=== PATIENT | male | born 1935 | race Caucasian/White ===

== ENCOUNTER 2022-01-20 08:19 | Inpatient (IN) | payer OTHER, BC ==
[2022-01-20 08:37] LABS: Hematocrit 43.9 % (39.6-49.0); MPV 8.2 fL (7.6-11.3); RBC Red Blood Cell Count 4.93 M/uL (4.33-5.43)
--- OUTSIDE RECORDS SUMMARY | 2022-01-20 08:38 | XMS REPORT | Continuity of Care Document ---
:1935 Author Organization [facility] t Address [address] [place] [address] Care Team Providers Name Role Phone GIO DONAHUE Primary Care Physician Unavailable [id number] Attending Clinician Unavailable NADIA RDZ Attending Clinician Unavailable DANIAL BUTT Attending Clinician Unavailable Charlene COOK Attending Clinician Unavailable JAIDA Attending Clinician Unavailable JAIDA Attending Clinician Unavailable Carlos Rdz Attending Clinician Unavailable CARLOS RDZ Attending Clinician Unavailable Alvaro Hinton Attending Clinician Unavailable Susan JEROME Attending Clinician Unavailable Axel TENORIO S Attending Clinician Boubacar TENORIO Attending Clinician Taryn Veronica Attending Clinician Unavailable Doctor Unassigned, Name Attending Clinician Unavailable Naman TENORIO Carrillo Attending Clinician CARRILLO FLORENCE Attending Clinician Unavailable Provider, Urgent Care Attending Clinician Unavailable Jasen ERICKSON Attending Clinician JASEN Attending Clinician Unavailable Sher TENORIO Attending Clinician Nancy Hinton DO Attending Clinician Mehrdad ERICKSON Attending Clinician Sara TENORIO Attending Clinician Shravan Meredith MD Attending Clinician SHRAVAN MEREDITH Attending Clinician Unavailable SHRAVAN MEREDITH Attending Clinician Unavailable Danial Butt MD Attending Clinician Only, Test Attending Clinician Unavailable Kylah CHAPMAN Attending Clinician Only, Test Attending Clinician Unavailable Charlene Cook MD Attending Clinician Rj MENDES Attending Clinician Unavailable Robin Richardson MD Attending Clinician Robin RICHARDSON Attending Clinician Unavailable Robinson TENORIO Attending Clinician Pob, Lab Main Attending Clinician Unavailable Abhishek TENORIO Attending Clinician ABHISHEK Attending Clinician Unavailable RADIOLOGY Attending Clinician Unavailable Radiology Attending Clinician Unavailable Earle Wilkins MD Attending Clinician Unknown Attending Clinician Unavailable Afshin Wnin MD Attending Clinician [id number] Admitting Clinician Unavailable NADIA RDZ Admitting Clinician Unavailable DANIAL BUTT Admitting Clinician Unavailable Charlene COOK Admitting Clinician Unavailable CARLOS RDZ Admitting Clinician Unavailable Alvaro Hinton Admitting Clinician Unavailable Boubacar TENORIO Admitting Clinician Sara TENORIO Admitting Clinician Danial Butt MD Admitting Clinician Charlene Cook MD Admitting Clinician NEIDA VERONICA Admitting Clinician Unavailable Payers Payer Name Policy Type Policy Number Effective Date Expiration Date S [facility] [id number] BCTX BCTI [id number] BCBS FED SELECT [id number] 2000 00:00:00 MEDICARE PART A [id number] 2000 00:00:00 Advance Directives Directive Decision Effective Termination Comments Source Date Date Healthcare Agents on N/A [facility] ersity FileNameRelationshipHealthcare of [place] Agent Medical RelationshipCommunicationSuniversity hospitals st. 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 2-14 ity of congestive congestive 00:[place] heart heart 00 Medical failure failure Branch UTI UTI Disease Active Univers (urinary (urinary 2-14 ity of tract tract 00:00: [place] infection) infection) 00 Me dical Branch 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 Added automatic ally from request for surgery [id number] Bilateral Bilateral Disease Active Overview: Univers occipital occipital 6-04 Formattin i ty of neuralgia neuralgia 00:00: g of this [place] 00 note Medical might be Branch different from the original. Added automatic ally from request for surgery [id number] Cervical Cervical Disease Active Overview: Un brian spondylosi spondylosi 6-04 Formattin ity of s without s without 00:00: g of this [place] myelopathy myelopathy 00 note Me dical might be Branch different from the original. Added automatic ally from request for surgery [id number] Myalgia Myalgia Disease Active Overview: Univ ers 03-28 Formattin ity of 00:00: g of this [place] 00 note Medical might be Branch different from the original. Added automatic ally from request for surgery [id number] Left Left Disease Active Univers shoulder shoulder 03-04 ity of pain pain 00:00: [place] 00 Medical Branch Allergies, Adverse Reactions, Alerts Allergy Allergy Status Severity Reaction(s) Onset Inactive Treating Comm ents Source Name Type Date Date Clinician Penicill DA Active SV 2020-0 [facility] 03[facility]21 [place] [facility] meperidi DA Active SV 2020-0 [facility] ne 03-21 [place] 00:00: [facility] Penicill DA Active SV RASH 2020-0 [facility] ins 03-21 [place] 00:00: [facility] meperidi DA Active SV HALLUCINATIO 0 HC A ne NS 03-21 [place] 00:00: [facility] Penicill DA Active U UNKNOWN [facility] ins 01-29 00:00: [place] [facility] meperidi DA Active U UNKNOWN 2020-0 [facility] ne 01-29 00:00: [place] [facility] Penicill DA Active U 2020-0 [facility] ins 01-29 00:00: [place] [facility] meperidi DA Active U 2020-0 [facility] ne 01-29 00:00: [place] [facility] Meperidi Propensi Active Hallucinatio Univers ne Hcl ty to ns 5 ity of adverse 00:00: [place] reaction 00 Medical s Branch Penicill Propensi Active Rash Univer s ins ty to 5-11 ity of adverse 00:00: [place] reaction 00 Medical s Branch MEPERIDI DRUG Active Hallucinates 2015-0 Un brian NE HCL INGREDI 5-11 ity of 00:00: [place] [address] Medical Branch PENICILL Drug Active Rash 2015-0 Univers INS Class 5-11 ity of 00:00: [place] [address] Medical Branch Social History Social Habit Start Date Stop Date Quantity Comments Source Exposure to Unable to assess Univers ity of SARS-CoV-2 [place] Medical (event) Branch Alcohol intake 2021-03-30 2021-03-30 Current drinker of Un iversity of 00:00:00 00:00:00 alcohol (finding) [facility] edical Branch History SDOH 2021-03-30 2021-03-30 12 University o f Education 00:00:00 00:00:00 [facility] [place] [facility] Tobacco use and 2021-03-30 2021-03-30 Never used Universit y of exposure 00:00:00 00:00:00 [place] [facility] History SDAK 2020-06-14 2020-06-14 99 University o f Alcohol Frequency 00:00:00 00:00:00 [facility] edical Branch History SDOH 2020-06-14 2020-06-14 1 University o f Alcohol Std 00:00:00 00:00:00 [place] Medical Drinks Branch History SDAK 2020-06-14 2020-06-14 4 University o f Alcohol Binge 00:00:00 00:00:00 [facility] al Branch Tobacco Comment 2020-06-14 2020-06-14 quit 40 years ago Un iversity of 00:00:00 00:00:00 [facility] [place] [facility] Alcohol Comment 2018-08-08 2018-08-08 occaisonally Univers ity of 00:00:00 00:00:00 [facility] [place] [facility] Sex Ass[birth year] At [birth year] Universit y of 00:00:00 00:00:00 [facility] [place] [facility] Smoking Status Start Date Stop Date Source Former smoker 2021-03-30 00:00:00 2021-03-30 00:00:00 Universi ty of [facility] [place] [facility] Never smoker [facility] Medical Branch Medications Ordered Filled Start Stop Current Ordering Indication Dosage Frequency Signature Comments Components Source Medication Medication Date Date Medication? Clinician (SIG) Name Name aspirin Yes 81mg Take 81 mg Univ ers (KWAME 6-13 by mouth ity of CHEWABLE 18:50: daily. [place] ASPIRIN) 81 45 Medical mg chewable Branch tablet magnesium Yes 1{capsu Take 1 Uni vers oxide 400 6-13 le} capsule by ity of mg capsule 18:50: mouth [place] 45 daily. Medical Branch tamsulosin Yes tamsulosin U nivers 0.4 mg 24 6-13 0.4 mg ity of hr capsule 18:50: capsule [place] 45 Take 1 Medical capsule Branch every day by oral route as directed for 30 days. watch out for or stop if: headache, dizziness upon standing, or worsened nasal congestion . ascorbic Yes 500mg Take 500 Univ ers acid, 6-13 mg by ity of vitamin C, 18:50: mouth. [place] (VITAMIN C) 45 Medical 500 mg Branch Cranberry Yes 1{capsu Take 1 Uni vers 400 mg Cap 6-13 le} capsule by ity of 18:50: mouth 3 [place] 45 (three) Medical times Branch daily. loratadine Yes 10mg Take 10 mg U nivers (CLARITIN) 6-13 by mouth ity o f 10 mg 18:50: daily. [place] tablet 45 Medical Branch montelukast Yes 10mg Take 10 mg Univers 10 mg 6-13 by mouth. ity of tablet 18:50: [place] 45 Medical Branch fluticasone Yes Use in Uni vers propionate 6-13 each ity of 50 18:50: nostril [place] mcg/actuati 45 daily. Medica l on nasal Branch spray aspirin Yes 81mg Take 81 mg Univ ers (KWAME 6-13 by mouth ity of CHEWABLE 18:50: daily. [place] ASPIRIN) 81 45 Medical mg chewable Branch tablet magnesium Yes 1{capsu Take 1 Uni vers oxide 400 6-13 le} capsule by ity of mg capsule 18:50: mouth [place] 45 daily. Medical Branch tamsulosin Yes tamsulosin U nivers 0.4 mg 24 6-13 0.4 mg ity of hr capsule 18:50: capsule [place] 45 Take 1 Medical capsule Branch every day by oral route as directed for 30 days. watch out for or stop if: headache, dizziness upon standing, or worsened nasal congestion . ascorbic Yes 500mg Take 500 Univ ers acid, 6-13 mg by ity of vitamin C, 18:50: mouth. [place] (VITAMIN C) 45 Medical 500 mg Branch Cranberry Yes 1{capsu Take 1 Uni vers 400 mg Cap 6-13 le} capsule by ity of 18:50: mouth 3 [place] 45 (three) Medical times Branch daily. loratadine Yes 10mg Take 10 mg U nivers (CLARITIN) 6-13 by mouth ity o f 10 mg 18:50: daily. [place] tablet 45 Medical Branch montelukast Yes 10mg Take 10 mg Univers 10 mg 6-13 by mouth. ity of tablet 18:50: [place] 45 [facility] Branch fluticasone Yes Use in Uni vers propionate 6-13 each ity of 50 18:50: nostril [place] mcg/actuati 45 daily. Medica l on nasal Branch spray KCL 2020- No 40meq 40 mEq, Univers (KLOR-CON 04-06- Oral, ity of M20) tablet 17:00: 17:25 ONCE, 1 [place] 40 mEq 00 :00 dose, [place] [facility] 04/06/21 at Branch 1200, Routine metoprolol Yes 75mg 75 mg, Unive rs tartrate 6-13 Oral, BID, ity o f (LOPRESSOR) 15:30: First dose [place] tablet 75 00 (after Medical mg last Branch modificati on) on [place] 04/06/21 at 1030, Until Discontinu ed, Routine cyclobenzap Yes [id number] 10mg Take 1 Univers rine 10 mg 6-13 tablet by ity of tablet 00:00: mouth 3 [place] 00 (three) Medical times [place] daily as needed for Muscle Spasms. cyclobenzap Yes [id number] 10mg Take 1 Univers rine 10 mg 6-13 tablet by ity of tablet 00:00: mouth 3 [place] 00 (three) Medical times [place] daily as needed for Muscle Spasms. amoxicillin 202- No 1{tbl} 1 tablet, Univers -clavulanat 04-0517 Oral, ity of e 01:00: 00:59 Q12H, 10 [place] (AUGMENTIN) 00 :00 doses, Medica l 875-125 mg First dose Bra nch per tablet on Wed 1 tablet 04/04/21 at 2000, Last dose on 04/09/21 at 0800, Routine
Reason for Anti-Infec tive: Documented Infection< br>Documen chava Infection Site: Respirator y
Durat ion of Therapy: 7 days levothyroxi Yes 100ug Take 1 Uni vers ne 6-12 tablet by ity of (SYNTHROID) 00:00: mouth [place] 100 mcg 00 every Medical tablet morning. Branch levothyroxi Yes 100ug Take 1 Uni vers ne 6-12 tablet by ity of (SYNTHROID) 00:00: mouth [place] 100 mcg 00 every Medical tablet morning. Branch furosemide 2020- No [id number] 40mg Take 1 Univers 40 mg 04-05 00 tablet by ity of tablet 00:00: 04:59 mouth [place] 00 :00 daily for Medical 30 days. Branch metFORMIN 2020- No [id number] 500mg Take 1 Univers 500 mg 04-05 tablet by ity of tablet 00:00: 04:59 mouth [place] 00 :00 daily Medical before a Branch meal for 30 days. furosemide 2020- No [id number] 40mg Take 1 Univers 40 mg 04-05 00 tablet by ity of tablet 00:00: 04:59 mouth [place] 00 :00 daily for Medical 30 days. Branch metFORMIN 2020- No [id number] 500mg Take 1 Univers 500 mg 04-05 tablet by ity of tablet 00:00: 04:59 mouth [place] 00 :00 daily Medical before a Branch meal for 30 days. levoFLOXaci 2020- No [id number] 750mg Take 1 Univers n 750 mg 04-0518 tablet by ity o f tablet 00:00: 04:59 mouth [place] 00 :00 every 24 Medical (twenty-fo Branch ur) hours for 5 days. levoFLOXaci 2020- No [id number] 750mg Take 1 Univers n 750 mg 04-0518 tablet by ity o f tablet 00:00: 04:59 mouth [place] 00 :00 every 24 Medical (twenty-fo Branch ur) hours for 5 days. L.acid/L.ca 2020- No Take by U nivers sei/B.bif/B 04-04 mouth. ity o f .joanna/FOS 21:23: 00:00 [place] (PROBIOTIC 05 :00 Medical BLEND ORAL) Branch metoprolol 2020- No 25mg Take 25 mg Univers tartrate 25 04-04 by mouth 2 i ty of mg tablet 21:23: 00:00 (two) [place] 05 :00 times Medical daily. Branch sulfamethox 2020- No 1{tbl} Take 1 U nivers azole-trime 04-04 tablet by it y of thoprim 21:23: 00:00 mouth 2 [place] 800-160 mg 05 :00 (two) Medical per tablet times Branch daily. benzonatate 2020- No 100mg Take 100 Univers 100 mg 04-04 mg by ity of capsule 21:23: 00:00 mouth. [place] 05 :00 Medical Branch niacin TR Yes 1000mg Take 1 Univ ers SUSTAINED 6-11 tablet by ity o f RELEASE 00:00: mouth at [place] 1,000 mg 00 bedtime. Medical tablet Branch niacin TR Yes 1000mg Take 1 Univ ers SUSTAINED 6-11 tablet by ity o f RELEASE 00:00: mouth at [place] 1,000 mg 00 bedtime. Medical tablet Branch metoprolol 2020- No [id number] 75mg Take 75 mg Univers tartrate 75 04-04 00 by mouth 2 i ty of mg Tab 00:00: 04:59 (two) [place] 00 :00 times Medical daily for Branch 30 days. metoprolol 2020- No [id number] 75mg Take 75 mg Univers tartrate 75 04-04-12 00 by mouth 2 i ty of mg Tab 00:00: 04:59 (two) [place] 00 :00 times Medical daily for Branch 30 days. amoxicillin 2020- No [id number] 1{tbl} Take 1 Univers -clavulanat 04-04 tablet by it y of e 875-125 00:00: 04:59 mouth [place] mg per 00 :00 every 12 Medical tablet (twelve) Branch hours for 5 days. amoxicillin 2020- No [id number] 1{tbl} Take 1 Univers -clavulanat 04-0417 tablet by it y of e 875-125 00:00: 04:59 mouth [place] mg per 00 :00 every 12 Medical tablet (twelve) Branch hours for 5 days. sodium Yes 1{spray 1 [place], Univ ers chloride 6-10 } Nasal, ity of (OCEAN MIST 21:15: QID, First [place] NASAL) 0.65 00 dose on Medic al % nasal April Branch spray 1 04/03/21 at [place] 1615, Until Discontinu ed, Routine oxymetazoli Yes 1{spray 1 [place], Univers ne 6-10 } Nasal, ity of (OXYMETAZOL 21:10: BIDPRN, [place] as INE HCL) 01 Starting Medical 0.05 % April Branch nasal spray 04/03/21 at 1 [place] 1610, Until Discontinu ed, Routine, Nosebleed levoFLOXaci Yes 750mg 750 mg, Un brian n 6-10 Oral, Q24H ity of (LEVAQUIN) 14:15: ABX, First [place] tablet 750 00 dose on Medica l mg April Branch 04/03/21 at 0915, Until Discontinu ed, BRANDAN
Re ason for Anti-Infec tive: Documented Infection< br>Documen chava Infection Site: Respirator y
Durat ion of Therapy: 7 days piperacilli 2020- No 3.375g 3.375 g, Univers n-tazobacta 04-0311 IV ity of m (ZOSYN) 14:15: 21:16 Piggyback, [place] 3.375 g in 00 :37 Q6H ABX, Medic al NaCl 0.9% First dose Bran ch (NS) 100 mL on [place] MINI-BAG 04/03/21 at 0915, Until Discontinu ed, 100 mL
R alejandra for Anti-Infec tive: Documented Infection< br>Documen chava Infection Site: Respirator y
Durat ion of Therapy: 7 days furosemide Yes 40mg 40 mg, Unive rs (LASIX) 6-10 Oral, ity of tablet 40 14:00: DAILY, [place] mg 00 First dose Medical on [facility] Branch 04/03/21 at 0900, Until Discontinu ed, Routine KCL 2020- No 40meq 40 mEq, Univers (KLOR-CON 04-03 Oral, ity of M20) tablet 13:45: 14:12 ONCE, 1 [place] 40 mEq 00 :00 dose, [facility] Medical 04/03/21 at Branch 0845, Routine Sliding Yes Subcutaneo Univ ers Scale -10 us, TID ity of Insulin - 02:00: MEALS+HS, [place] as Lispro 00 First dose Medical (HumaLOG) + on Wed Fsbg 04/02/21 at [place] 2100, Until Discontinu ed, Routine furosemide 2020- No 20mg 20 mg, Univ ers (LASIX) 04-03 Slow IV ity of injection 01:00: 12:36 Push, [place] 20 mg 00 :16 Q12H, Medical First dose Branch (after last modificati on) on Wed04/02/21 at 2000, Until Discontinu ed, Routine ipratropium Yes 3mL 3 mL, Unive rs -albuteroL 04-02 Inhalation ity of (DUONEB) 19:26: , QIDPRN, [place] 0.5 mg-3 50 Starting Medical mg(2.5 mg Wed04/02/21 Bran ch base)/3 mL at 1426, nebulizer Until solution 3 Discontinu mL ed, Routine, Wheezing, Shortness of Breath metFORMIN Yes 500mg 500 mg, Univ ers (GLUCOPHAGE 04-02 Oral, ONCE it y of ) tablet 14:30: DAILY AC, [place] 500 mg 00 First dose Medical on [facility] Branch 04/02/21 at 0930, Until Discontinu ed, Routine losartan Yes 50mg 50 mg, Univers (COZAAR) 04-02 Oral, BID, ity o f tablet 50 14:15: First dose [place] mg 00 on [facility] 04/02/21 at Branch 0915, Until Discontinu ed, Routine sodium 2020- No 650mg 650 mg, Univer s bicarbonate 04-02 Oral, QID, i ty of (ANTACID 14:15: 12:19 First dose [place] (SODIUM 00 :48 on Wed Medical BICARBONATE 04/02/21 at [facility] )) tablet 0915, 650 mg Until Discontinu ed, Routine metoprolol No 75mg 75 mg, [facility] ers tartrate 04-02 Oral, BID, ity of (LOPRESSOR) 14:00: 14:35 First dose [place] tablet 75 00 :43 (after Medical mg last Branch modificati on) on Wed04/02/21 at 0900, Until Discontinu ed, Routine metoprolol No 50mg 50 mg, [facility] ers tartrate 04-02 Oral, BID, ity of (LOPRESSOR) 01:00: 13:50 First dose [place] tablet 50 00 :48 (after Medical mg last Branch modificati on) on Wed04/01/21 at 2000, Until Discontinu ed, Routine sodium No 50meq IV Univers bicarbonate 04-01 Infusion, it y of 50 mEq in 19:30: 14:13 at 75 [place] D5W 0.45% 00 :11 mL/hr, 50 Medic al NaCl mEq, Branch (1/2NS) CONTINUOUS 1,000 mL IV , Starting infusion Wed04/01/21 at 1430, Until Wed04/02/21 at 0913, Routine metoprolol No 25mg 25 mg, [facility] ers tartrate 04-01 Oral, ity of (LOPRESSOR) 19:15: 21:03 ONCE, 1 [place] tablet 25 00 :00 dose, Wed Medic al mg 04/01/21 at Branch 1415, Routine furosemide No 20mg 20 mg, [facility] ers (LASIX) 04-01 Slow IV ity of injection 17:45: 23:00 Push, [place] 20 mg 00 :50 DAILY, Medical First dose Branch on Wed04/01/21 at 1245, Until Discontinu ed, Routine levoFLOXaci No 500mg 500 mg, IV Univers n in D5W 04-01 06-10 Piggyback, ity of (LEVAQUIN) 14:00: 13:11 Q24H ABX, [place] 500 mg/100 00 :27 First dose Med ical mL on Branch Piggyback 04/01/21 at 500 mg 0900, Until Discontinu ed, 100 mL
R alejandra for Anti-Infec tive: Empiric Therapy for Suspected Infection< br>Empiric Therapy Site: Respirator y
Durat ion of therapy: 72 hours sodium 2020- No 50meq IV Univers bicarbonate 03-31 06-08 Infusion, it y of 50 mEq in 15:30: 15:29 at 75 [place] D5W 0.45% 00 :00 mL/hr, 50 Medic al NaCl mEq, Branch (1/2NS) CONTINUOUS 1,000 mL IV , Starting infusion Wed03/31/21 at 1030, Until Wed04/01/21 at 1029, Routine tamsulosin Yes .4mg 0.4 mg, Univ ers (FLOMAX) 03-31 Oral, ity of capsule 0.4 14:00: DAILY, [place] mg 00 First dose Medical on [facility] 03/31/21 at 0900, Until Discontinu ed, Routine montelukast Yes 10mg 10 mg, Univ ers (SINGULAIR) 03-31 Oral, ity of tablet 10 14:00: DAILY, [place] mg 00 First dose Medical on [facility] 03/31/21 at 0900, Until Discontinu ed, Routine finasteride Yes 5mg 5 mg, Unive rs (PROSCAR) 03-31 Oral, ity of tablet 5 mg 14:00: DAILY, [place] 00 First dose Medical on [facility] 03/31/21 at 0900, Until Discontinu ed, Routine aspirin Yes 81mg 81 mg, Univers chewable 03-31 Oral, ity of tablet 81 14:00: DAILY, [place] mg 00 First dose Medical on [facility] 03/31/21 at 0900, Until Discontinu ed, Routine levothyroxi Yes 100ug 100 mcg, U nivers ne 03-31 Oral, ity of (SYNTHROID) 11:00: QAM-0600, [place] tablet 100 00 First dose Med ical mcg on [facility] 03/31/21 at 0600, Until Discontinu ed, Routine metoprolol 2020- No 5mg 5 mg, Unive rs (LOPRESSOR) 03-31 06-07 Intravenou i ty of injection 5 05:00: 17:53 s, Q6H, [place] mg 00 :46 First dose Medical on Wed [place] 03/31/21 at 0000, Until Discontinu ed, Routine QUEtiapine 0 Yes 50mg 50 mg, Unive rs (SEROQUEL) -07 Oral, QHS, ity of tablet 50 02:00: First dose [place] mg 00 on [facility] 03/30/21 at [place] 2100, Until Discontinu ed, Routine niacin TR 2020-0 Yes 1000mg 1,000 mg, U nivers SUSTAINED - Oral, QHS, ity of RELEASE 02:00: First dose [place] (NIACIN TR) 00 on [place] [facility]ica l tablet 03/30/21 at [place] 1,000 mg 2100, Until Discontinu ed, Routine
burn crew member approving Non-formul radha medication : MEGADC
Reason for non-formul radha use: PATIENT CURRENTLY TAKING NONFORMULA RY PRODUCT sennosides Yes 8.6mg 8.6 mg, Uni vers (SENOKOT) 03-31 Oral, BID, ity of tablet 8.6 01:00: First dose [place] mg 00 on [facility] 03/30/21 at [place] 1999, Until Discontinu ed, Routine hydrALAZINE 0 Yes 100mg 100 mg, Un brian (APRESOLINE 03-31 Oral, BID, it y of ) tablet 01:00: First dose [place] 100 mg 00 on [facility] 03/30/21 at [place] 1999, Until Discontinu ed, Routine docusate 0 Yes 100mg 100 mg, Unive rs (COLACE) 03-31 Oral, BID, ity o f capsule 100 01:00: First dose [place] mg 00 on [facility] 03/30/21 at [place] 1999, Until Discontinu ed, Routine apixaban 0 Yes 1358 5mg 5 mg, Univers (ELIQUIS) 03-31 Oral, BID, ity of tablet 5 mg 01:00: First dose [place] 00 on [facility] 03/30/21 at [place] 1999, Until Discontinu ed, Routine amLODIPine 2020-0 Yes 5mg 5 mg, Univer s (NORVASC) 03-31 Oral, BID, ity of tablet 5 mg 01:00: First dose [place] 00 on [place] [facility] 03/30/21 at Branch 1999, Until Discontinu ed, Routine metoprolol No 25mg 25 mg, Univ ers tartrate 03-31 Oral, BID, ity of (LOPRESSOR) 01:00: 18:09 First dose [place] tablet 25 00 :07 on [place] [facility] mg 03/30/21 at Branch 1999, Until Discontinu ed, Routine metoprolol 2020- No 5mg 5 mg, Unive rs (LOPRESSOR) 03-31 Intravenou i ty of injection 5 01:00: 00:29 s, ONCE [place] mg 00 :00 NOW, 1 Medical dose, [facility] 03/30/21 at 2000, Routine rivastigmin Yes 4.5mg 4.5 mg, Un brian e tartrate 03-30 Oral, ity of (EXELON) 22:00: QAM+PM, [place] capsule 4.5 00 First dose Me dical mg on [facility] 03/30/21 at 1700, Until Discontinu ed
Facu lty member approving Restricted medication : MEGADC metoprolol No 5mg 5 mg, Unive rs (LOPRESSOR) 03-30 Intravenou i ty of injection 5 17:30: 16:41 s, ONCE [place] mg 00 :00 NOW, 1 Medical dose, [facility] 03/30/21 at 1230, Routine metroNIDAZO No 500mg 500 mg, IV Univers LE in NaCl 03-30 Infusion, ity of (iso-os) 17:00: 17:35 Q8H ABX, [place] (FLAGYL 00 :48 First dose Medica l I.V.) RTU on [facility] IV infusion 03/30/21 at 500 mg 1200, Until Discontinu ed, 100 mL
Reas on for Anti-Infec tive: Documented Infection< br>Documen chava Infection Site: Abdominal< br>Dura tion of Therapy: 7 days NaCl 0.9% No 1000mL at 75 [facility] ers (NS) IV 03-30 mL/hr, IV ity of infusion 15:30: 13:39 Infusion, [place] 1,000 mL 00 :30 CONTINUOUS Medic al , Starting Branch [place] 03/30/21 at 1030, Until 03/31/21 at 0839, Routine ciprofloxac 2020- No 200mg 200 mg, IV [facility] in in 5 % [id number] Piggyback, ity of dextrose 10:00: 00:03 Administer [place] (CIPRO) 00 :41 over 60 Medical piggyback Minutes, Branch 200 mg Q12H ABX, First dose on [place] 03/30/21 at 0500, Until Discontinu ed, BRANDAN
Re ason for Anti-Infec tive: Documented Infection< br>Documen chava Infection Site: Abdominal< br>Duratio n of Therapy: 7 days NaCl 0.9% 2020- No 30mL/kg at 999 [facility] (NS) bolus 03-30 mL/hr, ity of infusion 10:00: 10:29 2,244 mL [place] 2,244 mL 00 :00 (30 mL/kg Medica l ?74.8 kg), [place] IV Piggyback, ONCE, 1 dose, [place] 03/30/21 at 0500, STAT metroNIDAZO 2020- No 500mg 500 mg, U nivers LE (FLAGYL) 03-30 Oral, ity of tablet 500 10:00: 08:52 ONCE, 1 [place] mg 00 :00 dose, [facility] 03/30/21 at Branch 0500, Routine
Reason for Anti-Infec tive: Documented Infection< br>Documen chava Infection Site: Abdominal< br>Duratio n of Therapy: Other (see Comments) levoFLOXaci 2020- No 750mg 750 mg, IV [facility] n in D5W 03-30 Piggyback, ity of (LEVAQUIN) 09:45: 10:21 ONCE, 1 [place] 750 mg/150 00 :00 dose, [place] Medi shilpa mL 03/30/21 at Branch Piggyback 0445, 150 750 mg mL
Reas on for Anti-Infec tive: Documented Infection< br>Documen chava Infection Site: Respirator y
Durat ion of Therapy: Other (see Comments) ondansetron Yes 4mg 4 mg, Slow [facility] (ZOFRAN 03-30 IV Push, ity of (PF)) 08:46: Q6HPRN, [place] injection 4 16 Starting Medi shilpa mg [place] 03/30/21 Branch at 0346, Until Discontinu ed, Routine, Nausea and Vomiting (N/V) acetaminoph Yes 650mg 650 mg, [facility] en 06 Oral, ity of (TYLENOL) 08:45: Q6HPRN, [place] tablet 650 58 Starting Medic al mg 03/30/21 Branch at 0345, Until Discontinu ed, Routine, Pain (scale 1-3), Temp > 38.5 C sulfamethox 1- No [id number] 1{tbl} Take 1 [facility] azole-trime 3-18 02-04 tablet by it y of oprim 00:00: 04:59 mouth 2 [place] (BACTRIM 00 :00 (two) Medical DS) 800-160 times Branch mg per daily for tablet 7 days. tetanus-dip 2020- No .5mL 0.5 mL, [facility] htheria 12-16 Intramuscu ity o f toxoids 16:45: 15:50 lar, ONCE, [place] (TENIVAC) 00 :00 1 dose, Medical 5-2 Lf Mon Branch unit/0.5 mL 12/16/20 at injection 1045, 0.5 mL Routine KCL 20 mEq 2020- No [id number] 20meq Take 1 [facility] tablet -12 01-24 tablet by ity of 00:00: 04:59 mouth [place] 00 :00 daily for Medical 30 days. Branch KCL 20 mEq 0 2020- No [id number] 20meq Take 1 [facility] tablet 2-12 01-24 tablet by ity of 00:00: 04:59 mouth [place] 00 :00 daily for Medical 30 days. Branch KCL 20 mEq 2020-0 2020- No [id number] 20meq Take 1 [facility] tablet 2-12 01-24 tablet by ity of 00:00: 04:59 mouth [place] 00 :00 daily for Medical 30 days. Branch KCL 20 mEq 2020-0 2020- No [id number] 20meq Take 1 [facility] tablet 2-21 03-24 tablet by ity of 00:00: 04:59 mouth [place] 00 :00 daily for Medical 30 days. Branch aspirin Yes 81mg Take 81 mg Univ ers (KWAME 2-20 by mouth ity of CHEWABLE 21:25: daily. [place] ASPIRIN) 81 05 Medical mg chewable Branch tablet magnesium Yes 1{capsu Take 1 Uni vers oxide 400 2-20 le} capsule by ity of mg capsule 21:25: mouth [place] 05 daily. Medical Branch tamsulosin Yes tamsulosin [facility] n[facility] 0.4 mg 24 2-20 0.4 mg ity of hr capsule 21:25: capsule [place] 05 Take 1 Medical capsule Branch every day by oral route as directed for 30 days. watch out for or stop if: headache, dizziness upon standing, or worsened nasal congestion . L.acid/L.ca Yes Take by [place] sei/B.bif/B 2-20 mouth. ity of .joanna/FOS 21:25: [place] (PROBIOTIC 05 Medical BLEND ORAL) Branch ascorbic Yes 500mg Take 500 Univ ers acid, 2-20 mg by ity of vitamin C, 21:25: mouth. [place] (VITAMIN C) 05 Medical 500 mg Branch Cranberry Yes 1{capsu Take 1 Uni vers 400 mg Cap 2-20 le} capsule by ity of 21:25: mouth 3 [place] 05 (three) Medical times Branch daily. loratadine Yes 10mg Take 10 mg U nivers (CLARITIN) 2-20 by mouth ity o f 10 mg 21:25: daily. [place] tablet 05 Medical Branch aspirin Yes 81mg Take 81 mg Univ ers (KWAME 2-20 by mouth ity of CHEWABLE 21:25: daily. [place] ASPIRIN) 81 05 Medical mg chewable Branch tablet magnesium Yes 1{capsu Take 1 Uni vers oxide 400 2-20 le} capsule by ity of mg capsule 21:25: mouth [place] 05 daily. Medical Branch tamsulosin Yes tamsulosin U n[facility] 0.4 mg 24 2-20 0.4 mg ity of hr capsule 21:25: capsule [place] 05 Take 1 Medical capsule Branch every day by oral route as directed for 30 days. watch out for or stop if: headache, dizziness upon standing, or worsened nasal congestion . L.acid/L.ca Yes Take by [facility] [place] sei/B.bif/B 2-20 mouth. ity of .joanna/FOS 21:25: [place] (PROBIOTIC 05 Medical BLEND ORAL) Branch ascorbic Yes 500mg Take 500 Univ ers acid, 2-20 mg by ity of vitamin C, 21:25: mouth. [place] (VITAMIN C) 05 Medical 500 mg Branch Cranberry Yes 1{capsu Take 1 Uni vers 400 mg Cap 2-20 le} capsule by ity of 21:25: mouth 3 [place] 05 (three) Medical times Branch daily. loratadine Yes 10mg Take 10 mg U nivers (CLARITIN) 2-20 by mouth ity o f 10 mg 21:25: daily. [place] tablet 05 Medical Branch aspirin Yes 81mg Take 81 mg Univ ers (KWAME 2-20 by mouth ity of CHEWABLE 21:25: daily. [place] ASPIRIN) 81 05 Medical mg chewable Branch tablet magnesium Yes 1{capsu Take 1 Uni vers oxide 400 2-20 le} capsule by ity of mg capsule 21:25: mouth [place] 05 daily. Medical Branch tamsulosin Yes tamsulosin [facility] 0.4 mg 24 2-20 0.4 mg ity of hr capsule 21:25: capsule [place] 05 Take 1 Medical capsule Branch every day by oral route as directed for 30 days. watch out for or stop if: headache, dizziness upon standing, or worsened nasal congestion . L.acid/L.ca Yes Take by [facility] sei/B.bif/B 2-20 mouth. ity of .joanna/FOS 21:25: [place] (PROBIOTIC 05 Medical BLEND ORAL) Branch ascorbic Yes 500mg Take 500 Univ ers acid, 2-20 mg by ity of vitamin C, 21:25: mouth. [place] (VITAMIN C) 05 Medical 500 mg Branch Cranberry Yes 1{capsu Take 1 Uni vers 400 mg Cap 2-20 le} capsule by ity of 21:25: mouth 3 [place] 05 (three) Medical times Branch daily. loratadine Yes 10mg Take 10 mg U nivers (CLARITIN) 2-20 by mouth ity o f 10 mg 21:25: daily. [place] tablet 05 Medical Branch aspirin Yes 81mg Take 81 mg Univ ers (KWAME 2-20 by mouth ity of CHEWABLE 21:25: daily. [place] ASPIRIN) 81 05 Medical mg chewable Branch tablet magnesium Yes 1{capsu Take 1 Uni vers oxide 400 2-20 le} capsule by ity of mg capsule 21:25: mouth [place] 05 daily. Medical Branch tamsulosin Yes tamsulosin U nivers 0.4 mg 24 2-20 0.4 mg ity of hr capsule 21:25: capsule [place] 05 Take 1 Medical capsule Branch every day by oral route as directed for 30 days. watch out for or stop if: headache, dizziness upon standing, or worsened nasal congestion . L.acid/L.ca Yes Take by [facility] sei/B.bif/B 2-20 mouth. ity of .joanna/FOS 21:25: [place] (PROBIOTIC 05 Medical BLEND ORAL) Branch ascorbic Yes 500mg Take 500 Univ ers acid, 2-20 mg by ity of vitamin C, 21:25: mouth. [place] (VITAMIN C) 05 Medical 500 mg Branch Cranberry Yes 1{capsu Take 1 Uni vers 400 mg Cap 2-20 le} capsule by ity of 21:25: mouth 3 [place] 05 (three) Medical times Branch daily. loratadine Yes 10mg Take 10 mg U nivers (CLARITIN) 2-20 by mouth ity o f 10 mg 21:25: daily. [place] tablet 05 Medical Branch aspirin Yes 81mg Take 81 mg Univ ers (KWAME 2-20 by mouth ity of CHEWABLE 21:25: daily. [place] ASPIRIN) 81 05 Medical mg chewable Branch tablet magnesium Yes 1{capsu Take 1 Uni vers oxide 400 2-20 le} capsule by ity of mg capsule 21:25: mouth [place] 05 daily. Medical Branch tamsulosin Yes tamsulosin U n[facility] 0.4 mg 24 2-20 0.4 mg ity of hr capsule 21:25: capsule [place] 05 Take 1 Medical capsule Branch every day by oral route as directed for 30 days. watch out for or stop if: headache, dizziness upon standing, or worsened nasal congestion . L.acid/L.ca Yes Take by [facility] sei/B.bif/B 2-20 mouth. ity of .joanna/FOS 21:25: [place] (PROBIOTIC 05 Medical BLEND ORAL) Branch ascorbic Yes 500mg Take 500 Univ ers acid, 2-20 mg by ity of vitamin C, 21:25: mouth. [place] (VITAMIN C) 05 Medical 500 mg Branch Cranberry Yes 1{capsu Take 1 Uni vers 400 mg Cap 2-20 le} capsule by ity of 21:25: mouth 3 [place] 05 (three) Medical times Branch daily. loratadine Yes 10mg Take 10 mg U nivers (CLARITIN) 2-20 by mouth ity o f 10 mg 21:25: daily. [place] tablet 05 Medical Branch aspirin Yes 81mg Take 81 mg Univ ers (KWAME 2-20 by mouth ity of CHEWABLE 21:25: daily. [place] ASPIRIN) 81 05 Medical mg chewable Branch tablet magnesium Yes 1{capsu Take 1 Uni vers oxide 400 2-20 le} capsule by ity of mg capsule 21:25: mouth [place] 05 daily. Medical Branch tamsulosin Yes tamsulosin U n[facility] 0.4 mg 24 2-20 0.4 mg ity of hr capsule 21:25: capsule [place] 05 Take 1 Medical capsule Branch every day by oral route as directed for 30 days. watch out for or stop if: headache, dizziness upon standing, or worsened nasal congestion . L.acid/L.ca Yes Take by [facility] sei/B.bif/B 2-20 mouth. ity of .joanna/FOS 21:25: [place] (PROBIOTIC 05 Medical BLEND ORAL) Branch ascorbic Yes 500mg Take 500 Univ ers acid, 2-20 mg by ity of vitamin C, 21:25: mouth. [place] (VITAMIN C) 05 Medical 500 mg Branch Cranberry Yes 1{capsu Take 1 Uni vers 400 mg Cap 2-20 le} capsule by ity of 21:25: mouth 3 [place] 05 (three) Medical times Branch daily. loratadine Yes 10mg Take 10 mg U nivers (CLARITIN) 2-20 by mouth ity o f 10 mg 21:25: daily. [place] tablet 05 Medical Branch aspirin Yes 81mg Take 81 mg Univ ers (KWAME 2-20 by mouth ity of CHEWABLE 21:25: daily. [place] ASPIRIN) 81 05 Medical mg chewable Branch tablet magnesium Yes 1{capsu Take 1 Uni vers oxide 400 2-20 le} capsule by ity of mg capsule 21:25: mouth [place] 05 daily. Medical Branch tamsulosin Yes tamsulosin U nivers 0.4 mg 24 2-20 0.4 mg ity of hr capsule 21:25: capsule [place] 05 Take 1 Medical capsule Branch every day by oral route as directed for 30 days. watch out for or stop if: headache, dizziness upon standing, or worsened nasal congestion . L.acid/L.ca Yes Take by [facility] sei/B.bif/B 2-20 mouth. ity of .joanna/FOS 21:25: [place] (PROBIOTIC 05 Medical BLEND ORAL) Branch ascorbic Yes 500mg Take 500 Univ ers acid, 2-20 mg by ity of vitamin C, 21:25: mouth. [place] (VITAMIN C) 05 Medical 500 mg Branch Cranberry Yes 1{capsu Take 1 Uni vers 400 mg Cap 2-20 le} capsule by ity of 21:25: mouth 3 [place] 05 (three) Medical times Branch daily. loratadine Yes 10mg Take 10 mg U nivers (CLARITIN) 2-20 by mouth ity o f 10 mg 21:25: daily. [place] tablet 05 Medical Branch aspirin Yes 81mg Take 81 mg Univ ers (KWAME 2-20 by mouth ity of CHEWABLE 21:25: daily. [place] ASPIRIN) 81 05 Medical mg chewable Branch tablet magnesium Yes 1{capsu Take 1 Uni vers oxide 400 2-20 le} capsule by ity of mg capsule 21:25: mouth [place] 05 daily. Medical Branch tamsulosin Yes tamsulosin U nivers 0.4 mg 24 2-20 0.4 mg ity of hr capsule 21:25: capsule [place] 05 Take 1 Medical capsule Branch every day by oral route as directed for 30 days. watch out for or stop if: headache, dizziness upon standing, or worsened nasal congestion . L.acid/L.ca Yes Take by [facility] sei/B.bif/B 2-20 mouth. ity of .joanna/FOS 21:25: [place] (PROBIOTIC 05 Medical BLEND ORAL) Branch ascorbic Yes 500mg Take 500 Univ ers acid, 2-20 mg by ity of vitamin C, 21:25: mouth. [place] (VITAMIN C) 05 Medical 500 mg Branch Cranberry Yes 1{capsu Take 1 Uni vers 400 mg Cap 2-20 le} capsule by ity of 21:25: mouth 3 [place] 05 (three) Medical times Branch daily. loratadine Yes 10mg Take 10 mg U nivers (CLARITIN) 2-20 by mouth ity o f 10 mg 21:25: daily. [place] tablet 05 Medical Branch aspirin Yes 81mg Take 81 mg Univ ers (KWAME 2-20 by mouth ity of CHEWABLE 21:25: daily. [place] ASPIRIN) 81 05 Medical mg chewable Branch tablet magnesium Yes 1{capsu Take 1 Uni vers oxide 400 2-20 le} capsule by ity of mg capsule 21:25: mouth [place] 05 daily. Medical Branch tamsulosin Yes tamsulosin U n[facility] 0.4 mg 24 2-20 0.4 mg ity of hr capsule 21:25: capsule [place] 05 Take 1 Medical capsule Branch every day by oral route as directed for 30 days. watch out for or stop if: headache, dizziness upon standing, or worsened nasal congestion . L.acid/L.ca Yes Take by [facility] sei/B.bif/B 2-20 mouth. ity of .joanna/FOS 21:25: [place] (PROBIOTIC 05 Medical BLEND ORAL) Branch ascorbic Yes 500mg Take 500 Univ ers acid, 2-20 mg by ity of vitamin C, 21:25: mouth. [place] (VITAMIN C) 05 Medical 500 mg Branch Cranberry Yes 1{capsu Take 1 Uni vers 400 mg Cap 2-20 le} capsule by ity of 21:25: mouth 3 [place] 05 (three) Medical times Branch daily. loratadine Yes 10mg Take 10 mg [facility] (CLARITIN) 2-20 by mouth ity o f 10 mg 21:25: daily. [place] tablet 05 Medical Branch aspirin Yes 81mg Take 81 mg Univ ers (KWAME 2-20 by mouth ity of CHEWABLE 21:25: daily. [place] ASPIRIN) 81 05 Medical mg chewable Branch tablet magnesium Yes 1{capsu Take 1 Uni vers oxide 400 2-20 le} capsule by ity of mg capsule 21:25: mouth [place] 05 daily. Medical Branch tamsulosin Yes tamsulosin U n[facility] 0.4 mg 24 2-20 0.4 mg ity of hr capsule 21:25: capsule [place] 05 Take 1 Medical capsule Branch every day by oral route as directed for 30 days. watch out for or stop if: headache, dizziness upon standing, or worsened nasal congestion . L.acid/L.ca Yes Take by [facility] sei/B.bif/B 2-20 mouth. ity of .joanna/FOS 21:25: [place] (PROBIOTIC 05 Medical BLEND ORAL) [place] ascorbic Yes 500mg Take 500 Univ ers acid, 2-20 mg by ity of vitamin C, 21:25: mouth. [place] (VITAMIN C) [address] [place] [address] 500 mg Branch Cranberry Yes 1{capsu Take 1 Uni vers 400 mg Cap 2-20 le} capsule by ity of 21:25: mouth 3 [place] 05 (three) Medical times Branch daily. loratadine Yes 10mg Take 10 mg U n[facility] (CLARITIN) 2-20 by mouth ity o f 10 mg 21:25: daily. [place] tablet 05 Medical Branch nystatin Yes Topical, [facility] (MYCOSTATIN 2-20 BID, First it y of ) cream 16:00: dose on [place] [facility] 12/14/20 at Branch 1000, Until Discontinu ed, Routine bisacodyL No 10mg 10 mg, [facility] (DULCOLAX) 2-20 02-20 Rectal, ity o f suppository 15:30: 14:39 ONCE, 1 [place] 10 mg 00 :00 dose, [facility] 12/14/20 at Branch 0930, Routine hydrALAZINE 2020-0 Yes [id number] 100mg Take 1 [facility] 100 mg 2-20 tablet by ity of tablet 00:00: mouth 2 (two) Medical times Branch daily. losartan 50 2020-0 Yes [id number] 50mg Take 1 [facility] mg tablet 2-20 tablet by ity o f 00:00: mouth 2 00 (two) Medical times Branch daily. amLODIPine 2020-0 Yes [id number] 5mg Take 1 U n[facility] 5 mg tablet 2-20 tablet by ity of 00:00: mouth 2 (two) Medical times Branch daily. apixaban 5 2020-0 Yes 1358 5mg Take 1 [facility] mg tablet 2-20 tablet by ity o f 00:00: mouth 2 (two) Medical times Branch daily. Indication s: atrial fibrillati on docusate 0 Yes [id number] 100mg Take 1 [facility] 100 mg 2-20 capsule by ity of capsule 00:00: mouth 2 [place] (two) Medical times Branch daily. lactobacill 0 Yes [id number] 1{tbl} Take 1 [facility] us 2-20 tablet by ity of acidophilus 00:00: mouth 2 [place] 25 million 00 (two) Medical cell -100 times Branch mg captab daily. nystatin Yes [id number] Apply to [facility] 100,000 2-20 area(s) 2 ity of unit/gram 00:00: (two) [place] cream 00 times Medical daily. Branch sennosides 0 Yes [id number] 8.6mg Take 1 [facility] 8.6 mg 2-20 tablet by ity of tablet 00:00: mouth 2 [place] 00 (two) Medical times Branch daily. QUEtiapine 2020-0 Yes [id number] 50mg Take 1 U nivers 50 mg 2-20 tablet by ity of tablet 00:00: mouth [place] 00 every Medical evening. Branch metoprolol 2020-0 Yes [id number] 100mg Take 1 [facility] succinate 2-20 tablet by ity o f XL 100 mg 00:00: mouth 2 [place] 24 hr 00 (two) Medical tablet times Branch daily. hydrALAZINE 2020-0 Yes [id number] 100mg Take 1 [facility] 100 mg 2-20 tablet by ity of tablet 00:00: mouth 2 (two) Medical times Branch daily. losartan 50 2020-0 Yes [id number] 50mg Take 1 [facility] mg tablet 2-20 tablet by ity o f 00:00: mouth 2 (two) Medical times Branch daily. amLODIPine 2020-0 Yes [id number] 5mg Take 1 U nivers 5 mg tablet 2-20 tablet by ity of 00:00: mouth 2 [place] 00 (two) Medical times Branch daily. apixaban 5 2020-0 Yes 1358 5mg Take 1 [facility] rs mg tablet 2-20 tablet by ity o f 00:00: mouth 2 (two) Medical times Branch daily. Indication s: atrial fibrillati on docusate Yes [id number] 100mg Take 1 [facility] 100 mg 2-20 capsule by ity of capsule 00:00: mouth 2 [place] (two) Medical times Branch daily. lactobacill 2020- Yes [id number] 1{tbl} Take 1 [facility] us 2-20 tablet by ity of acidophilus 00:00: mouth 2 [place] 25 million 00 (two) Medical cell -100 times Branch mg captab daily. nystatin Yes [id number] Apply to [facility] 100,000 2-20 area(s) 2 ity of unit/gram 00:00: (two) [place] cream 00 times Medical daily. Branch sennosides Yes [id number] 8.6mg Take 1 [facility] 8.6 mg 2-20 tablet by ity of tablet 00:00: mouth 2 [place] (two) Medical times Branch daily. QUEtiapine 0 Yes [id number] 50mg Take 1 U nivers 50 mg 2-20 tablet by ity of tablet 00:00: mouth [place] 00 every Medical evening. Branch metoprolol 0 Yes [id number] 100mg Take 1 [facility] succinate 2-20 tablet by ity o f XL 100 mg 00:00: mouth 2 [place] 24 hr 00 (two) Medical tablet times Branch daily. hydrALAZINE 2020-0 Yes [id number] 100mg Take 1 [facility] 100 mg 2-20 tablet by ity of tablet 00:00: mouth 2 [place] 00 (two) Medical times Branch daily. losartan 50 2020-0 Yes [id number] 50mg Take 1 [facility] mg tablet 2-20 tablet by ity o f 00:00: mouth 2 (two) Medical times Branch daily. amLODIPine 2020-0 Yes [id number] 5mg Take 1 U nivers 5 mg tablet 2-20 tablet by ity of 00:00: mouth 2 00 (two) Medical times Branch daily. apixaban 5 2020-0 Yes 1358 5mg Take 1 [facility] mg tablet 2-20 tablet by ity o f 00:00: mouth 2 (two) Medical times Branch daily. Indication s: atrial fibrillati on docusate 2020-0 Yes [id number] 100mg Take 1 [facility] 100 mg 2-20 capsule by ity of capsule 00:00: mouth 2 (two) Medical times Branch daily. lactobacill Yes [id number] 1{tbl} Take 1 [facility] us 2-20 tablet by ity of acidophilus 00:00: mouth 2 [place] 25 million 00 (two) Medical cell -100 times Branch mg captab daily. nystatin Yes [id number] Apply to [facility] 100,000 2-20 area(s) 2 ity of unit/gram 00:00: (two) [place] cream 00 times Medical daily. Branch sennosides Yes [id number] 8.6mg Take 1 [facility] 8.6 mg 2-20 tablet by ity of tablet 00:00: mouth 2 (two) Medical times Branch daily. QUEtiapine 2020-0 Yes [id number] 50mg Take 1 U nivers 50 mg 2-20 tablet by ity of tablet 00:00: mouth [place] 00 every Medical evening. Branch metoprolol 0 Yes [id number] 100mg Take 1 [facility] succinate 2-20 tablet by ity o f XL 100 mg 00:00: mouth 2 [place] 24 hr 00 (two) Medical tablet times Branch daily. hydrALAZINE 2020-0 Yes [id number] 100mg Take 1 [facility] 100 mg 2-20 tablet by ity of tablet 00:00: mouth 2 00 (two) Medical times Branch daily. losartan 50 2020-0 Yes [id number] 50mg Take 1 [facility] mg tablet 2-20 tablet by ity o f 00:00: mouth 2 [place] 00 (two) Medical times Branch daily. amLODIPine Yes [id number] 5mg Take 1 U nivers 5 mg tablet 2-20 tablet by ity of 00:00: mouth 2 (two) Medical times Branch daily. apixaban 5 2020-0 Yes 1358 5mg Take 1 [facility] mg tablet 2-20 tablet by ity o f 00:00: mouth 2 (two) Medical times Branch daily. Indication s: atrial fibrillati on docusate Yes [id number] 100mg Take 1 [facility] 100 mg 2-20 capsule by ity of capsule 00:00: mouth 2 (two) Medical times Branch daily. lactobacill 2020- Yes [id number] 1{tbl} Take 1 [facility] us 2-20 tablet by ity of acidophilus 00:00: mouth 2 [place] 25 million (two) Medical cell -100 times Branch mg captab daily. nystatin Yes [id number] Apply to [facility] 100,000 2-20 area(s) 2 ity of unit/gram 00:00: (two) [place] cream 00 times Medical daily. Branch sennosides Yes [id number] 8.6mg Take 1 [facility] 8.6 mg 2-20 tablet by ity of tablet 00:00: mouth 2 [place] (two) Medical times Branch daily. QUEtiapine Yes [id number] 50mg Take 1 U nivers 50 mg 2-20 tablet by ity of tablet 00:00: mouth 00 every Medical evening. Branch metoprolol Yes [id number] 100mg Take 1 [facility] succinate 2-20 tablet by ity o f XL 100 mg 00:00: mouth 2 [place] 24 hr 00 (two) Medical tablet times Branch daily. hydrALAZINE 2020-0 Yes [id number] 100mg Take 1 [facility] 100 mg 2-20 tablet by ity of tablet 00:00: mouth 2 [place] (two) Medical times Branch daily. losartan 50 2020-0 Yes [id number] 50mg Take 1 [facility] mg tablet 2-20 tablet by ity o f 00:00: mouth 2 [place] 00 (two) Medical times Branch daily. amLODIPine 2020-0 Yes [id number] 5mg Take 1 U nivers 5 mg tablet 2-20 tablet by ity of 00:00: mouth 2 00 (two) Medical times Branch daily. apixaban 5 0 Yes 1358 5mg Take 1 [facility] mg tablet 2-20 tablet by ity o f 00:00: mouth 2 (two) Medical times Branch daily. Indication s: atrial fibrillati on docusate Yes [id number] 100mg Take 1 [facility] 100 mg 2-20 capsule by ity of capsule 00:00: mouth 2 (two) Medical times Branch daily. lactobacill Yes [id number] 1{tbl} Take 1 [facility] us 2-20 tablet by ity of acidophilus 00:00: mouth 2 [place] 25 million 00 (two) Medical cell -100 times Branch mg captab daily. nystatin Yes [id number] Apply to [facility] 100,000 2-20 area(s) 2 ity of unit/gram 00:00: (two) [place] cream 00 times Medical daily. Branch sennosides Yes [id number] 8.6mg Take 1 [facility] 8.6 mg 2-20 tablet by ity of tablet 00:00: mouth (two) Medical times Branch daily. QUEtiapine Yes [id number] 50mg Take 1 U nivers 50 mg 2-20 tablet by ity of tablet 00:00: mouth 00 every Medical evening. Branch metoprolol Yes [id number] 100mg Take 1 [facility] succinate 2-20 tablet by ity o f XL 100 mg 00:00: mouth 2 [place] 24 hr 00 (two) Medical tablet times Branch daily. hydrALAZINE Yes [id number] 100mg Take 1 [facility] 100 mg 2-20 tablet by ity of tablet 00:00: mouth 00 (two) Medical times Branch daily. losartan 50 0 Yes [id number] 50mg Take 1 [facility] mg tablet 2-20 tablet by ity o f 00:00: mouth 2 (two) Medical times Branch daily. amLODIPine Yes [id number] 5mg Take 1 U nivers 5 mg tablet 2-20 tablet by ity of 00:00: mouth 2 [place] 00 (two) Medical times Branch daily. apixaban 5 2021-0 Yes 1358 5mg Take 1 [facility] rs mg tablet 2-20 tablet by ity o f 00:00: mouth 2 (two) Medical times Branch daily. Indication s: atrial fibrillati on docusate Yes [id number] 100mg Take 1 [facility] 100 mg 2-20 capsule by ity of capsule 00:00: mouth 2 00 (two) Medical times Branch daily. lactobacill 2020- Yes [id number] 1{tbl} Take 1 [facility] us 2-20 tablet by ity of acidophilus 00:00: mouth 2 [place] 25 million 00 (two) Medical cell -100 times Branch mg captab daily. nystatin Yes [id number] Apply to [facility] 100,000 2-20 area(s) 2 ity of unit/gram 00:00: (two) [place] cream 00 times Medical daily. Branch sennosides Yes [id number] 8.6mg Take 1 [facility] 8.6 mg 2-20 tablet by ity of tablet 00:00: mouth 2 (two) Medical times Branch daily. QUEtiapine Yes [id number] 50mg Take 1 U nivers 50 mg 2-20 tablet by ity of tablet 00:00: mouth [place] 00 every Medical evening. Branch metoprolol Yes [id number] 100mg Take 1 [facility] succinate 2-20 tablet by ity o f XL 100 mg 00:00: mouth 2 [place] 24 hr 00 (two) Medical tablet times Branch daily. hydrALAZINE 0 Yes [id number] 100mg Take 1 [facility] 100 mg 2-20 tablet by ity of tablet 00:00: mouth 2 00 (two) Medical times Branch daily. losartan 50 2020-0 Yes [id number] 50mg Take 1 [facility] mg tablet 2-20 tablet by ity o f 00:00: mouth 2 00 (two) Medical times Branch daily. amLODIPine 2020-0 Yes [id number] 5mg Take 1 U nivers 5 mg tablet 2-20 tablet by ity of 00:00: mouth 2 00 (two) Medical times Branch daily. apixaban 5 2020-0 Yes [id number] 5mg Take 1 [facility] rs mg tablet 2-20 tablet by ity o f 00:00: mouth 2 (two) Medical times Branch daily. Indication s: atrial fibrillati on docusate Yes [id number] 100mg Take 1 [facility] 100 mg 2-20 capsule by ity of capsule 00:00: mouth 2 [place] (two) Medical times Branch daily. lactobacill Yes [id number] 1{tbl} Take 1 [facility] us 2-20 tablet by ity of acidophilus 00:00: mouth 2 [place] 25 million 00 (two) Medical cell -100 times Branch mg captab daily. nystatin Yes [id number] Apply to [facility] 100,000 2-20 area(s) 2 ity of unit/gram 00:00: (two) [place] cream 00 times Medical daily. Branch sennosides Yes [id number] 8.6mg Take 1 [facility] 8.6 mg 2-20 tablet by ity of tablet 00:00: mouth [place] (two) Medical times Branch daily. QUEtiapine Yes [id number] 50mg Take 1 U nivers 50 mg 2-20 tablet by ity of tablet 00:00: mouth every Medical evening. Branch metoprolol Yes [id number] 100mg Take 1 [facility] succinate 2-20 tablet by ity o f XL 100 mg 00:00: mouth 2 [place] 24 hr 00 (two) Medical tablet times Branch daily. hydrALAZINE Yes [id number] 100mg Take 1 [facility] 100 mg 2-20 tablet by ity of tablet 00:00: mouth [place] (two) Medical times Branch daily. losartan 50 Yes [id number] 50mg Take 1 [facility] mg tablet 2-20 tablet by ity o f 00:00: mouth [place] (two) Medical times Branch daily. amLODIPine Yes [id number] 5mg Take 1 U nivers 5 mg tablet 2-20 tablet by ity of 00:00: mouth [place] (two) Medical times Branch daily. apixaban 5 2020- Yes [id number] 5mg Take 1 [facility] rs mg tablet 2-20 tablet by ity o f 00:00: mouth 2 [place] (two) Medical times Branch daily. Indication s: atrial fibrillati on docusate 2021-0 Yes [id number] 100mg Take 1 [facility] 100 mg 2-20 capsule by ity of capsule 00:00: mouth 2 (two) Medical times Branch daily. lactobacill 2020-0 Yes [id number] 1{tbl} Take 1 [facility] us 2-20 tablet by ity of acidophilus 00:00: mouth 2 [place] 25 million 00 (two) Medical cell -100 times Branch mg captab daily. nystatin 0 Yes [id number] Apply to [facility] 100,000 2-20 area(s) 2 ity of unit/gram 00:00: (two) [place] cream 00 times Medical daily. Branch sennosides Yes [id number] 8.6mg Take 1 [facility] 8.6 mg 2-20 tablet by ity of tablet 00:00: mouth (two) Medical times Branch daily. QUEtiapine 0 Yes [id number] 50mg Take 1 [facility] nivers 50 mg 2-20 tablet by ity of tablet 00:00: mouth 00 every Medical evening. Branch metoprolol 0 Yes [id number] 100mg Take 1 [facility] succinate 2-20 tablet by ity o f XL 100 mg 00:00: mouth 2 [place] 24 hr 00 (two) Medical tablet times Branch daily. hydrALAZINE 2020-0 Yes [id number] 100mg Take 1 [facility] 100 mg 2-20 tablet by ity of tablet 00:00: mouth (two) Medical times Branch daily. losartan 50 2020-0 Yes [id number] 50mg Take 1 [facility] mg tablet 2-20 tablet by ity o f 00:00: mouth (two) Medical times Branch daily. amLODIPine 2020-0 Yes [id number] 5mg Take 1 [facility] nivers 5 mg tablet 2-20 tablet by ity of 00:00: mouth 2 (two) Medical times Branch daily. apixaban 5 2020-0 Yes [id number] 5mg Take 1 [facility] mg tablet 2-20 tablet by ity o f 00:00: mouth 2 (two) Medical times Branch daily. Indication s: atrial fibrillati on docusate 2020-0 Yes [id number] 100mg Take 1 [facility] 100 mg 2-20 capsule by ity of capsule 00:00: mouth 2 (two) Medical times Branch daily. lactobacill Yes [id number] 1{tbl} Take 1 [facility] us 2-20 tablet by ity of acidophilus 00:00: mouth 2 [place] 25 million 00 (two) Medical cell -100 times Branch mg captab daily. nystatin Yes [id number] Apply to [facility] 100,000 2-20 area(s) 2 ity of unit/gram 00:00: (two) [place] cream 00 times Medical daily. Branch sennosides Yes [id number] 8.6mg Take 1 [facility] 8.6 mg 2-20 tablet by ity of tablet 00:00: mouth 2 (two) Medical times Branch daily. QUEtiapine Yes [id number] 50mg Take 1 [facility] n[facility] 50 mg 2-20 tablet by ity of tablet 00:00: mouth 00 every Medical evening. Branch metoprolol Yes [id number] 100mg Take 1 [facility] succinate 2-20 tablet by ity o f XL 100 mg 00:00: mouth 2 [place] 24 hr 00 (two) Medical tablet times Branch daily. hydrALAZINE Yes [id number] 100mg Take 1 [facility] 100 mg 2-20 tablet by ity of tablet 00:00: mouth (two) Medical times Branch daily. losartan 50 0 Yes [id number] 50mg Take 1 [facility] mg tablet 2-20 tablet by ity o f 00:00: mouth 2 (two) Medical times Branch daily. amLODIPine 0 Yes [id number] 5mg Take 1 [facility] n[facility] 5 mg tablet 2-20 tablet by ity of 00:00: mouth (two) Medical times Branch daily. apixaban 5 2020-0 Yes 1358 5mg Take 1 [facility] mg tablet 2-20 tablet by ity o f 00:00: mouth 2 (two) Medical times Branch daily. Indication s: atrial fibrillati on docusate 0 Yes [id number] 100mg Take 1 [facility] 100 mg 2-20 capsule by ity of capsule 00:00: mouth 2 (two) Medical times Branch daily. lactobacill Yes [id number] 1{tbl} Take 1 [facility] us 2-20 tablet by ity of acidophilus 00:00: mouth 2 [place] 25 million 00 (two) Medical cell -100 times Branch mg captab daily. nystatin Yes [id number] Apply to [facility] 100,000 2-20 area(s) 2 ity of unit/gram 00:00: (two) [place] cream 00 times Medical daily. Branch sennosides Yes [id number] 8.6mg Take 1 [facility] 8.6 mg 2-20 tablet by ity of tablet 00:00: mouth 2 (two) Medical times Branch daily. QUEtiapine Yes [id number] 50mg Take 1 [facility] nivers 50 mg 2-20 tablet by ity of tablet 00:00: mouth 00 every Medical evening. Branch metoprolol Yes [id number] 100mg Take 1 [facility] succinate 2-20 tablet by ity o f XL 100 mg 00:00: mouth 2 [place] 24 hr 00 (two) Medical tablet times Branch daily. hydrALAZINE Yes [id number] 100mg Take 1 [facility] 100 mg 2-20 tablet by ity of tablet 00:00: mouth (two) Medical times Branch daily. losartan 50 2020-0 Yes [id number] 50mg Take 1 [facility] mg tablet 2-20 tablet by ity o f 00:00: mouth 2 (two) Medical times Branch daily. amLODIPine Yes [id number] 5mg Take 1 U nivers 5 mg tablet 2-20 tablet by ity of 00:00: mouth (two) Medical times Branch daily. apixaban 5 2020-0 Yes 1358 5mg Take 1 [facility] rs mg tablet 2-20 tablet by ity o f 00:00: mouth 2 (two) Medical times Branch daily. Indication s: atrial fibrillati on docusate 0 Yes [id number] 100mg Take 1 [facility] 100 mg 2-20 capsule by ity of capsule 00:00: mouth 2 (two) Medical times Branch daily. lactobacill 2020-0 Yes [id number] 1{tbl} Take 1 [facility] us 2-20 tablet by ity of acidophilus 00:00: mouth 2 [place] 25 million 00 (two) Medical cell -100 times Branch mg captab daily. sennosides Yes [id number] 8.6mg Take 1 [facility] 8.6 mg 2-20 tablet by ity of tablet 00:00: mouth (two) Medical times Branch daily. QUEtiapine Yes [id number] 50mg Take 1 [facility] nivers 50 mg 2-20 tablet by ity of tablet 00:00: mouth every Medical evening. Branch hydrALAZINE 0 Yes [id number] 100mg Take 1 [facility] 100 mg 2-20 tablet by ity of tablet 00:00: mouth (two) Medical times Branch daily. losartan 50 2020-0 Yes [id number] 50mg Take 1 [facility] mg tablet 2-20 tablet by ity o f 00:00: mouth (two) Medical times Branch daily. amLODIPine Yes [id number] 5mg Take 1 U nivers 5 mg tablet 2-20 tablet by ity of 00:00: mouth (two) Medical times Branch daily. apixaban 5 0 Yes 1358 5mg Take 1 [facility] mg tablet 2-20 tablet by ity o f 00:00: mouth (two) Medical times Branch daily. Indication s: atrial fibrillati on docusate 0 Yes [id number] 100mg Take 1 [facility] 100 mg 2-20 capsule by ity of capsule 00:00: mouth (two) Medical times Branch daily. lactobacill 2020-0 Yes [id number] 1{tbl} Take 1 [facility] us 2-20 tablet by ity of acidophilus 00:00: mouth 2 [place] 25 million 00 (two) Medical cell -100 times Branch mg captab daily. sennosides Yes [id number] 8.6mg Take 1 [facility] 8.6 mg 2-20 tablet by ity of tablet 00:00: mouth (two) Medical times Branch daily. QUEtiapine 0 Yes [id number] 50mg Take 1 U nivers 50 mg 2-20 tablet by ity of tablet 00:00: mouth 00 every Medical evening. Branch nystatin 2020- 202- No [id number] Apply to [facility] 100,000 2-20 - area(s) 2 ity of unit/gram 00:00: 00:00 (two) [place] cream 00 :00 times Medical daily. Branch metoprolol 2020- No [id number] 100mg Take 1 [facility] succinate 12-14 tablet by ity of XL 100 mg 00:00: 00:00 mouth 2 [place] 24 hr 00 :00 (two) Medical tablet times Branch daily. NaCl 0.9% 2020- No [id number] 1g Infuse 1 g Univers (NS) PgBk 12-14 every 24 ity o f 50 mL with 00:00: 05:59 (twenty-fo [place] ertapenem 1 00 :00 ur) hours Med ical gram SolR 1 for 5 Branch g days. NaCl 0.9% 2020- No [id number] 1g Infuse 1 g Univers (NS) PgBk 12-14 every 24 ity o f 50 mL with 00:00: 05:59 (twenty-fo [place] ertapenem 1 00 :00 ur) hours Med ical gram SolR 1 for 5 Branch g days. NaCl 0.9% 2020- No [id number] 1g Infuse 1 g Univers (NS) PgBk 12-14 every 24 ity o f 50 mL with 00:00: 05:59 (twenty-fo [place] ertapenem 1 00 :00 ur) hours Med ical gram SolR 1 for 5 Branch g days. glycerin/mi 2020- No [id number] 225mL Insert 225 Univers neral oil, 12-14- mL into ity o f AGLO ENEMA, 00:00: 05:59 rectum [place] Enem 00 :00 once now Medical for 1 Branch dose. NaCl 0.9% Yes 10mL 10 mL, Univer s (NS) 2-19 Slow IV ity of injection 20:33: Push, PRN, [place] 10 mL 03 Starting Medical Fri Branch 12/13/20 at 1433, Until Discontinu ed, Routine, line maintenanc e ertapenem Yes 1000mg 1,000 mg, U nivers (INVANZ) 2-17 IV ity of 1,000 mg in 00:45: Piggyback, [place] NaCl 0.9% 00 Q24H ABX, Medic al (NS) 50 mL First dose [facility] MINI-BAG on [facility] 12/10/20 at 1845, Until Discontinu ed, 50 mL
R alejandra for Anti-Infec tive: Empiric Therapy for Suspected Infection< br>Empiric Therapy Site: Urine
D uration of therapy: 72 hours
R estricted use approved by: [employer] PROVIDER furosemide 2020-0 Yes 20mg 20 mg, IV Un b[facility] (LASIX) 2-16 Push, ity of injection 17:30: DAILY, [place] 20 mg 00 First dose Medical (after Branch last reorder) on [facility] 12/10/20 at 1130, Until Discontinu ed, Routine cloNIDine 2020-0 Yes .1mg 0.1 mg, Unive rs (CATAPRES) 2-16 Oral, BID, ity of tablet 0.1 17:30: First dose [place] mg 00 on [facility] 12/10/20 at Branch 1130, Until Discontinu ed, Routine KCL 2020-0 Yes 40meq 40 mEq, Univers (KLOR-CON 2-16 Oral, ity of M20) tablet 15:00: DAILY, [place] 40 mEq 00 First dose Medical on [facility] 12/10/20 at 0900, Until Discontinu ed, Routine ziprasidone 0 2020- No 10mg 10 mg, Uni vers (GEODON) 12-1016 Intramuscu ity of injection 08:15: 07:13 lar, ONCE, [place] 10 mg 00 :00 1 dose, Medical [facility] 12/10/20 at 0215, Routine haloperidol 2020-0 2020- No 5mg 5 mg, Univ ers lactate 16 -16 Intramuscu ity o f (HALDOL) 04:30: 03:49 lar, ONCE, [place] injection 5 00 :00 1 dose, Medic al mg [facility] 12/09/20 at 2230, Routine hydrALAZINE 2020-0 Yes 100mg 100 mg, Un brian (APRESOLINE 2-16 Oral, BID, it y of ) tablet 02:00: First dose [place] 100 mg 00 (after Medical last Branch modificati on) on Wed12/09/20 at 2000, Until Discontinu ed, Routine furosemide 2020-0 2020- No 20mg 20 mg, IV U nivers (LASIX) 16 02-16 Push, ity of injection 02:00: 01:40 ONCE, 1 [place] 20 mg 00 :00 dose, [facility] 12/09/20 at Branch 2000, Routine amLODIPine 2020-0 Yes 5mg 5 mg, Univer s (NORVASC) 2-16 Oral, BID, ity of tablet 5 mg 01:00: First dose [place] 00 (after Medical last Branch modificati on) on Wed12/09/20 at 1900, Until Discontinu ed, Routine magnesium 2020-0 Yes 400mg 400 mg, Univ ers oxide 2-16 Oral, BID, ity of (MAG-OX 00:45: First dose [place] 400) tablet 00 on [facility] 400 mg 12/09/20 at Branch 1845, Until Discontinu ed, Routine QUEtiapine 0 Yes 50mg 50 mg, Unive rs (SEROQUEL) 2-16 Oral, QPM, ity of tablet 50 00:45: First dose [place] mg 00 on [facility] 12/09/20 at Branch 1845, Until Discontinu ed, Routine metoprolol 0 Yes 100mg 100 mg, Uni vers succinate 2-15 Oral, BID, ity of XL (TOPROL 12:15: First dose [place] XL) tablet 00 (after Medical 100 mg last Branch modificati on) on Wed12/09/20 at 0615, Until Discontinu ed, Routine losartan 0 Yes 50mg 50 mg, Univers (COZAAR) 2-15 Oral, BID, ity o f tablet 50 12:15: First dose [place] mg 00 (after Medical last Branch modificati on) on Wed12/09/20 at 0615, Until Discontinu ed, Routine haloperidol 2020-2020- No 3mg 3 mg, Slow Univers lactate 15 02-15 IV Push, ity of (HALDOL) 07:15: 07:17 ONCE, 1 [place] injection 3 00 :00 dose, Mon Med ical mg 12/09/20 at Branch 0115, Routine metoprolol 2020-0 2020- No 5mg 5 mg, Slow Univers (LOPRESSOR) 12-09-15 IV Push, ity of injection 5 05:45: 05:56 ONCE, 1 [place] mg 00 :00 dose, [facility] 12/08/20 at Branch 2345, Routine proCHLORper 2020- No 10mg 10 mg, IV Univers azine 12-09 02-16 Piggyback, ity of (COMPAZINE) 04:05: 01:09 TIDPRN, [place] 10 mg in 18 :50 Starting Medical NaCl 0.9% [facility] (NS) 12/08/20 at piggyback 2205, Until 12/09/20 at 1909, 50 mL metoclopram 2020- No 10mg 10 mg, Uni vers dain HCl 12-09-15 Slow IV ity of (REGLAN) 03:15: 02:28 Push, [place] injection 00 :00 ONCE, 1 Medical 10 mg dose, [facility] 12/08/20 at 2115, [facility] sennosides Yes 8.6mg 8.6 mg, Uni vers (SENOKOT) 2-15 Oral, BID, ity of tablet 8.6 02:15: First dose [place] mg 00 on [facility] 12/08/20 at Branch 2014, Until Discontinu ed, Routine cyclobenzap Yes 10mg 10 mg, Univ ers rine 2-15 Oral, TID, ity of (FLEXERIL) 02:15: First dose [place] tablet 10 00 on [facility] mg 12/08/20 at Branch 2014, Until Discontinu ed, Routine apixaban Yes 5mg 5 mg, Univers (ELIQUIS) 2-15 Oral, BID, ity of tablet 5 mg 02:00: First dose [place] 00 on [facility] 12/08/20 at Branch 1999, Until Discontinu ed, Routine metoprolol No 50mg 50 mg, Univ ers succinate 2-15 02-15 Oral, BID, ity of XL (TOPROL 02:00: 12:02 First dose [place] XL) tablet 00 :32 (after Medical 50 mg last Branch modificati on) on [place] 12/08/20 at 2000, Until Discontinu ed, Routine hydrALAZINE No 50mg 50 mg, Uni vers (APRESOLINE 12-08 Oral, BID, i ty of ) tablet 50 20:00: 00:39 First dose [place] mg 00 :40 on [facility] 12/08/20 at Branch 1400, Until Discontinu ed, Routine losartan No 25mg 25 mg, Univer s (COZAAR) 12-08 Oral, BID, ity of tablet 25 20:00: 12:02 First dose [place] mg 00 :32 on [facility] 12/08/20 at Branch 1400, Until Discontinu ed, Routine cefTRIAXone No 1000mg 1,000 mg, Univers (ROCEPHIN) 12-08 IV ity of 1,000 mg in 17:00: 23:36 Piggyback, [place] NaCl 0.9% 00 :43 Q12H ABX, Medic al (NS) 50 mL First dose [facility] MINI-BAG (after last reorder) on [place] 12/08/20 at 1100, Until Discontinu ed, 50 mL
Reas on for Anti-Infec tive: Documented Infection< br>Documen chava Infection Site: Urine
D uration of Therapy: 7 days finasteride Yes 5mg 5 mg, Unive rs (PROSCAR) 12-08 Oral, ity of tablet 5 mg 15:00: DAILY, [place] 00 First dose Medical on [facility] 12/08/20 at 0900, Until Discontinu ed, Routine furosemide No 20mg 20 mg, Univ ers (LASIX) 12-08 Oral, ity of tablet 20 15:00: 17:29 DAILY, [place] mg 00 :58 First dose Medical on [facility] 12/08/20 at 0900, Until Discontinu ed, Routine enoxaparin No 40mg 40 mg, Univ ers (LOVENOX) 12-08 Subcutaneo ity of injection 15:00: 23:09 us, DAILY, [place] 40 mg 00 :53 First dose Medical on [facility] 12/08/20 at 0900, Until Discontinu ed, Routine levothyroxi Yes 100ug 100 mcg, U nivers ne 2-14 Oral, ity of (SYNTHROID) 12:00: QAM-0600, [place] tablet 100 00 First dose Med ical mcg on [place] Branch 12/08/20 at 0600, Until Discontinu ed, Routine NaCl 0.9% No 1000mL at 100 Uni vers (NS) IV 12-08 02-16 mL/hr, IV ity of infusion 07:45: 00:47 Infusion, [place] 1,000 mL 00 :00 CONTINUOUS Medic al , Starting Branch [place] 12/08/20 at 0145, Until 12/09/20 at 1847, Routine docusate Yes 100mg 100 mg, Unive rs (COLACE) 2-14 Oral, BID, ity o f capsule 100 06:45: First dose [place] mg 00 on [facility] 12/08/20 at Branch 0045, Until Discontinu ed, Routine lactobacill Yes 1{tbl} 1 tablet, Univers us 12-08 Oral, BID, ity of acidophilus 06:45: First dose [place] (ACIDOPHILL 00 on [place] [facility]ica l US) 25 12/08/20 at Branch million 0045, cell -100 Until mg captab 1 Discontinu tablet ed, Routine rivastigmin Yes 3mg 3 mg, Unive rs e tartrate 14 Oral, ity of (EXELON) 06:45: QAM+PM, [place] capsule 3 00 First dose Medi shilpa mg on [place] Branch 12/08/20 at 0045, Until Discontinu ed
Facu lty member approving Restricted medication : [facility] metoprolol No 25mg 25 mg, Univ ers succinate 12-0815 Oral, BID, ity of XL (TOPROL 06:45: 01:28 First dose [place] XL) tablet 00 :59 on [facility] 25 mg 12/08/20 at Branch 0045, Until Discontinu ed, Routine aspirin No 81mg 81 mg, Univers chewable 12-0815 Oral, QAM ity o f tablet 81 06:45: 19:10 WITH [place] mg 00 :41 BREAKFAST, Medical First dose Branch on 12/08/20 at 0045, Until Discontinu ed, Routine ondansetron Yes 4mg 4 mg, Slow Univers (ZOFRAN 2-14 IV Push, ity of (PF)) 06:40: Q6HPRN, [place] injection 4 05 Starting Medi shilpa mg [place] Branch 12/08/20 at 0040, Until Discontinu ed, Routine, Nausea and Vomiting (N/V) aspirin 0 Yes 81mg Take 81 mg Univ ers (KWAME 2-14 by mouth ity of CHEWABLE 06:32: daily. [place] ASPIRIN) 81 39 Medical mg chewable Branch tablet magnesium Yes 1{capsu Take 1 Uni vers oxide 400 2-14 le} capsule by ity of mg capsule 06:32: mouth [place] 39 daily. Medical Branch tamsulosin 0 Yes tamsulosin U nivers 0.4 mg 24 2-14 0.4 mg ity of hr capsule 06:32: capsule [place] 39 Take 1 Medical capsule Branch every day by oral route as directed for 30 days. watch out for or stop if: headache, dizziness upon standing, or worsened nasal congestion . L.acid/L.ca 0 Yes Take by [employer] sei/B.bif/B 2-14 mouth. ity of .joanna/FOS 06:32: [place] (PROBIOTIC 39 Medical BLEND ORAL) Branch ascorbic 0 Yes 500mg Take 500 Univ ers acid, 2-14 mg by ity of vitamin C, 06:32: mouth. [place] (VITAMIN C) 39 Medical 500 mg Branch aspirin Yes 81mg Take 81 mg Univ ers (KWAME 2-14 by mouth ity of CHEWABLE 06:32: daily. [place] ASPIRIN) 81 39 Medical mg chewable Branch tablet magnesium 0 Yes 1{capsu Take 1 Uni vers oxide 400 2-14 le} capsule by ity of mg capsule 06:32: mouth [place] 39 daily. Medical Branch tamsulosin 0 Yes tamsulosin U nivers 0.4 mg 24 2-14 0.4 mg ity of hr capsule 06:32: capsule [place] 39 Take 1 Medical capsule Branch every day by oral route as directed for 30 days. watch out for or stop if: headache, dizziness upon standing, or worsened nasal congestion . L.acid/L.ca 0 Yes Take by Un [facility] sei/B.bif/B 2-14 mouth. ity of .joanna/FOS 06:32: [place] (PROBIOTIC 39 Medical BLEND ORAL) Branch ascorbic Yes 500mg Take 500 Univ ers acid, 2-14 mg by ity of vitamin C, 06:32: mouth. [place] (VITAMIN C) 39 Medical 500 mg Branch cefTRIAXone 2020- No 1000mg 1,000 mg, Univers (ROCEPHIN) 12-08 IV ity of 1,000 mg in 03:45: 03:14 [place], [place] NaCl 0.9% 00 :00 ONCE, 1 Medical (NS) 50 mL dose, Sat Bran ch MINI-BAG 12/07/20 at 2145, 50 mL
Reas on for Anti-Infec tive: Documented Infection< br>Documen chava Infection Site: Urine
D uration of Therapy: 7 days cyclobenzap 2020- No 10mg 10 mg, Uni vers rine 12-08 Oral, ONCE ity of (FLEXERIL) 03:30: 02:24 NOW, 1 [place] tablet 10 00 :00 dose, Sat Medic al mg 12/07/20 at Branch 2130, [place] ibuprofen 2020- No 800mg 800 mg, Uni vers (IBU) 12-08 Oral, ity of tablet 800 00:15: 01:14 ONCE, 1 [place] mg 00 :00 dose, Sat Medical 12/07/20 at Branch 1815, BR[place] NaCl 0.9% 2020- No 1286mL at 999 Uni vers (NS) bolus 12-07-14 mL/hr, ity of infusion 23:30: 02:45 1,286 mL, [place] 1,286 mL 00 :00 IV Medical Infusion, Branch ONCE, 1 dose, 12/07/20 at 1730, [place] NaCl 0.9% 2020- No 1000mL at 999 Uni vers (NS) bolus 12-07-14 mL/hr, ity of infusion 23:00: 01:16 1,000 mL, [place] 1,000 mL 00 :00 IV Medical Infusion, Branch ONCE, 1 dose, 12/07/20 at 1700, [place] rivastigmin Yes [id number] 1{patch Apply 1 Univers e 9.5 mg/24 2-08 } Patch to ity of hr patch 00:00: skin [place] 00 daily. Medical Branch rivastigmin Yes [id number] 1{patch Apply 1 Univers e 9.5 mg/24 2-08 } Patch to ity of hr patch 00:00: skin [place] 00 daily. Medical Branch rivastigmin Yes [id number] 1{patch Apply 1 Univers e 9.5 mg/24 2-08 } Patch to ity of hr patch 00:00: skin [place] 00 daily. Medical Branch rivastigmin Yes [id number] 1{patch Apply 1 Univers e 9.5 mg/24 2-08 } Patch to ity of hr patch 00:00: skin [place] 00 daily. Medical Branch rivastigmin Yes [id number] 1{patch Apply 1 Univers e 9.5 mg/24 2-08 } Patch to ity of hr patch 00:00: skin [place] 00 daily. Medical Branch rivastigmin Yes [id number] 1{patch Apply 1 Univers e 9.5 mg/24 2-08 } Patch to ity of hr patch 00:00: skin [place] 00 daily. Medical Branch rivastigmin Yes [id number] 1{patch Apply 1 Univers e 9.5 mg/24 2-08 } Patch to ity of hr patch 00:00: skin [place] 00 daily. Medical Branch rivastigmin Yes [id number] 1{patch Apply 1 Univers e 9.5 mg/24 2-08 } Patch to ity of hr patch 00:00: skin [place] 00 daily. Medical Branch rivastigmin Yes [id number] 1{patch Apply 1 Univers e 9.5 mg/24 2-08 } Patch to ity of hr patch 00:00: skin [place] 00 daily. Medical Branch rivastigmin Yes [id number] 1{patch Apply 1 Univers e 9.5 mg/24 2-08 } Patch to ity of hr patch 00:00: skin [place] 00 daily. Medical Branch rivastigmin Yes [id number] 1{patch Apply 1 Univers e 9.5 mg/24 2-08 } Patch to ity of hr patch 00:00: skin [place] 00 daily. Medical Branch rivastigmin Yes [id number] 1{patch Apply 1 Univers e 9.5 mg/24 2-08 } Patch to ity of hr patch 00:00: skin [place] 00 daily. Medical Branch rivastigmin Yes [id number] 1{patch Apply 1 Univers e 9.5 mg/24 2-08 } Patch to ity of hr patch 00:00: [facility] 00 daily. Medical Branch rivastigmin Yes [id number] 1{patch Apply 1 Univers e 9.5 mg/24 2-08 } Patch to ity of hr patch 00:00: skin [place] 00 daily. Medical Branch aspirin Yes 81mg Take 81 mg Univ ers (KWAME 1-04 by mouth ity of CHEWABLE 17:50: daily. [place] ASPIRIN) 81 08 Medical mg chewable Branch tablet magnesium Yes 1{capsu Take 1 Uni vers oxide 400 1-04 le} capsule by ity of mg capsule 17:50: mouth [place] 08 daily. Medical Branch tamsulosin Yes tamsulosin U nivers 0.4 mg 24 1-04 0.4 mg ity of hr capsule 17:50: capsule [place] 08 Take 1 Medical capsule Branch every day by oral route as directed for 30 days. watch out for or stop if: headache, dizziness upon standing, or worsened nasal congestion . L.acid/L.ca Yes Take by [facility] sei/B.bif/B 1-04 mouth. ity of .joanna/FOS 17:50: [place] (PROBIOTIC 08 Medical BLEND ORAL) Branch ascorbic Yes 500mg Take 500 Univ ers acid, 1-04 mg by ity of vitamin C, 17:50: mouth. [place] (VITAMIN C) 08 Medical 500 mg Branch aspirin Yes 81mg Take 81 mg Univ ers (KWAME 1-04 by mouth ity of CHEWABLE 17:50: daily. [place] ASPIRIN) 81 08 Medical mg chewable Branch tablet magnesium Yes 1{capsu Take 1 Uni vers oxide 400 1-04 le} capsule by ity of mg capsule 17:50: mouth [place] 08 daily. Medical Branch tamsulosin Yes tamsulosin U nivers 0.4 mg 24 1-04 0.4 mg ity of hr capsule 17:50: capsule [place] 08 Take 1 Medical capsule Branch every day by oral route as directed for 30 days. watch out for or stop if: headache, dizziness upon standing, or worsened nasal congestion . L.acid/L.ca Yes Take by [facility] sei/B.bif/B 1-04 mouth. ity of .joanna/FOS 17:50: [place] (PROBIOTIC 08 Medical BLEND ORAL) Branch ascorbic Yes 500mg Take 500 Univ ers acid, 1-04 mg by ity of vitamin C, 17:50: mouth. [place] (VITAMIN C) 08 Medical 500 mg Branch aspirin Yes 81mg Take 81 mg Univ ers (KWAME 04 by mouth ity of CHEWABLE 17:50: daily. [place] ASPIRIN) 81 08 Medical mg chewable Branch tablet magnesium Yes 1{capsu Take 1 Uni vers oxide 400 10-28 le} capsule by ity of mg capsule 17:50: mouth [place] 08 daily. Medical Branch tamsulosin Yes tamsulosin U nivers 0.4 mg 24 1-04 0.4 mg ity of hr capsule 17:50: capsule [place] 08 Take 1 Medical capsule Branch every day by oral route as directed for 30 days. watch out for or stop if: headache, dizziness upon standing, or worsened nasal congestion . L.acid/L.ca Yes Take by [facility] sei/B.bif/B 1-04 mouth. ity of .joanna/FOS 17:50: [place] (PROBIOTIC 08 Medical BLEND ORAL) Branch ascorbic Yes 500mg Take 500 Univ ers acid, 1-04 mg by ity of vitamin C, 17:50: mouth. [place] (VITAMIN C) 08 Medical 500 mg Branch bupivacaine Yes PRN, Univer s (preserv 04 Starting ity of free) 17:20: 10/28/20 [place] (SENSORCAIN 00 at 1120, Medi shilpa E MPF) 0.25 Intra-op Bran ch % (2.5 mg/mL) 4 mL, lidocaine 1% (PF) (XYLOCAINE) 4 mL, triamcinolo ne acetonide (KENALOG) 80 mg lidocaine Yes PRN, Univers PF 2% -04 Starting ity of (XYLOCAINE- 17:19: 10/28/20 [place] MPF) 00 at 1119, Medical injection Until Branch Discontinu ed, Routine, Intra-op lidocaine 2020- Yes PRN, Univers 1% (PF) 1-04 Starting ity of (XYLOCAINE) 17:18: 10/28/20 [place] injection 00 at 1118, Medica l Until Branch Discontinu ed, Routine, Intra-op ascorbic 2019-10 Yes 500mg Take 500 Univ ers acid, 2-22 mg by ity of vitamin C, 16:22: mouth. [place] (VITAMIN C) 25 Medical 500 mg Branch ascorbic 2019-10 Yes 500mg Take 500 Univ ers acid, 2-22 mg by ity of vitamin C, 16:22: mouth. [place] (VITAMIN C) 25 Medical 500 mg Branch aspirin 2019-10 Yes 81mg Take 81 mg Univ ers (KWAME 2-22 by mouth ity of CHEWABLE 16:21: daily. [place] ASPIRIN) 81 34 Medical mg chewable Branch tablet magnesium 2019-10 Yes 1{capsu Take 1 Uni vers oxide 400 2-22 le} capsule by ity of mg capsule 16:21: mouth [place] 34 daily. Medical Branch tamsulosin 2019-10 Yes tamsulosin U nivers 0.4 mg 24 2-22 0.4 mg ity of hr capsule 16:21: capsule [place] 34 Take 1 Medical capsule Branch every day by oral route as directed for 30 days. watch out for or stop if: headache, dizziness upon standing, or worsened nasal congestion . L.acid/L.ca 2019-10 Yes Take by Un brian sei/B.bif/B 2-22 mouth. ity of .joanna/FOS 16:21: [place] (PROBIOTIC 34 Medical BLEND ORAL) Branch aspirin 2019-10 Yes 81mg Take 81 mg Univ ers (KWAME 2-22 by mouth ity of CHEWABLE 16:21: daily. [place] ASPIRIN) 81 34 Medical mg chewable Branch tablet magnesium 2019-10 Yes 1{capsu Take 1 Uni vers oxide 400 2-22 le} capsule by ity of mg capsule 16:21: mouth [place] 34 daily. Medical Branch tamsulosin 2019-10 Yes tamsulosin U nivers 0.4 mg 24 2-22 0.4 mg [place]y of hr capsule 16:21: capsule [place] 34 Take 1 Medical capsule Branch every day by oral route as directed for 30 days. watch out for or stop if: headache, dizziness upon standing, or worsened nasal congestion . L.acid/L.ca 2019- Yes Take by Un brian sei/B.bif/B 2-22 mouth. ity of .joanna/FOS 16:21: [place] (PROBIOTIC 34 Medical BLEND ORAL) Branch cyclobenzap 2020- Yes [id number] 10mg Take 1 [facility] rine 10 mg 2-01 tablet by ity of tablet 00:00: mouth 3 [place] 00 (three) Medical times Branch daily. cyclobenzap 2020- Yes [id number] 10mg Take 1 [facility] rine 10 mg 2-01 tablet by ity of tablet 00:00: mouth 3 [place] 00 (three) Medical times Branch daily. cyclobenzap 2019- Yes [id number] 10mg Take 1 [facility] rine 10 mg 2-01 tablet by ity of tablet 00:00: mouth 3 [place] 00 (three) Medical times Branch daily. cyclobenzap 2019- Yes [id number] 10mg Take 1 [facility] rine 10 mg 2-01 tablet by ity of tablet 00:00: mouth 3 [place] 00 (three) Medical times Branch daily. cyclobenzap 2020- Yes [id number] 10mg Take 1 [facility] rine 10 mg 2-01 tablet by ity of tablet 00:00: mouth 3 [place] 00 (three) Medical times Branch daily. cyclobenzap 2020- Yes [id number] 10mg Take 1 [facility] rine 10 mg 2-01 tablet by ity of tablet 00:00: mouth 3 [place] 00 (three) Medical times Branch daily. cyclobenzap 2019- Yes [id number] 10mg Take 1 [facility] rine 10 mg 2-01 tablet by ity of tablet 00:00: mouth 3 [place] 00 (three) Medical times Branch daily. cyclobenzap 2020- Yes [id number] 10mg Take 1 [facility] rine 10 mg 2-01 tablet by ity of tablet 00:00: mouth 3 [place] 00 (three) Medical times Branch daily. cyclobenzap 2020- Yes [id number] 10mg Take 1 [facility] rine 10 mg 2-01 tablet by ity of tablet 00:00: mouth 3 [place] 00 (three) Medical times Branch daily. cyclobenzap 2019- Yes [id number] 10mg Take 1 [facility] rine 10 mg 2-01 tablet by ity of tablet 00:00: mouth 3 00 (three) Medical times Branch daily. cyclobenzap 2019- Yes [id number] 10mg Take 1 [facility] rine 10 mg 2-01 tablet by ity of tablet 00:00: mouth 3 00 (three) Medical times Branch daily. cyclobenzap 2019- Yes [id number] 10mg Take 1 [facility] rine 10 mg 2-01 tablet by ity of tablet 00:00: mouth 3 00 (three) Medical times Branch daily. cyclobenzap 2019- Yes [id number] 10mg Take 1 [facility] rine 10 mg 2-01 tablet by ity of tablet 00:00: mouth 3 00 (three) Medical times Branch daily. cyclobenzap 2019- Yes [id number] 10mg Take 1 [facility] rine 10 mg 2-01 tablet by ity of tablet 00:00: mouth 3 00 (three) Medical times Branch daily. cyclobenzap 2019- Yes [id number] 10mg Take 1 [facility] rine 10 mg 2-01 tablet by ity of tablet 00:00: mouth 3 (three) Medical times Branch daily. cyclobenzap 2019-10 Yes [id number] 10mg Take 1 [facility] rine 10 mg 2-01 tablet by ity of tablet 00:00: mouth 3 00 (three) Medical times Branch daily. cyclobenzap 2019- Yes [id number] 10mg Take 1 [facility] rine 10 mg 2-01 tablet by ity of tablet 00:00: mouth 3 00 (three) Medical times Branch daily. cyclobenzap 2019- Yes [id number] 10mg Take 1 [facility] rine 10 mg 2-01 tablet by ity of tablet 00:00: mouth 3 00 (three) Medical times Branch daily. cyclobenzap 2019- Yes [id number] 10mg Take 1 [facility] rine 10 mg 2-01 tablet by ity of tablet 00:00: mouth 3 00 (three) Medical times Branch daily. cyclobenzap 2019-2020- No [id number] 10mg Take 1 [facility] rine 10 mg 2-01 06-13 tablet by ity of tablet 00:00: 00:00 mouth 3 [place] 00 :00 (three) Medical times Branch daily. LINZESS 290 2019- Yes TK 1 C PO U nivers mcg Cap 1-25 QD FOR 8 ity of 00:00: DAYS [place] [facility] LINZESS 290 2020- Yes TK 1 C PO U nivers mcg Cap 1-25 QD FOR 8 ity of 00:00: DAYS [place] [facility] LINZESS 290 2020- Yes TK 1 C PO U nivers mcg Cap 1-25 QD FOR 8 ity of 00:00: DAYS [place] [facility] LINZESS 290 2020- Yes TK 1 C PO U nivers mcg Cap 1-25 QD FOR 8 ity of 00:00: DAYS [place] [facility] LINZESS 290 2020- Yes TK 1 C PO U nivers mcg Cap 1-25 QD FOR 8 ity of 00:00: [place] [facility] LINZESS 290 2020- Yes TK 1 C PO U nivers mcg Cap 1-25 QD FOR 8 ity of 00:00: [place] [facility] LINZESS 290 2020- Yes TK 1 C PO U nivers mcg Cap 1-25 QD FOR 8 ity of 00:00: [place] [facility] LINZESS 290 2020- Yes TK 1 C PO U nivers mcg Cap 1-25 QD FOR 8 ity of 00:00: [place] [facility] LINZESS 290 2020- Yes TK 1 C PO U nivers mcg Cap 1-25 QD FOR 8 ity of 00:00: [place] [facility] LINZESS 290 2020- Yes TK 1 C PO U nivers mcg Cap 1-25 QD FOR 8 ity of 00:00: [place] [facility] LINZESS 290 2020- Yes TK 1 C PO U nivers mcg Cap 1-25 QD FOR 8 ity of 00:00: DAYS [place] [facility] LINZESS 290 2020- Yes TK 1 C PO U nivers mcg Cap 1-25 QD FOR 8 ity of 00:00: [place] [facility] LINZESS 290 2020- Yes TK 1 C PO U nivers mcg Cap 1-25 QD FOR 8 ity of 00:00: DAYS [place] [facility] LINZESS 290 2020- Yes TK 1 C PO U nivers mcg Cap 1-25 QD FOR 8 ity of 00:00: [place] [facility] LINZESS 290 2020- Yes TK 1 C PO U nivers mcg Cap 1-25 QD FOR 8 ity of 00:00: DAYS [place] 00 Medical Branch LINZESS 290 2019- Yes TK 1 C PO U nivers mcg Cap 1-25 QD FOR 8 ity of 00:00: DAYS Medical Branch LINZESS 290 2019- Yes TK 1 C PO U nivers mcg Cap 1-25 QD FOR 8 ity of 00:00: DAYS 00 Medical Branch LINZESS 290 2019-10 202- No TK 1 C PO [facility] mcg Cap 1-25 06-11 QD FOR 8 ity of 00:00: 00:00 DAYS [place] 00 :00 Medical Branch CYCLOBENZAP 2020- Yes [id number] TAKE 1 [facility] RINE 10 mg -06 TABLET BY ity of tablet 00:00: MOUTH [place] 00 THREE Medical TIMES Branch DAILY NEEDED CYCLOBENZAP 2019- 2020- No [id number] TAKE 1 [facility] RINE 10 mg 10-30 TABLET BY ity of tablet 00:00: 00:00 MOUTH [place] 00 :00 THREE Medical TIMES Branch DAILY NEEDED CYCLOBENZAP 2019- 2020- No [id number] TAKE 1 [facility] RINE 10 mg 10-30 TABLET BY ity of tablet 00:00: 00:00 MOUTH [place] 00 :00 THREE Medical TIMES Branch DAILY NEEDED rivastigmin 2020- Yes [id number] 1{patch Apply 1 [facility] e 4.6 mg/24 1-05 } Patch to ity of hr patch 00:00: skin [place] 00 daily. Medical Branch rivastigmin 2020- Yes [id number] 1{patch Apply 1 [facility] e 4.6 mg/24 1-05 } Patch to ity of hr patch 00:00: skin [place] 00 daily. Medical Branch rivastigmin 2020- Yes [id number] 1{patch Apply 1 [facility] e 4.6 mg/24 1-05 } Patch to ity of hr patch 00:00: skin [place] 00 daily. Medical Branch rivastigmin 2020- Yes [id number] 1{patch Apply 1 [facility] e 4.6 mg/24 1-05 } Patch to ity of hr patch 00:00: skin [place] 00 daily. Medical Branch rivastigmin 2020- Yes [id number] 1{patch Apply 1 [facility] e 4.6 mg/24 1-05 } Patch to ity of hr patch 00:00: skin [place] 00 daily. Medical Branch rivastigmin 2020- Yes [id number] 1{patch Apply 1 [facility] e 4.6 mg/24 1-05 } Patch to ity of hr patch 00:00: skin [place] 00 daily. Medical Branch rivastigmin 2019-10 Yes [id number] 1{patch Apply 1 [facility] e 4.6 mg/24 1-05 } Patch to ity of hr patch 00:00: skin [place] 00 daily. Medical Branch rivastigmin 2019-10 Yes [id number] 1{patch Apply 1 [facility] e 4.6 mg/24 1-05 } Patch to ity of hr patch 00:00: skin [place] 00 daily. Medical Branch rivastigmin 2019-10 Yes [id number] 1{patch Apply 1 [facility] e 4.6 mg/24 1-05 } Patch to ity of hr patch 00:00: skin [place] 00 daily. Medical Branch rivastigmin 2019-10- No [id number] 1{patch Apply 1 [facility] e 4.6 mg/24 1-05 02-08 } Patch to ity of hr patch 00:00: 00:00 skin [place] 00 :00 daily. Medical Branch rivastigmin 2019-10- No [id number] 1{patch Apply 1 [facility] e 4.6 mg/24 1-05 02-08 } Patch to ity of hr patch 00:00: 00:00 skin [place] 00 :00 daily. Medical Branch aspirin Yes 81mg Take 81 mg Univ ers (KWAME 07-15 by mouth ity of CHEWABLE 14:01: daily. [place] ASPIRIN) 81 17 Medical mg chewable Branch tablet magnesium 2019- Yes 1{capsu Take 1 Uni vers oxide 400 07-15 le} capsule by ity of mg capsule 14:01: mouth [place] 17 daily. Medical Branch tamsulosin Yes tamsulosin U nivers 0.4 mg 24 07-15 0.4 mg ity of hr capsule 14:01: capsule [place] 17 Take 1 Medical capsule Branch every day by oral route as directed for 30 days. watch out for or stop if: headache, dizziness upon standing, or worsened nasal congestion . L.acid/L.ca Yes Take by Un brian sei/B.bif/B 07-15 mouth. ity of .joanna/FOS 14:01: [place] (PROBIOTIC 17 Medical BLEND ORAL) Branch aspirin 0 Yes 81mg Take 81 mg Univ ers (KWAME 21 by mouth ity of CHEWABLE 14:01: daily. [place] ASPIRIN) 81 17 Medical mg chewable Branch tablet magnesium 2020-0 Yes 1{capsu Take 1 Uni vers oxide 400 9- le} capsule by ity of mg capsule 14:01: mouth [place] 17 daily. Medical Branch tamsulosin 2020-0 Yes tamsulosin U nivers 0.4 mg 24 9-21 0.4 mg ity of hr capsule 14:01: capsule [place] 17 Take 1 Medical capsule Branch every day by oral route as directed for 30 days. watch out for or stop if: headache, dizziness upon standing, or worsened nasal congestion . L.acid/L.ca 2020-0 Yes Take by Un brian sei/B.bif/B 07-15 mouth. ity of .joanna/FOS 14:01: [place] (PROBIOTIC 17 Medical BLEND ORAL) Branch aspirin 2020-0 Yes 81mg Take 81 mg Univ ers (KWAME 07-15 by mouth ity of CHEWABLE 14:01: daily. [place] ASPIRIN) 81 17 Medical mg chewable Branch tablet magnesium 2020-0 Yes 1{capsu Take 1 Uni vers oxide 400 - le} capsule by ity of mg capsule 14:01: mouth [place] 17 daily. Medical Branch tamsulosin 2020-0 Yes tamsulosin U nivers 0.4 mg 24 - 0.4 mg ity of hr capsule 14:01: capsule [place] 17 Take 1 Medical capsule Branch every day by oral route as directed for 30 days. watch out for or stop if: headache, dizziness upon standing, or worsened nasal congestion . L.acid/L.ca 2020-0 Yes Take by Un brian sei/B.bif/B 07-15 mouth. ity of .joanna/FOS 14:01: [place] (PROBIOTIC 17 Medical BLEND ORAL) Branch aspirin 2020-0 Yes 81mg Take 81 mg Univ ers (KWAME 21 by mouth ity of CHEWABLE 14:01: daily. [place] ASPIRIN) 81 17 Medical mg chewable Branch tablet magnesium 2020-0 Yes 1{capsu Take 1 Uni vers oxide 400 9-21 le} capsule by ity of mg capsule 14:01: mouth [place] 17 daily. Medical Branch tamsulosin 2020-0 Yes tamsulosin U nivers 0.4 mg 24 9-21 0.4 mg ity of hr capsule 14:01: capsule [place] 17 Take 1 Medical capsule Branch every day by oral route as directed for 30 days. watch out for or stop if: headache, dizziness upon standing, or worsened nasal congestion . L.acid/L.ca 2020-0 Yes Take by Un brian sei/B.bif/B 9-21 mouth. ity of .joanna/FOS 14:01: [place] (PROBIOTIC 17 Medical BLEND ORAL) Branch aspirin 2020-0 Yes 81mg Take 81 mg Univ ers (KWAME 21 by mouth ity of CHEWABLE 14:01: daily. [place] ASPIRIN) 81 17 Medical mg chewable Branch tablet magnesium 2020-0 Yes 1{capsu Take 1 Uni vers oxide 400 9- le} capsule by ity of mg capsule 14:01: mouth [place] 17 daily. Medical Branch tamsulosin 2020-0 Yes tamsulosin U nivers 0.4 mg 24 9-21 0.4 mg ity of hr capsule 14:01: capsule [place] 17 Take 1 Medical capsule Branch every day by oral route as directed for 30 days. watch out for or stop if: headache, dizziness upon standing, or worsened nasal congestion . L.acid/L.ca 2020-0 Yes Take by Un brian sei/B.bif/B 9- mouth. ity of .joanna/FOS 14:01: [place] (PROBIOTIC 17 Medical BLEND ORAL) Branch aspirin 2020-0 Yes 81mg Take 81 mg Univ ers (KWAME 21 by mouth ity of CHEWABLE 14:01: daily. [place] ASPIRIN) 81 17 Medical mg chewable Branch tablet magnesium 2020-0 Yes 1{capsu Take 1 Uni vers oxide 400 9- le} capsule by ity of mg capsule 14:01: mouth [place] 17 daily. Medical Branch tamsulosin 2020-0 Yes tamsulosin U nivers 0.4 mg 24 9-21 0.4 mg ity of hr capsule 14:01: capsule [place] 17 Take 1 Medical capsule Branch every day by oral route as directed for 30 days. watch out for or stop if: headache, dizziness upon standing, or worsened nasal congestion . L.acid/L.ca 2020-0 Yes Take by Un brian sei/B.bif/B 9-21 mouth. ity of .joanna/FOS 14:01: [place] (PROBIOTIC 17 Medical BLEND ORAL) Branch aspirin 2020-0 Yes 81mg Take 81 mg Univ ers (KWAME 07-15 by mouth ity of CHEWABLE 14:01: daily. [place] ASPIRIN) 81 17 Medical mg chewable [place] tablet magnesium 2020-0 Yes 1{capsu Take 1 Uni vers oxide 400 07-15 le} capsule by ity of mg capsule 14:01: mouth [place] 17 daily. Medical Branch tamsulosin 2020-0 Yes tamsulosin U nivers 0.4 mg 24 07-15 0.4 mg ity of hr capsule 14:01: capsule [place] 17 Take 1 Medical capsule Branch every day by oral route as directed for 30 days. watch out for or stop if: headache, dizziness upon standing, or worsened nasal congestion . L.acid/L.ca 2020-0 Yes Take by Un brian sei/B.bif/B 07-15 mouth. ity of .joanna/FOS 14:01: [place] (PROBIOTIC 17 Medical BLEND ORAL) [place] iohexoL 2020-0 Yes PRN, Univers (OMNIPAQUE 07-15 Starting ity o f 300-50 mL)) 13:13: [facility] injection 00 07/15/20 at [place] [id number], Branch Until Discontinu ed, Routine, Intra-op NaCl 0.9% 2020-0 Yes PRN, Univers (NS) 07-15 Starting ity of injection 12:53: [facility] 00 07/15/20 at [place] [address], [place] Until Discontinu ed, Routine, Intra-op triamcinolo 2020-0 Yes PRN, Univer s ne 07-15 Starting ity of acetonide 12:53: [facility] (KENALOG) 00 07/15/20 at [facility] injection [facility], [place] Until Discontinu ed, Routine, Intra-op lidocaine 2020-0 Yes PRN, Univers 1% (PF) 07-15 Starting ity of (XYLOCAINE) 12:53: [facility] injection 00 07/15/20 at [place] [id number], [place] Until Discontinu ed, Routine, Intra-op bupivacaine 2020-0 Yes PRN, Univer s (preserv 07-15 Starting ity of free) 12:52: [facility] (SENSORCAIN 00 07/15/20 at Md dicoh E MPF) [address] [place] [address] % (2.5 Until mg/mL) Discontinu injection ed, Routine, Intra-op lactated 2020-0 Yes 1000mL at 20 Univer s ringers IV 9-21 mL/hr, ity of infusion 12:15: 1,000 mL, [place] 1,000 mL 00 IV Medical Infusion, Branch CONTINUOUS , Starting 07/15/20 at 0715, Until Discontinu ed, Routine, DSU Pre-op aspirin 2020-0 Yes 81mg Take 81 mg Univ ers (KWAME 9-16 by mouth ity of CHEWABLE 13:59: daily. [place] ASPIRIN) 81 34 Medical mg chewable Branch tablet magnesium 2020-0 Yes 1{capsu Take 1 Uni vers oxide 400 9-16 le} capsule by ity of mg capsule 13:59: mouth [place] 34 daily. Medical Branch tamsulosin 2020-0 Yes tamsulosin U nivers 0.4 mg 24 9-16 0.4 mg ity of hr capsule 13:59: capsule [place] 34 Take 1 Medical capsule Branch every day by oral route as directed for 30 days. watch out for or stop if: headache, dizziness upon standing, or worsened nasal congestion . L.acid/L.ca 2020-0 Yes Take by Un brian sei/B.bif/B 9-16 mouth. ity of .joanna/FOS 13:59: [place] (PROBIOTIC 34 Medical BLEND ORAL) Branch aspirin 2020-0 Yes 81mg Take 81 mg Univ ers (KWAME 9-16 by mouth ity of CHEWABLE 13:59: daily. [place] ASPIRIN) 81 34 Medical mg chewable Branch tablet magnesium 2020-0 Yes 1{capsu Take 1 Uni vers oxide 400 9-16 le} capsule by ity of mg capsule 13:59: mouth [place] 34 daily. Medical Branch tamsulosin 2020-0 Yes tamsulosin U nivers 0.4 mg 24 9-16 0.4 mg ity of hr capsule 13:59: capsule [place] 34 Take 1 Medical capsule Branch every day by oral route as directed for 30 days. watch out for or stop if: headache, dizziness upon standing, or worsened nasal congestion . L.acid/L.ca 2020-0 Yes Take by Un brian sei/B.bif/B 9-16 mouth. ity of .joanna/FOS 13:59: [place] (PROBIOTIC 34 Medical BLEND ORAL) Branch lactated 2020-0 Yes 1000mL at 75 Univer s ringers IV 9-16 mL/hr, ity of infusion 13:45: 1,000 mL, [place] 1,000 mL 00 IV Medical Infusion, Branch CONTINUOUS , Starting Wed07/10/20 at 0845, Until Discontinu ed, Routine, PACU water for 2019-0 Yes PRN, Univers irrigation 07-10 Starting ity o f irrigation 13:05: Wed [place] solution 00 07/10/20 at Medic al 0805, Branch Until Discontinu ed, Routine, Intra-op simethicone 2020-0 Yes PRN, Univer s (GAS RELIEF 07-10 Starting ity of (SIMETHICON 13:04: Wed [place] E)) 40 00 07/10/20 at Medical mg/0.6 mL 0804, Branch drops Until Discontinu ed, Routine, Intra-op lactated 0 2020- No 1000mL at 20 Unive rs ringers IV 07-1016 mL/hr, ity of infusion 13:00: 12:54 1,000 mL, [place] 1,000 mL 00 :00 IV Medical Infusion, Branch ONCE, 1 dose, Wed07/10/20 at 0800, Routine, DSU Pre-op aspirin 2019-0 Yes 81mg Take 81 mg Univ ers (KWAME 07-08 by mouth ity of CHEWABLE 14:45: daily. [place] ASPIRIN) 81 11 Medical mg chewable Branch tablet magnesium 2019-0 Yes 1{capsu Take 1 Uni vers oxide 400 07-08 le} capsule by ity of mg capsule 14:45: mouth [place] 11 daily. Medical Branch tamsulosin 2020-0 Yes tamsulosin U nivers 0.4 mg 24 07-08 0.4 mg ity of hr capsule 14:45: capsule [place] 11 Take 1 Medical capsule Branch every day by oral route as directed for 30 days. watch out for or stop if: headache, dizziness upon standing, or worsened nasal congestion . L.acid/L.ca 2019-0 Yes Take by Un brian sei/B.bif/B - mouth. ity of .joanna/FOS 14:45: [place] (PROBIOTIC 11 Medical BLEND ORAL) Branch bupivacaine 2019-0 2020- No 5mL Unive rs (preserv 06-25 ity of free) 19:00: 17:56 [place] (SENSORCAIN 00 :00 Medical E MPF) 0.25 Branch % (2.5 mg/mL) injection 5 mL lidocaine 2020-0 2020- No 4mL Univers 1% (PF) 06-25 ity of (XYLOCAINE) 19:00: 17:57 [place] injection 4 00 :00 Medical mL Branch dexamethaso 2020-0 2020- No 10mg Unive rs ne 06-25 ity of (DECADRON) 19:00: 17:57 [place] injection 00 :00 Medical 10 mg Branch dexamethaso 2020-0 2020- No 10mg 10 mg, Uni vers ne 06-25 Intramuscu ity of (DECADRON) 19:00: 17:57 lar, ONCE, [place] injection 00 :00 1 dose, Medical 10 mg 06/25/20 Branch at 1400, Routine lidocaine 2020-0 2020- No 4mL 4 mL, Univer s 1% (PF) 06-25 Infiltrati ity o f (XYLOCAINE) 19:00: 17:57 on, ONCE, [place] injection 4 00 :00 1 dose, Medic al mL 06/25/20 Branch at 1400, Routine bupivacaine 2020-0 2020- No 5mL 5 mL, Univ ers (preserv 06-25 Infiltrati ity of free) 19:00: 17:56 on, ONCE, [place] (SENSORCAIN 00 :00 1 dose, Medic al E MPF) 0.25 06/25/20 Br anch % (2.5 at 1400, mg/mL) Routine injection 5 mL bupivacaine 2020-0 2020- No 5mL Unive rs (preserv 06-25 ity of free) 19:00: 17:56 [place] (SENSORCAIN 00 :00 Medical E MPF) 0.25 Branch % (2.5 mg/mL) injection 5 mL lidocaine 2020-0 2020- No 4mL Univers 1% (PF) 06-25 ity of (XYLOCAINE) 19:00: 17:57 [place] injection 4 00 :00 Medical mL Branch dexamethaso 2020-0 2020- No 10mg Unive rs ne 06-25 ity of (DECADRON) 19:00: 17:57 [place] injection 00 :00 Medical 10 mg Branch dexamethaso 2020-0 2020- No 10mg 10 mg, Uni vers ne 06-25 Intramuscu ity of (DECADRON) 19:00: 17:57 lar, ONCE, [place] injection 00 :00 1 dose, Medical 10 mg 06/25/20 Branch at 1400, Routine lidocaine 2020-0 2020- No 4mL 4 mL, Univer s 1% (PF) 06-25 Infiltrati ity o f (XYLOCAINE) 19:00: 17:57 on, ONCE, [place] injection 4 00 :00 1 dose, Medic al mL 06/25/20 Branch at 1400, Routine bupivacaine 2020-0 2020- No 5mL 5 mL, Univ ers (preserv 06-25 Infiltrati ity of free) 19:00: 17:56 on, ONCE, [place] (SENSORCAIN 00 :00 1 dose, Medic al E MPF) 0.25 06/25/20 Br anch % (2.5 at 1400, mg/mL) Routine injection 5 mL aspirin 2020-0 Yes 81mg Take 81 mg Univ ers (KWAME 06-25 by mouth ity of CHEWABLE 14:48: daily. [place] ASPIRIN) 81 19 Medical mg chewable Branch tablet magnesium 2020-0 Yes 1{capsu Take 1 Uni vers oxide 400 06-25 le} capsule by ity of mg capsule 14:48: mouth 19 daily. Medical Branch tamsulosin 2020-0 Yes tamsulosin U nivers 0.4 mg 24 06-25 0.4 mg ity of hr capsule 14:48: capsule [place] 19 Take 1 Medical capsule Branch every day by oral route as directed for 30 days. watch out for or stop if: headache, dizziness upon standing, or worsened nasal congestion . L.acid/L.ca 2020-0 Yes Take by Un brian sei/B.bif/B 06-25 mouth. ity of .joanna/FOS 14:48: [place] (PROBIOTIC 19 Medical BLEND ORAL) Branch aspirin 2020-0 Yes 81mg Take 81 mg Univ ers (KWAME 06-25 by mouth ity of CHEWABLE 14:48: daily. [place] ASPIRIN) 81 19 Medical mg chewable Branch tablet magnesium 2020-0 Yes 1{capsu Take 1 Uni vers oxide 400 06-25 le} capsule by ity of mg capsule 14:48: mouth [place] 19 daily. Medical Branch tamsulosin 2020-0 Yes tamsulosin U nivers 0.4 mg 24 06-25 0.4 mg ity of hr capsule 14:48: capsule [place] 19 Take 1 Medical capsule Branch every day by oral route as directed for 30 days. watch out for or stop if: headache, dizziness upon standing, or worsened nasal congestion . L.acid/L.ca 2020-0 Yes Take by Un brian sei/B.bif/B 06-25 mouth. ity of .joanna/FOS 14:48: [place] (PROBIOTIC 19 Medical BLEND ORAL) Branch aspirin 2020-0 Yes 81mg Take 81 mg Univ ers (KWAME 06-25 by mouth ity of CHEWABLE 14:48: daily. [place] ASPIRIN) 81 19 Medical mg chewable Branch tablet magnesium 2020-0 Yes 1{capsu Take 1 Uni vers oxide 400 9- le} capsule by ity of mg capsule 14:48: mouth [place] 19 daily. Medical Branch tamsulosin 2020-0 Yes tamsulosin U nivers 0.4 mg 24 06-25 0.4 mg ity of hr capsule 14:48: capsule [place] 19 Take 1 Medical capsule Branch every day by oral route as directed for 30 days. watch out for or stop if: headache, dizziness upon standing, or worsened nasal congestion . L.acid/L.ca 2020-0 Yes Take by Un brian sei/B.bif/B 06-25 mouth. ity of .joanna/FOS 14:48: [place] (PROBIOTIC 19 Medical BLEND ORAL) Branch aspirin 2020-0 Yes 81mg Take 81 mg Univ ers (KWAME 06-25 by mouth ity of CHEWABLE 14:48: daily. [place] ASPIRIN) 81 19 Medical mg chewable Branch tablet magnesium 2020-0 Yes 1{capsu Take 1 Uni vers oxide 400 9- le} capsule by ity of mg capsule 14:48: mouth [place] 19 daily. Medical Branch tamsulosin 2020-0 Yes tamsulosin U nivers 0.4 mg 24 06-25 0.4 mg ity of hr capsule 14:48: capsule [place] 19 Take 1 Medical capsule Branch every day by oral route as directed for 30 days. watch out for or stop if: headache, dizziness upon standing, or worsened nasal congestion . L.acid/L.ca 2020-0 Yes Take by Un brian sei/B.bif/B 06-25 mouth. ity of .joanna/FOS 14:48: [place] (PROBIOTIC 19 Medical BLEND ORAL) Branch aspirin 2020-0 Yes 81mg Take 81 mg Univ ers (KWAME 06-25 by mouth ity of CHEWABLE 14:48: daily. [place] ASPIRIN) 81 19 Medical mg chewable Branch tablet magnesium 2020-0 Yes 1{capsu Take 1 Uni vers oxide 400 06-25 le} capsule by ity of mg capsule 14:48: mouth [place] 19 daily. Medical Branch tamsulosin 2020-0 Yes tamsulosin U nivers 0.4 mg 24 06-25 0.4 mg ity of hr capsule 14:48: capsule [place] 19 Take 1 Medical capsule Branch every day by oral route as directed for 30 days. watch out for or stop if: headache, dizziness upon standing, or worsened nasal congestion . L.acid/L.ca 2020-0 Yes Take by Un brian sei/B.bif/B 06-25 mouth. ity of .joanna/FOS 14:48: [place] (PROBIOTIC 19 Medical BLEND ORAL) Branch cyclobenzap 2020-0 Yes [id number] 10mg Take 1 Univers rine 10 mg 9-01 tablet by ity of tablet 00:00: mouth 3 [place] [id number] (three) Medical times Branch daily as needed for Muscle Spasms. cyclobenzap 2020-0 Yes [id number] 10mg Take 1 Univers rine 10 mg 9-01 tablet by ity of tablet 00:00: mouth 3 [place] (three) Medical times Branch daily as needed for Muscle Spasms. cyclobenzap 2020-0 Yes [id number] 10mg Take 1 Univers rine 10 mg 9-01 tablet by ity of tablet 00:00: mouth 3 [place] (three) Medical times Branch daily as needed for Muscle Spasms. cyclobenzap 2020-0 Yes [id number] 10mg Take 1 [facility] rine 10 mg 9-01 tablet by ity of tablet 00:00: mouth 3 [place] (three) Medical times Branch daily as needed for Muscle Spasms. cyclobenzap 2020-0 Yes [id number] 10mg Take 1 Univers rine 10 mg 9-01 tablet by ity of tablet 00:00: mouth 3 [place] (three) Medical times Branch daily as needed for Muscle Spasms. cyclobenzap 2020-0 Yes [id number] 10mg Take 1 Univers rine 10 mg 9-01 tablet by ity of tablet 00:00: mouth 3 [place] 00 (three) Medical times Branch daily as needed for Muscle Spasms. cyclobenzap 2020-0 Yes [id number] 10mg Take 1 [facility] rine 10 mg 9-01 tablet by ity of tablet 00:00: mouth 3 [place] 00 (three) Medical times Branch daily as needed for Muscle Spasms. cyclobenzap 2020-0 Yes [id number] 10mg Take 1 [facility] rine 10 mg 9-01 tablet by ity of tablet 00:00: mouth 3 [place] 00 (three) Medical times Branch daily as needed for Muscle Spasms. cyclobenzap 2020-0 Yes [id number] 10mg Take 1 [facility] rine 10 mg 9-01 tablet by ity of tablet 00:00: mouth 3 [place] 00 (three) Medical times Branch daily as needed for Muscle Spasms. cyclobenzap 2020-0 Yes [id number] 10mg Take 1 [facility] rine 10 mg 9-01 tablet by ity of tablet 00:00: mouth 3 [place] 00 (three) Medical times Branch daily as needed for Muscle Spasms. cyclobenzap 2020-0 Yes [id number] 10mg Take 1 [facility] rine 10 mg 9-01 tablet by ity of tablet 00:00: mouth 3 [place] 00 (three) Medical times Branch daily as needed for Muscle Spasms. cyclobenzap 2020-0 2020- No [id number] 10mg Take 1 [facility] rine 10 mg 9-01 11-06 tablet by ity of tablet 00:00: 00:00 mouth 3 [place] 00 :00 (three) Medical times Branch daily as needed for Muscle Spasms. rivastigmin 2020-0 Yes [id number] 1{patch Apply 1 [facility] e 4.6 mg/24 7-31 } Patch to ity of hr patch 00:00: skin [place] 00 daily. Medical Branch rivastigmin 2020-0 Yes [id number] 1{patch Apply 1 [facility] e 4.6 mg/24 7-31 } Patch to ity of hr patch 00:00: skin [place] 00 daily. Medical Branch rivastigmin 2020-0 Yes [id number] 1{patch Apply 1 [facility] e 4.6 mg/24 7-31 } Patch to ity of hr patch 00:00: skin [place] 00 daily. Medical Branch rivastigmin 2020-0 Yes [id number] 1{patch Apply 1 [facility] e 4.6 mg/24 7-31 } Patch to ity of hr patch 00:00: skin [place] 00 daily. Medical Branch rivastigmin 2020-0 Yes [id number] 1{patch Apply 1 [facility] e 4.6 mg/24 7-31 } Patch to ity of hr patch 00:00: skin [place] 00 daily. Medical Branch rivastigmin 2020-0 Yes [id number] 1{patch Apply 1 [facility] e 4.6 mg/24 7-31 } Patch to ity of hr patch 00:00: skin [place] 00 daily. Medical Branch rivastigmin 2020-0 Yes [id number] 1{patch Apply 1 [facility] e 4.6 mg/24 7-31 } Patch to ity of hr patch 00:00: skin [place] 00 daily. Medical Branch rivastigmin 2020-0 Yes [id number] 1{patch Apply 1 [facility] e 4.6 mg/24 7-31 } Patch to ity of hr patch 00:00: skin [place] 00 daily. Medical Branch rivastigmin 2020-0 Yes [id number] 1{patch Apply 1 [facility] e 4.6 mg/24 7-31 } Patch to ity of hr patch 00:00: skin [place] 00 daily. Medical Branch rivastigmin 2020-0 Yes [id number] 1{patch Apply 1 [facility] e 4.6 mg/24 7-31 } Patch to ity of hr patch 00:00: skin [place] 00 daily. Medical Branch rivastigmin 2020-0 Yes [id number] 1{patch Apply 1 [facility] e 4.6 mg/24 7-31 } Patch to ity of hr patch 00:00: skin [place] 00 daily. Medical Branch rivastigmin 2020-0 Yes [id number] 1{patch Apply 1 [facility] e 4.6 mg/24 7-31 } Patch to ity of hr patch 00:00: skin [place] 00 daily. Medical Branch rivastigmin 2020-0 Yes [id number] 1{patch Apply 1 [facility] e 4.6 mg/24 7-31 } Patch to ity of hr patch 00:00: skin [place] 00 daily. Medical Branch rivastigmin 2020-0 Yes [id number] 1{patch Apply 1 [facility] e 4.6 mg/24 7-31 } Patch to ity of hr patch 00:00: skin [place] 00 daily. Medical Branch rivastigmin 2020-0 Yes [id number] 1{patch Apply 1 [facility] e 4.6 mg/24 7-31 } Patch to ity of hr patch 00:00: [facility] 00 daily. Medical Branch rivastigmin 2020-0 Yes [id number] 1{patch Apply 1 [facility] e 4.6 mg/24 05-24 } Patch to ity of hr patch 00:00: [facility] 00 daily. Medical Branch rivastigmin 2020-0 Yes [id number] 1{patch Apply 1 [facility] e 4.6 mg/24 05-24 } Patch to ity of hr patch 00:00: [facility] 00 daily. Medical Branch rivastigmin 2020-0 Yes [id number] 1{patch Apply 1 [facility] e 4.6 mg/24 05-24 } Patch to ity of hr patch 00:00: [facility] 00 daily. Medical Branch rivastigmin 2020-0 2020- No [id number] 1{patch Apply 1 [facility] e 4.6 mg/24 05-24 } Patch to ity of hr patch 00:00: 00:00 skin [place] 00 :00 daily. Medical Branch niacin ER 2019-0 Yes [facility] 1,000 mg 7-28 ity of tablet 00:00: [place] [facility] atenoloL 25 2019-0 Yes Univer s mg tablet 7-28 ity of 00:00: [place] 00 Medical Branch niacin ER 2019-0 Yes [facility] 1,000 mg 7-28 ity of tablet 00:00: [place] [facility] atenoloL 25 2019-0 Yes Univer s mg tablet 7-28 ity of 00:00: [place] 00 Medical Branch niacin ER 2020-0 Yes [facility] 1,000 mg 7-28 ity of tablet 00:00: [place] [facility] atenoloL 25 2019-0 Yes Univer s mg tablet 7-28 ity of 00:00: [place] 00 Medical Branch niacin ER 2020-0 Yes [facility] 1,000 mg 7-28 ity of tablet 00:00: [place] [facility] atenoloL 25 2019-0 Yes Univer s mg tablet 7-28 ity of 00:00: [place] 00 Medical Branch niacin ER 2020-0 Yes [facility] 1,000 mg 7-28 ity of tablet 00:00: [place] 00 Medical Branch atenoloL 25 2019-0 Yes Univer s mg tablet 7-28 ity of 00:00: [place] 00 Medical Branch niacin ER 2020-0 Yes [facility] 1,000 mg 7-28 ity of tablet 00:00: [place] [address] Medical Branch atenoloL 25 2020-0 Yes Univer s mg tablet 7-28 ity of 00:00: [place] [address] Medical Branch niacin ER 2020-0 Yes [facility] 1,000 mg 7-28 ity of tablet 00:00: [place] [address] Medical Branch atenoloL 25 2020-0 Yes Univer s mg tablet 7-28 ity of 00:00: [place] [address] Medical Branch niacin ER 2020-0 Yes [facility] 1,000 mg 7-28 ity of tablet 00:00: [place] [address] Medical Branch atenoloL 25 2020-0 Yes Univer s mg tablet 7-28 ity of 00:00: [place] [address] Medical Branch niacin ER 2020-0 Yes [facility] 1,000 mg 7-28 ity of tablet 00:00: [place] [address] Medical Branch atenoloL 25 2020-0 Yes Univer s mg tablet 7-28 ity of 00:00: [place] [address] Medical Branch niacin ER 2020-0 Yes [facility] 1,000 mg 7-28 ity of tablet 00:00: [place] [address] Medical Branch atenoloL 25 2020-0 Yes Univer s mg tablet 7-28 ity of 00:00: [place] [address] Medical Branch niacin ER 2020-0 Yes [facility] 1,000 mg 7-28 ity of tablet 00:00: [place] [address] Medical Branch atenoloL 25 2020-0 Yes Univer s mg tablet 7-28 ity of 00:00: [place] [address] Medical Branch niacin ER 2020-0 Yes [facility] 1,000 mg 7-28 ity of tablet 00:00: [place] [address] Medical Branch atenoloL 25 2020-0 Yes Univer s mg tablet 7-28 ity of 00:00: [place] [address] Medical Branch niacin ER 2020-0 Yes [facility] 1,000 mg 7-28 ity of tablet 00:00: [place] [address] Medical Branch atenoloL 25 2020-0 Yes Univer s mg tablet 7-28 ity of 00:00: [place] [address] Medical Branch niacin ER 2020-0 Yes [facility] 1,000 mg 7-28 ity of tablet 00:00: [place] [address] Medical Branch atenoloL 25 2020-0 Yes Univer s mg tablet 7-28 ity of 00:00: [place] [address] Medical Branch niacin ER 2020-0 Yes [facility] 1,000 mg 7-28 ity of tablet 00:00: [place] [facility] atenoloL 25 2019-0 Yes 12.5mg 12.5 mg. Univers mg tablet 7-28 ity of 00:00: [place] [facility] niacin ER 2020-0 Yes Univers 1,000 mg 7-28 ity of tablet 00:00: [address] atenoloL 25 2019-0 Yes 12.5mg 12.5 mg. Univers mg tablet 7- ity of 00:00: [address] niacin ER 2020-0 Yes [facility] 1,000 mg 7-28 ity of tablet 00:00: [address] niacin ER 2020-0 Yes Univers 1,000 mg 7-28 ity of tablet 00:00: [address] niacin ER 2020-0 Yes Univers 1,000 mg 7-28 ity of tablet 00:00: [address] niacin ER 2020-0 Yes Univers 1,000 mg 7-28 ity of tablet 00:00: [address] niacin ER 2020-0 Yes Univers 1,000 mg 7-28 ity of tablet 00:00: [address] niacin ER 2020-0 Yes Univers 1,000 mg 7-28 ity of tablet 00:00: [address] niacin ER 2020-0 Yes [facility] 1,000 mg 7-28 ity of tablet 00:00: [address] niacin ER 2020-0 Yes [facility] 1,000 mg 7-28 ity of tablet 00:00: [address] niacin ER 2020-0 Yes [facility] 1,000 mg 7-28 ity of tablet 00:00: [address] niacin ER 2020-0 Yes [facility] 1,000 mg 7-28 ity of tablet 00:00: [address] niacin ER 2020-0 Yes [facility] 1,000 mg 7-28 ity of tablet 00:00: [address] atenoloL 25 2019-0 Yes Univer s mg tablet - ity of 00:00: [place] [facility] niacin ER 2020-0 2020- No [facility] 1,000 mg 7-28 06-11 ity of tablet 00:00: 00:00 [place] 00 :00 [facility] atenoloL 25 2019-0 2020- No 12.5mg 12.5 mg. Univers mg tablet -28 02-20 ity of 00:00: 00:00 [place] 00 :00 Medical Branch aspirin 2020-0 Yes 81mg Take 81 mg Univ ers (KWAME 6-29 by mouth ity of CHEWABLE 14:54: daily. [place] ASPIRIN) 81 53 Medical mg chewable Branch tablet magnesium 2020-0 Yes 1{capsu Take 1 Uni vers oxide 400 6-29 le} capsule by ity of mg capsule 14:54: mouth [place] 53 daily. Medical Branch tamsulosin 2020-0 Yes tamsulosin U nivers 0.4 mg 24 6-29 0.4 mg ity of hr capsule 14:54: capsule [place] 53 Take 1 Medical capsule Branch every day by oral route as directed for 30 days. watch out for or stop if: headache, dizziness upon standing, or worsened nasal congestion . L.acid/L.ca 2020-0 Yes Take by Un brian sei/B.bif/B 6-29 mouth. ity of .joanna/FOS 14:54: [place] (PROBIOTIC 53 Medical BLEND ORAL) Branch aspirin 2020-0 Yes 81mg Take 81 mg Univ ers (KWAME 6-29 by mouth ity of CHEWABLE 14:54: daily. [place] ASPIRIN) 81 53 Medical mg chewable Branch tablet magnesium 2020-0 Yes 1{capsu Take 1 Uni vers oxide 400 6-29 le} capsule by ity of mg capsule 14:54: mouth [place] 53 daily. Medical Branch tamsulosin 2020-0 Yes tamsulosin U nivers 0.4 mg 24 6-29 0.4 mg ity of hr capsule 14:54: capsule [place] 53 Take 1 Medical capsule Branch every day by oral route as directed for 30 days. watch out for or stop if: headache, dizziness upon standing, or worsened nasal congestion . L.acid/L.ca 2020-0 Yes Take by Un brian sei/B.bif/B 6-29 mouth. ity of .joanna/FOS 14:54: [place] (PROBIOTIC 53 Medical BLEND ORAL) Branch aspirin 2020-0 Yes 81mg Take 81 mg Univ ers (KWAME 6-29 by mouth ity of CHEWABLE 14:54: daily. [place] ASPIRIN) 81 53 Medical mg chewable Branch tablet magnesium 2020-0 Yes 1{capsu Take 1 Uni vers oxide 400 6-29 le} capsule by ity of mg capsule 14:54: mouth [place] 53 daily. Medical Branch tamsulosin 2020-0 Yes tamsulosin U nivers 0.4 mg 24 6-29 0.4 mg ity of hr capsule 14:54: capsule [place] 53 Take 1 Medical capsule Branch every day by oral route as directed for 30 days. watch out for or stop if: headache, dizziness upon standing, or worsened nasal congestion . L.acid/L.ca 2020-0 Yes Take by Un brian sei/B.bif/B 6-29 mouth. ity of .joanna/FOS 14:54: [place] (PROBIOTIC 53 Medical BLEND ORAL) Branch aspirin 2020-0 Yes 81mg Take 81 mg Univ ers (KWAME 6-29 by mouth ity of CHEWABLE 14:54: daily. [place] ASPIRIN) 81 53 Medical mg chewable Branch tablet magnesium 2020-0 Yes 1{capsu Take 1 Uni vers oxide 400 6-29 le} capsule by ity of mg capsule 14:54: mouth [place] 53 daily. Medical Branch tamsulosin 2020-0 Yes tamsulosin U nivers 0.4 mg 24 6-29 0.4 mg ity of hr capsule 14:54: capsule [place] 53 Take 1 Medical capsule Branch every day by oral route as directed for 30 days. watch out for or stop if: headache, dizziness upon standing, or worsened nasal congestion . L.acid/L.ca 2020-0 Yes Take by Un brain sei/B.bif/B 6-29 mouth. ity of .joanna/FOS 14:54: [place] (PROBIOTIC 53 Medical BLEND ORAL) Branch aspirin 2020-0 Yes 81mg Take 81 mg Univ ers (KWAME 6-29 by mouth ity of CHEWABLE 14:54: daily. [place] ASPIRIN) 81 53 Medical mg chewable Branch tablet magnesium 2020-0 Yes 1{capsu Take 1 Uni vers oxide 400 6-29 le} capsule by ity of mg capsule 14:54: mouth [place] 53 daily. Medical Branch tamsulosin 2020-0 Yes tamsulosin U nivers 0.4 mg 24 6-29 0.4 mg ity of hr capsule 14:54: capsule [place] 53 Take 1 Medical capsule Branch every day by oral route as directed for 30 days. watch out for or stop if: headache, dizziness upon standing, or worsened nasal congestion . L.acid/L.ca 2020-0 Yes Take by Un brian sei/B.bif/B 6-29 mouth. ity of .joanna/FOS 14:54: [place] (PROBIOTIC 53 Medical BLEND ORAL) Branch aspirin 2020-0 Yes 81mg Take 81 mg Univ ers (KWAME 6-29 by mouth ity of CHEWABLE 14:54: daily. [place] ASPIRIN) 81 53 Medical mg chewable Branch tablet magnesium 2020-0 Yes 1{capsu Take 1 Uni vers oxide 400 6-29 le} capsule by ity of mg capsule 14:54: mouth [place] 53 daily. Medical Branch tamsulosin 2020-0 Yes tamsulosin U nivers 0.4 mg 24 6-29 0.4 mg ity of hr capsule 14:54: capsule [place] 53 Take 1 Medical capsule Branch every day by oral route as directed for 30 days. watch out for or stop if: headache, dizziness upon standing, or worsened nasal congestion . L.acid/L.ca 2020-0 Yes Take by Un brian sei/B.bif/B 6-29 mouth. ity of .joanna/FOS 14:54: [place] (PROBIOTIC 53 Medical BLEND ORAL) Branch aspirin 2020-0 Yes 81mg Take 81 mg Univ ers (KWAME 6-29 by mouth ity of CHEWABLE 14:54: daily. [place] ASPIRIN) 81 53 Medical mg chewable Branch tablet magnesium 2020-0 Yes 1{capsu Take 1 Uni vers oxide 400 6-29 le} capsule by ity of mg capsule 14:54: mouth [place] 53 daily. Medical Branch tamsulosin 2020-0 Yes tamsulosin U nivers 0.4 mg 24 6-29 0.4 mg ity of hr capsule 14:54: capsule [place] 53 Take 1 Medical capsule Branch every day by oral route as directed for 30 days. watch out for or stop if: headache, dizziness upon standing, or worsened nasal congestion . L.acid/L.ca 2020-0 Yes Take by Un brian sei/B.bif/B 6-29 mouth. ity of .joanna/FOS 14:54: [place] (PROBIOTIC 53 Medical BLEND ORAL) Branch aspirin 2020-0 Yes 81mg Take 81 mg Univ ers (KWAME 6-29 by mouth ity of CHEWABLE 14:54: daily. [place] ASPIRIN) 81 53 Medical mg chewable Branch tablet magnesium 2020-0 Yes 1{capsu Take 1 Uni vers oxide 400 6-29 le} capsule by ity of mg capsule 14:54: mouth [place] 53 daily. Medical Branch tamsulosin 2020-0 Yes tamsulosin U nivers 0.4 mg 24 04-22 0.4 mg ity of hr capsule 14:54: capsule [place] 53 Take 1 Medical capsule [place] every day by oral route as directed for 30 days. watch out for or stop if: headache, dizziness upon standing, or worsened nasal congestion . L.acid/L.ca 2020-0 Yes Take by Un brian sei/B.bif/B 04-22 mouth. ity of .joanna/FOS 14:54: [place] (PROBIOTIC 53 Medical BLEND ORAL) [place] lactated 2020-0 Yes 500mL at 75 [facility] ringers IV - mL/hr, 500 ity of infusion 14:30: mL, IV [place] 500 mL 00 Infusion, Medical CONTINUOUS Branch , Starting 04/22/20 at 0930, Until Discontinu ed, Routine, PACU iohexol 2020-0 Yes PRN, Univers (OMNIPAQUE 04-22 Starting ity o f 300-50 mL)) 14:00: [facility] injection 04/22/20 at [facility] 0900, [place] Until Discontinu ed, Routine, Intra-op lidocaine 2020-0 Yes PRN, Univers 1% (PF) 04-22 Starting ity of (XYLOCAINE) 14:00: [facility] injection 04/22/20 at [facility] 0900[facility] Until Discontinu ed, Routine, Intra-op NaCl 0.9% 2020-0 Yes PRN, Univers (NS) 04-22 Starting ity of injection 14:00: [facility] 04/22/20 at [facility] 0900, [place] Until Discontinu ed, Routine, Intra-op bupivacaine 2020-0 Yes PRN, Univer s (preserv 04-22 Starting ity of free) 13:59: [facility] (SENSORCAIN 04/22/20 at Md dicoh [facility]) 0.25 0859, Branch % (2.5 Intra-op mg/mL) 2 mL, lidocaine 1% (PF) (XYLOCAINE) 2 mL, triamcinolo ne acetonide (KENALOG) 80 mg lactated 2020-0 2020- No 1000mL at 20 Unive rs ringers IV 04-22 06-29 mL/hr, ity of infusion 13:00: 13:19 1,000 mL, [place] 1,000 mL 00 :00 IV Medical Infusion, [place] ONCE, 1 dose, 04/22/20 at 0800, Routine, DSU Pre-op L.acid/L.ca 2020-0 Yes Take by Un brian sei/B.bif/B 04-22 mouth. ity of .joanna/FOS 12:56: [place] (PROBIOTIC 51 Medical BLEND ORAL) Branch L.acid/L.ca 2020-0 Yes Take by Un brian sei/B.bif/B 04-16 mouth. ity of .joanna/FOS 19:35: [place] (PROBIOTIC 47 Medical BLEND ORAL) Branch L.acid/L.ca 2020-0 Yes Take by Un brian sei/B.bif/B 04-16 mouth. ity of .joanna/FOS 19:35: [place] (PROBIOTIC 47 Medical BLEND ORAL) Branch L.acid/L.ca 2020-0 Yes Take by Un brian sei/B.bif/B 04-16 mouth. ity of .joanna/FOS 19:35: [place] (PROBIOTIC 47 Medical BLEND ORAL) Branch L.acid/L.ca 2020-0 Yes Take by Un brian sei/B.bif/B 04-16 mouth. ity of .joanna/FOS 19:35: [place] (PROBIOTIC 47 Medical BLEND ORAL) Branch L.acid/L.ca 2020-0 Yes Take by Un brian sei/B.bif/B 04-16 mouth. ity of .joanna/FOS 19:35: [place] (PROBIOTIC 47 Medical BLEND ORAL) Branch nisoldipine 2020-0 2020- No 17mg Take 17 mg [facility] 17 mg 24 hr 04-16 by mouth ity of tablet 19:35: 00:00 daily. [place] 26 :00 Medical Branch aspirin 2020-0 Yes 81mg Take 81 mg Univ ers (KWAME 04-16 by mouth ity of CHEWABLE 19:33: daily. [place] ASPIRIN) 81 49 Medical mg chewable Branch tablet magnesium 2020-0 Yes 1{capsu Take 1 Uni vers oxide 400 04-16 le} capsule by ity of mg capsule 19:33: mouth [place] 49 daily. Medical Branch tamsulosin 2020-0 Yes tamsulosin U nivers 0.4 mg 24 04-16 0.4 mg ity of hr capsule 19:33: capsule [place] 49 Take 1 Medical capsule Branch every day by oral route as directed for 30 days. watch out for or stop if: headache, dizziness upon standing, or worsened nasal congestion . aspirin 2020-0 Yes 81mg Take 81 mg Univ ers (KWAME 6-23 by mouth ity of CHEWABLE 19:33: daily. [place] ASPIRIN) 81 49 Medical mg chewable Branch tablet magnesium 2020-0 Yes 1{capsu Take 1 Uni vers oxide 400 6-23 le} capsule by ity of mg capsule 19:33: mouth [place] 49 daily. Medical Branch tamsulosin 2020-0 Yes tamsulosin U nivers 0.4 mg 24 6-23 0.4 mg ity of hr capsule 19:33: capsule [place] 49 Take 1 Medical capsule Branch every day by oral route as directed for 30 days. watch out for or stop if: headache, dizziness upon standing, or worsened nasal congestion . aspirin 2020-0 Yes 81mg Take 81 mg Univ ers (KWAME 6-23 by mouth ity of CHEWABLE 19:33: daily. [place] ASPIRIN) 81 49 Medical mg chewable Branch tablet magnesium 2020-0 Yes 1{capsu Take 1 Uni vers oxide 400 6-23 le} capsule by ity of mg capsule 19:33: mouth [place] 49 daily. Medical Branch tamsulosin 2020-0 Yes tamsulosin U nivers 0.4 mg 24 6-23 0.4 mg ity of hr capsule 19:33: capsule [place] 49 Take 1 Medical capsule Branch every day by oral route as directed for 30 days. watch out for or stop if: headache, dizziness upon standing, or worsened nasal congestion . aspirin 2020-0 Yes 81mg Take 81 mg Univ ers (KWAME 6-23 by mouth ity of CHEWABLE 19:33: daily. [place] ASPIRIN) 81 49 Medical mg chewable Branch tablet magnesium 2020-0 Yes 1{capsu Take 1 Uni vers oxide 400 6-23 le} capsule by ity of mg capsule 19:33: mouth [place] 49 daily. Medical Branch tamsulosin 2020-0 Yes tamsulosin U nivers 0.4 mg 24 6-23 0.4 mg ity of hr capsule 19:33: capsule [place] 49 Take 1 Medical capsule Branch every day by oral route as directed for 30 days. watch out for or stop if: headache, dizziness upon standing, or worsened nasal congestion . aspirin 2020-0 Yes 81mg Take 81 mg Univ ers (KWAME 6-23 by mouth ity of CHEWABLE 19:33: daily. [place] ASPIRIN) 81 49 Medical mg chewable Branch tablet magnesium 2020-0 Yes 1{capsu Take 1 Uni vers oxide 400 6-23 le} capsule by ity of mg capsule 19:33: mouth [place] 49 daily. Medical Branch tamsulosin 2020-0 Yes tamsulosin U nivers 0.4 mg 24 6-23 0.4 mg ity of hr capsule 19:33: capsule [place] 49 Take 1 Medical capsule Branch every day by oral route as directed for 30 days. watch out for or stop if: headache, dizziness upon standing, or worsened nasal congestion . aspirin 2020-0 Yes 81mg Take 81 mg Univ ers (KWAME 6-23 by mouth ity of CHEWABLE 19:33: daily. [place] ASPIRIN) 81 49 Medical mg chewable Branch tablet magnesium 2020-0 Yes 1{capsu Take 1 Uni vers oxide 400 6-23 le} capsule by ity of mg capsule 19:33: mouth [place] 49 daily. Medical Branch tamsulosin 2020-0 Yes tamsulosin U nivers 0.4 mg 24 6-23 0.4 mg ity of hr capsule 19:33: capsule [place] 49 Take 1 Medical capsule Branch every day by oral route as directed for 30 days. watch out for or stop if: headache, dizziness upon standing, or worsened nasal congestion . dexamethaso 2020-0 2020- No 10mg Unive rs ne sod phos 04-02 ity of PF 18:30: 17:27 [place] injection 00 :00 Medical 10 mg Branch bupivacaine 2020-0 2020- No 5mL Unive rs (preserv 04-02 ity of free) 18:30: 17:27 [place] (SENSORCAIN 00 :00 Medical E MPF) 0.25 Branch % (2.5 mg/mL) injection 5 mL lidocaine 2020-0 2020- No 4mL [facility] 1% (PF) 04-02 ity of (XYLOCAINE) 18:30: 17:27 [place] injection 4 00 :00 Medical mL Branch lidocaine 2020-0 2020- No 4mL 4 mL, Univer s 1% (PF) 04-02 Infiltrati ity o f (XYLOCAINE) 18:30: 17:27 on, ONCE, [place] injection 4 00 :00 1 dose, Medic al mL 04/02/20 Branch at 1330, Routine bupivacaine 2020-0 2020- No 5mL 5 mL, Univ ers (preserv 04-02 Infiltrati ity of free) 18:30: 17:27 on, ONCE, [place] (SENSORCAIN 00 :00 1 dose, Medic al E MPF) 0.25 04/02/20 Br anch % (2.5 at 1330, mg/mL) Routine injection 5 mL dexamethaso 2020-0 2020- No 10mg 10 mg, Uni vers ne sod phos 04-02 Intramuscu i ty of PF 18:30: 17:27 lar, ONCE, [place] injection 00 :00 1 dose, Medical 10 mg 04/02/20 Branch at 1330, Routine dexamethaso 2020-0 2020- No 10mg Unive rs ne sod phos 04-02 ity of PF 18:30: 17:27 [place] injection 00 :00 Medical 10 mg Branch bupivacaine 2020-0 2020- No 5mL Unive rs (preserv 04-02 ity of free) 18:30: 17:27 [place] (SENSORCAIN 00 :00 Medical E MPF) 0.25 Branch % (2.5 mg/mL) injection 5 mL lidocaine 2020-0 2020- No 4mL [facility] 1% (PF) 04-02 ity of (XYLOCAINE) 18:30: 17:27 [place] injection 4 00 :00 Medical mL Branch lidocaine 2020-0 2020- No 4mL 4 mL, Univer s 1% (PF) 04-02 Infiltrati ity o f (XYLOCAINE) 18:30: 17:27 on, ONCE, [place] injection 4 00 :00 1 dose, Medic al mL 04/02/20 Branch at 1330, Routine bupivacaine 2020-0 2020- No 5mL 5 mL, Univ ers (preserv 04-02 Infiltrati ity of free) 18:30: 17:27 on, ONCE, [place] (SENSORCAIN 00 :00 1 dose, Medic al E MPF) 0.25 04/02/20 Br anch % (2.5 at 1330, mg/mL) Routine injection 5 mL dexamethaso 2020-0 2020- No 10mg 10 mg, Uni vers ne sod phos 04-02 Intramuscu i ty of PF 18:30: 17:27 lar, ONCE, [place] injection 00 :00 1 dose, Medical 10 mg 04/02/20 Branch at 1330, Routine cyclobenzap 2020-0 Yes [id number] 7.5mg Take 1 Univers rine 7.5 mg 6-09 tablet by ity of tablet 00:00: mouth 3 (three) Medical times Branch daily as needed for Muscle Spasms. cyclobenzap 2020-0 Yes [id number] 7.5mg Take 1 Univers rine 7.5 mg 6-09 tablet by ity of tablet 00:00: mouth 3 (three) Medical times Branch daily as needed for Muscle Spasms. cyclobenzap 2020-0 Yes [id number] 7.5mg Take 1 Univers rine 7.5 mg 6-09 tablet by ity of tablet 00:00: mouth 3 (three) Medical times Branch daily as needed for Muscle Spasms. cyclobenzap 2020-0 Yes [id number] 7.5mg Take 1 [facility] rine 7.5 mg 6-09 tablet by ity of tablet 00:00: mouth 3 [place] (three) Medical times Branch daily as needed for Muscle Spasms. cyclobenzap 2020-0 Yes [id number] 7.5mg Take 1 Univers rine 7.5 mg 6-09 tablet by ity of tablet 00:00: mouth (three) Medical times Branch daily as needed for Muscle Spasms. cyclobenzap 2020-0 Yes [id number] 7.5mg Take 1 Univers rine 7.5 mg 6-09 tablet by ity of tablet 00:00: mouth [place] (three) Medical times Branch daily as needed for Muscle Spasms. cyclobenzap 2020-0 Yes [id number] 7.5mg Take 1 Univers rine 7.5 mg 6-09 tablet by ity of tablet 00:00: mouth 3 [place] (three) Medical times Branch daily as needed for Muscle Spasms. cyclobenzap 2020-0 Yes [id number] 7.5mg Take 1 Univers rine 7.5 mg 6-09 tablet by ity of tablet 00:00: mouth 3 (three) Medical times Branch daily as needed for Muscle Spasms. cyclobenzap 2020-0 Yes [id number] 7.5mg Take 1 [facility] rine 7.5 mg 6-09 tablet by ity of tablet 00:00: mouth 3 (three) Medical times Branch daily as needed for Muscle Spasms. cyclobenzap 2020-0 Yes [id number] 7.5mg Take 1 [facility] rine 7.5 mg 6-09 tablet by ity of tablet 00:00: mouth 3 (three) Medical times Branch daily as needed for Muscle Spasms. cyclobenzap 2020-0 Yes [id number] 7.5mg Take 1 [facility] rine 7.5 mg 6-09 tablet by ity of tablet 00:00: mouth (three) Medical times Branch daily as needed for Muscle Spasms. cyclobenzap 2020-0 Yes [id number] 7.5mg Take 1 [facility] rine 7.5 mg 6-09 tablet by ity of tablet 00:00: mouth 3 (three) Medical times Branch daily as needed for Muscle Spasms. cyclobenzap 2020-0 Yes [id number] 7.5mg Take 1 [facility] rine 7.5 mg 6-09 tablet by ity of tablet 00:00: mouth (three) Medical times Branch daily as needed for Muscle Spasms. cyclobenzap 2020-0 Yes [id number] 7.5mg Take 1 [facility] rine 7.5 mg 6-09 tablet by ity of tablet 00:00: mouth (three) Medical times Branch daily as needed for Muscle Spasms. cyclobenzap 2020-0 Yes [id number] 7.5mg Take 1 [facility] rine 7.5 mg 6-09 tablet by ity of tablet 00:00: mouth (three) Medical times Branch daily as needed for Muscle Spasms. cyclobenzap 2020-0 Yes [id number] 7.5mg Take 1 [facility] rine 7.5 mg 6-09 tablet by ity of tablet 00:00: mouth (three) Medical times Branch daily as needed for Muscle Spasms. cyclobenzap 2020-0 Yes [id number] 7.5mg Take 1 [facility] rine 7.5 mg 6-09 tablet by ity of tablet 00:00: mouth 3 (three) Medical times Branch daily as needed for Muscle Spasms. cyclobenzap 2020-0 2020- No [id number] 7.5mg Take 1 [facility] rine 7.5 mg 6-09 - tablet by it y of tablet 00:00: 00:00 mouth 3 [place] 00 :00 (three) Medical times Branch daily as needed for Muscle Spasms. cyclobenzap 2020-0 2020- No [id number] 7.5mg Take 1 [facility] rine 7.5 mg 04-02 tablet by it y of tablet 00:00: 00:00 mouth 3 [place] 00 :00 (three) Medical times Branch daily as needed for Muscle Spasms. CYCLOBENZAP 2020-0 Yes [id number] TAKE 1 [facility] RINE 5 mg 5-20 TABLET BY ity o f tablet 00:00: MOUTH [place] 00 THREE Medical TIMES Branch DAILY CYCLOBENZAP 2020-0 Yes [id number] TAKE 1 [facility] RINE 5 mg 5-20 TABLET BY ity o f tablet 00:00: [facility] 00 THREE Medical TIMES Branch DAILY CYCLOBENZAP 2020-0 2020- No [id number] TAKE 1 [facility] RINE 5 mg 5-20 06- TABLET BY ity of tablet 00:00: 00:00 [facility] 00 :00 THREE Medical TIMES Branch DAILY CYCLOBENZAP 2020-0 2020- No [id number] TAKE 1 [facility] RINE 5 mg 5-20 06- TABLET BY ity of tablet 00:00: 00:00 [facility] 00 :00 THREE Medical TIMES Branch DAILY butalbital- 2020-0 Yes TK 1 T PO U nivers acetaminoph 5-19 Q 6 H ity of en-caff 00:00: [place] 50-325-40 00 Medical mg tablet Branch butalbital- 2020-0 Yes TK 1 T PO U nivers acetaminoph 5-19 Q 6 H ity of en-caff 00:00: [place] 50-325-40 00 Medical mg tablet Branch butalbital- 2020-0 Yes TK 1 T PO U nivers acetaminoph 5-19 Q 6 H ity of en-caff 00:00: [place] 50-325-40 00 Medical mg tablet Branch butalbital- 2020-0 Yes TK 1 T PO U nivers acetaminoph 5-19 Q 6 H ity of en-caff 00:00: [place] 50-325-40 00 Medical mg tablet Branch butalbital- 2020-0 Yes TK 1 T PO U nivers acetaminoph 5-19 Q 6 H ity of en-caff 00:00: [place] 50-325-40 00 Medical mg tablet Branch butalbital- 2020-0 Yes TK 1 T PO U nivers acetaminoph 5-19 Q 6 H ity of en-caff 00:00: [place] 50-325-40 00 Medical mg tablet Branch butalbital- 2020-0 Yes TK 1 T PO U nivers acetaminoph 5-19 Q 6 H ity of en-caff 00:00: [place] 50-325-40 00 Medical mg tablet Branch butalbital- 2020-0 Yes TK 1 T PO U nivers acetaminoph 5-19 Q 6 H ity of en-caff 00:00: [place] 50-325-40 00 Medical mg tablet Branch butohbital- 2020-0 Yes TK 1 T PO U nivers acetaminoph 5-19 Q 6 H ity of en-caff 00:00: [place] 50-325-40 00 Medical mg tablet Branch butalbital- 2020-0 Yes TK 1 T PO U nivers acetaminoph 5-19 Q 6 H ity of en-caff 00:00: [place] 50-325-40 00 Medical mg tablet Branch butalbital- 2020-0 Yes TK 1 T PO U nivers acetaminoph 5-19 Q 6 H ity of en-caff 00:00: [place] 50-325-40 00 Medical mg tablet Branch butohbital- 2020-0 Yes TK 1 T PO U nivers acetaminoph 5-19 Q 6 H ity of en-caff 00:00: [place] 50-325-40 00 Medical mg tablet Branch butalbital- 2020-0 Yes TK 1 T PO U nivers acetaminoph 5-19 Q 6 H ity of en-caff 00:00: [place] 50-325-40 00 Medical mg tablet Branch butohbital- 2020-0 Yes TK 1 T PO U nivers acetaminoph 5-19 Q 6 H ity of en-caff 00:00: [place] 50-325-40 00 Medical mg tablet Branch butalbital- 2020-0 Yes TK 1 T PO U nivers acetaminoph 5-19 Q 6 H ity of en-caff 00:00: [place] 50-325-40 00 Medical mg tablet Branch butalbital- 2020-0 Yes TK 1 T PO U nivers acetaminoph 5-19 Q 6 H ity of en-caff 00:00: [place] 50-325-40 00 Medical mg tablet Branch butalbital- 2020-0 Yes TK 1 T PO U nivers acetaminoph 5-19 Q 6 H ity of en-caff 00:00: [place] 50-325-40 00 Medical mg tablet Branch butalbital- 2020-0 Yes TK 1 T PO U nivers acetaminoph 5-19 Q 6 H ity of en-caff 00:00: [place] 50-325-40 00 Medical mg tablet Branch butalbital- 2020-0 Yes TK 1 T PO U nivers acetaminoph 5-19 Q 6 H ity of en-caff 00:00: [place] 50-325-40 00 Medical mg tablet Branch butalbital- 2020-0 Yes TK 1 T PO U nivers acetaminoph 5-19 Q 6 H ity of en-caff 00:00: [place] 50-325-40 00 Medical mg tablet Branch butalbital- 2020-0 Yes TK 1 T PO U nivers acetaminoph 5-19 Q 6 H ity of en-caff 00:00: [place] 50-325-40 00 Medical mg tablet Branch butalbital- 2020-0 Yes TK 1 T PO U nivers acetaminoph 5-19 Q 6 H ity of en-caff 00:00: [place] 50-325-40 00 Medical mg tablet Branch butalbital- 2020-0 Yes TK 1 T PO U nivers acetaminoph 5-19 Q 6 H ity of en-caff 00:00: [place] 50-325-40 00 Medical mg tablet Branch butalbital- 2020-0 Yes TK 1 T PO U nivers acetaminoph 5-19 Q 6 H ity of en-caff 00:00: [place] 50-325-40 00 Medical mg tablet Branch butalbital- 2020-0 Yes TK 1 T PO U nivers acetaminoph 5-19 Q 6 H ity of en-caff 00:00: [place] 50-325-40 00 Medical mg tablet Branch butalbital- 2020-0 Yes TK 1 T PO U nivers acetaminoph 5-19 Q 6 H ity of en-caff 00:00: [place] 50-325-40 00 Medical mg tablet Branch butalbital- 2020-0 Yes TK 1 T PO U nivers acetaminoph 5-19 Q 6 H ity of en-caff 00:00: [place] 50-325-40 00 Medical mg tablet Branch butalbital- 2020-0 Yes TK 1 T PO U nivers acetaminoph 5-19 Q 6 H ity of en-caff 00:00: [place] 50-325-40 00 Medical mg tablet Branch butalbital- 2020-0 Yes TK 1 T PO U nivers acetaminoph 5-19 Q 6 H ity of en-caff 00:00: [place] 50-325-40 00 Medical mg tablet Branch butalbital- 2020-0 Yes TK 1 T PO U nivers acetaminoph 5-19 Q 6 H ity of en-caff 00:00: [place] 50-325-40 00 Medical mg tablet Branch butalbital- 2020-0 Yes TK 1 T PO U nivers acetaminoph 5-19 Q 6 H ity of en-caff 00:00: [place] 50-325-40 00 Medical mg tablet Branch butalbital- 2020-0 Yes TK 1 T PO U nivers acetaminoph 5-19 Q 6 H ity of en-caff 00:00: [place] 50-325-40 00 Medical mg tablet Branch butalbital- 2020-0 Yes TK 1 T PO U nivers acetaminoph 5-19 Q 6 H ity of en-caff 00:00: [place] 50-325-40 00 Medical mg tablet Branch butalbital- 2020-0 Yes TK 1 T PO U nivers acetaminoph 5-19 Q 6 H ity of en-caff 00:00: [place] 50-325-40 00 Medical mg tablet Branch butalbital- 2020-0 Yes TK 1 T PO U nivers acetaminoph 5-19 Q 6 H ity of en-caff 00:00: [place] 50-325-40 00 Medical mg tablet Branch butalbital- 2020-0 Yes TK 1 T PO U nivers acetaminoph 5-19 Q 6 H ity of en-caff 00:00: [place] 50-325-40 00 Medical mg tablet Branch butalbital- 2020-0 Yes TK 1 T PO U nivers acetaminoph 5-19 Q 6 H ity of en-caff 00:00: [place] 50-325-40 00 Medical mg tablet Branch butalbital- 2020-0 Yes TK 1 T PO U nivers acetaminoph 5-19 Q 6 H ity of en-caff 00:00: [place] 50-325-40 00 Medical mg tablet Branch butalbital- 2020-0 Yes TK 1 T PO U nivers acetaminoph 5-19 Q 6 H ity of en-caff 00:00: [place] 50-325-40 00 Medical mg tablet Branch butalbital- 2020-0 Yes TK 1 T PO U nivers acetaminoph 5-19 Q 6 H ity of en-caff 00:00: [place] 50-325-40 00 Medical mg tablet Branch butalbital- 2020-0 Yes TK 1 T PO U nivers acetaminoph 5-19 Q 6 H ity of en-caff 00:00: [place] 50-325-40 00 Medical mg tablet Branch butalbital- 2020-0 Yes TK 1 T PO U nivers acetaminoph 5-19 Q 6 H ity of en-caff 00:00: [place] 50-325-40 00 Medical mg tablet Branch butalbital- 2020-0 Yes TK 1 T PO U nivers acetaminoph 5-19 Q 6 H ity of en-caff 00:00: [place] 50-325-40 00 Medical mg tablet Branch butalbital- 2020-0 Yes TK 1 T PO U nivers acetaminoph 5-19 Q 6 H ity of en-caff 00:00: [place] 50-325-40 00 Medical mg tablet Branch butalbital- 2020-0 Yes TK 1 T PO U nivers acetaminoph 5-19 Q 6 H ity of en-caff 00:00: [place] 50-325-40 00 Medical mg tablet Branch butalbital- 2020-0 Yes TK 1 T PO U nivers acetaminoph 5-19 Q 6 H ity of en-caff 00:00: [place] 50-325-40 00 Medical mg tablet Branch butalbital- 2020-0 2021- No TK 1 T PO [facility] acetaminoph 5-19 06-11 Q 6 H ity of en-caff 00:00: 00:00 [place] 50-325-40 00 :00 Medical mg tablet Branch cyclobenzap 2020-0 Yes [id number] 5mg Take 1 [facility] rine 5 mg 4-15 tablet by ity o f tablet 00:00: mouth 3 [place] 00 (three) Medical times Branch daily. cyclobenzap 2020-0 Yes [id number] 5mg Take 1 [facility] rine 5 mg 4-15 tablet by ity o f tablet 00:00: mouth 3 [place] 00 (three) Medical times Branch daily. cyclobenzap 2020-0 2020- No [id number] 5mg Take 1 [facility] rine 5 mg 4-15 05-20 tablet by ity of tablet 00:00: 00:00 mouth 3 [place] 00 :00 (three) Medical times Branch daily. aspirin 2020-0 Yes 81mg Take 81 mg Univ ers (KWAME 3-16 by mouth ity of CHEWABLE 15:22: daily. [place] ASPIRIN) 81 03 Medical mg chewable Branch tablet magnesium 2020-0 Yes 1{capsu Take 1 Uni vers oxide 400 3-16 le} capsule by ity of mg capsule 15:22: mouth [place] daily. Medical Branch nisoldipine 2020-0 Yes 17mg Take 17 mg [facility] 17 mg 24 hr 3-16 by mouth ity of tablet 15:22: daily. [place] Medical Branch tamsulosin 2020-0 Yes tamsulosin U nivers 0.4 mg 24 3-16 0.4 mg ity of hr capsule 15:22: capsule [place] 03 Take 1 Medical capsule Branch every day by oral route as directed for 30 days. watch out for or stop if: headache, dizziness upon standing, or worsened nasal congestion . aspirin 2020-0 Yes 81mg Take 81 mg Univ ers (KWAME 3-16 by mouth ity of CHEWABLE 15:22: daily. [place] ASPIRIN) 81 03 Medical mg chewable Branch tablet magnesium 2020-0 Yes 1{capsu Take 1 Uni vers oxide 400 3-16 le} capsule by ity of mg capsule 15:22: mouth daily. Medical Branch nisoldipine 2020-0 Yes 17mg Take 17 mg [facility] 17 mg 24 hr 3-16 by mouth ity of tablet 15:22: daily. [place] [address] Medical Branch tamsulosin 2020-0 Yes tamsulosin U nivers 0.4 mg 24 3-16 0.4 mg ity of hr capsule 15:22: capsule [place] 03 Take 1 Medical capsule Branch every day by oral route as directed for 30 days. watch out for or stop if: headache, dizziness upon standing, or worsened nasal congestion . aspirin 2020-0 Yes 81mg Take 81 mg Univ ers (KWAME 3-16 by mouth ity of CHEWABLE 15:22: daily. [place] ASPIRIN) 81 03 Medical mg chewable Branch tablet magnesium 2020-0 Yes 1{capsu Take 1 Uni vers oxide 400 3-16 le} capsule by ity of mg capsule 15:22: mouth [place] 03 daily. Medical Branch nisoldipine 2020-0 Yes 17mg Take 17 mg [facility] 17 mg 24 hr 3-16 by mouth ity of tablet 15:22: daily. 03 Medical Branch tamsulosin 2020-0 Yes tamsulosin U nivers 0.4 mg 24 3-16 0.4 mg ity of hr capsule 15:22: capsule [place] 03 Take 1 Medical capsule Branch every day by oral route as directed for 30 days. watch out for or stop if: headache, dizziness upon standing, or worsened nasal congestion . aspirin 2020-0 Yes 81mg Take 81 mg Univ ers (KWAME 3-16 by mouth ity of CHEWABLE 15:22: daily. [place] ASPIRIN) 81 03 Medical mg chewable Branch tablet magnesium 2020-0 Yes 1{capsu Take 1 Uni vers oxide 400 3-16 le} capsule by ity of mg capsule 15:22: mouth [place] 03 daily. Medical Branch nisoldipine 2020-0 Yes 17mg Take 17 mg [facility] 17 mg 24 hr 3-16 by mouth ity of tablet 15:22: daily. [place] Medical Branch tamsulosin 2020-0 Yes tamsulosin U nivers 0.4 mg 24 3-16 0.4 mg ity of hr capsule 15:22: capsule [place] 03 Take 1 Medical capsule Branch every day by oral route as directed for 30 days. watch out for or stop if: headache, dizziness upon standing, or worsened nasal congestion . aspirin 2020-0 Yes 81mg Take 81 mg Univ ers (KWAME 3-16 by mouth ity of CHEWABLE 15:22: daily. [place] ASPIRIN) 81 03 Medical mg chewable Branch tablet magnesium 2020-0 Yes 1{capsu Take 1 Uni vers oxide 400 3-16 le} capsule by ity of mg capsule 15:22: mouth [place] 03 daily. Medical Branch nisoldipine 2020-0 Yes 17mg Take 17 mg [facility] 17 mg 24 hr 3-16 by mouth ity of tablet 15:22: daily. [place] [facility] Branch tamsulosin 2020-0 Yes tamsulosin U nivers 0.4 mg 24 3-16 0.4 mg ity of hr capsule 15:22: capsule [place] 03 Take 1 Medical capsule Branch every day by oral route as directed for 30 days. watch out for or stop if: headache, dizziness upon standing, or worsened nasal congestion . aspirin 2020-0 Yes 81mg Take 81 mg Univ ers (KWAME 3-16 by mouth ity of CHEWABLE 15:22: daily. [place] ASPIRIN) 81 03 Medical mg chewable Branch tablet magnesium 2020-0 Yes 1{capsu Take 1 Uni vers oxide 400 3-16 le} capsule by ity of mg capsule 15:22: mouth 03 daily. Medical Branch nisoldipine 2020-0 Yes 17mg Take 17 mg [facility] 17 mg 24 hr 3-16 by mouth ity of tablet 15:22: daily. [place] Medical Branch tamsulosin 2020-0 Yes tamsulosin U nivers 0.4 mg 24 3-16 0.4 mg ity of hr capsule 15:22: capsule [place] 03 Take 1 Medical capsule Branch every day by oral route as directed for 30 days. watch out for or stop if: headache, dizziness upon standing, or worsened nasal congestion . aspirin 2020-0 Yes 81mg Take 81 mg Univ ers (KWAME 3-16 by mouth ity of CHEWABLE 15:22: daily. [place] ASPIRIN) 81 03 Medical mg chewable Branch tablet magnesium 2020-0 Yes 1{capsu Take 1 Uni vers oxide 400 3-16 le} capsule by ity of mg capsule 15:22: mouth 03 daily. Medical Branch nisoldipine 2020-0 Yes 17mg Take 17 mg [facility] 17 mg 24 hr 3-16 by mouth ity of tablet 15:22: daily. [place] Medical Branch tamsulosin 2020-0 Yes tamsulosin U nivers 0.4 mg 24 3-16 0.4 mg ity of hr capsule 15:22: capsule [place] 03 Take 1 Medical capsule Branch every day by oral route as directed for 30 days. watch out for or stop if: headache, dizziness upon standing, or worsened nasal congestion . lactated 2020-0 Yes 500mL at 75 Univers ringers IV 3-16 mL/hr, 500 ity of infusion 14:45: mL, IV [place] 500 mL 00 Infusion, Medical CONTINUOUS Branch , Starting 01/08/20 at 0945, Until Discontinu ed, Routine, PACU iohexol 2020-0 Yes PRN, Univers (OMNIPAQUE 3-16 Starting ity o f 300-50 mL)) 14:28: [facility] injection 01/08/20 at [facility] 0928, Branch Until Discontinu ed, Routine, Intra-op triamcinolo 2020-0 Yes PRN, Univer s ne 3-16 Starting ity of acetonide 14:07: [facility] (KENALOG) 01/08/20 at [facility] injection 0907, Branch Until Discontinu ed, Routine, Intra-op NaCl 0.9% 2020-0 Yes PRN, Univers (NS) 3-16 Starting ity of injection 14:05: [facility] 01/08/20 at [facility] 0905, Branch Until Discontinu ed, Routine, Intra-op lidocaine 2020-0 Yes PRN, Univers 1% (PF) 3-16 Starting ity of (XYLOCAINE) 14:05: [facility] injection 01/08/20 at [facility] 09, Branch Until Discontinu ed, Routine, Intra-op bupivacaine 2020-0 Yes PRN, Univer s (preserv 3-16 Starting ity of free) 14:04: [facility] (SENSORCAIN 00 01/08/20 at [facility]) 0.25 [facility], [place] % (2.5 Until mg/mL) Discontinu injection ed, Routine, Intra-op metoprolol 2020-0 2020- No metoprolol Univers diaz/hydrochl 12-28-06 diaz-hydroch i ty of orothiaz 19:55: 00:00 lorothiaz [place] (DUTOPROL 59 :00 Medical ORAL) Branch cyclobenzap 2020-0 2020- No cyclobenza [facility] rine 5 mg 12-28-06 stephania 5 mg ity of tablet 19:55: 00:00 tablet [place] 59 :00 Medical Branch cyclobenzap 2020-0 Yes [id number] 5mg Take 1 [facility] rine 5 mg 2-18 tablet by ity o f tablet 00:00: mouth 3 00 (three) Medical times Branch daily. cyclobenzap 2020-0 Yes [id number] 5mg Take 1 [facility] rine 5 mg 2-18 tablet by ity o f tablet 00:00: mouth 3 [place] 00 (three) Medical times Branch daily. cyclobenzap 2020-0 Yes [id number] 5mg Take 1 [facility] rine 5 mg 2-18 tablet by ity o f tablet 00:00: mouth 3 [place] [address] (three) Medical times Branch daily. cyclobenzap 2020-0 Yes [id number] 5mg Take 1 [facility] rine 5 mg 2-18 tablet by ity o f tablet 00:00: mouth 3 [place] 00 (three) Medical times Branch daily. cyclobenzap 2020- No [id number] 5mg Take 1 [facility] rine 5 mg 2-18 04-15 tablet by ity of tablet 00:00: 00:00 mouth 3 [place] 00 :00 (three) Medical times [place] daily. tamsulosin 2020- No TK 1 C PO U nivers 0.4 mg 24 2-18 03-06 QD UTD ity of hr capsule 00:00: 00:00 [place] 00 :00 [facility] Branch cyclobenzap 2019- Yes cyclobenza [facility] rine 5 mg 2-15 stephania 5 mg ity of tablet 01:55: tablet [address] cyclobenzap 2019-0 Yes cyclobenza [facility] rine 5 mg 2-15 stephania 5 mg ity of tablet 01:55: tablet [address] cyclobenzap 2019- Yes cyclobenza [facility] rine 5 mg 2-15 stephanai 5 mg ity of tablet 01:55: tablet [address] cyclobenzap 2019- Yes cyclobenza [facility] rine 5 mg 2-15 stephania 5 mg ity of tablet 01:55: tablet [address] metoprolol Yes metoprolol U nivers diaz/hydrochl 2-15 diaz-hydroch it y of orothiaz 01:54: lorothiaz [place] (DUTOPROL 50 Medical ORAL) Branch metoprolol Yes metoprolol U nivers diaz/hydrochl 2-15 diaz-hydroch it y of orothiaz 01:54: lorothiaz [place] (DUTOPROL 50 Medical ORAL) Branch metoprolol Yes metoprolol U nivers diaz/hydrochl 2-15 diaz-hydroch it y of orothiaz 01:54: lorothiaz [place] (DUTOPROL 50 Medical ORAL) Branch metoprolol Yes metoprolol U nivers diaz/hydrochl 2-15 diaz-hydroch it y of orothiaz 01:54: lorothiaz [place] (DUTOPROL 50 Medical ORAL) Branch loratadine 2020-0 Yes [id number] 10mg Take 1 U nivers (CLARITIN) 2-14 tablet by ity of 10 mg 00:00: mouth [place] tablet 00 daily. Medical Branch fluticasone 2020-0 Yes [id number] 2{spray Use 2 [facility] propionate 2-14 } Sprays in ity of 50 00:00: each [place] mcg/actuati 00 nostril Medic al on nasal daily. Branch spray loratadine 2020-0 Yes [id number] 10mg Take 1 U nivers (CLARITIN) 2-14 tablet by ity of 10 mg 00:00: mouth [place] tablet 00 daily. Medical Branch fluticasone 2020-0 Yes [id number] 2{spray Use 2 [facility] propionate 2-14 } Sprays in ity of 50 00:00: each [place] mcg/actuati 00 nostril Medic al on nasal daily. Branch spray loratadine 2020-0 Yes [id number] 10mg Take 1 U nivers (CLARITIN) 2-14 tablet by ity of 10 mg 00:00: mouth [place] tablet 00 daily. Medical Branch fluticasone 2020-0 Yes [id number] 2{spray Use 2 [facility] propionate 2-14 } Sprays in ity of 50 00:00: each [place] mcg/actuati 00 nostril Medic al on nasal daily. Branch spray loratadine 2020-0 Yes [id number] 10mg Take 1 U nivers (CLARITIN) 2-14 tablet by ity of 10 mg 00:00: mouth [place] tablet 00 daily. Medical Branch fluticasone 2020-0 Yes [id number] 2{spray Use 2 [facility] propionate 2-14 } Sprays in ity of 50 00:00: each [place] mcg/actuati 00 nostril Medic al on nasal daily. Branch spray loratadine 2020-0 Yes [id number] 10mg Take 1 U nivers (CLARITIN) 2-14 tablet by ity of 10 mg 00:00: mouth [place] tablet 00 daily. Medical Branch fluticasone 2020-0 Yes [id number] 2{spray Use 2 [facility] propionate 2-14 } Sprays in ity of 50 00:00: each [place] mcg/actuati 00 nostril Medic al on nasal daily. Branch spray loratadine 2020-0 Yes [id number] 10mg Take 1 U nivers (CLARITIN) 2-14 tablet by ity of 10 mg 00:00: mouth [place] tablet 00 daily. Medical Branch fluticasone 2020-0 Yes [id number] 2{spray Use 2 [facility] propionate 2-14 } Sprays in ity of 50 00:00: each [place] mcg/actuati 00 nostril Medic al on nasal daily. Branch spray loratadine 2020-0 Yes [id number] 10mg Take 1 U nivers (CLARITIN) 2-14 tablet by ity of 10 mg 00:00: mouth [place] tablet 00 daily. Medical Branch fluticasone 2020-0 Yes [id number] 2{spray Use 2 [facility] propionate 2-14 } Sprays in ity of 50 00:00: each [place] mcg/actuati 00 nostril Medic al on nasal daily. Branch spray loratadine 2020-0 Yes [id number] 10mg Take 1 U nivers (CLARITIN) 2-14 tablet by ity of 10 mg 00:00: mouth [place] tablet 00 daily. Medical Branch fluticasone 2020-0 Yes [id number] 2{spray Use 2 [facility] propionate 2-14 } Sprays in ity of 50 00:00: each [place] mcg/actuati 00 nostril Medic al on nasal daily. Branch spray loratadine 2020-0 Yes [id number] 10mg Take 1 U nivers (CLARITIN) 2-14 tablet by ity of 10 mg 00:00: mouth [place] tablet 00 daily. Medical Branch fluticasone 2020-0 Yes [id number] 2{spray Use 2 [facility] propionate 2-14 } Sprays in ity of 50 00:00: each [place] mcg/actuati 00 nostril Medic al on nasal daily. Branch spray loratadine 2020-0 Yes [id number] 10mg Take 1 U nivers (CLARITIN) 2-14 tablet by ity of 10 mg 00:00: mouth [place] tablet 00 daily. Medical Branch fluticasone 2020-0 Yes [id number] 2{spray Use 2 [facility] propionate 2-14 } Sprays in ity of 50 00:00: each [place] mcg/actuati 00 nostril Medic al on nasal daily. Branch spray loratadine 2020-0 Yes [id number] 10mg Take 1 U nivers (CLARITIN) 2-14 tablet by ity of 10 mg 00:00: mouth [place] tablet 00 daily. Medical Branch fluticasone 2019-0 Yes [id number] 2{spray Use 2 [facility] propionate 2-14 } Sprays in ity of 50 00:00: each [place] mcg/actuati 00 nostril Medic al on nasal daily. Branch spray loratadine 2020- No [id number] 10mg Take 1 Univers (CLARITIN) 2-14 -23 tablet by ity of 10 mg 00:00: 00:00 mouth [place] tablet 00 :00 daily. Medical Branch fluticasone 2020- No [id number] 2{spray Use 2 [facility] propionate 2-14 -23 } Sprays in ity of 50 00:00: 00:00 each [place] mcg/actuati 00 :00 nostril Medic al on nasal daily. Branch spray acetaminoph 2020- No [id number] .5{tbl} Take 0.5-1 Univers en-codeine 2-14 02-18 tablets by it y of 300-30 mg 00:00: 05:59 mouth [place] tablet 00 :00 every 6 Medical (six) Branch hours as needed for Pain (scale 7-10) for up to 3 days. nisoldipine 2019-0 Yes 17mg Take 17 mg [facility] 17 mg 24 hr 2-04 by mouth ity of tablet 15:30: daily. [address] nisoldipine 2020-0 Yes 17mg Take 17 mg [facility] 17 mg 24 hr 2-04 by mouth ity of tablet 15:30: daily. [address] nisoldipine 2020-0 Yes 17mg Take 17 mg [facility] 17 mg 24 hr 2-04 by mouth ity of tablet 15:30: daily. [address] nisoldipine 2020-0 Yes 17mg Take 17 mg [facility] 17 mg 24 hr 2-04 by mouth ity of tablet 15:30: daily. [address] nisoldipine 2020-0 Yes 17mg Take 17 mg [facility] 17 mg 24 hr 2-04 by mouth ity of tablet 15:30: daily. [address] nisoldipine 2020-0 Yes 17mg Take 17 mg [facility] 17 mg 24 hr 2-04 by mouth ity of tablet 15:30: daily. [address] nisoldipine 2020-0 Yes 17mg Take 17 mg [facility] 17 mg 24 hr 2-04 by mouth ity of tablet 15:30: daily. [address] nisoldipine Yes 17mg Take 17 mg [facility] 17 mg 24 hr 2-04 by mouth ity of tablet 15:30: daily. [address] nisoldipine Yes 17mg Take 17 mg [facility] 17 mg 24 hr 2-04 by mouth ity of tablet 15:30: daily. [address] metoprolol 2018-10 Yes metoprolol U nivers diaz/hydrochl 0-29 diaz-hydroch it y of orothiaz 20:51: lorothiaz [place] (DUTOPROL 46 Medical ORAL) Branch metoprolol 2018-10 Yes metoprolol U nivers diaz/hydrochl 0-29 diaz-hydroch it y of orothiaz 20:51: lorothiaz [place] (DUTOPROL 46 Medical ORAL) Branch metoprolol 2018-10 Yes metoprolol U nivers diaz/hydrochl 0-29 diaz-hydroch it y of orothiaz 20:51: lorothiaz [place] (DUTOPROL 46 Medical ORAL) Branch metoprolol 2018-10 Yes metoprolol U nivers diaz/hydrochl 0-29 diaz-hydroch it y of orothiaz 20:51: lorothiaz [place] (DUTOPROL 46 Medical ORAL) Branch metoprolol 2018-10 Yes metoprolol U nivers diaz/hydrochl 0-29 diaz-hydroch it y of orothiaz 20:51: lorothiaz [place] (DUTOPROL 46 Medical ORAL) Branch aspirin Yes 81mg Take 81 mg Univ ers (KWAME 7-17 by mouth ity of CHEWABLE 15:39: daily. [place] ASPIRIN) 81 55 Medical mg chewable Branch tablet magnesium Yes 1{capsu Take 1 Uni vers oxide 400 7-17 le} capsule by ity of mg capsule 15:39: mouth [place] 55 daily. Medical Branch aspirin Yes 81mg Take 81 mg Univ ers (KWAME 7-17 by mouth ity of CHEWABLE 15:39: daily. [place] ASPIRIN) 81 55 Medical mg chewable Branch tablet magnesium Yes 1{capsu Take 1 Uni vers oxide 400 7-17 le} capsule by ity of mg capsule 15:39: mouth [place] 55 daily. Medical Branch aspirin Yes 81mg Take 81 mg Univ ers (KWAME 7-17 by mouth ity of CHEWABLE 15:39: daily. [place] ASPIRIN) 81 55 Medical mg chewable Branch tablet magnesium 2019- Yes 1{capsu Take 1 Uni vers oxide 400 7-17 le} capsule by ity of mg capsule 15:39: mouth [place] 55 daily. Medical Branch aspirin 2019-0 Yes 81mg Take 81 mg Univ ers (KWAME 7-17 by mouth ity of CHEWABLE 15:39: daily. [place] ASPIRIN) 81 55 Medical mg chewable Branch tablet magnesium 2018- Yes 1{capsu Take 1 Uni vers oxide 400 7-17 le} capsule by ity of mg capsule 15:39: mouth [place] 55 daily. Medical Branch aspirin 2019 Yes 81mg Take 81 mg Univ ers (KWAME 7-17 by mouth ity of CHEWABLE 15:39: daily. [place] ASPIRIN) 81 55 Medical mg chewable Branch tablet magnesium Yes 1{capsu Take 1 Uni vers oxide 400 7-17 le} capsule by ity of mg capsule 15:39: mouth [place] 55 daily. [facility] Branch aspirin Yes 81mg Take 81 mg [facility] ers (KWAME 7-17 by mouth ity of CHEWABLE 15:39: daily. [place] ASPIRIN) 81 55 Medical mg chewable Branch tablet magnesium Yes 1{capsu Take 1 Uni vers oxide 400 7-17 le} capsule by ity of mg capsule 15:39: mouth [place] 55 daily. Medical Branch aspirin 0 Yes 81mg Take 81 mg [facility] ers (KWAME 7-17 by mouth ity of CHEWABLE 15:39: daily. [place] ASPIRIN) 81 55 Medical mg chewable Branch tablet magnesium Yes 1{capsu Take 1 Uni vers oxide 400 7-17 le} capsule by ity of mg capsule 15:39: mouth [place] 55 daily. Medical Branch aspirin 20190 Yes 81mg Take 81 mg [facility] ers (KWAME 7-17 by mouth ity of CHEWABLE 15:39: daily. [place] ASPIRIN) 81 55 Medical mg chewable Branch tablet magnesium 2018-0 Yes 1{capsu Take 1 Uni vers oxide 400 7-17 le} capsule by ity of mg capsule 15:39: mouth [place] 55 daily. Medical Branch aspirin 2019 Yes 81mg Take 81 mg [facility] ers (KWAME 7-17 by mouth ity of CHEWABLE 15:39: daily. [place] ASPIRIN) 81 55 Medical mg chewable Branch tablet magnesium 2018-0 Yes 1{capsu Take 1 Uni vers oxide 400 7-17 le} capsule by ity of mg capsule 15:39: mouth [place] 55 daily. Medical Branch aspirin 2018- Yes 81mg Take 81 mg [facility] ers (KWAME 7-17 by mouth ity of CHEWABLE 15:39: daily. [place] ASPIRIN) 81 55 Medical mg chewable Branch tablet magnesium 2019- Yes 1{capsu Take 1 Uni vers oxide 400 7-17 le} capsule by ity of mg capsule 15:39: mouth [place] 55 daily. Medical Branch butalbital- Yes [id number] 1{tbl} Take 1 [facility] acetaminoph 5-24 tablet by ity of en-caff 00:00: mouth [place] (ESGIC) 00 every 6 Medical 50-325-40 (six) Branch mg tablet hours as needed. lidocaine 5 Yes [id number] 1{patch Apply 1 [facility] % (700 5-24 07 } Patch to ity of mg/patch) 00:00: area(s) [place] patch 00 every 8 Medical (eight) Branch hours as needed for Localized pain. methocarbam Yes [id number] 750mg Take 1 [facility] ol 750 mg 5-24 tablet by ity o f tablet 00:00: mouth 4 00 (four) Medical times Branch daily. donepezil Yes [id number] 10mg Take 1 [facility] 10 mg 5-24 tablet by ity of disintegrat 00:00: [place] tablet 00 bedtime. Medic al Branch butalbital- Yes [id number] 1{tbl} Take 1 [facility] acetaminoph 5-24 tablet by ity of en-caff 00:00: mouth [place] (ESGIC) 00 every 6 Medical 50-325-40 (six) Branch mg tablet hours as needed. lidocaine 5 Yes [id number] 1{patch Apply 1 [facility] % (700 5-24 07 } Patch to ity of mg/patch) 00:00: area(s) [place] patch 00 every 8 Medical (eight) Branch hours as needed for Localized pain. methocarbam Yes [id number] 750mg Take 1 [facility] ol 750 mg 5-24 tablet by ity o f tablet 00:00: mouth 4 [place] 00 (four) Medical times Branch daily. donepezil Yes [id number] 10mg Take 1 [facility] 10 mg 5-24 tablet by ity of disintegrat 00:00: [place] tablet 00 bedtime. Medic al Branch butalbital- Yes [id number] 1{tbl} Take 1 [facility] acetaminoph 5-24 tablet by ity of en-caff 00:00: mouth [place] (ESGIC) 00 every 6 Medical 50-325-40 (six) Branch mg tablet hours as needed. lidocaine 5 Yes [id number] 1{patch Apply 1 [facility] % (700 5-24 07 } Patch to ity of mg/patch) 00:00: area(s) [place] patch 00 every 8 Medical (eight) Branch hours as needed for Localized pain. methocarbam Yes [id number] 750mg Take 1 [facility] ol 750 mg 5-24 tablet by ity o f tablet 00:00: mouth 4 [place] 00 (four) Medical times Branch daily. donepezil Yes [id number] 10mg Take 1 [facility] 10 mg 5-24 tablet by ity of disintegrat 00:00: [place] tablet 00 bedtime. Medic al Branch butalbital Yes [id number] 1{tbl} Take 1 [facility] acetaminoph 5-24 tablet by ity of en-caff 00:00: mouth [place] (ESGIC) 00 every 6 Medical 50-325-40 (six) Branch mg tablet hours as needed. lidocaine 5 Yes [id number] 1{patch Apply 1 [facility] % (700 5-24 07 } Patch to ity of mg/patch) 00:00: area(s) [place] patch 00 every 8 Medical (eight) Branch hours as needed for Localized pain. methocarbam Yes [id number] 750mg Take 1 [facility] ol 750 mg 5-24 tablet by ity o f tablet 00:00: mouth 4 [place] 00 (four) Medical times Branch daily. donepezil Yes [id number] 10mg Take 1 [facility] 10 mg 5-24 tablet by ity of disintegrat 00:00: [place] tablet 00 bedtime. Medic al Branch butalbital- Yes [id number] 1{tbl} Take 1 [facility] acetaminoph 5-24 tablet by ity of en-caff 00:00: mouth [place] (ESGIC) 00 every 6 Medical 50-325-40 (six) Branch mg tablet hours as needed. lidocaine 5 Yes [id number] 1{patch Apply 1 [facility] % (700 5-24 07 } Patch to ity of mg/patch) 00:00: area(s) [place] patch 00 every 8 Medical (eight) Branch hours as needed for Localized pain. methocarbam Yes [id number] 750mg Take 1 [facility] ol 750 mg 5-24 tablet by ity o f tablet 00:00: mouth 4 [place] 00 (four) Medical times Branch daily. donepezil Yes [id number] 10mg Take 1 [facility] 10 mg 5-24 tablet by ity of disintegrat 00:00: [place] tablet 00 bedtime. Medic al Branch butalbital- Yes [id number] 1{tbl} Take 1 [facility] acetaminoph 5-24 tablet by ity of en-caff 00:00: mouth [place] (ESGIC) 00 every 6 Medical 50-325-40 (six) Branch mg tablet hours as needed. lidocaine Yes [id number] 1{patch Apply 1 [facility] % (700 5-24 07 } Patch to ity of mg/patch) 00:00: area(s) [place] patch 00 every 8 Medical (eight) Branch hours as needed for Localized pain. methocarbam 2018- Yes [id number] 750mg Take 1 [facility] ol 750 mg 5-24 tablet by ity o f tablet 00:00: mouth 4 [place] 00 (four) Medical times Branch daily. donepezil 2018- Yes [id number] 10mg Take 1 [facility] 10 mg 5-24 tablet by ity of disintegrat 00:00: [place] tablet 00 bedtime. Medic al Branch butalbital- Yes [id number] 1{tbl} Take 1 [facility] acetaminoph 5-24 tablet by ity of en-caff 00:00: mouth [place] (ESGIC) 00 every 6 Medical 50-325-40 (six) Branch mg tablet hours as needed. lidocaine 5 Yes [id number] 1{patch Apply 1 [facility] % (700 5-24 07 } Patch to ity of mg/patch) 00:00: area(s) [place] patch 00 every 8 Medical (eight) Branch hours as needed for Localized pain. methocarbam 2019-0 Yes [id number] 750mg Take 1 [facility] ol 750 mg 5-24 tablet by ity o f tablet 00:00: mouth 4 [place] 00 (four) Medical times Branch daily. donepezil 2019-0 Yes [id number] 10mg Take 1 [facility] 10 mg 5-24 tablet by ity of disintegrat 00:00: [place] tablet 00 bedtime. Medic al Branch butalbital- Yes [id number] 1{tbl} Take 1 [facility] acetaminoph 5-24 tablet by ity of en-caff 00:00: mouth [place] (ESGIC) 00 every 6 Medical 50-325-40 (six) Branch mg tablet hours as needed. lidocaine 5 2018- Yes [id number] 1{patch Apply 1 [facility] % (700 5-24 07 } Patch to ity of mg/patch) 00:00: area(s) [place] patch 00 every 8 Medical (eight) Branch hours as needed for Localized pain. methocarbam 2019-0 Yes [id number] 750mg Take 1 [facility] ol 750 mg 5-24 tablet by ity o f tablet 00:00: mouth 4 [place] 00 (four) Medical times Branch daily. donepezil 2019-0 Yes [id number] 10mg Take 1 [facility] 10 mg 5-24 tablet by ity of disintegrat 00:00: [place] tablet 00 bedtime. Medic al Branch butalbital- 2019-0 Yes [id number] 1{tbl} Take 1 [facility] acetaminoph 5-24 tablet by ity of en-caff 00:00: mouth [place] (ESGIC) 00 every 6 Medical 50-325-40 (six) Branch mg tablet hours as needed. lidocaine 5 2018-0 Yes [id number] 1{patch Apply 1 [facility] % (700 5-24 07 } Patch to ity of mg/patch) 00:00: area(s) [place] patch 00 every 8 Medical (eight) Branch hours as needed for Localized pain. methocarbam 2019-0 Yes [id number] 750mg Take 1 [facility] ol 750 mg 5-24 tablet by ity o f tablet 00:00: mouth 4 [place] 00 (four) Medical times Branch daily. donepezil 2019-0 Yes [id number] 10mg Take 1 [facility] 10 mg 5-24 tablet by ity of disintegrat 00:00: [place] tablet 00 bedtime. Medic al Branch butalbital- Yes [id number] 1{tbl} Take 1 [facility] acetaminoph 5-24 tablet by ity of en-caff 00:00: mouth [place] (ESGIC) 00 every 6 Medical 50-325-40 (six) Branch mg tablet hours as needed. lidocaine 5 Yes [id number] 1{patch Apply 1 [facility] % (700 5-24 07 } Patch to ity of mg/patch) 00:00: area(s) [place] patch 00 every 8 Medical (eight) Branch hours as needed for Localized pain. methocarbam Yes [id number] 750mg Take 1 [facility] ol 750 mg 5-24 tablet by ity o f tablet 00:00: mouth 4 [place] 00 (four) Medical times Branch daily. donepezil Yes [id number] 10mg Take 1 [facility] 10 mg 5-24 tablet by ity of disintegrat 00:00: [place] tablet 00 bedtime. Medic al Branch butalbital- 2020- No [id number] 1{tbl} Take 1 [facility] acetaminoph 5-24 03-06 tablet by it y of en-caff 00:00: 00:00 mouth [place] (ESGIC) 00 :00 every 6 Medical 50-325-40 (six) Branch mg tablet hours as needed. lidocaine 5 2020- No [id number] 1{patch Apply 1 [facility] % (700 5-24 03-06 07 } Patch to ity of mg/patch) 00:00: 00:00 [place] patch 00 :00 every 8 Medical (eight) Branch hours as needed for Localized pain. methocarbam 2020- No [id number] 750mg Take 1 [facility] ol 750 mg 5-24 03-06 tablet by ity of tablet 00:00: 00:00 mouth 4 [place] 00 :00 (four) Medical times Branch daily. donepezil 2020- No [id number] 10mg Take 1 U nivers 10 mg 5-24 03-06 tablet by ity of disintegrat 00:00: 00:00 [place] tablet 00 :00 bedtime. Medic al Branch cloNIDine Yes TK 1 T PO Uni vers 0.1 mg 5-13 BID ity of tablet 00:00: [place] [facility] cloNIDine 2018- Yes TK 1 T PO Uni vers 0.1 mg 5-13 BID ity of tablet 00:00: [facility] cloNIDine Yes TK 1 T PO Uni vers 0.1 mg 5-13 BID ity of tablet 00:00: [facility] cloNIDine Yes TK 1 T PO Uni vers 0.1 mg 5-13 BID ity of tablet 00:00: [facility] cloNIDine Yes TK 1 T PO Uni vers 0.1 mg 5-13 BID ity of tablet 00:00: [address] cloNIDine Yes TK 1 T PO Uni vers 0.1 mg 5-13 BID ity of tablet 00:00: [address] cloNIDine Yes TK 1 T PO Uni vers 0.1 mg 5-13 BID ity of tablet 00:00: [address] cloNIDine Yes TK 1 T PO Uni vers 0.1 mg 5-13 BID ity of tablet 00:00: [facility] cloNIDine Yes TK 1 T PO Uni vers 0.1 mg 5-13 BID ity of tablet 00:00: [address] cloNIDine Yes TK 1 T PO Uni vers 0.1 mg 5-13 BID ity of tablet 00:00: [address] cloNIDine Yes TK 1 T PO Uni vers 0.1 mg 5-13 BID ity of tablet 00:00: [facility] cloNIDine 2018- Yes TK 1 T PO Uni vers 0.1 mg 5-13 BID ity of tablet 00:00: [facility] cloNIDine Yes TK 1 T PO Uni vers 0.1 mg 5-13 BID ity of tablet 00:00: [address] cloNIDine 2018- Yes TK 1 T PO Uni vers 0.1 mg 5-13 BID ity of tablet 00:00: [address] cloNIDine Yes TK 1 T PO Uni vers 0.1 mg 5-13 BID ity of tablet 00:00: [address] cloNIDine 2018- Yes TK 1 T PO Uni vers 0.1 mg 5-13 BID ity of tablet 00:00: [address] cloNIDine Yes TK 1 T PO Uni vers 0.1 mg 5-13 BID ity of tablet 00:00: [facility] cloNIDine Yes TK 1 T PO Uni vers 0.1 mg 5-13 BID ity of tablet 00:00: [facility] cloNIDine Yes TK 1 T PO Uni vers 0.1 mg 5-13 BID ity of tablet 00:00: [facility] cloNIDine Yes TK 1 T PO Uni vers 0.1 mg 5-13 BID ity of tablet 00:00: [facility] cloNIDine Yes TK 1 T PO Uni vers 0.1 mg 5-13 BID ity of tablet 00:00: [facility] cloNIDine Yes TK 1 T PO Uni vers 0.1 mg 5-13 BID ity of tablet 00:00: [facility] cloNIDine Yes TK 1 T PO Uni vers 0.1 mg 5-13 BID ity of tablet 00:00: [facility] cloNIDine Yes TK 1 T PO Uni vers 0.1 mg 5-13 BID ity of tablet 00:00: [facility] cloNIDine Yes TK 1 T PO Uni vers 0.1 mg 5-13 BID ity of tablet 00:00: [facility] cloNIDine Yes TK 1 T PO Uni vers 0.1 mg 5-13 BID ity of tablet 00:00: [facility] cloNIDine Yes TK 1 T PO Uni vers 0.1 mg 5-13 BID ity of tablet 00:00: [facility] cloNIDine Yes TK 1 T PO Uni vers 0.1 mg 5-13 BID ity of tablet 00:00: [facility] cloNIDine Yes TK 1 T PO Uni vers 0.1 mg 5-13 BID ity of tablet 00:00: [facility] cloNIDine Yes TK 1 T PO Uni vers 0.1 mg 5-13 BID ity of tablet 00:00: [facility] cloNIDine Yes TK 1 T PO Uni vers 0.1 mg 5-13 BID ity of tablet 00:00: [address] cloNIDine Yes TK 1 T PO Uni vers 0.1 mg 5-13 BID ity of tablet 00:00: [facility] cloNIDine Yes TK 1 T PO Uni vers 0.1 mg 5-13 BID ity of tablet 00:00: [facility] cloNIDine Yes TK 1 T PO Uni vers 0.1 mg 5-13 BID ity of tablet 00:00: [facility] cloNIDine Yes TK 1 T PO Uni vers 0.1 mg 5-13 BID ity of tablet 00:00: [facility] cloNIDine Yes TK 1 T PO Uni vers 0.1 mg 5-13 BID ity of tablet 00:00: [facility] cloNIDine Yes TK 1 T PO Uni vers 0.1 mg 5-13 BID ity of tablet 00:00: [facility] cloNIDine Yes TK 1 T PO Uni vers 0.1 mg 5-13 BID ity of tablet 00:00: [facility] cloNIDine Yes TK 1 T PO Uni vers 0.1 mg 5-13 BID ity of tablet 00:00: [facility] cloNIDine Yes TK 1 T PO Uni vers 0.1 mg 5-13 BID ity of tablet 00:00: [place] [facility] cloNIDine Yes TK 1 T PO Uni vers 0.1 mg 5-13 BID ity of tablet 00:00: [facility] cloNIDine Yes TK 1 T PO Uni vers 0.1 mg 5-13 BID ity of tablet 00:00: [facility] cloNIDine Yes TK 1 T PO Uni vers 0.1 mg 5-13 BID ity of tablet 00:00: [facility] cloNIDine Yes TK 1 T PO Uni vers 0.1 mg 5-13 BID ity of tablet 00:00: [facility] cloNIDine Yes TK 1 T PO Uni vers 0.1 mg 5-13 BID ity of tablet 00:00: [place] [facility] cloNIDine Yes TK 1 T PO Uni vers 0.1 mg 5-13 BID ity of tablet 00:00: [address] cloNIDine Yes TK 1 T PO Uni vers 0.1 mg 5-13 BID ity of tablet 00:00: [address] cloNIDine Yes TK 1 T PO Uni vers 0.1 mg 5-13 BID ity of tablet 00:00: [facility] cloNIDine Yes TK 1 T PO Uni vers 0.1 mg 5-13 BID ity of tablet 00:00: [facility] cloNIDine Yes TK 1 T PO Uni vers 0.1 mg 5-13 BID ity of tablet 00:00: [facility] cloNIDine Yes TK 1 T PO Uni vers 0.1 mg 5-13 BID ity of tablet 00:00: [facility] cloNIDine Yes TK 1 T PO Uni vers 0.1 mg 5-13 BID ity of tablet 00:00: [facility] cloNIDine Yes TK 1 T PO Uni vers 0.1 mg 5-13 BID ity of tablet 00:00: [address] cloNIDine 2020- No TK 1 T PO Un brian 0.1 mg 5-13 -20 BID ity of tablet 00:00: 00:00 [place] 00 :00 [facility] hydrALAZINE Yes TK 1 T PO U nivers 50 mg 4-29 TID WF ity of tablet 00:00: [place] [facility] hydrALAZINE Yes TK 1 T PO U nivers 50 mg 4-29 TID WF ity of tablet 00:00: [place] [facility] hydrALAZINE Yes TK 1 T PO U nivers 50 mg 4-29 TID WF ity of tablet 00:00: [place] [facility] hydrALAZINE Yes TK 1 T PO U nivers 50 mg 4-29 TID WF ity of tablet 00:00: [facility] hydrALAZINE Yes TK 1 T PO U nivers 50 mg 4-29 TID WF ity of tablet 00:00: [place] [facility] hydrALAZINE Yes TK 1 T PO U nivers 50 mg 4-29 TID WF ity of tablet 00:00: [place] [facility] hydrALAZINE Yes TK 1 T PO U nivers 50 mg 4-29 TID WF ity of tablet 00:00: [place] [facility] hydrALAZINE Yes TK 1 T PO U nivers 50 mg 4-29 TID WF ity of tablet 00:00: [address] hydrALAZINE Yes TK 1 T PO U nivers 50 mg 4-29 TID WF ity of tablet 00:00: [place] [id number] [facility] hydrALAZINE 2019-0 Yes TK 1 T PO U nivers 50 mg 4-29 TID WF ity of tablet 00:00: [place] [facility] hydrALAZINE 0 Yes TK 1 T PO U nivers 50 mg 4-29 TID WF ity of tablet 00:00: [place] [facility] hydrALAZINE 0 Yes TK 1 T PO U nivers 50 mg 4-29 TID WF ity of tablet 00:00: [place] [facility] hydrALAZINE 0 Yes TK 1 T PO U nivers 50 mg 4-29 TID WF ity of tablet 00:00: [place] [facility] hydrALAZINE 0 Yes TK 1 T PO U nivers 50 mg 4-29 TID WF ity of tablet 00:00: [address] hydrALAZINE 0 Yes TK 1 T PO U nivers 50 mg 4-29 TID WF ity of tablet 00:00: [address] hydrALAZINE [id number] Yes TK 1 T PO U nivers 50 mg 4-29 TID WF ity of tablet 00:00: [place] [facility] hydrALAZINE 0 Yes TK 1 T PO U nivers 50 mg 4-29 TID WF ity of tablet 00:00: [address] hydrALAZINE 2018-0 Yes TK 1 T PO U nivers 50 mg 4-29 TID WF ity of tablet 00:00: [address] hydrALAZINE 0 Yes TK 1 T PO U nivers 50 mg 4-29 TID WF ity of tablet 00:00: [facility] hydrALAZINE 2019-0 Yes TK 1 T PO U nivers 50 mg 4-29 TID WF ity of tablet 00:00: [place] [facility] hydrALAZINE 2018-0 Yes TK 1 T PO U nivers 50 mg 4-29 TID WF ity of tablet 00:00: [place] [facility] hydrALAZINE 2018-0 Yes TK 1 T PO U nivers 50 mg 4-29 TID WF ity of tablet 00:00: [place] [facility] hydrALAZINE 2018-0 Yes TK 1 T PO U nivers 50 mg 4-29 TID WF ity of tablet 00:00: [place] [facility] hydrALAZINE 2019-0 Yes TK 1 T PO U nivers 50 mg 4-29 TID WF ity of tablet 00:00: [place] [facility] hydrALAZINE 20190 Yes TK 1 T PO U nivers 50 mg 4-29 TID WF ity of tablet 00:00: [facility] hydrALAZINE Yes TK 1 T PO U nivers 50 mg 4-29 TID WF ity of tablet 00:00: [facility] hydrALAZINE 0 Yes TK 1 T PO U nivers 50 mg 4-29 TID WF ity of tablet 00:00: [facility] hydrALAZINE Yes TK 1 T PO U nivers 50 mg 4-29 TID WF ity of tablet 00:00: [facility] hydrALAZINE Yes TK 1 T PO U nivers 50 mg 4-29 TID WF ity of tablet 00:00: [facility] hydrALAZINE 20190 Yes TK 1 T PO U nivers 50 mg 4-29 TID WF ity of tablet 00:00: [facility] hydrALAZINE Yes TK 1 T PO U nivers 50 mg 4-29 TID WF ity of tablet 00:00: [address] hydrALAZINE 0 Yes TK 1 T PO U nivers 50 mg 4-29 TID WF ity of tablet 00:00: [address] hydrALAZINE 0 Yes TK 1 T PO U nivers 50 mg 4-29 TID WF ity of tablet 00:00: [place] [facility] hydrALAZINE 20190 Yes TK 1 T PO U nivers 50 mg 4-29 TID WF ity of tablet 00:00: [facility] hydrALAZINE 0 Yes TK 1 T PO U nivers 50 mg 4-29 TID WF ity of tablet 00:00: [facility] hydrALAZINE 2018-0 Yes TK 1 T PO U nivers 50 mg 4-29 TID WF ity of tablet 00:00: [address] hydrALAZINE 0 Yes TK 1 T PO U nivers 50 mg 4-29 TID WF ity of tablet 00:00: [address] hydrALAZINE 0 Yes TK 1 T PO U nivers 50 mg 4-29 TID WF ity of tablet 00:00: [facility] hydrALAZINE 2019 Yes TK 1 T PO U nivers 50 mg 4-29 TID WF ity of tablet 00:00: [facility] hydrALAZINE Yes TK 1 T PO U nivers 50 mg 4-29 TID WF ity of tablet 00:00: [facility] hydrALAZINE Yes TK 1 T PO U nivers 50 mg 4-29 TID WF ity of tablet 00:00: [facility] hydrALAZINE Yes TK 1 T PO U nivers 50 mg 4-29 TID WF ity of tablet 00:00: [address] hydrALAZINE Yes TK 1 T PO U nivers 50 mg 4-29 TID WF ity of tablet 00:00: [address] hydrALAZINE Yes TK 1 T PO U nivers 50 mg 4-29 TID WF ity of tablet 00:00: [facility] hydrALAZINE Yes TK 1 T PO U nivers 50 mg 4-29 TID WF ity of tablet 00:00: [facility] hydrALAZINE Yes TK 1 T PO U nivers 50 mg 4-29 TID WF ity of tablet 00:00: [address] hydrALAZINE Yes TK 1 T PO U nivers 50 mg 4-29 TID WF ity of tablet 00:00: [address] hydrALAZINE Yes TK 1 T PO U nivers 50 mg 4-29 TID WF ity of tablet 00:00: [facility] hydrALAZINE Yes TK 1 T PO U nivers 50 mg 4-29 TID WF ity of tablet 00:00: [address] hydrALAZINE 0 Yes TK 1 T PO U nivers 50 mg 4-29 TID WF ity of tablet 00:00: [facility] hydrALAZINE Yes TK 1 T PO U nivers 50 mg 4-29 TID WF ity of tablet 00:00: [address] hydrALAZINE Yes TK 1 T PO U nivers 50 mg 4-29 TID WF ity of tablet 00:00: [place] [facility] hydrALAZINE 2019- Yes TK 1 T PO U nivers 50 mg 4-29 TID WF ity of tablet 00:00: [place] [facility] hydrALAZINE 2019-0 2020- No TK 1 T PO Univers 50 mg 4-29 02-20 TID WF ity of tablet 00:00: 00:00 [place] 00 : Medical Branch furosemide 2019-0 Yes TK 1 T PO Un brian 20 mg 4-12 QD ity of tablet 00:00: [place] [facility] furosemide 2018- Yes TK 1 T PO Un brian 20 mg 4-12 QD ity of tablet 00:00: [place] [facility] furosemide 2019- Yes TK 1 T PO Un brian 20 mg 4-12 QD ity of tablet 00:00: [place] [facility] furosemide 2018- Yes TK 1 T PO Un brian 20 mg 4-12 QD ity of tablet 00:00: [place] [facility] furosemide 2019- Yes TK 1 T PO Un brian 20 mg 4-12 QD ity of tablet 00:00: [place] [facility] furosemide 2019- Yes TK 1 T PO Un brian 20 mg 4-12 QD ity of tablet 00:00: [place] [facility] furosemide 2019-0 Yes TK 1 T PO Un brian 20 mg 4-12 QD ity of tablet 00:00: [place] [facility] furosemide 2019-0 Yes TK 1 T PO Un brian 20 mg 4-12 QD ity of tablet 00:00: [place] [facility] furosemide 2019-0 Yes TK 1 T PO Un brian 20 mg 4-12 QD ity of tablet 00:00: [place] [facility] furosemide 2019-0 Yes TK 1 T PO Un brian 20 mg 4-12 QD ity of tablet 00:00: [place] [facility] furosemide 2019-0 Yes TK 1 T PO Un brian 20 mg 4-12 QD ity of tablet 00:00: [place] [facility] furosemide 2019-0 Yes TK 1 T PO Un brian 20 mg 4-12 QD ity of tablet 00:00: [place] [facility] furosemide 2019-0 Yes TK 1 T PO Un brian 20 mg 4-12 QD ity of tablet 00:00: [place] [facility] furosemide 2019-0 Yes TK 1 T PO Un brian 20 mg 4-12 QD ity of tablet 00:00: [facility] furosemide 2019-0 Yes TK 1 T PO Un brian 20 mg 4-12 QD ity of tablet 00:00: [facility] furosemide 2019-0 Yes TK 1 T PO Un brian 20 mg 4-12 QD ity of tablet 00:00: [facility] furosemide 2019-0 Yes TK 1 T PO Un brian 20 mg 4-12 QD ity of tablet 00:00: [place] [facility] furosemide 2019-0 Yes TK 1 T PO Un brian 20 mg 4-12 QD ity of tablet 00:00: [facility] furosemide 2019- Yes TK 1 T PO Un brian 20 mg 4-12 QD ity of tablet 00:00: [facility] furosemide 2019- Yes TK 1 T PO Un brian 20 mg 4-12 QD ity of tablet 00:00: [facility] furosemide 2018- Yes TK 1 T PO Un brian 20 mg 4-12 QD ity of tablet 00:00: [facility] furosemide 2019-0 Yes TK 1 T PO Un brian 20 mg 4-12 QD ity of tablet 00:00: [place] [facility] furosemide 2019-0 Yes TK 1 T PO Un brian 20 mg 4-12 QD ity of tablet 00:00: [place] [facility] furosemide 2019-0 Yes TK 1 T PO Un brian 20 mg 4-12 QD ity of tablet 00:00: [facility] furosemide 2019-0 Yes TK 1 T PO Un brian 20 mg 4-12 QD ity of tablet 00:00: [place] [facility] furosemide 2019-0 Yes TK 1 T PO Un brian 20 mg 4-12 QD ity of tablet 00:00: [place] [facility] furosemide 2019-0 Yes TK 1 T PO Un brian 20 mg 4-12 QD ity of tablet 00:00: [place] [facility] furosemide 2019-0 Yes TK 1 T PO Un brian 20 mg 4-12 QD ity of tablet 00:00: [place] [facility] furosemide 2019-0 Yes TK 1 T PO Un brian 20 mg 4-12 QD ity of tablet 00:00: [address] Branch furosemide 2019-0 Yes TK 1 T PO Un brian 20 mg 4-12 QD ity of tablet 00:00: [facility] furosemide 2019-0 Yes TK 1 T PO Un brian 20 mg 4-12 QD ity of tablet 00:00: [place] [facility] furosemide 2019-0 Yes TK 1 T PO Un brian 20 mg 4-12 QD ity of tablet 00:00: [facility] furosemide 2019-0 Yes TK 1 T PO Un brian 20 mg 4-12 QD ity of tablet 00:00: [place] [facility] furosemide 2019-0 Yes TK 1 T PO Un brian 20 mg 4-12 QD ity of tablet 00:00: [place] [facility] furosemide 2019-0 Yes TK 1 T PO Un brian 20 mg 4-12 QD ity of tablet 00:00: [facility] furosemide 2019-0 Yes TK 1 T PO Un brian 20 mg 4-12 QD ity of tablet 00:00: [facility] furosemide 2019-0 Yes TK 1 T PO Un brian 20 mg 4-12 QD ity of tablet 00:00: [facility] furosemide 2019-0 Yes TK 1 T PO Un brian 20 mg 4-12 QD ity of tablet 00:00: [place] [facility] furosemide 2019-0 Yes TK 1 T PO Un brian 20 mg 4-12 QD ity of tablet 00:00: [facility] furosemide 2019-0 Yes TK 1 T PO Un brian 20 mg 4-12 QD ity of tablet 00:00: [facility] furosemide 2019-0 Yes TK 1 T PO Un brian 20 mg 4-12 QD ity of tablet 00:00: [facility] furosemide 2019-0 Yes TK 1 T PO Un brian 20 mg 4-12 QD ity of tablet 00:00: [place] [facility] furosemide 2019-0 Yes TK 1 T PO Un brian 20 mg 4-12 QD ity of tablet 00:00: [facility] furosemide 2019-0 Yes TK 1 T PO Un brian 20 mg 4-12 QD ity of tablet 00:00: [facility] furosemide 2019-0 Yes TK 1 T PO Un brian 20 mg 4-12 QD ity of tablet 00:00: [facility] furosemide 2019-0 Yes TK 1 T PO Un brian 20 mg 4-12 QD ity of tablet 00:00: [place] [facility] furosemide 2019-0 Yes TK 1 T PO Un brian 20 mg 4-12 QD ity of tablet 00:00: [facility] Branch furosemide 2019-0 Yes TK 1 T PO Un brian 20 mg 4-12 QD ity of tablet 00:00: [facility] furosemide 2019- Yes TK 1 T PO Un brian 20 mg 4-12 QD ity of tablet 00:00: [facility] furosemide 2019- Yes TK 1 T PO Un brian 20 mg 4-12 QD ity of tablet 00:00: [facility] furosemide 2019- Yes TK 1 T PO Un brian 20 mg 4-12 QD ity of tablet 00:00: [facility] furosemide 2019- Yes TK 1 T PO Un brian 20 mg 4-12 QD ity of tablet 00:00: [facility] furosemide 2019- Yes TK 1 T PO Un brian 20 mg 4-12 QD ity of tablet 00:00: [facility] furosemide 2018- Yes TK 1 T PO Un brian 20 mg 4-12 QD ity of tablet 00:00: [facility] furosemide 2019- Yes TK 1 T PO Un brian 20 mg 4-12 QD ity of tablet 00:00: [facility] furosemide 2019- Yes TK 1 T PO Un brian 20 mg 4-12 QD ity of tablet 00:00: [facility] furosemide 2019- Yes TK 1 T PO Un brian 20 mg 4-12 QD ity of tablet 00:00: [facility] furosemide 2019- Yes TK 1 T PO Un brian 20 mg 4-12 QD ity of tablet 00:00: [facility] furosemide 2019-0 Yes TK 1 T PO Un brian 20 mg 4-12 QD ity of tablet 00:00: [place] [facility] furosemide 2019-0 Yes TK 1 T PO Un brian 20 mg 4-12 QD ity of tablet 00:00: [facility] furosemide 2019- Yes TK 1 T PO Un brian 20 mg 4-12 QD ity of tablet 00:00: [facility] furosemide 2019- Yes TK 1 T PO Un brian 20 mg 4-12 QD ity of tablet 00:00: [facility] furosemide 2018- Yes TK 1 T PO Un brian 20 mg 4-12 QD ity of tablet 00:00: [facility] furosemide 2019-0 2021- No TK 1 T PO U nivers 20 mg 4-12 06-11 QD ity of tablet 00:00: 00:00 [place] 00 :00 [facility] atenolol 25 2018-0 Yes Univer s mg tablet 06-21 ity of 00:00: [place] 00 [facility] atenolol 25 2018-0 Yes Univer s mg tablet 8 ity of 00:00: [place] 00 [facility] atenolol 25 2018-0 Yes Univer s mg tablet 8 ity of 00:00: [place] [facility] atenolol 25 2018-0 Yes Univer s mg tablet 06-21 ity of 00:00: [place] 00 [facility] atenolol 25 2018-0 Yes Univer s mg tablet 06-21 ity of 00:00: [place] [facility] atenolol 25 2018-0 Yes Univer s mg tablet 06-21 ity of 00:00: [place] 00 [facility] atenolol 25 2018-0 Yes Univer s mg tablet 06-21 ity of 00:00: [place] 00 [facility] atenolol 25 2018-0 Yes Univer s mg tablet 06-21 ity of 00:00: [place] 00 [facility] atenolol 25 2018-0 Yes Univer s mg tablet 06-21 ity of 00:00: [place] 00 [facility] atenolol 25 2018-0 Yes Univer s mg tablet 06-21 ity of 00:00: [place] 00 [facility] atenolol 25 2018-0 Yes Univer s mg tablet 06-21 ity of 00:00: [place] 00 [facility] atenolol 25 2018-0 Yes Univer s mg tablet 06-21 ity of 00:00: [place] 00 [facility] atenolol 25 2018-0 Yes Univer s mg tablet 06-21 ity of 00:00: [place] 00 [facility] atenolol 25 2018-0 Yes Univer s mg tablet 06-21 ity of 00:00: [place] 00 [facility] atenolol 25 2018-0 Yes Univer s mg tablet 8 ity of 00:00: [place] 00 [facility] atenolol 25 2018-0 Yes Univer s mg tablet 8 ity of 00:00: [place] 00 [facility] atenolol 25 2018-0 Yes Univer s mg tablet 828 ity of 00:00: [place] 00 [facility] atenolol 25 2018-0 2020- No Unive rs mg tablet 06-21 ity of 00:00: 00:00 [place] 00 : [facility] finasteride 2018 Yes TK 1 T PO U nivers 5 mg tablet 8-23 QD ity of 00:00: [facility] finasteride Yes TK 1 T PO U nivers 5 mg tablet 8-23 QD ity of 00:: [facility] finasteride Yes TK 1 T PO U nivers 5 mg tablet 8-23 QD ity of 00:00: [facility] finasteride Yes TK 1 T PO U nivers 5 mg tablet 8-23 QD ity of :: [facility] finasteride Yes TK 1 T PO U nivers 5 mg tablet 8-23 QD ity of 00:00: [facility] finasteride Yes TK 1 T PO U nivers 5 mg tablet 8-23 QD ity of 00:: [facility] finasteride Yes TK 1 T PO U nivers 5 mg tablet 8-23 QD ity of 00:00: [facility] finasteride Yes TK 1 T PO U nivers 5 mg tablet 8-23 QD ity of :00: [facility] finasteride Yes TK 1 T PO U nivers 5 mg tablet 8-23 QD ity of 00:00: [facility] finasteride Yes TK 1 T PO U nivers 5 mg tablet 8-23 QD ity of 00:00: [facility] finasteride 2018 Yes TK 1 T PO U nivers 5 mg tablet 8-23 QD ity of 00:00: [facility] finasteride Yes TK 1 T PO U nivers 5 mg tablet 8-23 QD ity of 00:00: [facility] finasteride Yes TK 1 T PO U nivers 5 mg tablet 8-23 QD ity of 00:00: [facility] finasteride Yes TK 1 T PO U nivers 5 mg tablet 8-23 QD ity of 00:00: [facility] finasteride Yes TK 1 T PO U nivers 5 mg tablet 8-23 QD ity of 00:00: [facility] finasteride 2018 Yes TK 1 T PO U nivers 5 mg tablet 8-23 QD ity of 00:00: [facility] finasteride 2018 Yes TK 1 T PO U nivers 5 mg tablet 8-23 QD ity of 00:00: [facility] finasteride Yes TK 1 T PO U nivers 5 mg tablet 8-23 QD ity of 00:00: [facility] finasteride Yes TK 1 T PO U nivers 5 mg tablet 8-23 QD ity of 00:00: [facility] finasteride Yes TK 1 T PO U nivers 5 mg tablet 8-23 QD ity of 00:: [facility] finasteride Yes TK 1 T PO U nivers 5 mg tablet 8-23 QD ity of 00:: [facility] finasteride Yes TK 1 T PO U nivers 5 mg tablet 8-23 QD ity of 00:: [facility] finasteride Yes TK 1 T PO U nivers 5 mg tablet 8-23 QD ity of 00:00: [facility] finasteride Yes TK 1 T PO U nivers 5 mg tablet 8-23 QD ity of 00:: [facility] finasteride Yes TK 1 T PO U nivers 5 mg tablet 8-23 QD ity of 00:00: [facility] finasteride 2018 Yes TK 1 T PO U nivers 5 mg tablet 8-23 QD ity of 00:00: [facility] finasteride Yes TK 1 T PO U nivers 5 mg tablet 8-23 QD ity of 00:00: [facility] finasteride Yes TK 1 T PO U nivers 5 mg tablet 8-23 QD ity of 00:00: [facility] finasteride Yes TK 1 T PO U nivers 5 mg tablet 8-23 QD ity of 00:00: [facility] finasteride Yes TK 1 T PO U nivers 5 mg tablet 8-23 QD ity of 00:00: [place] [facility] finasteride Yes TK 1 T PO U nivers 5 mg tablet 8-23 QD ity of 00:00: [facility] finasteride Yes TK 1 T PO U nivers 5 mg tablet 8-23 QD ity of 00:00: [facility] finasteride Yes TK 1 T PO U nivers 5 mg tablet 8-23 QD ity of 00:00: [facility] finasteride Yes TK 1 T PO U nivers 5 mg tablet 8-23 QD ity of 00:00: [facility] finasteride Yes TK 1 T PO U nivers 5 mg tablet 8-23 QD ity of 00:00: [facility] finasteride Yes TK 1 T PO U nivers 5 mg tablet 8-23 QD ity of 00:00: [facility] finasteride Yes TK 1 T PO U nivers 5 mg tablet 8-23 QD ity of 00:00: [facility] finasteride Yes TK 1 T PO U nivers 5 mg tablet 8-23 QD ity of 00:00: [facility] finasteride Yes TK 1 T PO U nivers 5 mg tablet 8-23 QD ity of 00:00: [facility] finasteride Yes TK 1 T PO U nivers 5 mg tablet 8-23 QD ity of 00:00: [facility] finasteride Yes TK 1 T PO U nivers 5 mg tablet 8-23 QD ity of 00:00: [facility] finasteride Yes TK 1 T PO U nivers 5 mg tablet 8-23 QD ity of 00:00: [facility] finasteride Yes TK 1 T PO U nivers 5 mg tablet 8-23 QD ity of 00:00: [facility] finasteride Yes TK 1 T PO U nivers 5 mg tablet 8-23 QD ity of 00:00: [facility] finasteride Yes TK 1 T PO U nivers 5 mg tablet 8-23 QD ity of 00:00: [facility] finasteride Yes TK 1 T PO U nivers 5 mg tablet 8-23 QD ity of 00:00: [facility] finasteride 2018 Yes TK 1 T PO U nivers 5 mg tablet 8-23 QD ity of 00:00: [facility] finasteride 2018 Yes TK 1 T PO U nivers 5 mg tablet 8-23 QD ity of 00:00: [facility] finasteride Yes TK 1 T PO U nivers 5 mg tablet 8-23 QD ity of 00:00: [facility] finasteride 2018 Yes TK 1 T PO U nivers 5 mg tablet 8-23 QD ity of 00:00: [facility] finasteride Yes TK 1 T PO U nivers 5 mg tablet 8-23 QD ity of :: [facility] finasteride Yes TK 1 T PO U nivers 5 mg tablet 8-23 QD ity of 00:: [facility] finasteride Yes TK 1 T PO U nivers 5 mg tablet 8-23 QD ity of 00:: [facility] finasteride Yes TK 1 T PO U nivers 5 mg tablet 8-23 QD ity of 00:: [facility] finasteride Yes TK 1 T PO U nivers 5 mg tablet 8-23 QD ity of 00:00: [facility] finasteride Yes TK 1 T PO U nivers 5 mg tablet 8-23 QD ity of 00:00: [facility] finasteride 2018 Yes TK 1 T PO U nivers 5 mg tablet 8-23 QD ity of 00:00: [facility] finasteride 2018 Yes TK 1 T PO U nivers 5 mg tablet 8-23 QD ity of 00:00: [facility] finasteride 2018 Yes TK 1 T PO U nivers 5 mg tablet 8-23 QD ity of 00:00: [facility] finasteride Yes TK 1 T PO U nivers 5 mg tablet 8-23 QD ity of 00:00: [facility] finasteride Yes TK 1 T PO U nivers 5 mg tablet 8-23 QD ity of 00:00: [facility] finasteride Yes TK 1 T PO U nivers 5 mg tablet 8-23 QD ity of 00:00: [place] 00 [facility] finasteride 2018-0 Yes TK 1 T PO U nivers 5 mg tablet 8-23 QD ity of 00:00: [place] 00 [facility] finasteride 2018-0 Yes TK 1 T PO U nivers 5 mg tablet 8-23 QD ity of 00:00: [place] 00 [facility] finasteride 2018-0 Yes TK 1 T PO U nivers 5 mg tablet 8-23 QD ity of 00:00: [place] 00 [facility] triamcinolo 2016-0 Yes Univer s ne 5-09 ity of acetonide 00:00: [place] (KENALOG) 00 Medical 0.1 % Branch ointment triamcinolo 2016-0 Yes Univer s ne 5-09 ity of acetonide 00:00: [place] (KENALOG) 00 Medical 0.1 % Branch ointment triamcinolo 2016-0 Yes Univer s ne 5-09 ity of acetonide 00:00: [place] (KENALOG) 00 Medical 0.1 % Branch ointment triamcinolo 2016-0 Yes Univer s ne 5-09 ity of acetonide 00:00: [place] (KENALOG) 00 Medical 0.1 % Branch ointment triamcinolo 2016-0 Yes Univer s ne 5-09 ity of acetonide 00:00: [place] (KENALOG) 00 Medical 0.1 % Branch ointment triamcinolo 2016-0 Yes Univer s ne 5-09 ity of acetonide 00:00: [place] (KENALOG) 00 Medical 0.1 % Branch ointment triamcinolo 2016-0 Yes Univer s ne 5-09 ity of acetonide 00:00: [place] (KENALOG) 00 Medical 0.1 % Branch ointment triamcinolo 2016-0 Yes Univer s ne 5-09 ity of acetonide 00:00: [place] (KENALOG) 00 Medical 0.1 % Branch ointment triamcinolo 2016-0 Yes Univer s ne 5-09 ity of acetonide 00:00: [place] (KENALOG) 00 Medical 0.1 % Branch ointment triamcinolo 2016-0 Yes Univer s ne 5-09 ity of acetonide 00:00: [place] (KENALOG) 00 Medical 0.1 % Branch ointment triamcinolo 0 Yes Univer s ne 5-09 ity of acetonide 00:00: [place] (KENALOG) 00 Medical 0.1 % Branch ointment triamcinolo 0 Yes Univer s ne 5-09 ity of acetonide 00:00: [place] (KENALOG) 00 Medical 0.1 % Branch ointment triamcinolo 0 Yes Univer s ne 5-09 ity of acetonide 00:00: [place] (KENALOG) 00 Medical 0.1 % Branch ointment triamcinolo 0 Yes Univer s ne 5-09 ity of acetonide 00:00: [place] (KENALOG) 00 Medical 0.1 % Branch ointment triamcinolo Yes Univer s ne 5-09 ity of acetonide 00:00: [place] (KENALOG) 00 Medical 0.1 % Branch ointment triamcinolo 0 Yes Univer s ne 5-09 ity of acetonide 00:00: [place] (KENALOG) 00 Medical 0.1 % Branch ointment triamcinolo 0 Yes Univer s ne 5-09 ity of acetonide 00:00: [place] (KENALOG) 00 Medical 0.1 % Branch ointment triamcinolo 2020- No Unive rs ne 03-02 06-23 ity of acetonide 00:00: 00:00 [place] (KENALOG) 00 :00 Medical 0.1 % Branch ointment niacin ER Yes [facility] (NIASPAN 5-02 ity of EXTENDED-RE 00:00: [place] LEASE) 00 Medical 1,000 mg SR Branch tablet niacin ER Yes [facility] (NIASPAN 5-02 ity of EXTENDED-RE 00:00: [place] LEASE) 00 Medical 1,000 mg SR Branch tablet niacin ER Yes [facility] (NIASPAN 5-02 ity of EXTENDED-RE 00:00: [place] LEASE) 00 Medical 1,000 mg SR Branch tablet niacin ER Yes Univers (NIASPAN 5-02 ity of EXTENDED-RE 00:00: [place] LEASE) 00 Medical 1,000 mg SR Branch tablet niacin ER Yes Univers (NIASPAN 5-02 ity of EXTENDED-RE 00:00: [place] LEASE) 00 Medical 1,000 mg SR Branch tablet niacin ER Yes Univers (NIASPAN 5-02 ity of EXTENDED-RE 00:00: [place] LEASE) 00 Medical 1,000 mg SR Branch tablet niacin ER Yes Univers (NIASPAN 5- ity of EXTENDED-RE 00:00: [place] LEASE) 00 Medical 1,000 mg SR Branch tablet niacin ER Yes Univers (NIASPAN 5- ity of EXTENDED-RE 00:00: [place] LEASE) 00 Medical 1,000 mg SR Branch tablet niacin ER Yes Univers (NIASPAN 5- ity of EXTENDED-RE 00:00: [place] LEASE) 00 Medical 1,000 mg SR Branch tablet niacin ER Yes Univers (NIASPAN 5- ity of EXTENDED-RE 00:00: [place] LEASE) 00 Medical 1,000 mg SR Branch tablet niacin ER 2020- No Univers (NIASPAN 5 03-06 ity of EXTENDED-RE 00:00: 00:00 [place] LEASE) 00 :00 Medical 1,000 mg SR Branch tablet losartan Yes Univers (COZAAR) 3-18 ity of 100 mg 00:00: [place] tablet 00 Medical Branch losartan Yes Univers (COZAAR) 3-18 ity of 100 mg 00:00: [place] tablet 00 Medical Branch losartan Yes Univers (COZAAR) 3-18 ity of 100 mg 00:00: [place] tablet 00 Medical Branch losartan Yes Univers (COZAAR) 3-18 ity of 100 mg 00:00: [place] tablet 00 Medical Branch losartan 0 Yes Univers (COZAAR) 3-18 ity of 100 mg 00:00: [place] tablet 00 Medical Branch losartan Yes Univers (COZAAR) 3-18 ity of 100 mg 00:00: [place] tablet 00 Medical Branch losartan 0 Yes Univers (COZAAR) 3-18 ity of 100 mg 00:00: [place] tablet 00 Medical Branch losartan 0 Yes Univers (COZAAR) 3-18 ity of 100 mg 00:00: [place] tablet 00 Medical Branch losartan 0 Yes Univers (COZAAR) 3-18 ity of 100 mg 00:00: [place] tablet 00 Medical Branch losartan 2015-0 Yes Univers (COZAAR) 3-18 ity of 100 mg 00:00: [place] tablet 00 Medical Branch losartan 2015-0 Yes Univers (COZAAR) 3-18 ity of 100 mg 00:00: [place] tablet 00 Medical Branch losartan 2016-0 Yes Univers (COZAAR) 3-18 ity of 100 mg 00:00: [place] tablet 00 Medical Branch losartan 2015-0 Yes Univers (COZAAR) 3-18 ity of 100 mg 00:00: [place] tablet 00 Medical [facility] losartan 2015-0 Yes 100mg Take 100 Univ ers (COZAAR) 3-18 mg by ity of 100 mg 00:00: mouth at [place] tablet 00 bedtime. Medical Branch losartan 2015-0 Yes 100mg Take 100 Univ ers (COZAAR) 3-18 mg by ity of 100 mg 00:00: mouth at [place] tablet 00 bedtime. Medical Branch losartan 0 Yes [facility] (COZAAR) 3-18 ity of 100 mg 00:00: [place] tablet 00 Medical [facility] losartan 2015-0 Yes [facility] (COZAAR) 3-18 ity of 100 mg 00:00: [place] tablet 00 Medical Branch losartan 2015-0 Yes Univers (COZAAR) 3-18 ity of 100 mg 00:00: [place] tablet 00 Medical Branch losartan 2015-0 Yes [facility] (COZAAR) 3-18 ity of 100 mg 00:00: [place] tablet 00 Medical Branch losartan 2015-0 Yes [facility] (COZAAR) 3-18 ity of 100 mg 00:00: [place] tablet 00 Medical Branch losartan 2015-0 Yes [facility] (COZAAR) 3-18 ity of 100 mg 00:00: [place] tablet 00 Medical Branch losartan 2015-0 Yes [facility] (COZAAR) 3-18 ity of 100 mg 00:00: [place] tablet 00 Medical Branch losartan 2015-0 Yes [facility] (COZAAR) 3-18 ity of 100 mg 00:00: [place] tablet 00 Medical Branch losartan 2015-0 Yes [facility] (COZAAR) 3-18 ity of 100 mg 00:00: [place] tablet 00 Medical [facility] losartan 2015-0 Yes [facility] (COZAAR) 3-18 ity of 100 mg 00:00: [place] tablet 00 Medical Branch losartan 2015-0 Yes Univers (COZAAR) 3-18 ity of 100 mg 00:00: [place] tablet 00 Medical [facility] losartan 2016-0 Yes [facility] (COZAAR) 3-18 ity of 100 mg 00:00: [place] tablet 00 Medical Branch losartan 2016-0 Yes Univers (COZAAR) 3-18 ity of 100 mg 00:00: [place] tablet 00 Medical Branch losartan 2016-0 Yes Univers (COZAAR) 3-18 ity of 100 mg 00:00: [place] tablet 00 Medical [facility] losartan 2016-0 Yes Univers (COZAAR) 3-18 ity of 100 mg 00:00: [place] tablet 00 Medical Branch losartan 2016-0 Yes [facility] (COZAAR) 3-18 ity of 100 mg 00:00: [place] tablet 00 Medical Branch losartan 2016-0 Yes Univers (COZAAR) 3-18 ity of 100 mg 00:00: [place] tablet 00 Medical Branch losartan 2016-0 Yes Univers (COZAAR) 3-18 ity of 100 mg 00:00: [place] tablet 00 Medical Branch losartan 2016-0 Yes Univers (COZAAR) 3-18 ity of 100 mg 00:00: [place] tablet 00 Medical Branch losartan 2016-0 Yes Univers (COZAAR) 3-18 ity of 100 mg 00:00: [place] tablet 00 Medical Branch losartan 2016-0 Yes Univers (COZAAR) 3-18 ity of 100 mg 00:00: [place] tablet 00 Medical Branch losartan 2016-0 Yes [facility] (COZAAR) 3-18 ity of 100 mg 00:00: [place] tablet 00 Medical Branch losartan 2016-0 Yes [facility] (COZAAR) 3-18 ity of 100 mg 00:00: [place] tablet 00 Medical Branch losartan 2016-0 Yes [facility] (COZAAR) 3-18 ity of 100 mg 00:00: [place] tablet 00 Medical Branch losartan 2016-0 Yes [facility] (COZAAR) 3-18 ity of 100 mg 00:00: [place] tablet 00 Medical Branch losartan 2016-0 Yes [facility] (COZAAR) 3-18 ity of 100 mg 00:00: [place] tablet 00 Medical Branch losartan 2016-0 Yes [facility] (COZAAR) 3-18 ity of 100 mg 00:00: [place] tablet 00 Medical Branch losartan 2016-0 Yes [facility] (COZAAR) 3-18 ity of 100 mg 00:00: [place] tablet 00 Medical Branch losartan 2016-0 Yes [facility] (COZAAR) 3-18 ity of 100 mg 00:00: [place] tablet 00 Medical Branch losartan 0 Yes [facility] (COZAAR) 3-18 ity of 100 mg 00:00: [place] tablet 00 Medical Branch losartan 0 Yes Univers (COZAAR) 3-18 ity of 100 mg 00:00: [place] tablet 00 Medical Branch losartan 0 Yes Univers (COZAAR) 3-18 ity of 100 mg 00:00: [place] tablet 00 Medical Branch losartan 0 Yes Univers (COZAAR) 3-18 ity of 100 mg 00:00: [place] tablet 00 Medical Branch losartan 0 Yes Univers (COZAAR) 3-18 ity of 100 mg 00:00: [place] tablet 00 Medical Branch losartan 0 Yes Univers (COZAAR) 3-18 ity of 100 mg 00:00: [place] tablet 00 Medical Branch losartan 0 Yes Univers (COZAAR) 3-18 ity of 100 mg 00:00: [place] tablet 00 Medical Branch losartan 0 Yes [facility] (COZAAR) 3-18 ity of 100 mg 00:00: [place] tablet 00 Medical Branch losartan 0 Yes Univers (COZAAR) 3-18 ity of 100 mg 00:00: [place] tablet 00 Medical Branch losartan 0 1- No 100mg Take 100 Uni vers (COZAAR) 3-18 02-20 mg by ity of 100 mg 00:00: 00:00 mouth at [place] tablet 00 :00 bedtime. Medical Branch SYNTHROID Yes Univers 100 mcg 2-22 ity of tablet 00:00: [place] [facility] SYNTHROID 0 Yes Univers 100 mcg 2-22 ity of tablet 00:00: [place] [facility] SYNTHROID Yes Univers 100 mcg 2-22 ity of tablet 00:00: [place] [facility] SYNTHROID Yes Univers 100 mcg 2-22 ity of tablet 00:00: [place] [facility] SYNTHROID Yes Univers 100 mcg 2-22 ity of tablet 00:00: Medical Branch SYNTHROID Yes Univers 100 mcg 2-22 ity of tablet 00:00: [facility] Branch SYNTHROID Yes Univers 100 mcg 2-22 ity of tablet 00:00: Medical Branch SYNTHROID Yes Univers 100 mcg 2-22 ity of tablet 00:00: [place] 00 [facility] SYNTHROID 2016-0 Yes Univers 100 mcg 2-22 ity of tablet 00:00: [place] [id number] [facility] Branch SYNTHROID 2016-0 Yes Univers 100 mcg 2-22 ity of tablet 00:00: [place] [address] [facility] Branch SYNTHROID 2016-0 Yes Univers 100 mcg 2-22 ity of tablet 00:00: [place] [address] [facility] Branch SYNTHROID 2016-0 Yes Univers 100 mcg 2-22 ity of tablet 00:00: [place] [address] [facility] Branch SYNTHROID 2016-0 Yes Univers 100 mcg 2-22 ity of tablet 00:00: [place] [address] [facility] Branch SYNTHROID 2016-0 Yes Univers 100 mcg 2-22 ity of tablet 00:00: [place] [address] [facility] Branch SYNTHROID 2016-0 Yes Univers 100 mcg 2-22 ity of tablet 00:00: [place] [address] [facility] Branch SYNTHROID 2016-0 Yes Univers 100 mcg 2-22 ity of tablet 00:00: [place] [address] [facility] Branch SYNTHROID 2016-0 Yes Univers 100 mcg 2-22 ity of tablet 00:00: [place] [address] [facility] Branch SYNTHROID 2016-0 Yes Univers 100 mcg 2-22 ity of tablet 00:00: [place] [address] [facility] Branch SYNTHROID 2016-0 Yes Univers 100 mcg 2-22 ity of tablet 00:00: [place] [address] [facility] Branch SYNTHROID 2016-0 Yes Univers 100 mcg 2-22 ity of tablet 00:00: [place] [address] [facility] Branch SYNTHROID 2016-0 Yes Univers 100 mcg 2-22 ity of tablet 00:00: [place] [address] [facility] Branch SYNTHROID 2016-0 Yes Univers 100 mcg 2-22 ity of tablet 00:00: [place] [address] [facility] Branch SYNTHROID 2016-0 Yes Univers 100 mcg 2-22 ity of tablet 00:00: [place] [address] [facility] Branch SYNTHROID 2016-0 Yes Univers 100 mcg 2-22 ity of tablet 00:00: [place] [address] [facility] Branch SYNTHROID 2016-0 Yes Univers 100 mcg 2-22 ity of tablet 00:00: [place] [address] [facility] Branch SYNTHROID 2016-0 Yes Univers 100 mcg 2-22 ity of tablet 00:00: [place] [address] [facility] Branch SYNTHROID 2016-0 Yes [facility] 100 mcg 2-22 ity of tablet 00:00: [place] [address] [facility] SYNTHROID 2016-0 Yes [facility] 100 mcg 2-22 ity of tablet 00:00: [place] [address] [facility] Branch SYNTHROID 2016-0 Yes [facility] 100 mcg 2-22 ity of tablet 00:00: [place] [address] [facility] Branch SYNTHROID 2016-0 Yes [facility] 100 mcg 2-22 ity of tablet 00:00: [place] [address] [facility] SYNTHROID 2016-0 Yes Univers 100 mcg 2-22 ity of tablet 00:00: [place] [address] [facility] SYNTHROID 2016-0 Yes [facility] 100 mcg 2-22 ity of tablet 00:00: [place] [address] [facility] SYNTHROID 2016-0 Yes [facility] 100 mcg 2-22 ity of tablet 00:00: [place] [address] [facility] Branch SYNTHROID 2016-0 Yes [facility] 100 mcg 2-22 ity of tablet 00:00: [place] [address] [facility] SYNTHROID 2016-0 Yes [facility] 100 mcg 2-22 ity of tablet 00:00: [place] [address] [facility] Branch SYNTHROID 2016-0 Yes [facility] 100 mcg 2-22 ity of tablet 00:00: [place] [address] [facility] SYNTHROID 2016-0 Yes [facility] 100 mcg 2-22 ity of tablet 00:00: [place] [address] [facility] Branch SYNTHROID 2016-0 Yes [facility] 100 mcg 2-22 ity of tablet 00:00: [place] [address] [facility] SYNTHROID 2016-0 Yes [facility] 100 mcg 2-22 ity of tablet 00:00: [place] [address] [facility] Branch SYNTHROID 2016-0 Yes [facility] 100 mcg 2-22 ity of tablet 00:00: [place] [address] [facility] SYNTHROID 2016-0 Yes [facility] 100 mcg 2-22 ity of tablet 00:00: [place] [address] [facility] SYNTHROID 2016-0 Yes [facility] 100 mcg 2-22 ity of tablet 00:00: [place] [address] [facility] SYNTHROID 2016-0 Yes [facility] 100 mcg 2-22 ity of tablet 00:00: [place] [address] [facility] SYNTHROID 2016-0 Yes [facility] 100 mcg 2-22 ity of tablet 00:00: [place] [address] [facility] SYNTHROID 2016-0 Yes [facility] 100 mcg 2-22 ity of tablet 00:00: [place] [address] [facility] SYNTHROID 2016-0 Yes [facility] 100 mcg 2-22 ity of tablet 00:00: [place] [address] [facility] SYNTHROID 2016-0 Yes [facility] 100 mcg 2-22 ity of tablet 00:00: [place] [address] [facility] SYNTHROID 2016-0 Yes [facility] 100 mcg 2-22 ity of tablet 00:00: [place] [address] [facility] SYNTHROID 2016-0 Yes [facility] 100 mcg 2-22 ity of tablet 00:00: [place] [address] [facility] SYNTHROID 2016-0 Yes [facility] 100 mcg 2-22 ity of tablet 00:00: [place] [address] [facility] SYNTHROID 2016-0 Yes [facility] 100 mcg 2-22 ity of tablet 00:00: [place] [address] [facility] SYNTHROID 2016-0 Yes [facility] 100 mcg 2-22 ity of tablet 00:00: [place] [address] [facility] SYNTHROID 2016-0 Yes [facility] 100 mcg 2-22 ity of tablet 00:00: [place] [address] [facility] SYNTHROID 2016-0 Yes [facility] 100 mcg 2-22 ity of tablet 00:00: [place] [address] [facility] SYNTHROID 2016-0 Yes [facility] 100 mcg 2-22 ity of tablet 00:00: [place] [address] [facility] SYNTHROID 2016-0 Yes [facility] 100 mcg 2-22 ity of tablet 00:00: [place] [address] [facility] SYNTHROID 2016-0 Yes [facility] 100 mcg 2-22 ity of tablet 00:00: [place] [address] [facility] SYNTHROID 2016-0 Yes [facility] 100 mcg 2-22 ity of tablet 00:00: [place] [address] [facility] SYNTHROID 2016-0 Yes [facility] 100 mcg 2-22 ity of tablet 00:00: [place] [address] [facility] SYNTHROID 2016-0 Yes [facility] 100 mcg 2-22 ity of tablet 00:00: [place] [address] [facility] SYNTHROID 2016-0 Yes [facility] 100 mcg 2-22 ity of tablet 00:00: [place] [address] [facility] SYNTHROID 2016-0 Yes [facility] 100 mcg 2-22 ity of tablet 00:00: [place] [address] [facility] SYNTHROID 2016-0 Yes [facility] 100 mcg 2-22 ity of tablet 00:00: [place] [address] [facility] SYNTHROID 2016-0 2021- No [facility] 100 mcg 2-22 06-11 ity of tablet 00:00: 00:00 [place] 00 :00 [facility] guanFACINE 2016-0 Yes Univers (TENEX) 1 2-16 ity of mg tablet 00:00: [place] [address] [facility] guanFACINE 2016-0 Yes Univers (TENEX) 1 2-16 ity of mg tablet 00:00: [place] [address] [facility] guanFACINE 2016-0 Yes Univers (TENEX) 1 2-16 ity of mg tablet 00:00: [place] [address] [facility] guanFACINE 2016-0 Yes Univers (TENEX) 1 2-16 ity of mg tablet 00:00: [place] [address] [facility] guanFACINE 2016-0 Yes Univers (TENEX) 1 2-16 ity of mg tablet 00:00: [place] [address] [facility] guanFACINE 2016-0 Yes Univers (TENEX) 1 2-16 ity of mg tablet 00:00: [facility] guanFACINE 2016-0 Yes Univers (TENEX) 1 2-16 ity of mg tablet 00:00: [facility] guanFACINE 2016-0 Yes Univers (TENEX) 1 2-16 ity of mg tablet 00:00: [facility] guanFACINE 2016-0 Yes Univers (TENEX) 1 2-16 ity of mg tablet 00:00: [facility] guanFACINE 2016-0 Yes Univers (TENEX) 1 2-16 ity of mg tablet 00:00: [facility] guanFACINE 2016-0 Yes Univers (TENEX) 1 2-16 ity of mg tablet 00:00: [facility] 2016-0 Yes Univers (TENEX) 1 2-16 ity of mg tablet 00:00: [facility] 2016-0 Yes Univers (TENEX) 1 2-16 ity of mg tablet 00:00: [facility] guanFACINE 2016-0 Yes Univers (TENEX) 1 2-16 ity of mg tablet 00:00: [facility] guanFACINE 2016-0 Yes Univers (TENEX) 1 2-16 [facility]EX[facility] 1 2-16 ity of mg tablet 00:00: [facility] guanFACINE 2016-0 Yes Univers (TENEX) 1 2-16 ity of mg tablet 00:00: [facility] guanFACINE 2016-0 Yes Univers (TENEX) 1 2-16 ity of mg tablet 00:00: [facility] guanFACINE 2016-0 Yes Univers (TENEX) 1 2-16 ity of mg tablet 00:00: [facility] guanFACINE 2016-0 Yes Univers (TENEX) 1 2-16 ity of mg tablet 00:00: [facility] guanFACINE 2016-0 Yes Univers (TENEX) 1 2-16 ity of mg tablet 00:00: [facility] guanFACINE 2016-0 Yes Univers (TENEX) 1 2-16 ity of mg tablet 00:00: [place] [facility] guanFACINE 2016-0 Yes Univers (TENEX) 1 2-16 ity of mg tablet 00:00: [facility] guanFACINE 2016-0 Yes Univers (TENEX) 1 2-16 ity of mg tablet 00:00: [facility] guanFACINE 2016-0 Yes Univers (TENEX) 1 2-16 ity of mg tablet 00:00: [place] [facility] guanFACINE 2016-0 Yes Univers (TENEX) 1 2-16 ity of mg tablet 00:00: [place] [facility] guanFACINE 2016-0 Yes Univers (TENEX) 1 2-16 ity of mg tablet 00:00: [place] [facility] guanFACINE 2016-0 Yes Univers (TENEX) 1 2-16 ity of mg tablet 00:00: [place] [facility] (TENEX) 1 2-16 ity of mg tablet 00:00: [place] [facility] guanFACINE 2016-0 Yes Univers (TENEX) 1 2-16 ity of mg tablet 00:00: [place] [facility] guanFACINE 2016-0 Yes Univers (TENEX) 1 2-16 ity of mg tablet 00:00: [place] [facility] guanFACINE 2016-0 Yes Univers (TENEX) 1 2-16 ity of mg tablet 00:00: [place] [facility] (TENEX) 1 2-16 ity of mg tablet 00:00: [facility] guanFACINE 2016-0 Yes Univers (TENEX) 1 2-16 ity of mg tablet 00:00: [facility] guanFACINE 2016-0 Yes Univers (TENEX) 1 2-16 ity of mg tablet 00:00: [place] [facility] guanFACINE 2016-0 Yes Univers (TENEX) 1 2-16 ity of mg tablet 00:00: [place] [facility] guanFACINE 2016-0 Yes Univers (TENEX) 1 2-16 ity of mg tablet 00:00: [address] guanFACINE 2016-0 Yes Univers (TENEX) 1 2-16 ity of mg tablet 00:00: [place] [facility] guanFACINE 2016-0 Yes Univers (TENEX) 1 2-16 ity of mg tablet 00:00: [place] [facility] guanFACINE 2016-0 Yes Univers (TENEX) 1 2-16 ity of mg tablet 00:00: [facility] guanFACINE 2016-0 Yes Univers (TENEX) 1 2-16 ity [facility] mg tablet [facility]EX[facility] 1 2-16 [facility]y [facility] mg tablet [facility] (TENEX[facility] 1 2-16 ity [facility] mg tablet [facility]TENEX[facility] 2[facility] ity of mg tablet 00:00: [place] [facility] 2016-0 Yes Univers (TENEX) 1 2-16 ity of mg tablet 00:00: [facility] 2016-0 Yes Univers (TENEX) 1 2-16 ity of mg tablet 00:[facility]EX[facility] 1 2-16 ity [facility] mg tablet [facility] (TENEX) 1 2-16 ity [facility] mg tablet 00:[facility] (TENEX) 1 2-16 ity of mg tablet 00:00: [facility] guanFACINE 2016-0 Yes Univers (TENEX) 1 2-16 ity of mg tablet 00:00: [facility] guanFACINE 2016-0 Yes Univers (TENEX) 1 2-16 ity of mg tablet 00:00: [facility] guanFACINE 2016-0 Yes Univers (TENEX) 1 2-16 ity of mg tablet 00:[facility] (TENEX[facility] 1 2-16 ity of mg tablet 00:00: [place] [facility] (TENEX) 1 2-16 ity [facility] mg tablet 00:[facility] (TENEX) 1 2-16 ity of mg tablet 00:00: [place] 00 [facility] guanFACINE 2016-0 Yes Univers (TENEX) 1 2-16 ity of mg tablet 00:00: [place] 00 [facility] guanFACINE 2016-0 Yes Univers (TENEX) 1 2-16 ity of mg tablet 00:00: [place] 00 [facility] guanFACINE 2016-0 Yes Univers (TENEX) 1 2-16 ity of mg tablet 00:00: [place] 00 [facility] guanFACINE 2016-0 Yes Univers (TENEX) 1 2-16 ity of mg tablet 00:00: [place] 00 [facility] guanFACINE 2016-0 Yes Univers (TENEX) 1 2-16 ity of mg tablet 00:00: [place] 00 [facility] guanCINE 2016-0 Yes Univers (TENEX) 1 2-16 ity of mg tablet 00:00: [address] guanCINE 2020- No Univer s (TENEX) 1 2-16 06-11 ity of mg tablet 00:00: 00:00 [place] 00 :00 [facility] Immunizations Ordered Filled Immunization Date Status Comments [facility] e Immunization Name Name Td 2020-12-16 Completed University of 00:00:00 [facility] Td 2020-12-16 Completed [facility] of 00:00:00 [facility] Td 2020-12-16 Completed University of 00:00:00 [facility] Td 2020-12-16 Completed University of 00:00:00 [facility] Td 2020-12-16 Completed University of 00:00:00 [facility] Td 2020-12-16 Completed University of 00:00:00 [facility] Td 2020-12-16 Completed University of 00:00:00 [facility] Td 2020-12-16 Completed University of 00:00:00 [facility] Td 2020-12-16 Completed University of 00:00:00 [facility] Td 2020-12-16 Completed University of 00:00:00 [facility] Td 2020-12-16 Completed University of 00:00:00 [facility] SARS-COV-2 COVID-19 2020-11-30 Completed Unive rsity of MODERNA VACCINE 00:00:00 [facility] SARS-COV-2 COVID-19 2020-11-30 Completed Unive rsity of MODERNA VACCINE 00:00:00 [place] [facility] ical Branch SARS-COV-2 COVID-19 2020-11-30 Completed Unive rsity of MODERNA VACCINE 00:00:00 [place] [facility] Branch SARS-COV-2 COVID-19 2020-11-30 Completed Unive rsity of MODERNA VACCINE 00:00:00 [place] [facility] Branch SARS-COV-2 COVID-19 2020-11-30 Completed Unive rsity of MODERNA VACCINE 00:00:00 [place] [facility] Branch SARS-COV-2 COVID-19 2020-11-30 Completed Unive rsity of MODERNA VACCINE 00:00:00 [place] [facility] ical Branch SARS-COV-2 COVID-19 2020-11-30 Completed Unive rsity of MODERNA VACCINE 00:00:00 [facility] ical Branch SARS-COV-2 COVID-19 2020-11-30 Completed Unive rsity of MODERNA VACCINE 00:00:00 [facility] ical Branch SARS-COV-2 COVID-19 2020-11-30 Completed Unive rsity of MODERNA VACCINE 00:00:00 [place] [facility] Branch SARS-COV-2 COVID-19 2020-11-30 Completed Unive rsity of MODERNA VACCINE 00:00:00 [facility] ical Branch SARS-COV-2 COVID-19 2020-11-30 Completed Unive rsity of MODERNA VACCINE 00:00:00 [facility] ical Branch SARS-COV-2 COVID-19 2020-11-30 Completed Unive rsity of MODERNA VACCINE 00:00:00 [facility] ical Branch SARS-COV-2 COVID-19 2020-11-30 Completed Unive rsity of MODERNA VACCINE 00:00:00 [facility] ical Branch SARS-COV-2 COVID-19 2020-11-30 Completed Unive rsity of MODERNA VACCINE 00:00:00 [facility] V[facility] Sign[facility] Vital Name Observation Time Observation Value Comments Source Systolic blood 2021-04-06 16:00:00 106 mm[Hg] Univer sity of pressure [facility] Diastolic blood 2021-04-06 16:00:00 75 mm[Hg] Unive rsity of pressure [facility] Heart rate 2021-04-06 16:00:00 74 /min [facility] [place] [facility] Body temperature 2021-04-06 16:00:00 36.22 [facility] [place] [facility] Respiratory rate 2021-04-06 16:00:00 16 /min [facility] [place] [facility] Oxygen saturation in 2021-04-06 16:00:00 98 /min [facility] of Arterial blood by [facility] Pulse oximetry Branch Body weight 2021-04-05 09:26:00 73.483 kg [facility] [place] [facility] BMI 2021-04-05 09:26:00 23.24 kg/m2 [facility] [place] [facility] Body height 2021-03-30 09:57:00 177.8 cm [facility] [place] [facility] Systolic blood 2021-04-06 16:00:00 106 mm[Hg] Univer sity of pressure [place] [facility] Diastolic blood 2021-04-06 16:00:00 75 mm[Hg] Unive rsity of pressure [place] [facility] Heart rate 2021-04-06 16:00:00 74 /min [facility] [place] [facility] Body temperature 2021-04-06 16:00:00 36.22 [facility] [facility] [place] [facility] Respiratory rate 2021-04-06 16:00:00 16 /min [facility] [place] [facility] Oxygen saturation in 2021-04-06 16:00:00 98 /min [facility] of Arterial blood by [facility] Pulse oximetry Branch Body weight 2021-04-05 09:26:00 73.483 kg [facility] [place] [facility] BMI 2021-04-05 09:26:00 23.24 kg/m2 [facility] [place] [facility] Body height 2021-03-30 09:57:00 177.8 cm [facility] [place] [facility] Systolic blood 2021-01-18 18:25:00 156 mm[Hg] Univer sity of pressure [place] [facility] Diastolic blood 2021-01-18 18:25:00 84 mm[Hg] Unive rsity of pressure [place] [facility] Heart rate 2021-01-18 18:24:00 101 /min [facility] [place] [facility] Body temperature 2021-01-18 18:24:00 36.56 [facility] [place] [facility] Respiratory rate 2021-01-18 18:24:00 19 /min [facility] [place] [facility] Body height 2021-01-18 18:24:00 177.8 cm [facility] [place] [facility] Body weight 2021-01-18 18:24:00 74.844 kg [facility] [place] [facility] BMI 2021-01-18 18:24:00 23.68 kg/m2 [facility] [place] [facility] Oxygen saturation in 2021-01-18 18:24:00 96 /min [facility] Arterial blood by [place] [facility] Pulse oximetry [facility] Systolic blood 2021-01-18 18:25:00 156 mm[Hg] Univer sity of pressure [place] [facility] Diastolic blood 2021-01-18 18:25:00 84 mm[Hg] Unive rsity of pressure [place] [facility] Heart rate 2021-01-18 18:24:00 101 /min [facility] [place] [facility] Body temperature 2021-01-18 18:24:00 36.56 [facility] [place] [facility] Respiratory rate 2021-01-18 18:24:00 19 /min [facility] [place] [facility] Body height 2021-01-18 18:24:00 177.8 cm [facility] [place] [facility] Body weight 2021-01-18 18:24:00 74.844 kg [facility] [place] [facility] BMI 2021-01-18 18:24:00 23.68 kg/m2 [facility] [place] [facility] Oxygen saturation in 2021-01-18 18:24:00 96 /min [facility] Arterial blood by [place] [facility] Pulse oximetry Branch Systolic blood 2020-12-16 16:00:00 140 mm[Hg] Univer sity of pressure [place] [facility] Diastolic blood 2020-12-16 16:00:00 87 mm[Hg] Unive rsity of pressure [place] [facility] Heart rate 2020-12-16 16:00:00 74 /min [facility] [place] [facility] Respiratory rate 2020-12-16 16:00:00 20 /min [facility] [place] [facility] Oxygen saturation in 2020-12-16 16:00:00 99 /min [facility] Arterial blood by [place] [facility] Pulse oximetry [facility] Body weight 2020-12-16 15:17:00 74.844 kg [facility] [place] [facility] BMI 2020-12-16 15:17:00 25.09 kg/m2 [facility] [place] [facility] Body temperature 2020-12-16 15:15:00 36.94 [facility] [place] [facility] Systolic blood 2020-12-16 16:00:00 140 mm[Hg] Univer sity of pressure [place] [facility] Diastolic blood 2020-12-16 16:00:00 87 mm[Hg] Unive rsity of pressure [place] [facility] Heart rate 2020-12-16 16:00:00 74 /min [facility] [place] [facility] Respiratory rate 2020-12-16 16:00:00 20 /min [facility] [place] [facility] Oxygen saturation in 2020-12-16 16:00:00 99 /min [facility] Arterial blood by [place] [facility] Pulse oximetry [facility] Body weight 2020-12-16 15:17:00 74.844 kg [facility] [place] [facility] BMI 2020-12-16 15:17:00 25.09 kg/m2 [facility] [place] [facility] Body temperature 2020-12-16 15:15:00 36.94 [facility] [facility] [place] [facility] Systolic blood 2020-12-14 17:12:00 119 mm[Hg] Univer sity of pressure [place] [facility] Diastolic blood 2020-12-14 17:12:00 81 mm[Hg] Unive rsity of pressure [place] [facility] Heart rate 2020-12-14 17:12:00 70 /min [facility] [place] [facility] Body temperature 2020-12-14 17:12:00 36.28 [facility] [place] [facility] Respiratory rate 2020-12-14 17:12:00 18 /min [facility] [place] [facility] Oxygen saturation in 2020-12-14 17:12:00 97 /min [facility] Arterial blood by [place] [facility] Pulse oximetry Branch Body weight 2020-12-14 10:15:00 74.481 kg [facility] [place] [facility] BMI 2020-12-14 10:15:00 24.97 kg/m2 [facility] [place] [facility] Body height 2020-12-08 04:26:00 172.7 cm [facility] [place] [facility] Systolic blood 2020-12-14 17:12:00 119 mm[Hg] Univer sity of pressure [place] [facility] Diastolic blood 2020-12-14 17:12:00 81 mm[Hg] Unive rsity of pressure [place] [facility] Heart rate 2020-12-14 17:12:00 70 /min [facility] [place] [facility] Body temperature 2020-12-14 17:12:00 36.28 [facility] [place] [facility] Respiratory rate 2020-12-14 17:12:00 18 /min [facility] [place] [facility] Oxygen saturation in 2020-12-14 17:12:00 97 /min [facility] Arterial blood by [facility]pa Pulse oximetry Branch Body weight 2020-12-14 10:15:00 74.481 kg [facility] [place] [facility] BMI 2020-12-14 10:15:00 24.97 kg/m2 [facility] [place] [facility] Body height 2020-12-08 04:26:00 172.7 cm [facility] [place] [facility] Systolic blood 2020-12-02 21:59:00 139 mm[Hg] Univer sity of pressure [place] [facility] Diastolic blood 2020-12-02 21:59:00 84 mm[Hg] Unive rsity of pressure [place] [facility] Heart rate 2020-12-02 21:59:00 67 /min [facility] [place] [facility] Body height 2020-12-02 21:59:00 172.7 cm [facility] [place] [facility] Body weight 2020-12-02 21:59:00 76.204 kg [facility] [place] [facility] BMI 2020-12-02 21:59:00 25.54 kg/m2 [facility] [place] [facility] Oxygen saturation in 2020-12-02 21:59:00 99 /min [facility] Arterial blood by [facility] Pulse oximetry Branch Systolic blood 2020-12-02 21:59:00 139 mm[Hg] Univer sity of pressure [place] [facility] Diastolic blood 2020-12-02 21:59:00 84 mm[Hg] Unive rsity of pressure [place] [facility] Heart rate 2020-12-02 21:59:00 67 /min [facility] [place] [facility] Body height 2020-12-02 21:59:00 172.7 cm [facility] [place] [facility] Body weight 2020-12-02 21:59:00 76.204 kg [facility] [place] [facility] BMI 2020-12-02 21:59:00 25.54 kg/m2 [facility] [place] [facility] Oxygen saturation in 2020-12-02 21:59:00 99 /min [facility] Arterial blood by [facility] Pulse oximetry Branch Systolic blood 2020-10-28 17:40:00 156 mm[Hg] Univer sity of pressure [place] [facility] Diastolic blood 2020-10-28 17:40:00 85 mm[Hg] Unive rsity of pressure [place] [facility] Heart rate 2020-10-28 17:40:00 65 /min [facility] [place] [facility] Respiratory rate 2020-10-28 17:40:00 20 /min [facility] [place] [facility] Oxygen saturation in 2020-10-28 17:40:00 97 /min [facility] Arterial blood by [facility] Pulse oximetry Branch Body temperature 2020-10-28 17:26:00 36.56 [facility] [facility] [place] [facility] Body height 2020-10-28 16:02:00 172.7 cm [facility] [place] [facility] Body weight 2020-10-28 16:02:00 81.647 kg [facility] [place] [facility] BMI 2020-10-28 16:02:00 27.37 kg/m2 [facility] [place] [facility] Systolic blood 2020-09-24 15:13:00 155 mm[Hg] Univer sity of pressure [place] [facility] Diastolic blood 2020-09-24 15:13:00 91 mm[Hg] Unive rsity of pressure [place] [facility] Heart rate 2020-09-24 15:12:00 58 /min [facility] [place] [facility] Respiratory rate 2020-09-24 15:12:00 18 /min [facility] [place] [facility] Body weight 2020-09-24 15:12:00 77.656 kg [facility] [place] [facility] BMI 2020-09-24 15:12:00 24.56 kg/m2 [facility] [place] [facility] Oxygen saturation in 2020-09-24 15:12:00 98 /min [facility] Arterial blood by [facility] Pulse oximetry Branch Systolic blood 2020-07-15 13:40:00 158 mm[Hg] Univer sity of pressure [place] [facility] Diastolic blood 2020-07-15 13:40:00 81 mm[Hg] Unive rsity of pressure [place] [facility] Heart rate 2020-07-15 13:40:00 63 /min [facility] [place] [facility] Oxygen saturation in 2020-07-15 13:40:00 98 /min [facility] Arterial blood by [facility] Pulse oximetry Branch Body temperature 2020-07-15 13:21:00 36.67 [facility] [place] [facility] Respiratory rate 2020-07-15 11:38:00 16 /min [facility] [place] [facility] Body height 2020-07-15 11:38:00 177.8 cm [facility] [place] [facility] Body weight 2020-07-15 11:38:00 72.576 kg [facility] [place] [facility] BMI 2020-07-15 11:38:00 22.96 kg/m2 [facility] [place] [facility] Systolic blood 2020-07-10 13:45:00 165 mm[Hg] Univer sity of pressure [place] [facility] Diastolic blood 2020-07-10 13:45:00 80 mm[Hg] Unive rsity of pressure [place] [facility] Heart rate 2020-07-10 13:45:00 68 /min [facility] [place] [facility] Respiratory rate 2020-07-10 13:45:00 15 /min [facility] [place] [facility] Oxygen saturation in 2020-07-10 13:45:00 100 /min [facility] Arterial blood by [facility] Pulse oximetry Branch Body temperature 2020-07-10 13:30:00 36.33 [facility] [place] [facility] Body height 2020-07-09 14:00:00 177.8 cm [facility] [place] [facility] Body weight 2020-07-09 14:00:00 73.483 kg [facility] [place] [facility] BMI 2020-07-09 14:00:00 23.24 kg/m2 [facility] [place] [facility] Systolic blood 2020-06-25 14:49:00 200 mm[Hg] Univer sity of pressure [place] [facility] Diastolic blood 2020-06-25 14:49:00 99 mm[Hg] Unive rsity of pressure [place] [facility] Heart rate 2020-06-25 14:48:00 58 /min [facility] [place] [facility] Body height 2020-06-25 14:48:00 172.7 cm [facility] [place] [facility] Body weight 2020-06-25 14:48:00 75.297 kg [facility] [place] [facility] BMI 2020-06-25 14:48:00 25.24 kg/m2 [facility] [place] [facility] Oxygen saturation in 2020-06-25 14:48:00 98 /min [facility] Arterial blood by [facility] Pulse oximetry Branch Systolic blood 2020-05-24 20:35:00 152 mm[Hg] Univer sity of pressure [place] [facility] Diastolic blood 2020-05-24 20:35:00 92 mm[Hg] Unive rsity of pressure [place] [facility] Heart rate 2020-05-24 20:34:00 65 /min [facility] [place] [facility] Body weight 2020-05-24 20:34:00 73.211 kg [facility] [place] [facility] BMI 2020-05-24 20:34:00 23.16 kg/m2 [facility] [place] [facility] Systolic blood 2020-04-22 14:45:00 166 mm[Hg] Univer sity of pressure [place] [facility] Diastolic blood 2020-04-22 14:45:00 85 mm[Hg] Unive rsity of pressure [place] [facility] Heart rate 2020-04-22 14:45:00 69 /min [facility] [place] [facility] Respiratory rate 2020-04-22 14:45:00 13 /min Univ ersity of [facility] Oxygen saturation in 2020-04-22 14:45:00 95 /min [facility] of Arterial blood by [facility] Pulse oximetry Branch Body temperature 2020-04-22 14:15:00 36.67 [facility] Univ ersity of [facility] Body height 2020-04-22 13:15:00 177.8 cm [facility] [place] [facility] Body weight 2020-04-22 13:15:00 71.668 kg [facility] [place] [facility] BMI 2020-04-22 13:15:00 22.67 kg/m2 [facility] Systolic blood 2020-04-02 15:27:00 126 mm[Hg] [facility] Diastolic blood 2020-04-02 15:27:00 71 mm[Hg] [facility] Heart rate 2020-04-02 15:27:00 84 /min [facility] Respiratory rate 2020-04-02 15:27:00 16 /min [facility] Body height 2020-04-02 15:27:00 177.8 cm [facility] Body weight 2020-04-02 15:27:00 71.668 kg [facility] BMI 2020-04-02 15:27:00 22.67 kg/m2 [facility] Oxygen saturation in 2020-04-02 15:27:00 98 /min [facility] by [place] [facility] Pulse oximetry Branch Systolic blood 2020-01-08 15:00:00 139 mm[Hg] [facility] Diastolic blood 2020-01-08 15:00:00 75 mm[Hg] [facility] Heart rate 2020-01-08 15:00:00 61 /min [facility] Respiratory rate 2020-01-08 15:00:00 16 /min [facility] Oxygen saturation in 2020-01-08 15:00:00 95 /min [facility] [place] [facility] Pulse oxim[facility] Branch Body temperature 2020-01-08 14:36:00 36.44 Fela [facility] Body height 2020-01-08 13:48:00 172.7 cm [facility] Body weight 2020-01-08 13:48:00 72.576 kg [facility] BMI 2020-01-08 13:48:00 24.33 kg/m2 [facility] Systolic blood 2019-12-12 16:29:00 128 mm[Hg] [facility] Diastolic blood 2019-12-12 16:29:00 74 mm[Hg] [facility] Heart rate 2019-12-12 16:29:00 57 /min [facility] Respiratory rate 2019-12-12 16:29:00 16 /min [facility] Body height 2019-12-12 16:29:00 175.3 cm [facility] Body weight 2019-12-12 16:29:00 78.744 kg [facility] BMI 2019-12-12 16:29:00 25.64 kg/m2 [facility] Oxygen saturation in 2019-12-12 16:29:00 98 /min [facility] Arterial blood by [facility] Pulse oximetry Branch Systolic blood 2019-12-09 01:55:00 146 mm[Hg] [facility] pressure [facility] Diastolic blood 2019-12-09 01:55:00 90 mm[Hg] Unive rsity of pressure [facility] Heart rate 2019-12-09 01:49:00 53 /min [facility] Body temperature 2019-12-09 01:49:00 36.33 Fela Univ ers[facility] of [facility] Respiratory rate 2019-12-09 01:49:00 17 /min Univ ersity of [facility] Body height 2019-12-09 01:49:00 177.8 cm [facility] of [facility] Body weight 2019-12-09 01:49:00 78.189 kg [facility] of [facility] BMI 2019-12-09 01:49:00 24.73 kg/m2 [facility] Oxygen saturation in 2019-12-09 01:49:00 97 /min [facility] Arterial blood by [facility] Pulse oximetry Branch Systolic blood 2019-11-28 15:35:00 130 mm[Hg] [facility]ity [facility] pressure [facility] Diastolic blood 2019-11-28 15:35:00 70 mm[Hg] Unive rsity of pressure [facility] Heart rate 2019-11-28 15:35:00 55 /min [facility]i [facility] of [facility] Body height 2019-11-28 15:35:00 177.8 cm [facility] [place] [facility] Body weight 2019-11-28 15:35:00 78.518 kg [facility] of [facility] BMI 2019-11-28 15:35:00 24.84 kg/m2 [facility] Oxygen saturation in 2019-11-28 15:35:00 96 /min [facility] Arterial blood by [facility] Pulse oximetry Branch Procedures Procedure Date / Time Performing Clinician Source Performed [id number] 2021-04-08 00:00:00 ENCPL [id number] 2021-04-08 00:00:00 ENCPL [id number] 2021-04-08 00:00:00 ENCPL [id number] 2021-04-08 00:00:00 ENCPL [id number] 2021-04-08 00:00:00 ENCPL [id number] 2021-04-08 00:00:00 ENCPL [id number] 2021-04-08 00:00:00 ENCPL [id number] 2021-04-08 00:00:00 ENCPL [id number] 2021-04-08 00:00:00 ENCPL [id number] 2021-04-08 00:00:00 ENCPL [id number] 2021-04-08 00:00:00 ENCPL [id number] 2021-04-08 00:00:00 ENCPL [id number] 2021-04-08 00:00:00 ENCPL [id number] 2021-04-08 00:00:00 ENCPL [id number] 2021-04-08 00:00:00 ENCPL [id number] 2021-04-08 00:00:00 ENCPL [id number] 2021-04-08 00:00:00 ENCPL [id number] 2021-04-08 00:00:00 ENCPL [id number] 2021-04-08 00:00:00 ENCPL [id number] 2021-04-08 00:00:00 ENCPL [id number] 2021-04-08 00:00:00 ENCPL POCT GLUCOSE (AUTOMATED) 2021-04-06 16:28:00 Humberto Reyna [facility] POCT GLUCOSE (AUTOMATED) 2021-04-06 12:33:00 Humberto Reyna [facility] MAGNESIUM 2021-04-06 08:58:00 Boubacar Sarah [facility] BASIC METABOLIC PANEL (NA, 2021-04-06 08:58:00 Sarah Hamlin [facility] K, CL, CO2, GLUCOSE, BUN, Medica l Branch CREATININE, CA) CBC WITH DIFF 2021-04-06 08:58:00 Boubacar [facility] N-TERMINAL PRO-BNP 2021-04-06 08:58:00 Sarah Hamlin [facility] POCT GLUCOSE (AUTOMATED) 2021-04-06 01:30:00 [facility] ([facility]OMATED) 2021-04-05 21:15:00 [facility]umberto Reyn[facility] ([facility]OM[facility]) 2021-04-05 16:35:00 Humberto Reyna Un iversity [facility] POCT GLUCOSE (AUTOMATED) 2021-04-05 12:43:00 [facility] CBC WITH DIFF 2021-04-05 11:12:00 [facility] 2021-04-05 11:11:00 Boubacar [facility] BASIC METABOLIC PANEL (NA, 2021-04-05 11:11:00 Sarah Hamlin [facility] K, CL, CO2, GLUCOSE, BUN, Medica l Branch CREATININE, CA) N-TERMINAL PRO-BNP 2021-04-05 11:11:00 Boubacar [facility] POCT GLUCOSE (AUTOMATED) 2021-04-05 01:28:00 [facility] PO[facility] GLUCOSE (AUTOMATED) 2021-04-04 21:46:00 Humberto Reyna Un iversity [facility] POCT GLUCOSE (AUTOMATED) 2021-04-04 16:56:00 Humberto Reyna Un iversity [facility] POCT GLUCOSE (AUTOMATED) 2021-04-04 12:41:00 [facility]umber[facility] MAGNES[facility] 2021-04-04 10:10:00 Sarah Hamlin [facility] BASIC METABOLIC PANEL (NA, 2021-04-04 10:10:00 Sarah Hamlin [facility] K, CL, CO2, GLUCOSE, BUN, Medica l Branch CREATININE, CA) CBC WITH DIFF 2021-04-04 10:10:00 Boubacar [facility] N-TERMINAL PRO-BNP 2021-04-04 10:10:00 Boubacar [facility] PROCALCITONIN 2021-04-04 10:10:00 Boubacar [facility] POCT GLUCOSE (AUTOMATED) 2021-04-04 00:35:00 [facility]to [facility] POCT GLUCOSE (AUTOMATED) 2021-04-03 21:37:00 Nelleslie Humberto [facility] POCT GLUCOSE (AUTOMATED) 2021-04-03 16:48:00 [facility]umberto [facility] POCT GLUCOSE (AUTOMATED) 2021-04-03 12:37:00 [facility]umberto [facility] MAGNES[facility]UM 2021-04-03 10:51:00 Boubacar [facility] BASIC METABOLIC PANEL (NA, 2021-04-03 10:51:00 Sarah Hamlin [facility] K, CL, CO2, GLUCOSE, BUN, Medica l Branch CREATININE, CA) CBC WITH DIFF 2021-04-03 10:51:00 Boubacar [facility] N-TERMINAL PRO-BNP 2021-04-03 10:51:00 Boubacar [facility] POCT GLUCOSE (AUTOMATED) 2021-04-03 01:03:00 Humberto [facility] X[facility] CHEST 1 VW 2021-04-03 00:00:04 Boubacar [facility] COMP. METABOLIC PANEL 2021-04-02 09:03:00 Nguyễn Wray [facility] ([id number]) [facility] Branch CBC WITH DIFF 2021-04-02 09:03:00 Nguyễn Wray [facility] GLYCOSYLATED HEMOGLOBIN 2021-04-02 09:03:00 oMnster Alcantar [facility] (A1C) [facility] TRANSTHORACIC ECHO (TTE) 2021-04-01 19:58:17 Nguyễn Wray [facility] COMPLETE [facility] COMP. METABOLIC PANEL 2021-04-01 07:40:00 Nguyễn Wray [facility] ([id number]) [facility] Branch CBC WITH DIFF 2021-04-01 07:40:00 Nguyễn Wray [facility] N-TERMINAL PRO-BNP 2021-04-01 07:40:00 Nguyễn Wray [facility] [place] MODIFIED BARIUM SWALLOW 2021-03-31 17:16:07 Nguyễn Wray [facility] BASIC METABOLIC PANEL (NA, 2021-03-31 09:33:00 Sarah Hamlin [facility] K, CL, CO2, GLUCOSE, BUN, Medica l Branch CREATININE, CA) CBC WITH DIFF 2021-03-31 09:29:00 Boubacar [facility] ACUTE CARE ARTERIAL BLOOD 2021-03-31 01:06:00 Nguyễn Wray [facility] GAS [facility] XR CHEST 1 VW 2021-03-31 00:16:43 Hazel Díaz [facility] US GALL BLADDER 2021-03-30 10:04:34 Boubacar [facility] CT ABDOMEN PELVIS WO 2021-03-30 07:38:14 Humberto Reyna [facility] CONTRAST [facility] CT HEAD WO CONTRAST 2021-03-30 07:37:23 Humberto Reyna [facility] XR CHEST 1 VW 2021-03-30 07:37:03 Humberto Reyna [facility] EKG-12 LEAD 2021-03-30 07:07:26 Humberto Reyna [facility] URINALYSIS 2021-03-30 07:05:00 Humberto Reyna [facility] URINE CULTURE 2021-03-30 07:05:00 Humberto Reyna [facility] BLOOD CULTURE SCREEN 2021-03-30 06:58:00 Humberto Reyna [facility] LIPASE 2021-03-30 06:58:00 Humberto Reyna [facility] TROPONIN I 2021-03-30 06:58:00 Humberto Reyna [facility] COMP. METABOLIC PANEL 2021-03-30 06:58:00 Humberto Reyna [facility] ([id number]) Medical Branch CBC WITH DIFF 2021-03-30 06:58:00 Humberto Ryena [facility] LACTIC ACID WHOLE BLOOD 2021-03-30 06:58:00 Humberto Reyna [facility] COVID-19 (ID NOW RAPID 2021-03-30 06:58:00 Humberto Reyna [facility] TESTING) Medical Branch LAB ONLY COVID 2021-03-30 06:58:00 Humberto Reyna [facility] INTERPRETATION Medical Branch CONSENT/REFUSAL FOR 2021-03-30 06:38:14 Doctor Javi [facility] DIAGNOSIS AND TREATMENT [facility] EMERGENCY DEPARTMENT 2021-03-30 05:01:00 Doctor Javi [facility] DOCUMENTS [facility] REFERRAL- REQUEST/RESPONSE 2021-03-14 05:01:00 Doctor Javi , [facility] Name Medical Lyle XR CHEST 2 VW 2021-03-12 21:23:08 [facility] ASSIGNMENT OF BENEFITS 2021-03-12 21:10:54 Doctor Javi, [facility] HOME HEALTH - OTHER 2021-03-03 05:01:00 Doctor Javi [facility] HOME HEALTH - OTHER 2021-02-06 05:01:00 Doctor Javi [facility] POCT URINALYSIS 2021-01-18 18:21:00 [place] [facility] XR ELBOW <3 VW RIGHT 2020-12-16 16:31:58 Vira Hinton [facility] [place] CT CERVICAL SPINE WO 2020-12-16 16:17:23 Vira Hinton [facility] CONTRAST Medical [place] CT HEAD WO CONTRAST 2020-12-16 16:17:23 Vira Hinton [facility] ASSIGNMENT OF BENEFITS 2020-12-16 15:20:42 Doctor Javi, [facility] Name Medical Branch NOTICE OF PRIVACY 2020-12-16 15:20:09 Doctor Javi, [facility] PRACTICES [facility] CONSENT/REFUSAL FOR 2020-12-16 15:19:57 Doctor Unassigned, [facility] DIAGNOSIS AND TREATMENT [facility] POCT GLUCOSE (AUTOMATED) 2020-12-14 17:15:00 Margarita Case [facility] POCT GLUCOSE (AUTOMATED) 2020-12-14 13:50:00 Margarita Case [facility] XR ABDOMEN 1 VW 2020-12-14 01:33:55 [facility] POCT GLUCOSE (AUTOMATED) 2020-12-13 23:15:00 Margarita Case [facility] XR CHEST 1 VW 2020-12-13 23:00:17 [facility] BASIC METABOLIC PANEL (NA, 2020-12-13 19:48:00 [facility], CL, CO2, GLUCOSE, BUN, Medica l Branch CREATININE, CA) CBC WITH DIFF 2020-12-13 19:48:00 [facility] PO[facility] GLUCOSE (AUTOMATED) 2020-12-13 17:17:00 Margarita Case [facility] POCT GLUCOSE (AUTOMATED) 2020-12-13 13:52:00 Margarita Case [facility] POCT GLUCOSE (AUTOMATED) 2020-12-12 23:15:00 Margarita Case [facility] POCT GLUCOSE (AUTOMATED) 2020-12-12 17:55:00 Margarita Case Uni [facility] POCT GLUCOSE (AUTOMATED) 2020-12-12 14:14:00 Margarita Case [facility] BASIC METABOLIC PANEL (NA, 2020-12-12 09:48:00 Margarita Case [facility] K, CL, CO2, GLUCOSE, BUN, Medica l Branch CREATININE, CA) CBC WITH DIFF 2020-12-12 09:48:00 Margarita Case [facility] N-TERMINAL PRO-BNP 2020-12-12 09:48:00 Margarita Case [facility] POCT GLUCOSE (AUTOMATED) 2020-12-11 23:13:00 Margarita Case [facility] POCT GLUCOSE (AUTOMATED) 2020-12-11 17:59:00 Sara ray [facility] POCT GLUCOSE (AUTOMATED) 2020-12-11 13:59:00 Margarita Case [facility] BASIC METABOLIC PANEL (NA, 2020-12-11 08:57:00 Margarita Case [facility] K, CL, CO2, GLUCOSE, BUN, Medica l Branch CREATININE, CA) CBC WITH DIFF 2020-12-11 08:57:00 Sara ray [facility] N-TERMINAL PRO-BNP 2020-12-11 08:57:00 Sara ray [facility] URINALYSIS 2020-12-10 17:48:00 Sara [facility] URINE CULTURE 2020-12-10 17:48:00 Sara ray [facility] XR CHEST 1 VW 2020-12-10 13:30:33 Sara [facility] BLOOD CULTURE SCREEN 2020-12-10 10:48:00 Margarita Case [facility] MAGNESIUM 2020-12-10 10:48:00 Sara [facility] HEPATIC FUNCTION PANEL 2020-12-10 10:48:00 Margarita Case [facility] ([id number]) (ALB,T.PRO,BILI Medical Branch T,BU/BC,ALT,AST,ALK PHOS) BASIC METABOLIC PANEL (NA, 2020-12-10 10:48:00 Margarita Case [facility] K, CL, CO2, GLUCOSE, BUN, Medica l Branch CREATININE, CA) CBC WITH DIFF 2020-12-10 10:48:00 Sara ray [facility] N-TERMINAL PRO-BNP 2020-12-10 10:48:00 Sara ray [facility] BLOOD CULTURE SCREEN 2020-12-10 10:43:00 Margarita Case [facility] URIC ACID 2020-12-09 07:50:00 Sara ray [facility] MAGNESIUM 2020-12-09 07:50:00 Sara [facility] BILI UNCONJUGATED/BILI 2020-12-09 07:50:00 Margarita Case [facility] COMP. METABOLIC PANEL 2020-12-09 07:50:00 Nguyễn Wray [facility] ([id number]) [facility] Branch CBC WITH DIFF 2020-12-09 07:50:00 Sara [facility] N-TERMINAL PRO-BNP 2020-12-09 07:50:00 Sara ray [facility] POCT GLUCOSE (AUTOMATED) 2020-12-09 03:48:00 Margarita Case [facility] XR ABDOMEN 1 VW 2020-12-09 02:27:22 Sara [facility] PHOSPHORUS 2020-12-08 11:03:00 Sara [facility] URIC ACID 2020-12-08 11:03:00 Sara [facility] MAGNESIUM 2020-12-08 11:03:00 Sara [facility] HEPATIC FUNCTION PANEL 2020-12-08 11:03:00 Margarita Case [facility] ([id number]) (ALB,T.PRO,BILI [facility] Branch T,BU/BC,ALT,AST,ALK PHOS) BASIC METABOLIC PANEL (NA, 2020-12-08 11:03:00 Margarita Case [facility] K, CL, CO2, GLUCOSE, BUN, Medica l Branch CREATININE, CA) SEDIMENTATION RATE 2020-12-08 11:03:00 Sara ray [facility] CBC WITH DIFF 2020-12-08 11:03:00 Sara [facility] N-TERMINAL PRO-BNP 2020-12-08 11:03:00 [facility] LACTIC ACID WHOLE BLOOD 2020-12-08 11:03:00 Margarita Case [facility] PROTHROMBIN TIME / INR 2020-12-08 07:27:00 Margarita Case [facility] LACTIC ACID WHOLE BLOOD 2020-12-08 07:27:00 Sara ray [facility] PROCALCITONIN 2020-12-08 07:27:00 Sara ray [facility] CT ABDOMEN PELVIS WO 2020-12-08 07:16:40 Margarita Case [facility] CONTRAST [facility] LACTIC ACID WHOLE BLOOD 2020-12-08 01:55:00 Celi Cronin [facility] COVID-19 (MOLECULAR 2020-12-08 01:55:00 Celi Cronin [facility] TESTING [facility] NUCLEIC ACID AMPLIFICATION) LAB ONLY COVID 2020-12-08 01:55:00 Magaly CroninFormerly [facility] INTERPRETATION [facility] URINALYSIS 2020-12-08 01:35:00 [facility] 2020-12-08 01:35:00 [facility] BLOOD CULTURE SCREEN 2020-12-07 23:15:00 Celi Cronin [facility] BLOOD CULTURE WORKUP 2020-12-07 23:15:00 Celi Cronin [facility] GRAM NEGATIVE BLOOD 2020-12-07 23:15:00 Celi Cronin [facility] PATHOGENS DNA [facility] PROBE-AEROBIC XR CHEST 1 VW 2020-12-07 23:12:26 [facility] LACTIC ACID WHOLE BLOOD 2020-12-07 22:59:00 Celi Cronin [facility] BLOOD CULTURE SCREEN 2020-12-07 22:58:00 Celi Cronin [facility] PHOSPHORUS 2020-12-07 22:58:00 Sara ray [facility] CREATINE KINASE 2020-12-07 22:58:00 Sara [facility] URIC ACID 2020-12-07 22:58:00 Margarita Case [facility] MAGNESIUM 2020-12-07 22:58:00 Sara [facility] TROPONIN I 2020-12-07 22:58:00 Mehrdad [facility] THYROID STIMULATING 2020-12-07 22:58:00 Sraa [facility] HORMONE [facility] Branch HEPATIC FUNCTION PANEL 2020-12-07 22:58:00 [id number] (ALB,T.PRO,BILI Medical Branch T,BU/BC,ALT,AST,ALK PHOS) BASIC METABOLIC PANEL (NA, 2020-12-07 22:58:00 [facility], CL, CO2, GLUCOSE, BUN, Medica l Branch CREATININE, CA) LIPID PANEL ([id number])(TOTAL 2020-12-07 22:58:00 Margarita Case [facility] CHOLESTEROL, [facility] TRIGLYCERIDES, HDL) CBC WITH DIFF 2020-12-07 22:58:00 Mehrdad [facility] GLYCOSYLATED HEMOGLOBIN 2020-12-07 22:58:00 SaraExcela [facility] (A1C) [facility] N-TERMINAL PRO-BNP 2020-12-07 22:58:00 Celi Cronin [facility] COVID-19 (ID NOW RAPID 2020-12-07 22:58:00 Mehrdad [facility] TESTING) Medical Branch LAB ONLY COVID 2020-12-07 22:58:00 Mehrdad [facility] INTERPRETATION [facility] HB ECG ROUTINE & RHYTHM 2020-12-07 22:48:20 Celi Cronin [facility] STRIP Medical Branch FL TIME OR 2020-10-28 17:21:54 NagiCamacho teresa [facility] (NON-REPORTABLE) Medical Branch ASSIGNMENT OF BENEFITS 2020-10-28 15:33:20 Doctor [facility] DISCLOSURE AND CONSENT, 2020-09-24 06:01:00 Doctor Unassigned, [facility] MEDICAL AND SURGICAL [facility] PROCEDURES FL TIME OR 2020-07-15 13:17:48 Charles Crenshaw [facility] (NON-REPORTABLE) Medical Branch DAY SURGERY - VICTORY 2020-07-15 05:01:00 Doctor Unassigned, [facility] LAKES [facility] COLONOSCOPY (ENDO) 2020-07-10 12:47:38 Bowen Donahue [facility] Medical Branch NOTICE OF PRIVACY 2020-07-09 16:05:22 Doctor Unassigned, [facility] PRACTICES [facility] CONSENT/REFUSAL FOR 2020-07-09 16:05:10 Doctor Unassigned, [facility] DIAGNOSIS AND TREATMENT [facility] ASSIGNMENT OF BENEFITS 2020-07-09 16:04:50 Doctor Unassigned, [facility] FL MODIFIED BARIUM SWALLOW 2020-06-26 18:54:41 Ben Cook [facility] C Medical Branch CONSENT/REFUSAL FOR 2020-06-26 18:08:02 Doctor Unassigned, [facility] DIAGNOSIS AND TREATMENT [facility] ASSIGNMENT OF BENEFITS 2020-06-26 18:07:34 Doctor Unassigned, Un [facility] DISCLOSURE AND CONSENT, 2020-06-25 05:01:00 Doctor Unassrosita, [facility] MEDICAL AND SURGICAL [facility] PROCEDURES DSU PRE-OP 2020-06-12 05:01:00 Doctor Unassigned, [facility] PHYSICIAN ORDERS 2020-05-30 05:01:00 Doctor Unassigned, [facility] FL TIME OR 2020-04-22 14:08:43 Denia Aguirre [facility] (NON-REPORTABLE) [place] [facility] ASSIGNMENT OF BENEFITS 2020-04-22 12:57:06 Doctor Unassigned, [facility] FL TIME OR 2020-01-08 14:28:40 Tracy Ryan [facility] [place] (NON-REPORTABLE) Medical Branch US RETROPERITONEAL LIMITED 2019-12-19 15:57:12 Ray Veronica at [facility] Medical Branch NOTICE OF PRIVACY 2019-12-19 14:56:13 Doctor Unassigned, [facility] PRACTICES [facility] CONSENT/REFUSAL FOR 2019-12-19 14:55:38 Doctor Unassigned, [facility] DIAGNOSIS AND TREATMENT [facility] ASSIGNMENT OF BENEFITS 2019-12-19 14:55:16 [facility], [facility] DISCLOSURE AND CONSENT, 2019-12-12 06:01:00 Doctor Unassigned, U [facility] MEDICAL AND SURGICAL [facility] PROCEDURES MR LUMBAR SPINE WO 2019-12-05 17:03:02 [facility] CONSENT/REFUSAL FOR 2019-12-05 16:02:19 Doctor Unassigned, [facility] DIAGNOSIS AND TREATMENT [facility] ASSIGNMENT OF BENEFITS 2019-12-05 16:02:00 Doctor Unassigned, Un [facility] DISCLOSURE AND CONSENT, 2019-05-10 05:01:00 Doctor Unassigned, U [facility] MEDICAL AND SURGICAL [facility] PROCEDURES Encounters Start End Encounter Admission Attending Care Care Encounter Source Date/Time Date/Time Type Type Clinicians Facility Department ID 2021-11-20 Outpatient [id number] ENCPL REF ENCPL 12:19:18 [id number] 2021-11-20 Outpatient 3 KAJAL ENCPL CRD ENCPL 11:37:20 NADIA 0223 2021-11-20 Outpatient [id number] ENCPL REF [id number] ENCPL 11:36:38 [id number] Emergency [facility] [id number] [facility] [id number] [facility]23 Emergency [facility] [id number] Univers 23:32[facility]23 Outpatient R DAQUAN [facility] EDU [id number] Univers 12:40:42 ELLIOT [facility] 2021-08-22 Outpatient R TOÑO [facility] ZOILA [id number] Univers 17:33:44 JIM Pepe [facility] 2021-08-22 Outpatient MEREDITHPRAFUL [facility] [id number] Univers 12:21:10 E, NIZAR [facility] 2021-07-24 2021-07-24 Outpatient R DAQUAN [facility] [id number] Univers 10:00:00 10:00:00 ELLIOT [id number] [facility] 2021-07-24 2021-07-24 Outpatient R DAQUAN [facility] [id number] Univers 10:00:00 10:00:00 ELLIOT [facility] 2021-06-12 2021-06-12 Outpatient R TOÑO SENA [facility] [id number] Univers 15:00:00 15:00:00 TOÑO SENA [id number] i ty [facility] 2021-06-12 2021-06-12 Outpatient R TOÑO SENA [facility] [id number] Univers 15:00:00 15:00:00 TOÑO SENA i ty [facility] 2021-04-18 2021-04-18 Outpatient Kajal, HCAPM RADI [id number] -[id number] [facility] 20:04:00 20:04:00 Nadia [id number] [facility] 2021-04-16 2021-04-16 Outpatient KAJAL, HCAPM LABO [id number] -20 [facility] 17:35:00 17:35:00 NADIA [id number] [facility] 2021-04-16 2021-04-16 Outpatient Kajal, HCAPM RADI [id number] -20 [facility] 10:05:00 10:05:00 Nadia [id number] [facility] 2021-04-16 2021-04-16 Outpatient Kajal, HCAPM RADI [id number] -20 [facility] 10:05:00 10:05:00 Nadia [id number] [facility] 2021-04-15 2021-04-15 Outpatient Martinez, HCAPM LABO LA504 32-20 [facility] 19:46:00 19:46:00 Shayy Bobby [facility] 2021-04-15 2021-04-15 Outpatient Martinez, HCAPM LABO LA535 35-20 [facility] 19:46:00 19:46:00 Shayy Bobby [facility] 2021-04-08 2021-04-08 Transition Callie Davis 1.2.840.114 [id number] 00:00:00 00:00:00 of Care Magdalena Valencia 350.1.13.10 [place] 4.2.7.2.686 [id number] 2021-04-08 2021-04-08 Transition Callie Davis 1.2.840.114 [id number] [facility] 00:00:00 00:00:00 of Care Magdalena Valencia 350.1.13.10 it y of [place] 4.2.7.2.686 [facility] [id number] [facility] [address] 2021-03-30 2021-04-06 [facility] 1.2.840. 114 [id number] 01:37:00 13:48:00 Encounter MkroxanneJannSarahbrodie Ayala 350.1.13.10 [place] 4.2.7.2.686 Gary [id number] [facility] 2021-03-30 2021-04-06 [facility] 1.2.840. 114 [id number] [facility] 01:37:00 13:48:00 Encounter MkroxanneJannSarahbrodie Ayala 350.1.13.10 ity of [place] 4.2.7.2.686 [facility] [id number] [facility] [address] 2021-03-28 2021-03-28 [facility] [id number] -20 Univers 09:30:00 09:30:00 ELLIOT [id number] [facility] 2021-03-28 2021-03-28 Out[facility] [id number] Univers 09:30:00 09:30:00 ELLIOT [facility] 2021-03-21 2021-03-21 Outpatient DIANDRA Veronica SURG [id number] 2-20 [facility] 07:30:00 07:30:00 Ray [id number] [facility] 2021-03-14 2021-03-14 Orders Doctor CARDONA 1.2.840.114 [id number] 00:00:00 00:00:00 Only Unassigned, JASMIN 350.1.13.10 [place] [facility] 4.2.7.2.686 [id number] 009 2021-03-14 2021-03-14 Orders Doctor BRENDAN 1.2.840.114 [id number] Univers 00:00:00 00:00:00 Only Unassigned, JASMIN 350.1.13.10 ity of [place] [facility] 4.2.7.2.686 Robe as [id number] [facility] [address] 2021-03-12 2021-03-12 [facility] 1.2.840.114 [id number] 16:13:03 23:59:00 Encounter Taisha [place] 350.1.13.10 [facility] 4.2.7.2.686 Gary [id number] 807 2021-03-12 2021-03-12 [facility] 1.2.840.114 [id number] Univers 16:13:03 23:59:00 Encounter Taisha [place] 350.1.13.10 ity of [facility] 4.2.7.2.686 [facility] [id number] [facility] [address] 2021-03-12 2021-03-12 Outpatient [facility] [id number] -20 Univers 16:15:00 16:15:00 TAISHA [id number] molly o [facility] 2021-03-12 2021-03-12 Outpatient R [facility] [id number] Univers 00:00:00 00:00:00 TAISHA barnes o f [facility] 2021-03-12 2021-03-12 Orders Doctor BRENDAN 1.2.840.114 [id number] 00:00:00 00:00:00 Only Unassigned, JASMIN 350.1.13.10 [place] [facility] 4.2.7.2.686 [id number] 2021-03-12 2021-03-12 Orders Doctor CARDONA 1.2.840.114 [id number] Univers 00:00:00 00:00:00 Only Unassigned, JASMIN 350.1.13.10 ity of [place] [facility] 4.2.7.2.686 Robe as [id number] [address] 2021-03-03 2021-03-03 Outpatient [facility] [id number] Univers 00:00:00 00:00:00 ity [facility] 2021-03-03 2021-03-03 Orders Doctor BRENDAN 1.2.840.114 [id number] 00:00:00 00:00:00 Only Unassigned, JASMIN 350.1.13.10 [place] [facility] 4.2.7.2.686 [id number] 2021-03-03 2021-03-03 Orders Doctor BRENDAN 1.2.840.114 [id number] Univers 00:00:00 00:00:00 Only Unassigned, JASMIN 350.1.13.10 ity of [place] [facility] 4.2.7.2.686 Robe as [id number] [address] 2021-02-21 2021-02-21 Outpatient Vincent BUTT [facility] [id number] -20 Univers 10:30:00 10:30:00 ELLIOT [id number] ity [facility] 2021-02-07 2021-02-07 Outpatient TESSY SmithWU LABO [id number] 2-20 [facility] 11:21:00 11:21:00 Ray [id number] [facility] 2021-02-06 2021-02-06 Outpatient [facility] [id number] Univers 00:00:00 00:00:00 ity [facility] 2021-02-06 2021-02-06 Orders Doctor BRENDAN Guevara.2.840.114 [id number] 00:00:00 00:00:00 Only Unassigned, JASMIN 350.1.13.10 [place] [facility] 4.2.7.2.686 [id number] 009 2021-02-06 2021-02-06 Orders Doctor BRENDAN Guevara.2.840.114 [id number] Univers 00:00:00 00:00:00 Only Unassigned, JASMIN 350.1.13.10 ity of [place] [facility] 4.2.7.2.686 Robe as [phone] [address] 2021-01-31 2021-01-31 Outpatient Jeremías, HCAWU SURG [id number] 2-20 [facility] 11:30:00 11:30:00 Ray [id number] [facility] 2021-01-18 2021-01-18 Urgent Provider, [facility] 1.2.688.731 [id number] 13:05:30 13:48:58 Care [facility] 350.1.13.10 Care [place] 4.2.7.2.686 Professio [phone] nal [facility] 2021-01-18 2021-01-18 Urgent Provider, Ang [facility]gent [facility] 1.2.840.114 [id number] Univers 13:05:30 13:48:58 Care Green, Jose De Jesus [facility] 350.1.13.10 ity of [place] 4.2.7.2.686 Robe as Professio [phone] Md dical [address] [facility] 2021-01-18 2021-01-18 Outpatient [facility] [id number] -[id number] Univers 13:20:00 13:20:00 [id number] [facility] 2021-01-18 2021-01-18 [facility] [id number] Univers 13:20:00 13:20:00 JOSE DE JESUS [facility] 2020-12-31 2020-12-31 [facility] [id number] -[id number] Univers 10:30:00 10:30:00 ELLIOT [id number] [facility] 2020-12-31 2020-12-31 Outpatient [facility] [id number] Univers 10:30:00 10:30:00 ELLIOT [facility] 2020-12-28 2020-12-28 Outpatient [facility] [id number] Univers 13:35:00 13:35:00 [facility] 2020-12-26 2020-12-26 Outpatient YAHIR PEREZ [facility] RADI LA50 [id number] [facility] 23:14:00 23:14:00 [id number] [facility] 2020-12-23 2020-12-23 [facility] 1.2.567.331 [id number] 00:00:00 00:00:00 Vicky [place] 350.1.13.10 [place] 4.2.7.2.686 Professio [id number] nal 059 [facility] 2020-12-23 2020-12-23 Richland Sher [facility] 1.2.086.989 [id number] [facility] 00:00:00 00:00:00 Vicky Ayala 350.1.13.10 ity of [place].2.7.2.[place] [facility] [phone] Md dical [facility] 059 [facility] 2020-12-21 2020-12-21 Outpatient TESSY HINTON SUJATA [id number] 32-20 [facility] 11:15:00 11:15:00 SHAYY [id number] [facility] 2020-12-16 2020-12-16 Emergency [facility] 1.2.840.114 [id number] 09:13:00 12:14:00 Vira Ayala 350.1.13.10 [place] 4.2.7.2.686 Gary [id number] [facility] 2020-12-16 2020-12-16 [facility] 1.2.840.114 [id number] [facility] 09:13:00 12:14:00 Vira Ayala 350.1.13.10 ity of [place].2.[place] [id number] [facility] [address] 2020-12-16 2020-12-16 Transition Callie Davis 1.2.840.114 [id number] 00:00:00 00:00:00 of Care Magdalena Valencia 350.1.13.10 [place] 4.2.7.2.686 [id number] [facility] 2020-12-16 2020-12-16 Transition Callie Davis 1.2.840.114 [id number] [facility] 00:00:00 00:00:00 of Care Magdalena Valencia 350.1.13.10 it y of [place] 4.2.7.2.686 [place] [phone] [facility] [address] 2020-12-07 2020-12-14 [facility] Celi Cronin [facility] 1.2.840. 114 [id number] 16:40:00 14:30:00 Encounter Margarita Case 350.1.13.10 Celi Cronin [place] 4.2.7.2.686 Margarita Case [place] [phone] [facility] 2020-12-07 2020-12-14 [facility] Celi Cronin [facility] 1.2.840. 114 [id number] Univers 16:40:00 14:30:00 Encounter Margarita Case 350.1.13.10 ity Celi Cronin [place] 4.2.7.2.686 [place] [facility] [phone] [address] 2020-12-02 2020-12-02 Office [facility] 1.2.840.114 [id number] 15:47:20 16:24:08 Visit Gio Shravan Motaton 350.1.13.10 [place] 4.2.7.2.686 Professio [id number] [address] 2020-12-02 2020-12-02 Office [facility] 1.2.840.114 [id number] Univers 15:47:20 16:24:08 Visit Gio Shravan Lucy 350.1.13.10 [facility] 4.2.7.2.[place] [phone] Md dical [address] 2020-12-02 2020-12-02 Outpatient GIO ADDISON [facility] [id number] Univers 15:40:00 15:40:00 GIO MEREDITH [id number] [facility] 2020-12-02 2020-12-02 Outpatient GIO ADDISON [facility] [id number] Univers 15:40:00 15:40:00 GIO MEREDITH rissa [facility] 2020-11-30 2020-11-30 Outpatient [facility] [id number] Univers 13:30:00 13:30:[facility] 2020-11-25 2020-11-25 Outpatient GIO ADDISON [facility] [id number] Univers 09:20:00 09:20:00 [facility]EDITH [id number] [facility] 2020-11-25 2020-11-25 Outpatient R GIO MEREDITH [facility] [id number] Univers 09:20:00 09:20:00 GIO MEREDITH ity of [facility] 2020-11-01 2020-11-01 Refill Viri [facility] 1.2.840.114 [id number] Univers 00:00:00 00:00:00 Gio Ayala 350.1.13.10 ity of [place] 4.2.7.2.686 [place] [phone] Md dical nal [address] [facility] 2020-10-31 2020-10-31 Patient Doctor [facility] 1.2.840.114 [id number] Univers 00:00:00 00:00:00 Secure Msg Unassigned, HEALTH 350.1.13.10 ity of [place].2.7.2.686 [place] [facility] [id number] [facility] Primary & [address] [facility] 2020-10-28 2020-10-28 Hospital [facility] 1.2.840.114 [id number] Univers 09:34:00 11:45:00 Encounter Elliot SPECIALTY 350.1.13.10 ity of [facility] 4.2.7.2.686 [place] [phone] Md dical [facility] 020 [facility] 2020-10-28 2020-10-28 Orders Doctor BRENDAN 1.2.840.114 [id number] Univers 00:00:00 00:00:00 Only Unassigned, JASMIN 350.1.13.10 ity of [place] [facility] 4.2.7.2.686 Robe as [id number] [facility] [address] 2020-10-25 2020-10-25 Laboratory Only, Robe Test [facility] 1.2.840. 114 [id number] Univers 16:17:10 16:28:43 Only Daquan Elliot [facility] 350.1.13.1 0 ity of [place] 4.2.7.2.686 [place] [phone] [facility] Primary & [address] [facility] Care 2020-10-25 2020-10-25 Outpatient [facility] [id number] -[id number] Univers 16:00:00 16:00:00 [id number] ity of [facility] 2020-10-25 2020-10-25 Outpatient [facility] [id number] Univers 16:00:00 16:00:00 ELLIOT barnes [facility] 2020-10-24 2020-10-24 Outpatient [facility] [id number] -[id number] Univers 11:00:00 11:00:00 [id number] ity [facility] 2020-09-24 2020-09-24 Office [facility] 1.2.840.114 [id number] Univers 08:52:04 10:12:31 Visit Elliot CHILD 350.1.13.10 ity of [place].2.7.2.686 [place] [id number] [address] [facility] 2020-09-24 2020-09-24 Outpatient [facility] [id number] -20 Univers 09:00:00 09:00:00 ELLIOT ity [facility] 2020-09-24 2020-09-24 Outpatient [facility] [id number] Univers 09:00:00 09:00:00 ELLIOT rissa [facility] 2020-08-30 2020-08-30 Refjuan [facility] 1.2.840.114 [id number] Univers 00:00:00 00:00:00 Elliot CHILD 350.1.13.10 ity of [place].2.7.2.686 [place] [id number] [facility] [address] [facility] 2020-08-28 2020-08-28 Cande [facility] 1.2.840.114 [id number] Univers 00:00:00 00:00:00 Gio Ayala 350.1.13.10 ity of [place] 4.2.7.2.[place] [phone] [address] 2020-07-16 2020-07-16 [place] [facility] 1.2.035.330 [id number] Univers 00:00:00 00:00:00 Bebeto CHILD 350.1.13.10 ity of [place] 4.2.7.2.686 [facility] [id number] [facility] AND SURPRISE [address] [facility] 2020-07-15 2020-07-15 Outpatient R DAQUAN [facility] [id number] -[id number] Univers 10:55:00 10:55:00 ELLIOT [id number] ity of [facility] 2020-07-15 2020-07-15 [facility] 1.2.840.114 [id number] Univers 06:17:00 09:00:00 Encounter Elliot LOPEZ 350.1.13.10 ity of [facility] 4.2.7.2.686 [facility] AT [phone] Md elisabet [address] 2020-07-15 2020-07-15 Outpatient [facility] VLS [id number] Univers 08:24:00 08:24:00 ELLIOT itrissa [facility] 2020-07-15 2020-07-15 Orders Doctor CARDONA 1.2.840.114 [id number] Univers 00:00:00 00:00:00 Only UnassignedJASMIN 350.1.13.10 ity of [place] [facility] 4.2.7.2.686 Robe [id number] [facility] [address] 2020-07-12 2020-07-12 Outpatient [facility] [id number] Univers 14:00:00 14:00:00 [id number] ity of [facility] 2020-07-12 2020-07-12 Outpatient R DAQUAN [facility] [id number] Univers 14:00:00 14:00:00 ELLIOT itrissa [facility] 2020-07-12 2020-07-12 Laboratory Only, Adc Test [facility] 1.2.840. 114 [id number] Univers 12:47:57 13:02:57 Only Elliot Butt 350.1.13. 10 ity of [place] 4.2.7.2.686 [facility] [phone] [facility] [address] 2020-07-11 2020-07-11 Outpatient [facility] [id number] -[id number] Univers 13:30:00 13:30:00 [id number] ity of [facility] 2020-07-10 2020-07-10 [facility] 1.2.840.114 [id number] Univers 07:25:00 08:54:00 Encounter Jim pepe 350.1.13.10 ity of [place].2.7.2.686 [place] [id number] [facility] [address] 2020-07-09 2020-07-09 Outpatient [facility] [id number] Univers 12:15:00 12:15:00 [id number] ity of [facility] 2020-07-09 2020-07-09 Outpatient R [facility] [id number] Univers 12:15:00 12:15:00 JIM Pepey o f [facility] 2020-07-09 2020-07-09 Laboratory Only, Adc Test [facility] 1.2.840. 114 [id number] Univers 11:05:07 11:20:07 Only Jim Cook 350.1.1 3.10 ity of [place] 4.2.7.2.686 [place] [id number] [facility] [address] 2020-06-26 2020-06-26 Hospital [facility] 1.2.840.114 [id number] Univers 13:00:00 23:59:00 Encounter Jim pepe 350.1.13.10 ity of [place].2.686 [place] [id number] [facility] [address] 2020-06-26 2020-06-26 Ancillary Jasmyne De La Rosa [facility] 1.2.8 40.114 [id number] Univers 14:46:04 15:31:04 Visit Elio Richardson 350.1.13.10 ity of [place] 4.2.7.2.686 [place] [phone] Md dical nal 145 [facility] 2020-06-26 2020-06-26 Outpatient R DEBRA [facility] [id number] Univers 14:15:00 14:15:00 ELIO barnes of [facility] 2020-06-26 2020-06-26 Outpatient [facility] [id number] Univers 13:00:00 13:00:00 JIM Pepe ity o f [facility] 2020-06-26 2020-06-26 Outpatient R TOÑO [facility] [id number] Univers 00:00:00 00:00:00 JIM Pepe concepción stevens [facility] 2020-06-25 2020-06-25 Office Daquan [facility] 1.2.840.114 [id number] Univers 09:34:20 11:21:20 Visit Elliot CHILD 350.1.13.10 ity of [place] 4.2.7.2.686 [facility] [place] [phone] [address] [facility] 2020-06-25 2020-06-25 [facility] [id number] -[id number] Univers 09:30:00 09:30:00 ELLIOT itrissa of [facility] 2020-06-25 2020-06-25 Outpatient [facility] [id number] Univers 09:30:00 09:30:00 ELLIOT barnes [facility] 2020-06-25 2020-06-25 Prep For Robinson [facility] 1.2.840.114 [id number] Univers 00:00:00 00:00:00 Surgery Dany CHILD 350.1.13.10 ity of [place] 4.2.7.2.686 [facility] [place] [phone] [address] [facility] 2020-06-18 2020-06-18 Outpatient R [facility] [id number] Univers 14:00:00 14:00:00 [id number] ity of [facility] 2020-06-12 2020-06-12 Orders Doctor CARDONA 1.2.840.114 [id number] Univers 00:00:00 00:00:00 Only Unassigned, JASMIN 350.1.13.10 [facility] 4.2.7.2.686 [facility] [phone] [place] [address] [place] 2020-06-07 2020-06-07 Telephone Rj [facility] 1.2.840.114 [id number] Univers 00:00:00 00:00:00 Jasmyne Ayala 350.1.13.10 ity of [place] 4.2.7.2.686 [facility] Professio [phone] Md dical nal 145 [facility] 2020-05-30 2020-05-30 Staffing Program Manager Alejandro, [facility] 1.2.8 40.114 [id number] Univers 15:11:19 15:26:19 Visit Jim Cook 350.1.1 3.10 ity of [place] 4.2.7.2.[place] [phone] Md dical nal 353 [facility] 2020-05-30 2020-05-30 Outpatient R [facility] [id number] Univers 15:15:00 15:15:00 ity of [facility] 2020-05-30 2020-05-30 Outpatient R TOÑO [facility] [id number] Univers 15:15:00 15:15:00 JIM Pepe o f [facility] 2020-05-30 2020-05-30 Telephone [facility] 1.2.840.114 [id number] Univers 00:00:00 00:00:00 Jasmyne Ayala 350.1.13.10 ity of [place].2.7.2.[place] [phone] Md dical nal 145 [facility] 2020-05-30 2020-05-30 Orders Doctor BRENDAN 1.2.840.114 [id number] Univers 00:00:00 00:00:00 Only Unassigned, JASMIN 350.1.13.10 ity of [place] [facility] 4.2.7.2.686 [place] as [phone] [address] 2020-05-24 2020-05-24 Office Viri [facility] 1.2.840.114 [id number] Univers 15:14:55 16:00:27 Visit Gio Ayala 350.1.13.10 ity of [place] 4.2.7.2.[place] [id number] Md dical nal 092 [facility] 2020-05-24 2020-05-24 Outpatient R GIO MEREDITH [facility] [id number] Univers 15:20:00 15:20:00 GIO MEREDITH [id number] ity of [facility] 2020-05-24 2020-05-24 Outpatient R VIRIGIO [facility] [id number] Univers 15:20:00 15:20:00 VIRI GIO ity of [facility] 2020-04-22 2020-04-22 Outpatient R DAQUAN [facility] VLS [id number] Univers 15:38:00 15:38:00 ELLIOT ity of [facility] 2020-04-22 2020-04-22 [facility] Daquan [facility] 1.2.840.114 [id number] Univers 07:56:00 09:54:[address] [facility] 350.1.13.10 ity of [place] 4.2.7.2.686 [facility] [phone] [address] ([facility]) 2020-04-22 2020-04-22 Orders Doctor BRENDAN 1.2.840.114 [id number] Univers 00:00:00 00:00:00 Only Unassigned, JASMIN 350.1.13.10 [facility] 4.2.7.2.686 [facility] [phone] [address] 2020-04-19 2020-04-19 Laboratory Only, Adc Test [facility] 1.2.840. 114 [id number] Univers 09:46:35 11:01:51 Only Андрей Weiss 350.1.13.10 ity of [place] 4.2.7.2.686 [facility] [id number] [address] 2020-04-19 2020-04-19 Outpatient [facility] [id number] Univers 09:30:00 09:30:00 [id number] ity of [facility] 2020-04-19 2020-04-19 Outpatient R АНДРЕЙ WEISS [facility] [id number] Univers 09:30:00 09:30:00 ity of [facility] 2020-04-19 2020-04-19 Outpatient R АНДРЕЙ WEISS [facility] [id number] Univers 09:30:00 09:30:00 ity of [facility] 2020-04-16 2020-04-16 Outpatient R DAQUAN [facility] [id number] -[id number] Univers 15:30:00 15:30:00 ELLIOT [id number] ity of [facility] 2020-04-02 2020-04-02 Office [facility] 1.2.840.114 [id number] Univers 09:52:51 12:21:25 Visit Elliot CHILD 350.1.13.10 ity of [place].2.7.2.686 [place] [id number] [address] DIABETES [facility] 2020-04-02 2020-04-02 [facility] [id number] Univers 10:30:00 10:30:00 ELLIOT [id number] itrissa of [facility] 2020-04-02 2020-04-[address] [facility] [id number] Univers 10:30:00 10:30:00 ELLIOT [facility] 2020-03-21 2020-03-21 Refjuan [facility] 1.2.840.114 [id number] Univers 00:00:00 00:00:00 Gio Ayala 350.1.13.10 ity of [place] 4.2.7.2.686 [facility] [phone] Md dic[address] 2020-03-13 2020-03-13 [facility] [id number] Univers 00:00:00 00:00:00 Elliot CHILD [id number] ity [id number] [id number] [address] DIABETES [facility] 2020-03-07 2020-03-07 Telephone [facility] [id number] Univers 00:00:00 00:00:00 Elliot CHILD [id number] [id number] [id number] [facility] AND [address] DIABETES [facility] 2020-02-07 2020-02-[address] [facility] [id number] Univers 11:00:00 11:00:00 ELLIOT barnes [facility] 2020-02-07 2020-02-07 Telemedici [facility] [id number] Univers 08:13:21 08:43:21 ne Visit Elliot CHILD [id number] ity of [facility] [id number] [facility] [phone] [facility] AND [place] [address] [facility] 2020-01-08 2020-01-08 Outpatient R DAQUAN [facility] DSU [id number] Univers 08:20:00 10:21:00 ELLIOT ity of [facility] 2020-01-08 2020-01-08 [facility] 1.2.840.114 [id number] Univers 08:20:00 10:21:[address] [facility] [id number] ity of [place] [id number] [facility] [id number] [address] ([facility]) 2019-12-19 2019-12-19 Outpatient R RADIOLOGY [facility] [id number] Univers 09:01:16 23:59:00 ity of [facility] 2019-12-19 2019-12-19 Hospital Radiology [facility] 1.2.840.114 [id number] Univers 09:01:00 23:59:00 Encounter [place] 350.1.13.10 ity [facility] 4.2.7.2.686 [facility] [phone] [facility] [address] 2019-12-19 2019-12-19 Outpatient R RADIOLOGY [facility] [id number] Univers 09:30:00 09:30:00 [id number] ity of [facility] 2019-12-12 2019-12-12 [facility] 1.2.840.114 [id number] Univers 10:12:57 11:33:05 Visit [facility] 350.1.13.10 ity of [place] 4.2.7.2.686 [facility] [phone] [facility] AND [place] [address] [facility] 2019-12-12 2019-12-12 Outpatient R DAQUAN [facility] [id number] Univers 10:00:00 11:33:05 ELLIOT ity of [facility] 2019-12-08 2019-12-08 Urgent Marli Leiva [facility] 1.2.840.114 [id number] Univers 19:46:07 21:02:47 Care Unknown, [facility] 350.1.13.10 ity of [facility] 4.2.7.2.686 [facility] [phone] Md dical es 370 [facility] 2019-12-05 2019-12-05 Outpatient R DAQUAN [facility] [id number] Univers 10:06:22 23:59:00 ELLIOT ity of [facility] 2019-12-05 2019-12-05 Hospital [facility] 1.2.840.114 [id number] Univers 10:06:00 23:59:00 Encounter Elliot Ayala 350.1.13.10 ity of [place] 4.2.7.2.686 [facility] [place] [phone] [facility] [address] 2019-11-29 2019-11-29 Telephone [facility] 1.2.511.151 [id number] Univers 00:00:00 00:00:00 Elliot CHILD 350.1.13.10 ity of [facility] 4.2.7.2.686 [facility] [place] [phone] [facility] AND [place] [address] [facility] 2019-11-28 2019-11-28 Office [facility] 1.2.840.114 [id number] Univers 09:03:19 10:23:33 Visit Elliot MATEUSZ 350.1.13.10 ity of [place] 4.2.7.2.686 [facility] [place] [phone] [facility] AND [place] [address] [facility] 2019-05-10 2019-05-10 Orders Doctor BRENDAN 1.2.840.114 [id number] Univers 00:00:00 00:00:00 Only Unassigned, JASMIN 350.1.13.10 ity of [place] [facility] 4.2.7.2.686 [place] as [phone] [facility] [address] Results Test Description Test Time Test Comments Results Result [facility] e Comments - CT ABD PELVIS 2021-04-18 W/O CONT 20:57:00 [facility] : 1935 Sex: M Name: KRISTEN FERREIRA [facility] : 1935 Age/S: 85 / M [address] Unit #: [id number] Loc: [place] [address] Phys: Undefined Provider Acct: [id number] Dis Date: Status: REG REF PHONE #: [phone] Exam Date: 04/18/20212034 FAX #: Reason: hematoma EXAMS: CPT: [id number] CT ABD PELVIS W/O CONT 86458 Dictation location: [facility]. CT ABDOMEN AND PELVIS WITHOUT IV CONTRAST HISTORY: hematoma COMPARISON: CT abdomen and pelvis 04/16/21. TECHNIQUE: Axial CT images of the abdomen and pelvis were obtained with coronal and/or sagittal reformatted views. Automated exposure control, iterative reconstruction technique, and/or adjustment of mA and/or kV according to patient's size was utilized for radiation dose reduction. IV CONTRAST: None. PO CONTRAST: None. Lack of IV contrast limits evaluation of the parenchyma and vasculature. FINDINGS: Bilateral pleural effusions, left greater than right with likely adjacent atelectasis. The heart size is normal. Small pericardial effusion. Coronary artery calcifications. The gallbladder is distended without surrounding inflammatory changes. Calcification within the spleen is unchanged. The unenhanced liver and adrenal glands are unremarkable. The pancreas is atrophic, unchanged. Right nephrectomy. Again noted is the hematoma along the retroperitoneum tracking along the psoas muscle, not significantly changed in size. Probable left renal cysts are not significantly changed. No left hydronephrosis or nephrolithiasis. Urinary bladder is distended without wall thickening. The prostate is normal in size and contains calcifications. No free air, free fluid or evidence of a bowel obstruction. Diverticula are noted without evidence of diverticulitis. The stomach is collapsed. The appendix is not definitely visualized. No localized inflammatory changes or fluid collection. Along the right flank is a hernia containing a portion of the colon. More inferiorly there are likely several other smaller ventral hernias containing a PAGE 1 Signed Report (CONTINUED) Name: KRISTEN FERREIRA : 1935 Age/S: 85 / M [id number] Unit #: [id number] Loc: [place] [address] Phys: Undefined Provider Acct: [id number] Dis Date: Status: REG REF PHONE #: [phone] Exam Date: 04/18/20212034 FAX #: Reason: hematoma EXAMS: CPT: [id number] CT ABD PELVIS W/O CONT 94459 <Continued> portion of the colon. No obstruction. Atherosclerotic calcifications affect the aorta and its branches. 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 No abdominal or pelvic adenopathy. Moderate lumbar spondylosis. Generalized anasarca. IMPRESSION: Right nephrectomy. Continued large retroperitoneal hematoma within the right psoas muscle, not significantly changed since 04/16/21. No free fluid. Multiple right-sided ventral hernias along the flank containing portions of the bowel, likely colon without evidence of obstruction. Diverticulosis without evidence of diverticulitis. Small right and moderate left pleural effusions. at 2056 Reported and signed by: Sofia Quarles M.D. CC: Technologist:Maria D Henderson, RT(R)(CT)(MRI) CTDI: DLP: Trnscb Date/Time: 04/18/2021 (2056) [email or web address] Orig Print D/T: S: 04/18/2021 (2099) PAGE 2 Signed Report CBC W/AUTO DIFF 2021-04-16 18:53:00 Test Item Value Reference Range Interpretation Comme nts WHITE BLOOD CELL (test code = 16.0 K/mm3 3.5-11.0 H WBC) RED BLOOD CELL (test code = 2.94 M/mm3 4.70-6.10 L RBC) HEMOGLOBIN (test code = HGB) 8.7 G/DL 12.3-15.9 L HEMATOCRIT (test code = HCT) 27.0 % 35.8-46.7 L MEAN CELL VOLUME (test code = 91.8 Fl 86.3-98.9 N MCV) MEAN CELL HGB (test code = MCH) 29.6 pg 28.9-34.4 N MEAN CELL HGB CONCETRATION 32.2 G/DL 32.1-34.5 N (test code = MCHC) RED CELL DISTRIBUTION WIDTH 14.9 SD 11.5-14.5 H (test code = RDW) PLATELET COUNT (test code = 362 K/mm3 150-450 N PLT) MEAN PLATELET VOLUME (test code 9.60 fL 7.0-9.6 N = MPV) NEUTROPHIL % (test code = NT%) 79.0 % 40-76 H IMMATURE GRANULOCYTE % (test 1.2 % 0.0-5.0 N code = IG%) LYMPHOCYTE % (test code = LY%) 8.5 % 20.5-51.1 L MONOCYTE % (test code = MO%) 9.9 % 1.7-9.3 H EOSINOPHIL % (test code = EO%) 1.2 % 0.0-6.0 N BASOPHIL % (test code = BA%) 0.2 % 0.0-2.0 N NUCLEATED RBC % (test code = 0.0 /100WBC% 0.0-1.0 N NRBC%) NEUTROPHIL # (test code = NT#) 12.7 K/mm3 1.8-7.6 H IMMATURE GRANULOCYTE # (test 0.19 x10 3/uL 0.00-0.03 H code = IG#) LYMPHOCYTE # (test code = LY#) 1.4 K/mm3 0.6-3.0 N MONOCYTE # (test code = MO#) 1.6 K/mm3 0.2-1.5 H EOSINOPHIL # (test code = EO#) 0.2 K/mm3 0.0-0.4 N BASOPHIL # (test code = BA#) 0.0 K/mm3 0.0-0.2 N NUCLEATED RBC # (test code = 0.0 K/mm3 0.00-0.01 N NRBC#) MANUAL DIFF REQUIRED (test code NO DIFF/SCN CRITERIA SLIDE REVIEW CONSISTANT WITH = MDIFF) AUTO DIFFERENTI AL. CBC W/AUTO [id number] 18:07:00 Test Item Value Reference Range Interpretation Comments WHITE BLOOD CELL (test code = WBC) 16.0 K/mm3 3.5-11.0 H RED BLOOD CELL (test code = RBC) 2.94 M/mm3 4.70-6.10 L HEMOGLOBIN (test code = HGB) 8.7 G/DL 12.3-15.9 L HEMATOCRIT (test code = HCT) 27.0 % 35.8-46.7 L MEAN CELL VOLUME (test code = MCV) 91.8 Fl 86.3-98.9 N MEAN CELL HGB (test code = MCH) 29.6 pg 28.9-34.4 N MEAN CELL HGB CONCETRATION (test 32.2 G/DL 32.1-34.5 N code = MCHC) RED CELL DISTRIBUTION WIDTH (test SD 11.5-14.5 H code = RDW) PLATELET COUNT (test code = PLT) 362 K/mm3 150-450 N MEAN PLATELET VOLUME (test code = fL 7.0-9.6 N MPV) NEUTROPHIL % (test code = NT%) % 40-76 H IMMATURE GRANULOCYTE % (test code % 0.0-5.0 N = IG%) LYMPHOCYTE % (test code = LY%) % 20.5-51.1 L MONOCYTE % (test code = MO%) % 1.7-9.3 H EOSINOPHIL % (test code = EO%) % 0.0-6.0 N BASOPHIL % (test code = BA%) % 0.0-2.0 N NUCLEATED RBC % (test code = /100WBC% 0.0-1.0 N NRBC%) NEUTROPHIL # (test code = NT#) K/mm3 1.8-7.6 H IMMATURE GRANULOCYTE # (test code x10 3/uL 0.00-0.03 H = IG#) LYMPHOCYTE # (test code = LY#) K/mm3 0.6-3.0 N MONOCYTE # (test code = MO#) K/mm3 0.2-1.5 H EOSINOPHIL # (test code = EO#) K/mm3 0.0-0.4 N BASOPHIL # (test code = BA#) K/mm3 0.0-0.2 N NUCLEATED RBC # (test code = K/mm3 0.00-0.01 N NRBC#) MANUAL DIFF REQUIRED (test code = DIFF/SCN CRITERIA MDIFF) - CT ABDOMEN W/O [id number] 11:17:00 [facility] : 1935 Sex: M Name: KRISTEN FERREIRA [facility] : 1935 Age/S: 85 / M [address] Unit #: [id number] Loc: [place] [address] Phys: Nadia Rdz MD Acct: [id number] Dis Date: Status: REG REF PHONE #: [phone] Exam Date: 04/16/2021 1025 FAX #: Reason: PAIN/ECCHYMOSIS EXAMS: CPT: [id number] CT ABDOMEN W/O CONTRAST 68348 EXAMINATION: - CT ABDOMEN W/O CONTRAST. LOCATION: B2. HISTORY: PAIN/ECCHYMOSIS. COMPARISON: CT abdomen and pelvis dated 12/26/2020. TECHNIQUE: CT abdomen was performed without the use of IV contrast. Sagittal and coronal reconstructed images were available for review. This exam was performed according to our departmental dose-optimization program, which includes automated exposure control, adjustment of the mA and/or kV according to patient size, and/or use of iterative reconstruction technique.FINDINGS: Lower chest: Moderate left and small right pleural effusions are seen with mild adjacent atelectasis. There is a small calcified right lower lobe granuloma. Heart size is normal. There is a small pericardial effusion. Abdomen: 1.4 cm left hepatic cyst is present. There is a small calcified splenic granuloma. 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 Multiple left renal cysts are seen measuring up to 5.3 cm. Mild nonspecific left perinephric stranding is present. The noncontrast appearance of the gallbladder, pancreas, and bilateral adrenal glands is within normal limits. Large 11.7 x 7.8 x6.6 cm right iliopsoas and retroperitoneal hematoma is present (axial image 48 and coronal image 42). Significant colonic diverticulosis is present. Two right lateral abdominal wall hernias are seen containing part of the ascending colonic wall without evidence of bowel obstruction (axial images 53 and 39). The appendix is not well-visualized. No pneumoperitoneum is identified. There is no mesenteric or retroperitoneal adenopathy. Bones/soft tissues: Mild degenerative changes are seen in the spine. No acute osseous abnormality is identified. No aggressive lytic or blastic lesions are seen. IMPRESSION: PAGE 1 Signed Report (CONTINUED) Name: KRISTEN FERREIRA [facility] : 1935 Age/S: 85 / M [address] Unit #: [id number] Loc: [place] [address] Phys: Nadia Rdz MD Acct: [id number] Dis Date: Status: REG REF PHONE #: [phone] Exam Date: 04/16/2021 1025 FAX #: Reason: PAIN/ECCHYMOSIS EXAMS: CPT: [id number] CT ABDOMEN W/O CONTRAST 66840 <Continued> 11.7 x 7.8 cm right iliopsoas retroperitoneal hematoma. Significant colonic diverticulosis. Two right lateral abdominal wall hernias containing part of the ascending colonic wall without evidence of bowel obstruction. Moderate left and small right pleural effusions with mild adjacent atelectasis. Small pericardial effusion. Other findings as described. Findings were personally discussed with Dr. Rdz at 1115 hours on 04/16/2021. at 1117 Reported and signed by: Carlos Espinoza M.D. CC: Nadia Rdz MD Technologist:Krzysztof Wrigth, RT(R)(CT); Kr CTDI: DLP: Trnscb Date/Time: 04/16/2021 (1117) [email or web address] Orig Print D/T: S: 04/16/2021 (1120) PAGE 2 Signed Report- CT ABDOMEN W/O [id number] 11:17:00 [facility] : 1935 Sex: M Name: KRISTEN FERREIRA [facility] : 1935 Age/S: 85 / M [address] Unit #: [id number] Loc: [place] [address] Phys: Nadia Rdz MD Acct: [id number] Dis Date: Status: REG REF PHONE #: [phone] Exam Date: 04/16/2021 1025 FAX #: Reason: PAIN/ECCHYMOSIS EXAMS: CPT: [id number] CT ABDOMEN W/O CONTRAST 92248 EXAMINATION: - CT ABDOMEN W/O CONTRAST. LOCATION: B2. HISTORY: PAIN/ECCHYMOSIS. COMPARISON: CT abdomen and pelvis dated 12/26/2020. TECHNIQUE: CT abdomen was performed without the use of IV contrast. Sagittal and coronal reconstructed images were available for review. This exam was performed according to our departmental dose-optimization program, which includes automated exposure control, adjustment of the mA and/or kV according to patient size, and/or use of iterative reconstruction technique.FINDINGS: Lower chest: Moderate left and small right pleural effusions are seen with mild adjacent atelectasis. There is a small calcified right lower lobe granuloma. Heart size is normal. There is a small pericardial effusion. Abdomen: 1.4 cm left hepatic cyst is present. There is a small calcified splenic granuloma. 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 Multiple left renal cysts are seen measuring up to 5.3 cm. Mild nonspecific left perinephric stranding is present. The noncontrast appearance of the gallbladder, pancreas, and bilateral adrenal glands is within normal limits. Large 11.7 x 7.8 x6.6 cm right iliopsoas and retroperitoneal hematoma is present (axial image 48 and coronal image 42). Significant colonic diverticulosis is present. Two right lateral abdominal wall hernias are seen containing part of the ascending colonic wall without evidence of bowel obstruction (axial images 53 and 39). The appendix is not well-visualized. No pneumoperitoneum is identified. There is no mesenteric or retroperitoneal adenopathy. Bones/soft tissues: Mild degenerative changes are seen in the spine. No acute osseous abnormality is identified. No aggressive lytic or blastic lesions are seen. IMPRESSION: PAGE 1 Signed Report (CONTINUED) Name: KRISTEN FERREIRA [place] : 1935 Age/S: 85 / M [address] Unit #: [id number] Loc: [place] [address] Phys: Nadia Rdz MD Acct: [id number] Dis Date: Status: REG REF PHONE #: [phone] Exam Date: 04/16/2021 1025 FAX #: Reason: PAIN/ECCHYMOSIS EXAMS: CPT: [id number] CT ABDOMEN W/O CONTRAST 95314 <Continued> 11.7 x 7.8 cm right iliopsoas retroperitoneal hematoma. Significant colonic diverticulosis. Two right lateral abdominal wall hernias containing part of the ascending colonic wall without evidence of bowel obstruction. Moderate left and small right pleural effusions with mild adjacent atelectasis. Small pericardial effusion. Other findings as described. Findings were personally discussed with Dr. Rdz at 1115 hours on 04/16/2021. at 1117 Reported and signed by: Carlos Espinoza M.D. CC: Nadia Rdz MD Technologist:Krzysztof Wright, RT(R)(CT); Kr CTDI: DLP: Trnscb Date/Time: 04/16/2021 (1117) [email or web address] Orig Print D/T: S: 04/16/2021 (1120) PAGE 2 Signed ReportCBC W/AUTO [id number] 20:42:00 Test Item Value Reference Range Interpretation Comments WHITE BLOOD CELL 16.8 K/mm3 3.5-11.0 H (test code = WBC) RED BLOOD CELL (test 3.09 M/mm3 4.70-6.10 L code = RBC) HEMOGLOBIN (test code 9.1 G/DL 12.3-15.9 L = HGB) HEMATOCRIT (test code 28.2 % 35.8-46.7 L = HCT) MEAN CELL VOLUME 91.3 Fl 86.3-98.9 N (test code = MCV) MEAN CELL HGB (test 29.4 pg 28.9-34.4 N code = MCH) MEAN CELL HGB 32.3 G/DL 32.1-34.5 N CONCETRATION (test code = MCHC) RED CELL DISTRIBUTION 14.6 SD 11.5-14.5 H WIDTH (test code = RDW) PLATELET COUNT (test 356 K/mm3 150-450 N code = PLT) MEAN PLATELET VOLUME 9.70 fL 7.0-9.6 H (test code = MPV) NEUTROPHIL % (test 77.7 % 40-76 H code = NT%) IMMATURE GRANULOCYTE 1.2 % 0.0-5.0 N % (test code = IG%) LYMPHOCYTE % (test 9.7 % 20.5-51.1 L code = LY%) MONOCYTE % (test code 9.9 % 1.7-9.3 H = MO%) EOSINOPHIL % (test 1.2 % 0.0-6.0 N code = EO%) BASOPHIL % (test code 0.3 % 0.0-2.0 N = BA%) NUCLEATED RBC % (test 0.0 /100WBC% 0.0-1.0 N code = NRBC%) NEUTROPHIL # (test 13.1 K/mm3 1.8-7.6 H code = NT#) IMMATURE GRANULOCYTE 0.21 x10 3/uL 0.00-0.03 H # (test code = IG#) LYMPHOCYTE # (test 1.6 K/mm3 0.6-3.0 N code = LY#) MONOCYTE # (test code 1.7 K/mm3 0.2-1.5 H = MO#) EOSINOPHIL # (test 0.2 K/mm3 0.0-0.4 N code = EO#) BASOPHIL # (test code 0.1 K/mm3 0.0-0.2 N = BA#) NUCLEATED RBC # (test 0.0 K/mm3 0.00-0.01 N code = NRBC#) MANUAL DIFF REQUIRED NO DIFF/SCN CRITERIA SLIDE R MACKENZIE (test code = MDIFF) CONSISTA NT WITH AUTO DIFFERENTI AL. CBC W/AUTO [id number] 20:00:00 Test Item Value Reference Range Interpretation Comments WHITE BLOOD CELL (test code = WBC) 16.8 K/mm3 3.5-11.0 H RED BLOOD CELL (test code = RBC) 3.09 M/mm3 4.70-6.10 L HEMOGLOBIN (test code = HGB) 9.1 G/DL 12.3-15.9 L HEMATOCRIT (test code = HCT) 28.2 % 35.8-46.7 L MEAN CELL VOLUME (test code = MCV) 91.3 Fl 86.3-98.9 N MEAN CELL HGB (test code = MCH) 29.4 pg 28.9-34.4 N MEAN CELL HGB CONCETRATION (test 32.3 G/DL 32.1-34.5 N code = MCHC) RED CELL DISTRIBUTION WIDTH (test SD 11.5-14.5 H code = RDW) PLATELET COUNT (test code = PLT) 356 K/mm3 150-450 N MEAN PLATELET VOLUME (test code = fL 7.0-9.6 H MPV) NEUTROPHIL % (test code = NT%) % 40-76 H IMMATURE GRANULOCYTE % (test code % 0.0-5.0 N = IG%) LYMPHOCYTE % (test code = LY%) % 20.5-51.1 L MONOCYTE % (test code = MO%) % 1.7-9.3 H EOSINOPHIL % (test code = EO%) % 0.0-6.0 N BASOPHIL % (test code = BA%) % 0.0-2.0 N NUCLEATED RBC % (test code = /100WBC% 0.0-1.0 N NRBC%) NEUTROPHIL # (test code = NT#) K/mm3 1.8-7.6 H IMMATURE GRANULOCYTE # (test code x10 3/uL 0.00-0.03 H = IG#) LYMPHOCYTE # (test code = LY#) K/mm3 0.6-3.0 N MONOCYTE # (test code = MO#) K/mm3 0.2-1.5 H EOSINOPHIL # (test code = EO#) K/mm3 0.0-0.4 N BASOPHIL # (test code = BA#) K/mm3 0.0-0.2 N NUCLEATED RBC # (test code = K/mm3 0.00-0.01 N NRBC#) MANUAL DIFF REQUIRED (test code = DIFF/SCN CRITERIA MDIFF) BASIC METABOLIC [id number] 20:00:00 Test Item Value Reference Range Interpretation Comments SODIUM (test code = NA) 141 mmol/L 134-147 N POTASSIUM (test code = 4.1 mmol/L 3.4-5.0 N K) CHLORIDE (test code = 108 mmol/L 100-108 N CL) CARBON DIOXIDE (test 25 mmol/L 21-32 N code = CO2) ANION GAP (test code = 8.0 GAP calc 4.0-15.0 N GAP) GLUCOSE (test code = 134 MG/DL 70-110 H GLU) BLOOD UREA NITROGEN 31 MG/DL 7-18 H (test code = BUN) GLOMERULAR FILTRATION >=60 max estimate >60 RATE (test code = GFR) estGFR CREATININE (test code = 1.2 MG/DL 0.8-1.3 N CREAT) CALCIUM (test code = CA) 8.3 MG/DL 8.5-10.1 L POCT GLUCOSE (AUTOMATED)2021-04-06 16:50:16 Test Item Value Reference Range Interpretation Comments POCT GLU (test code = 9464689715) 121 mg/dL 70-110 H Lab Interpretation (test code = Abnormal 48864-7) [facility]21-04-06 12:47:00 Test Item Value Reference Range Interpretation Comments POCT GLU (test code = 8980468091) 131 mg/dL 70-110 H Lab Interpretation (test code = Abnormal 88954-8) [facility] [id number] 11:47:19 Test Item Value Reference Range Interpretation Comments NT-proBNP (test code 3640 pg/mL See_Comment H [Autom ated = 2999148278) message] The system which generated this result transmitted reference range : <=450. The reference range was not used to interpret this result as normal/abnormal . BRIGIDO (test code = BRIGIDO) Biotin has been reported to cause a negative bias, interpret results relative to patient's use of biotin. Lab Interpretation Abnormal (test code = 60804-6) [facility] (NA, K, CL, CO2, GLUCOSE, BUN, CREATININE, CA)2021-04-06 11:38:42 Test Item Value Reference Range Interpretation Comments NA (test code = 139 mmol/L 135-145 1842389966) K (test code = 3.0 mmol/L 3.5-5.0 L 2128233109) CL (test code = 104 mmol/L 98-108 7460308054) CO2 TOTAL (test code = 25 mmol/L 23-31 5248248669) AGAP (test code = 2-16 0229696531) BUN (test code = 23 mg/dL 7-23 4343807811) GLUCOSE (test code = 129 mg/dL 70-110 H 1253212979) CREATININE (test code = 1.18 mg/dL 0.60-1.25 1711884355) CALCIUM (test code = 9.1 mg/dL 8.6-10.6 3947920705) eGFR (test code = mL/min/1.73m2 2954761391) BRIGIDO (test code = BRIGIDO) Association of Glomerular Filtration Rate (GFR) and Staging of Kidney Disease* + --+ --+ ------+| GFR (mL/min/1.73 m2) ?| With Kidney Damage ?| ?Without Kidney Damage+ --------+ --------+ +| ?>90 ?| ?Stage one ?| ? Normal ?+ ---+ ---+ -------+| ?60-89 ?| ?Stage two ?| ? Decreased GFR ? + --+ --+ ------+| ?30-59 ?| ?Stage three ?| ? Stage three ? + --+ --+ ------+| ?15-29 ?| ?Stage four ? | ? Stage four ?+ ---+ ---+ -------+| ?<15 (or dialysis) ? ?| ?Stage five ? | ? Stage five ?+ ---+ ---+ -------+ *Each stage assumes the associated GFR level has been in effect for at least three months. ?Stages 1 to 5, with or without kidney disease, indicate chronic kidney disease. Notes: Determination of stages one and two (with eGFR >59mL/min/1.73 m2) requires estimation of kidney damage for at least three months as defined by structural or functional abnormalities of the kidney, manifested by either:Pathological abnormalities or Markers of kidney damage (including abnormalities in the composition of the blood or urine or abnormalities in imaging tests). Lab Interpretation Abnormal (test code = 41948-8) [facility] Center[facility]2021-[facility]-13 11:38:42 Test Item Value Reference Range Interpretation Comments MAGNESIUM (test code = 3532674780) 1.9 mg/dL 1.7-2.4 Lab Interpretation (test code = Normal 02682-3) [facility] WITH [id number] 09:49:36 Test Item Value Reference Range Interpretation Comments WBC (test code = See_Comment H [Automated 0990-2) message] The sy stem which generated this result transmitted reference range : 4.20 - 10.70 10*3/?L. The reference range was not used to interpret this result as normal/abnormal . RBC (test code = See_Comment [Automated 789-8) message] The sy stem which generated this result transmitted reference range : 4.26 - 5.52 10*6/?L. The reference range was not used to interpret this result as normal/abnormal . HGB (test code = 13.6 g/dL 12.2-16.4 718-7) HCT (test code = 41.0 % 38.4-49.3 4544-3) MCV (test code = 88.4 fL 81.7-95.6 787-2) MCH (test code = 29.3 pg 26.1-32.7 785-6) MCHC (test code = 33.2 g/dL 31.2-35.0 786-4) RDW-SD (test code = 45.8 fL 38.5-51.6 63423-8) RDW-CV (test code = 14.3 % 12.1-15.4 788-0) PLT (test code = See_Comment [Automated 777-3) message] The sy stem which generated this result transmitted reference range : 150 - 328 10*3/ ?L. The reference r harvinder was not used to interpret this result as normal/abnormal . MPV (test code = 9.4 fL 9.8-13.0 L 20724-2) NRBC/100 WBC (test See_Comment [Automat ed code = 9545035499) message] The system which generated this result transmitted reference range : 0.0 - 10.0 /100 WBCs. The refer ence range was not u sed to interpret th is result as normal/abnormal . NRBC x10^3 (test code <0.01 See_Comment [Auto mated = [id number]) message] The s ystem which generated this result transmitted reference range : 10*3/?L. The reference range was not used to interpret this result as normal/abnormal . GRAN MAT (NEUT) % 74.6 % (test code = 770-8) IMM GRAN % (test code 1.20 % = [id number]) LYMPH % (test code = 7.4 % 736-9) MONO % (test code = 14.7 % 5905-5) EOS % (test code = 1.7 % 713-8) BASO % (test code = 0.4 % 706-2) GRAN MAT x10^3(ANC) 8.73 10*3/uL 1.99-6.95 H (test code = [id number]) IMM GRAN x10^3 (test 0.14 10*3/uL 0.00-0.06 H code = [id number]) LYMPH x10^3 (test code 0.86 10*3/uL 1.09-3.23 L = 731-0) MONO x10^3 (test code 1.72 10*3/uL 0.36-1.02 H = 742-7) EOS x10^3 (test code = 0.20 10*3/uL 0.06-0.53 711-2) BASO x10^3 (test code 0.05 10*3/uL 0.01-0.09 = 704-7) Lab Interpretation Abnormal (test code = 48926-8) [facility] GLUCOSE (AUTOMATED)2021-04-06 01:45:02 Test Item Value Reference Range Interpretation Comments POCT GLU (test code = 6068161158) 123 mg/dL 70-110 H Lab Interpretation (test code = Abnormal 12774-5) [facility] GLUCOSE (AUTOMATED)2021-04-05 21:25:46 Test Item Value Reference Range Interpretation Comments POCT GLU (test code = 4615922768) 116 mg/dL 70-110 H Lab Interpretation (test code = Abnormal 61264-2) [facility] GLUCOSE (AUTOMATED)2021-04-05 16:41:44 Test Item Value Reference Range Interpretation Comments POCT GLU (test code = 1636987483) 112 mg/dL 70-110 H Lab Interpretation (test code = Abnormal 28823-8) [facility] [id number] 14:08:11 Test Item Value Reference Range Interpretation Comments NT-proBNP (test code 4150 pg/mL See_Comment H [Autom ated = 4659244441) message] The system which generated this result transmitted reference range : <=450. The reference range was not used to interpret this result as normal/abnormal . BRIGIDO (test code = BRIGIDO) Biotin has been reported to cause a negative bias, interpret results relative to patient's use of biotin. Lab Interpretation Abnormal (test code = 33039-3) [facility] GLUCOSE (AUTOMATED)2021-04-05 12:54:57 Test Item Value Reference Range Interpretation Comments POCT GLU (test code = 9833401184) 105 mg/dL 70-110 Lab Interpretation (test code = Normal 89969-7) [facility] GLUCOSE (AUTOMATED)2021-04-05 12:54:51 Test Item Value Reference Range Interpretation Comments POCT GLU (test code = 0216609940) 114 mg/dL 70-110 H Lab Interpretation (test code = Abnormal 96997-8) [facility] GLUCOSE (AUTOMATED)2021-04-05 12:54:51 Test Item Value Reference Range Interpretation Comments POCT GLU (test code = 8802252840) 124 mg/dL 70-110 H Lab Interpretation (test code = Abnormal 90429-6) [facility] WITH [id number] 11:46:12 Test Item Value Reference Range Interpretation Comments WBC (test code = See_Comment H [Automated 9390-2) message] The sy stem which generated this result transmitted reference range : 4.20 - 10.70 10*3/?L. The reference range was not used to interpret this result as normal/abnormal . RBC (test code = See_Comment [Automated 619-8) message] The sy stem which generated this result transmitted reference range : 4.26 - 5.52 10*6/?L. The reference range was not used to interpret this result as normal/abnormal . HGB (test code = 14.4 g/dL 12.2-16.4 718-7) HCT (test code = 44.5 % 38.4-49.3 4544-3) MCV (test code = 89.5 fL 81.7-95.6 787-2) MCH (test code = 29.0 pg 26.1-32.7 785-6) MCHC (test code = 32.4 g/dL 31.2-35.0 786-4) RDW-SD (test code = 46.3 fL 38.5-51.6 88926-2) RDW-CV (test code = 14.3 % 12.1-15.4 788-0) PLT (test code = See_Comment H [Automated 777-3) message] The sy stem which generated this result transmitted reference range : 150 - 328 10*3/ ?L. The reference r harvinder was not used to interpret this result as normal/abnormal . MPV (test code = 9.2 fL 9.8-13.0 L 42588-5) NRBC/100 WBC (test See_Comment [Automat ed code = 0151896077) message] The system which generated this result transmitted reference range : 0.0 - 10.0 /100 WBCs. The refer ence range was not u sed to interpret th is result as normal/abnormal . NRBC x10^3 (test code <0.01 See_Comment [Auto mated = 3776506262) message] The s ystem which generated this result transmitted reference range : 10*3/?L. The reference range was not used to interpret this result as normal/abnormal . GRAN MAT (NEUT) % 75.4 % (test code = 770-8) IMM GRAN % (test code 1.80 % = 7558841307) LYMPH % (test code = 7.1 % 736-9) MONO % (test code = 13.1 % 5905-5) EOS % (test code = 2.4 % 713-8) BASO % (test code = 0.2 % 706-2) GRAN MAT x10^3(ANC) 9.86 10*3/uL 1.99-6.95 H (test code = 7355695529) IMM GRAN x10^3 (test 0.23 10*3/uL 0.00-0.06 H code = 1903403047) LYMPH x10^3 (test code 0.93 10*3/uL 1.09-3.23 L = 731-0) MONO x10^3 (test code 1.72 10*3/uL 0.36-1.02 H = 742-7) EOS x10^3 (test code = 0.31 10*3/uL 0.06-0.53 711-2) BASO x10^3 (test code 0.03 10*3/uL 0.01-0.09 = 704-7) Lab Interpretation Abnormal (test code = 97391-4) [facility] METABOLIC PANEL (NA, K, CL, CO2, GLUCOSE, BUN, CREATININE, CA)2021-04-05 11:34:45 Test Item Value Reference Range Interpretation Comments NA (test code = 139 mmol/L 135-145 6126018199) K (test code = 3.6 mmol/L 3.5-5.0 7261392481) CL (test code = 103 mmol/L 98-108 0567700214) CO2 TOTAL (test code = 26 mmol/L 23-31 9016682779) AGAP (test code = 2-16 7361946046) BUN (test code = 23 mg/dL 7-23 7721182912) GLUCOSE (test code = 122 mg/dL 70-110 H 0473277550) CREATININE (test code = 1.32 mg/dL 0.60-1.25 H 1558361839) CALCIUM (test code = 9.4 mg/dL 8.6-10.6 8037078197) eGFR (test code = mL/min/1.73m2 7163629331) BRIGIDO (test code = BRIGIDO) Association of Glomerular Filtration Rate (GFR) and Staging of Kidney Disease* + --+ --+ ------+| GFR (mL/min/1.73 m2) ?| With Kidney Damage ?| ?Without Kidney Damage+ --------+ --------+ +| ?>90 ?| ?Stage one ?| ? Normal ?+ ---+ ---+ -------+| ?60-89 ?| ?Stage two ?| ? Decreased GFR ? + --+ --+ ------+| ?30-59 ?| ?Stage three ?| ? Stage three ? + --+ --+ ------+| ?15-29 ?| ?Stage four ? | ? Stage four ?+ ---+ ---+ -------+| ?<15 (or dialysis) ? ?| ?Stage five ? | ? Stage five ?+ ---+ ---+ -------+ *Each stage assumes the associated GFR level has been in effect for at least three months. ?Stages 1 to 5, with or without kidney disease, indicate chronic kidney disease. Notes: Determination of stages one and two (with eGFR >59mL/min/1.73 m2) requires estimation of kidney damage for at least three months as defined by structural or functional abnormalities of the kidney, manifested by either:Pathological abnormalities or Markers of kidney damage (including abnormalities in the composition of the blood or urine or abnormalities in imaging tests). Lab Interpretation Abnormal (test code = 63900-9) [facility] 11:34:45 Test Item Value Reference Range Interpretation Comments MAGNESIUM (test code = 6736493977) 1.9 mg/dL 1.7-2.4 Lab Interpretation (test code = Normal 52211-9) [facility]21-[facility]-05 01:33:32 Test Item Value Reference Range Interpretation Comments POCT GLU (test code = 9332458134) 124 mg/dL 70-110 H Lab Interpretation (test code = Abnormal 69477-2) [facility]21[facility] 16:32:38 Test Item Value Reference Range Interpretation Comments Procalcitonin (test 0.13 ng/mL <0.07 H code = 0758352046) BRIGIDO (test code = BRIGIDO) INTERPRETATION OF PROCALCITONIN RESULTS IN ADULTS >= 18 YEARS OF AGE Initiation and discontinuation of antibiotics on patients with suspected or confirmed Lower Respiratory Tract Infection in Adults >= 18 years of age. + +-------- --------+ + -----+|Procalcitonin |Interpretation ?|Antibiotic ? ? |Considerations ? |ng/mL ? | ?|recommendation | ? + +-------- --------+ + -----+| <0.1 ? | Bacterial ? ? ?| Strongly ? ? ?| ? | ?| infection very | discouraged ? | Overruling: ? | ?| unlikely ? ? ? | ? | ? Clinically unstable ? ? ? + +-------- --------+ + ? High risk for adverse ? ? | <0.25 ?| Bacterial ? ? ?| Discouraged ? | ? outcome ? | ?| infection ? ? ?| ? | ? SEE IMPORTANT NOTE ?| ?| unlikely ? ? ? | ? | ? + +-------- --------+ + -----+| >=0.25 ? ? ? | Bacterial ? ? ?| Encouraged ? ?| ? | ?| infection ? ? ?| ? | ? | ?| likely ? | ? | Consider treatment failure ?+ +------- ---------+ -+ if levels does not decrease | >0.5 ? | Bacterial ? ? ?| Strongly ? ? ?| appropriately ? | ?| infection very | encouraged ? ?| ? | ?| likely ? | ? | ? + +-------- --------+ + -----+ Discontinuation of antibiotics in high-acuity patients with suspected or confirmed sepsis in Adults >= 18 years of age. + +-------- --------+ + -----+|Procalcitonin |Interpretation ?|Antibiotic ? ? |Considerations ? |ng/mL ? | ?|recommendation | ? + +-------- --------+ + -----+| <0.25 ?| Bacterial ? ? ?| Strongly ? ? ?| ? | ?| infection very | discouraged ? | Overruling: ? | ?| unlikely ? ? ? | ? | ? Clinically unstable ? ? ? + +-------- --------+ + ? High risk for adverse ? ? | <0.5 or drop | Bacterial ? ? ?| Discouraged ? | ? outcome ? | >80% from ? ?| infection ? ? ?| ? | ? SEE IMPORTANT NOTE ?| highest PCT ?| unlikely ? ? ? | ? | ? | level ?| ?| ? | ? + +-------- --------+ + -----+| >=0.5 ?| Bacterial ? ? ?| Encouraged ? ?| ? | ?| infection ? ? ?| ? | ? | ?| likely ? | ? | Consider treatment failure ?+ +------- ---------+ -+ if levels does not decrease | >1.0 ? | Bacterial ? ? ?| Strongly ? ? ?| appropriately ? | ?| infection very | encouraged ? ?| ? | ?| likely ? | ? | ? + +-------- --------+ + -----+ Percentage of drop of Procalcitonin calculation for Discontinuation of antibiotics in high-acuity patients with suspected or confirmed sepsis in Adults >= 18 years of age. ? Procalcitonin highest{}-Procalcitonin current{}Delta Procalcitonin = x100% ? Procalcitonin current {} IMPORTANT NOTE: Procalcitonin may be elevated without bacterial infection by physiologic stress related to trauma, sanderson, chronic dialysis, metastatic cancer, surgery in the past seven days, malaria, some fungal infections, and some forms of vasculitis. The interpretation algorithm may not apply to patients with immunosuppression (equivalent of >10 mg of prednisone daily), HIV with CD4 cell count < 350 cells/mm3, active malignancy on systemic chemotherapy, solid organ transplant or hematopoietic stem cell transplantation, or hospital acquired pneumonia. Additionally, some clinical trials of procalcitonin have excluded patients with shock requiring vasopressor use, acute respiratory failure requiring mechanical ventilation, or those with known lung abscess/empyema. For further information please refer to:[email or web address] Lab Interpretation Abnormal (test code = 18263-7) [facility]21-[facility] 12:49:52 Test Item Value Reference Range Interpretation Comments POCT GLU (test code = 6062753358) 144 mg/dL 70-110 H Lab Interpretation (test code = Abnormal 77662-5) [facility] 11:17:31 Test Item Value Reference Range Interpretation Comments MAGNESIUM (test code = 7885303738) 1.9 mg/dL 1.7-2.4 Lab Interpretation (test code = Normal 52659-6) [facility] METABOLIC PANEL (NA, K, CL, CO2, GLUCOSE, BUN, CREATININE, CA)2021-04-04 11:17:11 Test Item Value Reference Range Interpretation Comments NA (test code = 136 mmol/L 135-145 5061409869) K (test code = 3.8 mmol/L 3.5-5.0 3462370572) CL (test code = 104 mmol/L 98-108 8412488732) CO2 TOTAL (test code = 24 mmol/L 23-31 7296572298) AGAP (test code = 2-16 6556896917) BUN (test code = 22 mg/dL 7-23 5962554794) GLUCOSE (test code = 135 mg/dL 70-110 H 4705658291) CREATININE (test code = 1.14 mg/dL 0.60-1.25 6259105852) CALCIUM (test code = 9.0 mg/dL 8.6-10.6 5546930350) eGFR (test code = mL/min/1.73m2 7085475164) BRIGIDO (test code = BRIGIDO) Association of Glomerular Filtration Rate (GFR) and Staging of Kidney Disease* + --+ --+ ------+| GFR (mL/min/1.73 m2) ?| With Kidney Damage ?| ?Without Kidney Damage+ --------+ --------+ +| ?>90 ?| ?Stage one ?| ? Normal ?+ ---+ ---+ -------+| ?60-89 ?| ?Stage two ?| ? Decreased GFR ? + --+ --+ ------+| ?30-59 ?| ?Stage three ?| ? Stage three ? + --+ --+ ------+| ?15-29 ?| ?Stage four ? | ? Stage four ?+ ---+ ---+ -------+| ?<15 (or dialysis) ? ?| ?Stage five ? | ? Stage five ?+ ---+ ---+ -------+ *Each stage assumes the associated GFR level has been in effect for at least three months. ?Stages 1 to 5, with or without kidney disease, indicate chronic kidney disease. Notes: Determination of stages one and two (with eGFR >59mL/min/1.73 m2) requires estimation of kidney damage for at least three months as defined by structural or functional abnormalities of the kidney, manifested by either:Pathological abnormalities or Markers of kidney damage (including abnormalities in the composition of the blood or urine or abnormalities in imaging tests). Lab Interpretation Abnormal (test code = 79461-0) [facility] [id number] 11:15:50 Test Item Value Reference Range Interpretation Comments NT-proBNP (test code 4620 pg/mL See_Comment H [Autom ated = 8018316139) message] The system which generated this result transmitted reference range : <=450. The reference range was not used to interpret this result as normal/abnormal . BRIGIDO (test code = BRIGIDO) Biotin has been reported to cause a negative bias, interpret results relative to patient's use of biotin. Lab Interpretation Abnormal (test code = 24806-8) [facility] WITH [id number] 10:38:29 Test Item Value Reference Range Interpretation Comments WBC (test code = See_Comment H [Automated 4520-2) message] The sy stem which generated this result transmitted reference range : 4.20 - 10.70 10*3/?L. The reference range was not used to interpret this result as normal/abnormal . RBC (test code = See_Comment [Automated 176-8) message] The sy stem which generated this result transmitted reference range : 4.26 - 5.52 10*6/?L. The reference range was not used to interpret this result as normal/abnormal . HGB (test code = 13.5 g/dL 12.2-16.4 718-7) HCT (test code = 40.5 % 38.4-49.3 4544-3) MCV (test code = 88.4 fL 81.7-95.6 787-2) MCH (test code = 29.5 pg 26.1-32.7 785-6) MCHC (test code = 33.3 g/dL 31.2-35.0 786-4) RDW-SD (test code = 45.8 fL 38.5-51.6 69066-6) RDW-CV (test code = 14.3 % 12.1-15.4 788-0) PLT (test code = See_Comment [Automated 777-3) message] The sy stem which generated this result transmitted reference range : 150 - 328 10*3/ ?L. The reference r harvinder was not used to interpret this result as normal/abnormal . MPV (test code = 9.3 fL 9.8-13.0 L 53549-7) NRBC/100 WBC (test See_Comment [Automat ed code = 0298719541) message] The system which generated this result transmitted reference range : 0.0 - 10.0 /100 WBCs. The refer ence range was not u sed to interpret th is result as normal/abnormal . NRBC x10^3 (test code <0.01 See_Comment [Auto mated = 0353105289) message] The s ystem which generated this result transmitted reference range : 10*3/?L. The reference range was not used to interpret this result as normal/abnormal . GRAN MAT (NEUT) % 79.9 % (test code = 770-8) IMM GRAN % (test code 0.60 % = 5008762174) LYMPH % (test code = 5.7 % 736-9) MONO % (test code = 11.6 % 5905-5) EOS % (test code = 2.0 % 713-8) BASO % (test code = 0.2 % 706-2) GRAN MAT x10^3(ANC) 9.87 10*3/uL 1.99-6.95 H (test code = 7147660866) IMM GRAN x10^3 (test 0.08 10*3/uL 0.00-0.06 H code = 4039813323) LYMPH x10^3 (test code 0.71 10*3/uL 1.09-3.23 L = 731-0) MONO x10^3 (test code 1.43 10*3/uL 0.36-1.02 H = 742-7) EOS x10^3 (test code = 0.25 10*3/uL 0.06-0.53 711-2) BASO x10^3 (test code 0.03 10*3/uL 0.01-0.09 = 704-7) Lab Interpretation Abnormal (test code = 91616-3) [facility] CULTURE [id number] 08:01:11 Test Item Value Reference Range Interpretation Comments Blood Culture-Aerobic No organisms No growth Previo us (test code = 57833-5) isolated prelim inary verified result was Culture In Progress on 03/30/2021 at 060 1 CDTPrevious preliminary verified result was No growth a t 24 hours on 03/31/2021 at 030 1 CDTPrevious preliminary verified result was No growth a t 48 hours on 04/01/2021 at 030 1 CDTPrevious preliminary verified result was No growth a t 72 hours on 04/02/2021 at 030 1 CDT Blood No organisms No growth Previous Culture-Anaerobic isolated preliminar y (test code = 97820-8) verifi ed result was Culture In Progress on 03/30/2021 at 060 1 CDTPrevious preliminary verified result was No growth a t 24 hours on 03/31/2021 at 030 1 CDTPrevious preliminary verified result was No growth a t 48 hours on 04/01/2021 at 030 1 CDTPrevious preliminary verified result was No growth a t 72 hours on 04/02/2021 at 030 1 CDT Lab Interpretation Normal (test code = 28891-4) [facility] CULTURE [id number] 08:01:11 Test Item Value Reference Range Interpretation Comments Blood Culture-Aerobic No organisms No growth Previo us (test code = 01273-0) isolated prelim inary verified result was Culture In Progress on 03/30/2021 at 060 1 CDTPrevious preliminary verified result was No growth a t 24 hours on 03/31/2021 at 030 1 CDTPrevious preliminary verified result was No growth a t 48 hours on 04/01/2021 at 030 1 CDTPrevious preliminary verified result was No growth a t 72 hours on 04/02/2021 at 030 1 CDT Blood No organisms No growth Previous Culture-Anaerobic isolated preliminar y (test code = 83245-9) verifi ed result was Culture In Progress on 03/30/2021 at 060 1 CDTPrevious preliminary verified result was No growth a t 24 hours on 03/31/2021 at 030 1 CDTPrevious preliminary verified result was No growth a t 48 hours on 04/01/2021 at 030 1 CDTPrevious preliminary verified result was No growth a t 72 hours on 04/02/2021 at 030 1 CDT Lab Interpretation Normal (test code = 06428-9) [facility] GLUCOSE (AUTOMATED)2021-04-04 02:08:34 Test Item Value Reference Range Interpretation Comments POCT GLU (test code = 9898494545) 124 mg/dL 70-110 H Lab Interpretation (test code = Abnormal 30591-2) [facility] GLUCOSE (AUTOMATED)2021-04-03 22:37:53 Test Item Value Reference Range Interpretation Comments POCT GLU (test code = 2103346554) 117 mg/dL 70-110 H Lab Interpretation (test code = Abnormal 18255-2) [facility] GLUCOSE (AUTOMATED)2021-04-03 17:11:58 Test Item Value Reference Range Interpretation Comments POCT GLU (test code = 5195640902) 119 mg/dL 70-110 H Lab Interpretation (test code = Abnormal 05012-2) [facility] GLUCOSE (AUTOMATED)2021-04-03 13:39:13 Test Item Value Reference Range Interpretation Comments POCT GLU (test code = 5127053821) 127 mg/dL 70-110 H Lab Interpretation (test code = Abnormal 57339-3) [facility] [id number] 11:26:17 Test Item Value Reference Range Interpretation Comments NT-proBNP (test code 5250 pg/mL See_Comment H [Autom ated = 0072846270) message] The system which generated this result transmitted reference range : <=450. The reference range was not used to interpret this result as normal/abnormal . BRIGIDO (test code = BRIGIDO) Biotin has been reported to cause a negative bias, interpret results relative to patient's use of biotin. Lab Interpretation Abnormal (test code = 01886-0) [facility] METABOLIC PANEL (NA, K, CL, CO2, GLUCOSE, BUN, CREATININE, CA)2021-04-03 11:21:19 Test Item Value Reference Range Interpretation Comments NA (test code = 134 mmol/L 135-145 L 7083400711) K (test code = 3.5 mmol/L 3.5-5.0 9920931837) CL (test code = 102 mmol/L 98-108 4399484876) CO2 TOTAL (test code = 23 mmol/L 23-31 2882196729) AGAP (test code = 2-16 4440742537) BUN (test code = 17 mg/dL 7-23 3947307240) GLUCOSE (test code = 138 mg/dL 70-110 H 8094476265) CREATININE (test code = 0.97 mg/dL 0.60-1.25 0575455625) CALCIUM (test code = 9.1 mg/dL 8.6-10.6 1729398238) eGFR (test code = mL/min/1.73m2 1706024586) BRIGIDO (test code = BRIGIDO) Association of Glomerular Filtration Rate (GFR) and Staging of Kidney Disease* + --+ --+ ------+| GFR (mL/min/1.73 m2) ?| With Kidney Damage ?| ?Without Kidney Damage+ --------+ --------+ +| ?>90 ?| ?Stage one ?| ? Normal ?+ ---+ ---+ -------+| ?60-89 ?| ?Stage two ?| ? Decreased GFR ? + --+ --+ ------+| ?30-59 ?| ?Stage three ?| ? Stage three ? + --+ --+ ------+| ?15-29 ?| ?Stage four ? | ? Stage four ?+ ---+ ---+ -------+| ?<15 (or dialysis) ? ?| ?Stage five ? | ? Stage five ?+ ---+ ---+ -------+ *Each stage assumes the associated GFR level has been in effect for at least three months. ?Stages 1 to 5, with or without kidney disease, indicate chronic kidney disease. Notes: Determination of stages one and two (with eGFR >59mL/min/1.73 m2) requires estimation of kidney damage for at least three months as defined by structural or functional abnormalities of the kidney, manifested by either:Pathological abnormalities or Markers of kidney damage (including abnormalities in the composition of the blood or urine or abnormalities in imaging tests). Lab Interpretation Abnormal (test code = 93273-9) [facility] 11:21:19 Test Item Value Reference Range Interpretation Comments MAGNESIUM (test code = 4449586719) 1.8 mg/dL 1.7-2.4 Lab Interpretation (test code = Normal 36240-9) [facility] WITH [id number] 11:10:36 Test Item Value Reference Range Interpretation Comments WBC (test code = See_Comment H [Automated 9190-2) message] The system which generated this result transmit chava reference range : 4.20 - 10.70 10*3/?L. The reference range was not used to interpret this result as normal/abnormal . RBC (test code = See_Comment [Automated 079-8) message] The system which generated this result transmit chava reference range : 4.26 - 5.52 10*6/?L. The reference range was not used to interpret this result as normal/abnormal . HGB (test code = 14.1 g/dL 12.2-16.4 718-7) HCT (test code = 42.5 % 38.4-49.3 4544-3) MCV (test code = 88.7 fL 81.7-95.6 787-2) MCH (test code = 29.4 pg 26.1-32.7 785-6) MCHC (test code = 33.2 g/dL 31.2-35.0 786-4) RDW-SD (test code = 46.4 fL 38.5-51.6 85850-4) RDW-CV (test code = 14.2 % 12.1-15.4 788-0) PLT (test code = See_Comment [Automated 777-3) message] The system which generated this result transmit chava reference range : 150 - 328 10*3/ ?L. The reference range was not u sed to interpret th is result as normal/abnormal . MPV (test code = 9.3 fL 9.8-13.0 L 97533-9) NRBC/100 WBC (test See_Comment [Automat ed code = 9216048745) message] The system which generated this result transmit chava reference range : 0.0 - 10.0 /100 WBCs. The reference range was not used to interpret this result as normal/abnormal . NRBC x10^3 (test code <0.01 See_Comment [Auto mated = 2911096045) message] The system which generated this result transmit chava reference range : 10*3/?L. The reference range was not used to interpret this result as normal/abnormal . GRAN MAT (NEUT) % 80.5 % (test code = 770-8) IMM GRAN % (test code 0.70 % = 8901205312) LYMPH % (test code = 6.3 % 736-9) MONO % (test code = 11.0 % 5905-5) EOS % (test code = 1.3 % 713-8) BASO % (test code = 0.2 % 706-2) GRAN MAT x10^3(ANC) 10.96 10*3/uL 1.99-6.95 H (test code = 8533171223) IMM GRAN x10^3 (test 0.10 10*3/uL 0.00-0.06 H code = 0928686962) LYMPH x10^3 (test code 0.85 10*3/uL 1.09-3.23 L = 731-0) MONO x10^3 (test code 1.49 10*3/uL 0.36-1.02 H = 742-7) EOS x10^3 (test code = 0.17 10*3/uL 0.06-0.53 711-2) BASO x10^3 (test code 0.03 10*3/uL 0.01-0.09 = 704-7) Lab Interpretation Abnormal (test code = 19460-3) [facility] [id number] 03:58:26Impression: Stable cardiomegaly. Hazy opacities in the right midlung, new or more pronounced compared to theprevious exam, suggestive of pneumonia. Follow-up is recommended to ensureresolution. Small left pleural effusion. RL: [id number] AFC: [id number] Ordering physician: SARAH HAMLIN Indication: Pneumonia Comparison: Chest dated 03/30/2021 Findings: Single AP view of the chest. The cardiopericardial silhouette isstably enlarged. There arehazy opacities in the right midlung. There is asmall left pleural effusion. The visualized bony thorax is intact. [facility], Radiant Results Inft User - 04/02/2021 10:59 PM CDT Ordering physician: SARAH HAMLINIndication: PneumoniaComparison: Chest dated 03/30/2021Findings: Single AP view of the chest. The cardiopericardial silhouette isstably enlarged. There are hazy opacities in the right midlung. There is asmall left pleural effusion. The visualized bony thorax is intact.IMPRESSIONImpression:Stable cardiomegaly.Hazy opacities in the right midlung, new or more pronounced compared to theprevious exam, suggestive of pneumonia. Follow-up is recommended to ensureresolution.Small left pleural effusion.RL: [id number]: [id number] signed by Ninoska Avila MD, PhD at 04/02/2021 10:58 PMUnCH[facility]PO[facility] GLUCOSE (AUTOMATED) 2021-04-03 01:10:23 Test Item Value Reference Range Interpretation Comments POCT GLU (test code = 3412906188) 131 mg/dL 70-110 H Lab Interpretation (test code = Abnormal 09036-9) [facility] Center[facility]YCOSYLATED HEMOGLOBIN (A1C)2021-04-02 18:08:22 Test Item Value Reference Range Interpretation Comments HGB A1C (test code = 6.9 % 4.0-5.7 H 4548-4) BRIGIDO (test code = BRIGIDO) Reference RangesNormal: <5.7%Prediabetes: 5.7 - 6.4%Diabetes: > 6.5% Lab Interpretation (test Abnormal code = 53519-5) [facility] METABOLIC PANEL ([id number])2021-04-02 11:15:24 Test Item Value Reference Range Interpretation Comments NA (test code = 136 mmol/L 135-145 1017310904) K (test code = 3.9 mmol/L 3.5-5.0 6919536209) CL (test code = 106 mmol/L 98-108 0904869499) CO2 TOTAL (test code = 21 mmol/L 23-31 L 3199434622) AGAP (test code = 2-16 6132452888) BUN (test code = 15 mg/dL 7-23 8334082204) GLUCOSE (test code = 188 mg/dL 70-110 H 2019303415) CREATININE (test code = 1.13 mg/dL 0.60-1.25 9721843662) TOTAL BILI (test code = 0.5 mg/dL 0.1-1.3 3536983484) CALCIUM (test code = 8.8 mg/dL 8.6-10.6 5901738266) T PROTEIN (test code = 5.5 g/dL 6.3-8.2 L 7457570430) ALBUMIN (test code = 2.8 g/dL 3.5-5.0 L 3525600191) ALK PHOS (test code = 78 U/L 34-122 6761164145) ALTv (test code = 7 U/L 5-50 1742-6) AST(SGOT) (test code = 16 U/L 13-40 6508666691) eGFR (test code = mL/min/1.73m2 4659194517) BRIGIDO (test code = BRIGIDO) Association of Glomerular Filtration Rate (GFR) and Staging of Kidney Disease* + --+ --+ ------+| GFR (mL/min/1.73 m2) ?| With Kidney Damage ?| ?Without Kidney Damage+ --------+ --------+ +| ?>90 ?| ?Stage one ?| ? Normal ?+ ---+ ---+ -------+| ?60-89 ?| ?Stage two ?| ? Decreased GFR ? + --+ --+ ------+| ?30-59 ?| ?Stage three ?| ? Stage three ? + --+ --+ ------+| ?15-29 ?| ?Stage four ? | ? Stage four ?+ ---+ ---+ -------+| ?<15 (or dialysis) ? ?| ?Stage five ? | ? Stage five ?+ ---+ ---+ -------+ *Each stage assumes the associated GFR level has been in effect for at least three months. ?Stages 1 to 5, with or without kidney disease, indicate chronic kidney disease. Notes: Determination of stages one and two (with eGFR >59mL/min/1.73 m2) requires estimation of kidney damage for at least three months as defined by structural or functional abnormalities of the kidney, manifested by either:Pathological abnormalities or Markers of kidney damage (including abnormalities in the composition of the blood or urine or abnormalities in imaging tests). Lab Interpretation Abnormal (test code = 57841-8) [facility] WITH [id number] 10:49:42 Test Item Value Reference Range Interpretation Comments WBC (test code = See_Comment H [Automated 5856-2) message] The system which generated this result transmit chava reference range : 4.20 - 10.70 10*3/?L. The reference range was not used to interpret this result as normal/abnormal . RBC (test code = See_Comment [Automated 319-8) message] The system which generated this result transmit chava reference range : 4.26 - 5.52 10*6/?L. The reference range was not used to interpret this result as normal/abnormal . HGB (test code = 13.4 g/dL 12.2-16.4 718-7) HCT (test code = 40.9 % 38.4-49.3 4544-3) MCV (test code = 89.5 fL 81.7-95.6 787-2) MCH (test code = 29.3 pg 26.1-32.7 785-6) MCHC (test code = 32.8 g/dL 31.2-35.0 786-4) RDW-SD (test code = 47.3 fL 38.5-51.6 54521-5) RDW-CV (test code = 14.5 % 12.1-15.4 788-0) PLT (test code = See_Comment [Automated 777-3) message] The system which generated this result transmit chava reference range : 150 - 328 10*3/ ?L. The reference range was not u sed to interpret th is result as normal/abnormal . MPV (test code = 9.7 fL 9.8-13.0 L 74351-5) NRBC/100 WBC (test See_Comment [Automat ed code = 1564978733) message] The system which generated this result transmit chava reference range : 0.0 - 10.0 /100 WBCs. The reference range was not used to interpret this result as normal/abnormal . NRBC x10^3 (test code <0.01 See_Comment [Auto mated = 9471660101) message] The system which generated this result transmit chava reference range : 10*3/?L. The reference range was not used to interpret this result as normal/abnormal . GRAN MAT (NEUT) % 85.3 % (test code = 770-8) IMM GRAN % (test code 0.50 % = 2248467784) LYMPH % (test code = 4.5 % 736-9) MONO % (test code = 8.6 % 5905-5) EOS % (test code = 0.9 % 713-8) BASO % (test code = 0.2 % 706-2) GRAN MAT x10^3(ANC) 13.80 10*3/uL 1.99-6.95 H (test code = 9463568804) IMM GRAN x10^3 (test 0.08 10*3/uL 0.00-0.06 H code = 0481459883) LYMPH x10^3 (test code 0.72 10*3/uL 1.09-3.23 L = 731-0) MONO x10^3 (test code 1.39 10*3/uL 0.36-1.02 H = 742-7) EOS x10^3 (test code = 0.14 10*3/uL 0.06-0.53 711-2) BASO x10^3 (test code 0.04 10*3/uL 0.01-0.09 = 704-7) Lab Interpretation Abnormal (test code = 81378-6) [facility] [id number] 18:53:38 Test Item Value Reference Range Interpretation Comments NT-proBNP (test code 4360 pg/mL See_Comment H [Autom ated = 9396157219) message] The system which generated this result transmitted reference range : <=450. The reference range was not used to interpret this result as normal/abnormal . BRIGIDO (test code = BRIGIDO) Biotin has been reported to cause a negative bias, interpret results relative to patient's use of biotin. Lab Interpretation Abnormal (test code = 85354-1) [facility] MODIFIED BARIUM [id number] 17:23:46 1. ?Laryngeal penetration without aspiration. 2. ?Please see separate Speech Pathology report for recommendations andadditional findings.EXAM: [place] MODIFIED BARIUM SWALLOW HISTORY: 85 years old Male with concern for aspiration TECHNIQUE: A video swallowing exam with fluoroscopy was performed inconjunction with Speech Pathology who administered multiple consistenciesof barium. Fluoroscopy was performed under the supervision of aradiologist. COMPARISON: Modified barium swallow, 06/26/2020 FINDINGS:Statements: None. Pharynx: Laryngeal penetration. No aspiration Other: None. [facility], Radiant Results Inft User - 04/01/2021 12:24 PM CDT EXAM: [place] MODIFIED BARIUM SWALLOWHISTORY: 85 years old Male with concern for aspiration TECHNIQUE: A video swallowing exam with fluoroscopy was performed inconjunction with Speech Pathology who administered multiple consistenciesof barium. Fluoroscopy was performed under the supervision of aradiologist. COMPARISON: Modified barium swallow, 06/26/2020FINDINGS:Statements: None.Pharynx: Laryngeal penetration. No aspirationOther: None.IMPRESSION1. Laryngeal penetration without aspiration.2. Please see separate Speech Pathology report for recommendations andadditional findings.[facility] WITH [id number] 12:34:21 Test Item Value Reference Range Interpretation Comments WBC (test code = See_Comment H [Automated 5690-2) message] The system which generated this result transmit chava reference range : 4.20 - 10.70 10*3/?L. The reference range was not used to interpret this result as normal/abnormal . RBC (test code = See_Comment [Automated 259-8) message] The system which generated this result transmit chava reference range : 4.26 - 5.52 10*6/?L. The reference range was not used to interpret this result as normal/abnormal . HGB (test code = 13.8 g/dL 12.2-16.4 718-7) HCT (test code = 41.6 % 38.4-49.3 4544-3) MCV (test code = 89.8 fL 81.7-95.6 787-2) MCH (test code = 29.8 pg 26.1-32.7 785-6) MCHC (test code = 33.2 g/dL 31.2-35.0 786-4) RDW-SD (test code = 47.9 fL 38.5-51.6 77122-2) RDW-CV (test code = 14.6 % 12.1-15.4 788-0) PLT (test code = See_Comment [Automated 777-3) message] The system which generated this result transmit chava reference range : 150 - 328 10*3/ ?L. The reference range was not u sed to interpret th is result as normal/abnormal . MPV (test code = 9.9 fL 9.8-13.0 08584-4) NRBC/100 WBC (test See_Comment [Automat ed code = 7557505298) message] The system which generated this result transmit chava reference range : 0.0 - 10.0 /100 WBCs. The reference range was not used to interpret this result as normal/abnormal . NRBC x10^3 (test code <0.01 See_Comment [Auto mated = 8889831963) message] The system which generated this result transmit chava reference range : 10*3/?L. The reference range was not used to interpret this result as normal/abnormal . GRAN MAT (NEUT) % 89.5 % (test code = 770-8) IMM GRAN % (test code 0.60 % = 3534586345) LYMPH % (test code = 3.6 % 736-9) MONO % (test code = 5.8 % 5905-5) EOS % (test code = 0.4 % 713-8) BASO % (test code = 0.1 % 706-2) GRAN MAT x10^3(ANC) 15.27 10*3/uL 1.99-6.95 H (test code = 5202306520) IMM GRAN x10^3 (test 0.10 10*3/uL 0.00-0.06 H code = 7490001616) LYMPH x10^3 (test code 0.62 10*3/uL 1.09-3.23 L = 731-0) MONO x10^3 (test code 0.99 10*3/uL 0.36-1.02 = 742-7) EOS x10^3 (test code = 0.06 10*3/uL 0.06-0.53 711-2) BASO x10^3 (test code <0.03 0.01-0.09 = 704-7) BANDS (test code = Increased A 5531293937) Lab Interpretation Abnormal (test code = 42391-8) [facility]. METABOLIC PANEL ([id number])2021-04-01 10:30:37 Test Item Value Reference Range Interpretation Comments NA (test code = 136 mmol/L 135-145 4835959299) K (test code = 4.8 mmol/L 3.5-5.0 5440282730) CL (test code = 110 mmol/L 98-108 H 1277786802) CO2 TOTAL (test code = 17 mmol/L 23-31 L 7433802679) AGAP (test code = 2-16 3773121781) BUN (test code = 18 mg/dL 7-23 4570246465) GLUCOSE (test code = 184 mg/dL 70-110 H 2333123167) CREATININE (test code = 1.10 mg/dL 0.60-1.25 0199921494) TOTAL BILI (test code = 0.5 mg/dL 0.1-1.8 3759607501) CALCIUM (test code = 8.9 mg/dL 8.6-10.6 5648804841) T PROTEIN (test code = 5.6 g/dL 6.3-8.2 L 2654442588) ALBUMIN (test code = 2.8 g/dL 3.5-5.0 L 5581199768) ALK PHOS (test code = 77 U/L 34-122 0278067703) ALTv (test code = 7 U/L 5-50 1742-6) AST(SGOT) (test code = 20 U/L 13-40 5302625759) eGFR (test code = mL/min/1.73m2 5507345312) BRIGIDO (test code = BRIGIDO) Association of Glomerular Filtration Rate (GFR) and Staging of Kidney Disease* + --+ --+ ------+| GFR (mL/min/1.73 m2) ?| With Kidney Damage ?| ?Without Kidney Damage+ --------+ --------+ +| ?>90 ?| ?Stage one ?| ? Normal ?+ ---+ ---+ -------+| ?60-89 ?| ?Stage two ?| ? Decreased GFR ? + --+ --+ ------+| ?30-59 ?| ?Stage three ?| ? Stage three ? + --+ --+ ------+| ?15-29 ?| ?Stage four ? | ? Stage four ?+ ---+ ---+ -------+| ?<15 (or dialysis) ? ?| ?Stage five ? | ? Stage five ?+ ---+ ---+ -------+ *Each stage assumes the associated GFR level has been in effect for at least three months. ?Stages 1 to 5, with or without kidney disease, indicate chronic kidney disease. Notes: Determination of stages one and two (with eGFR >59mL/min/1.73 m2) requires estimation of kidney damage for at least three months as defined by structural or functional abnormalities of the kidney, manifested by either:Pathological abnormalities or Markers of kidney damage (including abnormalities in the composition of the blood or urine or abnormalities in imaging tests). Lab Interpretation Abnormal (test code = 39770-9) [facility] GALL [id number] 19:45:57 Hydropic gallbladder without evidence of cholelithiasis. No sonographicevidence of acute cholecystitis. I, Airam Bates MD., have reviewed this study and agree with the abovereport.EXAM: US GALL BLADDER HISTORY: 85 years-old Male with RUQ US for possible acute cholecystitis . TECHNIQUE: Limited abdominal ultrasound performed focused on thegallbladder. Main portal vein was evaluated with color Doppler imaging.[employer] images were obtained for the record. COMPARISON: None FINDINGS: LIVER: Normal parenchymal echogenicity and echotexture. No focal lesionidentified. Hepatopetal flow in the main portal vein. The main portal veinmeasures 1.0 cm in transverse diameter at the jeremiah hepatis. GALLBLADDER:No cholelithiasis. Hydropic gallbladder measuring 9.7 x 5.3 x 5.5 cm.Normal gallbladder wall thickness, 3.0 mm.Negative sonographic Ríos's sign. BILE DUCTS:No intra- or extrahepatic biliary dilatation.Common Duct diameter: 4.0 mm. PANCREAS: Limited visualization due to shadowing from bowel gas. OTHER: None. [facility], Radiant Results Inft User - 03/31/2021 2:47 PM CDT EXAM: US GALL BLADDERHISTORY: 85 years-old Male with RUQ US for possible acute cholecystitis .TECHNIQUE: Limited abdominal ultrasound performed focused on thegallbladder. Main portal vein was evaluated with color Doppler imaging.[employer] images were obtained for the record.COMPARISON: NoneFINDINGS: LIVER: Normal parenchymal echogenicity and echotexture. No focallesionidentified. Hepatopetal flow in the main portal vein. The main portal veinmeasures 1.0 cm in transverse diameter at the jeremiah hepatis.GALLBLADDER:No cholelithiasis. Hydropic gallbladder measuring9.7 x 5.3 x 5.5 cm.Normal gallbladder wall thickness, 3.0 mm.Negative sonographic Ríos's sign.BILEDUCTS:No intra- or extrahepatic biliary dilatation.Common Duct diameter: 4.0 mm.PANCREAS: Limited visualization due to shadowing from bowel gas. OTHER: None. IMPRESSIONHydropic gallbladder without evidence of cholelithiasis. No sonographicevidence of acute cholecystitis.Airam Goddard MD., have reviewed this study and agree with the abovereport.[facility] 1 [id number] 18:23:09 Left lower lung retrocardiac airspace opacity, could be seen withaspiration or developing infection. Preliminary Report Dictated by Resident: Murray Lynch MD., have reviewed this study and agree with the abovereport.EXAM: XR CHEST 1 VW COMPARISON: Chest x-ray 03/12/2021 HISTORY: Fever ? TECHNIQUE: Frontal view of the chest was obtained. FINDINGS: Lungs/pleura: ?The lungs demonstrateleft lower lung retrocardiac airspaceopacity. No pleural effusion or pneumothorax is identified. Heart/Mediastinum: The cardiac silhouette is normal in size. Calcifiedaortic arch. No acute osseous abnormality. Degenerative changes of bilateralacromioclavicular and glenohumeral joints. Surgical clips project over theupper abdomen. [facility], Radiant Results Inft User - 03/31/2021 1:24 PM CDT EXAM: XR CHEST 1 VWCOMPARISON: Chest x-ray 03/12/2021HISTORY: Fever TECHNIQUE: Frontal view of the chest was obtained.FINDINGS:Lungs/pleura: The lungs demonstrate left lower lung retrocardiac airspaceopacity. No pleural effusion or pneumothorax is identified.Heart/Mediastinum: The cardiac silhouette is normal in size. Calcifiedaortic arch.No acute osseous abnormality. Degenerative changes of bilateralacromioclavicular and glenohumeral joints. Surgical clips project over theupper abdomen.IMPRESSIONLeft lower lung retrocardiac airspace opacity, could be seen withaspiration or developing infection.Preliminary Report Dictated by Resident: Murray Serrano MD., have reviewed this study and agree with the abovereport.[facility] CenterLAB ONLY COVID [id number] 17:28:16COVID DMT InterpretationInterpretation/Recommendations: Molecular NAAT Tests for Active Infection with the SARS-CoV-2 Virus: The patient has currently tested negative for the SARS-CoV-2 virus that causes COVID-19 illness. This most likely indicates that the patient does not have an active infection with the SARS-CoV-2 virus. However, infection is not completely ruled out as the false negative rate for molecular NAAT testing using a nasopharyngeal sample can be up to 30%, mostly dependent on the timing of sample collection in relation to illness onset and any deficiencies in sampling techniques. If the patient has symptoms concerning for COVID-19 illness, a repeat NAAT test (PCR, Rapid ID Now, etc.) should be performed, at which time the SARS-CoV-2 virus - if present - may have reached a detectable viral load (usually peaking by the end of the first week of symptoms). Tests for IgM and/or IgGAntibodies to the SARS-CoV-2 Virus: If the patient develops COVID-19 illness in the future, testingfor IgM and IgG antibodies approximately 3 weeks after illness onset will likely indicate if the patient has produced antibodies to the SARS-CoV-2 virus. However, some patients may take longer to develop detectable antibodies, while some patients who were infected with SARS-CoV-2 may never develop antibodies. While antibodies to SARS-CoV-2 may provide some degree of immunity, at this time the strength and duration of the antibody response is unknown. ? ? Interpretation Result Comments:These interpretation comments are based upon all COVID-19 testing the patient has had at [facility], including molecular NAAT testing (more commonlyknown as PCR testing and Rapid ID Now testing) and antibody testing. It does not take into account any testing that a patient has had outside of the [facility] medical record. [facility] LABORATORY SERVICESCOVID AvjuldmFSMP-MkN-8 NAAT (no units) ? ? Date ? Value ? 12/07/2020 ? Not Detected ? ? ? 10/25/2020 ? Not Detected ? ? ? 07/12/2020 ? NotDetected ? ? ? 04/19/2020 ? Not Detected ? SARS-CoV-2 Rapid ID NOW (no units)? ? Date ? Value ? 03/30/2021 ? Not Detected ? ? ? 12/07/2020 ? Not Detected ? ? ? 07/09/2020 ? Not Detected ? [facility]ORATORY SERVICESUnCH[facility] URINE [id number] 12:12:09 Test Item Value Reference Range Interpretation Comments URINE CULTURE (test No aerobic growth (< code = 630-4) 1000 CFU/mL) [facility] CenterBasic Metabolic Panel (NA, K, CL, CO2, GLUCOSE, BUN, CREATININE, CA)2021-03-31 10:17:05 Test Item Value Reference Range Interpretation Comments NA (test code = 137 mmol/L 135-145 2893709430) K (test code = 4.7 mmol/L 3.5-5.0 7372060872) CL (test code = 111 mmol/L 98-108 H 6654448352) CO2 TOTAL (test code = 18 mmol/L 23-31 L 0485120941) AGAP (test code = 2-16 3739304234) BUN (test code = 22 mg/dL 7-23 5926558642) GLUCOSE (test code = 150 mg/dL 70-110 H 1042776115) CREATININE (test code = 1.38 mg/dL 0.60-1.25 H 8529472612) CALCIUM (test code = 9.0 mg/dL 8.6-10.6 9972934923) eGFR (test code = mL/min/1.73m2 7611093936) BRIGIDO (test code = BRIGIDO) Association of Glomerular Filtration Rate (GFR) and Staging of Kidney Disease* + --+ --+ ------+| GFR (mL/min/1.73 m2) ?| With Kidney Damage ?| ?Without Kidney Damage+ --------+ --------+ +| ?>90 ?| ?Stage one ?| ? Normal ?+ ---+ ---+ -------+| ?60-89 ?| ?Stage two ?| ? Decreased GFR ? + --+ --+ ------+| ?30-59 ?| ?Stage three ?| ? Stage three ? + --+ --+ ------+| ?15-29 ?| ?Stage four ? | ? Stage four ?+ ---+ ---+ -------+| ?<15 (or dialysis) ? ?| ?Stage five ? | ? Stage five ?+ ---+ ---+ -------+ *Each stage assumes the associated GFR level has been in effect for at least three months. ?Stages 1 to 5, with or without kidney disease, indicate chronic kidney disease. Notes: Determination of stages one and two (with eGFR >59mL/min/1.73 m2) requires estimation of kidney damage for at least three months as defined by structural or functional abnormalities of the kidney, manifested by either:Pathological abnormalities or Markers of kidney damage (including abnormalities in the composition of the blood or urine or abnormalities in imaging tests). Lab Interpretation Abnormal (test code = 40058-8) [facility] with [id number] 09:33:40 Test Item Value Reference Range Interpretation Comments WBC (test code = See_Comment H [Automated 8990-2) message] The system which generated this result transmit chava reference range : 4.20 - 10.70 10*3/?L. The reference range was not used to interpret this result as normal/abnormal . RBC (test code = See_Comment [Automated 789-8) message] The system which generated this result transmit chava reference range : 4.26 - 5.52 10*6/?L. The reference range was not used to interpret this result as normal/abnormal . HGB (test code = 12.9 g/dL 12.2-16.4 718-7) HCT (test code = 39.5 % 38.4-49.3 4544-3) MCV (test code = 90.8 fL 81.7-95.6 787-2) MCH (test code = 29.7 pg 26.1-32.7 785-6) MCHC (test code = 32.7 g/dL 31.2-35.0 786-4) RDW-SD (test code = 48.3 fL 38.5-51.6 24210-6) RDW-CV (test code = 14.4 % 12.1-15.4 788-0) PLT (test code = See_Comment [Automated 777-3) message] The system which generated this result transmit chava reference range : 150 - 328 10*3/ ?L. The reference range was not u sed to interpret th is result as normal/abnormal . MPV (test code = 10.2 fL 9.8-13.0 28585-3) NRBC/100 WBC (test See_Comment [Automat ed code = 7597131119) message] The system which generated this result transmit chava reference range : 0.0 - 10.0 /100 WBCs. The reference range was not used to interpret this result as normal/abnormal . NRBC x10^3 (test code <0.01 See_Comment [Auto mated = 5527384188) message] The system which generated this result transmit chava reference range : 10*3/?L. The reference range was not used to interpret this result as normal/abnormal . GRAN MAT (NEUT) % 88.0 % (test code = 770-8) IMM GRAN % (test code 1.20 % = 8559059133) LYMPH % (test code = 4.4 % 736-9) MONO % (test code = 6.1 % 5905-5) EOS % (test code = 0.1 % 713-8) BASO % (test code = 0.2 % 706-2) GRAN MAT x10^3(ANC) 14.54 10*3/uL 1.99-6.95 H (test code = 3076728754) IMM GRAN x10^3 (test 0.19 10*3/uL 0.00-0.06 H code = 7034107705) LYMPH x10^3 (test code 0.73 10*3/uL 1.09-3.23 L = 731-0) MONO x10^3 (test code 1.00 10*3/uL 0.36-1.02 = 742-7) EOS x10^3 (test code = <0.03 0.06-0.53 L 711-2) BASO x10^3 (test code 0.04 10*3/uL 0.01-0.09 = 704-7) Lab Interpretation Abnormal (test code = 96266-2) [facility] Center[facility] [place] [facility].2021-03-31 01:08:49 Test Item Value Reference Range Interpretation Comments PH (test code = 2) 7.35-7.45 PCO2 (test code = See_Comment L [Automat ed message] 1217524488) The system [employer] generated this result transmitted ref erence range: 35 - 45 mmHg. The reference r harvinder was not used to interpret this result as normal/abnor mal. PO2 (test code = See_Comment L [Automated message] 5222006525) The system [employer] generated this result transmitted ref erence range: 80 - 100 mmHg. The reference r harvinder was not used to interpret this result as normal/abnor mal. HCO3 (test code = See_Comment L [Automate d message] 3518249991) The system [employer] generated this result transmitted ref erence range: 22 - 26 mEq/L. The reference r harvinder was not used to interpret this result as normal/abnor mal. BE (test code = See_Comment L [Automated message] 5779185149) The system [employer] generated this result transmitted ref erence range: -3.0 - 3 .0 mEq/L. The refe rence range was not u sed to interpret this result as normal/abnor mal. Lab Interpretation (test Abnormal code = 32504-2) [facility] CenterXR [facility] 1 [id number] 00:44:46 Slight increase in left basilar airspace disease compared to radiographfrom earlier on the same daymay be from atelectasis or early milddeveloping pneumonia. RL: [id number]: [id number] END OF REPORT ORDERING PHYSICIAN: HARIS LOPES HISTORY: ?Shortness of breath. TECHNIQUE: ?Frontal view of the chest. COMPARISON: ?03/30/2021 and 2:05 AM FINDINGS: ? The cardiomediastinal contours are unremarkable. Vascular calcifications.Mild increase in left basilar airspace disease. No pleural effusion orpneumothorax. The osseous structures are unremarkable. [facility], Radiant Results Inft User - 03/30/2021 7:45 PM CDTFormatting of this note might be different fromthe original.ORDERING PHYSICIAN: HARIS NOLANHISTORY: Shortness of breath.TECHNIQUE: Frontal viewof the chest.COMPARISON: 03/30/2021 and 2:05 AMFINDINGS: The cardiomediastinal contours are unremarkable. Vascular calcifications.Mild increase in left basilar airspace disease. No pleural effusion orpneumothorax. The osseous structures are unremarkable. IMPRESSIONSlight increase in left basilar airspace disease compared to radiographfrom earlier on the same day may be from atelectasis or early mildde veloping pneumonia. RL: [id number]: [id number] OF REPORT UnCH[facility] MarshallCT ABDOMEN PELVIS WO [id number] 15:20:14 1. ?Left lower lobe dependent airspace opacities, likely related toaspiration or developing infection. 2. ?Extensive colonic diverticulosis with short segment of surrounding fatstranding suggesting div erticulitis. No drainable fluid collection or signsof perforation identified. 3. 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 The leftkidney shows no evidence of hydronephrosis or nephrolithiasis. Numerousleft renal hypoattenuating and hyperattenuating cystic structures.Prostatomegaly. PreliminaryReport Dictated by Resident: Avis Lynch ?MD Sandra., have reviewed this study and agree with theabove report.EXAM: CT ABDOMEN/PELVIS WITHOUT CONTRAST HISTORY: ? 85 years-old Male presenting with Flank pain, kidney stonesuspected LEFT FLANK PAIN COMPARISON: CT abdomen pelvis 12/08/2020 TECHNIQUE AND FINDINGS: Contiguous axial imaging from the level of the lungbases through the proximal thighs was performed without the intravenousadministration of contrast. Coronal and sagittal reconstructions wereobtained. ?Auto mA and/or iterative reconstruction were used to reduceradiation dose. FINDINGS: Limited exam due to lack of IV contrast material and streak artifact. LOWER THORAX: Left lower lobe dependent airspace opacities, likelyrepresent aspiration or developing infection. Hypoattenuating contentwithin the left ventricular related to the myocardium, could be seen withlow hematocrit status. LIVER: No focal hepatic lesions within the limits of this unenhanced CT.Normal liver contour. GALLBLADDER AND BILIARY TREE: Hydropic gallbladder with subtlepericholecystic fat stranding. No biliary ductal dilation. No radiopaquecholelithiasis. No gallbladder wall thickening. SPLEEN: No splenomegaly. Small calcified splenic granuloma. PANCREAS: No ductal dilation or masses within the limits of thisunenhancedCT. Fatty replacement of pancreatic parenchyma is noted. ADRENAL GLANDS: No adrenal nodules. 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 No left hydronephrosis orstones. Numerous left jessy al intraparenchymal and exophytic hypoattenuatingcystic structures measuring up to 4.6 cm some of which simple fluid densityand some demonstrated greater than simple fluid density. PERITONEUM AND RETROPERITONEUM: No free air or fluid. LYMPH NODES: No lymphadenopathy. GI TRACT: Extensive descending andsigmoid colonic diverticulosis withareas of subpleural fat stranding surrounding the proximal sigmoid/distaldescending colon (3:107). No bowel dilation or abnormal wall thickening.The appendix is not visualized. PELVIS/BLADDER: The urinary bladder appears unremarkable for the degree ofdistention. The prostate is enlarged measuring 5.2 cm in transversedimension at the level of the femoral heads with internal concretions. VESSELS: Unremarkable, within the limits of this unenhanced CT. BONES AND SOFT TISSUES: No suspicious lytic or sclerotic bony lesions.Eventration of the right lateral abdominal wallwith herniation of smalland large bowel loops. [facility], Radiant Results Inft User - 03/30/2021 10:21 AMCDT EXAM: CT ABDOMEN/PELVIS WITHOUT CONTRASTHISTORY: 85 years-old Male presenting with Flank pain, kidney stonesuspected LEFT FLANK PAINCOMPARISON: CT abdomen pelvis 12/08/2020TECHNIQUE AND FINDINGS: Contiguous axial imaging from the level of the lungbases through the proximal thighs was performed without the intravenousadministration of contrast. Coronal and sagittal reconstructions wereobtained. Auto mA and/or iterative reconstruction were used to reduceradiation dose.FINDINGS:Limited exam due to lack of IV contrast material and streakartifact.LOWER THORAX: Left lower lobe dependent airspace opacities, likelyrepresent aspiration or developing infection. Hypoattenuating contentwithin the left ventricular related to the myocardium, could be seen withlow hematocrit status.LIVER: No focal hepatic lesions within the limits of this unenhanced CT.Normal liver contour.GALLBLADDER AND BILIARY TREE: Hydropic gallbladder with subtlepericholecystic fat stranding. No biliary ductal dilation. No radiopaquecholelithiasis. No gallbladder wall thickening.SPLEEN: No splenomegaly. Small calcified splenic granuloma.PANCREAS: No ductal dilation or masses within the limits of this unenhancedCT. Fatty replacement of pancreatic parenchyma is noted.ADRENAL GLANDS: No adrenal nodules.KIDNEYS: Changes of right nephrectomy are noted. No left hydronephrosis orstones. Numerous left renal intraparenchymal and exophytic hypoattenuatingcystic structures measuring up to 4.6 cm some of which simple fluid densityand some demonstrated greater than simple fluid density.PERITONEUM AND RETROPERITONEUM: No free air or fluid.LYMPH NODES: No lymphadenopathy.GI TRACT: Extensive descending and sigmoid colonic diverticulosis withareas of subpleural fat stranding surrounding the proximal sigmoid/distaldescending colon (3:107). No bowel dilation or abnormal wall thickening.The appendix is not visualized.PELVIS/BLADDER: The urinary bladder appears unremarkable for the degree ofdistention. The prostate is enlarged measuring 5.2 cm in transversedimension at the level ofthe femoral heads with internal concretions.VESSELS: Unremarkable, within the limits of this unenhanced CT.BONES AND SOFT TISSUES: No suspicious lytic or sclerotic bony lesions.Eventration of the rightlateral abdominal wall with herniation of smalland large bowel loops.IMPRESSION1. Left lower lobe dependent airspace opacities, likely related toaspiration or developing infection.2. Extensive colonic diverticulosis with short segment of surrounding fatstranding suggesting diverticulitis. No drainable fluid collection or signsof perforation identified.3. Hydropic gallbladder with subtle pericholecystic fat stranding.Evaluation with gallbladder ultrasound is recommended4. 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 The leftkidney shows no evidence of hydronephrosis or nephrolithiasis. Numerousleft renal hypoattenuating and hyperattenuating cystic structures.Prostatomegaly.Preliminary Report Dictated by Resident: Avis Serrano MD., have reviewed this study and agree with theabove report.[facility] 2021-03-30 12:33:04 No acute intracranial abnormality. Preliminary Report Dictated by Resident: Cailin Lynch MD., have reviewed this study and agree with the abovereport.CT HEAD WITHOUT CONTRAST HISTORY: Mental status change, unknown cause COMPARISON: ?CT head without contrast 12/16/2020 TECHNIQUE: Axial CT of the head was performed and reconstructed at 5 mmintervals. Coronal and sagittal reformatted images were generated. FINDINGS: No intracranial abnormality such as hemorrhage, edema, mass, mass-effect,midline shift, or extra axial fluid collection is appreciated. The ventricles and sulci are prominent suggestive of mild degree of globalcerebral volume loss. No hydrocephalus. The sethi-white matter differentiation is preserved. The calvarium and skull base are intact. ?The visualized paranasal sinusesand mastoid air cells are clear. [facility], Radiant Results Inft User - 03/30/2021 7:[address] HEAD WITHOUT CONTRASTHISTORY: Mental status change, unknown cause COMPARISON: CT head without contrast 12/16/2020TECHNIQUE: Axial CT of the head was performed and reconstructed at 5 mmintervals. Coronal and sagittal reformatted images were generated.FINDINGS:No intracranial abnormality such as hemorrhage, edema, mass, mass-effect,midline shift, or extra axial fluid collection is appreciated.The ventricles and sulci are prominent suggestive of mild degree of globalcerebral volume loss. No hydrocephalus.The sethi-white matter differentiation is preserved.The calvarium and skull base are intact. The visualized paranasal sinusesand mastoid aircells are clear.IMPRESSIONNo acute intracranial abnormality.Preliminary Report Dictated by Resident:Cailin Serrano MD., have reviewed this study and agree with the abovereport.[facility] [id number] 08:01:01 Test Item Value Reference Range Interpretation Comments TROPONIN I (test 0.004 ng/mL See_Comment [Automated code = 1033224404) message] The system which generated this result transmitted reference range : <=0.034. The reference range was not used to interpret this result as normal/abnormal . BRIGIDO (test code = Equal or Less than BRIGIDO) 0.034 ng/ml---Normal ?Note: Cardiac troponin begins to rise 3-4 hours after the onset of ischemia. Repeat in 4-6 hours if the sample was drawn within 3-4 hours of the onset of the symptom and found normal. Between 0.035 and 0.120 ng/mL--- Borderline. Questionable myocardial injury or necrosis ? ?Note: Serial measurement may be necessary to confirm or exclude the diagnosis of myocardial injury or necrosis; Clinical correlation (symptoms, EKGs, imaging studies, and others) required; Repeat in 4-6 hours if clinically indicated. ? Equal or Higher than 0.121 ng/mL---Abnormal. Myocardial Injury or Necrosis Likely ? Biotin has been reported to cause a negative bias, interpret results relative to patient's use of biotin. ? Lab Interpretation Normal (test code = 47099-8) [facility]. METABOLIC PANEL (35082)2021-03-30 07:49:23 Test Item Value Reference Range Interpretation Comments NA (test code = 132 mmol/L 135-145 L 4448355562) K (test code = 4.2 mmol/L 3.5-5.0 9249004368) CL (test code = 105 mmol/L 98-108 8994787519) CO2 TOTAL (test code = 19 mmol/L 23-31 L 1294274014) AGAP (test code = 2-16 4174214154) BUN (test code = 37 mg/dL 7-23 H 2514870504) GLUCOSE (test code = 139 mg/dL 70-110 H 5817647470) CREATININE (test code = 2.32 mg/dL 0.60-1.25 H 1880780720) TOTAL BILI (test code = 0.7 mg/dL 0.1-1.3 6057974005) CALCIUM (test code = 9.1 mg/dL 8.6-10.6 6981315750) T PROTEIN (test code = 6.4 g/dL 6.3-8.2 4701950735) ALBUMIN (test code = 3.5 g/dL 3.5-5.0 8819920136) ALK PHOS (test code = 92 U/L 34-122 7692191938) ALTv (test code = 8 U/L 5-50 1742-6) AST(SGOT) (test code = 17 U/L 13-40 2564787095) eGFR (test code = mL/min/1.73m2 6658590505) BRIGIDO (test code = BRIGIDO) Association of Glomerular Filtration Rate (GFR) and Staging of Kidney Disease* + --+ --+ ------+| GFR (mL/min/1.73 m2) ?| With Kidney Damage ?| ?Without Kidney Damage+ --------+ --------+ +| ?>90 ?| ?Stage one ?| ? Normal ?+ ---+ ---+ -------+| ?60-89 ?| ?Stage two ?| ? Decreased GFR ? + --+ --+ ------+| ?30-59 ?| ?Stage three ?| ? Stage three ? + --+ --+ ------+| ?15-29 ?| ?Stage four ? | ? Stage four ?+ ---+ ---+ -------+| ?<15 (or dialysis) ? ?| ?Stage five ? | ? Stage five ?+ ---+ ---+ -------+ *Each stage assumes the associated GFR level has been in effect for at least three months. ?Stages 1 to 5, with or without kidney disease, indicate chronic kidney disease. Notes: Determination of stages one and two (with eGFR >59mL/min/1.73 m2) requires estimation of kidney damage for at least three months as defined by structural or functional abnormalities of the kidney, manifested by either:Pathological abnormalities or Markers of kidney damage (including abnormalities in the composition of the blood or urine or abnormalities in imaging tests). Lab Interpretation Abnormal (test code = 13867-7) [facility] CenterLIPASE2021-06-06 07:49:03 Test Item Value Reference Range Interpretation Comments LIPASE (test code = 9656440754) 43 U/L 0-220 Lab Interpretation (test code = Normal 85464-3) [facility] CenterCOVID-19 (ID NOW RAPID TESTING)2021-03-30 07:48:03 Test Item Value Reference Range Interpretation Comments SARS-CoV-2 Rapid ID NOW Not Detected Not Detected (test code = 29492-9) BRIGIDO (test code = BRIGIDO) ID NOW COVID-19 Assay is an isothermal nucleic acid amplification test intended for the qualitative detection of nucleic acid from SARS-CoV-2 viral RNA in nasopharyngeal (ENVIRONMENTAL SERVICES COORDINATOR) specimens. It is used under Emergency Use Authorization (EUA) by FDA. The limit of detection (LOD) of the assay is 125 Genome Equivalents/mL. A positive result is indicative of the presence of SARS-CoV-2 RNA. ?Clinical correlation with patient history and other diagnostic information is necessary to determine patient infection status. A negative (Not Detected) result does not preclude SARS-CoV-2 infection. In patients with clinical symptoms and other tests that are consistent with SARS-CoV-2 infection, negative results should be treated as presumptive negative and a new specimen should be tested with alternative PCR molecular test. Invalid: Please collect a new specimen for repeat patient testing if clinically indicated. Lab Interpretation Normal (test code = 56914-4) [facility] CenterURINALYSIS2021-06-06 07:27:45 Test Item Value Reference Range Interpretation Comments APPEARANCE (test code = Clear Clear 0393838652) COLOR (test code = Yellow Yellow 3656681980) PH (test code = 4.8-8.0 9117566154) SP GRAVITY (test code = 1.003-1.030 3168406962) GLU U QUAL (test code = Normal Normal 2638696484) BLOOD (test code = 3+ Negative A 6680573389) KETONES (test code = 5 mg/dL Negative A 9175653540) PROTEIN (test code = 30 mg/dL Negative A 2887-8) UROBILIN (test code = Normal Normal 6280574428) BILIRUBIN (test code = Negative Negative 6273795607) NITRITE (test code = Negative Negative 1563143213) LEUK CARLOS A (test code = Negative Negative 4041623663) RBC/HPF (test code = >182 See_Comment H [Autom ated message] 8170728655) The system [employer] generated this result transmitted ref erence range: 0 - 3 HP F. The reference range was not used to int erpret this result as normal/abnormal . WBC/HPF (test code = See_Comment [Autom ated message] 4122504384) The system [employer] generated this result transmitted ref erence range: 0 - 5 HP F. The reference range was not used to int erpret this result as normal/abnormal . BACTERIA (test code = Few Negative A 9635596779) HYAL CAST (test code = See_Comment [Aut omated message] 9063651283) The system [employer] generated this result transmitted ref erence range: <=2 LPF. The reference range was not used to int erpret this result as normal/abnormal . Lab Interpretation (test Abnormal code = 66424-5) [facility] CenterCB WITH [id number] 07:14:23 Test Item Value Reference Range Interpretation Comments WBC (test code = See_Comment H [Automated 6690-2) message] The system which generated this result transmit chava reference range : 4.20 - 10.70 10*3/?L. The reference range was not used to interpret this result as normal/abnormal . RBC (test code = See_Comment [Automated 789-8) message] The system which generated this result transmit chava reference range : 4.26 - 5.52 10*6/?L. The reference range was not used to interpret this result as normal/abnormal . HGB (test code = 12.8 g/dL 12.2-16.4 718-7) HCT (test code = 39.1 % 38.4-49.3 4544-3) MCV (test code = 91.4 fL 81.7-95.6 787-2) MCH (test code = 29.9 pg 26.1-32.7 785-6) MCHC (test code = 32.7 g/dL 31.2-35.0 786-4) RDW-SD (test code = 48.4 fL 38.5-51.6 95347-4) RDW-CV (test code = 14.3 % 12.1-15.4 788-0) PLT (test code = See_Comment [Automated 777-3) message] The system which generated this result transmit chava reference range : 150 - 328 10*3/ ?L. The reference range was not u sed to interpret th is result as normal/abnormal . MPV (test code = 10.1 fL 9.8-13.0 15586-3) NRBC/100 WBC (test See_Comment [Automat ed code = 9357732108) message] The system which generated this result transmit chava reference range : 0.0 - 10.0 /100 WBCs. The reference range was not used to interpret this result as normal/abnormal . NRBC x10^3 (test code <0.01 See_Comment [Auto mated = 7038931467) message] The system which generated this result transmit chava reference range : 10*3/?L. The reference range was not used to interpret this result as normal/abnormal . GRAN MAT (NEUT) % 85.7 % (test code = 770-8) IMM GRAN % (test code 1.40 % = 2082743012) LYMPH % (test code = 6.0 % 736-9) MONO % (test code = 5.8 % 5905-5) EOS % (test code = 0.9 % 713-8) BASO % (test code = 0.2 % 706-2) GRAN MAT x10^3(ANC) 14.10 10*3/uL 1.99-6.95 H (test code = 1303477835) IMM GRAN x10^3 (test 0.23 10*3/uL 0.00-0.06 H code = 6660467303) LYMPH x10^3 (test code 0.98 10*3/uL 1.09-3.23 L = 731-0) MONO x10^3 (test code 0.95 10*3/uL 0.36-1.02 = 742-7) EOS x10^3 (test code = 0.14 10*3/uL 0.06-0.53 711-2) BASO x10^3 (test code 0.03 10*3/uL 0.01-0.09 = 704-7) Lab Interpretation Abnormal (test code = 08543-4) [facility] CenterLactic Acid Whole [id number] 07:01:50 Test Item Value Reference Range Interpretation Comments LACTIC ACID (test code = 1.85 mmol/L 0.50-2.20 4767039522) Lab Interpretation (test code = Normal 62823-1) [facility] CenterPROSTATE,[id number] 10:44:00 Test Item Value Reference Range Interpretation Comments PROSTATE,TUR (test code = PROSTTUR) RUN DATE: 03/26/21 [place] - LAB PAGE 1 RUN TIME: 1044 Specimen Inquiry RUN USER: INTERFACE PATIENT: KRISTEN FERREIRA LOC: [place]5 U #: [id number] AGE/SX: 85/M ROOM: [facility] RE03/21/21REG DR: Ray Veronica MD : 35 BED: A DIS: 03/22/21 STATUS: DIS Jaqui TLOC: SPEC #: [id number]:[id number] RECD: 03/21/21 STATUS: GIUSEPPE RICE #: [id number] JUAN C: 03/21/21 [facility] DR: Ray Veronica MD ENTERED: 03/21/21 SP TYPE: PROSTTUR OTHR DR: No Primary or Family PhysicianORDERED: SURG PATH LVL 4 CODES: D80260 - PROSTATE, NOS [id number] M11845 - PROSTATE, NOS NODULAR HYPERPL Q33758 [id number] - PROSTATE, NOS EXCISION, NOS COPIES TO: No [place] [address] [facility] [address] [place] [address] PROCEDURES: SURG PATH LVL 4 (03/21/21) TISSUES: A. PROSTATE, NOS - PROSTATE CHIPS CPT CODES CPT CODE(S): 17003 , , , , , , FINAL DIAGNOSIS Prostate, transurethral resection: BENIGN NODULAR HYPERPLASIA GROSS DESCRIPTION Prostate chips. Received are several fragments of parra tissue measuring in aggregate 1.5 x 1.2 x 0.4 cm, entirely submitted as A1. /tc/louie MICROSCOPIC DESCRIPTION Prostate chips. Sections demonstrate a nodular proliferation of stromal tissue with rare compressed glands. Focal clusters of lymphocytes are seen throughout the stroma. There is no evidence of malignancy. /louie Signed SIGNATURE ON Antonia Ibrahim 03/26/21 1044 END OF REPORT PROTHROMBIN [id number] 10:45:00 Test Item Value Reference Range Interpretation Comments PROTHROMBIN TIME PATIENT 10.7 9.5-12.7 N (test code = PTP) INTERNATIONAL NORMAL RATIO 1.0 0.86-1.14 N T he INR is to be used (test code = INR) only for m onitoring oral anticoagulantth erapy. INDICATION INR VALUE ------- ------- -----1. Prophylaxis, d eep venous thrombos is, including high risk surgery. 2.0 - 3.0 2. Prophylaxis, de ep venous thrombos is, hip surgery, tr eatment for deep venous thrombosis or pulmonary preve ntion of systemic embolism in pat ients with valvula r heart disease, atrial fibrillation, tissue heart va lve, or acute myocardia l infarction. 2.0 - 3.0 3. Mechanical pros thesis heart valves, recurrent syste candi embolism. 3.0 - 4.5 PTT [id number] 10:45:00 Test Item Value Reference Range Interpretation Comments PTT ACTIVATED (test code = APTT) 38.1 SECONDS 25.1-36.5 H CBC W/AUTO [id number] 10:35:00 Test Item Value Reference Range Interpretation Comments WHITE BLOOD CELL (test code = 7.8 K/MM3 3.8-9.8 N WBC) RED BLOOD CELL (test code = 4.94 M/MM3 3.95-5.67 N RBC) HEMOGLOBIN (test code = HGB) 14.6 G/DL 12.4-16.7 N HEMATOCRIT (test code = HCT) 46.8 % 35.9-49.5 N MEAN CELL VOLUME (test code = 95 fL 81.7-96.1 N MCV) MEAN CELL HGB (test code = MCH) 29.6 pg 27.6-33.2 N MEAN CELL HGB CONCETRATION 31.2 % 32.9-35.5 L (test code = MCHC) RED CELL DISTRIBUTION WIDTH 14.4 % 12.1-15.2 N (test code = RDW) PLATELET COUNT (test code = 169 K/MM3 129-368 N PLT) MEAN PLATELET VOLUME (test code 10.2 fl 7.4-10.4 N = MPV) NEUTROPHIL % (test code = NT%) 63.2 % 43-75 N IMMATURE GRANULOCYTE % (test 0.5 % 0.0-2.0 N code = IG%) LYMPHOCYTE % (test code = LY%) 24.3 % 14-44 N MONOCYTE % (test code = MO%) 9.7 % 4-13 N EOSINOPHIL % (test code = EO%) 2.0 % 0-6 N BASOPHIL % (test code = BA%) 0.3 % 0-2 N NUCLEATED RBC % (test code = 0.0 % 0-1.0 N NRBC%) NEUTROPHIL # (test code = NT#) 4.94 K/mm3 2.0-7.6 N IMMATURE GRANULOCYTE # (test 0.04 x10 3/uL 0-0.03 H code = IG#) LYMPHOCYTE # (test code = LY#) 1.90 K/mm3 1.0-3.8 N MONOCYTE # (test code = MO#) 0.76 K/mm3 0.1-0.8 N EOSINOPHIL # (test code = EO#) 0.16 K/mm3 0.0-0.2 N BASOPHIL # (test code = BA#) 0.02 K/mm3 0.0-0.2 N NUCLEATED RBC # (test code = 0.00 K/mm3 0.0-0.1 N NRBC#) COVID 19 Asymptomatic IH [id number] 09:50:00 Test Item Value Reference Range Interpretation Comments COVID 19 NEGATIVE Negative "Negative resul ts from Asymptomatic IH AG patients with symptom (test code = onset beyondfiv e days, COVNONPUIAG) should be paloma chava as presumptive, andconfirmation with a molecular assay , if necessary forpa tient management may be performed. Nega tive results do notr ule out COVID-19 and sh ould not be used as the sole basisfor treatm ent or patient managem ent decisions, includinginfect ion control decisio ns. Negative result s should beconsidered in the context of a pa tients recent exposure s,history, and the presenc e of clinical signs and symptomsconsist ent with COVID-19.This t est detects both vi able andnon-viable S ARS-CoV and SARS CoV-2. Test performance dep endson the amount of virus (antigen) in the sample." - XR CHEST 2 [id number] 09:35:00 [facility] : 1935 Sex: M Patient Name: KRISTEN FERREIRA Unit No: [id number] EXAMS: CPT CODE: [id number] XR CHEST 2 V 21475 EXAMINATION: Frontal and lateral chest radiographs INDICATI ON: Cough COMPARISON: None LOCATION: S17 FINDINGS: Minimal left basilar atelectasis with otherwise clear lungs. No pleural effusion or pneumothorax. Enlarged cardiac silhouette. IMPRESSION: Minimal left basilar atelectasis. at 0935 Reported and signed by: Bowen Salinas MD CC: Brad Gan MD Technologist: Yuli Spencer RT(R) Transcrpt Date/Tm/Trnsp: 03/21/2021 (0935) [id number] Orig Print D/T: S: 03/21/2021 (0901) [facility] NAME: KRISTEN FERREIRA [address] [address] PHYS: [place] [address] : 1935 AGE: 85 SEX: M : Z.SRG PHONE #: [phone] EXAM DATE: 03/21/2021 STATUS: REG SDC FAX #: [phone] RADIOLOGY NO: PAGE 1 Signed ReportCOMPREHENSIVE METABOLIC [id number] 08:42:00 Test Item Value Reference Range Interpretation Comments SODIUM (test code 139 MMOL/L 137-145 N = NA) POTASSIUM (test 3.3 MMOL/L 3.5-5.1 L code = K) CHLORIDE (test 110 MMOL/L 98-107 H code = CL) CARBON DIOXIDE 21 MMOL/L 22-30 L (test code = CO2) ANION GAP (test 11 MMOL/L 14-24 L code = GAP) GLUCOSE (test 134 MG/DL 74-106 H code = GLU) BLOOD UREA 26 MG/DL 9-20 H NITROGEN (test code = BUN) GLOMERULAR 52 Reporting units : FILTRATION RATE ml/min/1.73 m2 (Modified (test code = GFR) MDRD Formu la)Reference Range: > or = 6 0 ml/min/1.73 m2 CREATININE (test 1.30 MG/DL 0.66-1.25 H code = CREAT) TOTAL PROTEIN 6.5 G/DL 6.2-7.6 N Ortho Clinical Diagnostic (test code = has made us rasta re of PROT) newinformation regarding the potential i nterference ofEltrombopag (a bone marrow stimulan t used to treatthrombocyt onmenia and aplastic anemia ) with specific assays on the Ecals 5600 of which Total Protein is one of thoseassays per formed in our lab.Interfe rence testing perform ed at [facility] determined that Eltrombopag does interfere with Vitros Total Protein asfollowsEltrom bopag Interference fo r Vitros Product Total Protein:======= Eltrombopag Max Observed A vg. BiasConcentrati on Concentration Concentration== ==== 2.5 mg/dl 6.0 g/dl +0.41 +0.34 3.5 mg/dl 6.0 g/dl +0.50 +0.45 5 mg/dl 6.0 g/dl +0.73 +0.65 2.5 mg/dl 8.0 g/dl +0.44 +0.41 3.5 mg/dl 8.0 g/dl +0.55 +0.52 5 mg/dl 8.0 g/dl +0.86 +0.77 ALBUMIN (test 3.7 G/DL 3.5-5.0 N code = ALB) CALCIUM (test 8.8 MG/DL 8.4-10.2 N code = CA) BILIRUBIN TOTAL 0.4 MG/DL 0.2-1.3 N Eltrombopag Interference (test code = for Vitros Prod uct TBil, BILT) BuBc: Assa y Eltrombopag Analyte/ Max Observed Avg. Bias Concentrati on Concentration Concentration== ====TBil 7mg/dl T Travis/ 1.2mg/dl +0.23 mg.dl +0.20mg/dlBuBc 3.5mg/dl Bu/0.8mg/dl +0.25mg/dl +0 .24mg/dlBuBc 7 mg/dl Bu/14.2mg/dl +0.38mg/dl +0.25mg/dlBuBc 5mg/dl Bc/0mg/dl +0.25mg/dl +0 .15mg/dlBuBc 3.5mg/dl Bc/2.8mg/dl +0.25mg/dl +0.23mg/dl SGOT/AST (test 22 UNITS/L 17-59 N code = AST) SGPT/ALT (test 13 UNITS/L <50 code = ALT) ALKALINE 83 UNITS/L 38-126 N PHOSPHATASE (test code = ALKP) POC VENOUS BLOOD [id number] 08:12:00 Test Item Value Reference Range Interpretation Comments POC VENOUS BLOOD GAS PH (test 7.325 7.35-7.45 L code = POCPHV) POC VENOUS BLOOD GAS PCO2 45.8 mmHg 35.0-45.0 H (test code = [id number]) POC VENOUS BLOOD GAS PO2 25.1 mmHG 0-40 N (test code = [id number]) POC HCO3 VENOUS (test code = 23.9 MMOL/L 20-26 N [id number]) POC BASE EXCESS VENOUS (test -2.4 MMOL/L -3.0-3.0 N code = POCBEV) POC O2 SATURATION VENOUS 40.6 % 72-77 L (test code = [id number]) POC SAMPLE SOURCE (test code Venous Descript Specimen = POCSAMPLE) LACTIC ACID POC (test code = 1.25 mmol/L 0.7-2.0 N LACTP) XR CHEST 2 [id number] 21:25:03HISTORY: Upper respiratory tract infection. TECHNIQUE: 2 PA and one lateral views of the chest are obtained. Comparisonis made with portable study of 12/13/2020. FINDINGS: No acute pneumonia detected. No pneumothorax or pleural effusionor pulmonary congestion. Cardiothoracic ratio of approximately 16/33.5 cmis consistent with normal cardiac size. Small calcified granuloma in the right lower lung, minimal generalizedobstructive lung disease and mild degenerative ankylosing spondylosis ofthoracic spines noted. CONCLUSIONS: No signs of acute cardiopulmonary disease.[facility], Radiant Results Inft User - 03/12/2021 4:26 PM CDTHISTORY: Upper respiratory tract infection.TECHNIQUE: 2 PA and one lateral views of the chest are obtained. Comparisonis made with portable study of 12/13/2020.FINDINGS: No acute pneumonia detected. No pneumothorax or pleural effusionor pulmonary congestion. Cardiothoracic ratio of approximately 16/33.5 cmis consistent with normal cardiac size.Small calcified granuloma in the right lower lung, minimal generalizedobstructive lung disease and mild degenerative ankylosing spondylosis ofthoracic spines noted.CONCLUSIONS: No signs of acute cardiopulmonary disease. [facility] 19 Asymptomatic IH [id number] 14:32:00 Test Item Value Reference Range Interpretation Comments COVID 19 NEGATIVE Negative "Negative resul ts from Asymptomatic IH AG patients with symptom (test code = onset beyondfiv e days, COVNONPUIAG) should be paloma chava as presumptive, andconfirmation with a molecular assay , if necessary forpa tient management may be performed. Nega tive results do notr ule out COVID-19 and sh ould not be used as the sole basisfor treatm ent or patient managem ent decisions, includinginfect ion control decisio ns. Negative result s should beconsidered in the context of a pa tients recent exposure s,history, and the presenc e of clinical signs and symptomsconsist ent with COVID-19.This t est detects both vi able andnon-viable S ARS-CoV and SARS CoV-2. Test performance dep endson the amount of virus (antigen) in the sample." BASIC METABOLIC [id number] 14:06:00 Test Item Value Reference Range Interpretation Comments SODIUM (test code = 137 MMOL/L 137-145 N NA) POTASSIUM (test code = 5.1 MMOL/L 3.5-5.1 N K) CHLORIDE (test code = 106 MMOL/L 98-107 N CL) CARBON DIOXIDE (test 20 MMOL/L 22-30 L code = CO2) GLUCOSE (test code = 131 MG/DL 74-106 H GLU) BLOOD UREA NITROGEN 21 MG/DL 9-20 H (test code = BUN) GLOMERULAR FILTRATION 36 Report ing units: RATE (test code = GFR) ml/mi n/1.73 m2 (Modified MDRD Formula)Referen ce Range: > or = 6 0 ml/min/1.73 m2 CREATININE (test code 1.80 MG/DL 0.66-1.25 H = CREAT) CALCIUM (test code = 9.8 MG/DL 8.4-10.2 N CA) CBC W/AUTO [id number] 13:40:00 Test Item Value Reference Range Interpretation Comments WHITE BLOOD CELL (test code = 9.3 K/MM3 3.8-9.8 N WBC) RED BLOOD CELL (test code = 4.76 M/MM3 3.95-5.67 N RBC) HEMOGLOBIN (test code = HGB) 14.3 G/DL 12.4-16.7 N HEMATOCRIT (test code = HCT) 49.5 % 35.9-49.5 N MEAN CELL VOLUME (test code = 104 fL 81.7-96.1 H MCV) MEAN CELL HGB (test code = MCH) 30.0 pg 27.6-33.2 N MEAN CELL HGB CONCETRATION 28.9 % 32.9-35.5 L (test code = MCHC) RED CELL DISTRIBUTION WIDTH 15.2 % 12.1-15.2 N (test code = RDW) PLATELET COUNT (test code = 279 K/MM3 129-368 N PLT) MEAN PLATELET VOLUME (test code 9.0 fl 7.4-10.4 N = MPV) NEUTROPHIL % (test code = NT%) 69.5 % 43-75 N IMMATURE GRANULOCYTE % (test 0.5 % 0.0-2.0 N code = IG%) LYMPHOCYTE % (test code = LY%) 18.2 % 14-44 N MONOCYTE % (test code = MO%) 9.5 % 4-13 N EOSINOPHIL % (test code = EO%) 1.8 % 0-6 N BASOPHIL % (test code = BA%) 0.5 % 0-2 N NUCLEATED RBC % (test code = 0.0 % 0-1.0 N NRBC%) NEUTROPHIL # (test code = NT#) 6.46 K/mm3 2.0-7.6 N IMMATURE GRANULOCYTE # (test 0.05 x10 3/uL 0-0.03 H code = IG#) LYMPHOCYTE # (test code = LY#) 1.69 K/mm3 1.0-3.8 N MONOCYTE # (test code = MO#) 0.88 K/mm3 0.1-0.8 H EOSINOPHIL # (test code = EO#) 0.17 K/mm3 0.0-0.2 N BASOPHIL # (test code = BA#) 0.05 K/mm3 0.0-0.2 N NUCLEATED RBC # (test code = 0.00 K/mm3 0.0-0.1 N NRBC#) DIFFERENTIAL [id number] 13:40:00 Test Item Value Reference Range Interpretation Comments RBC MORPHOLOGY REQUIRED (test code = RBCM) PLATELET ESTIMATE (test code = PLTEST) ADEQUATE PLATELET MORPHOLOGY (test code = NORMAL PLTMORPH) CBC W/AUTO [id number] 13:40:00 Test Item Value Reference Range Interpretation Comments WHITE BLOOD CELL (test code = 9.3 K/MM3 3.8-9.8 N WBC) RED BLOOD CELL (test code = 4.76 M/MM3 3.95-5.67 N RBC) HEMOGLOBIN (test code = HGB) 14.3 G/DL 12.4-16.7 N HEMATOCRIT (test code = HCT) 49.5 % 35.9-49.5 N MEAN CELL VOLUME (test code = 104 fL 81.7-96.1 H MCV) MEAN CELL HGB (test code = MCH) 30.0 pg 27.6-33.2 N MEAN CELL HGB CONCETRATION 28.9 % 32.9-35.5 L (test code = MCHC) RED CELL DISTRIBUTION WIDTH 15.2 % 12.1-15.2 N (test code = RDW) PLATELET COUNT (test code = 279 K/MM3 129-368 N PLT) MEAN PLATELET VOLUME (test code 9.0 fl 7.4-10.4 N = MPV) NEUTROPHIL % (test code = NT%) 69.5 % 43-75 N IMMATURE GRANULOCYTE % (test 0.5 % 0.0-2.0 N code = IG%) LYMPHOCYTE % (test code = LY%) 18.2 % 14-44 N MONOCYTE % (test code = MO%) 9.5 % 4-13 N EOSINOPHIL % (test code = EO%) 1.8 % 0-6 N BASOPHIL % (test code = BA%) 0.5 % 0-2 N NUCLEATED RBC % (test code = 0.0 % 0-1.0 N NRBC%) NEUTROPHIL # (test code = NT#) 6.46 K/mm3 2.0-7.6 N IMMATURE GRANULOCYTE # (test 0.05 x10 3/uL 0-0.03 H code = IG#) LYMPHOCYTE # (test code = LY#) 1.69 K/mm3 1.0-3.8 N MONOCYTE # (test code = MO#) 0.88 K/mm3 0.1-0.8 H EOSINOPHIL # (test code = EO#) 0.17 K/mm3 0.0-0.2 N BASOPHIL # (test code = BA#) 0.05 K/mm3 0.0-0.2 N NUCLEATED RBC # (test code = 0.00 K/mm3 0.0-0.1 N NRBC#) DIFFERENTIAL [id number] 13:40:00 Test Item Value Reference Range Interpretation Comments RBC MORPHOLOGY REQUIRED (test code = RBCM) PLATELET ESTIMATE (test code = PLTEST) ADEQUATE PLATELET MORPHOLOGY (test code = NORMAL PLTMORPH) POCT URINALYSIS W SPECIFIC [id number] 18:27:00 Test Item Value Reference Range Interpretation Comments POCT U SP GRAV (test 1.005 mg/dl 1.005-1.025 code = 3255) POCT PH U (test code = 5 mg/dl 5-8 3254) POCT U LEUK EST (test 2+ Negative - code = 3263) Negative POCT U NIT (test code positive Negative - = 3262) Negative POCT U PROT (test code Negative - = 3259) Negative POCT U GLU (test code negative Negative - = 3256) Negative POCT U KETONE (test negative Negative - code = 3258) Negative POCT U UROBILI (test normal 0.2-1 code = 3260) POCT U BILI (test code negative Negative - = 3261) Negative POCT U BLD (test code trace Negative - = 3257) Negative POCT U COLOR (test yellow code = 3266) POCT U APPEAR (test cloudy code = 3267) BRIGIDO (test code = BRIGIDO) accurate development and interpretation of all internal controls Lab Interpretation Abnormal (test code = 02000-4) [facility] ABD PELVIS W/O [id number] 00:10:00 [facility] : 1935 Sex: M Name: KRISTEN FERREIRA [facility] : 1935 Age/S: 85 / M [id number] Unit #: [id number] Loc: [place] [address] Phys: Undefined Provider Acct: [id number] Dis Date: Status: REG REF PHONE #: [phone] Exam Date: 12/26/2020 0016 FAX #: Reason: LEUKOCYTOSIS EXAMS: CPT: [id number] CT ABD PELVIS W/O CONT 73483 EXAM: - CT ABD PELVIS W/O CONT LOCATION: H61 CLINICAL HISTORY/INDICATION: LEUKOCYTOSIS COMPARISON: None TECHNIQUE: Axial CT images of the abdomen and pelvis were obtained from the diaphragm to the lesser trochanter without IV contrast ad ministration. Coronal and sagittal reformations were reconstructed from the axial data set. This examination was performed according to our departmental dose optimization program, which includes automated exposure control, adjustment of the mA and/or kV according to patient size, and/or use of iterative reconstruction technique. FINDINGS: LIMITATIONS: Absence of IV contrast decreases sensitivity for detection of focal lesions and vascular pathology. LOWER THORAX: Scarring/dependent atelectasis in the bilateral posterior lower lobes. Calcified granuloma in the posterior right lower lobe. Mild coronary arterial calcification. LIVER: 9 mm round hypodense lesion in the left hepatic lobe and 12 mmhypodense lesion in the right hepatic lobe cannot be further characterized on this noncontraststudy. If further evaluation is desired, consider ultrasound or contrast-enhanced CT evaluation. GALLBLADDER/BILIARY SYSTEM: Normal CT appearance of the gallbladder. No common duct dilatation. PANCREAS: Unremarkable. SPLEEN: Calcified granuloma noted in the spleen. ADRENALS: No adrenal nodules. KIDNEYS/URETERS: Postsurgical changes of right nephrectomy. 5.1 cm cyst in the inferior pole left kidney. 1.8 similar cyst in the midpole the left kidney. A few centimeter cortical hypodensities in thesuperior pole of left kidney are too small to characterize. No perinephric fluid collection or hydronephrosis. Mild nonspecific left-sided perinephric stranding. PAGE 1 Signed Report (CONTINUED) Name: KRISTEN FERREIRA [facility] [place] : 1935 Age/S: 85 / M [id number] Unit #: [id number] Loc: [place] [address] Phys: Undefined Provider Acct: [id number] Dis Date: Status: REG REF PHONE #: [phone] Exam Date: 12/26/2020 2635 FAX #: Reason: LEUKOCYTOSIS EXAMS: CPT: [id number] CT ABD PELVIS W/O CONT 28614 <Continued> VESSELS: Aneurysmal dilatation of the infrarenal abdominal aorta 3 cm. Mild aortic atherosclerosis. LYMPH NODES: No lymphadenopathy. PERITONEUM / RETROPERITONEUM: No free air or fluid.GI TRACT: Small bowel and colon are not dilated. No bowel wall thickening. Numerous diverticula within the sigmoid colon without evidence of acute diverticulitis. The appendix is not well-visualized. However, there are no secondary signs of appendicitis demonstrated in the right lower quadrant. Moderate colonic stool. GENITOURINARY ORGANS: Prostate is mildly enlarged and contains coarse calcifications. PELVIC FREE FLUID/FLUID COLLECTION: None. URINARY BLADDER: Unremarkable. EXTERNAL SOFT TISSUE: Small 2 cm intra muscular lipoma in the right lateral hip. Small abdominal wall hernia in the right lower quadrant with herniation of a short segment of the colon through the hernia defect. Postoperative changes in the right costovertebral angle with resection of a few posterior ribs with mild herniation of the liver and a few bowel loops throughout the abdominal wall surgical defect. BONES: No acute fractures. Moderate lumbar spine spondylosis. Resection of a few posterior ribs near the right costovertebral angle IMPRESSION: 1. Mild nonspecific left perinephric fat stranding which could be age related changes versus pyelonephritis. Correlation with UA and focal CVA tenderness is recommended. 2. Otherwise, no acute abnormalities demonstrated and pelvis. 3. 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 CT follow-up every 3 years is recommended to assess for size stability. 4. 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 5. Small right lower quadrant abdominal wall hernia with short segment herniation of the colon through the defect. PAGE 2 Signed Report (CONTINUED) Name: KRISTEN FERREIRA [place] : 1935 Age/S: 85 / M [address] Unit #: [id number] Loc: [place] [address] Phys: Undefined Provider Acct: [id number] Dis Date: Status: REG REF PHONE #: [phone] Exam Date: 12/26/2020 8476 FAX #: Reason: LEUKOCYTOSIS EXAMS: CPT: [id number] CT ABD PELVIS W/O CONT 18713 <Continued> 6. Severe sigmoid colon diverticulosis. at 0010 Reported and signed by: Ny Delgado M.D. CC: Technologist:RT Bisi(R)(CT) CTDI: DLP: Trnscb Date/Time: 12/27/2020 (0010) [email or web address] Orig Print D/T: S: 12/27/2020 (0014) PAGE 3 Signed Report CBC W/AUTO [id number] 12:07:00 Test Item Value Reference Range Interpretation Comments WHITE BLOOD CELL 17.1 K/mm3 3.5-11.0 H (test code = WBC) RED BLOOD CELL (test 3.59 M/mm3 4.70-6.10 L code = RBC) HEMOGLOBIN (test code 11.2 G/DL 12.3-15.9 L = HGB) HEMATOCRIT (test code 33.8 % 35.8-46.7 L = HCT) MEAN CELL VOLUME 94.2 Fl 86.3-98.9 N (test code = MCV) MEAN CELL HGB (test 31.2 pg 28.9-34.4 N code = MCH) MEAN CELL HGB 33.1 G/DL 32.1-34.5 N CONCETRATION (test code = MCHC) RED CELL DISTRIBUTION 12.7 SD 11.5-14.5 N WIDTH (test code = RDW) PLATELET COUNT (test 358 K/mm3 150-450 N code = PLT) MEAN PLATELET VOLUME 10.10 fL 7.0-9.6 H (test code = MPV) NEUTROPHIL % (test 81.6 % 40-76 H code = NT%) IMMATURE GRANULOCYTE 0.8 % 0.0-5.0 N % (test code = IG%) LYMPHOCYTE % (test 6.4 % 20.5-51.1 L code = LY%) MONOCYTE % (test code 9.2 % 1.7-9.3 N = MO%) EOSINOPHIL % (test 1.6 % 0.0-6.0 N code = EO%) BASOPHIL % (test code 0.4 % 0.0-2.0 N = BA%) NUCLEATED RBC % (test 0.0 /100WBC% 0.0-1.0 N code = NRBC%) NEUTROPHIL # (test 14.0 K/mm3 1.8-7.6 H code = NT#) IMMATURE GRANULOCYTE 0.14 x10 3/uL 0.00-0.03 H # (test code = IG#) LYMPHOCYTE # (test 1.1 K/mm3 0.6-3.0 N code = LY#) MONOCYTE # (test code 1.6 K/mm3 0.2-1.5 H = MO#) EOSINOPHIL # (test 0.3 K/mm3 0.0-0.4 N code = EO#) BASOPHIL # (test code 0.1 K/mm3 0.0-0.2 N = BA#) NUCLEATED RBC # (test 0.0 K/mm3 0.00-0.01 N code = NRBC#) MANUAL DIFF REQUIRED NO DIFF/SCN CRITERIA SLIDE R DEVENW (test code = MDIFF) CONSISTA NT WITH AUTO DIFFERENTI AL. CBC W/AUTO [id number] 11:55:00 Test Item Value Reference Range Interpretation Comments WHITE BLOOD CELL (test code = 17.1 K/mm3 3.5-11.0 H WBC) RED BLOOD CELL (test code = 3.59 M/mm3 4.70-6.10 L RBC) HEMOGLOBIN (test code = HGB) 11.2 G/DL 12.3-15.9 L HEMATOCRIT (test code = HCT) 33.8 % 35.8-46.7 L MEAN CELL VOLUME (test code = 94.2 Fl 86.3-98.9 N MCV) MEAN CELL HGB (test code = MCH) 31.2 pg 28.9-34.4 N MEAN CELL HGB CONCETRATION 33.1 G/DL 32.1-34.5 N (test code = MCHC) RED CELL DISTRIBUTION WIDTH 12.7 SD 11.5-14.5 N (test code = RDW) PLATELET COUNT (test code = 358 K/mm3 150-450 N PLT) MEAN PLATELET VOLUME (test code 10.10 fL 7.0-9.6 H = MPV) NEUTROPHIL % (test code = NT%) 81.6 % 40-76 H IMMATURE GRANULOCYTE % (test 0.8 % 0.0-5.0 N code = IG%) LYMPHOCYTE % (test code = LY%) 6.4 % 20.5-51.1 L MONOCYTE % (test code = MO%) 9.2 % 1.7-9.3 N EOSINOPHIL % (test code = EO%) 1.6 % 0.0-6.0 N BASOPHIL % (test code = BA%) 0.4 % 0.0-2.0 N NUCLEATED RBC % (test code = 0.0 /100WBC% 0.0-1.0 N NRBC%) NEUTROPHIL # (test code = NT#) 14.0 K/mm3 1.8-7.6 H IMMATURE GRANULOCYTE # (test 0.14 x10 3/uL 0.00-0.03 H code = IG#) LYMPHOCYTE # (test code = LY#) 1.1 K/mm3 0.6-3.0 N MONOCYTE # (test code = MO#) 1.6 K/mm3 0.2-1.5 H EOSINOPHIL # (test code = EO#) 0.3 K/mm3 0.0-0.4 N BASOPHIL # (test code = BA#) 0.1 K/mm3 0.0-0.2 N NUCLEATED RBC # (test code = 0.0 K/mm3 0.00-0.01 N NRBC#) MANUAL DIFF REQUIRED (test code DIFF/SCN CRITERIA = MDIFF) BASIC METABOLIC [id number] 11:36:00 Test Item Value Reference Range Interpretation Comments SODIUM (test code = NA) 143 mmol/L 134-147 N POTASSIUM (test code = K) 5.0 mmol/L 3.4-5.0 N CHLORIDE (test code = CL) 110 mmol/L 100-108 H CARBON DIOXIDE (test code = 17 mmol/L 21-32 L CO2) ANION GAP (test code = GAP) 16.0 GAP calc 4.0-15.0 H GLUCOSE (test code = GLU) 139 MG/DL 70-110 H BLOOD UREA NITROGEN (test code 61 MG/DL 7-18 H = BUN) GLOMERULAR FILTRATION RATE 26 estGFR >60 L (test code = GFR) CREATININE (test code = CREAT) 2.5 MG/DL 0.8-1.3 H CALCIUM (test code = CA) 8.5 MG/DL 8.5-10.1 N XR ELBOW <3 VW [id number] 17:12:15 1. ?No fracture. RL: 1105 HISTORY: ?elbow pain s/p fall ? right COMPARISON: ?None FINDINGS: 2 views right elbow. There is slight cortical irregularity to the lateral radial head which isfavored to be osteophyte formation rather than a nondisplaced fracture.There is no joint effusion. Distal humerus and proximal ulna are intact. [facility], Radiant Results Inft User - 12/16/2020 11:13 AM CSTHISTORY: elbow pain s/p fall rightCOMPARISON: NoneFINDINGS:2 views right elbow.There is slight cortical irregularity to the lateral radial head which isfavored to be osteophyte formation rather than a nondisplaced fracture.There is no joint effusion.Distal humerus and proximal ulna are intact.IMPRESSION1. No fracture.RL: 1105 UnCH[facility] MarshallCT Head W/O [id number] 17:01:34 No acute intracranial abnormality. No acute fracture or traumatic malalignment of the cervical spine. Preliminary Report Dictated by Resident: Joan Flemingva, MD., have reviewed this study and agree with theabove report.Exam: CT HEAD WITHOUT CONTRAST Exam: CT CERVICAL SPINE WITHOUT CONTRAST HISTORY: fall, on blood thinners COMPARISON: CT head without contrast, 03/05/2019. CTA head and neck,03/14/2019. TECHNIQUE: Routine CTs of the head and cervical spine were performedwithout intravenous contrast, and coronal and sagittal reformatted imageswere generated. FINDINGS: CT HEAD: No calvarial fracture. The ventricles and cerebral sulci are normal in caliber and configuration.No hydrocephalus, midline shift or pathological extra-axial fluidcollection is present. The basal cisterns are unremarkable. There is no acute intracranial hemorrhage or significant mass effect. Noparenchymal attenuation abnormality. The sethi-white matter differentiationis preserved. The mastoid air cells and visualized paranasal air sinuses are clear.Bilateral pseudophakia is seen. CT CERVICAL SPINE:The vertebral bodies are normal in height and alignment. No facet fractureor subluxation is present.The craniocervical junction is intact. Mild spondylotic changes of the cervical spine are noted with minimalanterior marginal osteophytes as well as uncovertebral arthrosis, thelatter most conspicuousat C6-C7 and C7-T1. Multilevel facet arthrosis withpartial osseous fusion of the right C2-C3 facets. The prevertebral soft tissues are unremarkable. [facility], Radiant Results Inft User - 12/16/2020 11:02 AM CSTExam: CT HEAD WITHOUT CONTRASTExam: CT CERVICAL SPINE WITHOUT CONTRASTHISTORY: fall, on blood thinners COMPARISON: CT head without contrast, 03/05/2019. CTA head and neck,03/14/2019.TECHNIQUE: Routine CTs of the head and cervical spine were performedwithout intravenous contrast, and coronal and sagittal reformatted imageswere generated. FINDINGS: CT HEAD:No calvarial fracture.The ventricles and cerebral sulci are normal in caliber and configuration.No hydrocephalus, midline shift or pathological extra-axial fluidcollection is present. The basal cisterns are unremarkable.There is no acute intracranial hemorrhage or significant mass effect. Noparenchymal attenuation abnormality. The sethi-white matter differentiationis preserved.The mastoid air cells and visualized paranasal air sinuses are clear.Bilateral pseudophakia is seen.CT CERVICAL SPINE:The vertebral bodies are normal in height and alignment. No facet fractureor subluxation is present. The craniocervical junction is intact. Mild spondylotic changes of the cervical spine are noted with minimalanterior marginal osteophytes as well as uncovertebral arthrosis, thelatter most conspicuous at C6-C7 and C7-T1. Multilevel facet arthrosis withpartial osseous fusion of the right C2-C3 facets.The prevertebral soft tissues are unremarkable.IMPRESSIONNo acute intracranial abnormality.No acute fracture or traumatic malalignment of the cervical spine.Preliminary Report Dictated by Resident: Joan Alvarez MD., have reviewed this study and agree with theabove report.[facility] C[facility] W/O [id number] 17:01:34 No acute intracranial abnormality. No acute fracture or traumatic malalignment of the cervical spine. Preliminary Report Dictated by Resident: Joan Fleming MD., have reviewed this study and agree with theabove report.Exam: CT HEAD WITHOUT CONTRAST Exam: CT CERVICAL SPINE WITHOUT CONTRAST HISTORY: fall, on blood thinners COMPARISON: CT head without contrast, 03/05/2019. CTA head and neck,03/14/2019. TECHNIQUE: Routine CTs of the head and cervical spine were performedwithout intravenous contrast, and coronal and sagittal reformatted imageswere generated. FINDINGS: CT HEAD: No calvarial fracture. The ventricles and cerebral sulci are normal in caliber and configuration.No hydrocephalus, midline shift or pathological extra-axial fluidcollection is present. The basal cisterns are unremarkable. There is no acute intracranial hemorrhage or significant mass effect. Noparenchymal attenuation abnormality. The sethi-white matter differentiationis preserved. The mastoid air cells and visualized paranasal air sinuses are clear.Bilateral pseudophakia is seen. CT CERVICAL SPINE:The vertebral bodies are normal in height and alignment. No facet fractureor subluxation is present.The craniocervical junction is intact. Mild spondylotic changes of the cervical spine are noted with minimalanterior marginal osteophytes as well as uncovertebral arthrosis, thelatter most conspicuousat C6-C7 and C7-T1. Multilevel facet arthrosis withpartial osseous fusion of the right C2-C3 facets.The prevertebral soft tissues are unremarkable. [facility], Radiant Results Inft User - 12/16/2020 11:02 AM CSTExam: CT HEAD WITHOUT CONTRASTExam: CT CERVICAL SPINE WITHOUT CONTRASTHISTORY: fall, on blood thinners COMPARISON: CT head without contrast, 03/05/2019. CTA head and neck,03/14/2019.TECHNIQUE: Routine CTs of the head and cervical spine were performedwithout intravenous contrast, and coronal and sagittal reformatted imageswere generated. FINDINGS: CT HEAD:No calvarial fracture.The ventricles and cerebral sulci are normal in caliber and configuration.No hydrocephalus, midline shift or pathological extra-axial fluidcollection is present. The basal cisterns are unremarkable.There is no acute intracranial hemorrhage or significant mass effect. Noparenchymal attenuation abnormality. The sethi-white matter differentiationis preserved.The mastoid air cells and visualized paranasal air sinuses are clear.Bilateral pseudophakia is seen.CT CERVICAL SPINE:The vertebral bodies are normal in height and alignment. No facet fractureor subluxation is present. The craniocervical junction is intact. Mild spondylotic changes of the cervical spine are noted with minimalanterior marginal osteophytes as well as uncovertebral arthrosis, thelatter most conspicuous at C6-C7 and C7-T1. Multilevel facet arthrosis withpartial osseous fusion of the right C2-C3 facets.The prevertebral soft tissues are unremarkable.IMPRESSIONNo acute intracranial abnormality.No acute fracture or traumatic malalignment of the cervical spine.Preliminary Report Dictated by Resident: Joan Alvarez MD., have reviewed this study and agree with theabove report. [facility] GLUCOSE (AUTOMATED)2020-12-14 17:36:00 Test Item Value Reference Range Interpretation Comments POCT GLU (test code = 7475774752) 139 mg/dL 70-110 H Lab Interpretation (test code = Abnormal 23189-5) [facility] GLUCOSE (AUTOMATED)2020-12-14 17:36:00 Test Item Value Reference Range Interpretation Comments POCT GLU (test code = 6925374168) 117 mg/dL 70-110 H Lab Interpretation (test code = Abnormal 64815-9) [facility] [id number] 02:57:44 Overall nonobstructive bowel gas pattern. RL: 135 END OF REPORT ORDERING PHYSICIAN: MARGARITA CASE CLINICAL INFORMATION: ? abd pain COMPARISON: None Technique: ? Single view of the abdomen Findings: Overall bowel gas pattern is nonobstructive. Air-filled stomach is noted.Surgical clips are seen in the left paramedian location in the upperabdomen. No distinct abnormal calcifications are seen. Osseous structuresshow no evidence of acuteabnormalities in [facility], Radiant Results Inft User - 12/13/2020 8:58 PM CSTORDERING PHYSICIAN: MARGARITA CASTORENAINICAL INFORMATION: abd pain COMPARISON: NoneTechnique: Single view of the abdomenFindings:Overall bowel gas pattern is nonobstructive. Air-filled stomach is noted.Surgical clips are seenin the left paramedian location in the upperabdomen. No distinct abnormal calcifications are seen. Osseous structuresshow no evidence of acute abnormalities inIMPRESSIONOverall nonobstructive bowel gaspattern.RL: 135END OF REPORT [facility] [id number] 23:31:01 1. New Right PICC project over the upper to mid SVC.2. Persistent subtle central predominant aspiration changes or ongoingbronchopneumonia-like changes in the right lung greater than left. EXAM: XR CHEST 1 VW COMPARISON: 12/10/2020 HISTORY: picc placement FINDINGS: The new right PICC tip overlies the upper to mid SVC Lungs: The lungs are well-expanded. Accounting for differences intechnique, similar appearance of peribronchial cuffing and hazy opacitiesin the central lungs, right greater than left. No new focal opacities. Nopneumothorax or pleural effusions. Heart/Mediastinum: The cardiomediastinal silhouette is borderline in sizeaccounting for technique. Atherosclerotic calcifications of the aorta withmild unfolding of the descending portion. Bones: Thoracic spondylosis. The soft tissues appear normal [facility], Radiant Results Inft User - 12/13/2020 5:32 PM CSTEXAM: XR CHEST 1 VWCOMPARISON: 12/10/2020HISTORY: picc placement FINDINGS:The new right PICC tip overlies the upper to mid SVCLungs: The lungs are well-expanded. Accounting for differences intechnique, similar appearance of peribronchial cuffing and hazy opacitiesin the central lungs, right greater than left. No new focal opacities. Nopneumothorax or pleural effusions.Heart/Mediastinum: The cardiomediastinal silhouette is borderline in sizeaccounting for technique. Atherosclerotic calcifications of the aorta withmild unfolding of the descending portion.Bones: Thoracic spondylosis. The soft tissues appear normalIMPRESSION1. New Right PICC project over the upper to mid SVC.2. Persistent subtle central predominant aspiration changes or ongoingbronchopneumonia-like changes in the right lung greater than left.[facility] GLUCOSE (AUTOMATED) 2020-12-13 23:19:00 Test Item Value Reference Range Interpretation Comments POCT GLU (test code = 5715858915) 165 mg/dL 70-110 H Lab Interpretation (test code = Abnormal 60932-9) [facility] GLUCOSE (AUTOMATED)2020-12-13 22:46:00 Test Item Value Reference Range Interpretation Comments POCT GLU (test code = 1940163339) 150 mg/dL 70-110 H Lab Interpretation (test code = Abnormal 44988-0) [facility] METABOLIC PANEL (NA, K, CL, CO2, GLUCOSE, BUN, CREATININE, CA)2020-12-13 21:05:00 Test Item Value Reference Range Interpretation Comments NA (test code = 134 mmol/L 135-145 L 3591352367) K (test code = 3.8 mmol/L 3.5-5 9643004160) CL (test code = 102 mmol/L 98-108 7180356900) CO2 TOTAL (test code = 27 mmol/L 23-31 7477117337) AGAP (test code = 2-16 5766207128) BUN (test code = 27 mg/dL 7-23 H 4964413792) GLUCOSE (test code = 130 mg/dL 70-110 H 7595454838) CREATININE (test code = 1.14 mg/dL 0.6-1.25 5532733101) CALCIUM (test code = 8.3 mg/dL 8.6-10.6 L 2847633319) eGFR Calculation mL/min/1.73m2 (Non-) (test code = 6004357442) eGFR Calculation mL/min/1.73m2 () (test code = 8059184120) BRIGIDO (test code = BRIGIDO) Association of Glomerular Filtration Rate (GFR) and Staging of Kidney Disease* + --+ --+ ------+| GFR (mL/min/1.73 m2) ?| With Kidney Damage ?| ?Without Kidney Damage+ --------+ --------+ +| ?>90 ?| ?Stage one ?| ? Normal ?+ ---+ ---+ -------+| ?60-89 ?| ?Stage two ?| ? Decreased GFR ? + --+ --+ ------+| ?30-59 ?| ?Stage three ?| ? Stage three ? + --+ --+ ------+| ?15-29 ?| ?Stage four ? | ? Stage four ?+ ---+ ---+ -------+| ?<15 (or dialysis) ? ?| ?Stage five ? | ? Stage five ?+ ---+ ---+ -------+ *Each stage assumes the associated GFR level has been in effect for at least three months. ?Stages 1 to 5, with or without kidney disease, indicate chronic kidney disease. Notes: Determination of stages one and two (with eGFR >59mL/min/1.73 m2) requires estimation of kidney damage for at least three months as defined by structural or functional abnormalities of the kidney, manifested by either:Pathological abnormalities or Markers of kidney damage (including abnormalities in the composition of the blood or urine or abnormalities in imaging tests). Lab Interpretation Abnormal (test code = 85451-5) [facility] WITH [id number] 20:03:00 Test Item Value Reference Range Interpretation Comments WBC (test code = See_Comment H [Automated 9290-2) message] The system which generated this result transmit chava reference range : 4.20 - 10.70 10*3/?L. The reference range was not used to interpret this result as normal/abnormal . RBC (test code = See_Comment [Automated 849-8) message] The system which generated this result transmit chava reference range : 4.26 - 5.52 10*6/?L. The reference range was not used to interpret this result as normal/abnormal . HGB (test code = 14.8 g/dL 12.2-16.4 718-7) HCT (test code = 43.7 % 38.4-49.3 4544-3) MCV (test code = 90.7 fL 81.7-95.6 787-2) MCH (test code = 30.7 pg 26.1-32.7 785-6) MCHC (test code = 33.9 g/dL 31.2-35 786-4) RDW-SD (test code = 40.5 fL 38.5-51.6 71802-6) RDW-CV (test code = 12.2 % 12.1-15.4 788-0) PLT (test code = See_Comment [Automated 777-3) message] The system which generated this result transmit chava reference range : 150 - 328 10*3/ ?L. The reference range was not u sed to interpret th is result as normal/abnormal . MPV (test code = 9.8 fL 9.8-13 17844-7) NRBC/100 WBC (test See_Comment [Automat ed code = 5074761383) message] The system which generated this result transmit chava reference range : 0.0 - 10.0 /100 WBCs. The reference range was not used to interpret this result as normal/abnormal . NRBC x10^3 (test code <0.01 See_Comment [Auto mated = 1175703522) message] The system which generated this result transmit chava reference range : 10*3/?L. The reference range was not used to interpret this result as normal/abnormal . GRAN MAT (NEUT) % 76.6 % (test code = 770-8) IMM GRAN % (test code 1.40 % = 0479062960) LYMPH % (test code = 9.8 % 736-9) MONO % (test code = 9.8 % 5905-5) EOS % (test code = 2.0 % 713-8) BASO % (test code = 0.4 % 706-2) GRAN MAT x10^3(ANC) 10.11 10*3/uL 1.99-6.95 H (test code = 5691904652) IMM GRAN x10^3 (test 0.19 10*3/uL 0-0.06 H code = 6742282084) LYMPH x10^3 (test code 1.30 10*3/uL 1.09-3.23 = 731-0) MONO x10^3 (test code 1.30 10*3/uL 0.36-1.02 H = 742-7) EOS x10^3 (test code = 0.26 10*3/uL 0.06-0.53 711-2) BASO x10^3 (test code 0.05 10*3/uL 0.01-0.09 = 704-7) Lab Interpretation Abnormal (test code = 99187-1) [facility] GLUCOSE (AUTOMATED)2020-12-13 14:05:00 Test Item Value Reference Range Interpretation Comments POCT GLU (test code = 3600186554) 134 mg/dL 70-110 H Lab Interpretation (test code = Abnormal 74871-3) [facility] GLUCOSE (AUTOMATED)2020-12-13 04:15:00 Test Item Value Reference Range Interpretation Comments POCT GLU (test code = 9205762528) 159 mg/dL 70-110 H Lab Interpretation (test code = Abnormal 43762-4) [facility] [id number] 01:01:00 Test Item Value Reference Range Interpretation Comments Blood Culture-Aerobic No organisms No growth Previo us (test code = 54862-4) isolated prelim inary verified result was Culture In Progress on 12/07/2020 at 21 01 CSTPrevious preliminary verified result was No growth a t 24 hours on 12/08/2020 at 18 01 CSTPrevious preliminary verified result was No growth a t 48 hours on 12/09/2020 at 18 01 CSTPrevious preliminary verified result was No growth a t 72 hours on 12/10/2020 at 18 02 MOLD COOLER Blood No organisms No growth Previous Culture-Anaerobic isolated preliminar y (test code = 29715-7) verifi ed result was Culture In Progress on 12/07/2020 at 21 01 CSTPrevious preliminary verified result was No growth a t 24 hours on 12/08/2020 at 18 01 CSTPrevious preliminary verified result was No growth a t 48 hours on 12/09/2020 at 18 01 CSTPrevious preliminary verified result was No growth a t 72 hours on 12/10/2020 at 18 02 MOLD COOLER Lab Interpretation Normal (test code = 40841-1) [facility] GLUCOSE (AUTOMATED)2020-12-12 18:04:00 Test Item Value Reference Range Interpretation Comments POCT GLU (test code = 3380273570) 132 mg/dL 70-110 H Lab Interpretation (test code = Abnormal 04750-4) [facility] GLUCOSE (AUTOMATED)2020-12-12 14:46:00 Test Item Value Reference Range Interpretation Comments POCT GLU (test code = 1797487344) 134 mg/dL 70-110 H Lab Interpretation (test code = Abnormal 63791-8) [facility] [id number] 11:21:00 Test Item Value Reference Range Interpretation Comments NT-proBNP (test code 2010 pg/mL See_Comment H [Autom ated = 5512577735) message] The system which generated this result transmitted reference range : <=450. The reference range was not used to interpret this result as normal/abnormal . BRIGIDO (test code = BRIGIDO) Biotin has been reported to cause a negative bias, interpret results relative to patient's use of biotin. Lab Interpretation Abnormal (test code = 06492-1) [facility] (NA, K, CL, CO2, GLUCOSE, BUN, CREATININE, CA)2020-12-12 11:19:00 Test Item Value Reference Range Interpretation Comments NA (test code = 136 mmol/L 135-145 9117932546) K (test code = 3.6 mmol/L 3.5-5 7004719207) CL (test code = 100 mmol/L 98-108 1949619059) CO2 TOTAL (test code = 29 mmol/L 23-31 8581365863) AGAP (test code = 2-16 6223370959) BUN (test code = 31 mg/dL 7-23 H 7885545110) GLUCOSE (test code = 148 mg/dL 70-110 H 0414999401) CREATININE (test code = 1.33 mg/dL 0.6-1.25 H 7844640780) CALCIUM (test code = 9.0 mg/dL 8.6-10.6 5884906284) eGFR Calculation mL/min/1.73m2 (Non-) (test code = 5187545472) eGFR Calculation mL/min/1.73m2 () (test code = 4213264690) BRIGIDO (test code = BRIGIDO) Association of Glomerular Filtration Rate (GFR) and Staging of Kidney Disease* + --+ --+ ------+| GFR (mL/min/1.73 m2) ?| With Kidney Damage ?| ?Without Kidney Damage+ --------+ --------+ +| ?>90 ?| ?Stage one ?| ? Normal ?+ ---+ ---+ -------+| ?60-89 ?| ?Stage two ?| ? Decreased GFR ? + --+ --+ ------+| ?30-59 ?| ?Stage three ?| ? Stage three ? + --+ --+ ------+| ?15-29 ?| ?Stage four ? | ? Stage four ?+ ---+ ---+ -------+| ?<15 (or dialysis) ? ?| ?Stage five ? | ? Stage five ?+ ---+ ---+ -------+ *Each stage assumes the associated GFR level has been in effect for at least three months. ?Stages 1 to 5, with or without kidney disease, indicate chronic kidney disease. Notes: Determination of stages one and two (with eGFR >59mL/min/1.73 m2) requires estimation of kidney damage for at least three months as defined by structural or functional abnormalities of the kidney, manifested by either:Pathological abnormalities or Markers of kidney damage (including abnormalities in the composition of the blood or urine or abnormalities in imaging tests). Lab Interpretation Abnormal (test code = 85731-7) [facility] WITH [id number] 10:26:00 Test Item Value Reference Range Interpretation Comments WBC (test code = See_Comment H [Automated 3529-2) message] The sy stem which generated this result transmitted reference range : 4.20 - 10.70 10*3/?L. The reference range was not used to interpret this result as normal/abnormal . RBC (test code = See_Comment [Automated 129-8) message] The sy stem which generated this result transmitted reference range : 4.26 - 5.52 10*6/?L. The reference range was not used to interpret this result as normal/abnormal . HGB (test code = 15.1 g/dL 12.2-16.4 718-7) HCT (test code = 44.4 % 38.4-49.3 4544-3) MCV (test code = 90.2 fL 81.7-95.6 787-2) MCH (test code = 30.7 pg 26.1-32.7 785-6) MCHC (test code = 34.0 g/dL 31.2-35 786-4) RDW-SD (test code = 40.5 fL 38.5-51.6 69625-8) RDW-CV (test code = 12.3 % 12.1-15.4 788-0) PLT (test code = See_Comment [Automated 777-3) message] The sy stem which generated this result transmitted reference range : 150 - 328 10*3/ ?L. The reference r harvinder was not used to interpret this result as normal/abnormal . MPV (test code = 10.2 fL 9.8-13 59233-4) NRBC/100 WBC (test See_Comment [Automat ed code = 6595816848) message] The system which generated this result transmitted reference range : 0.0 - 10.0 /100 WBCs. The refer ence range was not u sed to interpret th is result as normal/abnormal . NRBC x10^3 (test code <0.01 See_Comment [Auto mated = 6822280380) message] The s ystem which generated this result transmitted reference range : 10*3/?L. The reference range was not used to interpret this result as normal/abnormal . GRAN MAT (NEUT) % 74.9 % (test code = 770-8) IMM GRAN % (test code 1.20 % = 2923199673) LYMPH % (test code = 11.3 % 736-9) MONO % (test code = 10.1 % 5905-5) EOS % (test code = 2.2 % 713-8) BASO % (test code = 0.3 % 706-2) GRAN MAT x10^3(ANC) 8.69 10*3/uL 1.99-6.95 H (test code = 1737024687) IMM GRAN x10^3 (test 0.14 10*3/uL 0-0.06 H code = 3381458364) LYMPH x10^3 (test code 1.32 10*3/uL 1.09-3.23 = 731-0) MONO x10^3 (test code 1.18 10*3/uL 0.36-1.02 H = 742-7) EOS x10^3 (test code = 0.26 10*3/uL 0.06-0.53 711-2) BASO x10^3 (test code 0.04 10*3/uL 0.01-0.09 = 704-7) Lab Interpretation Abnormal (test code = 95635-5) [facility] GLUCOSE (AUTOMATED)2020-12-12 10:20:00 Test Item Value Reference Range Interpretation Comments POCT GLU (test code = 3727784683) 142 mg/dL 70-110 H Lab Interpretation (test code = Abnormal 96202-8) [facility] GLUCOSE (AUTOMATED)2020-12-11 18:13:00 Test Item Value Reference Range Interpretation Comments POCT GLU (test code = 2410434942) 152 mg/dL 70-110 H Lab Interpretation (test code = Abnormal 44190-5) [facility] [id number] 17:31:00 Test Item Value Reference Range Interpretation Comments URINE CULTURE (test <10,000 CFU/mL code = 630-4) Gram-Negative Bacilli [facility] GLUCOSE (AUTOMATED)2020-12-11 14:12:00 Test Item Value Reference Range Interpretation Comments POCT GLU (test code = 8156747071) 142 mg/dL 70-110 H Lab Interpretation (test code = Abnormal 68446-1) [facility]MINAL [id number] 11:28:00 Test Item Value Reference Range Interpretation Comments NT-proBNP (test code 4980 pg/mL See_Comment H [Autom ated = 8706938043) message] The system which generated this result transmitted reference range : <=450. The reference range was not used to interpret this result as normal/abnormal . BRIGIDO (test code = BRIGIDO) Biotin has been reported to cause a negative bias, interpret results relative to patient's use of biotin. Lab Interpretation Abnormal (test code = 28632-3) [facility] METABOLIC PANEL (NA, K, CL, CO2, GLUCOSE, BUN, CREATININE, CA)2020-12-11 11:20:00 Test Item Value Reference Range Interpretation Comments NA (test code = 136 mmol/L 135-145 8235435908) K (test code = 3.5 mmol/L 3.5-5 1385011680) CL (test code = 98 mmol/L 98-108 1156161435) CO2 TOTAL (test code = 29 mmol/L 23-31 8152465376) AGAP (test code = 2-16 7208659777) BUN (test code = 26 mg/dL 7-23 H 0962447234) GLUCOSE (test code = 155 mg/dL 70-110 H 7358882770) CREATININE (test code = 1.24 mg/dL 0.6-1.25 7517438608) CALCIUM (test code = 9.5 mg/dL 8.6-10.6 1552071425) eGFR Calculation mL/min/1.73m2 (Non-) (test code = 3346747891) eGFR Calculation mL/min/1.73m2 () (test code = 4684936336) BRIGIDO (test code = BRIGIDO) Association of Glomerular Filtration Rate (GFR) and Staging of Kidney Disease* + --+ --+ ------+| GFR (mL/min/1.73 m2) ?| With Kidney Damage ?| ?Without Kidney Damage+ --------+ --------+ +| ?>90 ?| ?Stage one ?| ? Normal ?+ ---+ ---+ -------+| ?60-89 ?| ?Stage two ?| ? Decreased GFR ? + --+ --+ ------+| ?30-59 ?| ?Stage three ?| ? Stage three ? + --+ --+ ------+| ?15-29 ?| ?Stage four ? | ? Stage four ?+ ---+ ---+ -------+| ?<15 (or dialysis) ? ?| ?Stage five ? | ? Stage five ?+ ---+ ---+ -------+ *Each stage assumes the associated GFR level has been in effect for at least three months. ?Stages 1 to 5, with or without kidney disease, indicate chronic kidney disease. Notes: Determination of stages one and two (with eGFR >59mL/min/1.73 m2) requires estimation of kidney damage for at least three months as defined by structural or functional abnormalities of the kidney, manifested by either:Pathological abnormalities or Markers of kidney damage (including abnormalities in the composition of the blood or urine or abnormalities in imaging tests). Lab Interpretation Abnormal (test code = 72743-3) [facility] WITH [id number] 10:29:00 Test Item Value Reference Range Interpretation Comments WBC (test code = See_Comment H [Automated 1590-2) message] The sy stem which generated this result transmitted reference range : 4.20 - 10.70 10*3/?L. The reference range was not used to interpret this result as normal/abnormal . RBC (test code = See_Comment [Automated 789-8) message] The sy stem which generated this result transmitted reference range : 4.26 - 5.52 10*6/?L. The reference range was not used to interpret this result as normal/abnormal . HGB (test code = 15.8 g/dL 12.2-16.4 718-7) HCT (test code = 46.1 % 38.4-49.3 4544-3) MCV (test code = 91.3 fL 81.7-95.6 787-2) MCH (test code = 31.3 pg 26.1-32.7 785-6) MCHC (test code = 34.3 g/dL 31.2-35 786-4) RDW-SD (test code = 41.0 fL 38.5-51.6 91593-9) RDW-CV (test code = 12.3 % 12.1-15.4 788-0) PLT (test code = See_Comment [Automated 777-3) message] The sy stem which generated this result transmitted reference range : 150 - 328 10*3/ ?L. The reference r harvinder was not used to interpret this result as normal/abnormal . MPV (test code = 10.4 fL 9.8-13 47641-6) NRBC/100 WBC (test See_Comment [Automat ed code = 3934453242) message] The system which generated this result transmitted reference range : 0.0 - 10.0 /100 WBCs. The refer ence range was not u sed to interpret th is result as normal/abnormal . NRBC x10^3 (test code <0.01 See_Comment [Auto mated = 4773608454) message] The s ystem which generated this result transmitted reference range : 10*3/?L. The reference range was not used to interpret this result as normal/abnormal . GRAN MAT (NEUT) % 78.3 % (test code = 770-8) IMM GRAN % (test code 1.10 % = 6249203900) LYMPH % (test code = 9.7 % 736-9) MONO % (test code = 8.9 % 5905-5) EOS % (test code = 1.7 % 713-8) BASO % (test code = 0.3 % 706-2) GRAN MAT x10^3(ANC) 9.00 10*3/uL 1.99-6.95 H (test code = 2714260389) IMM GRAN x10^3 (test 0.13 10*3/uL 0-0.06 H code = 0666459206) LYMPH x10^3 (test code 1.11 10*3/uL 1.09-3.23 = 731-0) MONO x10^3 (test code 1.02 10*3/uL 0.36-1.02 = 742-7) EOS x10^3 (test code = 0.19 10*3/uL 0.06-0.53 711-2) BASO x10^3 (test code 0.03 10*3/uL 0.01-0.09 = 704-7) Lab Interpretation Abnormal (test code = 75177-7) [facility] 20:22:00 Test Item Value Reference Range Interpretation Comments APPEARANCE (test code = Clear Clear 8458531987) COLOR (test code = Yellow Yellow 7784736067) PH (test code = 4.8-8.0 2762025266) SP GRAVITY (test code = 1.003-1.030 8952182003) GLU U QUAL (test code = Normal Normal 2400749918) BLOOD (test code = Negative Negative 3032631044) KETONES (test code = Negative Negative 3657999143) PROTEIN (test code = 100 mg/dL Negative A 2887-8) UROBILIN (test code = Normal Normal 5658376306) BILIRUBIN (test code = Negative Negative 7287287807) NITRITE (test code = Negative Negative 8673372063) LEUK CARLOS A (test code = Negative Negative 8229750420) RBC/HPF (test code = See_Comment [Autom ated message] 2832120845) The system [employer] generated this result transmit chava reference range : 0 - 3 HPF. The refe rence range was not u sed to interpret th is result as normal/abnormal . WBC/HPF (test code = See_Comment [Autom ated message] 2852568895) The system [employer] generated this result transmit chava reference range : 0 - 5 HPF. The refe rence range was not u sed to interpret th is result as normal/abnormal . BACTERIA (test code = Negative Negative 7827913128) Lab Interpretation (test Abnormal code = 36840-5) [facility] 1 [id number] 14:47:13 1. ?Mildly increased interstitial infiltrates. RL: 1105 Electronically signed by Eduardo Peng MD 12/10/2020 8:47 AMHISTORY: ?chf ? shortness of breath COMPARISON: ?December 07, 2020 FINDINGS: AP chest shows mild interstitial infiltrates in a predominantly perihilardistribution slightly increased. No pleural effusion. equipment monitor phototypesetting leadsoverlie the chest. [facility], Radiant Results Inft User - 12/10/2020 8:48 AM CSTHISTORY: chf shortness of breathCOMPARISON: December 07, 2020FINDINGS:AP chest shows mild interstitial infiltrates in a predominantly perihilardistribution slightly increased. No pleural effusion. equipment monitor phototypesetting leadsoverlie the chest.IMPRESSION1. Mildly increased interstitial infi ltrates.RL: 1105 [facility] [id number] 14:13:00 Test Item Value Reference Range Interpretation Comments NT-proBNP (test code 8710 pg/mL See_Comment H [Autom ated = 8597347826) message] The system which generated this result transmitted reference range : <=450. The reference range was not used to interpret this result as normal/abnormal . BRIGIDO (test code = BRIGIDO) Biotin has been reported to cause a negative bias, interpret results relative to patient's use of biotin. Lab Interpretation Abnormal (test code = 85593-0) [facility] METABOLIC PANEL (NA, K, CL, CO2, GLUCOSE, BUN, CREATININE, CA)2020-12-10 14:06:00 Test Item Value Reference Range Interpretation Comments NA (test code = 136 mmol/L 135-145 6817386906) K (test code = 3.2 mmol/L 3.5-5 L 9538223474) CL (test code = 98 mmol/L 98-108 0115933559) CO2 TOTAL (test code = 28 mmol/L 23-31 7726748107) AGAP (test code = 2-16 8784111023) BUN (test code = 18 mg/dL 7-23 2182765538) GLUCOSE (test code = 175 mg/dL 70-110 H 4491442227) CREATININE (test code = 1.14 mg/dL 0.6-1.25 0256345332) CALCIUM (test code = 9.4 mg/dL 8.6-10.6 5079569301) eGFR Calculation mL/min/1.73m2 (Non-) (test code = 4830918055) eGFR Calculation mL/min/1.73m2 () (test code = 8074635850) BRIGIDO (test code = BRIGIDO) Association of Glomerular Filtration Rate (GFR) and Staging of Kidney Disease* + --+ --+ ------+| GFR (mL/min/1.73 m2) ?| With Kidney Damage ?| ?Without Kidney Damage+ --------+ --------+ +| ?>90 ?| ?Stage one ?| ? Normal ?+ ---+ ---+ -------+| ?60-89 ?| ?Stage two ?| ? Decreased GFR ? + --+ --+ ------+| ?30-59 ?| ?Stage three ?| ? Stage three ? + --+ --+ ------+| ?15-29 ?| ?Stage four ? | ? Stage four ?+ ---+ ---+ -------+| ?<15 (or dialysis) ? ?| ?Stage five ? | ? Stage five ?+ ---+ ---+ -------+ *Each stage assumes the associated GFR level has been in effect for at least three months. ?Stages 1 to 5, with or without kidney disease, indicate chronic kidney disease. Notes: Determination of stages one and two (with eGFR >59mL/min/1.73 m2) requires estimation of kidney damage for at least three months as defined by structural or functional abnormalities of the kidney, manifested by either:Pathological abnormalities or Markers of kidney damage (including abnormalities in the composition of the blood or urine or abnormalities in imaging tests). Lab Interpretation Abnormal (test code = 90230-2) [facility]AT[facility] FUN[facility] PAN[facility] (47837) (ALB,T.PRO,BILI T,BU/BC,ALT,AST,ALK PHOS)2020-12-10 14:06:00 Test Item Value Reference Range Interpretation Comments TOTAL BILI (test code = 3534180927) 0.8 mg/dL 0.1-1.1 BILI UNCON (test code = 8086401946) 0.5 mg/dL 0.1-1.1 BILI CONJ (test code = 4970889806) 0.0 mg/dL 0-0.3 T PROTEIN (test code = 3299430826) 7.1 g/dL 6.3-8.2 ALBUMIN (test code = 3272455338) 4.2 g/dL 3.5-5 ALK PHOS (test code = 0673075724) 115 U/L 34-122 ALTv (test code = 1742-6) 14 U/L 5-50 AST(SGOT) (test code = 5302632317) 36 U/L 13-40 Lab Interpretation (test code = Normal 23123-8) [facility] CenterMAGNESIUM2021-02-16 14:06:00 Test Item Value Reference Range Interpretation Comments MAGNESIUM (test code = 7533162400) 2.0 mg/dL 1.7-2.4 Lab Interpretation (test code = Normal 78676-7) [facility] CenterCBC WITH [id number] 13:31:00 Test Item Value Reference Range Interpretation Comments WBC (test code = See_Comment H [Automated 6390-2) message] The system which generated this result transmit chava reference range : 4.20 - 10.70 10*3/?L. The reference range was not used to interpret this result as normal/abnormal . RBC (test code = See_Comment [Automated 789-8) message] The system which generated this result transmit chava reference range : 4.26 - 5.52 10*6/?L. The reference range was not used to interpret this result as normal/abnormal . HGB (test code = 15.7 g/dL 12.2-16.4 718-7) HCT (test code = 46.3 % 38.4-49.3 4544-3) MCV (test code = 93.0 fL 81.7-95.6 787-2) MCH (test code = 31.5 pg 26.1-32.7 785-6) MCHC (test code = 33.9 g/dL 31.2-35 786-4) RDW-SD (test code = 41.2 fL 38.5-51.6 10769-6) RDW-CV (test code = 12.0 % 12.1-15.4 L 788-0) PLT (test code = See_Comment [Automated 777-3) message] The system which generated this result transmit chava reference range : 150 - 328 10*3/ ?L. The reference range was not u sed to interpret th is result as normal/abnormal . MPV (test code = 10.6 fL 9.8-13 70869-9) NRBC/100 WBC (test See_Comment [Automat ed code = 9980776280) message] The system which generated this result transmit chava reference range : 0.0 - 10.0 /100 WBCs. The reference range was not used to interpret this result as normal/abnormal . NRBC x10^3 (test code <0.01 See_Comment [Auto mated = 8942024356) message] The system which generated this result transmit chava reference range : 10*3/?L. The reference range was not used to interpret this result as normal/abnormal . GRAN MAT (NEUT) % 88.0 % (test code = 770-8) IMM GRAN % (test code 0.50 % = 9817068447) LYMPH % (test code = 5.9 % 736-9) MONO % (test code = 5.2 % 5905-5) EOS % (test code = 0.2 % 713-8) BASO % (test code = 0.2 % 706-2) GRAN MAT x10^3(ANC) 14.64 10*3/uL 1.99-6.95 H (test code = 5692735724) IMM GRAN x10^3 (test 0.08 10*3/uL 0-0.06 H code = 4118701296) LYMPH x10^3 (test code 0.99 10*3/uL 1.09-3.23 L = 731-0) MONO x10^3 (test code 0.87 10*3/uL 0.36-1.02 = 742-7) EOS x10^3 (test code = 0.03 10*3/uL 0.06-0.53 L 711-2) BASO x10^3 (test code 0.03 10*3/uL 0.01-0.09 = 704-7) Lab Interpretation Abnormal (test code = 84691-4) [facility] Center[facility] ONLY COVID [id number] 02:15:00COVID DMT InterpretationInterpretation/Recommendations:Molecular NAAT Tests for Active Infection with the SARS-CoV-2 Virus:The patient has currently tested negative for the SARS-CoV-2 virus that causesCOVID-19 illness. This most likely indicates that the patient does not have an active infection withthe SARS-CoV-2 virus. However, infection is not completely ruled out as the false negative rate for molecular NAAT testing using a nasopharyngeal sample can be up to 30%, mostly dependent on the timingof sample collection in relation to illness onset and any deficiencies in sampling techniques. If the patient has symptoms concerning for COVID-19 illness, a repeat NAAT test (PCR, Rapid ID Now, etc.) should be performed, at which time the SARS-CoV-2 virus - if present - may have reached a detectable viral load (usually peaking by the end of the first week of symptoms). Tests for IgM and/or IgG Antibodies to the SARS-CoV-2 Virus:If the patient develops COVID-19 illness in the future, testing for IgMand IgG antibodies approximately 3 weeks after illness onset will likely indicate if the patient hasproduced antibodies to the SARS-CoV-2 virus. However, some patients may take longer to develop detectable antibodies, while some patients who were infected with SARS-CoV-2 may never develop antibodies.While antibodies to SARS-CoV-2 may provide some degree of immunity, at this time the strength and duration of the antibody response is unknown. Interpretation Result Comments:These interpretation comments are based upon all COVID-19 testing the patient has had at [facility], including molecular NAAT testing (more commonly known as PCR testing and Rapid ID Now testing) and antibody testing. It does not take into account any testing that a patient has had outside of the [facility] medical record. [facility] LABORATORY SERVICESCOVID ResultsSARS- CoV-2 NAAT (no units) ? ? Date ? Value ? 12/07/2020 ? Not Detected ? ? ? 10/25/2020 ? Not Detected ? ? ? 07/12/2020 ? Not Detected ?? ? 04/19/2020 ? Not Detected ? SARS-CoV-2 Rapid ID NOW (no units) ? ? Date ? Value ? 12/07/2020 ? Not Detected ? ? ? 07/09/2020 ? Not Detected ? [facility] LABORATORY SERVICES [facility] CenterBLOOD CULTURE [id number] 15:04:00 Test Item Value Reference Range Interpretation Comments Blood Culture-Aerobic Culture positive. No growth AA P revious (test code = 63407-3) See Blood prelim inary Culture Workup verified resu lt for additional was Culture I n information. Progress on 12/07/2020 at 21 01 MOLD COOLER Blood Culture positive. No growth AA Previous Culture-Anaerobic See Blood preliminar y (test code = 20538-9) Culture Workup veri fied result for additional was Culture I n information. Progress on 12/07/2020 at 21 01 MOLD COOLER Lab Interpretation Abnormal (test code = 25573-2) [facility] CenterN-TERMINAL [id number] 10:38:00 Test Item Value Reference Range Interpretation Comments NT-proBNP (test code 5120 pg/mL See_Comment H [Autom ated = 6233702614) message] The system which generated this result transmitted reference range : <=450. The reference range was not used to interpret this result as normal/abnormal . BRIGIDO (test code = BRIGIDO) Biotin has been reported to cause a negative bias, interpret results relative to patient's use of biotin. Lab Interpretation Abnormal (test code = 99526-2) [facility] CenterURIC [id number] 08:18:00 Test Item Value Reference Range Interpretation Comments URIC ACID (test code = 4069258656) 6.7 mg/dL 3.6-8 Lab Interpretation (test code = Normal 54801-8) [facility] CenterMAGNESIUM2021-02-15 08:18:00 Test Item Value Reference Range Interpretation Comments MAGNESIUM (test code = 2527220632) 1.7 mg/dL 1.7-2.4 Lab Interpretation (test code = Normal 59641-2) [facility] CenterCOMP. METABOLIC PANEL (86512)2020-12-09 08:18:00 Test Item Value Reference Range Interpretation Comments NA (test code = 137 mmol/L 135-145 7204939382) K (test code = 3.8 mmol/L 3.5-5 6082734244) CL (test code = 105 mmol/L 98-108 0954098271) CO2 TOTAL (test code = 22 mmol/L 23-31 L 3789148949) AGAP (test code = 2-16 7187865271) BUN (test code = 19 mg/dL 7-23 4767542631) GLUCOSE (test code = 221 mg/dL 70-110 H 4817523670) CREATININE (test code = 1.15 mg/dL 0.6-1.25 2784849171) TOTAL BILI (test code = 0.6 mg/dL 0.1-1.0 9638886158) CALCIUM (test code = 8.5 mg/dL 8.6-10.6 L 0146548120) T PROTEIN (test code = 6.3 g/dL 6.3-8.2 3771479986) ALBUMIN (test code = 3.8 g/dL 3.5-5 9918394972) ALK PHOS (test code = 86 U/L 34-122 7291632058) ALTv (test code = 12 U/L 5-50 1742-6) AST(SGOT) (test code = 25 U/L 13-40 6981622292) eGFR Calculation mL/min/1.73m2 (Non-) (test code = 4466309468) eGFR Calculation mL/min/1.73m2 () (test code = 7943161938) BRIGIDO (test code = BRIGIDO) Association of Glomerular Filtration Rate (GFR) and Staging of Kidney Disease* + --+ --+ ------+| GFR (mL/min/1.73 m2) ?| With Kidney Damage ?| ?Without Kidney Damage+ --------+ --------+ +| ?>90 ?| ?Stage one ?| ? Normal ?+ ---+ ---+ -------+| ?60-89 ?| ?Stage two ?| ? Decreased GFR ? + --+ --+ ------+| ?30-59 ?| ?Stage three ?| ? Stage three ? + --+ --+ ------+| ?15-29 ?| ?Stage four ? | ? Stage four ?+ ---+ ---+ -------+| ?<15 (or dialysis) ? ?| ?Stage five ? | ? Stage five ?+ ---+ ---+ -------+ *Each stage assumes the associated GFR level has been in effect for at least three months. ?Stages 1 to 5, with or without kidney disease, indicate chronic kidney disease. Notes: Determination of stages one and two (with eGFR >59mL/min/1.73 m2) requires estimation of kidney damage for at least three months as defined by structural or functional abnormalities of the kidney, manifested by either:Pathological abnormalities or Markers of kidney damage (including abnormalities in the composition of the blood or urine or abnormalities in imaging tests). Lab Interpretation Abnormal (test code = 70419-4) [facility] UNCONJUGATED/BILI [id number] 08:17:00 Test Item Value Reference Range Interpretation Comments BILI CONJ (test code = 9192433457) 0.0 mg/dL 0-0.3 BILI UNCON (test code = 4796316641) 0.4 mg/dL 0.1-1.1 Lab Interpretation (test code = Normal 00964-0) [facility] WITH [id number] 08:04:00 Test Item Value Reference Range Interpretation Comments WBC (test code = See_Comment H [Automated 6690-2) message] The system which generated this result transmit chava reference range : 4.20 - 10.70 10*3/?L. The reference range was not used to interpret this result as normal/abnormal . RBC (test code = See_Comment [Automated 789-8) message] The system which generated this result transmit chava reference range : 4.26 - 5.52 10*6/?L. The reference range was not used to interpret this result as normal/abnormal . HGB (test code = 14.4 g/dL 12.2-16.4 718-7) HCT (test code = 42.3 % 38.4-49.3 4544-3) MCV (test code = 92.2 fL 81.7-95.6 787-2) MCH (test code = 31.4 pg 26.1-32.7 785-6) MCHC (test code = 34.0 g/dL 31.2-35 786-4) RDW-SD (test code = 41.1 fL 38.5-51.6 99934-6) RDW-CV (test code = 12.4 % 12.1-15.4 788-0) PLT (test code = See_Comment [Automated 777-3) message] The system which generated this result transmit chava reference range : 150 - 328 10*3/ ?L. The reference range was not u sed to interpret th is result as normal/abnormal . MPV (test code = 9.9 fL 9.8-13 80772-0) NRBC/100 WBC (test See_Comment [Automat ed code = 1757364077) message] The system which generated this result transmit chava reference range : 0.0 - 10.0 /100 WBCs. The reference range was not used to interpret this result as normal/abnormal . NRBC x10^3 (test code <0.01 See_Comment [Auto mated = 6394005048) message] The system which generated this result transmit chava reference range : 10*3/?L. The reference range was not used to interpret this result as normal/abnormal . GRAN MAT (NEUT) % 94.0 % (test code = 770-8) IMM GRAN % (test code 0.50 % = 2848108300) LYMPH % (test code = 2.3 % 736-9) MONO % (test code = 3.1 % 5905-5) EOS % (test code = 0.0 % 713-8) BASO % (test code = 0.1 % 706-2) GRAN MAT x10^3(ANC) 14.08 10*3/uL 1.99-6.95 H (test code = 2552104709) IMM GRAN x10^3 (test 0.08 10*3/uL 0-0.06 H code = 4218439550) LYMPH x10^3 (test code 0.35 10*3/uL 1.09-3.23 L = 731-0) MONO x10^3 (test code 0.47 10*3/uL 0.36-1.02 = 742-7) EOS x10^3 (test code = <0.03 0.06-0.53 L 711-2) BASO x10^3 (test code <0.03 0.01-0.09 = 704-7) Lab Interpretation Abnormal (test code = 09598-1) [facility] CenterPOCT GLUCOSE (AUTOMATED)2020-12-09 03:50:00 Test Item Value Reference Range Interpretation Comments POCT GLU (test code = 0175099988) 212 mg/dL 70-110 H Lab Interpretation (test code = Abnormal 72020-3) [facility] CenterXR ABDOMEN 1 [id number] 02:32:31No bowel distention. RL: 5611 END OF REPORT Ordering Physician: MARGARITA CASE Clinical Indication: nausea/vomiting Additional Clinical Information: Comparison: None Technique: Portable abdomen obtained at 2030 hours Technical Quality: Good Findings: There are surgical clips in the right medial abdomen. There is nobowel distention. There is no visceromegaly. [facility], Radiant Results Inft User - 12/08/2020 8:33 PM CSTOrdering Physician: MARGARITA Castorenainical Indication: nausea/vomiting Additional Clinical Information:Comparison: NoneTechnique: Portable abdomen obtained at 2030 hoursTechnical Quality: GoodFindings: There are surgical clips inthe right medial abdomen. There is nobowel distention. There is no visceromegaly.IMPRESSIONNo bowel distention.RL: 5611END OF REPORT Un[facility] COVID [id number] 00:21:00COVID DMT InterpretationInterpretation/Recommendations:Molecular NAAT Tests for Active Infection with the SARS-CoV-2 Virus:The patient has currently tested negative for the SARS-CoV-2 virus that causesCOVID-19 illness. This most likely indicates that the patient does not have an active infection withthe SARS-CoV-2 virus. However, infection is not completely ruled out as the false negative rate for m olecular NAAT testing using a nasopharyngeal sample can be up to 30%, mostly dependent on the timingof sample collection in relation to illness onset and any deficiencies in sampling techniques. If the patient has symptoms concerning for COVID-19 illness, a repeat NAAT test (PCR, Rapid ID Now, etc.) should be performed, at which time the SARS-CoV-2 virus - if present - may have reached a detectable viral load (usually peaking by the end of the first week of symptoms). Tests for IgM and/or IgG Antibodies to the SARS-CoV-2 Virus:If the patient develops COVID-19 illness in the future, testing for IgMand IgG antibodies approximately 3 weeks after illness onset will likely indicate if the patient hasproduced antibodies to the SARS-CoV-2 virus. However, some patients may take longer to develop detectable antibodies, while some patients who were infected with SARS-CoV-2 may never develop antibodies.While antibodies to SARS-CoV-2 may provide some degree of immunity, at this time the strength and duration of the antibody response is unknown. Interpretation Result Comments:These interpretation comments are based upon all COVID-19 testing the patient has had at [facility], including molecular NAAT testing (more commonly known as PCR testing and Rapid ID Now testing) and antibody testing. It does not take into account any testing that a patient has had outside of the [facility] medical record. [facility] LABORATORY SERVICESCOVID ResultsSARS- CoV-2 NAAT (no units) ? ? Date ? Value ? 12/07/2020 ? Not Detected ? ? ? 10/25/2020 ? Not Detected ? ? ? 07/12/2020 ? Not Detected ?? ? 04/19/2020 ? Not Detected ? SARS-CoV-2 Rapid ID NOW (no units) ? ? Date ? Value ? 12/07/2020 ? Not Detected ? ? ? 07/09/2020 ? Not Detected ? [facility] CenterGRAM NEGATIVE BLOOD PATHOGENS DNA [id number] 21:50:00 Test Item Value Reference Range Interpretation Comments Escherichia coli (test Positive Negative, See A code = 99538-8) Comment/Narrative CTX-M (test code = Positive Negative, See A 15414-1) Comment/Narrative BRIGIDO (test code = BRIGIDO) Gram-negative bacteria with extended-spectrum beta-lactamase (ESBL) production detected by DNA probe. Preferred therapy is ertapenem. ?Infectious Diseases consultationis recommended. Please contact the Antimicrobial Stewardship Program with questions.ASP Pager: ?[phone] __ See blood culture result for additional information. ?Testing included eight identification and six resistance marker targets. Lab Interpretation Abnormal (test code = 27250-6) [facility] CenterPROCALCITONIN2021-02-14 16:47:00 Test Item Value Reference Range Interpretation Comments Procalcitonin (test 19.12 ng/mL <0.07 H code = 6888687907) BRIGIDO (test code = BRIGIDO) INTERPRETATION OF PROCALCITONIN RESULTS IN ADULTS >= 18 YEARS OF AGE Initiation and discontinuation of antibiotics on patients with suspected or confirmed Lower Respiratory Tract Infection in Adults >= 18 years of age. + +-------- --------+ + -----+|Procalcitonin |Interpretation ?|Antibiotic ? ? |Considerations ? |ng/mL ? | ?|recommendation | ? + +-------- --------+ + -----+| <0.1 ? | Bacterial ? ? ?| Strongly ? ? ?| ? | ?| infection very | discouraged ? | Overruling: ? | ?| unlikely ? ? ? | ? | ? Clinically unstable ? ? ? + +-------- --------+ + ? High risk for adverse ? ? | <0.25 ?| Bacterial ? ? ?| Discouraged ? | ? outcome ? | ?| infection ? ? ?| ? | ? SEE IMPORTANT NOTE ?| ?| unlikely ? ? ? | ? | ? + +-------- --------+ + -----+| >=0.25 ? ? ? | Bacterial ? ? ?| Encouraged ? ?| ? | ?| infection ? ? ?| ? | ? | ?| likely ? | ? | Consider treatment failure ?+ +------- ---------+ -+ if levels does not decrease | >0.5 ? | Bacterial ? ? ?| Strongly ? ? ?| appropriately ? | ?| infection very | encouraged ? ?| ? | ?| likely ? | ? | ? + +-------- --------+ + -----+ Discontinuation of antibiotics in high-acuity patients with suspected or confirmed sepsis in Adults >= 18 years of age. + +-------- --------+ + -----+|Procalcitonin |Interpretation ?|Antibiotic ? ? |Considerations ? |ng/mL ? | ?|recommendation | ? + +-------- --------+ + -----+| <0.25 ?| Bacterial ? ? ?| Strongly ? ? ?| ? | ?| infection very | discouraged ? | Overruling: ? | ?| unlikely ? ? ? | ? | ? Clinically unstable ? ? ? + +-------- --------+ + ? High risk for adverse ? ? | <0.5 or drop | Bacterial ? ? ?| Discouraged ? | ? outcome ? | >80% from ? ?| infection ? ? ?| ? | ? SEE IMPORTANT NOTE ?| highest PCT ?| unlikely ? ? ? | ? | ? | level ?| ?| ? | ? + +-------- --------+ + -----+| >=0.5 ?| Bacterial ? ? ?| Encouraged ? ?| ? | ?| infection ? ? ?| ? | ? | ?| likely ? | ? | Consider treatment failure ?+ +------- ---------+ -+ if levels does not decrease | >1.0 ? | Bacterial ? ? ?| Strongly ? ? ?| appropriately ? | ?| infection very | encouraged ? ?| ? | ?| likely ? | ? | ? + +-------- --------+ + -----+ Percentage of drop of Procalcitonin calculation for Discontinuation of antibiotics in high-acuity patients with suspected or confirmed sepsis in Adults >= 18 years of age. ? Procalcitonin highest{}-Procalcitonin current{}Delta Procalcitonin = x100% ? Procalcitonin current {} IMPORTANT NOTE: Procalcitonin may be elevated without bacterial infection by physiologic stress related to trauma, sanderson, chronic dialysis, metastatic cancer, surgery in the past seven days, malaria, some fungal infections, and some forms of vasculitis. The interpretation algorithm may not apply to patients with immunosuppression (equivalent of >10 mg of prednisone daily), HIV with CD4 cell count < 350 cells/mm3, active malignancy on systemic chemotherapy, solid organ transplant or hematopoietic stem cell transplantation, or hospital acquired pneumonia. Additionally, some clinical trials of procalcitonin have excluded patients with shock requiring vasopressor use, acute respiratory failure requiring mechanical ventilation, or those with known lung abscess/empyema. For further information please refer to:[email or web address] Lab Interpretation Abnormal (test code = 67179-5) [facility] CenterSEDIMENTATION [id number] 12:27:00 Test Item Value Reference Range Interpretation Comments ESR (test code = See_Comment H [Automated message] 0954715823) The system [employer] generated this result transmitted ref erence range: 0 - 10 m m/HR. The reference r harvinder was not used to interpret this result as normal/abnor mal. Lab Interpretation (test Abnormal code = 55115-7) [facility] CenterN-TERMINAL [id number] 12:13:00 Test Item Value Reference Range Interpretation Comments NT-proBNP (test code 4860 pg/mL See_Comment H [Autom ated = 4718746389) message] The system which generated this result transmitted reference range : <=450. The reference range was not used to interpret this result as normal/abnormal . BRIGIDO (test code = BRIGIDO) Biotin has been reported to cause a negative bias, interpret results relative to patient's use of biotin. Lab Interpretation Abnormal (test code = 07378-6) [facility] CenterBA[facility] (NA, K, CL, CO2, GLUCOSE, BUN, CREATININE, CA)2020-12-08 12:05:00 Test Item Value Reference Range Interpretation Comments NA (test code = 137 mmol/L 135-145 3172045779) K (test code = 3.8 mmol/L 3.5-5 4296653091) CL (test code = 107 mmol/L 98-108 4033630498) CO2 TOTAL (test code = 23 mmol/L 23-31 5884135211) AGAP (test code = 2-16 0365133904) BUN (test code = 25 mg/dL 7-23 H 0687016006) GLUCOSE (test code = 128 mg/dL 70-110 H 5740788786) CREATININE (test code = 1.39 mg/dL 0.6-1.25 H 3220481815) CALCIUM (test code = 8.2 mg/dL 8.6-10.6 L 1637036118) eGFR Calculation mL/min/1.73m2 (Non-) (test code = 7677692056) eGFR Calculation mL/min/1.73m2 () (test code = 6121607176) BRIGIDO (test code = BRIGIDO) Association of Glomerular Filtration Rate (GFR) and Staging of Kidney Disease* + --+ --+ ------+| GFR (mL/min/1.73 m2) ?| With Kidney Damage ?| ?Without Kidney Damage+ --------+ --------+ +| ?>90 ?| ?Stage one ?| ? Normal ?+ ---+ ---+ -------+| ?60-89 ?| ?Stage two ?| ? Decreased GFR ? + --+ --+ ------+| ?30-59 ?| ?Stage three ?| ? Stage three ? + --+ --+ ------+| ?15-29 ?| ?Stage four ? | ? Stage four ?+ ---+ ---+ -------+| ?<15 (or dialysis) ? ?| ?Stage five ? | ? Stage five ?+ ---+ ---+ -------+ *Each stage assumes the associated GFR level has been in effect for at least three months. ?Stages 1 to 5, with or without kidney disease, indicate chronic kidney disease. Notes: Determination of stages one and two (with eGFR >59mL/min/1.73 m2) requires estimation of kidney damage for at least three months as defined by structural or functional abnormalities of the kidney, manifested by either:Pathological abnormalities or Markers of kidney damage (including abnormalities in the composition of the blood or urine or abnormalities in imaging tests). Lab Interpretation Abnormal (test code = 13173-4) [facility] CenterHEPATIC FUNCTION PANEL (67866) (ALB,T.PRO,BILI T,BU/BC,ALT,AST,ALK PHOS)2020-12-08 12:05:00 Test Item Value Reference Range Interpretation Comments TOTAL BILI (test code = 0996193106) 0.6 mg/dL 0.1-1.1 BILI UNCON (test code = 1682773583) 0.6 mg/dL 0.1-1.1 BILI CONJ (test code = 3482082739) 0.0 mg/dL 0-0.3 T PROTEIN (test code = 7437361357) 5.3 g/dL 6.3-8.2 L ALBUMIN (test code = 2966522619) 3.0 g/dL 3.5-5 L ALK PHOS (test code = 0153896091) 71 U/L 34-122 ALTv (test code = 1742-6) 10 U/L 5-50 AST(SGOT) (test code = 7011621113) 20 U/L 13-40 Lab Interpretation (test code = Abnormal 93068-6) [facility] [id number] 12:05:00 Test Item Value Reference Range Interpretation Comments URIC ACID (test code = 2865587320) 7.3 mg/dL 3.6-8 Lab Interpretation (test code = Normal 24899-3) [facility] CenterMAGNESIUM2021-02-14 12:05:00 Test Item Value Reference Range Interpretation Comments MAGNESIUM (test code = 3504183354) 1.8 mg/dL 1.7-2.4 Lab Interpretation (test code = Normal 02366-5) [facility] CenterPHOSPHORUS2021-02-14 12:05:00 Test Item Value Reference Range Interpretation Comments PHOSPHORUS (test code = 4492880261) 2.7 mg/dL 2.5-5 Lab Interpretation (test code = Normal 70459-3) [facility] CenterCBC WITH [id number] 11:57:00 Test Item Value Reference Range Interpretation Comments WBC (test code = See_Comment H [Automated 9490-2) message] The system which generated this result transmit chava reference range : 4.20 - 10.70 10*3/?L. The reference range was not used to interpret this result as normal/abnormal . RBC (test code = See_Comment L [Automated 789-8) message] The system which generated this result transmit chava reference range : 4.26 - 5.52 10*6/?L. The reference range was not used to interpret this result as normal/abnormal . HGB (test code = 13.6 g/dL 12.2-16.4 718-7) HCT (test code = 39.8 % 38.4-49.3 4544-3) MCV (test code = 94.1 fL 81.7-95.6 787-2) MCH (test code = 32.2 pg 26.1-32.7 785-6) MCHC (test code = 34.2 g/dL 31.2-35 786-4) RDW-SD (test code = 43.5 fL 38.5-51.6 35848-1) RDW-CV (test code = 12.6 % 12.1-15.4 788-0) PLT (test code = See_Comment [Automated 777-3) message] The system which generated this result transmit chava reference range : 150 - 328 10*3/ ?L. The reference range was not u sed to interpret th is result as normal/abnormal . MPV (test code = 10.3 fL 9.8-13 31265-9) NRBC/100 WBC (test See_Comment [Automat ed code = 2593842953) message] The system which generated this result transmit chava reference range : 0.0 - 10.0 /100 WBCs. The reference range was not used to interpret this result as normal/abnormal . NRBC x10^3 (test code <0.01 See_Comment [Auto mated = 3740977757) message] The system which generated this result transmit chava reference range : 10*3/?L. The reference range was not used to interpret this result as normal/abnormal . GRAN MAT (NEUT) % 89.3 % (test code = 770-8) IMM GRAN % (test code 0.60 % = 6103638979) LYMPH % (test code = 5.6 % 736-9) MONO % (test code = 4.0 % 5905-5) EOS % (test code = 0.3 % 713-8) BASO % (test code = 0.2 % 706-2) GRAN MAT x10^3(ANC) 15.77 10*3/uL 1.99-6.95 H (test code = 3089213582) IMM GRAN x10^3 (test 0.10 10*3/uL 0-0.06 H code = 3469485529) LYMPH x10^3 (test code 0.98 10*3/uL 1.09-3.23 L = 731-0) MONO x10^3 (test code 0.71 10*3/uL 0.36-1.02 = 742-7) EOS x10^3 (test code = 0.06 10*3/uL 0.06-0.53 711-2) BASO x10^3 (test code 0.03 10*3/uL 0.01-0.09 = 704-7) Lab Interpretation Abnormal (test code = 39692-7) [facility] CenterLactic Acid Whole [id number] 11:14:00 Test Item Value Reference Range Interpretation Comments LACTIC ACID (test code = 1.55 mmol/L 0.5-2.2 0306112950) Lab Interpretation (test code = Normal 41485-6) [facility] CenterCORONAVIRUS COVID-19 [id number] 09:34:00 Test Item Value Reference Range Interpretation Comments SARS-CoV-2 NAAT (test Not Detected Not Detected code = 50730-5) BRIGIDO (test code = BRIGIDO) Newberry Fusion SARS-CoV-2 Assay is a real-time RT-PCR test intended for the qualitative detection of RNA from SARS-CoV-2 from nasopharyngeal (ENVIRONMENTAL SERVICES COORDINATOR) specimens. It is used under Emergency Use Authorization (EUA) by FDA. A positive result is indicative of the presence of SARS-CoV-2 RNA. ?Clinical correlation with patient history and other diagnostic information is necessary to determine patient infection status. A negative (Not Detected) result does not preclude SARS-CoV-2 infection. Clinical correlation with patient history and other diagnostic information should be used in patient management decisions. Invalid: Please collect a new specimen for repeat patient testing if clinically indicated. Lab Interpretation Normal (test code = 85927-1) [facility] CenterGLYCOSYLATED HEMOGLOBIN (A1C)2020-12-08 08:08:00 Test Item Value Reference Range Interpretation Comments HGB A1C (test code = 7.4 % 4-6 H 4548-4) BRIGIDO (test code = BRIGIDO) %A1C (NGSP) Interpretation (ADA)4.8-5.6 ? ? Normal or (Non-Diabetic Range)5.7-6.4 ? ? Increased Risk (Pre-Diabetic)>6.5 ?Diabetes Indicated Lab Interpretation Abnormal (test code = 57986-6) [facility] CenterPROTHROMBIN TIME / [id number] 07:53:00 Test Item Value Reference Range Interpretation Comments PROTIME PATIENT (test See_Comment [Auto mated message] code = 5964-2) The system 1001 Menus generated this result transmitted ref erence range: 12.0 - 1 4.7 Seconds. The re ference range was not u sed to interpret this result as normal/abnor mal. INR (test code = 6301-6) Nor mal INR <1.1; Warfarin Therap eutic range 2.0 to 3. 0 or 2.5 to 3.5, dep ending upon the indica tions. Lab Interpretation (test Normal code = 01848-8) [facility] CenterURIC [id number] 07:52:00 Test Item Value Reference Range Interpretation Comments URIC ACID (test code = 7205202957) 8.1 mg/dL 3.6-8 H Lab Interpretation (test code = Abnormal 39573-9) [facility] CenterLIPID PANEL (48145)(TOTAL CHOLESTEROL, TRIGLYCERIDES, HDL)2020-12-08 07:52:00 Test Item Value Reference Range Interpretation Comments CHOL (test code = 193 mg/dL 120-200 2820711560) HDL (test code = 36 mg/dL >40 L 5560881298) HDLC RATIO (test code = See_Comment H [Au tomated message] 4421130933) The system [employer] generated this result transmit chava reference range : <=5.0. The refe rence range was not u sed to interpret th is result as normal/abnormal . TRIG (test code = 134 mg/dL 30-170 9632925396) LDL CHOL (test code = 130 mg/dL See_Comment [Auto mated message] 19348-6) The system [employer] generated this result transmit chava reference range : <=160. The refe rence range was not u sed to interpret th is result as normal/abnormal . VLDL (test code = 27 mg/dL 5-60 7668954130) Lab Interpretation (test Abnormal code = 97094-3) [facility] CenterTHYROID STIMULATING [id number] 07:42:00 Test Item Value Reference Range Interpretation Comments TSH (test code = See_Comment [Automated message] 2809784977) The system [employer] generated this result transmitted ref erence range: 0.45 - 4 .70 mIU/L. The refe rence range was not u sed to interpret this result as normal/abnor mal. Lab Interpretation (test Normal code = 01089-6) [facility] CenterCT ABDOMEN PELVIS WO [id number] 07:37:10 No acute process identified in the abdomen or pelvis. Status post right nephrectomy. Persistent hematuria in the absence of urinary system calculus may warrantfurther evaluation. Multiple cortical cysts without hydronephrosis or renal calculus. Colonic diverticulosis without evidence for acute diverti culitis. RL: 460 AFC: [id number] Ordering physician: MARGARITA CASE Indication: Abdominal pain, flank pain, hematuria COMPARISON: NoneTECHNIQUE: Axial images of the abdomen and pelvis were performed withoutthe administration of intravenous contrast material. Images werereformatted in the coronal and sagittal plane. CT scan was performedaccording to ALARA (as low as reasonably achievable) policy. FINDINGS: There is mild dependent atelectasis in the lung bases. Thenoncontrast appearance of the liver, gallbladder, spleen, adrenal glandsand pancreas is within normal limits. The patient is status post rightnephrectomy. There are multiple cortical cysts in the left kidney,measuring up to 4.4 cm. There is no hydronephrosis or renal calculus. Thereis atherosclerotic calcification of the aorta without significantaneurysmal dilatation. There is no free fluid in the pelvis. There is no bowel obstruction. Thereis prominent sigmoid diverticulosis without evidence for acutediverticulitis. The appendix is not separately identified. Bone windowsthrough the abdomen and pelvis demonstrate no osseous destructive lesion. [facility], Radiant Results Inft User - 12/08/2020 1:38 AM CSTOrdering physician: MARGARITA Ramsayication: Abdominal pain, flank pain, hematuriaCOMPARISON: NoneTECHNIQUE: Axial images of the abdomen and pelvis were performed withoutthe administration of intravenous contrast material. Images werereformatted in the coronal and sagittal plane. CT scan was performedaccording to ALARA (as low as reasonably achievable) policy.FINDINGS: There is mild dependent atelectasis in the lung bases. Thenoncontrast appearance of the liver, gallbladder, spleen, adrenal glandsand pancreas is within normal limits. The patient is status post rightnephrectomy. There are multiple cortical cysts in the left kidney,measuring up to 4.4 cm. There is no hydronephrosis or renal calculus. Thereis atherosclerotic calcification of the aorta without significantaneurysmal dilatation.There is no free fluid in the pelvis. There is no bowel obstruction. Thereisprominent sigmoid diverticulosis without evidence for acutediverticulitis. The appendix is not separately identified. Bone windowsthrough the abdomen and pelvis demonstrate no osseous destructive lesion .IMPRESSIONNo acute process identified in the abdomen or pelvis.Status post right nephrectomy.Persistent hematuria in the absence of urinary system calculus may warrantfurther evaluation.Multiple cortical cysts without hydronephrosis or renal calculus.Colonic diverticulosis without evidence for acute d iverticulitis.RL: 460AF: [id number] signed by Ninoska Avila MD, PhD at 12/08/2020 1:37AMUnCH[facility] MarshallLactic Acid Whole Blood 2020-12-08 07:35:00 Test Item Value Reference Range Interpretation Comments LACTIC ACID (test code = 2.72 mmol/L 0.5-2.2 H 4358619183) Lab Interpretation (test code = Abnormal 82239-0) [facility] CenterMAGNESIUM2021-02-14 07:11:00 Test Item Value Reference Range Interpretation Comments MAGNESIUM (test code = 5344543755) 1.8 mg/dL 1.7-2.4 Lab Interpretation (test code = Normal 41693-3) [facility] CenterPHOSPHORUS2021-02-14 07:11:00 Test Item Value Reference Range Interpretation Comments PHOSPHORUS (test code = 7691188700) 1.7 mg/dL 2.5-5 L Lab Interpretation (test code = Abnormal 91883-2) [facility] CenterCREATINE [id number] 07:10:00 Test Item Value Reference Range Interpretation Comments CK (test code = 8972233256) 36 U/L 33-194 Lab Interpretation (test code = Normal 99799-9) [facility] CenterUrinalysis2021-02-14 02:26:00 Test Item Value Reference Range Interpretation Comments APPEARANCE (test code = Hazy Clear A 9714716859) COLOR (test code = Yellow Yellow 8523872658) PH (test code = 4.8-8.0 3629472908) SP GRAVITY (test code = 1.003-1.030 0468508459) GLU U QUAL (test code = Normal Normal 5866588592) BLOOD (test code = 3+ Negative A 8800123222) KETONES (test code = Negative Negative 0097042997) PROTEIN (test code = 30 mg/dL Negative A 2887-8) UROBILIN (test code = Normal Normal 4523219030) BILIRUBIN (test code = Negative Negative 5428351515) NITRITE (test code = Negative Negative 6007910497) LEUK CARLOS A (test code = 25/uL Negative A 7268443077) RBC/HPF (test code = >182 See_Comment H [Autom ated message] 2482884716) The system [employer] generated this result transmitted ref erence range: 0 - 3 HP F. The reference range was not used to int erpret this result as normal/abnormal . WBC/HPF (test code = See_Comment H [Autom ated message] 1951077215) The system [employer] generated this result transmitted ref erence range: 0 - 5 HP F. The reference range was not used to int erpret this result as normal/abnormal . BACTERIA (test code = Moderate Negative A 3639526536) Lab Interpretation (test Abnormal code = 62036-7) [facility] CenterLactic Acid Whole [id number] 02:08:00 Test Item Value Reference Range Interpretation Comments LACTIC ACID (test code = 2.92 mmol/L 0.5-2.2 H 2665773604) Lab Interpretation (test code = Abnormal 71072-9) [facility] CenterCOVID-19 (ID NOW RAPID TESTING)2020-12-08 00:03:00 Test Item Value Reference Range Interpretation Comments SARS-CoV-2 Rapid ID NOW Not Detected Not Detected (test code = 98395-0) BRIGIDO (test code = BRIGIDO) ID NOW COVID-19 Assay is an isothermal nucleic acid amplification test intended for the qualitative detection of nucleic acid from SARS-CoV-2 viral RNA in nasopharyngeal (ENVIRONMENTAL SERVICES COORDINATOR) specimens. It is used under Emergency Use Authorization (EUA) by FDA. The limit of detection (LOD) of the assay is 125 Genome Equivalents/mL. A positive result is indicative of the presence of SARS-CoV-2 RNA. ?Clinical correlation with patient history and other diagnostic information is necessary to determine patient infection status. A negative (Not Detected) result does not preclude SARS-CoV-2 infection. In patients with clinical symptoms and other tests that are consistent with SARS-CoV-2 infection, negative results should be treated as presumptive negative and a new specimen should be tested with alternative PCR molecular test. Invalid: Please collect a new specimen for repeat patient testing if clinically indicated. Lab Interpretation Normal (test code = 55662-8) [facility] CenterCliffordelsa [id number] 23:49:00 Test Item Value Reference Range Interpretation Comments TROPONIN I (test 0.010 ng/mL See_Comment [Automated code = 2571208219) message] The system which generated this result transmitted reference range : <=0.034. The reference range was not used to interpret this result as normal/abnormal . BRIGIDO (test code = Equal or Less than BRIGIDO) 0.034 ng/ml---Normal ?Note: Cardiac troponin begins to rise 3-4 hours after the onset of ischemia. Repeat in 4-6 hours if the sample was drawn within 3-4 hours of the onset of the symptom and found normal. Between 0.035 and 0.120 ng/mL--- Borderline. Questionable myocardial injury or necrosis ? ?Note: Serial measurement may be necessary to confirm or exclude the diagnosis of myocardial injury or necrosis; Clinical correlation (symptoms, EKGs, imaging studies, and others) required; Repeat in 4-6 hours if clinically indicated. ? Equal or Higher than 0.121 ng/mL---Abnormal. Myocardial Injury or Necrosis Likely ? Biotin has been reported to cause a negative bias, interpret results relative to patient's use of biotin. ? Lab Interpretation Normal (test code = 13936-0) [facility] CenterN-TERMINAL [id number] 23:45:00 Test Item Value Reference Range Interpretation Comments NT-proBNP (test code 2170 pg/mL See_Comment H [Autom ated = 6054360362) message] The system which generated this result transmitted reference range : <=450. The reference range was not used to interpret this result as normal/abnormal . BRIGIDO (test code = BRIGIDO) Biotin has been reported to cause a negative bias, interpret results relative to patient's use of biotin. Lab Interpretation Abnormal (test code = 72672-7) [facility] CenterBablue[facility] (NA, K, CL, CO2, GLUCOSE, BUN, CREATININE, CA)2020-12-07 23:37:00 Test Item Value Reference Range Interpretation Comments NA (test code = 136 mmol/L 135-145 2324283781) K (test code = 3.8 mmol/L 3.5-5 7098024302) CL (test code = 102 mmol/L 98-108 9509997519) CO2 TOTAL (test code = 22 mmol/L 23-31 L 5405918567) AGAP (test code = 2-16 3938898059) BUN (test code = 25 mg/dL 7-23 H 0587420839) GLUCOSE (test code = 202 mg/dL 70-110 H 7296151025) CREATININE (test code = 1.41 mg/dL 0.6-1.25 H 6090768500) CALCIUM (test code = 9.0 mg/dL 8.6-10.6 5208006929) eGFR Calculation mL/min/1.73m2 (Non-) (test code = 3742350467) eGFR Calculation mL/min/1.73m2 () (test code = 1829339025) BRIGIDO (test code = BRIGIDO) Association of Glomerular Filtration Rate (GFR) and Staging of Kidney Disease* + --+ --+ ------+| GFR (mL/min/1.73 m2) ?| With Kidney Damage ?| ?Without Kidney Damage+ --------+ --------+ +| ?>90 ?| ?Stage one ?| ? Normal ?+ ---+ ---+ -------+| ?60-89 ?| ?Stage two ?| ? Decreased GFR ? + --+ --+ ------+| ?30-59 ?| ?Stage three ?| ? Stage three ? + --+ --+ ------+| ?15-29 ?| ?Stage four ? | ? Stage four ?+ ---+ ---+ -------+| ?<15 (or dialysis) ? ?| ?Stage five ? | ? Stage five ?+ ---+ ---+ -------+ *Each stage assumes the associated GFR level has been in effect for at least three months. ?Stages 1 to 5, with or without kidney disease, indicate chronic kidney disease. Notes: Determination of stages one and two (with eGFR >59mL/min/1.73 m2) requires estimation of kidney damage for at least three months as defined by structural or functional abnormalities of the kidney, manifested by either:Pathological abnormalities or Markers of kidney damage (including abnormalities in the composition of the blood or urine or abnormalities in imaging tests). Lab Interpretation Abnormal (test code = 73450-3) [facility] CenterHepatic Function Panel (ALB, T.PRO, BILI T, BU/BC, ALT, AST, ALK PHOS)2020-12-07 23:37:00 Test Item Value Reference Range Interpretation Comments TOTAL BILI (test code = 9273627614) 0.7 mg/dL 0.1-1.1 BILI UNCON (test code = 7852142360) 0.6 mg/dL 0.1-1.1 BILI CONJ (test code = 8813464141) 0.0 mg/dL 0-0.3 T PROTEIN (test code = 4077180136) 6.3 g/dL 6.3-8.2 ALBUMIN (test code = 5983841643) 3.9 g/dL 3.5-5 ALK PHOS (test code = 4537676259) 104 U/L 34-122 ALTv (test code = 1742-6) 12 U/L 5-50 AST(SGOT) (test code = 0841472081) 23 U/L 13-40 Lab Interpretation (test code = Normal 44410-4) [facility] CenterCBC with [id number] 23:30:00 Test Item Value Reference Range Interpretation Comments WBC (test code = See_Comment [Automated 6690-2) message] The sy stem which generated this result transmitted reference range : 4.20 - 10.70 10*3/?L. The reference range was not used to interpret this result as normal/abnormal . RBC (test code = See_Comment [Automated 789-8) message] The sy stem which generated this result transmitted reference range : 4.26 - 5.52 10*6/?L. The reference range was not used to interpret this result as normal/abnormal . HGB (test code = 15.3 g/dL 12.2-16.4 718-7) HCT (test code = 45.4 % 38.4-49.3 4544-3) MCV (test code = 93.0 fL 81.7-95.6 787-2) MCH (test code = 31.4 pg 26.1-32.7 785-6) MCHC (test code = 33.7 g/dL 31.2-35 786-4) RDW-SD (test code = 42.0 fL 38.5-51.6 87753-5) RDW-CV (test code = 12.2 % 12.1-15.4 788-0) PLT (test code = See_Comment [Automated 777-3) message] The sy stem which generated this result transmitted reference range : 150 - 328 10*3/ ?L. The reference r harvinder was not used to interpret this result as normal/abnormal . MPV (test code = 9.7 fL 9.8-13 L 21655-7) NRBC/100 WBC (test See_Comment [Automat ed code = 2415319279) message] The system which generated this result transmitted reference range : 0.0 - 10.0 /100 WBCs. The refer ence range was not u sed to interpret th is result as normal/abnormal . NRBC x10^3 (test code <0.01 See_Comment [Auto mated = 6748910305) message] The s ystem which generated this result transmitted reference range : 10*3/?L. The reference range was not used to interpret this result as normal/abnormal . GRAN MAT (NEUT) % 97.3 % (test code = 770-8) IMM GRAN % (test code 0.40 % = 6390484039) LYMPH % (test code = 1.5 % 736-9) MONO % (test code = 0.4 % 5905-5) EOS % (test code = 0.2 % 713-8) BASO % (test code = 0.2 % 706-2) GRAN MAT x10^3(ANC) 8.05 10*3/uL 1.99-6.95 H (test code = 8429814996) IMM GRAN x10^3 (test 0.03 10*3/uL 0-0.06 code = 8611872856) LYMPH x10^3 (test code 0.12 10*3/uL 1.09-3.23 L = 731-0) MONO x10^3 (test code 0.03 10*3/uL 0.36-1.02 L = 742-7) EOS x10^3 (test code = <0.03 0.06-0.53 L 711-2) BASO x10^3 (test code <0.03 0.01-0.09 = 704-7) Lab Interpretation Abnormal (test code = 46177-8) [facility] 1 [id number] 23:22:21 No acute cardiopulmonary abnormality. Preliminary Report Dictated by Resident: Yefri Cheatham MD., have reviewed this study and agree withthe above report.XR CHEST 1 VW Comparison: None available History: fever Technique: Frontal radiograph Findings: Mild hilar vascular congestion. Left basilar subsegmental atelectasis ispresent. No pleural effusion, focal consoli dation, or pneumothorax isidentified. The cardiomediastinal silhouette is normal in size. Atheroscleroticcalcifications are seen in the aortic arch. No acute osseous abnormality is present. [facility], Radiant Results Inft User - 12/07/2020 5:23 PM CSTXR CHEST 1 VWComparison: None availableHistory: fever T echnique: Frontal radiographFindings:Mild hilar vascular congestion. Left basilar subsegmental atelectasis ispresent. No pleural effusion, focal consolidation, or pneumothorax isidentified. The cardiomediastinal silhouette is normal in size. Atheroscleroticcalcifications are seen in the aortic arch.No acute osseous abnormality is present.IMPRESSIONNo acute cardiopulmonary abnormality.Preliminary Report Dictated by Resident: Yefri Hernandes MD., have reviewed this study and agree withthe above report.[facility] CenterLactic Acid Whole [id number] 23:19:00 Test Item Value Reference Range Interpretation Comments LACTIC ACID (test code = 4.60 mmol/L 0.5-2.2 H 1422182978) Lab Interpretation (test code = Abnormal 98216-5) [facility] TIME OR (NON-REPORTABLE)2020-10-28 17:22:44 These images do not require a Radiology diagnostic report.[facility] TIME OR (NON-REPORTABLE)2020-07-15 13:18:40These images do not require a Radiology diagnostic report.[facility] MODIFIED BARIUM [id number] 19:07:34HISTORY: Dysphagia. Change in bowel habits TECHNIQUE: Swallowing function was evaluated with the patient sittingupright in a chair, in the presence of speech therapist. C-arm fluoroscopywith video imaging of her utilized. Swallowing function was evaluated usingthin barium, thick barium, barium mixed with pudding, piece of grahamcracker. FINDINGS: Swallowing function appeared normal. Patient was able t o formbolus of food, initiation of swallowing without any significant difficultyand the food material as well as barium flowed through the cervicalesophagus without any obstruction or aspiration. Smallamount of barium/pudding retention in the preepiglottic space wasnoted without any aspiration into the larynx or trachea. CONCLUSIONS: Probable mild weakness in oropharyngeal muscles and smallamount ofretention of barium/vomiting material in the preepiglottic spacenoted without aspiration into the larynx or trachea. [facility], Radiant Results Inft User - 06/26/2020 2:08 PM CDTHISTORY: Dysphagia. Change in bowel habitsTECHNIQUE: Swallowing function was evaluated with the patient sittingupright in a chair, in the presence of speech therapist. C-arm fluoroscopywith video imaging of her utilized. Swallowing function was evaluated usingthin barium, thick barium, barium mixed with pudding, piece of grahamcr pam.FINDINGS: Swallowing function appeared normal. Patient was able to formbolus of food, initiation of swallowing without any significant difficultyand the food material as well as barium flowed through the cervicalesophagus without any obstruction or aspiration.Small amount of barium/pudding retention in the preepiglottic space wasnoted without any aspiration into the larynx or trachea.CONCLUSIONS: Probable mild weakness in oropharyngeal muscles and smallamount of retention of barium/vomiting material in the preepiglottic spacenoted without aspiration into the larynx or trachea. [facility] TIME OR (NON-REPORTABLE)2020-04-22 14:11:11 These images do not require a Radiology diagnostic report.[facility] TIME OR (NON-REPORTABLE)2020-01-08 14:29:04These images do not require a Radiology diagnostic report.[facility] RETROPERITONEAL [id number] 16:04:37HISTORY: UTI. TECHNIQUE: Left kidney was evaluated in multiple planes with the patient indifferent positions. FINDINGS: Comparison is made with noncontrast enhanced CT scan of theabdomen dated 12/24/2017. Patient is status post right nephrectomy.Left kidney measured approximately 11.6 x 7.1 x 5.6 cm with corticalthickness up to 17 mm. Large anechoic lesion of 4.7 x 5.3 x 3.4 cm sizenoted in the posterior surface near the lower pole of the left kidney,consistent with Bosniak type I renal cyst. Additional smaller Bosniak typeI renal cysts are present. There is, however, one Bosniak type II cystic lesion of 19 x 11 mm size inthe lateral surface of the interpolar region of the left kidney,essentially unchanged when compared with noncontrast enhanced CT scan of12/24/2017. CONCLUSIONS:1. 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 Nohydronephrosis.2. S/P right nephrectomy.[facility],Radiant Results Inft User - 12/19/2019 10:05 AM CSTHISTORY: UTI.TECHNIQUE: Left kidney was evaluatedin multiple planes with the patient indifferent positions. FINDINGS: Comparison is made with noncontrast enhanced CT scan of theabdomen dated 12/24/2017.Patient is status post right nephrectomy.Left kidney measured approximately 11.6 x 7.1 x 5.6 cm with corticalthickness up to 17 mm. Large anechoic lesion of 4.7 x 5.3 x 3.4 cm sizenoted in the posterior surface near the lower pole of the left kidney,consistent with Bosniak type I renal cyst. Additional smaller Bosniak typeI renal cysts are present. There is, however, one Bosniak type II cystic lesion of 19 x 11 mm size inthe lateral surface of the interpolar region of the left kidney,essentially unchanged when compared with noncontrast enhanced CT scan of12/24/2017.CONCLUSIONS:1. 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 No hydronephrosis.2. S/P right nephrectomy.[facility] LUMBAR SPINE WO [id number] 17:13:23HISTORY: Chronic low back pain. TECHNIQUE: Sagittal T2 FRFSE, T1, STIR and axial T2 FRFSE T1 studiesoflumbar spines are obtained. Additional coronal T2 FRFSE study is alsoobtained. FINDINGS: No acute compression fracture or aggressive lesions of the bonesdetected. Spinal canal appears to be of adequate size and normalconus/cauda equina are found at the level of T12. Visualizedretroperitoneum is unremarkable for aortic aneurysm or enlarged lymph nodesor hydronephrosis. Focal ectasia of the lower abdominal aorta are noted atthe level of L4 with maximum diameter of 27 mm. Multiple cysts arepartially visualized and the left kidney. Right kidney is absent. Comparison is made with 12/24/2017 CT scan. L1-L2: Shallow Schmorl's nodes in the vertebral endplates, smallosteophytes along the ventral vertebral m argins and mild facet arthritis.No disc bulge or disc herniation into the spinal canal. L2-L3: Smallosteophytes along the ventral vertebral margins, mild facetarthritis. No disc bulge into the spinal canal or into the neural foramina. L3-L4: Minimal deformity in the upper plate could be due to remotetrauma.Small osteophytes along the ventral vertebral margins, bilateral facetarthritis noted. Bulging of the disc into right lateral recess is causingmild lateral recess stenosis with thecal sac compression. No significantnerve root compression suspected. L4-L5: Small osteophytes along the ventral vertebral margins, minimaldiffuse bulging of the disc, facet arthritis with slightly thickenedligaments causing spinal stenosis with mild to moderate circumferentialthecal sac compression. Foraminal encroachment noted on both sides but nosignificant nerve root compression suspected. L5-S1: Minimal disc bulge in the midline with minimal thecal saccompression. Bilateral facet arthritis with fluid in both facet joints andslightly thickened ligaments causing minimal thecal sac compression.Foraminal encroachment noted in both sides primarily by facet arthritiswithout significant nerve root compression. CONCLUSIONS:1. Mild spinal stenosis at L4-L5 due to bulging disc and thickenedligamentum flavum from facet arthritis causing circumferential mild tomoderate thecal sac compression.2. Mild circumferential thecal sac compression at L3-L4, L5-S1.3. Right lateral recess stenosis at L3-L4 due to bulging disc withoutsignificant nerve root compression. [facility], Radiant Results Inft User - 12/05/2019 11:14 AM CSTHISTORY: Chronic low back pain.TECHNIQUE: Sagittal T2 FRFSE, T1, STIR and axial T2 FRFSE T1 studies oflumbar spines are obtained. Additional coronal T2 FRFSE study is alsoobtained.FINDINGS: No acute compression fracture or aggressive lesions of the bonesdetected. Spinal canal appears to be of adequate size and normalconus/cauda equina are found at the level of T12. Visualizedretroperitoneum is unremarkable for aortic aneurysm or enlarged lymph nodesor hydronephrosis. Focal ectasia of the lower abdominal aorta are noted atthe level of L4 with maximum diameter of 27 mm. Multiple cysts arepartially visualized and the left kidney. Right kidney is absent.Comparison is made with 12/24/2017 CT scan.L1-L2: Shallow Schmorl's nodes in the vertebral endplates, smallosteophytes along the ventral vertebral marginsand mild facet arthritis.No disc bulge or disc herniation into the spinal canal.L2-L3: Small osteophytes along the ventral vertebral margins, mild facetarthritis. No disc bulge into the spinal canal orinto the neural foramina.L3-L4: Minimal deformity in the upper plate could be due to remote trauma.Small osteophytes along the ventral vertebral margins, bilateral facetarthritis noted. Bulging of the disc into right lateral recess is causingmild lateral recess stenosis with thecal sac compression. Nosignificantnerve root compression suspected.L4-L5: Small osteophytes along the ventral vertebral margins, minimaldiffuse bulging of the disc, facet arthritis with slightly thickenedligaments causing spinal stenosis with mild to moderate circumferentialthecal sac compression. Foraminal encroachment noted on both sides but nosignificant nerve root compression suspected.L5-S1: Minimal disc bulge in the midline with minimal thecal saccompression. Bilateral facet arthritis with fluid in both facet joints andslightly thickened ligaments causing minimal thecal sac compression.Foraminal encroachment noted in both sides primarily by facet arthritiswithout significant nerve root compression.CONCLUSIONS:1. Mild spinal stenosis at L4-L5 due to bulging disc and thickenedligamentum flavum from facet arthritis causing circumferential mild tomoderate thecal sac compression.2. Mild circumferential thecal sac compression at L3-L4, L5-S1.3. Right lateral recess stenosis at L3-L4 due to bulging disc withoutsignificant nerve root compression.[facility]
[2022-01-20 08:44] LABS: Protime INR 1.26
--- NOTE | 2022-01-20 08:45 | RAD REPORT ---
EXAM DESCRIPTION: CT - Head Brain Wo Cont - 01/20/2022 8:36 am CLINICAL HISTORY: CONFUSED COMPARISON: No comparisons TECHNIQUE: All CT scans are performed using dose optimization technique as appropriate and may inclu de automated exposure control or mA/KV adjustment according to patient size. FINDINGS: No intracranial hemorrhage, hydrocephalus or extra-axial fluid collection.No areas of brai n edema or evidence of midline shift. Cerebral atrophy with chronic small vessel ischemic changes sharon t are mild. The paranasal sinuses and mastoids are clear. The calvarium is intact. IMPRESSION: No acute intracranial abnormality.
--- NOTE | 2022-01-20 09:13 | RAD REPORT ---
EXAM DESCRIPTION: RAD - Chest Single View - 01/20/2022 9:03 am CLINICAL HISTORY: Altered mental status COMPARISON: No comparisons FINDINGS: Lines: None. Lungs: No evidence of edema or pneumonia. Pleural: No significant pleural effusions or pneumothorax. Cardiac: The heart size is within normal limits. Bones: No acute fractures. Other: IMPRESSION: No acute cardiopulmonary disease.
--- NOTE | 2022-01-20 10:19 | ER ---
Nurse's Notes [facility] Name: Dre Marina Age: 86 yrs Sex: Male : 1935 Arrival Date: 01/20/2022 Time: 08:19 Bed 3 Private MD: Diagnosis: Unspecified systolic (congestive) heart failure;Chronic kidney disease, stage 3 (moderate);Chest pain, unspecified Presentation: 01/20 08:21 Chief complaint: EMS states: Toned out for chest pain, pt HR 30-40 on arrival, gave 0.5 jl7 mg atropine and HR increased to 50s. Faculty reported pts baseline is A\T\Ox4, pt is A\T\Ox1 to self only on arrival to ED. Coronavirus screen: At this time, the client does not indicate any symptoms associated with coronavirus-19. Ebola Screen: No symptoms or risks identified at this time. Initial Sepsis Screen: Does the patient meet any 2 criteria? No. Patient's initial sepsis screen is negative. Does the patient have a suspected source of infection? No. Patient's initial sepsis screen is negative. Risk Assessment: Do you want to hurt yourself or someone else? Patient reports no desire to harm self or others. Onset of symptoms is unknown. Care prior to arrival: Medication(s) given: Normal saline infusion, 500 mL, 0.5 mg atropine IV initiated. 20 GA, in the right wrist. Transition of care: patient was received from another setting of care (long-term care facility), [facility], assisted living. 08:21 Method Of Arrival: EMS: [facility] 08:21 Acuity: CYRUS 2 jl7 Triage Assessment: 08:25 General: Appears in no apparent distress. uncomfortable, Behavior is cooperative, flat. jl7 Pain: Denies pain. Neuro: Level of Consciousness is awake, alert, obeys commands, Oriented to person. Cardiovascular: Denies chest pain, Patient's skin is warm and dry. Rhythm is irregular. Respiratory: Airway is patent Respiratory effort is even, unlabored, Respiratory pattern is regular, symmetrical. Derm: Skin is dry, Skin is pale, Skin temperature is warm. Historical: - Allergies: 08:55 Demerol; ww 08:55 PENICILLINS; ww - Home Meds: 08:25 Eliquis 2.5 mg oral tab [Active]; amlodipine 5 mg tab [Active]; finasteride 5 mg oral jl7 tab [Active]; furosemide 40 mg Oral tab [Active]; levothyroxine 100 mcg cap [Active]; Linzess 290 mcg oral cap [Active]; losartan 50 mg oral tab [Active]; metformin 500 mg Oral tab [Active]; metoprolol tartrate 50 mg Oral tab [Active]; quetiapine 50 mg oral tab [Active]; senna 8.6 mg oral cap [Active]; tamsulosin 0.4 mg oral cap [Active]; - PMHx: 08:25 Hypertensive disorder; Hypothyroidism; Diabetes mellitus; CHF; Dementia; BPH; Atrial jl7 fibrillation; - PSHx: 08:55 right nephrectomy; Neck; ww - Immunization history:: Adult Immunizations unknown. - Social history:: Smoking status: unknown Smoking status: Patient/guardian denies using tobacco, the patient reports quitting approximately 40 years ago. Screenin:30 Abuse screen: Denies threats or abuse. Denies injuries from another. Nutritional ww screening: No deficits noted. Tuberculosis screening: No symptoms or risk factors identified. Fall Risk. Assessment: 08:58 Reassessment: Pt's daughter at bedside, pt's daughter reports pt is at baseline, is not jl7 altered, normally only knows who he is not where he is or what day it is. 09:48 Reassessment: Patient appears in no apparent distress at this time. No changes from ww previously documented assessment. Patient and/or family updated on plan of care and expected duration. Pain level reassessed. General: Appears in no apparent distress. comfortable, Behavior is calm, cooperative. Pain: Denies pain. Neuro: Level of Consciousness is awake, confused, Oriented to person. Respiratory: Airway is patent Respiratory effort is even, unlabored, Respiratory pattern is regular, symmetrical. GI: No signs and/or symptoms were reported involving the gastrointestinal system. Abdomen is non-distended, Abd is soft and non tender. Derm: Skin is thin. 10:28 Reassessment: Patient appears in no apparent distress at this time. No changes from ww previously documented assessment. Patient and/or family updated on plan of care and expected duration. Pain level reassessed. Family at bedside. Reassessment:. Reassessment: Patient is alert, oriented x 3, equal unlabored respirations, skin warm/dry/pink. 11:34 Reassessment: Patient appears in no apparent distress at this time. No changes from ww previously documented assessment. Patient and/or family updated on plan of care and expected duration. Pain level reassessed. Daughter at bedside requesting to know when he will go upstairs to a room. Family updated on plan of care. 11:49 Reassessment: Assisted pt to standing position while using the urinal, pt is jl7 uncircumcised, denies urinary symptoms, pt voided 300 mL. 12:47 Reassessment: Patient appears in no apparent distress at this time. No changes from ww previously documented assessment. Patient and/or family updated on plan of care and expected duration. Pain level reassessed. Family at bedside, updated with patient having a room. Attempted to call report and nurse will assign the patient to a nurse and call back. Charge nurse notified. 12:55 Reassessment: Dr. Dorsey at bedside speaking with family. ww Vital Signs: 08:21 BP 118 / 83; Pulse 51; Resp 14; Temp 96.7; Pulse Ox 98% on R/A; Weight 81.65 kg; Height jl7 5 ft. 11 in. (180.34 cm); Pain 0/10; 09:48 BP 135 / 92; Pulse 50; Resp 16; Pulse Ox 97% ; ww 10:20 BP 143 / 70; Pulse 63; Resp 16; Pulse Ox 100% on R/A; ww 11:35 BP 110 / 80; Pulse 76; Resp 16; Pulse Ox 100% on R/A; ww 12:56 BP 130 / 74; Pulse 73; Resp 16; Pulse Ox 99% on R/A; ww 13:26 BP 130 / 74; Pulse 68; Resp 14; Temp 97.1; Pulse Ox 100% on R/A; ww 08:21 Body Mass Index 25.10 (81.65 kg, 180.34 cm) 7 ED Course: 08:19 Patient arrived in ED. ss 08:21 Gini Pineda, RN is Primary Nurse. jl7 08:21 Doug Clarke MD is Attending Physician. rn 08:21 Attending Physician role handed off by Doug Clarke MD rn 08:21 Ramón Clark DO is Attending Physician. rn 08:25 Triage completed. jl7 08:25 Arm band placed on right wrist. jl7 08:30 Patient has correct armband on for positive identification. Bed in low position. Call ww light in reach. Side rails up X2. nurse monitoring on. Pulse ox on. NIBP on. 08:30 Inserted saline lock: 18 gauge in left antecubital area, using aseptic technique. Blood ww collected. Maintain EMS IV. Dressing intact. Good blood return noted. Site clean \T\ dry. Gauge \T\ site: 20g right hand. Patient maintains SpO2 saturation greater than 95% on room air. 08:33 EKG done, by ED staff, reviewed by Ramón Clark DO. jl7 08:37 CT Head Brain wo Cont In Process Unspecified. EDMS 08:49 Warm blanket given. Pillow given. 5 09:05 XRAY Chest (1 view) In Process Unspecified. EDMS 10:18 Ramón Clark DO is Hospitalizing Provider. ms3 10:18 Vicente Larios MD is Hospitalizing Provider. ms3 12:47 No provider procedures requiring assistance completed. Patient admitted, IV remains in ww place. Administered Medications: No medications were administered Outcome: 10:19 Decision to Hospitalize by Provider. ms3 13:27 Admitted to Med/surg Report called to Rose Marie Charge nurse who will give report to ww Dariela 13:27 Condition: stable 14:04 Patient left the ED. [email or web address] Signatures: Dispatcher [employer] EDMS Doug Clarke MD MD rn Smirch, Shelby, RN RN ss Martinez, Maria 5 Gini Pineda RN RN jl7 Jackson, Kandis kj1 Ramón Clark DO DO ms3 Angélica Cespedes RN RN ww Corrections: (The following items were deleted from the chart) 11:35 11:34 Reassessment: Patient appears in no apparent distress at this time. No changes ww from previously documented assessment. Patient and/or family updated on plan of care and expected duration. Pain level reassessed. Patient is alert, oriented x 3, equal unlabored respirations, skin warm/dry/pink. ww
--- NOTE | 2022-01-20 10:20 | EDPHYS ---
Physician Documentation [facility] Name: Dre Marina Age: 86 yrs Sex: Male : 1935 Arrival Date: 01/20/2022 Time: 08:19 Bed 3 Private MD: ED Physician Ramón Clark HPI: 01/20 08:41 This 86 yrs old Male presents to ER via EMS with complaints of Chest Pain, Altered ms3 Mental Status. 08:42 This 86 yrs old Male presents to ER via EMS with complaints of Chest Pain, Altered ms3 Mental Status. 08:42 The patient presents with confusion. Onset: The symptoms/episode began/occurred at an ms3 unknown time. Possible causes: unknown. Associated signs and symptoms: Pertinent positives:. Current symptoms: In the emergency department the patient's symptoms are unchanged from the initial presentation. 86-year-old male presents via [facility] for altered mental status and diaphoresis. EMS states they were called for chest pain and diaphoresis. On their arrival patient's heart rate was in the 30s to 45. Patient's blood pressure was in the 100s. Patient was administered IV fluids and given 0.5 mg atropine with increase in heart rate to the 50s. EMS states history was limited from the care facility. Historical: - Allergies: 08:55 Demerol; ww 08:55 PENICILLINS; ww - Home Meds: 08:25 Eliquis 2.5 mg oral tab [Active]; amlodipine 5 mg tab [Active]; finasteride 5 mg oral jl7 tab [Active]; furosemide 40 mg Oral tab [Active]; levothyroxine 100 mcg cap [Active]; Linzess 290 mcg oral cap [Active]; losartan 50 mg oral tab [Active]; metformin 500 mg Oral tab [Active]; metoprolol tartrate 50 mg Oral tab [Active]; quetiapine 50 mg oral tab [Active]; senna 8.6 mg oral cap [Active]; tamsulosin 0.4 mg oral cap [Active]; - PMHx: 08:25 Hypertensive disorder; Hypothyroidism; Diabetes mellitus; CHF; Dementia; BPH; Atrial jl7 fibrillation; - PSHx: 08:55 right nephrectomy; Neck; ww - Immunization history:: Adult Immunizations unknown. - Social history:: Smoking status: unknown Smoking status: Patient/guardian denies using tobacco, the patient reports quitting approximately 40 years ago. ROS: 08:42 Constitutional: Negative for fever, and chills. ENT: Negative for injury, pain, and ms3 discharge, Neck: Negative for injury, pain, and swelling, Abdomen/GI: Negative for abdominal pain, nausea, vomiting, diarrhea, and constipation, Back: Negative for injury and pain, Skin: Negative for injury, rash, and discoloration, Psych: Negative for depression, anxiety, suicide ideation, homicidal ideation, and hallucinations. 08:42 Cardiovascular: Negative for chest pain, and palpitations. Respiratory: Negative for shortness of breath, cough, wheezing, and pleuritic chest pain. 08:42 Cardiovascular: Exam: 08:42 Constitutional: This is a well developed, well nourished patient who is awake, alert, ms3 and in no acute distress. Head/Face: Normocephalic, atraumatic. Neck: Trachea midline, no cervical lymphadenopathy. Supple, full range of motion without nuchal rigidity, or vertebral point tenderness. No Meningismus. Chest/axilla: Normal chest wall appearance and motion. Nontender with no deformity. Respiratory: Lungs have equal breath sounds bilaterally, clear to auscultation and percussion. No rales, rhonchi or wheezes noted. No increased work of breathing, no retractions or nasal flaring. Abdomen/GI: Soft, non-tender, with normal bowel sounds. No distension or tympany. No guarding or rebound. No evidence of tenderness throughout. Skin: Warm, dry with normal turgor. Normal color with no rashes, no lesions, and no evidence of cellulitis. MS/ Extremity: Pulses equal, no cyanosis. Neurovascular intact. Full, normal range of motion. Psych: Awake, alert, with orientation to person, place and time. Behavior, mood, and affect are within normal limits. 08:42 Cardiovascular: Rate: bradycardic, Rhythm: irregularly irregular, Pulses: Pulses are 2+ in right radial artery. Heart sounds: normal, Edema: is not appreciated, JVD: is not appreciated. 08:42 ECG was reviewed by the Attending Physician. Vital Signs: 08:21 BP 118 / 83; Pulse 51; Resp 14; Temp 96.7; Pulse Ox 98% on R/A; Weight 81.65 kg; Height jl7 5 ft. 11 in. (180.34 cm); Pain 0/10; 09:48 BP 135 / 92; Pulse 50; Resp 16; Pulse Ox 97% ; ww 10:20 BP 143 / 70; Pulse 63; Resp 16; Pulse Ox 100% on R/A; ww 11:35 BP 110 / 80; Pulse 76; Resp 16; Pulse Ox 100% on R/A; ww 12:56 BP 130 / 74; Pulse 73; Resp 16; Pulse Ox 99% on R/A; ww 13:26 BP 130 / 74; Pulse 68; Resp 14; Temp 97.1; Pulse Ox 100% on R/A; ww 08:21 Body Mass Index 25.10 (81.65 kg, 180.34 cm) jl7 MDM: 08:21 Patient medically screened. rn 08:42 Differential Diagnosis: CVA, electrolyte abnormality, intracranial bleed. ms3 10:20 Data reviewed: vital signs, lab test result(s), EKG, radiologic studies. Data ms3 interpreted: library monitor: rate is 50 beats/min, rhythm is atrial fibrillation, with no ectopy, Interpretation: bradycardia, irregular. Counseling: I had a detailed discussion with the patient and/or guardian regarding: the historical points, exam findings, and any diagnostic results supporting the discharge/admit diagnosis, the need for further work-up and treatment in the hospital. Special discussion:. ED course: Discussed case with patient's daughter and she understands/ agrees with plan. All questions answered. Patient remains in stable condition.. 01/20 08:24 Order name: Basic Metabolic Panel; Complete Time: 10:01/20 08:24 Order name: CBC with Diff; Complete Time: 01/20 08:24 Order name: Troponin HS; Complete Time: 10:01/20 08:29 Order name: PT-INR; Complete Time: :01/20 08:29 Order name: Ptt, Activated; Complete Time: :01/20 09:02 Order name: BNP; Complete Time: 10:01/20 08:24 Order name: XRAY Chest (1 view); Complete Time: :01/20 08:24 Order name: CT Head Brain wo Cont; Complete Time: :01/20 10:17 Order name: COVID-19 SARS RT PCR (Document "Date of Onset" if Symptomatic) ms3 01/20 12:05 Order name: Urinalysis EDMS 01/20 12:05 Order name: Basic Metabolic Panel EDMS 01/20 12:05 Order name: Basic Metabolic Panel EDMS 01/20 12:05 Order name: Lipid Profile EDMS 01/20 12:05 Order name: Lipid Profile EDMS 01/20 08:24 Order name: EKG; Complete Time: 08:25 ms3 01/20 08:24 Order name: Cardiac monitoring; Complete Time: 08:29 ms3 01/20 08:24 Order name: EKG - Nurse/Tech; Complete Time: 08: ms3 01/20 08:24 Order name: IV Saline Lock; Complete Time: 08: ms3 01/20 08:24 Order name: Labs collected and sent; Complete Time: 08:30 ms3 01/20 08:24 Order name: O2 Per Protocol; Complete Time: 08:30 ms3 01/20 08:24 Order name: O2 Sat Monitoring; Complete Time: 08:30 ms3 01/20 08:59 Order name: Labs - recollect needed: recollect c7; Complete Time: 09:10 01/20 12:05 Order name: CONS Physician Consult EDMS 01/20 12:05 Order name: Heart Healthy EDPA EC:42 Rate is 55 beats/min. Rhythm is irregularly irregular. QRS [place] is Normal. Clinical ms3 impression: Atrial Fibrillation. Interpreted by me. Administered Medications: No medications were administered Disposition Summary: 01/20/22 10:19 Hospitalization Ordered Hospitalization Status: Inpatient Admission ms3 Provider: Vicente Larios ms3 Location: Telemetry/MedSurg (Inpatient) ms3 Condition: Stable ms3 Problem: new ms3 Symptoms: are resolved ms3 Bed/Room Type: Standard ms3 Room Assignment: 208(01/20/22 12:31) dw Diagnosis - Unspecified systolic (congestive) heart failure ms3 - Chronic kidney disease, stage 3 (moderate) ms3 - Chest pain, unspecified ms3 Forms: - Medication Reconciliation Form ms3 - SBAR form ms3 Signatures: Dispatcher [employer] EDPA Jordyn Raygoza Diana, RN RN dw Nieto, Roman, MD MD rn Leal, Jahala, RN RN jl7 Ramón Clark DO DO ms3 Angélica Cespedes RN RN ww Corrections: (The following items were deleted from the chart) 12:31 10:19 ms3 dw
[2022-01-20] MEDS ORDERED: ONDANSETRON 4 MG/2 ML VIAL IV PRN (11:58)
[2022-01-20] MEDS ORDERED: ACETAMINOPHEN 500 MG TAB PO PRN (11:58)
[2022-01-20 15:20] VITALS: BMI 23.8
[2022-01-20 17:14] LABS: Urine Appearance Clear (Clear); Urine Bilirubin Negative (Negative); Urine Blood Negative (Negative); Urine Color Yellow (Yellow); Urine Glucose Negative (Negative); Urine Protein 2+ (Negative); Urine Urobilinogen 0.2 mg/dL (0.2-1.0)
[2022-01-20 17:17] LABS: Urine Microscopic Reflex ORDER UMIC
[2022-01-20 17:19] LABS: Urine Bacteria <20 /HPF (NONE SEEN); Urine RBC NONE SEEN /HPF (NONE SEEN)
--- NOTE | 2022-01-20 17:35 | P.HP ---
Certification for Inpatient Patient admitted to: Observation With expected LOS: <2 Midnights Practitioner: I am a practitioner with admitting privileges, knowledge of patient current condition, hospital course, and medical plan of care. Services: Services provided to patient in accordance with Admission requirements found in Title 42 Section 412.3 of the Code of Federal Regulations Patient History Date of Service: 01/20/22 Reason for admission: Syncope, bradycardia. History of Present Illness: 86-year-old male patient with medical history significant for diabetes type 2, hypertension, hyperlipidemia, hypothyroidism, history of chronic atrial fibrillation on rate control with metoprolol and anticoagulation with Eliquis was evaluated in the ER for episode of feeling dizzy and tired. Family noted that patient was feeling dizzy and tired and he had significant concerns for fall so he was brought to the emergency room. In the ED he was found to be bradycardic with heart rate in the 30s and he was given atropine with improvement in heart rate into the 60s and 50s. He denies chest pain, fever, chills, rigor, nausea, vomiting episode. He was asked to be admitted for inpatient evaluation on account of his low heart beat. Telemetry strip at bedside revealed atrial fibrillation with a rapid ventricular conduction. Allergies meperidine [From Demerol] Allergy (Verified 01/20/22 12:49) UNK Penicillins Allergy (Verified 01/20/22 12:49) UNK Home Medications: Amlodipine [Norvasc*] 5 mg PO DAILY 01/20/22 Apixaban [Eliquis] 2.5 mg PO BID 01/20/22 Finasteride 5 mg PO DAILY 01/20/22 Furosemide 40 mg PO BID 01/20/22 Lactobacillus Acidophilus [Acidophilus] 100 mg PO DAILY 01/20/22 Levothyroxine [Synthroid] 100 mcg PO [id number] 01/20/22 Linaclotide [Linzess] 290 mcg PO DAILY 01/20/22 Losartan Potassium 50 mg PO BID 01/20/22 Metformin ER [Glucophage ER*] 500 mg PO DAILY 01/20/22 Metoprolol Tartrate 50 mg PO BID 01/20/22 Potassium Chloride 20 mg PO DAILY 01/20/22 Quetiapine Fumarate [Seroquel] 50 mg PO 01/20/22 Sennosides [Senna] 8.6 mg PO BID 01/20/22 Tamsulosin [Flomax] 0.4 mg PO 01/20/22 - Past Medical/Surgical History Has patient received pneumonia vaccine in the past: Yes Diabetic: No -: Alzheimers -: Dementia -: HTN -: HYpothyroid -: CHF -: AFIB -: BPH -: Kidney stone -: R nephrectomy -: neck fusion -: cardiac ablation - Social History Smoking Status: Former smoker Alcohol use: No CD- Drugs: No Caffeine use: Yes Place of Residence: [place] Review of Systems General: Malaise Eyes: Unremarkable ENT: Unremarkable Respiratory: Unremarkable Cardiovascular: Light Headedness Gastrointestinal: Unremarkable Genitourinary: Unremarkable Musculoskeletal: Unremarkable Integumentary: Unremarkable Neurological: Unremarkable Physical Examination - Vital Signs Temperature: 97.5 F Blood Pressure: 158/76 Pulse: 65 Respirations: 16 Pulse Ox (%): 97 - Physical Exam General: Alert, In no apparent distress, Oriented x3 HEENT: Atraumatic, Normocephalic Respiratory: Clear to auscultation bilaterally Cardiovascular: Normal S1 S2 Gastrointestinal: Soft and benign Neurological: Normal speech, Normal strength at 5/5 x4 extr, Cranial nerves 3-12 intact - Studies Laboratory Data (last 24 hrs) 01/20/22 09:08: Sodium 140, Potassium 4.0, BUN 30 H, Creatinine 1.56 H, Glucose 128 H 01/20/22 08:26: PT 13.9 H, INR 1.26, APTT 34.5 01/20/22 08:26: WBC 7.9, Hgb 14.4, Hct 43.9, Plt Count 264 Assessment and Plan - Plan Syncope/bradycardia: Patient has bradycardia with heart rate in the 50s and there is concern for medication side effect. He was on metoprolol for rate control. We will hold metoprolol dose. We will continue telemetry monitoring. We will have echocardiogram to assess cardiac function. Cardiology to evaluate. 2. History of chronic atrial fibrillation: Is on Eliquis for anticoagulation, will continue same. We will continue telemetry monitoring while admitted. Presently since patient has bradycardia we will hold with controlled medication of metoprolol. Cardiology to evaluate. 3. Diabetes type 2: We will monitor Blood sugar before meals and at bedtime and continue sliding scale insulin for glucose control. 4. Hypertension: We will monitor vital signs per unit protocol and continue antihypertensive medications. 5. Hyperlipidemia: We will continue statin therapy. 6. Chronic kidney disease stage III: Creatinine is slightly elevated at 1.56. We will continue to dose medication for estimated glomerular filtration and avoid exposure to nephrotoxins. Prophylaxis: Eliquis for DVT prophylaxis. Discharge Plan: Home - Advance Directives Does patient have a Living Will: Yes Does patient have a Durable POA for Healthcare: Yes
[2022-01-20] MEDS: FUROSEMIDE 20 MG/ 2ML VIAL IV SCH (18:01)
[2022-01-20] MEDS: QUETIAPINE 25 MG TAB PO SCH (20:43)
[2022-01-21 05:40] LABS: Magnesium 2.2 mg/dL (1.8-2.4); Phosphorus 2.5 mg/dL (2.5-4.9); Potassium 3.5 mmol/L (3.5-5.1)
--- NOTE | 2022-01-21 07:56 | EKG ---
Test Date: 2022-01-20 Test Time: 08:19:52 Under Presser: MEASUREMENT RESULTS: Intervals: Rate: 55 [place]: QRSD: 96 QT: 470 QTc: 449 [place]: P: KS: QRS: 68 T: 51 INTERPRETIVE STATEMENTS: Atrial fibrillation with slow ventricular response Abnormal ECG No previous ECG available for comparison Electronically Signed On 01-21-22 07:52:44 CDT by Horace Jaeger
--- NOTE | 2022-01-21 07:58 | P.PN ---
Subjective Date of Service: 01/22/22 Chief Complaint: Syncope, bradycardia. Subjective: No new changes, Improving Physical Examination - Vital Signs Temperature: 98.3 F Blood Pressure: 108/62 Pulse: 79 Respirations: 16 Pulse Ox (%): 97 - Physical Exam General: Alert, Oriented x3 HEENT: Atraumatic, Normocephalic Neck: Supple Respiratory: Normal air movement Cardiovascular: Regular rate/rhythm Gastrointestinal: Soft and benign Musculoskeletal: No erythema Neurological: Normal speech, Normal strength at 5/5 x4 extr - Studies Laboratory Data (last 24 hrs) 01/20/22 09:08: Sodium 140, Potassium 4.0, BUN 30 H, Creatinine 1.56 H, Glucose 128 H 01/20/22 08:26: PT 13.9 H, INR 1.26, APTT 34.5 01/20/22 08:26: WBC 7.9, Hgb 14.4, Hct 43.9, Plt Count 264 Assessment And Plan - Plan Syncope/bradycardia: There is improvement in pulse rate however there is still concern. Echocardiogram pending. 2. History of chronic atrial fibrillation: We will continue Eliquis for anticoagulation. 3. Diabetes type 2: We will monitor Blood sugar before meals and at bedtime and continue sliding scale insulin for glucose control. 4. Hypertension: We will monitor vital signs per unit protocol and continue antihypertensive medications. 5. Hyperlipidemia: We will continue statin therapy. 6. Chronic kidney disease stage III: Creatinine is slightly elevated at 1.56. We will continue to dose medication for estimated glomerular filtration and avoid exposure to nephrotoxins. Prophylaxis: Eliquis for DVT prophylaxis. Discharge Plan: [place]
--- NOTE | 2022-01-21 08:10 | ECHO ---
HEIGHT: 5 ft 11 in WEIGHT: 165 lb 12.8 oz DATE OF STUDY: 01/20/[address]: Horace Jaeger MD 2-DIMENSIONAL: YES M.MODE: YES DOPPLER: YES COLOR FLOW: YES TDS: NO PORTABLE: NO DEFINITY: NO BUBBLE STUDY: NO DIAGNOSIS: ATRIAL FIBRILLATION CARDIAC HISTORY: CATHERIZATION: SURGERY: PROSTHETIC VALVE: PACEMAKER: MEASUREMENTS (cm) DIASTOLIC (NORMALS) SYSTOLIC (NORMALS) IVSd 0.9 (0.6-1.2) LA Diam 2.8 (1.9-4.0) LVEF 58% LVIDd 3.9 (3.5-5.7) LVIDs 2.7 (2.0-3.5) %FS 30% LVPWd 1.0 (0.6-1.2) Ao Diam 3.3 (2.0-3.7) 2 DIMENSIONAL ASSESSMENT: RIGHT ATRIUM: NORMAL LEFT ATRIUM: NORMAL RIGHT VENTRICLE: NORMAL LEFT VENTRICLE: NORMAL TRICUSPID VALVE: NORMAL MITRAL VALVE: NORMAL PULMONIC VALVE: NORMAL AORTIC VALVE: SCLEROSIS PERICARDIAL EFFUSION: NONE AORTIC ROOT: NORMAL LEFT VENTRICULAR WALL MOTION: NORMAL. DOPPLER/COLOR FLOW: MILD PULMONARY HYPERTENSION. COMMENTS: MILD PULMONARY HYPERTENSION. AORTIC SCLEROSIS - NO STENOSIS. NORMAL LEFT VENTRICULAR SIZE AND FUNCTION. TECHNOLOGIST: BRUNO BERG
[2022-01-21] MEDS: FUROSEMIDE 20 MG/ 2ML VIAL IV SCH ×2 (08:54→18:00)
[2022-01-21] MEDS: ENOXAPARIN 40 MG/0.4 ML SQ SCH (08:54)
[2022-01-21] MEDS ORDERED: POTASSIUM CL SA 10 MEQ TAB PO ONE (09:00)
[2022-01-21] MEDS: QUETIAPINE 25 MG TAB PO SCH (20:00)
[2022-01-21] MEDS: ENSURE ENLIVE 237 ML CAN PO SCH (20:01)
[2022-01-22] MEDS: FUROSEMIDE 20 MG/ 2ML VIAL IV SCH (09:36)
[2022-01-22] MEDS: ENOXAPARIN 40 MG/0.4 ML SQ SCH (09:36)
[2022-01-22] MEDS: ENSURE ENLIVE 237 ML CAN PO SCH (09:36)
--- NOTE | 2022-01-22 10:11 | P.DS ---
Admission Date: 01/21/22 Discharge Date: 01/22/22 Reason for Admission: Syncope, bradycardia. Consultations: Cardiology Procedures: Echocardiogram. Brief History of Present Illness: 86-year-old male patient with medical history significant for diabetes type 2, hypertension, hyperlipidemia, hypothyroidism, history of chronic atrial fibrillation on rate control with metoprolol and anticoagulation with Eliquis was evaluated in the ER for episode of feeling dizzy and tired. Family noted that patient was feeling dizzy and tired and he had significant concerns for fall so he was brought to the emergency room. In the ED he was found to be bradycardic with heart rate in the 30s and he was given atropine with improvement in heart rate into the 60s and 50s. He denies chest pain, fever, chills, rigor, nausea, vomiting episode. He was asked to be admitted for inpatient evaluation on account of his low heart beat. Telemetry strip at bedside revealed atrial fibrillation with a rapid ventricular conduction. Hospital Course: While admitted he remains asymptomatic. His pulse rate however was noted to be ranging between 50 and 70 recent concerns. Cardiology evaluated patient and recommended to decrease with of dose of rate control medication of metoprolol. We will continue present care with Eliquis for anticoagulation and other home medication. He will follow up with cardiology and primary care doctor as scheduled on outpatient. He remains chest pain and shortness of breath free. Vital Signs/Physical Exam: Temp Pulse Resp BP Pulse Ox 98.3 F 79 16 108/62 97 01/22/22 10:06 01/22/22 10:06 01/22/22 10:06 01/22/22 10:06 01/22/22 10:06 General: Alert, Oriented x3 HEENT: Atraumatic, Normocephalic Neck: Supple Respiratory: Clear to auscultation bilaterally Cardiovascular: No edema Laboratory Data at Discharge: WBC 7.9 K/uL (4.3-10.9) 01/20/22 08:26 Hgb 14.4 g/dL (13.6-17.9) 01/20/22 08:26 Hct 43.9 % (39.6-49.0) 01/20/22 08:26 Plt Count 264 K/uL (152-406) 01/20/22 08:26 PT 13.9 SECONDS (9.5-12.5) H 01/20/22 08:26 INR 1.26 01/20/22 08:26 APTT 34.5 SECONDS (24.3-36.9) 01/20/22 08:26 Sodium 141 mmol/L (136-145) 01/21/22 05:12 Potassium 3.5 mmol/L (3.5-5.1) 01/21/22 05:12 BUN 24 mg/dL (7-18) H 01/21/22 05:12 Creatinine 1.25 mg/dL (0.55-1.3) 01/21/22 05:12 Glucose 118 mg/dL (74-106) H 01/21/22 05:12 Phosphorus 2.5 mg/dL (2.5-4.9) 01/21/22 05:12 Magnesium 2.2 mg/dL (1.8-2.4) 01/21/22 05:12 Triglycerides 145 mg/dL (<150) 01/21/22 05:12 Cholesterol 178 mg/dL (<200) 01/21/22 05:12 HDL Cholesterol 44 mg/dL (40-60) 01/21/22 05:12 Cholesterol/HDL Ratio 4.05 01/21/22 05:12 Home Medications: Amlodipine [Norvasc*] 5 mg PO DAILY 01/20/22 Apixaban [Eliquis] 2.5 mg PO BID 01/20/22 Finasteride 5 mg PO DAILY 01/20/22 Furosemide 40 mg PO BID 01/20/22 Lactobacillus Acidophilus [Acidophilus] 100 mg PO DAILY 01/20/22 Levothyroxine [Synthroid] 100 mcg PO [id number] 01/20/22 Linaclotide [Linzess] 290 mcg PO DAILY 01/20/22 Losartan Potassium 50 mg PO BID 01/20/22 Metformin ER [Glucophage ER*] 500 mg PO DAILY 01/20/22 Metoprolol Tartrate 50 mg PO BID 01/20/22 Potassium Chloride 20 mg PO DAILY 01/20/22 Quetiapine Fumarate [Seroquel] 50 mg PO 01/20/22 Sennosides [Senna] 8.6 mg PO BID 01/20/22 Tamsulosin [Flomax] 0.4 mg PO 01/20/22 Diet: AHA Activity: Ad ragini Followup: NONE,NONE [Primary Care Provider] -
[2022-01-22 12:16] VITALS: BP 135/80; TEMP 98
[2022-01-22 13:41] VITALS: O2SAT 96
--- NOTE | 2022-01-22 14:11 | CON ---
Date of Consultation: 01/20/2022 Reason For Consultation: Bradycardia. History Of Present Illness: Mr. Marina is an 86-year-old, who lives in a group home, was brought because of bradycardia, atypical chest pain, and altered mental status. He has a history of hyperten joe, benign prostatic hypertrophy, paroxysmal atrial fibrillation, diabetes, and hypothyroidism and chronic diastolic congestive heart failure. He also has a history of dementia. His chest pain was v slade atypical, it was sharp, stabbing, worse with breathing. No nausea, vomiting, diaphoresis, PND, o rthopnea, pedal edema, palpitations, or syncope. He was noted to have bradycardia. His mental statu s change is chronic. He was brought to the emergency room for evaluation. Allergies: HE IS ALLERGIC TO PENICILLIN AND DEMEROL. Review of Systems: Negative. Social History: Negative. Family History: Negative. Past Medical History: As stated above. Medications: At home include Eliquis, Norvasc, finasteride, metformin, Lasix, Synthroid, and metopro lol. Physical Examination: Vital Signs: Stable. He was afebrile. Heart rate was 54. HEENT: Negative. Neck: Supple without any bruit, lymphadenopathy, JVD, or thyromegaly. Chest: Clear to auscultation and percussion. Cardiac: Reveals a regular rhythm and rate. No murmurs, gallops, or rubs. Abdomen: Benign. Extremities: Revealed no clubbing, cyanosis, or edema. Diagnostic Data: Normal. Impression And Plan: 1.Bradycardia secondary to metoprolol. No hemodynamic compromise and no hypotension. We need to ch adele an echocardiogram and decrease his metoprolol by half. 2.History of paroxysmal atrial fibrillation, on Eliquis. He is in sinus rhythm. Continue that. 3.Chronic diastolic congestive heart failure, on Lasix and metoprolol. We will manage with that reg jenaro. 4.Hypertension, well controlled on Norvasc and metoprolol. 5.Benign prostatic hypertrophy. 6.Diabetes on metformin, well controlled. 7.Chronic diastolic congestive heart failure, on Lasix and metoprolol, well controlled. 8.Dementia that is chronic. Again, I will do an echocardiogram. Decrease his metoprolol by half. He can go home whenever it is okay with Dr. Larios. NB/MODL Voice ID: [id number] Report ID: [id number]
--- NOTE | 2022-01-22 14:17 | PN ---
Date of Progress Note: 01/21/2022 Mr. Marina is an 86-year-old male who came in with altered mental status and bradycardia. He was ad mitted to Dr. Larios. Echocardiogram was unremarkable. He had bradycardia in the 50s. His metopr olol was decreased in half. He is completely asymptomatic from that standpoint. I would let him go home whenever it is okay with Dr. Larios. He should go home on half the dose of the metoprolol. W snow will see him in the office as an outpatient otherwise. FLOR/CONOR Voice ID: [id number] Report ID: [id number]
== END 2022-01-22 13:20 | disposition home or self-care (01) | DRG 309 ==
LOC: ER 08:19 → ERHOLD 12:00 → 2ND 13:45 → OBSVTOIN 01-21 18:03
PROVIDERS: ADMIT Internal Medicine Nephrology; ATTEND Internal Medicine Nephrology
DX: R00.1 Bradycardia, unspecified (principal); I13.0 Hypertensive heart and chronic kidney disease with heart failure and stage 1 through stage 4 chronic kidney disease, or unspecified chronic kidney disease; I50.32 Chronic diastolic (congestive) heart failure; I48.20 Chronic atrial fibrillation, unspecified; G30.9 Alzheimer's disease, unspecified; F02.80 Dementia in other diseases classified elsewhere, unspecified severity, without behavioral disturbance, psychotic disturbance, mood disturbance, and anxiety; E03.9 Hypothyroidism, unspecified; E78.5 Hyperlipidemia, unspecified; N18.30 Chronic kidney disease, stage 3 unspecified; E11.22 Type 2 diabetes mellitus with diabetic chronic kidney disease; T44.7X5A Adverse effect of beta-adrenoreceptor antagonists, initial encounter; Y92.009 Unspecified place in unspecified non-institutional (private) residence as the place of occurrence of the external cause; N40.0 Benign prostatic hyperplasia without lower urinary tract symptoms; Z79.01 Long term (current) use of anticoagulants; Z90.5 Acquired absence of kidney; Z87.891 Personal history of nicotine dependence; Z88.0 Allergy status to penicillin; Z20.822 Contact with and (suspected) exposure to COVID-19
CPT/HCPCS: 36415; 70450; 71045; 80048; 80061; 81003; 81015; 83735; 83880; 84100; 84484; 85025; 85610; 85730; 93005; 93306; 99285; G0378; J1650; J1940; U0003

== ENCOUNTER 2022-11-28 13:50 | Emergency (ER) | payer OTHER, BC ==
--- OUTSIDE RECORDS SUMMARY | 2022-11-28 14:37 | XMS REPORT | Continuity of Care Document ---
:1935 Author Organization [facility] t Address [address] [place] [address] Care Team Providers Name Role Phone BOWEN DONAHUE Primary Care Physician Unavailable [id number] Attending Clinician Unavailable NADIA RDZ NATASHA Attending Clinician Unavailable ELLIOT BUTT Attending Clinician Unavailable JIM COOK Attending Clinician Unavailable TOÑO SENA Attending Clinician Unavailable TOÑO SENA Attending Clinician Unavailable Nadia Rdz Attending Clinician Unavailable Shayy Henriquez Attending Clinician Unavailable Magdalena Davis RN Attending Clinician Unavailable Humberto Reyna MD Attending Clinician Sarah Hamlin MD Attending Clinician JeremíasNess Taryn Attending Clinician Unavailable Doctor Unassigned, Rosine Attending Clinician Unavailable Taisha Florence MD Carrillo Attending Clinician TAISHA FLORENCE Attending Clinician Unavailable Provider, [facility] Attending Clinician Unavailable Jasen PINKING MACHINE OPERATOR, Jose De Jesus Attending Clinician JOSE DE JESUS GOMES Attending Clinician Unavailable CHRISYAHIR Attending Clinician Unavailable Sher TENORIO, Vicky Attending Clinician Vira Henriquez DO Attending Clinician Mehrdad PINKING MACHINE OPERATOR, Celi Attending Clinician Margarita Case MD Attending Clinician MARGARITA CASE Attending Clinician Unavailable Gio Meredith MD Attending Clinician GIO MEREDITH Attending Clinician Unavailable GIO MEREDITH Attending Clinician Unavailable Elliot Butt MD Attending Clinician Only, [place] Test Attending Clinician Unavailable Bebeto Montero DO Attending Clinician Only, Adc Test Attending Clinician Unavailable Jim Cook MD Attending Clinician Rj MENDES, Jasmyne Attending Clinician Unavailable Elio Richardson MD Attending Clinician ELIO RICHARDSON Attending Clinician Unavailable Dany Bowers MD Attending Clinician Pob, [facility] Lab Main Attending Clinician Unavailable Андрей Weiss MD Attending Clinician АНДРЕЙ WEISS Attending Clinician Unavailable RADIOLOGY Attending Clinician Unavailable Radiology Attending Clinician Unavailable Marli Leiva MD Attending Clinician [phone] Unknown, Attending Attending Clinician Unavailable Leif Winn MD Attending Clinician [id number] Admitting Clinician Unavailable NADIA RDZ NATASHA Admitting Clinician Unavailable ELLIOT BUTT Admitting Clinician Unavailable JIM COOK Admitting Clinician Unavailable NADIA RDZ Admitting Clinician Unavailable Shayy Henriquez Admitting Clinician Unavailable Boubacar TENORIO, Sarah Admitting Clinician Margarita Case MD Admitting Clinician MARGARITA CASE Admitting Clinician Unavailable Elliot Butt MD Admitting Clinician Bety TENORIO, Jim Chang Admitting Clinician NESS VERONICA Admitting Clinician Unavailable Payers Payer Name Policy Type Policy Number Effective Date Expiration Date S willard MCR MCR [id number] BCTX BCTI [id number] BCBS FED SELECT [id number] 2000 00:00:00 MEDICARE PART A [id number] 2000 00:00:00 Problems Condition Condition Condition Status Onset Resolution Last Treating Co mments Source Name Details Category Date Date Treatment Clinician Date Pneumonia Pneumonia Disease Active Uni vers 6-06 ity of 00:00: [place] [facility] Paroxysmal Paroxysmal Disease Active U nivers atrial atrial 2-14 ity of fibrillati fibr[place] with on with 00 Medical RVR RVR Branch Essential Essential Disease Active Uni vers hypertensi hypertensi 2-14 it y of on on 00:00: [place] 00 Medical Branch 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 2-14 ity of congestive congestive 00:00[place] heart heart 00 Medical failure failure Branch UTI UTI Disease Active Univers (urinary (urinary 2-14 ity of tract tract 00:00: [place] infection) infection) 00 Mn dical Branch 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 Added automatic ally from request for surgery [id number] Bilateral Bilateral Disease Active Overview: Univers occipital occipital 6-04 Formattin i ty of neuralgia neuralgia 00:00: g of this [place] 00 note Medical might be Branch different from the original. Added automatic ally from request for surgery [id number] Cervical Cervical Disease Active Overview: Un brian spondylosi spondylosi 6-04 Formattin ity of s without s without 00:00: g of this [place] myelopathy myelopathy 00 note Me dical might be Branch different from the original. Added automatic ally from request for surgery [id number] Myalgia Myalgia Disease Active Overview: Univ ers 6- Formattin ity of 00:00: g of this [place] 00 note Medical might be Branch different from the original. Added automatic ally from request for surgery [id number] Left Left Disease Active Univers shoulder shoulder 5-11 ity of pain pain 00:00: [place] 00 Medical Branch Allergies, Adverse Reactions, Alerts Allergy Allergy Status Severity Reaction(s) Onset Inactive Treating Comm ents Source Name Type Date Date Clinician [place] DA Active SV 2020- [facility] [place] [facility] meperidi DA Active SV 2020-0 [facility] ne 03-21 [place] 00:[facility]: [facility] DA Active SV RASH 2020- [facility] 03-21 [place] 00:[facility]: [facility] meperidi DA Active SV HALLUCINATIO 2020- [facility] ne NS 03-21 [place] 00:00: [facility] DA Active U UNKNOWN [facility] 01-[facility]: [address] meperidi DA Active U UNKNOWN [facility] ne 01-29 00:00: [address] Penicill DA Active U 2021-0 [facility] ins [facility]- [place] 00:00: [place] 00 [facility] meperidi DA Active U [facility] ne 4 [facility] 00:00: [address] Meperidi Propensi Active Hallucinatio 2015-0 Univers ne Hcl ty to ns 5-11 ity of adverse 00:00: [place] reaction 00 Medical s Branch Penicill Propensi Active Rash 2016-0 Univer s ins ty to 5-11 ity of adverse 00:00: [place] reaction 00 Medical s Branch MEPERIDI DRUG Active Hallucinates 2016-0 Un brian NE HCL INGREDI 5-11 ity of 00:00: [place] 00 Medical Branch PENICILL Drug Active Rash 2016-0 Univers INS Class 5-11 ity of 00:00: [place] [id number] Medical Branch Social History Social Habit Start Date Stop Date Quantity Comments Source Exposure to Unable to assess Univers ity of SARS-CoV-2 [place] [facility] (event) Branch Alcohol intake 2021-03-30 2021-03-30 Current drinker of Un iversity of 00:00:00 00:00:00 alcohol (finding) [facility] edical Branch History SDOH 2021-03-30 2021-03-30 12 University o f Education 00:00:00 00:00:00 [facility] Tobacco use and 2021-03-30 2021-03-30 Never used Universit y of exposure 00:00:00 00:00:00 [place] [facility] History SDOH 2020-06-14 2020-06-14 99 University o f Alcohol Frequency 00:00:00 00:00:00 [facility] edical Branch History SDMT 2020-06-14 2020-06-14 1 University o f Alcohol Std 00:00:00 00:00:00 [place] [facility] Drinks Branch History SDMT 2020-06-14 2020-06-14 4 University o f Alcohol Binge 00:00:00 00:00:00 [place] [facility] Tobacco Comment 2020-06-14 2020-06-14 quit 40 years ago Un iversity of 00:00:00 00:00:00 [facility] Alcohol Comment 2018-08-08 2018-08-08 occaisonally Univers ity of 00:00:00 00:00:00 [facility] Sex Ass[birth year] At [birth year] Universit y of 00:00:00 00:00:00 [facility] Smoking Status Start Date Stop Date Source Former smoker 2021-03-30 00:00:00 2021-03-30 00:00:00 [facility] Never smoker [facility] Medications Ordered Filled Start Stop Current Ordering Indication Dosage Frequency Signature Comments Components Source Medication Medication Date Date Medication? Clinician (SIG) Name Name aspirin Yes 81mg Take 81 mg Univ ers (KWAME 6-13 by mouth ity of CHEWABLE 18:50: daily. [place] ASPIRIN) 81 45 Medical mg chewable Branch tablet magnesium Yes 1{capsu Take 1 Uni vers oxide 400 6-13 le} capsule by ity of mg capsule 18:50: mouth [place] 45 daily. Medical Branch tamsulosin Yes tamsulosin [...] by ity of vitamin C, 18:50: mouth. [place] (VITAMIN C) 45 Medical 500 mg Branch [...] 45 Medical Branch fluticasone Yes Use in Univ ers propionate 6-13 each ity of 50 18:50: nostril [place] mcg/actuati 45 daily. Medica l on nasal Branch spray aspirin Yes 81mg Take 81 mg Univ ers (KWAME 6-13 by mouth ity of CHEWABLE 18:50: daily. [place] ASPIRIN) 81 45 Medical mg chewable Branch tablet magnesium Yes 1{capsu Take 1 Uni vers oxide 400 6-13 le} capsule by ity of mg capsule 18:50: mouth [place] 45 daily. Medical Branch tamsulosin Yes tamsulosin [...] by ity of vitamin C, 18:50: mouth. [place] (VITAMIN C) 45 Medical 500 mg Branch Cranberry Yes 1{capsu Take 1 Uni vers 400 mg Cap 6-13 le} capsule by ity of 18:50: mouth 3 [place] 45 (three) Medical times Branch daily. loratadine Yes 10mg Take 10 mg U nivers (CLARITIN) 6-13 by mouth ity o f 10 mg 18:50: daily. [place] tablet 45 Medical Branch montelukast Yes 10mg Take 10 mg Univers 10 mg 6-13 by mouth. ity of tablet 18:50: [place] 45 [facility] fluticasone Yes Use in [facility] ers propionate 6-13 each ity of 50 18:50: nostril [place] mcg/actuati 45 daily. Medica l on nasal Branch spray KCL No 40meq 40 mEq, Univers (KLOR-CON 04-06 06-13 Oral, ity of M20) tablet 17:00: 17:25 ONCE, 1 [place] 40 mEq 00 :00 dose, [place] [facility] 04/06/21 at Branch 1200, Routine metoprolol Yes 75mg 75 mg, Unive rs tartrate 6-13 Oral, BID, ity o f (LOPRESSOR) 15:30: First dose [place] tablet 75 00 (after Medical mg last Branch modificati on) on [place] 04/06/21 at 1030, Until Discontinu ed, Routine cyclobenzap Yes [id number] 10mg Take 1 Univers rine 10 mg 6-13 tablet by ity of tablet 00:00: mouth 3 [place] 00 (three) Medical times [place] daily as needed for Muscle Spasms. cyclobenzap Yes [id number] 10mg Take 1 Univers rine 10 mg -13 tablet by ity of tablet 00:00: mouth 3 [place] 00 (three) Medical times Branch daily as needed for Muscle Spasms. amoxicillin 2020- No 1{tbl} 1 tablet, Univers -clavulanat 04-05 Oral, ity of e 01:00: 00:59 Q12H, 10 [place] (AUGMENTIN) 00 :00 doses, Medica l 875-125 mg First dose Bra nch per tablet on Wed 1 tablet 04/04/21 at 2000, Last dose on Wed04/09/21 at 0800, Routine
Reason for Anti-Infec tive: [...] Medical tablet morning. Branch furosemide 2020- No [id number] 40mg Take 1 Univers 40 mg 04-05 00 tablet by ity of tablet 00:00: 04:59 mouth [place] 00 :00 daily for Medical 30 days. Branch metFORMIN 2020- No [id number] 500mg Take 1 Univers 500 mg 04-05 tablet by ity of tablet 00:00: 04:59 mouth [place] 00 :00 daily Medical before a Branch meal for 30 days. furosemide 2020- No [id number] 40mg Take 1 Univers 40 mg 04-05 00 tablet by ity of tablet 00:00: 04:59 mouth [place] 00 :00 daily for Medical 30 days. Branch metFORMIN 2020- No [id number] 500mg Take 1 Univers 500 mg 04-05 tablet by ity of tablet 00:00: 04:59 mouth [place] 00 :00 daily Medical before a Branch meal for 30 days. levoFLOXaci 2020- No [id number] 750mg Take 1 Univers n 750 mg 04-05 tablet by ity o f tablet 00:00: 04:59 mouth [place] 00 :00 every 24 Medical (twenty-fo Branch ur) hours for 5 days. levoFLOXaci 2020- No [id number] 750mg Take 1 Univers n 750 mg 04-05 tablet by ity o f tablet 00:00: 04:59 mouth [place] 00 :00 every 24 Medical (twenty-fo Branch ur) hours for 5 days. L.acid/L.ca 2020- No Take by Un brian sei/B.bif/B 04-04 mouth. ity o f .joanna/FOS [...] bedtime. Medical tablet Branch metoprolol 2020- No [id number] 75mg Take 75 mg Univers tartrate 75 04-04 00 by mouth 2 i ty of mg Tab 00:00: 04:59 (two) [place] 00 :00 times Medical daily for Branch 30 days. metoprolol 2020- No [id number] 75mg Take 75 mg Univers tartrate 75 04-0412 00 by mouth 2 i ty of mg Tab 00:00: 04:59 (two) [place] 00 :00 times Medical daily for Branch 30 days. amoxicillin 2020- No [id number] 1{tbl} Take 1 Univers -clavulanat 04-04 tablet by it y of e 875-125 00:00: 04:59 mouth [place] mg per 00 :00 every 12 Medical tablet (twelve) Branch hours for 5 days. amoxicillin 2020- No [id number] 1{tbl} Take 1 Univers -clavulanat 04-04 tablet by it y of e 875-125 00:00: 04:59 mouth [place] mg per 00 :00 every 12 Medical tablet (twelve) Branch hours for 5 days. sodium Yes 1{spray 1 [place], Univ ers chloride 6-10 } Nasal, ity of (OCEAN MIST 21:15: QID, First [place] NASAL) 0.65 00 dose on Medic al % nasal April Branch spray 1 04/03/21 at [place] 1615, Until Discontinu ed, Routine oxymetazoli Yes 1{spray 1 [place], Univers ne 6-10 } Nasal, ity of (OXYMETAZOL 21:10: BIDPRN, [place] as INE HCL) 01 Starting Medical 0.05 % April Branch nasal spray 04/03/21 at 1 [place] 1610, Until Discontinu ed, Routine, Nosebleed levoFLOXaci [...] Yes 40mg 40 mg, Unive rs (LASIX) 04-03 Oral, ity of tablet 40 14:00: DAILY, [place] mg 00 First dose Medical on April Branch 04/03/21 at 0900, Until Discontinu ed, Routine KCL 2020- No 40meq 40 mEq, Univers (KLOR-CON 04-03 Oral, ity of M20) tablet 13:45: 14:12 ONCE, 1 [place] 40 mEq 00 :00 dose, [facility] Medical 04/03/21 at Branch 0845, Routine Sliding Yes Subcutaneo Univ ers Scale 6-10 us, TID ity of Insulin - 02:00: MEALS+HS, [place] Lispro 00 First dose Medical (HumaLOG) + on Wed Branch Fsbg 04/02/21 at [place] 2100, Until Discontinu [...] 500 mg 00 First dose Medical on Wed Branch 04/02/21 at 0930, Until Discontinu ed, Routine losartan Yes 50mg 50 mg, Univers (COZAAR) 04-02 Oral, BID, ity o f tablet 50 14:15: First dose [place] mg 00 on Wed04/02/21 at Branch 0915, Until Discontinu ed, Routine sodium 2020- No 650mg 650 mg, Univer s bicarbonate 04-02 Oral, QID, i ty of (ANTACID 14:15: 12:19 First dose [place] (SODIUM 00 :48 on Wed Medical BICARBONATE 04/02/21 at [facility] )) tablet 0915, 650 mg Until Discontinu ed, Routine metoprolol No 75mg 75 mg, Univ ers tartrate 04-02 Oral, BID, ity of (LOPRESSOR) 14:00: 14:35 First dose [place] tablet 75 00 :43 (after Medical mg last Branch modificati on) on Wed04/02/21 at 0900, Until Discontinu ed, Routine metoprolol No 50mg 50 mg, Univ ers tartrate 04-02 Oral, BID, ity of (LOPRESSOR) 01:00: 13:50 First dose [place] tablet 50 00 :48 (after Medical mg last Branch modificati on) on Wed04/01/21 at 2000, Until Discontinu ed, Routine sodium No 50meq IV Univers bicarbonate 04-01 Infusion, it y of 50 mEq in 19:30: 14:13 at 75 [place] D5W 0.45% 00 :11 mL/hr, 50 Medic al NaCl mEq, Branch (1/2NS) CONTINUOUS 1,000 mL IV , Starting infusion Wed04/01/21 at 1430, Until Wed04/02/21 at 0913, Routine metoprolol No 25mg 25 mg, Univ ers tartrate 04-01 Oral, ity of (LOPRESSOR) 19:15: 21:03 ONCE, 1 [place] tablet 25 00 :00 dose, Wed Medic al mg 04/01/21 at Branch 1415, Routine furosemide No 20mg 20 mg, Univ ers (LASIX) 04-01 Slow IV ity of injection 17:45: 23:00 Push, [place] 20 mg 00 :50 DAILY, Medical First dose Branch on Wed04/01/21 at 1245, Until Discontinu ed, Routine levoFLOXaci 2020- No 500mg 500 mg, IV Univers n in D5W 04-0110 Piggyback, ity of (LEVAQUIN) 14:00: 13:11 Q24H ABX, [place] 500 mg/100 00 :27 First dose Med ical mL on Wed Branch Piggyback 04/01/21 at 500 mg 0900, Until Discontinu ed, 100 mL
R alejandra for Anti-Infec tive: Empiric Therapy for Suspected Infection< br>Empiric Therapy Site: Respirator y
Durat ion of therapy: 72 hours sodium 2020- No 50meq IV Univers bicarbonate 03-31 Infusion, it y of 50 mEq in 15:30: 15:29 at 75 [place] D5W 0.45% 00 :00 mL/hr, 50 Medic al NaCl mEq, Branch (1/2NS) CONTINUOUS 1,000 mL IV , Starting infusion Wed03/31/21 at 1030, Until Wed04/01/21 at 1029, Routine tamsulosin Yes .4mg 0.4 mg, Univ ers (FLOMAX) 03-31 Oral, ity of capsule 0.4 14:00: DAILY, [place] mg 00 First dose Medical on Wed03/31/21 at 0900, Until Discontinu ed, Routine montelukast Yes 10mg 10 mg, Univ ers (SINGULAIR) 03-31 Oral, ity of tablet 10 14:00: DAILY, [place] mg 00 First dose Medical on Wed03/31/21 at 0900, Until Discontinu ed, Routine finasteride Yes 5mg 5 mg, Unive rs (PROSCAR) 03-31 Oral, ity of tablet 5 mg 14:00: DAILY, [place] 00 First dose Medical on Wed03/31/21 at 0900, Until Discontinu ed, Routine aspirin Yes 81mg 81 mg, Univers chewable 03-31 Oral, ity of tablet 81 14:00: DAILY, [place] mg 00 First dose Medical on 03/31/21 at 0900, Until Discontinu ed, Routine levothyroxi Yes 100ug 100 mcg, U nivers ne - Oral, ity of (SYNTHROID) 11:00: QAM-0600, [place] tablet 100 00 First dose Med ical mcg on Wed [place] 03/31/21 at 0600, Until Discontinu ed, Routine metoprolol 2020- No 5mg 5 mg, Unive rs (LOPRESSOR) 03-31 06-07 Intravenou i ty of injection 5 05:00: 17:53 s, Q6H, [place] mg 00 :46 First dose Medical on Wed [place] 03/31/21 at 0000, Until Discontinu ed, Routine QUEtiapine Yes 50mg 50 mg, Unive rs (SEROQUEL) 03-31 Oral, QHS, ity of tablet 50 02:00: First dose [place] mg 00 on [facility] 03/30/21 at Branch 2100, Until Discontinu ed, Routine niacin TR 0 Yes 1000mg 1,000 mg, U nivers SUSTAINED 03-31 Oral, QHS, ity of RELEASE 02:00: First dose [place] (NIACIN TR) 00 on [place] Medica l tablet 03/30/21 at Branch 1,000 mg 2100, Until Discontinu ed, Routine
service member approving Non-formul radha medication : [facility]
Reason for non-formul radha use: PATIENT CURRENTLY TAKING NONFORMULA RY PRODUCT sennosides Yes 8.6mg 8.6 mg, Uni vers (SENOKOT) - Oral, BID, ity of tablet 8.6 01:00: First dose [place] mg 00 on [facility] 03/30/21 at Branch 1999, Until Discontinu ed, Routine hydrALAZINE 0 Yes 100mg 100 mg, Un brina (APRESOLINE -07 Oral, BID, it y of ) tablet 01:00: First dose [place] 100 mg 00 on [facility] 03/30/21 at Branch 1999, Until Discontinu ed, Routine docusate 0 Yes 100mg 100 mg, Unive rs (COLACE) -07 Oral, BID, ity o f capsule 100 01:00: First dose [place] mg 00 on [facility] 03/30/21 at [place] 1999, Until Discontinu ed, Routine apixaban Yes 1358 5mg 5 mg, Univers (ELIQUIS) 03-31 Oral, BID, ity of tablet 5 mg 01:00: First dose 00 on [facility] 03/30/21 at [place] 1999, Until Discontinu ed, Routine amLODIPine Yes 5mg 5 mg, Univer s (NORVASC) 03-31 Oral, BID, ity of tablet 5 mg 01:00: First dose 00 on [facility] 03/30/21 at [place] 1999, Until Discontinu ed, Routine metoprolol 2020- No 25mg 25 mg, Univ ers tartrate 03-31 Oral, BID, ity of (LOPRESSOR) 01:00: 18:09 First dose [place] tablet 25 00 :07 on [facility] mg 03/30/21 at [place] 1999, Until Discontinu ed, Routine metoprolol No 5mg 5 mg, Unive rs (LOPRESSOR) 03-31 Intravenou i ty of injection 5 01:00: 00:29 s, ONCE [place] mg 00 :00 NOW, 1 Medical dose, [facility] 03/30/21 at 2000, Routine rivastigmin Yes 4.5mg 4.5 mg, Un brian e tartrate 03-30 Oral, ity of (EXELON) 22:00: QAM+PM, [place] capsule 4.5 00 First dose Me dical mg on [facility] 03/30/21 at 1700, Until Discontinu ed
Facu lty member approving Restricted medication : MEGADC metoprolol 2020- No 5mg 5 mg, Unive rs (LOPRESSOR) 03-30 Intravenou i ty of injection 5 17:30: 16:41 s, ONCE [place] mg 00 :00 NOW, 1 Medical dose, [facility] 03/30/21 at 1230, Routine metroNIDAZO 2020- No 500mg 500 mg, IV Univers LE in NaCl 03-30 Infusion, ity of (iso-os) 17:00: 17:35 Q8H ABX, [place] (FLAGYL 00 :48 First dose Medica l I.V.) RTU on [place] Branch IV infusion 03/30/21 at 500 mg 1200, Until Discontinu ed, 100 mL
Reas on for Anti-Infec tive: Documented Infection< br>Documen chava Infection Site: Abdominal< br>Dura tion of Therapy: 7 days NaCl 0.9% 2020- No 1000mL at 75 Univ ers (NS) IV 03-3007 mL/hr, IV ity of infusion 15:30: 13:39 Infusion, [place] 1,000 mL 00 :30 CONTINUOUS Medic al , Starting Branch [place] 03/30/21 at 1030, Until [facility] 03/31/21 at 0839, Routine ciprofloxac 2020- No 200mg 200 mg, IV Univers in in 5 % 03-3008 Piggyback, ity of dextrose 10:00: 00:03 Administer [place] (CIPRO) 00 :41 over 60 Medical piggyback Minutes, Branch 200 mg Q12H ABX, First dose on [place] 03/30/21 at 0500, Until Discontinu ed, BRANDAN
Re ason for Anti-Infec tive: Documented Infection< br>Documen chava Infection Site: Abdominal< br>Duratio n of Therapy: 7 days NaCl 0.9% 2020- No 30mL/kg at 999 Un brian (NS) bolus 03-3006 mL/hr, ity of infusion 10:00: 10:29 2,244 mL [place] 2,244 mL 00 :00 (30 mL/kg Medica l ?74.8 kg), Branch IV Piggyback, ONCE, 1 dose, [place] 03/30/21 at 0500, STAT metroNIDAZO 2020- No 500mg 500 mg, U velvet LE (FLAGYL) 03-30 Oral, ity of tablet 500 10:00: 08:52 ONCE, 1 [place] mg 00 :00 dose, [facility] 03/30/21 at Branch 0500, Routine
Reason for Anti-Infec tive: Documented Infection< br>Documen chava Infection Site: Abdominal< br>Duratio n of Therapy: Other (see Comments) levoFLOXaci 2020- No 750mg 750 mg, IV Univers n in D5W 03-30 06-06 Piggyback, ity of (LEVAQUIN) 09:45: 10:21 ONCE, 1 [place] 750 mg/150 00 :00 dose, Sun Medi shilpa mL 03/30/21 at Branch Piggyback 0445, 150 750 mg mL
Reas on for Anti-Infec tive: Documented Infection< br>Documen chava Infection Site: Respirator y
Durat ion of Therapy: Other (see Comments) ondansetron Yes 4mg 4 mg, Slow Univers (ZOFRAN 03-30 IV Push, ity of (PF)) 08:46: Q6HPRN, [place] injection 4 16 Starting Medi shilpa mg 03/30/21 Branch at 0346, Until Discontinu ed, Routine, Nausea and Vomiting (N/V) acetaminoph Yes 650mg 650 mg, Un brian en 03-30 Oral, ity of (TYLENOL) 08:45: Q6HPRN, [place] tablet 650 58 Starting Medic al mg 03/30/21 Branch at 0345, Until Discontinu ed, Routine, Pain (scale 1-3), Temp > 38.5 C sulfamethox 2020- No [id number] 1{tbl} Take 1 Univers azole-trime 01-18 04-04 tablet by it y of thoprim 00:00: 04:59 mouth 2 [place] (BACTRIM 00 :00 (two) Medical DS) 800-160 times Branch mg per daily for tablet 7 days. tetanus-dip 2020- No .5mL 0.5 mL, Un brian htheria 12-16-22 Intramuscu ity o f toxoids 16:45: 15:50 lar, ONCE, [place] (TENIVAC) 00 :00 1 dose, Medical 5-2 Lf Mon Branch unit/0.5 mL 12/16/20 at injection 1045, 0.5 mL Routine KCL 20 mEq 2020- No [id number] 20meq Take 1 Univers tablet 12-15 03-24 tablet by ity of 00:00: 04:59 mouth [place] 00 :00 daily for Medical 30 days. Branch KCL 20 mEq 2020-0 2020- No [id number] 20meq Take 1 Univers tablet 2-12 01-24 tablet by ity of 00:00: 04:59 mouth [place] 00 :00 daily for Medical 30 days. Branch KCL 20 mEq 2020-0 2020- No [id number] 20meq Take 1 Univers tablet 2-12 01-24 tablet by ity of 00:00: 04:59 mouth [place] 00 :00 daily for Medical 30 days. Branch KCL 20 mEq 2020-0 2020- No [id number] 20meq Take 1 Univers tablet 2-12 01-24 [...] nasal congestion . L.acid/L.ca Yes Take by Uni vers sei/B.bif/B 2-20 mouth. ity of .joanna/FOS 21:25: [place] (PROBIOTIC 05 Medical BLEND ORAL) Branch ascorbic Yes 500mg Take 500 Univ ers acid, 2-20 mg by ity of vitamin C, 21:25: mouth. [place] (VITAMIN C) 05 Medical 500 mg Branch Cranberry Yes 1{capsu Take 1 Uni vers 400 mg Cap 2-20 le} capsule by ity of 21:25: mouth 3 [place] 05 (three) Medical times Branch daily. loratadine Yes 10mg Take 10 mg U nivers (CLARITIN) 2-20 by mouth ity o f 10 mg 21:25: daily. [place] tablet 05 Medical Branch aspirin 2021-0 Yes 81mg Take 81 mg Univ ers (KWAME 2-20 by mouth ity of CHEWABLE 21:25: daily. [place] ASPIRIN) 81 05 Medical mg chewable Branch [...] nasal congestion . L.acid/L.ca Yes Take by Uni vers sei/B.bif/B 2-20 mouth. ity of .joanna/FOS 21:25: [place] (PROBIOTIC 05 Medical BLEND ORAL) Branch ascorbic Yes 500mg Take 500 [facility] ers acid, 2-20 mg by ity of vitamin C, 21:25: mouth. [place] (VITAMIN C) 05 Medical 500 mg Branch [...] by mouth ity of CHEWABLE 21:25: daily. [place] ASPIRIN) 81 05 Medical mg chewable Branch [...] nasal congestion . L.acid/L.ca Yes Take by Uni vers sei/B.bif/B 2-20 mouth. ity of .joanna/FOS 21:25: [place] (PROBIOTIC 05 Medical BLEND ORAL) Branch ascorbic Yes 500mg Take 500 [facility] ers acid, 2-20 mg by ity of vitamin C, 21:25: mouth. [place] (VITAMIN C) 05 Medical 500 mg Branch Cranberry Yes 1{capsu Take 1 Uni vers 400 mg Cap 2-20 le} capsule by ity of 21:25: mouth 3 [place] [address] (three) Medical times Branch daily. loratadine Yes 10mg Take 10 mg [facility] nivers (CLARITIN) 2-20 by mouth ity o f 10 mg 21:25: daily. [place] tablet 05 Medical Branch aspirin Yes 81mg Take 81 mg Univ ers (KWAME 2-20 by mouth ity of CHEWABLE 21:25: daily. [place] ASPIRIN) 81 05 Medical mg chewable Branch tablet magnesium Yes 1{capsu Take 1 Uni vers oxide 400 2-20 le} capsule by ity of mg capsule 21:25: mouth [place] [address] daily. Medical Branch tamsulosin Yes tamsulosin [facility] 0.4 mg 24 2-20 0.4 mg [place] of hr capsule 21:25: capsule [place] 05 Take 1 Medical capsule Branch every day by oral route as directed for 30 days. watch out for or stop if: headache, dizziness upon standing, or worsened nasal congestion . L.acid/L.ca Yes Take by Uni vers sei/B.bif/B 2-20 mouth. ity of .joanna/FOS 21:25: [place] (PROBIOTIC 05 Medical BLEND ORAL) Branch ascorbic Yes 500mg Take 500 [facility] ers acid, 2-20 mg by ity of vitamin C, 21:25: mouth. [place] (VITAMIN C) 05 Medical 500 mg Branch Cranberry Yes 1{capsu Take 1 Uni vers 400 mg Cap 2-20 le} capsule by ity of 21:25: mouth 3 [place] [address] (three) Medical times Branch daily. loratadine Yes 10mg Take 10 mg [facility] (CLARITIN) 2-20 by mouth ity o f 10 mg 21:25: daily. [place] tablet 05 Medical Branch aspirin Yes 81mg Take 81 mg Univ ers (KWAME 2-20 by mouth ity of CHEWABLE 21:25: daily. [place] ASPIRIN) 81 05 Medical mg chewable Branch [...] nasal congestion . L.acid/L.ca Yes Take by Uni vers sei/B.bif/B 2-20 mouth. ity of .joanna/FOS 21:25: [place] (PROBIOTIC 05 Medical BLEND ORAL) Branch ascorbic Yes 500mg Take 500 [facility] ers acid, 2-20 mg by ity of vitamin C, 21:25: mouth. [place] (VITAMIN C) 05 Medical 500 mg Branch [...] by mouth ity of CHEWABLE 21:25: daily. [place] ASPIRIN) 81 05 Medical mg chewable Branch [...] nasal congestion . L.acid/L.ca Yes Take by Uni vers sei/B.bif/B 2-20 mouth. ity of .joanna/FOS 21:25: [place] (PROBIOTIC 05 Medical BLEND ORAL) Branch ascorbic Yes 500mg Take 500 [facility] ers acid, 2-20 mg by ity of vitamin C, 21:25: mouth. [place] (VITAMIN C) 05 Medical 500 mg Branch Cranberry Yes 1{capsu Take 1 Uni vers 400 mg Cap 2-20 le} capsule by ity of 21:25: mouth 3 [place] [address] (three) Medical times Branch daily. loratadine Yes 10mg Take 10 mg [facility] (CLARITIN) 2-20 by mouth ity o f 10 mg 21:25: daily. [place] tablet 05 Medical Branch aspirin Yes 81mg Take 81 mg [facility] ers (KWAME 2-20 by mouth ity of CHEWABLE 21:25: daily. [place] ASPIRIN) 81 05 Medical mg chewable Branch tablet magnesium Yes 1{capsu Take 1 Uni vers oxide 400 2-20 le} capsule by ity of mg capsule 21:25: mouth [place] [address] daily. Medical Branch tamsulosin Yes tamsulosin [facility] 0.4 mg 24 2-20 0.4 mg ity of hr capsule 21:25: capsule [place] 05 Take 1 Medical capsule Branch every day by oral route as directed for 30 days. watch out for or stop if: headache, dizziness upon standing, or worsened nasal congestion . L.acid/L.ca Yes Take by Uni vers sei/B.bif/B 2-20 mouth. ity of .joanna/FOS 21:25: [place] (PROBIOTIC 05 Medical BLEND ORAL) Branch ascorbic Yes 500mg Take 500 [facility] ers acid, 2-20 mg by ity of vitamin C, 21:25: mouth. [place] (VITAMIN C) 05 Medical 500 mg Branch Cranberry Yes 1{capsu Take 1 [facility] vers 400 mg Cap 2-20 le} capsule by ity of 21:25: mouth 3 [place] [address] (three) Medical times Branch daily. loratadine Yes 10mg Take 10 mg [facility] (CLARITIN) 2-20 by mouth ity o f 10 mg 21:25: daily. [place] tablet 05 Medical Branch aspirin Yes 81mg Take 81 mg [facility] ers (KWAME 2-20 by mouth ity of CHEWABLE 21:25: daily. [place] ASPIRIN) 81 05 Medical mg chewable Branch [...] nasal congestion . L.acid/L.ca Yes Take by Uni vers sei/B.bif/B 2-20 mouth. ity of .joanna/FOS 21:25: [place] (PROBIOTIC 05 Medical BLEND ORAL) Branch ascorbic Yes 500mg Take 500 [facility] ers acid, 2-20 mg by ity of vitamin C, 21:25: mouth. [place] (VITAMIN C) 05 Medical 500 mg Branch [...] by mouth ity of CHEWABLE 21:25: daily. [place] ASPIRIN) 81 05 Medical mg chewable Branch [...] nasal congestion . L.acid/L.ca Yes Take by Uni vers sei/B.bif/B 2-20 mouth. ity of .joanna/FOS 21:25: [place] (PROBIOTIC 05 Medical BLEND ORAL) Branch ascorbic Yes 500mg Take 500 [facility] ers acid, 2-20 mg by ity of vitamin C, 21:25: mouth. [place] (VITAMIN C) 05 Medical 500 mg Branch Cranberry Yes 1{capsu Take 1 Uni vers 400 mg Cap 2-20 le} capsule by ity of 21:25: mouth 3 [place] [address] (three) Medical times Branch daily. loratadine Yes 10mg Take 10 mg [facility] (CLARITIN) 2-20 by mouth ity o f 10 mg 21:25: daily. [place] tablet 05 Medical Branch aspirin Yes 81mg Take 81 mg [facility] ers (KWAME 2-20 by mouth ity of CHEWABLE 21:25: daily. [place] ASPIRIN) 81 05 Medical mg chewable Branch tablet magnesium Yes 1{capsu Take 1 Uni vers oxide 400 2-20 le} capsule by ity of mg capsule 21:25: mouth [place] [address] daily. Medical Branch tamsulosin Yes tamsulosin [facility] 0.4 mg 24 2-20 0.4 mg ity of hr capsule 21:25: capsule [place] 05 Take 1 Medical capsule Branch every day by oral route as directed for 30 days. watch out for or stop if: headache, dizziness upon standing, or worsened nasal congestion . L.acid/L.ca Yes Take by Uni vers sei/B.bif/B 2-20 mouth. ity of .joanna/FOS 21:25: [place] (PROBIOTIC 05 Medical BLEND ORAL) Branch ascorbic Yes 500mg Take 500 [facility] ers acid, 2-20 mg by ity of vitamin C, 21:25: mouth. [place] (VITAMIN C) 05 Medical 500 mg Branch Cranberry Yes 1{capsu Take 1 [facility] vers 400 mg Cap 2-20 le} capsule by ity of 21:25: mouth 3 [place] [address] (three) Medical times Branch daily. loratadine Yes 10mg Take 10 mg [facility] (CLARITIN) 2-20 by mouth ity o f 10 mg 21:25: daily. [place] tablet 05 Medical Branch nystatin Yes Topical, [facility] (MYCOSTATIN 2-20 BID, First it y of ) cream 16:00: dose on Sat Medical 12/14/20 at Branch 1000, Until Discontinu ed, Routine bisacodyL 2020- No 10mg 10 mg, [facility] (DULCOLAX) 2-20 02-20 Rectal, ity o f suppository 15:30: 14:39 ONCE, 1 [place] 10 mg 00 :00 dose, Sat Medical 12/14/20 at Branch 0930, Routine hydrALAZINE Yes [id number] 100mg Take 1 [facility] 100 mg 2-20 tablet by ity of tablet 00:00: mouth 2 (two) Medical times Branch daily. losartan 50 Yes [id number] 50mg Take 1 [facility] mg tablet 2-20 tablet by ity o f 00:00: mouth (two) Medical times Branch daily. amLODIPine Yes [id number] 5mg Take 1 [facility] 5 mg tablet 2-20 tablet by ity of 00:00: mouth (two) Medical times Branch daily. apixaban 5 Yes 1358 5mg Take 1 [facility] mg tablet 2-20 tablet by ity o f 00:00: mouth (two) Medical times Branch daily. Indication s: atrial fibrillati on docusate Yes [id number] 100mg Take 1 [facility] 100 mg 2-20 capsule by ity of capsule 00:00: mouth (two) Medical times Branch daily. lactobacill Yes [id number] 1{tbl} Take 1 [facility] us 2-20 tablet by ity of acidophilus 00:00: mouth 2 [place] 25 million 00 (two) Medical cell -100 times Branch mg captab daily. nystatin Yes [id number] Apply to [facility] 100,000 2-20 area(s) 2 ity of unit/gram 00:00: (two) [place] cream 00 times Medical daily. Branch sennosides Yes [id number] 8.6mg Take 1 [facility] 8.6 mg 2-20 tablet by ity of tablet 00:00: mouth 2 [place] (two) Medical times Branch daily. QUEtiapine Yes [id number] 50mg Take 1 [facility] 50 mg 2-20 tablet by ity of tablet 00:00: mouth 00 every Medical evening. Branch metoprolol 0 Yes [id number] 100mg Take 1 [facility] succinate 2-20 tablet by ity o f XL 100 mg 00:00: mouth 2 24 hr 00 (two) Medical tablet times Branch daily. hydrALAZINE 2020-0 Yes [id number] 100mg Take 1 [facility] 100 mg 2-20 tablet by ity of tablet 00:00: mouth 2 (two) Medical times Branch daily. losartan 50 2020-0 Yes [id number] 50mg Take 1 [facility] mg tablet 2-20 tablet by ity o f 00:00: mouth (two) Medical times Branch daily. amLODIPine 2020-0 Yes [id number] 5mg Take 1 [facility] 5 mg tablet 2-20 tablet by ity of 00:00: mouth (two) Medical times Branch daily. apixaban 5 0 Yes 1358 5mg Take 1 [facility] mg tablet 2-20 tablet by ity o f 00:00: mouth (two) Medical times Branch daily. Indication s: atrial fibrillati on docusate 0 Yes [id number] 100mg Take 1 [facility] 100 mg 2-20 capsule by ity of capsule 00:00: mouth (two) Medical times Branch daily. lactobacill Yes [id number] 1{tbl} Take 1 [facility] us 2-20 tablet by ity of acidophilus 00:00: mouth 2 [place] 25 million 00 (two) Medical cell -100 times Branch mg captab daily. nystatin Yes [id number] Apply to [facility] 100,000 2-20 area(s) 2 ity of unit/gram 00:00: (two) [place] cream 00 times Medical daily. Branch sennosides Yes [id number] 8.6mg Take 1 [facility] 8.6 mg 2-20 tablet by ity of tablet 00:00: mouth 2 (two) Medical times Branch daily. QUEtiapine 0 Yes [id number] 50mg Take 1 [facility] 50 mg 2-20 tablet by ity of tablet 00:00: mouth 00 every Medical evening. Branch metoprolol 2021-0 Yes [id number] 100mg Take 1 [facility] succinate 2-20 tablet by ity o f XL 100 mg 00:00: mouth 2 [place] 24 hr 00 (two) Medical tablet times Branch daily. hydrALAZINE 0 Yes [id number] 100mg Take 1 [facility] 100 mg 2-20 tablet by ity of tablet 00:00: mouth 2 (two) Medical times Branch daily. losartan 50 2020-0 Yes [id number] 50mg Take 1 [facility] mg tablet 2-20 tablet by ity o f 00:00: mouth 2 (two) Medical times Branch daily. amLODIPine 2020-0 Yes [id number] 5mg Take 1 [facility] 5 mg tablet 2-20 tablet by ity of 00:00: mouth (two) Medical times Branch daily. apixaban 5 2020-0 Yes 1358 5mg Take 1 [facility] mg tablet 2-20 tablet by ity o f 00:00: mouth 2 (two) Medical times Branch daily. Indication s: atrial fibrillati on docusate 0 Yes [id number] 100mg Take 1 [facility] 100 mg 2-20 capsule by ity of capsule 00:00: mouth (two) Medical times Branch daily. lactobacill Yes [id number] 1{tbl} Take 1 [facility] us 2-20 tablet by ity of acidophilus 00:00: mouth 2 [place] 25 million 00 (two) Medical cell -100 times Branch mg captab daily. nystatin Yes [id number] Apply to [facility] 100,000 2-20 area(s) 2 ity of unit/gram 00:00: (two) [place] cream 00 times Medical daily. Branch sennosides Yes [id number] 8.6mg Take 1 [facility] 8.6 mg 2-20 tablet by ity of tablet 00:00: mouth 2 (two) Medical times Branch daily. QUEtiapine 0 Yes [id number] 50mg Take 1 [facility] 50 mg 2-20 tablet by ity of tablet 00:00: mouth 00 every Medical evening. Branch metoprolol Yes [id number] 100mg Take 1 [facility] succinate 2-20 tablet by ity o f XL 100 mg 00:00: mouth 2 [place] 24 hr 00 (two) Medical tablet times Branch daily. hydrALAZINE 0 Yes [id number] 100mg Take 1 [facility] 100 mg 2-20 tablet by ity of tablet 00:00: mouth 2 (two) Medical times Branch daily. losartan 50 2020-0 Yes [id number] 50mg Take 1 [facility] mg tablet 2-20 tablet by ity o f 00:00: mouth 2 (two) Medical times Branch daily. amLODIPine 2020-0 Yes [id number] 5mg Take 1 [facility] 5 mg tablet 2-20 tablet by ity of 00:00: mouth 2 (two) Medical times Branch daily. apixaban 5 2020-0 Yes 1358 5mg Take 1 [facility] mg tablet 2-20 tablet by ity o f 00:00: mouth 2 (two) Medical times Branch daily. Indication s: atrial fibrillati on docusate 0 Yes [id number] 100mg Take 1 [facility] 100 mg 2-20 capsule by ity of capsule 00:00: mouth (two) Medical times Branch daily. lactobacill Yes [id number] 1{tbl} Take 1 [facility] us 2-20 tablet by ity of acidophilus 00:00: mouth 2 [place] 25 million 00 (two) Medical cell -100 times Branch mg captab daily. nystatin Yes [id number] Apply to [facility] 100,000 2-20 area(s) 2 ity of unit/gram 00:00: (two) [place] cream 00 times Medical daily. Branch sennosides 0 Yes [id number] 8.6mg Take 1 [facility] 8.6 mg 2-20 tablet by ity of tablet 00:00: mouth 2 (two) Medical times Branch daily. QUEtiapine 2020-0 Yes [id number] 50mg Take 1 [facility] 50 mg 2-20 tablet by ity of tablet 00:00: mouth 00 every Medical evening. Branch metoprolol 0 Yes [id number] 100mg Take 1 [facility] succinate 2-20 tablet by ity o f XL 100 mg 00:00: mouth 2 [place] 24 hr 00 (two) Medical tablet times Branch daily. hydrALAZINE 2020-0 Yes [id number] 100mg Take 1 [facility] 100 mg 2-20 tablet by ity of tablet 00:00: mouth 2 00 (two) Medical times Branch daily. losartan 50 2020-0 Yes [id number] 50mg Take 1 [facility] mg tablet 2-20 tablet by ity o f 00:00: mouth 2 00 (two) Medical times Branch daily. amLODIPine 2020-0 Yes [id number] 5mg Take 1 [facility] 5 mg tablet 2-20 tablet by ity of 00:00: mouth 2 00 (two) Medical times Branch daily. apixaban 5 2020-0 Yes 1358 5mg Take 1 [facility] mg tablet 2-20 tablet by ity o f 00:00: mouth 2 (two) Medical times Branch daily. Indication s: atrial fibrillati on docusate 2020-0 Yes [id number] 100mg Take 1 [facility] 100 mg 2-20 capsule by ity of capsule 00:00: mouth 2 (two) Medical times Branch daily. lactobacill 2020-0 Yes [id number] 1{tbl} Take 1 [facility] us 2-20 tablet by ity of acidophilus 00:00: mouth 2 [place] 25 million 00 (two) Medical cell -100 times Branch mg captab daily. nystatin 2020-0 Yes [id number] Apply to [facility] 100,000 2-20 area(s) 2 ity of unit/gram 00:00: (two) [place] cream 00 times Medical daily. Branch sennosides 2020-0 Yes [id number] 8.6mg Take 1 [facility] 8.6 mg 2-20 tablet by ity of tablet 00:00: mouth 2 00 (two) Medical times Branch daily. QUEtiapine 2020-0 Yes [id number] 50mg Take 1 [facility] 50 mg 2-20 tablet by ity of tablet 00:00: mouth [place] 00 every Medical evening. Branch metoprolol 2020-0 Yes [id number] 100mg Take 1 [facility] succinate 2-20 tablet by ity o f XL 100 mg 00:00: mouth 2 [place] 24 hr 00 (two) Medical tablet times Branch daily. hydrALAZINE 2020-0 Yes [id number] 100mg Take 1 [facility] 100 mg 2-20 tablet by ity of tablet 00:00: mouth 2 [place] 00 (two) Medical times Branch daily. losartan 50 0 Yes [id number] 50mg Take 1 [facility] mg tablet 2-20 tablet by ity o f 00:00: mouth 2 (two) Medical times Branch daily. amLODIPine 2020- Yes [id number] 5mg Take 1 [facility] 5 mg tablet 2-20 tablet by ity of 00:00: mouth 2 (two) Medical times Branch daily. apixaban 5 2020- Yes 1358 5mg Take 1 [facility] mg tablet 2-20 tablet by ity o f 00:00: mouth 2 (two) Medical times Branch daily. Indication s: atrial fibrillati on docusate Yes [id number] 100mg Take 1 [facility] 100 mg 2-20 capsule by ity of capsule 00:00: mouth 2 (two) Medical times Branch daily. lactobacill Yes [id number] 1{tbl} Take 1 [facility] us 2-20 tablet by ity of acidophilus 00:00: mouth 2 [place] 25 million 00 (two) Medical cell -100 times Branch mg captab daily. nystatin Yes [id number] Apply to [facility] 100,000 2-20 area(s) 2 ity of unit/gram 00:00: (two) [place] cream 00 times Medical daily. Branch sennosides Yes [id number] 8.6mg Take 1 [facility] 8.6 mg 2-20 tablet by ity of tablet 00:00: mouth 2 (two) Medical times Branch daily. QUEtiapine 0 Yes [id number] 50mg Take 1 [facility] 50 mg 2-20 tablet by ity of tablet 00:00: mouth [place] 00 every Medical evening. Branch metoprolol Yes [id number] 100mg Take 1 [facility] succinate 2-20 tablet by ity o f XL 100 mg 00:00: mouth 2 [place] 24 hr 00 (two) Medical tablet times Branch daily. hydrALAZINE 0 Yes [id number] 100mg Take 1 [facility] 100 mg 2-20 tablet by ity of tablet 00:00: mouth 2 00 (two) Medical times Branch daily. losartan 50 Yes [id number] 50mg Take 1 [facility] mg tablet 2-20 tablet by ity o f 00:00: mouth 2 (two) Medical times Branch daily. amLODIPine Yes [id number] 5mg Take 1 [facility] 5 mg tablet 2-20 tablet by ity of 00:00: mouth 2 (two) Medical times Branch daily. apixaban 5 Yes 1358 5mg Take 1 [facility] mg tablet 2-20 tablet by ity o f 00:00: mouth 2 (two) Medical times Branch daily. Indication s: atrial fibrillati on docusate Yes [id number] 100mg Take 1 [facility] 100 mg 2-20 capsule by ity of capsule 00:00: mouth (two) Medical times Branch daily. lactobacill Yes [id number] 1{tbl} Take 1 [facility] us 2-20 tablet by ity of acidophilus 00:00: mouth 2 [place] 25 million 00 (two) Medical cell -100 times Branch mg captab daily. nystatin Yes [id number] Apply to [facility] 100,000 2-20 area(s) 2 ity of unit/gram 00:00: (two) [place] cream 00 times Medical daily. Branch sennosides Yes [id number] 8.6mg Take 1 [facility] 8.6 mg 2-20 tablet by ity of tablet 00:00: mouth (two) Medical times Branch daily. QUEtiapine Yes [id number] 50mg Take 1 [facility] 50 mg 2-20 tablet by ity of tablet 00:00: mouth 00 every Medical evening. Branch metoprolol Yes [id number] 100mg Take 1 [facility] succinate 2-20 tablet by ity o f XL 100 mg 00:00: mouth 2 [place] 24 hr 00 (two) Medical tablet times Branch daily. hydrALAZINE Yes [id number] 100mg Take 1 [facility] 100 mg 2-20 tablet by ity of tablet 00:00: mouth 2 00 (two) Medical times Branch daily. losartan 50 Yes [id number] 50mg Take 1 [facility] mg tablet 2-20 tablet by ity o f 00:00: mouth 2 [place] 00 (two) Medical times Branch daily. amLODIPine Yes [id number] 5mg Take 1 [facility] 5 mg tablet 2-20 tablet by ity of 00:00: mouth 2 (two) Medical times Branch daily. apixaban 5 2020- Yes 1358 5mg Take 1 [facility] mg tablet 2-20 tablet by ity o f 00:00: mouth 2 (two) Medical times Branch daily. Indication s: atrial fibrillati on docusate Yes [id number] 100mg Take 1 [facility] 100 mg 2-20 capsule by ity of capsule 00:00: mouth 2 (two) Medical times Branch daily. lactobacill Yes [id number] 1{tbl} Take 1 [facility] us 2-20 tablet by ity of acidophilus 00:00: mouth 2 [place] 25 million (two) Medical cell -100 times Branch mg captab daily. nystatin Yes [id number] Apply to [facility] 100,000 2-20 area(s) 2 ity of unit/gram 00:00: (two) [place] cream 00 times Medical daily. Branch sennosides Yes [id number] 8.6mg Take 1 [facility] 8.6 mg 2-20 tablet by ity of tablet 00:00: mouth (two) Medical times Branch daily. QUEtiapine Yes [id number] 50mg Take 1 [facility] 50 mg 2-20 tablet by ity of tablet 00:00: mouth 00 every Medical evening. Branch metoprolol Yes [id number] 100mg Take 1 [facility] succinate 2-20 tablet by ity o f XL 100 mg 00:00: mouth 2 [place] 24 hr 00 (two) Medical tablet times Branch daily. hydrALAZINE 0 Yes [id number] 100mg Take 1 [facility] 100 mg 2-20 tablet by ity of tablet 00:00: mouth 2 00 (two) Medical times Branch daily. losartan 50 0 Yes [id number] 50mg Take 1 [facility] mg tablet 2-20 tablet by ity o f 00:00: mouth 2 00 (two) Medical times Branch daily. amLODIPine Yes [id number] 5mg Take 1 [facility] 5 mg tablet 2-20 tablet by ity of 00:00: mouth 2 00 (two) Medical times Branch daily. apixaban 5 Yes 1358 5mg Take 1 [facility] mg tablet 2-20 tablet by ity o f 00:00: mouth 2 (two) Medical times Branch daily. Indication s: atrial fibrillati on docusate Yes [id number] 100mg Take 1 [facility] 100 mg 2-20 capsule by ity of capsule 00:00: mouth 2 (two) Medical times Branch daily. lactobacill Yes [id number] 1{tbl} Take 1 [facility] us 2-20 tablet by ity of acidophilus 00:00: mouth 2 [place] 25 million (two) Medical cell -100 times Branch mg captab daily. nystatin Yes [id number] Apply to [facility] 100,000 2-20 area(s) 2 ity of unit/gram 00:00: (two) [place] cream 00 times Medical daily. Branch sennosides Yes [id number] 8.6mg Take 1 [facility] 8.6 mg 2-20 tablet by ity of tablet 00:00: mouth (two) Medical times Branch daily. QUEtiapine Yes [id number] 50mg Take 1 [facility] 50 mg 2-20 tablet by ity of tablet 00:00: mouth 00 every Medical evening. Branch metoprolol Yes [id number] 100mg Take 1 [facility] succinate 2-20 tablet by ity o f XL 100 mg 00:00: mouth 2 [place] 24 hr 00 (two) Medical tablet times Branch daily. hydrALAZINE Yes [id number] 100mg Take 1 [facility] 100 mg 2-20 tablet by ity of tablet 00:00: mouth (two) Medical times Branch daily. losartan 50 0 Yes [id number] 50mg Take 1 [facility] mg tablet 2-20 tablet by ity o f 00:00: mouth 2 00 (two) Medical times Branch daily. amLODIPine Yes [id number] 5mg Take 1 [facility] 5 mg tablet 2-20 tablet by ity of 00:00: mouth 2 (two) Medical times Branch daily. apixaban 5 Yes 1358 5mg Take 1 [facility] mg tablet 2-20 tablet by ity o f 00:00: mouth 2 (two) Medical times Branch daily. Indication s: atrial fibrillati on docusate Yes [id number] 100mg Take 1 [facility] 100 mg 2-20 capsule by ity of capsule 00:00: mouth 2 (two) Medical times Branch daily. lactobacill Yes [id number] 1{tbl} Take 1 [facility] us 2-20 tablet by ity of acidophilus 00:00: mouth 2 [place] 25 million 00 (two) Medical cell -100 times Branch mg captab daily. nystatin Yes [id number] Apply to [facility] 100,000 2-20 area(s) 2 ity of unit/gram 00:00: (two) [place] cream 00 times Medical daily. Branch sennosides Yes [id number] 8.6mg Take 1 [facility] 8.6 mg 2-20 tablet by ity of tablet 00:00: mouth 2 (two) Medical times Branch daily. QUEtiapine Yes [id number] 50mg Take 1 [facility] 50 mg 2-20 tablet by ity of tablet 00:00: mouth [place] 00 every Medical evening. Branch metoprolol Yes [id number] 100mg Take 1 [facility] succinate 2-20 tablet by ity o f XL 100 mg 00:00: mouth 2 [place] 24 hr 00 (two) Medical tablet times Branch daily. hydrALAZINE Yes [id number] 100mg Take 1 [facility] 100 mg 2-20 tablet by ity of tablet 00:00: mouth 2 00 (two) Medical times Branch daily. losartan 50 Yes [id number] 50mg Take 1 [facility] mg tablet 2-20 tablet by ity o f 00:00: mouth 2 (two) Medical times Branch daily. amLODIPine Yes [id number] 5mg Take 1 [facility] 5 mg tablet 2-20 tablet by ity of 00:00: mouth 2 (two) Medical times Branch daily. apixaban 5 Yes 1358 5mg Take 1 [facility] mg tablet 2-20 tablet by ity o f 00:00: mouth (two) Medical times Branch daily. Indication s: atrial fibrillati on docusate Yes [id number] 100mg Take 1 [facility] 100 mg 2-20 capsule by ity of capsule 00:00: mouth (two) Medical times Branch daily. lactobacill Yes [id number] 1{tbl} Take 1 [facility] us 2-20 tablet by ity of acidophilus 00:00: mouth 2 [place] 25 (two) Medical cell -100 times Branch mg captab daily. sennosides Yes [id number] 8.6mg Take 1 [facility] 8.6 mg 2-20 tablet by ity of tablet 00:00: mouth (two) Medical times Branch daily. QUEtiapine Yes [id number] 50mg Take 1 [facility] 50 mg 2-20 tablet by ity of tablet 00:00: mouth every Medical evening. Branch hydrALAZINE Yes [id number] 100mg Take 1 [facility] 100 mg 2-20 tablet by ity of tablet 00:00: mouth (two) Medical times Branch daily. losartan 50 0 Yes [id number] 50mg Take 1 [facility] mg tablet 2-20 tablet by ity o f 00:00: mouth (two) Medical times Branch daily. amLODIPine Yes [id number] 5mg Take 1 [facility] 5 mg tablet 2-20 tablet by ity of 00:00: mouth (two) Medical times Branch daily. apixaban 5 0 Yes 1358 5mg Take 1 [facility] mg tablet 2-20 tablet by ity o f 00:00: mouth (two) Medical times Branch daily. Indication s: atrial fibrillati on docusate Yes [id number] 100mg Take 1 [facility] 100 mg 2-20 capsule by ity of capsule 00:00: mouth (two) Medical times Branch daily. lactobacill Yes [id number] 1{tbl} Take 1 [facility] us 2-20 tablet by ity of acidophilus 00:00: mouth 2 [place] 25 million (two) Medical cell -100 times Branch mg captab daily. sennosides Yes [id number] 8.6mg Take 1 [facility] 8.6 mg 2-20 tablet by ity of tablet 00:00: mouth 2 [place] 00 (two) Medical times Branch daily. QUEtiapine Yes [id number] 50mg Take 1 [facility] 50 mg 2-20 tablet by ity of tablet 00:00: mouth [place] 00 every Medical evening. Branch nystatin 2020- No [id number] Apply to [facility] 100,000 2-20 - area(s) 2 ity of unit/gram 00:00: 00:00 (two) [place] cream 00 :00 times Medical daily. Branch metoprolol 2020- No [id number] 100mg Take 1 [facility] succinate 2-20 - tablet by ity of XL 100 mg 00:00: 00:00 mouth 2 [place] 24 hr 00 :00 (two) Medical tablet times [place] daily. NaCl 0.9% 2020- No [id number] 1g Infuse 1 g [facility] (NS) PgBk 2-14 12- every 24 ity o f 50 mL with 00:00: 05:59 (twenty-fo [place] ertapenem 1 00 :00 ur) hours Med ical gram SolR 1 for 5 Branch g days. NaCl 0.9% 2020- No [id number] 1g Infuse 1 g [facility] (NS) PgBk 2-14 12- every 24 ity o f 50 mL with 00:00: 05:59 (twenty-fo [place] ertapenem 1 00 :00 ur) hours Med ical gram SolR 1 for 5 Branch g days. NaCl 0.9% 2020- No [id number] 1g Infuse 1 g Univers (NS) PgBk 2-14 12-26 every 24 ity o f 50 mL with 00:00: 05:59 (twenty-fo [place] ertapenem 1 00 :00 ur) hours Med ical gram SolR 1 for 5 Branch g days. glycerin/mi 2020- No [id number] 225mL Insert 225 Univers neral oil, 2 02-21 mL into ity o f AGLO ENEMA, 00:00: 05:59 rectum [place] Enem 00 :00 once now Medical for 1 Branch dose. NaCl 0.9% Yes 10mL 10 mL, Univer s (NS) 2-19 Slow IV ity of injection 20:33: Push, PRN, [place] 10 mL 03 Starting Medical [facility] 12/13/20 at 1433, Until Discontinu ed, Routine, line maintenanc e ertapenem Yes 1000mg 1,000 mg, U nivers (INVANZ) 2-17 IV ity of 1,000 mg in 00:45: Piggyback, [place] NaCl 0.9% 00 Q24H ABX, Medic al (NS) 50 mL First dose Bra [facility] MINI-BAG on [facility] 12/10/20 at 1845, Until Discontinu ed, 50 mL
R alejandra for Anti-Infec tive: Empiric Therapy for Suspected Infection< br>Empiric Therapy Site: Urine
D uration of therapy: 72 hours
R estricted use approved by: ADC PROVIDER furosemide Yes 20mg 20 mg, IV Un brian (LASIX) 2-16 Push, ity of injection 17:30: DAILY, [place] 20 mg 00 First dose Medical (after Branch last reorder) on [facility] 12/10/20 at 1130, Until Discontinu ed, Routine cloNIDine Yes .1mg 0.1 mg, Unive rs (CATAPRES) 2-16 Oral, BID, ity of tablet 0.1 17:30: First dose [place] mg 00 on [facility] 12/10/20 at Branch 1130, Until Discontinu ed, Routine KCL Yes 40meq 40 mEq, Univers (KLOR-CON 2-16 Oral, ity of M20) tablet 15:00: DAILY, [place] 40 mEq 00 First dose Medical on [facility] 12/10/20 at 0900, Until Discontinu ed, Routine ziprasidone 2020- No 10mg 10 mg, Uni vers (GEODON) 16 02-16 Intramuscu ity of injection 08:15: 07:13 lar, ONCE, [place] 10 mg 00 :00 1 dose, Medical [facility] 12/10/20 at 0215, Routine haloperidol 2020-0 202- No 5mg 5 mg, Univ ers lactate 2-16 02-16 Intramuscu ity o f (HALDOL) 04:30: 03:49 lar, ONCE, [place] injection 5 00 :00 1 dose, Medic al mg [facility] 12/09/20 at 2230, Routine hydrALAZINE 2020-0 Yes 100mg 100 mg, Un brian (APRESOLINE 2-16 Oral, BID, it y of ) tablet 02:00: First dose [place] 100 mg 00 (after Medical last Branch modificati on) on [facility] 12/09/20 at 2000, Until Discontinu ed, Routine furosemide 2020-0 2020- No 20mg 20 mg, IV U nivers (LASIX) 2-16 02-16 Push, ity of injection 02:00: 01:40 ONCE, 1 [place] 20 mg 00 :00 dose, [facility] 12/09/20 at Branch 2000, Routine amLODIPine 0 Yes 5mg 5 mg, Univer s (NORVASC) 2-16 Oral, BID, ity of tablet 5 mg 01:00: First dose [place] 00 (after Medical last Branch modificati on) on [facility] 12/09/20 at 1900, Until Discontinu ed, Routine magnesium 0 Yes 400mg 400 mg, Univ ers oxide 2-16 Oral, BID, ity of (MAG-OX 00:45: First dose [place] 400[place] tablet 00 on [facility] Medica l 400 mg 12/09/20 at Branch 1845, Until Discontinu ed, Routine QUEtiapine 0 Yes 50mg 50 mg, Unive rs (SEROQUEL) 2-16 Oral, QPM, ity of tablet 50 00:45: First dose [place] mg 00 on [facility] 12/09/20 at Branch 1845, Until Discontinu ed, Routine metoprolol 0 Yes 100mg 100 mg, Uni vers succinate 2-15 Oral, BID, ity of XL (TOPROL 12:15: First dose [place] XL) tablet 00 (after Medical 100 mg last Branch modificati on) on [facility] 12/09/20 at 0615, Until Discontinu ed, Routine losartan 2020-0 Yes 50mg 50 mg, Univers (COZAAR) 2-15 Oral, BID, ity o f tablet 50 12:15: First dose [place] mg 00 (after Medical last Branch modificati on) on 12/09/20 at 0615, Until Discontinu ed, Routine haloperidol 2020- No 3mg 3 mg, Slow Univers lactate 12-09 IV Push, ity of (HALDOL) 07:15: 07:17 ONCE, 1 [place] injection 3 00 :00 dose, Mon Med ical mg 12/09/20 at Branch 0115, Routine metoprolol 2020- No 5mg 5 mg, Slow Univers (LOPRESSOR) 12-09 IV Push, ity of injection 5 05:45: 05:56 ONCE, 1 [place] mg 00 :00 dose, [facility] 12/08/20 at Branch 2345, Routine proCHLORper 2020- No 10mg 10 mg, IV Univers azine 12-0916 Piggyback, ity of (COMPAZINE) 04:05: 01:09 TIDPRN, [place] 10 mg in 18 :50 Starting Medical NaCl 0.9% [facility] (NS) 12/08/20 at piggyback 2205, Until Wed12/09/20 at 1909, 50 mL metoclopram No 10mg 10 mg, Uni vers dain HCl 12-09 Slow IV ity of (REGLAN) 03:15: 02:28 Push, [place] injection 00 :00 ONCE, 1 Medical 10 mg dose, [facility] 12/08/20 at 2115, BRANDAN sennosides Yes 8.6mg 8.6 mg, Uni vers (SENOKOT) 2-15 Oral, BID, ity of tablet 8.6 02:15: First dose [place] mg 00 on [facility] 12/08/20 at Branch 2014, Until Discontinu ed, Routine cyclobenzap Yes 10mg 10 mg, Univ ers rine 2-15 Oral, TID, ity of (FLEXERIL) 02:15: First dose [place] tablet 10 00 on [facility] mg 12/08/20 at Branch 2014, Until Discontinu ed, Routine apixaban Yes 5mg 5 mg, Univers (ELIQUIS) 2-15 Oral, BID, ity of tablet 5 mg 02:00: First dose [place] 00 on [facility] 12/08/20 at Branch 2000, Until Discontinu ed, Routine metoprolol No 50mg 50 mg, Univ ers succinate 12-09 Oral, BID, ity of XL (TOPROL 02:00: 12:02 First dose [place] XL) tablet 00 :32 (after Medical 50 mg last Branch modificati on) on [place] 12/08/20 at 2000, Until Discontinu ed, Routine hydrALAZINE No 50mg 50 mg, Uni vers (APRESOLINE 12-08 Oral, BID, i ty of ) tablet 50 20:00: 00:39 First dose [place] mg 00 :40 on [facility] 12/08/20 at Branch 1400, Until Discontinu ed, Routine losartan No 25mg 25 mg, Univer s (COZAAR) 12-08 Oral, BID, ity of tablet 25 20:00: 12:02 First dose [place] mg 00 :32 on [facility] 12/08/20 at Branch 1400, Until Discontinu ed, Routine cefTRIAXone No 1000mg 1,000 mg, Univers (ROCEPHIN) 12-08 IV ity of 1,000 mg in 17:00: 23:36 Piggyback, [place] NaCl 0.9% 00 :43 Q12H ABX, Medic al (NS) 50 mL First dose Bra moh MINI-BAG (after last reorder) on [place] 12/08/20 at 1100, Until Discontinu ed, 50 mL
Reas on for Anti-Infec tive: Documented Infection< br>Documen chava Infection Site: Urine
D uration of Therapy: 7 days finasteride Yes 5mg 5 mg, Unive rs (PROSCAR) 12-08 Oral, ity of tablet 5 mg 15:00: DAILY, [place] 00 First dose Medical on [facility] 12/08/20 at 0900, Until Discontinu ed, Routine furosemide No 20mg 20 mg, Univ ers (LASIX) 12-08 Oral, ity of tablet 20 15:00: 17:29 DAILY, [place] mg 00 :58 First dose Medical on [facility] 12/08/20 at 0900, Until Discontinu ed, Routine enoxaparin No 40mg 40 mg, Univ ers (LOVENOX) 12-08 02-14 Subcutaneo ity of injection 15:00: 23:09 us, DAILY, [place] 40 mg 00 :53 First dose Medical on [facility] 12/08/20 at 0900, Until Discontinu ed, Routine levothyroxi Yes 100ug 100 mcg, U nivers ne 2-14 Oral, ity of (SYNTHROID) 12:00: QAM-0600, [place] tablet 100 00 First dose Med ical mcg on [facility] 12/08/20 at 0600, Until Discontinu ed, Routine NaCl 0.9% No 1000mL at 100 Uni vers (NS) IV 12-08 02-16 mL/hr, IV ity of infusion 07:45: 00:47 Infusion, [place] 1,000 mL 00 :00 CONTINUOUS Medic al , Starting Branch [place] 12/08/20 at 0145, Until [facility] 12/09/20 at 1847, Routine docusate Yes 100mg 100 mg, Unive rs (COLACE) 214 Oral, BID, ity o f capsule 100 06:45: First dose [place] mg 00 on [facility] 12/08/20 at Branch 0045, Until Discontinu ed, Routine lactobacill 0 Yes 1{tbl} 1 tablet, Univers us 14 Oral, BID, ity of acidophilus 06:45: First dose [place] (ACIDOPHILL 00 on [facility] [place]) 25 12/08/20 at Branch million 0045, cell -100 Until mg captab 1 Discontinu tablet ed, Routine rivastigmin 0 Yes 3mg 3 mg, Unive rs e tartrate 14 Oral, ity of (EXELON) 06:45: QAM+PM, [place] capsule 3 00 First dose Medi shilpa mg on [facility] 12/08/20 at 0045, Until Discontinu ed
Facu lty member approving Restricted medication : MEGADC metoprolol No 25mg 25 mg, Univ ers succinate 12-08 02-15 Oral, BID, ity of XL (TOPROL 06:45: 01:28 First dose [place] XL) tablet 00 :59 on [facility] 25 mg 12/08/20 at Branch 0045, Until Discontinu ed, Routine aspirin No 81mg 81 mg, Univers chewable 2-14 02-15 Oral, QAM ity o f tablet 81 06:45: 19:10 WITH [place] mg 00 :41 BREAKFAST, Medical First dose Branch on 12/08/20 at 0045, Until Discontinu ed, Routine ondansetron Yes 4mg 4 mg, Slow Univers (ZOFRAN 2-14 IV Push, ity of (PF)) 06:40: Q6HPRN, [place] injection 4 05 Starting Medi shilpa mg [facility] 12/08/20 at 0040, Until Discontinu ed, Routine, Nausea and Vomiting (N/V) aspirin 0 Yes 81mg Take 81 mg Univ ers (KWAME 2-14 by mouth ity of CHEWABLE 06:32: daily. [place] ASPIRIN) 81 39 Medical mg chewable Branch tablet magnesium Yes 1{capsu Take 1 Uni vers oxide 400 2-14 le} capsule by ity of mg capsule 06:32: mouth [place] 39 daily. Medical Branch tamsulosin Yes tamsulosin U nivers 0.4 mg 24 2-14 0.4 mg ity of hr capsule 06:32: capsule [place] 39 Take 1 Medical capsule Branch every day by oral route as directed for 30 days. watch out for or stop if: headache, dizziness upon standing, or worsened nasal congestion . L.acid/L.ca Yes Take by Uni vers sei/B.bif/B 2-14 mouth. ity of .joanna/FOS 06:32: [place] (PROBIOTIC 39 Medical BLEND ORAL) Branch ascorbic 0 Yes 500mg Take 500 Univ ers acid, 2-14 mg by ity of vitamin C, 06:32: mouth. [place] (VITAMIN C) 39 Medical 500 mg Branch aspirin Yes 81mg Take 81 mg Univ ers (KWAME 2-14 by mouth ity of CHEWABLE 06:32: daily. [place] ASPIRIN) 81 39 Medical mg chewable Branch tablet magnesium 0 Yes 1{capsu Take 1 Uni vers oxide 400 2-14 le} capsule by ity of mg capsule 06:32: mouth [place] 39 daily. Medical Branch tamsulosin Yes tamsulosin U nivers 0.4 mg 24 2-14 0.4 mg ity of hr capsule 06:32: capsule [place] 39 Take 1 Medical capsule Branch every day by oral route as directed for 30 days. watch out for or stop if: headache, dizziness upon standing, or worsened nasal congestion . L.acid/L.ca Yes Take by Uni vers sei/B.bif/B 2-14 mouth. ity of .joanna/FOS 06:32: [place] (PROBIOTIC 39 Medical BLEND ORAL) Branch ascorbic Yes 500mg Take 500 Univ ers acid, 2-14 mg by ity of vitamin C, 06:32: mouth. [place] (VITAMIN C) 39 Medical 500 mg Branch cefTRIAXone 2020- No 1000mg 1,000 mg, Univers (ROCEPHIN) 12-08 IV ity of 1,000 mg in 03:45: 03:14 PiggybackHart, [place] NaCl 0.9% 00 :00 ONCE, 1 [...] 1000mL at 999 Uni vers (NS) bolus 2-13 02-14 mL/hr, ity of infusion 23:00: 01:16 1,000 mL, [place] 1,000 mL 00 :00 IV Medical Infusion, Branch ONCE, 1 dose, 12/07/20 at 1700, [place] rivastigmin 0 Yes [id number] 1{patch Apply 1 Univers e 9.5 mg/24 2-08 } Patch to ity of hr patch 00:00: skin [place] 00 daily. Medical Branch rivastigmin Yes [id number] 1{patch Apply 1 Univers e 9.5 mg/24 2-08 } Patch to ity of hr patch 00:00: skin [place] 00 daily. Medical Branch rivastigmin Yes [id number] 1{patch Apply 1 Univers e 9.5 mg/24 2-08 } Patch to ity of hr patch 00:00: skin [place] 00 daily. Medical Branch rivastigmin Yes [id number] 1{patch Apply 1 Univers e 9.5 mg/24 2-08 } Patch to ity of hr patch 00:00: skin [place] 00 daily. Medical Branch rivastigmin Yes [id number] 1{patch Apply 1 Univers e 9.5 mg/24 2-08 } Patch to ity of hr patch 00:00: skin [place] 00 daily. Medical Branch rivastigmin 2020- Yes [id number] 1{patch Apply 1 Univers e 9.5 mg/24 2-08 } Patch to ity of hr patch 00:00: skin [place] 00 daily. Medical Branch rivastigmin Yes [id number] 1{patch Apply 1 Univers e 9.5 mg/24 2-08 } Patch to ity of hr patch 00:00: skin [place] 00 daily. Medical Branch rivastigmin Yes [id number] 1{patch Apply 1 Univers e 9.5 mg/24 2-08 } Patch to ity of hr patch 00:00: skin [place] 00 daily. Medical Branch rivastigmin Yes [id number] 1{patch Apply 1 Univers e 9.5 mg/24 2-08 } Patch to ity of hr patch 00:00: skin [place] 00 daily. Medical Branch rivastigmin Yes [id number] 1{patch Apply 1 Univers e 9.5 mg/24 2-08 } Patch to ity of hr patch 00:00: skin [place] 00 daily. Medical Branch rivastigmin Yes [id number] 1{patch Apply 1 Univers e 9.5 mg/24 2-08 } Patch to ity of hr patch 00:00: skin [place] 00 daily. Medical Branch rivastigmin Yes [id number] 1{patch Apply 1 Univers e 9.5 mg/24 2-08 } Patch to ity of hr patch 00:00: skin [place] 00 daily. Medical Branch rivastigmin Yes [id number] 1{patch Apply 1 Univers e 9.5 mg/24 2-08 } Patch to ity of hr patch 00:00: skin [place] 00 daily. Medical Branch rivastigmin Yes [id number] 1{patch Apply 1 Univers e 9.5 mg/24 2-08 } Patch to ity of hr patch 00:00: skin [place] 00 daily. Medical Branch aspirin Yes 81mg Take 81 mg Univ ers (KWAME 1-04 by mouth ity of CHEWABLE 17:50: daily. [place] ASPIRIN) 81 08 Medical mg chewable Branch [...] nasal congestion . L.acid/L.ca Yes Take by Uni vers sei/B.bif/B 1-04 mouth. ity of .joanna/FOS 17:50: [place] (PROBIOTIC 08 Medical BLEND ORAL) Branch ascorbic Yes 500mg Take 500 Univ ers acid, 1-04 mg by ity of vitamin C, 17:50: mouth. [place] (VITAMIN C) 08 Medical 500 mg Branch aspirin Yes 81mg Take 81 mg Univ ers (KWAME 1-04 by mouth ity of CHEWABLE 17:50: daily. [place] ASPIRIN) 81 08 Medical mg chewable Branch [...] nasal congestion . L.acid/L.ca Yes Take by Uni vers sei/B.bif/B 1-04 mouth. ity of .joanna/FOS 17:50: [place] (PROBIOTIC 08 Medical BLEND ORAL) Branch ascorbic Yes 500mg Take 500 Univ ers acid, 1-04 mg by ity of vitamin C, 17:50: mouth. [place] (VITAMIN C) 08 Medical 500 mg Branch aspirin Yes 81mg Take 81 mg Univ ers (KWAME 1-04 by mouth ity of CHEWABLE 17:50: daily. [place] ASPIRIN) 81 08 Medical mg chewable Branch [...] nasal congestion . L.acid/L.ca Yes Take by Uni vers sei/B.bif/B 1-04 mouth. ity of .joanna/FOS 17:50: [place] (PROBIOTIC 08 Medical BLEND ORAL) Branch ascorbic 0 Yes 500mg Take 500 Univ ers acid, 1-04 mg by ity of vitamin C, 17:50: mouth. [place] (VITAMIN C) 08 Medical 500 mg Branch bupivacaine 0 Yes PRN, Univer s (preserv 1-04 Starting ity of free) 17:20: 10/28/20 [place] (SENSORCAIN 00 at 1120, Medi shilpa E MPF) 0.25 Intra-op Bran ch % (2.5 mg/mL) 4 mL, lidocaine 1% (PF) (XYLOCAINE) 4 mL, triamcinolo ne acetonide (KENALOG) 80 mg lidocaine 0 Yes PRN, Univers PF 2% 04 Starting ity of (XYLOCAINE- 17:19: 10/28/20 [place] MPF) 00 at 1119, Medical injection Until Branch Discontinu ed, Routine, Intra-op lidocaine Yes PRN, Univers 1% (PF) 04 Starting ity of (XYLOCAINE) 17:18: 10/28/20 [place] injection 00 at 1118, Medica l Until Branch Discontinu ed, Routine, Intra-op ascorbic 2019-10 Yes 500mg Take 500 Univ ers acid, 2-22 mg by ity of vitamin C, 16:22: mouth. [place] (VITAMIN C) 25 Medical 500 mg Branch ascorbic 2019-10 Yes 500mg Take 500 Univ ers acid, 2-22 mg by ity of vitamin C, 16:22: mouth. [place] (VITAMIN C) 25 Medical 500 mg Branch aspirin 2019-10 Yes 81mg Take 81 mg Univ ers (KWAME 2-22 by mouth ity of CHEWABLE 16:21: daily. [place] ASPIRIN) 81 34 Medical mg chewable Branch [...] congestion . L.acid/L.ca 2019-10 Yes Take by Uni vers sei/B.bif/B 2-22 mouth. ity of .joanan/FOS 16:21: [place] (PROBIOTIC 34 Medical BLEND ORAL) Branch aspirin 2019-10 Yes 81mg Take 81 mg Univ ers (KWAME 2-22 by mouth ity of CHEWABLE 16:21: daily. [place] ASPIRIN) 81 34 Medical mg chewable Branch tablet magnesium 2019- Yes 1{capsu Take 1 Uni vers oxide 400 2-22 le} capsule by ity of mg capsule 16:21: mouth [place] 34 daily. Medical Branch tamsulosin 2019- Yes tamsulosin U nivers 0.4 mg 24 2-22 0.4 mg ity of hr capsule 16:21: capsule [place] 34 Take 1 Medical capsule Branch every day by oral route as directed for 30 days. watch out for or stop if: headache, dizziness upon standing, or worsened nasal congestion . L.acid/L.ca 2019-10 Yes Take by Uni vers sei/B.bif/B 2-22 mouth. ity of .joanna/FOS 16:21: [place] (PROBIOTIC 34 Medical BLEND ORAL) Branch cyclobenzap 2019- Yes [id number] 10mg Take 1 Univers rine 10 mg 2-01 tablet by ity of tablet 00:00: mouth 3 [place] 00 (three) Medical times Branch daily. cyclobenzap 2019- Yes [id number] 10mg Take 1 Univers rine 10 mg 2-01 tablet by ity of tablet 00:00: mouth 3 [place] 00 (three) Medical times Branch daily. cyclobenzap 2020- Yes [id number] 10mg Take 1 Univers rine 10 mg 2-01 tablet by ity of tablet 00:00: mouth 3 [place] 00 (three) Medical times Branch daily. cyclobenzap 2019- Yes [id number] 10mg Take 1 Univers rine 10 mg 2-01 tablet by ity of tablet 00:00: mouth 3 [place] 00 (three) Medical times Branch daily. cyclobenzap 2020- Yes [id number] 10mg Take 1 Univers rine 10 mg 2-01 tablet by ity of tablet 00:00: mouth 3 [place] 00 (three) Medical times Branch daily. cyclobenzap 2020- Yes [id number] 10mg Take 1 Univers rine 10 mg 2-01 tablet by ity of tablet 00:00: mouth 3 [place] 00 (three) Medical times Branch daily. cyclobenzap 2019- Yes [id number] 10mg Take 1 Univers rine 10 mg 2-01 tablet by ity of tablet 00:00: mouth 3 [place] 00 (three) Medical times Branch daily. cyclobenzap 2020-1 Yes [id number] 10mg Take 1 Univers rine 10 mg 2-01 tablet by ity of tablet 00:00: mouth 3 [place] 00 (three) Medical times Branch daily. cyclobenzap 2020-1 Yes [id number] 10mg Take 1 Univers rine 10 mg 2-01 tablet by ity of tablet 00:00: mouth 3 [place] 00 (three) Medical times Branch daily. cyclobenzap 2020-1 Yes [id number] 10mg Take 1 Univers rine 10 mg 2-01 tablet by ity of tablet 00:00: mouth 3 [place] 00 (three) Medical times Branch daily. cyclobenzap 2020-1 Yes [id number] 10mg Take 1 Univers rine 10 mg 2-01 tablet by ity of tablet 00:00: mouth 3 00 (three) Medical times Branch daily. cyclobenzap 2020-1 Yes [id number] 10mg Take 1 Univers rine 10 mg 2-01 tablet by ity of tablet 00:00: mouth 3 00 (three) Medical times Branch daily. cyclobenzap 2020-1 Yes [id number] 10mg Take 1 Univers rine 10 mg 2-01 tablet by ity of tablet 00:00: mouth 3 00 (three) Medical times Branch daily. cyclobenzap 2020-1 Yes [id number] 10mg Take 1 Univers rine 10 mg 2-01 tablet by ity of tablet 00:00: mouth 3 00 (three) Medical times Branch daily. cyclobenzap 2020-1 Yes [id number] 10mg Take 1 Univers rine 10 mg 2-01 tablet by ity of tablet 00:00: mouth 3 00 (three) Medical times Branch daily. cyclobenzap 2020-1 Yes [id number] 10mg Take 1 Univers rine 10 mg 2-01 tablet by ity of tablet 00:00: mouth 3 [place] 00 (three) Medical times Branch daily. cyclobenzap 2020-1 Yes [id number] 10mg Take 1 Univers rine 10 mg 2-01 tablet by ity of tablet 00:00: mouth 3 [place] 00 (three) Medical times Branch daily. cyclobenzap 2020-1 Yes [id number] 10mg Take 1 Univers rine 10 mg 2-01 tablet by ity of tablet 00:00: mouth 3 [place] 00 (three) Medical times Branch daily. cyclobenzap 2020-1 Yes [id number] 10mg Take 1 Univers rine 10 mg 2- tablet by ity of tablet 00:00: mouth 3 [place] 00 (three) Medical times Branch daily. cyclobenzap 2019-10- No [id number] 10mg Take 1 Univers rine 10 mg 2- 06- tablet by ity of tablet 00:00: 00:00 mouth 3 [place] 00 :00 (three) Medical times Branch daily. LINZESS 290 2019- Yes TK 1 C PO U nivers mcg Cap 1-25 QD FOR 8 ity of 00:00: DAYS [place] Medical Branch LINZESS 290 2020- Yes TK 1 C PO U nivers mcg Cap 1-25 QD FOR 8 ity of 00:00: [place] Medical Branch LINZESS 290 2020- Yes TK 1 C PO U nivers mcg Cap 1-25 QD FOR 8 ity of 00:00: [place] Medical Branch LINZESS 290 2020- Yes TK 1 C PO U nivers mcg Cap 1-25 QD FOR 8 ity of 00:00: DAYS [place] Medical Branch LINZESS 290 2020- Yes TK 1 C PO U nivers mcg Cap 1-25 QD FOR 8 ity of 00:00: DAYS [place] Medical Branch LINZESS 290 2020- Yes TK 1 C PO U nivers mcg Cap 1-25 QD FOR 8 ity of 00:00: DAYS [place] Medical Branch LINZESS 290 2020- Yes TK 1 C PO U nivers mcg Cap 1-25 QD FOR 8 ity of 00:00: DAYS [place] Medical [facility] LINZESS 290 2020- Yes TK 1 C PO U nivers mcg Cap 1-25 QD FOR 8 ity of 00:00: DAYS [place] [facility] Branch LINZESS 290 2020- Yes TK 1 C PO U nivers mcg Cap 1-25 QD FOR 8 ity of 00:00: [place] [facility] Branch LINZESS 290 2020- Yes TK 1 C PO U nivers mcg Cap 1-25 QD FOR 8 ity of 00:00: [place] Medical Branch LINZESS 290 2020- Yes TK 1 C PO U nivers mcg Cap 1-25 QD FOR 8 ity of 00:00: DAYS [place] Medical Branch LINZESS 290 2020- Yes TK 1 C PO U nivers mcg Cap 1-25 QD FOR 8 ity of 00:00: DAYS 00 Medical Branch LINZESS 290 2020- Yes TK 1 C PO U nivers mcg Cap 1-25 QD FOR 8 ity of 00:00: DAYS 00 Medical Branch LINZESS 290 2020- Yes TK 1 C PO U nivers mcg Cap 1-25 QD FOR 8 ity of 00:00: DAYS [place] [facility] LINZESS 290 2020- Yes TK 1 C PO U nivers mcg Cap 1-25 QD FOR 8 ity of 00:00: DAYS [place] [facility] LINZESS 290 2020- Yes TK 1 C PO U nivers mcg Cap 1-25 QD FOR 8 ity of 00:00: DAYS [place] Medical Branch LINZESS 290 2020- Yes TK 1 C PO U nivers mcg Cap 1-25 QD FOR 8 ity of 00:00: DAYS [place] Medical Branch LINZESS 290 2020- 2021- No TK 1 C PO Univers mcg Cap 1-25 06-11 QD FOR 8 ity of 00:00: 00:00 DAYS [place] 00 :00 Medical Branch CYCLOBENZAP 2020-1 Yes [id number] TAKE 1 Univers RINE 10 mg -06 TABLET BY ity of tablet 00:00: MOUTH [place] 00 THREE Medical TIMES Branch DAILY NEEDED CYCLOBENZAP 2020-1 2020- No [id number] TAKE 1 Univers RINE 10 mg 10-30 TABLET BY ity of tablet 00:00: 00:00 MOUTH [place] 00 :00 THREE Medical TIMES Branch DAILY NEEDED CYCLOBENZAP 2020-1 2020- No [id number] TAKE 1 Univers RINE 10 mg 10-30 TABLET BY ity of tablet 00:00: 00:00 MOUTH [place] 00 :00 THREE Medical TIMES Branch DAILY NEEDED rivastigmin 2020- Yes [id number] 1{patch Apply 1 Univers e 4.6 mg/24 1-05 } Patch to ity of hr patch 00:00: skin [place] 00 daily. Medical Branch rivastigmin 2020- Yes [id number] 1{patch Apply 1 Univers e 4.6 mg/24 1-05 } Patch to ity of hr patch 00:00: skin [place] 00 daily. Medical Branch rivastigmin 2020- Yes [id number] 1{patch Apply 1 Univers e 4.6 mg/24 1-05 } Patch to ity of hr patch 00:00: skin [place] 00 daily. Medical Branch rivastigmin 2019-10 Yes [id number] 1{patch Apply 1 Univers e 4.6 mg/24 1-05 } Patch to ity of hr patch 00:00: skin [place] 00 daily. Medical Branch rivastigmin 2019-10 Yes [id number] 1{patch Apply 1 Univers e 4.6 mg/24 1-05 } Patch to ity of hr patch 00:00: skin [place] 00 daily. Medical Branch rivastigmin 2019-10 Yes [id number] 1{patch Apply 1 Univers e 4.6 mg/24 1-05 } Patch to ity of hr patch 00:00: skin [place] 00 daily. Medical Branch rivastigmin 2019-10 Yes [id number] 1{patch Apply 1 Univers e 4.6 mg/24 1-05 } Patch to ity of hr patch 00:00: skin [place] 00 daily. Medical Branch rivastigmin 2019-10 Yes [id number] 1{patch Apply 1 Univers e 4.6 mg/24 1-05 } Patch to ity of hr patch 00:00: skin [place] 00 daily. Medical Branch rivastigmin 2019-10 Yes [id number] 1{patch Apply 1 Univers e 4.6 mg/24 1-05 } Patch to ity of hr patch 00:00: skin [place] 00 daily. Medical Branch rivastigmin 2019-10- No [id number] 1{patch Apply 1 Univers e 4.6 mg/24 1-05 -08 } Patch to ity of hr patch 00:00: 00:00 skin [place] 00 :00 daily. Medical Branch rivastigmin 2019-10- No [id number] 1{patch Apply 1 Univers e 4.6 mg/24 1-05 02-08 } Patch to ity of hr patch 00:00: 00:00 skin [place] 00 :00 daily. Medical Branch aspirin Yes 81mg Take 81 mg Univ ers (KWAME 07-15 by mouth ity of CHEWABLE 14:01: daily. [place] ASPIRIN) 81 17 Medical mg chewable Branch tablet magnesium Yes 1{capsu Take 1 Uni vers oxide 400 07-15 le} capsule by ity of mg capsule 14:01: mouth [place] 17 daily. Medical Branch tamsulosin Yes tamsulosin U nivers 0.4 mg 24 9-21 0.4 mg ity of hr capsule 14:01: capsule [place] 17 Take 1 Medical capsule Branch every day by oral route as directed for 30 days. watch out for or stop if: headache, dizziness upon standing, or worsened nasal congestion . L.acid/L.ca 2020-0 Yes Take by Uni vers sei/B.bif/B 9-21 mouth. ity of .joanna/FOS 14:01: [place] (PROBIOTIC 17 Medical BLEND ORAL) Branch aspirin 2020-0 Yes 81mg Take 81 mg Univ ers (KWAME 21 by mouth ity of CHEWABLE 14:01: daily. [place] ASPIRIN) 81 17 Medical mg chewable Branch [...] congestion . L.acid/L.ca 2020-0 Yes Take by Uni vers sei/B.bif/B 9-21 mouth. ity of .joanna/FOS 14:01: [place] (PROBIOTIC 17 Medical BLEND ORAL) Branch aspirin 2020-0 Yes 81mg Take 81 mg Univ ers (KWAME 21 by mouth ity of CHEWABLE 14:01: daily. [place] ASPIRIN) 81 17 Medical mg chewable Branch [...] congestion . L.acid/L.ca 2020-0 Yes Take by Uni vers sei/B.bif/B 9-21 mouth. ity of .joanna/FOS 14:01: [...] Yes tamsulosin U nivers 0.4 mg 24 9- 0.4 mg [place]y of hr capsule 14:01: capsule [place] 17 Take 1 Medical capsule Branch every day by oral route as directed for 30 days. watch out for or stop if: headache, dizziness upon standing, or worsened nasal congestion . L.acid/L.ca 2020-0 Yes Take by Uni vers sei/B.bif/B 07-15 mouth. ity of .joanna/FOS 14:01: [place] (PROBIOTIC 17 Medical BLEND ORAL) Branch aspirin 2020-0 Yes 81mg Take 81 mg Univ ers (KWAME 07-15 by mouth ity of CHEWABLE 14:01: daily. [place] ASPIRIN) 81 17 Medical mg chewable Branch [...] congestion . L.acid/L.ca 2020-0 Yes Take by Uni vers sei/B.bif/B 07-15 mouth. ity of .joanna/FOS 14:01: [place] (PROBIOTIC 17 Medical BLEND ORAL) Branch aspirin 2020-0 Yes 81mg Take 81 mg Univ ers (KWAME 21 by mouth ity of CHEWABLE 14:01: daily. [place] ASPIRIN) 81 17 Medical mg chewable Branch [...] congestion . L.acid/L.ca 2020-0 Yes Take by Uni vers sei/B.bif/B 07-15 mouth. ity of .joanna/FOS 14:01: [place] (PROBIOTIC 17 Medical BLEND ORAL) Branch aspirin 2020-0 Yes 81mg Take 81 mg Univ ers (KWAME 07-15 by mouth ity of CHEWABLE 14:01: daily. [place] ASPIRIN) 81 17 Medical mg chewable Branch [...] congestion . L.acid/L.ca 2020-0 Yes Take by Uni vers sei/B.bif/B 07-15 mouth. ity of .joanna/FOS 14:01: [place] (PROBIOTIC 17 Medical BLEND ORAL) Branch iohexoL 2020-0 Yes PRN, Univers (OMNIPAQUE 07-15 Starting ity o f 300-50 mL)) 13:13: [facility] injection 07/15/20 at [facility] [address] [place] [address] Until Discontinu ed, Routine, Intra-op NaCl 0.9% 2020-0 Yes PRN, Univers (NS) 07-15 Starting ity of injection 12:53: [facility] 07/15/20 at [place] [address], Branch Until Discontinu ed, Routine, Intra-op triamcinolo 2020-0 Yes PRN, Univer s ne 07-15 Starting ity of acetonide 12:53: [facility] (KENALOG) 00 07/15/20 at [facility] injection [facility], [place] Until Discontinu ed, Routine, Intra-op lidocaine 2020-0 Yes PRN, Univers 1% (PF) 07-15 Starting ity of (XYLOCAINE) 12:53: Mon [place] injection 00 07/15/20 at Medi shilpa 0753, Branch Until Discontinu ed, Routine, Intra-op bupivacaine 2020-0 Yes PRN, Univer s (preserv 07-15 Starting ity of free) 12:52: Mon [place] (SENSORCAIN 00 07/15/20 at Mn dical E MPF) 0.25 0752, Branch % (2.5 Until mg/mL) Discontinu injection ed, Routine, Intra-op lactated 2020-0 Yes 1000mL at 20 Univer s ringers IV - mL/hr, ity of infusion 12:15: 1,000 [place], [place] 1,000 mL 00 IV Medical Infusion, Branch CONTINUOUS , Starting 07/15/20 at 0715, Until Discontinu ed, Routine, DSU Pre-op aspirin 2020-0 Yes 81mg Take 81 mg Univ ers (KWAME 916 by mouth ity of CHEWABLE 13:59: daily. [place] ASPIRIN) 81 34 Medical mg chewable Branch [...] congestion . L.acid/L.ca 2020-0 Yes Take by Uni vers sei/B.bif/B 9-16 mouth. ity of .joanna/FOS 13:59: [place] (PROBIOTIC 34 Medical BLEND ORAL) Branch aspirin 2020-0 Yes 81mg Take 81 mg Univ ers (KWAME 9-16 by mouth ity of CHEWABLE 13:59: daily. [place] ASPIRIN) 81 34 Medical mg chewable Branch [...] congestion . L.acid/L.ca 2020-0 Yes Take by Uni vers sei/B.bif/B - mouth. ity of .joanna/FOS 13:59: [place] (PROBIOTIC 34 Medical BLEND ORAL) Branch lactated 2020-0 Yes 1000mL at 75 Univer s ringers IV 9-16 mL/hr, ity of infusion 13:45: 1,000 mL, [place] 1,000 mL 00 IV Medical Infusion, Branch CONTINUOUS , Starting Wed07/10/20 at 0845, Until Discontinu ed, Routine, PACU water for 2020-0 Yes PRN, Univers irrigation 07-10 Starting ity o f irrigation 13:05: Wed [place] solution 00 07/10/20 at Medic al 0805, Branch Until Discontinu ed, Routine, Intra-op simethicone 2020-0 Yes PRN, Univer s (GAS RELIEF 07-10 Starting ity of (SIMETHICON 13:04: Wed [place] E)) 40 00 07/10/20 at Medical mg/0.6 mL 0804, Branch drops Until Discontinu ed, Routine, Intra-op lactated 2020-0 2020- No 1000mL at 20 Unive rs ringers IV 07-10 09-16 mL/hr, ity of infusion 13:00: 12:54 1,000 mL, [place] 1,000 mL 00 :00 IV Medical Infusion, Branch ONCE, 1 dose, Wed07/10/20 at 0800, Routine, DSU Pre-op aspirin 2020-0 Yes 81mg Take 81 mg Univ ers (KWAME 07-08 by mouth ity of CHEWABLE 14:45: daily. [place] ASPIRIN) 81 11 Medical mg chewable Branch tablet magnesium 2020-0 Yes 1{capsu Take 1 Uni vers oxide 400 07-08 le} capsule by ity of mg capsule 14:45: mouth [place] 11 daily. Medical Branch tamsulosin 2020-0 Yes tamsulosin U nivers 0.4 mg 24 07-08 0.4 mg ity of hr capsule 14:45: capsule [place] 11 Take 1 Medical capsule Branch every day by oral route as directed for 30 days. watch out for or stop if: headache, dizziness upon standing, or worsened nasal congestion . L.acid/L.ca 2020-0 Yes Take by Uni vers sei/B.bif/B 14 mouth. ity of .joanna/FOS 14:45: [place] (PROBIOTIC 11 Medical BLEND ORAL) Branch bupivacaine 2020-0 2020- No 5mL Unive [...] ity of (DECADRON) 19:00: 17:57 lar, ONCE, [place] injection 00 :00 1 dose, Medical 10 [...] ity of free) 19:00: 17:56 on, ONCE, [place] (SENSORCAIN 00 :00 1 dose, Medic al [...] 00 :00 Medical 10 mg Branch dexamethaso 2019-0 2020- No 10mg 10 mg, Uni vers [...] mL 06/25/20 Branch at 1400, Routine bupivacaine 2019-0 2020- No 5mL 5 mL, Univ ers (preserv 06-25 Infiltrati ity of free) 19:00: 17:56 on, ONCE, [place] (SENSORCAIN 00 :00 1 dose, Medic al E MPF) 0.25 06/25/20 Br anch % (2.5 at 1400, mg/mL) Routine injection 5 mL aspirin 2020-0 Yes 81mg Take 81 mg Univ ers (KWAME 06-25 by mouth ity of CHEWABLE 14:48: daily. [place] ASPIRIN) 81 19 Medical mg chewable Branch [...] congestion . L.acid/L.ca 2020-0 Yes Take by Uni vers sei/B.bif/B 06-25 mouth. ity of .joanna/FOS 14:48: [place] (PROBIOTIC 19 Medical BLEND ORAL) Branch aspirin 2020-0 Yes 81mg Take 81 mg Univ ers (KWAME 06-25 by mouth ity of CHEWABLE 14:48: daily. [place] ASPIRIN) 81 19 Medical mg chewable Branch [...] congestion . L.acid/L.ca 2020-0 Yes Take by Uni vers sei/B.bif/B 06-25 mouth. ity of .joanna/FOS 14:48: [place] (PROBIOTIC 19 Medical BLEND ORAL) Branch aspirin 2020-0 Yes 81mg Take 81 mg Univ ers (KWAME 06-25 by mouth ity of CHEWABLE 14:48: daily. [place] ASPIRIN) 81 19 Medical mg chewable Branch tablet magnesium 2020-0 Yes 1{capsu Take 1 Uni vers oxide 400 06-25 le} capsule by ity of mg capsule 14:48: mouth [place] 19 daily. Medical Branch tamsulosin 2020-0 Yes tamsulosin U nivers 0.4 mg 06-25 0.4 mg ity of hr capsule 14:48: capsule [place] 19 Take 1 Medical capsule Branch every day by oral route as directed for 30 days. watch out for or stop if: headache, dizziness upon standing, or worsened nasal congestion . L.acid/L.ca 2020-0 Yes Take by Uni vers sei/B.bif/B 06-25 mouth. ity of .joanna/FOS 14:48: [place] (PROBIOTIC 19 Medical BLEND ORAL) Branch aspirin 2020-0 Yes 81mg Take 81 mg Univ ers (KWAME 06-25 by mouth ity of CHEWABLE 14:48: daily. [place] ASPIRIN) 81 19 Medical mg chewable Branch [...] congestion . L.acid/L.ca 2020-0 Yes Take by Uni vers sei/B.bif/B 06-25 mouth. ity of .joanna/FOS 14:48: [place] (PROBIOTIC 19 Medical BLEND ORAL) Branch aspirin 2020-0 Yes 81mg Take 81 mg Univ ers (KWAME 06-25 by mouth ity of CHEWABLE 14:48: daily. [place] ASPIRIN) 81 19 Medical mg chewable Branch [...] congestion . L.acid/L.ca 2020-0 Yes Take by Uni vers sei/B.bif/B 06-25 mouth. ity of .joanna/FOS 14:48: [place] (PROBIOTIC 19 Medical BLEND ORAL) Branch cyclobenzap 2020-0 Yes [id number] 10mg Take 1 Univers rine 10 mg 9-01 tablet by ity of tablet 00:00: mouth 3 (three) Medical times Branch daily as needed for Muscle Spasms. cyclobenzap 2020-0 Yes [id number] 10mg Take 1 Univers rine 10 mg 9-01 tablet by ity of tablet 00:00: mouth 3 [place] (three) Medical times Branch daily as needed for Muscle Spasms. cyclobenzap 2020-0 Yes [id number] 10mg Take 1 Univers rine 10 mg 9-01 tablet by ity of tablet 00:00: mouth 3 (three) Medical times Branch daily as needed for Muscle Spasms. cyclobenzap 2020-0 Yes [id number] 10mg Take 1 Univers rine 10 mg 9-01 tablet by ity of tablet 00:00: mouth 3 (three) Medical times Branch daily as needed for Muscle Spasms. cyclobenzap 2020-0 Yes [id number] 10mg Take 1 Univers rine 10 mg 9-01 tablet by ity of tablet 00:00: mouth 3 [place] 00 (three) Medical times Branch daily as needed for Muscle Spasms. cyclobenzap 2020-0 Yes [id number] 10mg Take 1 Univers rine 10 mg 9-01 tablet by ity of tablet 00:00: mouth 3 [place] 00 (three) Medical times Branch daily as needed for Muscle Spasms. cyclobenzap 2020-0 Yes [id number] 10mg Take 1 Univers rine 10 mg 9-01 tablet by ity of tablet 00:00: mouth 3 [place] 00 (three) Medical times Branch daily as needed for Muscle Spasms. cyclobenzap 2020-0 Yes [id number] 10mg Take 1 Univers rine 10 mg 9-01 tablet by ity of tablet 00:00: mouth 3 [place] 00 (three) Medical times Branch daily as needed for Muscle Spasms. cyclobenzap 2020-0 Yes [id number] 10mg Take 1 Univers rine 10 mg 9-01 tablet by ity of tablet 00:00: mouth 3 [place] 00 (three) Medical times Branch daily as needed for Muscle Spasms. cyclobenzap 2020-0 Yes [id number] 10mg Take 1 Univers rine 10 mg 9-01 tablet by ity of tablet 00:00: mouth 3 00 (three) Medical times Branch daily as needed for Muscle Spasms. cyclobenzap 2020-0 Yes [id number] 10mg Take 1 Univers rine 10 mg 9-01 tablet by ity of tablet 00:00: mouth 3 00 (three) Medical times Branch daily as needed for Muscle Spasms. cyclobenzap 2020-0 2020- No [id number] 10mg Take 1 Univers rine 10 mg 9-01 11-06 tablet by ity of tablet 00:00: 00:00 mouth 3 [place] 00 :00 (three) Medical times Branch daily as needed for Muscle Spasms. rivastigmin 2020-0 Yes [id number] 1{patch Apply 1 Univers e 4.6 mg/24 7-31 } Patch to ity of hr patch 00:00: skin [place] 00 daily. Medical Branch rivastigmin 2020-0 Yes [id number] 1{patch Apply 1 Univers e 4.6 mg/24 7-31 } Patch to ity of hr patch 00:00: skin [place] 00 daily. Medical Branch rivastigmin 2020-0 Yes [id number] 1{patch Apply 1 Univers e 4.6 mg/24 7-31 } Patch to ity of hr patch 00:00: skin [place] 00 daily. Medical Branch rivastigmin 2020-0 Yes [id number] 1{patch Apply 1 Univers e 4.6 mg/24 7-31 } Patch to ity of hr patch 00:00: skin [place] 00 daily. Medical Branch rivastigmin 2020-0 Yes [id number] 1{patch Apply 1 Univers e 4.6 mg/24 7-31 } Patch to ity of hr patch 00:00: skin [place] 00 daily. Medical Branch rivastigmin 2020-0 Yes [id number] 1{patch Apply 1 Univers e 4.6 mg/24 7-31 } Patch to ity of hr patch 00:00: skin [place] 00 daily. Medical Branch rivastigmin 2020-0 Yes [id number] 1{patch Apply 1 Univers e 4.6 mg/24 7-31 } Patch to ity of hr patch 00:00: skin [place] 00 daily. Medical Branch rivastigmin 2020-0 Yes [id number] 1{patch Apply 1 Univers e 4.6 mg/24 7-31 } Patch to ity of hr patch 00:00: skin [place] 00 daily. Medical Branch rivastigmin 2020-0 Yes [id number] 1{patch Apply 1 Univers e 4.6 mg/24 7-31 } Patch to ity of hr patch 00:00: skin [place] 00 daily. Medical Branch rivastigmin 2020-0 Yes [id number] 1{patch Apply 1 Univers e 4.6 mg/24 7-31 } Patch to ity of hr patch 00:00: skin [place] 00 daily. Medical Branch rivastigmin 2020-0 Yes [id number] 1{patch Apply 1 Univers e 4.6 mg/24 7-31 } Patch to ity of hr patch 00:00: skin [place] 00 daily. Medical Branch rivastigmin 2020-0 Yes [id number] 1{patch Apply 1 Univers e 4.6 mg/24 7-31 } Patch to ity of hr patch 00:00: skin [place] 00 daily. Medical Branch rivastigmin 2020-0 Yes [id number] 1{patch Apply 1 Univers e 4.6 mg/24 7-31 } Patch to ity of hr patch 00:00: skin [place] 00 daily. Medical Branch rivastigmin 2020-0 Yes [id number] 1{patch Apply 1 Univers e 4.6 mg/24 7-31 } Patch to ity of hr patch 00:00: skin [place] 00 daily. Medical Branch rivastigmin 2020-0 Yes [id number] 1{patch Apply 1 Univers e 4.6 mg/24 7-31 } Patch to ity of hr patch 00:00: skin [place] 00 daily. Medical Branch rivastigmin 2020-0 Yes [id number] 1{patch Apply 1 Univers e 4.6 mg/24 7-31 } Patch to ity of hr patch 00:00: skin [place] 00 daily. Medical Branch rivastigmin 2020-0 Yes [id number] 1{patch Apply 1 Univers e 4.6 mg/24 7-31 } Patch to ity of hr patch 00:00: skin [place] 00 daily. Medical Branch rivastigmin 2020-0 Yes [id number] 1{patch Apply 1 Univers e 4.6 mg/24 7-31 } Patch to ity of hr patch 00:00: skin [place] 00 daily. Medical Branch rivastigmin 2020-0 2020- No [id number] 1{patch Apply 1 Univers e 4.6 mg/24 7-31 11-05 } Patch to ity of hr patch 00:00: 00:00 skin [place] 00 :00 daily. Medical Branch niacin ER 2019-0 Yes Univers 1,000 mg 7-28 ity of tablet 00:00: [place] 00 Medical Branch atenoloL 25 2019-0 Yes Univer s mg tablet 7-28 ity of 00:00: [place] 00 Medical Branch niacin ER 2019-0 Yes Univers 1,000 mg 7-28 ity of tablet 00:00: [place] 00 Medical Branch atenoloL 25 2019-0 Yes Univer s mg tablet 7-28 ity of 00:00: [place] 00 Medical Branch niacin ER 2020-0 Yes Univers 1,000 mg 7-28 ity of tablet 00:00: [place] Medical Branch atenoloL 25 2019-0 Yes Univer s mg tablet 7-28 ity of 00:00: [place] 00 Medical Branch niacin ER 2020-0 Yes Univers 1,000 mg 7-28 ity of tablet 00:00: [place] 00 Medical Branch atenoloL 25 2020-0 Yes Univer s mg tablet 7-28 ity of 00:00: [place] [address] Medical Branch niacin ER 2020-0 Yes Univers 1,000 mg 7-28 ity of tablet 00:00: [place] [address] Medical Branch atenoloL 25 2020-0 Yes Univer s mg tablet 7-28 ity of 00:00: [place] [address] Medical Branch niacin ER 2020-0 Yes Univers 1,000 mg 7-28 ity of tablet 00:00: [place] [address] Medical Branch atenoloL 25 2019-0 Yes Univer s mg tablet 7-28 ity of 00:00: [place] [address] Medical Branch niacin ER 2020-0 Yes Univers 1,000 mg 7-28 ity of tablet 00:00: [place] [address] Medical Branch atenoloL 25 2019-0 Yes Univer s mg tablet 7-28 ity of 00:00: [place] [address] Medical Branch niacin ER 2020-0 Yes Univers 1,000 mg 7-28 ity of tablet 00:00: [place] [address] Medical Branch atenoloL 25 2019-0 Yes Univer s mg tablet 7-28 ity of 00:00: [place] [address] Medical Branch niacin ER 2020-0 Yes Univers 1,000 mg 7-28 ity of tablet 00:00: [place] [address] Medical Branch atenoloL 25 2019-0 Yes Univer s mg tablet 7-28 ity of 00:00: [place] [address] Medical Branch niacin ER 2020-0 Yes Univers 1,000 mg 7-28 ity of tablet 00:00: [place] [address] Medical Branch atenoloL 25 2020-0 Yes Univer s mg tablet 7-28 ity of 00:00: [place] [address] Medical Branch niacin ER 2020-0 Yes Univers 1,000 mg 7-28 ity of tablet 00:00: [place] [address] Medical Branch atenoloL 25 2020-0 Yes Univer s mg tablet 7-28 ity of 00:00: [place] [address] Medical Branch niacin ER 2020-0 Yes Univers 1,000 mg 7-28 ity of tablet 00:00: [place] [address] Medical Branch atenoloL 25 2020-0 Yes Univer s mg tablet 7-28 ity of 00:00: [place] [address] Medical Branch niacin ER 2020-0 Yes Univers 1,000 mg 7-28 ity of tablet 00:00: [place] [address] Medical Branch atenoloL 25 2020-0 Yes Univer s mg tablet 7-28 ity of 00:00: [place] [facility] niacin ER 2020-0 Yes Univers 1,000 mg 7-28 ity of tablet 00:00: [address] atenoloL 25 2020-0 Yes Univer s mg tablet 7-28 ity of 00:00: [address] niacin ER 2020-0 Yes Univers 1,000 mg 7-28 ity of tablet 00:00: [address] atenoloL 25 2020-0 Yes 12.5mg 12.5 mg. Univers mg tablet 7-28 ity of 00:00: [address] niacin ER 2020-0 Yes Univers 1,000 mg 7-28 ity of tablet 00:00: [address] atenoloL 25 2020-0 Yes 12.5mg 12.5 mg. Univers mg tablet 7-28 ity of 00:00: [address] niacin ER 2020-0 Yes Univers 1,000 mg 7-28 ity of tablet 00:00: [address] niacin ER 2020-0 Yes Univers 1,000 mg 7-28 ity of tablet 00:00: [address] niacin ER 2020-0 Yes Univers 1,000 mg 7-28 ity of tablet 00:00: [address] niacin ER 2020-0 Yes Univers 1,000 mg 7-28 ity of tablet 00:00: [address] niacin ER 2020-0 Yes Univers 1,000 mg 7-28 ity of tablet 00:00: [address] niacin ER 2020-0 Yes Univers 1,000 mg 7-28 ity of tablet 00:00: [address] niacin ER 2020-0 Yes Univers 1,000 mg 7-28 ity of tablet 00:00: [address] niacin ER 2020-0 Yes Univers 1,000 mg 7-28 ity of tablet 00:00: [address] niacin ER 2020-0 Yes Univers 1,000 mg 7-28 ity of tablet 00:00: [address] niacin ER 2020-0 Yes Univers 1,000 mg 7-28 ity of tablet 00:00: [address] niacin ER 2020-0 Yes Univers 1,000 mg 7-28 ity of tablet 00:00: [place] 00 Medical Branch atenoloL Yes Univer s mg tablet 05-21 ity of 00:00: [place] 00 Medical Branch niacin ER 2020- No Univers 1,000 mg 05-2111 ity of tablet 00:00: 00:00 [place] 00 :00 Medical Branch atenoloL 25 2020- No 12.5mg 12.5 mg. Univers mg tablet 05-21 0220 ity of 00:00: 00:00 [place] 00 :00 Medical Branch aspirin 0 Yes 81mg Take 81 mg Univ ers (KWAME 6-29 by mouth ity of CHEWABLE 14:54: daily. [place] ASPIRIN) 81 53 Medical mg chewable Branch tablet magnesium 2019-0 Yes 1{capsu Take 1 Uni vers oxide 400 6-29 le} capsule by ity of mg capsule 14:54: mouth [place] 53 daily. Medical Branch tamsulosin Yes tamsulosin U nivers 0.4 mg 24 6-29 0.4 mg ity of hr capsule 14:54: capsule [place] 53 Take 1 Medical capsule Branch every day by oral route as directed for 30 days. watch out for or stop if: headache, dizziness upon standing, or worsened nasal congestion . L.acid/L.ca 0 Yes Take by Uni vers sei/B.bif/B 6-29 mouth. ity of .joanna/FOS 14:54: [place] (PROBIOTIC 53 Medical BLEND ORAL) Branch aspirin 0 Yes 81mg Take 81 mg Univ ers (KWAME 6-29 by mouth ity of CHEWABLE 14:54: daily. [place] ASPIRIN) 81 53 Medical mg chewable Branch tablet magnesium 2020-0 Yes 1{capsu Take 1 Uni vers oxide 400 6-29 le} capsule by ity of mg capsule 14:54: mouth [place] 53 daily. Medical Branch tamsulosin 2019-0 Yes tamsulosin U nivers 0.4 mg 24 6-29 0.4 mg ity of hr capsule 14:54: capsule [place] 53 Take 1 Medical capsule Branch every day by oral route as directed for 30 days. watch out for or stop if: headache, dizziness upon standing, or worsened nasal congestion . L.acid/L.ca 2020-0 Yes Take by Uni vers sei/B.bif/B 6-29 mouth. ity of .joanna/FOS 14:54: [place] (PROBIOTIC 53 Medical BLEND ORAL) Branch aspirin 2020-0 Yes 81mg Take 81 mg Univ ers (KWAME 6-29 by mouth ity of CHEWABLE 14:54: daily. [place] ASPIRIN) 81 53 Medical mg chewable Branch [...] congestion . L.acid/L.ca 2020-0 Yes Take by Uni vers sei/B.bif/B 6-29 mouth. ity of .joanna/FOS 14:54: [place] (PROBIOTIC 53 Medical BLEND ORAL) Branch aspirin 2020-0 Yes 81mg Take 81 mg Univ ers (KWAME 6-29 by mouth ity of CHEWABLE 14:54: daily. [place] ASPIRIN) 81 53 Medical mg chewable Branch [...] congestion . L.acid/L.ca 2020-0 Yes Take by Uni vers sei/B.bif/B 6-29 mouth. ity of .joanna/FOS 14:54: [place] (PROBIOTIC 53 Medical BLEND ORAL) Branch aspirin 2020-0 Yes 81mg Take 81 mg Univ ers (KWAME 6-29 by mouth ity of CHEWABLE 14:54: daily. [place] ASPIRIN) 81 53 Medical mg chewable Branch [...] congestion . L.acid/L.ca 2020-0 Yes Take by Uni vers sei/B.bif/B 6-29 mouth. ity of .joanna/FOS 14:54: [place] (PROBIOTIC 53 Medical BLEND ORAL) Branch aspirin 2020-0 Yes 81mg Take 81 mg Univ ers (KWAME 6-29 by mouth ity of CHEWABLE 14:54: daily. [place] ASPIRIN) 81 53 Medical mg chewable Branch [...] congestion . L.acid/L.ca 2020-0 Yes Take by Uni vers sei/B.bif/B 6-29 mouth. ity of .joanna/FOS 14:54: [place] (PROBIOTIC 53 Medical BLEND ORAL) Branch aspirin 2020-0 Yes 81mg Take 81 mg Univ ers (KWAME 6-29 by mouth ity of CHEWABLE 14:54: daily. [place] ASPIRIN) 81 53 Medical mg chewable Branch [...] congestion . L.acid/L.ca 2020-0 Yes Take by Uni vers sei/B.bif/B 6-29 mouth. ity of .joanna/FOS 14:54: [place] (PROBIOTIC 53 Medical BLEND ORAL) [place] aspirin 2020-0 Yes 81mg Take 81 mg Univ ers (KWAME 04-22 by mouth ity of CHEWABLE 14:54: daily. [place] ASPIRIN) 81 53 Medical mg chewable [place] tablet magnesium 2020-0 Yes 1{capsu Take 1 Uni vers oxide 400 04-22 le} capsule by ity of mg capsule [...] congestion . L.acid/L.ca 2020-0 Yes Take by Uni vers sei/B.bif/B 04-22 mouth. ity of .joanna/FOS 14:54: [place] (PROBIOTIC 53 Medical BLEND ORAL) [place] lactated 2020-0 Yes 500mL at 75 Univers ringers IV 04-22 mL/hr, 500 ity of infusion 14:30: mL, IV [place] 500 mL 00 Infusion, Medical CONTINUOUS [place] , Starting 04/22/20 at 0930, Until Discontinu ed, Routine, PACU iohexol 2020-0 Yes PRN, Univers (OMNIPAQUE 04-22 Starting ity o f 300-50 mL)) 14:00: [facility] injection 04/22/[address] Until Discontinu ed, Routine, Intra-op lidocaine 2020-0 Yes PRN, Univers 1% (PF) 04-22 Starting ity of (XYLOCAINE) 14:00: [facility] injection 04/22/[address] Until Discontinu ed, Routine, Intra-op NaCl 0.9% 2020-0 Yes PRN, Univers (NS) 04-22 Starting ity of injection 14:00: [facility] 04/22/[address] Until Discontinu ed, Routine, Intra-op bupivacaine 2020-0 Yes PRN, Univer s (preserv 04-22 Starting ity of free) 13:59: [facility] (SENSORCAIN 04/22/20 at [facility] E MP) 0.[address] [place] [address] % (2.5 Intra-op mg/mL) 2 mL, lidocaine 1% (PF) (XYLOCAINE) 2 mL, triamcinolo ne acetonide (KENALOG) 80 mg lactated 2020-0 2020- No 1000mL at 20 Unive rs ringers IV 04-22 mL/hr, ity of infusion 13:00: 13:19 1,000 mL, [place] 1,000 mL 00 :00 IV Medical Infusion, Branch ONCE, 1 dose, 04/22/20 at 0800, Routine, DSU Pre-op L.acid/L.ca 2020-0 Yes Take by Uni vers sei/B.bif/B 04-22 mouth. ity of .joanna/FOS 12:56: [place] (PROBIOTIC 51 Medical BLEND ORAL) Branch L.acid/L.ca 2020-0 Yes Take by Uni vers sei/B.bif/B 04-16 mouth. ity of .joanna/FOS 19:35: [place] (PROBIOTIC 47 Medical BLEND ORAL) Branch L.acid/L.ca 2020-0 Yes Take by Uni vers sei/B.bif/B 04-16 mouth. ity of .joanna/FOS 19:35: [place] (PROBIOTIC 47 Medical BLEND ORAL) Branch L.acid/L.ca 2020-0 Yes Take by Uni vers sei/B.bif/B 04-16 mouth. ity of .joanna/FOS 19:35: [place] (PROBIOTIC 47 Medical BLEND ORAL) Branch L.acid/L.ca 2020-0 Yes Take by Uni vers sei/B.bif/B 04-16 mouth. ity of .joanna/FOS 19:35: [place] (PROBIOTIC 47 Medical BLEND ORAL) Branch L.acid/L.ca 2020-0 Yes Take by Uni vers sei/B.bif/B 04-16 mouth. ity of .joanna/FOS 19:35: [place] (PROBIOTIC 47 Medical BLEND ORAL) Branch nisoldipine 2020-0 2020- No 17mg Take 17 mg Univers 17 mg 24 hr 04-16 by mouth ity of tablet 19:35: 00:00 daily. [place] 26 :00 Medical Branch aspirin 2020-0 Yes 81mg Take 81 mg Univ ers (KWAME 04-16 by mouth ity of CHEWABLE 19:33: daily. [place] ASPIRIN) 81 49 Medical mg chewable Branch [...] by mouth ity of CHEWABLE 19:33: daily. [place] ASPIRIN) 81 49 Medical mg chewable Branch [...] by mouth ity of CHEWABLE 19:33: daily. [place] ASPIRIN) 81 49 Medical mg chewable Branch [...] by mouth ity of CHEWABLE 19:33: daily. [place] ASPIRIN) 81 49 Medical mg chewable Branch [...] by mouth ity of CHEWABLE 19:33: daily. [place] ASPIRIN) 81 49 Medical mg chewable Branch [...] by mouth ity of CHEWABLE 19:33: daily. [place] ASPIRIN) 81 49 Medical mg chewable Branch [...] (preserv 04-02 ity of free) 18:30: 17:27 [place] (SENSORCAIN 00 :00 Medical E MPF) 0.25 Branch % (2.5 mg/mL) injection 5 mL lidocaine 2019-0 2020- No 4mL Univers 1% (PF) 04-02 [...] ity of free) 18:30: 17:27 on, ONCE, [place] (SENSORCAIN 00 :00 1 dose, Medic al E MPF) 0.25 04/02/20 Br anch % (2.5 at 1330, mg/mL) Routine injection 5 mL dexamethaso 2020-0 2020- No 10mg 10 mg, Uni vers ne sod phos 04-02 Intramuscu i ty of PF 18:30: 17:27 lar, ONCE, [place] injection 00 :00 1 dose, Medical 10 mg 04/02/20 Branch at 1330, Routine dexamethaso 2020-0 2020- No 10mg Unive rs ne sod phos 04-02 ity of PF 18:30: 17:27 [place] injection 00 :00 Medical 10 mg Branch bupivacaine 2020-0 2020- No 5mL Unive rs (preserv 04-02 ity of free) 18:30: 17:27 [place] (SENSORCAIN 00 :00 Medical E MPF) 0.25 Branch % (2.5 mg/mL) injection 5 mL lidocaine 2020-0 2020- No 4mL Univers 1% (PF) 04-02 ity of (XYLOCAINE) 18:30: 17:27 [place] injection 4 00 :00 Medical mL Branch lidocaine 2020-0 2020- No 4mL 4 mL, Univer s 1% (PF) 04-02 Infiltrati ity o f (XYLOCAINE) 18:30: 17:27 on, ONCE, [place] injection 4 00 :00 1 dose, Medic al mL 04/02/20 Branch at 1330, Routine bupivacaine 2020-0 2020- No 5mL 5 mL, Univ ers (preserv 04-02 Infiltrati ity of free) 18:30: 17:27 on, ONCE, [place] (SENSORCAIN 00 :00 1 dose, Medic al E MPF) 0.25 04/02/20 Br anch % (2.5 at 1330, mg/mL) Routine injection 5 mL dexamethaso 2020-0 2020- No 10mg 10 mg, Uni vers ne sod phos 04-02- Intramuscu i ty of PF 18:30: 17:27 lar, ONCE, [place] injection 00 :00 1 dose, Medical 10 mg 04/02/20 Branch at 1330, Routine cyclobenzap 2020-0 Yes [id number] 7.5mg Take 1 Univers rine 7.5 mg 6-09 tablet by ity of tablet 00:00: mouth 3 [place] (three) Medical times Branch daily as needed for Muscle Spasms. cyclobenzap 2020-0 Yes [id number] 7.5mg Take 1 [facility] rine 7.5 mg 6-09 tablet by ity of tablet 00:00: mouth [place] (three) Medical times Branch daily as needed for Muscle Spasms. cyclobenzap 2020-0 Yes [id number] 7.5mg Take 1 Univers rine 7.5 mg 6-09 tablet by ity of tablet 00:00: mouth [place] (three) Medical times Branch daily as needed for Muscle Spasms. cyclobenzap 2020-0 Yes [id number] 7.5mg Take 1 Univers rine 7.5 mg 6-09 tablet by ity of tablet 00:00: mouth 3 [place] (three) Medical times Branch daily as needed for Muscle Spasms. cyclobenzap 2020-0 Yes [id number] 7.5mg Take 1 [facility] rine 7.5 mg 6-09 tablet by ity of tablet 00:00: mouth 3 [place] (three) Medical times Branch daily as needed for Muscle Spasms. cyclobenzap 2020-0 Yes [id number] 7.5mg Take 1 [facility] rine 7.5 mg 6-09 tablet by ity of tablet 00:00: mouth 3 [place] (three) Medical times Branch daily as needed for Muscle Spasms. cyclobenzap 2020-0 Yes [id number] 7.5mg Take 1 [facility] rine 7.5 mg 6-09 tablet by ity of tablet 00:00: mouth 3 [place] (three) Medical times Branch daily as needed for Muscle Spasms. cyclobenzap 2020-0 Yes [id number] 7.5mg Take 1 [facility] rine 7.5 mg 6-09 tablet by ity of tablet 00:00: mouth 3 (three) Medical times Branch daily as needed for Muscle Spasms. cyclobenzap 2020-0 Yes [id number] 7.5mg Take 1 [facility] rine 7.5 mg 6-09 tablet by ity of tablet 00:00: mouth 3 (three) Medical times Branch daily as needed for Muscle Spasms. cyclobenzap 2020-0 Yes [id number] 7.5mg Take 1 [facility] rine 7.5 mg 6-09 tablet by ity of tablet 00:00: mouth 3 (three) Medical times Branch daily as needed for Muscle Spasms. cyclobenzap 2020-0 Yes [id number] 7.5mg Take 1 [facility] rine 7.5 mg 6-09 tablet by ity of tablet 00:00: mouth 3 (three) Medical times Branch daily as needed for Muscle Spasms. cyclobenzap 2020-0 Yes [id number] 7.5mg Take 1 [facility] rine 7.5 mg 6-09 tablet by ity of tablet 00:00: mouth 3 (three) Medical times Branch daily as needed for Muscle Spasms. cyclobenzap 2020-0 Yes [id number] 7.5mg Take 1 [facility] rine 7.5 mg 6-09 tablet by ity of tablet 00:00: mouth 3 (three) Medical times Branch daily as needed for Muscle Spasms. cyclobenzap 2020-0 Yes [id number] 7.5mg Take 1 [facility] rine 7.5 mg 6-09 tablet by ity of tablet 00:00: mouth 3 (three) Medical times Branch daily as needed for Muscle Spasms. cyclobenzap 2020-0 Yes [id number] 7.5mg Take 1 [facility] rine 7.5 mg 6-09 tablet by ity of tablet 00:00: mouth 3 (three) Medical times Branch daily as needed for Muscle Spasms. cyclobenzap 2020-0 Yes [id number] 7.5mg Take 1 [facility] rine 7.5 mg 6-09 tablet by ity of tablet 00:00: mouth 3 (three) Medical times Branch daily as needed for Muscle Spasms. cyclobenzap 2020-0 Yes [id number] 7.5mg Take 1 [facility] rine 7.5 mg 6-09 tablet by ity of tablet 00:00: mouth 3 [place] 00 (three) Medical times Branch daily as needed for Muscle Spasms. cyclobenzap 2020-0 2020- No [id number] 7.5mg Take 1 [facility] rine 7.5 mg 6-07 03- tablet by it y of tablet 00:00: 00:00 mouth 3 [place] 00 :00 (three) Medical times Branch daily as needed for Muscle Spasms. cyclobenzap 2020-0 2020- No [id number] 7.5mg Take 1 [facility] rine 7.5 mg 6-06-25 tablet by it y of tablet 00:00: 00:00 mouth 3 [place] 00 :00 (three) Medical times Branch daily as needed for Muscle Spasms. CYCLOBENZAP 2020-0 Yes [id number] TAKE 1 [facility] RINE 5 mg 5-20 TABLET BY ity o f tablet 00:00: MOUTH [place] 00 THREE Medical TIMES Branch DAILY CYCLOBENZAP 2020-0 Yes [id number] TAKE 1 [facility] RINE 5 mg 5-20 TABLET BY ity o f tablet 00:00: MOUTH [place] 00 THREE Medical TIMES Branch DAILY CYCLOBENZAP 2020-0 2020- No [id number] TAKE 1 [facility] RINE 5 mg 5-20 06-09 TABLET BY ity of tablet 00:00: 00:00 MOUTH [place] 00 :00 THREE Medical TIMES Branch DAILY CYCLOBENZAP 2020-0 2020- No [id number] TAKE 1 [facility] RINE 5 mg 5-20 06-09 TABLET BY ity of tablet 00:00: 00:00 [facility] 00 :00 THREE Medical TIMES Branch DAILY butalbital- 2020-0 Yes TK 1 T PO U nivers acetaminoph 5-19 Q 6 H ity of en-caff 00:00: [place] 50-325-40 00 Medical mg tablet Branch butalbital- 2020-0 Yes TK 1 T PO U nivers acetaminoph 5-19 Q 6 H ity of en-caff 00:00: [place] 50-325-40 00 Medical mg tablet Branch butalbital- 2020-0 Yes TK 1 T PO U nivers acetaminoph 5-19 Q 6 H ity of en-caff 00:00: [place] 50-325-40 00 Medical mg tablet Branch butalbital- 2020-0 Yes TK 1 T PO U nivers acetaminoph 5-19 Q 6 H ity of en-caff 00:00: [place] 50-325-40 00 Medical mg tablet Branch butalbital- 2020-0 Yes TK 1 T PO U nivers acetaminoph 5-19 Q 6 H ity of en-caff 00:00: [place] 50-325-40 00 Medical mg tablet Branch butalbital- 2020-0 Yes TK 1 T PO U nivers acetaminoph 5-19 Q 6 H ity of en-caff 00:00: [place] 50-325-40 00 Medical mg tablet Branch butalbital- 2020-0 Yes TK 1 T PO U nivers acetaminoph 5-19 Q 6 H ity of en-caff 00:00: [place] 50-325-40 00 Medical mg tablet Branch butalbital- 2020-0 Yes TK 1 T PO U nivers acetaminoph 5-19 Q 6 H ity of en-caff 00:00: [place] 50-325-40 00 Medical mg tablet Branch butalbital- 2020-0 Yes TK 1 T PO U nivers acetaminoph 5-19 Q 6 H ity of en-caff 00:00: [place] 50-325-40 00 Medical mg tablet Branch butalbital- 2020-0 Yes TK 1 T PO U nivers acetaminoph 5-19 Q 6 H ity of en-caff 00:00: [place] 50-325-40 00 Medical mg tablet Branch butalbital- 2020-0 Yes TK 1 T PO U nivers acetaminoph 5-19 Q 6 H ity of en-caff 00:00: [place] 50-325-40 00 Medical mg tablet Branch butalbital- 2020-0 Yes TK 1 T PO U nivers acetaminoph 5-19 Q 6 H ity of en-caff 00:00: [place] 50-325-40 00 Medical mg tablet Branch butalbital- 2020-0 Yes TK 1 T PO U nivers acetaminoph 5-19 Q 6 H ity of en-caff 00:00: [place] 50-325-40 00 Medical mg tablet Branch butalbital- 2020-0 Yes TK 1 T PO U nivers acetaminoph 5-19 Q 6 H ity of en-caff 00:00: [place] 50-325-40 00 Medical mg tablet Branch butalbital- 2020-0 Yes TK 1 T PO U nivers acetaminoph 5-19 Q 6 H ity of en-caff 00:00: [place] 50-325-40 00 Medical mg tablet Branch butalbital- 2020-0 Yes TK 1 T PO U nivers acetaminoph 5-19 Q 6 H ity of en-caff 00:00: [place] 50-325-40 00 Medical mg tablet Branch butalbital- 2020-0 Yes TK 1 T PO U nivers acetaminoph 5-19 Q 6 H ity of en-caff 00:00: [place] 50-325-40 00 Medical mg tablet Branch butalbital- 2020-0 Yes TK 1 T PO U nivers acetaminoph 5-19 Q 6 H ity of en-caff 00:00: [place] 50-325-40 00 Medical mg tablet Branch butalbital- 2020-0 Yes TK 1 T PO U nivers acetaminoph 5-19 Q 6 H ity of en-caff 00:00: [place] 50-325-40 00 Medical mg tablet Branch butalbital- 2020-0 Yes TK 1 T PO U nivers acetaminoph 5-19 Q 6 H ity of en-caff 00:00: [place] 50-325-40 00 Medical mg tablet Branch butalbital- 2020-0 Yes TK 1 T PO U nivers acetaminoph 5-19 Q 6 H ity of en-caff 00:00: [place] 50-325-40 00 Medical mg tablet Branch butalbital- 2020-0 Yes TK 1 T PO U nivers acetaminoph 5-19 Q 6 H ity of en-caff 00:00: [place] 50-325-40 00 Medical mg tablet Branch butalbital- 2020-0 Yes TK 1 T PO U nivers acetaminoph 5-19 Q 6 H ity of en-caff 00:00: [place] 50-325-40 00 Medical mg tablet Branch butalbital- 2020-0 Yes TK 1 T PO U nivers acetaminoph 5-19 Q 6 H ity of en-caff 00:00: [place] 50-325-40 00 Medical mg tablet Branch butalbital- 2020-0 Yes TK 1 T PO U nivers acetaminoph 5-19 Q 6 H ity of en-caff 00:00: [place] 50-325-40 00 Medical mg tablet Branch butalbital- 2020-0 Yes TK 1 T PO U nivers acetaminoph 5-19 Q 6 H ity of en-caff 00:00: [place] 50-325-40 00 Medical mg tablet Branch butalbital- 2020-0 Yes TK 1 T PO U nivers acetaminoph 5-19 Q 6 H ity of en-caff 00:00: [place] 50-325-40 00 Medical mg tablet Branch butalbital- 2020-0 Yes TK 1 T PO U nivers acetaminoph 5-19 Q 6 H ity of en-caff 00:00: [place] 50-325-40 00 Medical mg tablet Branch butalbital- 2020-0 Yes TK 1 T PO U nivers acetaminoph 5-19 Q 6 H ity of en-caff 00:00: [place] 50-325-40 00 Medical mg tablet Branch butalbital- 2020-0 Yes TK 1 T PO U nivers acetaminoph 5-19 Q 6 H ity of en-caff 00:00: [place] 50-325-40 00 Medical mg tablet Branch butalbital- 2020-0 Yes TK 1 T PO U nivers acetaminoph 5-19 Q 6 H ity of en-caff 00:00: [place] 50-325-40 00 Medical mg tablet Branch butalbital- 2020-0 Yes TK 1 T PO U nivers acetaminoph 5-19 Q 6 H ity of en-caff 00:00: [place] 50-325-40 00 Medical mg tablet Branch butalbital- 2020-0 Yes TK 1 T PO U nivers acetaminoph 5-19 Q 6 H ity of en-caff 00:00: [place] 50-325-40 00 Medical mg tablet Branch butalbital- 2020-0 Yes TK 1 T PO U nivers acetaminoph 5-19 Q 6 H ity of en-caff 00:00: [place] 50-325-40 00 Medical mg tablet Branch butalbital- 2020-0 Yes TK 1 T PO U nivers acetaminoph 5-19 Q 6 H ity of en-caff 00:00: [place] 50-325-40 00 Medical mg tablet Branch butsdbital- 2020-0 Yes TK 1 T PO U nivers acetaminoph 5-19 Q 6 H ity of en-caff 00:00: [place] 50-325-40 00 Medical mg tablet Branch butsdbital- 2020-0 Yes TK 1 T PO U nivers acetaminoph 5-19 Q 6 H ity of en-caff 00:00: [place] 50-325-40 00 Medical mg tablet Branch butsdbital- 2020-0 Yes TK 1 T PO U nivers acetaminoph 5-19 Q 6 H ity of en-caff 00:00: [place] 50-325-40 00 Medical mg tablet Branch butsdbital- 2020-0 Yes TK 1 T PO U nivers acetaminoph 5-19 Q 6 H ity of en-caff 00:00: [place] 50-325-40 00 Medical mg tablet Branch butsdbital- 2020-0 Yes TK 1 T PO U nivers acetaminoph 5-19 Q 6 H ity of en-caff 00:00: [place] 50-325-40 00 Medical mg tablet Branch butsdbital- 2020-0 Yes TK 1 T PO U nivers acetaminoph 5-19 Q 6 H ity of en-caff 00:00: [place] 50-325-40 00 [facility] TK 1 T PO U nivers acetaminoph 5-19 Q 6 H ity of en-caff 00:00: [place] 50-325-40 00 Medical mg tablet Branch butsdbital- 2020-0 Yes TK 1 T PO U nivers acetaminoph 5-19 Q 6 H ity of en-caff 00:00: [place] 50-325-40 00 Medical mg tablet Branch butsdbital- 2020-0 Yes TK 1 T PO U nivers acetaminoph 5-19 Q 6 H ity of en-caff 00:00: [place] 50-325-40 00 Medical mg tablet Branch butsdbital- 2020-0 Yes TK 1 T PO U nivers acetaminoph 5-19 Q 6 H ity of en-caff 00:00: [place] 50-325-40 00 Medical mg tablet Branch butalbital- 2020-0 Yes TK 1 T PO U nivers acetaminoph 5-19 Q 6 H ity of en-caff 00:00: [place] 50-325-40 00 Medical mg tablet Branch butalbital- 2020-0 2020- No TK 1 T PO Univers acetaminoph 19 -11 Q 6 H ity of en-caff 00:00: 00:00 [place] 50-325-40 00 :00 Medical mg tablet Branch cyclobenzap 2020-0 Yes [id number] 5mg Take 1 Univers rine 5 mg 4-15 tablet by ity o f tablet 00:00: mouth 3 [place] 00 (three) Medical times Branch daily. cyclobenzap 2020-0 Yes [id number] 5mg Take 1 Univers rine 5 mg 4-15 tablet by ity o f tablet 00:00: mouth 3 [place] 00 (three) Medical times Branch daily. cyclobenzap 2019-0 2020- No [id number] 5mg Take 1 Univers rine 5 mg 4-15 05-20 tablet by ity of tablet 00:00: 00:00 mouth 3 [place] 00 :00 (three) Medical times Branch daily. aspirin 2020-0 Yes 81mg Take 81 mg Univ ers (KWAME 3-16 by mouth ity of CHEWABLE 15:22: daily. [place] ASPIRIN) 81 03 Medical mg chewable Branch tablet magnesium 2020-0 Yes 1{capsu Take 1 Uni vers oxide 400 3-16 le} capsule by ity of mg capsule 15:22: mouth [place] 03 daily. Medical Branch nisoldipine 2020-0 Yes 17mg Take 17 mg Univers 17 mg 24 hr 3-16 by mouth ity of tablet 15:22: daily. [place] 03 Medical Branch tamsulosin 2020-0 Yes tamsulosin [...] by mouth ity of CHEWABLE 15:22: daily. [place] ASPIRIN) 81 03 Medical mg chewable Branch tablet magnesium 2020-0 Yes 1{capsu Take 1 Uni vers oxide 400 3-16 le} capsule by ity of mg capsule 15:22: mouth [place] 03 daily. Medical Branch nisoldipine 2020-0 Yes 17mg Take 17 mg Univers 17 mg 24 hr 3-16 by mouth ity of tablet 15:22: daily. [place] Medical Branch tamsulosin 2020-0 Yes tamsulosin U [...] by mouth ity of CHEWABLE 15:22: daily. [place] ASPIRIN) 81 03 Medical mg chewable Branch tablet magnesium 2020-0 Yes 1{capsu Take 1 Uni vers oxide 400 3-16 le} capsule by ity of mg capsule 15:22: mouth daily. Medical Branch nisoldipine 2020-0 Yes 17mg Take 17 mg Univers 17 mg 24 hr 3-16 by mouth ity of tablet 15:22: daily. [place] [address] Medical Branch tamsulosin 2020-0 Yes tamsulosin U [...] by mouth ity of CHEWABLE 15:22: daily. [place] ASPIRIN) 81 03 Medical mg chewable Branch tablet magnesium 2020-0 Yes 1{capsu Take 1 Uni vers oxide 400 3-16 le} capsule by ity of mg capsule 15:22: mouth daily. Medical Branch nisoldipine 2020-0 Yes 17mg Take 17 mg Univers 17 mg 24 hr 3-16 by mouth ity of tablet 15:22: daily. [place] [address] Medical Branch tamsulosin 2020-0 Yes tamsulosin U [...] by mouth ity of CHEWABLE 15:22: daily. [place] ASPIRIN) 81 03 Medical mg chewable Branch [...] by mouth ity of CHEWABLE 15:22: daily. [place] ASPIRIN) 81 03 Medical mg chewable Branch tablet magnesium 2020-0 Yes 1{capsu Take 1 Uni vers oxide 400 3-16 le} capsule by ity of mg capsule 15:22: mouth [place] 03 daily. Medical Branch nisoldipine 2020-0 Yes 17mg Take 17 mg Univers 17 mg 24 hr 3-16 by mouth ity of tablet 15:22: daily. [place] Medical Branch tamsulosin 2020-0 Yes tamsulosin U [...] by mouth ity of CHEWABLE 15:22: daily. [place] ASPIRIN) 81 03 Medical mg chewable Branch tablet magnesium 2020-0 Yes 1{capsu Take 1 Uni vers oxide 400 3-16 le} capsule by ity of mg capsule 15:22: mouth [place] 03 daily. Medical Branch nisoldipine 2020-0 Yes 17mg Take 17 mg Univers 17 mg 24 hr 3-16 by mouth ity of tablet 15:22: daily. [place] Medical Branch tamsulosin 2020-0 Yes tamsulosin U [...] Starting ity o f 300-50 mL)) 14:28: [facility] injection 01/08/20 at [facility] 0928, Branch Until Discontinu ed, Routine, Intra-op triamcinolo 2020-0 Yes PRN, Univer s ne 3-16 Starting ity of acetonide 14:07: [facility] (KENALOG) 01/08/20 at [facility] injection 0907, Branch Until Discontinu ed, Routine, Intra-op NaCl 0.9% 2020-0 Yes PRN, Univers (NS) 3-16 Starting ity of injection 14:05: [facility] 01/08/20 at [facility] 0905, Branch Until Discontinu ed, Routine, Intra-op lidocaine 2020-0 Yes PRN, Univers 1% (PF) 3-16 Starting ity of (XYLOCAINE) 14:05: [facility] injection 01/08/20 at [facility] 0905, [place] Until Discontinu ed, Routine, Intra-op bupivacaine 2020-0 Yes PRN, Univer s (preserv 3-16 Starting ity of free) 14:04: [facility] (SENSORCAIN 01/08/20 at [facility]) 0.[address] [place] [address] % (2.5 Until mg/mL) Discontinu injection ed, Routine, Intra-op metoprolol 2020-0 2020- No metoprolol Univers diaz/hydrochl 12-28- diaz-hydroch i ty of orothiaz 19:55: 00:00 lorothiaz [place] (DUTOPROL 59 :00 Medical ORAL) Branch cyclobenzap 2019-0 2020- No cyclobenza Univers rine 5 mg 12-28-06 stephania 5 mg ity of tablet 19:55: 00:00 tablet [place] 59 :00 Medical Branch cyclobenzap 2019-0 Yes [id number] 5mg Take 1 Univers rine 5 mg 2-18 tablet by ity o f tablet 00:00: mouth 3 [place] 00 (three) Medical times Branch daily. cyclobenzap 2020-0 Yes [id number] 5mg Take 1 Univers rine 5 mg 2-18 tablet by ity o f tablet 00:00: mouth 3 [place] 00 (three) Medical times Branch daily. cyclobenzap 2020-0 Yes [id number] 5mg Take 1 Univers rine 5 mg 2-18 tablet by ity o f tablet 00:00: mouth 3 [place] 00 (three) Medical times Branch daily. cyclobenzap 2020-0 Yes [id number] 5mg Take 1 [facility] rine 5 mg 2-18 tablet by ity o f tablet 00:00: mouth 3 [place] 00 (three) Medical times Branch daily. cyclobenzap 2019-0 2020- No [id number] 5mg Take 1 Univers rine 5 mg 2-18 04-15 tablet by ity of tablet 00:00: 00:00 mouth 3 [place] 00 :00 ([facility]) Medical times Branch daily. tamsulosin 2019- 2020- No TK 1 C PO U nivers 0.4 mg 24 2-18 03-06 QD UTD ity of hr capsule 00:00: 00:00 [place] 00 :00 [facility] Branch cyclobenzap 2019-0 Yes cyclobenza Univers rine 5 mg 2-15 stephania 5 mg ity of tablet 01:55: tablet [address] cyclobenzap 2020-0 Yes cyclobenza Univers rine 5 mg 2-15 stephania 5 mg ity of tablet 01:55: tablet [address] cyclobenzap 2020-0 Yes cyclobenza Univers rine 5 mg 2-15 stephania 5 mg ity of tablet 01:55: tablet [address] cyclobenzap 2020-0 Yes cyclobenza Univers rine 5 mg 2-15 stephania 5 mg ity of tablet 01:55: tablet [address] metoprolol 2019-0 Yes metoprolol U nivers diaz/hydrochl 2-15 diaz-hydroch it y of orothiaz 01:54: [place] (DUTOPROL 50 Medical ORAL) Branch metoprolol 2019-0 Yes metoprolol U nivers diaz/hydrochl 2-15 diaz-hydroch it y of orothiaz 01:54: [place] (DUTOPROL 50 Medical ORAL) Branch metoprolol 2019-0 Yes metoprolol U nivers diaz/hydrochl 2-15 diaz-hydroch it y of orothiaz 01:54: [place] (DUTOPROL 50 Medical ORAL) Branch metoprolol 2019-0 Yes metoprolol U nivers diaz/hydrochl 2-15 diaz-hydroch it y of orothiaz 01:54: [place] (DUTOPROL 50 Medical ORAL) Branch loratadine 2019-0 Yes [id number] 10mg Take 1 U nivers (CLARITIN) 2-14 tablet by ity of 10 mg 00:00: mouth [place] tablet 00 daily. Medical Branch fluticasone 2019-0 Yes [id number] 2{spray Use 2 Univers propionate 2-14 } Sprays in ity of 50 00:00: each [place] mcg/actuati 00 nostril Medic al on nasal daily. Branch spray loratadine 2019-0 Yes [id number] 10mg Take 1 U nivers (CLARITIN) 2-14 tablet by ity of 10 mg 00:00: mouth [place] tablet 00 daily. Medical Branch fluticasone 2019-0 Yes [id number] 2{spray Use 2 Univers propionate 2-14 } Sprays in ity of 50 00:00: each [place] mcg/actuati 00 nostril Medic al on nasal daily. Branch spray loratadine 2019-0 Yes [id number] 10mg Take 1 U nivers (CLARITIN) 2-14 tablet by ity of 10 mg 00:00: mouth [place] tablet 00 daily. Medical Branch fluticasone 2019-0 Yes [id number] 2{spray Use 2 [facility] propionate 2-14 } Sprays in ity of 50 00:00: each [place] mcg/actuati 00 nostril Medic al on nasal daily. Branch spray loratadine 2019-0 Yes [id number] 10mg Take 1 U nivers (CLARITIN) 2-14 tablet by ity of 10 mg 00:00: mouth [place] tablet 00 daily. Medical Branch fluticasone 2019-0 Yes [id number] 2{spray Use 2 [facility] propionate 2-14 } Sprays in ity of 50 00:00: each [place] mcg/actuati 00 nostril Medic al on nasal daily. Branch spray loratadine 2020-0 Yes [id number] 10mg Take 1 U nivers (CLARITIN) 2-14 tablet by ity of 10 mg 00:00: mouth [place] tablet 00 daily. Medical Branch fluticasone 2020-0 Yes [id number] 2{spray Use 2 [facility] propionate 2-14 } Sprays in ity of 50 00:00: each [place] mcg/actuati 00 nostril Medic al on nasal daily. Branch spray loratadine 2020-0 Yes [id number] 10mg Take 1 U nivers (CLARITIN) 2-14 tablet by ity of 10 mg 00:00: mouth [place] tablet 00 daily. Medical Branch fluticasone 2020-0 Yes [id number] 2{spray Use 2 [facility] propionate 2-14 } Sprays in ity of 50 00:00: each [place] mcg/actuati 00 nostril Medic al on nasal daily. Branch spray loratadine 2020-0 Yes [id number] 10mg Take 1 U nivers (CLARITIN) 2-14 tablet by ity of 10 mg 00:00: mouth [place] tablet 00 daily. Medical Branch fluticasone 2020-0 Yes [id number] 2{spray Use 2 [facility] propionate 2-14 } Sprays in ity of 50 00:00: each [place] mcg/actuati 00 nostril Medic al on nasal daily. Branch spray loratadine 2020-0 Yes [id number] 10mg Take 1 U nivers (CLARITIN) 2-14 tablet by ity of 10 mg 00:00: mouth [place] tablet 00 daily. Medical [place] fluticasone 2020-0 Yes [id number] 2{spray Use 2 Univers propionate 2-14 } Sprays in ity of 50 00:00: each [place] mcg/actuati 00 nostril Medic al on nasal daily. Branch spray loratadine 2020-0 Yes [id number] 10mg Take 1 U nivers (CLARITIN) 2-14 tablet by ity of 10 mg 00:00: mouth [place] tablet 00 daily. Medical Branch fluticasone 2020-0 Yes [id number] 2{spray Use 2 [facility] propionate 2-14 } Sprays in ity of 50 00:00: each [place] mcg/actuati 00 nostril Medic al on nasal daily. Branch spray loratadine 2020-0 Yes [id number] 10mg Take 1 U nivers (CLARITIN) 2-14 tablet by ity of 10 mg 00:00: mouth [place] tablet 00 daily. Medical Branch fluticasone 2019-0 Yes [id number] 2{spray Use 2 [facility] propionate 2-14 } Sprays in ity of 50 00:00: each [place] mcg/actuati 00 nostril Medic al on nasal daily. Branch spray loratadine 2019-0 Yes [id number] 10mg Take 1 U nivers (CLARITIN) 2-14 tablet by ity of 10 mg 00:00: mouth [place] tablet 00 daily. Medical Branch fluticasone 2019-0 Yes [id number] 2{spray Use 2 [facility] propionate 2-14 } Sprays in ity of 50 00:00: each [place] mcg/actuati 00 nostril Medic al on nasal daily. Branch spray loratadine 2019-0 2020- No [id number] 10mg Take 1 Univers (CLARITIN) 2-14 06-23 tablet by ity of 10 mg 00:00: 00:00 mouth [place] tablet 00 :00 daily. [facility] Branch fluticasone 2019- 2020- No [id number] 2{spray Use 2 Univers propionate 2-14 -23 } Sprays in ity of 50 00:00: 00:00 each [place] mcg/actuati 00 :00 nostril Medic al on nasal daily. Branch spray acetaminoph 2020- No [id number] .5{tbl} Take 0.5-1 Univers en-codeine 2-14 02-18 tablets by it y of 300-30 mg 00:00: 05:59 mouth [place] tablet 00 :00 every 6 Medical (six) Branch hours as needed for Pain (scale 7-10) for up to 3 days. nisoldipine 2019-0 Yes 17mg Take 17 mg Univers 17 mg 24 hr 2-04 by mouth ity of tablet 15:30: daily. [address] nisoldipine 2020-0 Yes 17mg Take 17 mg Univers 17 mg 24 hr 2-04 by mouth ity of tablet 15:30: daily. [address] nisoldipine 2020-0 Yes 17mg Take 17 mg Univers 17 mg 24 hr 2-04 by mouth ity of tablet 15:30: daily. [address] nisoldipine 2020-0 Yes 17mg Take 17 mg Univers 17 mg 24 hr 2-04 by mouth ity of tablet 15:30: daily. [address] nisoldipine 2020-0 Yes 17mg Take 17 mg Univers 17 mg 24 hr 2-04 by mouth ity of tablet 15:30: daily. [address] nisoldipine Yes 17mg Take 17 mg Univers 17 mg 24 hr 2-04 by mouth ity of tablet 15:30: daily. [address] nisoldipine Yes 17mg Take 17 mg Univers 17 mg 24 hr 2-04 by mouth ity of tablet 15:30: daily. [address] nisoldipine Yes 17mg Take 17 mg Univers 17 mg 24 hr 2-04 by mouth ity of tablet 15:30: daily. [address] nisoldipine Yes 17mg Take 17 mg Univers 17 mg 24 hr 2-04 by mouth ity of tablet 15:30: daily. [address] metoprolol 2018-10 Yes metoprolol U nivers [...] by mouth ity of CHEWABLE 15:39: daily. [place] ASPIRIN) 81 55 Medical mg chewable Branch [...] 55 Medical mg chewable Branch tablet magnesium 2019-0 Yes 1{capsu Take 1 Uni vers oxide 400 7-17 le} capsule by ity of mg capsule 15:39: mouth [place] 55 daily. Medical Branch aspirin [id number] Yes 81mg Take 81 mg Univ ers (KWAME 7-17 by mouth ity of CHEWABLE 15:39: daily. [place] ASPIRIN) 81 55 Medical mg chewable Branch tablet magnesium 2019-0 Yes 1{capsu Take 1 Uni vers oxide 400 7-17 le} capsule by ity of mg capsule 15:39: mouth [place] 55 daily. Medical Branch aspirin Yes 81mg Take 81 mg Univ ers (KWAME 7-17 by mouth ity of CHEWABLE 15:39: daily. [place] ASPIRIN) 81 55 Medical mg chewable Branch tablet magnesium 2019- Yes 1{capsu Take 1 Uni vers oxide 400 7-17 le} capsule by ity of mg capsule 15:39: mouth [place] 55 daily. Medical Branch aspirin Yes 81mg Take 81 mg Univ ers (KWAME 7-17 by mouth ity of CHEWABLE 15:39: daily. [place] ASPIRIN) 81 55 Medical mg chewable Branch tablet magnesium 2018- Yes 1{capsu Take 1 Uni vers oxide 400 7-17 le} capsule by ity of mg capsule 15:39: mouth [place] 55 daily. Medical Branch butalbital- Yes [id number] 1{tbl} Take 1 [facility] acetaminoph 5-24 tablet by ity of en-caff 00:00: mouth [place] (ESGIC) 00 every 6 Medical 50-325-40 (six) Branch mg tablet hours as needed. lidocaine 5 Yes [id number] 1{patch Apply 1 [facility] % (700 5-24 07 } Patch to ity of mg/patch) 00:00: area(s) [place] patch 00 every 8 Medical (eight) Branch hours as needed for Localized pain. methocarbam Yes [id number] 750mg Take 1 [facility] ol 750 mg 5-24 tablet by ity o f tablet 00:00: mouth 4 [place] 00 (four) Medical times Branch daily. donepezil Yes [id number] 10mg Take 1 [facility] 10 mg 5-24 tablet by ity of disintegrat 00:00: [place] tablet 00 bedtime. Medic al Branch butalbital- Yes [id number] 1{tbl} Take 1 [facility] acetaminoph 5-24 tablet by ity of en-caff 00:00: mouth [place] (ESGIC) 00 every 6 Medical 50-325-40 (six) Branch mg tablet hours as needed. lidocaine 5 Yes [id number] 1{patch Apply 1 [facility] % (700 5-24 07 } Patch to ity of mg/patch) 00:00: area(s) [place] patch 00 every 8 Medical (eight) Branch hours as needed for Localized pain. methocarbam 2019-0 Yes [id number] 750mg Take 1 [facility] ol 750 mg 5-24 tablet by ity o f tablet 00:00: mouth 4 [place] 00 (four) Medical times Branch daily. donepezil 2019- Yes [id number] 10mg Take 1 [facility] 10 mg 5-24 tablet by ity of disintegrat 00:00: [place] tablet 00 bedtime. Medic al Branch butalbital- Yes [id number] 1{tbl} Take 1 [facility] acetaminoph 5-24 tablet by ity of en-caff 00:00: mouth [place] (ESGIC) 00 every 6 Medical 50-325-40 (six) Branch mg tablet hours as needed. lidocaine 5 2018- Yes [id number] 1{patch Apply 1 [facility] % (700 5-24 07 } Patch to ity of mg/patch) 00:00: area(s) [place] patch 00 every 8 Medical (eight) Branch hours as needed for Localized pain. methocarbam Yes [id number] 750mg Take 1 [facility] ol 750 mg 5-24 tablet by ity o f tablet 00:00: mouth 4 [place] 00 (four) Medical times Branch daily. donepezil 2018- Yes [id number] 10mg Take 1 [facility] 10 mg 5-24 tablet by ity of disintegrat 00:00: [place] tablet 00 bedtime. Medic al Branch butalbital- Yes [id number] 1{tbl} Take 1 [facility] acetaminoph 5-24 tablet by ity of en-caff 00:00: mouth [place] (ESGIC) 00 every 6 Medical 50-325-40 (six) Branch mg tablet hours as needed. lidocaine 5 2018- Yes [id number] 1{patch Apply 1 [facility] % (700 5-24 07 } Patch to ity of mg/patch) 00:00: area(s) [place] patch 00 every 8 Medical (eight) Branch hours as needed for Localized pain. methocarbam 2019- Yes [id number] 750mg Take 1 [facility] ol 750 mg 5-24 tablet by ity o f tablet 00:00: mouth 4 [place] 00 (four) Medical times Branch daily. donepezil 2018- Yes [id number] 10mg Take 1 [facility] 10 mg 5-24 tablet by ity of disintegrat 00:00: [place] tablet 00 bedtime. Medic al Branch butalbital- Yes [id number] 1{tbl} Take 1 [facility] acetaminoph 5-24 tablet by ity of en-caff 00:00: mouth [place] (ESGIC) 00 every 6 Medical 50-325-40 (six) Branch mg tablet hours as needed. lidocaine 5 2018- Yes [id number] 1{patch Apply 1 [facility] % (700 5-24 07 } Patch to ity of mg/patch) 00:00: area(s) [place] patch 00 every 8 Medical (eight) Branch hours as needed for Localized pain. methocarbam 2018- Yes [id number] 750mg Take 1 [facility] ol 750 mg 5-24 tablet by ity o f tablet 00:00: mouth 4 [place] 00 (four) Medical times Branch daily. donepezil Yes [id number] 10mg Take 1 [facility] 10 mg 5-24 tablet by ity of disintegrat 00:00: [place] tablet 00 bedtime. Medic al Branch butalbital- Yes [id number] 1{tbl} Take 1 [facility] acetaminoph 5-24 tablet by ity of en-caff 00:00: mouth [place] (ESGIC) 00 every 6 Medical 50-325-40 (six) Branch mg tablet hours as needed. lidocaine 5 2018- Yes [id number] 1{patch Apply 1 [facility] % (700 5-24 07 } Patch to ity of mg/patch) 00:00: area(s) [place] patch 00 every 8 Medical (eight) Branch hours as needed for Localized pain. methocarbam 2019- Yes [id number] 750mg Take 1 [facility] ol 750 mg 5-24 tablet by ity o f tablet 00:00: mouth 4 [place] 00 (four) Medical times Branch daily. donepezil 2019-0 Yes [id number] 10mg Take 1 [facility] 10 mg 5-24 tablet by ity of disintegrat 00:00: [place] tablet 00 bedtime. Medic al Branch butalbital- Yes [id number] 1{tbl} Take 1 [facility] acetaminoph 5-24 tablet by ity of en-caff 00:00: mouth [place] (ESGIC) 00 every 6 Medical 50-325-40 (six) Branch mg tablet hours as needed. lidocaine 5 Yes [id number] 1{patch Apply 1 [facility] % (700 5-24 07 } Patch to ity of mg/patch) 00:00: area(s) [place] patch 00 every 8 Medical (eight) Branch hours as needed for Localized pain. methocarbam Yes [id number] 750mg Take 1 [facility] ol 750 mg 5-24 tablet by ity o f tablet 00:00: mouth 4 [place] 00 (four) Medical times Branch daily. donepezil Yes [id number] 10mg Take 1 [facility] 10 mg 5-24 tablet by ity of disintegrat 00:00: [place] tablet 00 bedtime. Medic al Branch butalbital- Yes [id number] 1{tbl} Take 1 [facility] acetaminoph 5-24 tablet by ity of en-caff 00:00: mouth [place] (ESGIC) 00 every 6 Medical 50-325-40 (six) Branch mg tablet hours as needed. lidocaine 5 Yes [id number] 1{patch Apply 1 [facility] % (700 5-24 07 } Patch to ity of mg/patch) 00:00: area(s) [place] patch 00 every 8 Medical (eight) Branch hours as needed for Localized pain. methocarbam Yes [id number] 750mg Take 1 [facility] ol 750 mg 5-24 tablet by ity o f tablet 00:00: mouth 4 [place] 00 (four) Medical times Branch daily. donepezil Yes [id number] 10mg Take 1 [facility] 10 mg 5-24 tablet by ity of disintegrat 00:00: [place] tablet 00 bedtime. Medic al Branch butalbital- Yes [id number] 1{tbl} Take 1 [facility] acetaminoph 5-24 tablet by ity of en-caff 00:00: mouth [place] (ESGIC) 00 every 6 Medical 50-325-40 (six) Branch mg tablet hours as needed. lidocaine 5 Yes [id number] 1{patch Apply 1 [facility] % (700 5-24 07 } Patch to ity of mg/patch) 00:00: area(s) [place] patch 00 every 8 Medical (eight) Branch hours as needed for Localized pain. methocarbam 2019- Yes [id number] 750mg Take 1 [facility] ol 750 mg 5-24 tablet by ity o f tablet 00:00: mouth 4 [place] 00 (four) Medical times Branch daily. donepezil 2019- Yes [id number] 10mg Take 1 [facility] 10 mg 5-24 tablet by ity of disintegrat 00:00: [place] tablet 00 bedtime. Medic al Branch butalbital- Yes [id number] 1{tbl} Take 1 [facility] acetaminoph 5-24 tablet by ity of en-caff 00:00: mouth [place] (ESGIC) 00 every 6 Medical 50-325-40 (six) Branch mg tablet hours as needed. lidocaine 5 Yes [id number] 1{patch Apply 1 [facility] % (700 5-24 07 } Patch to ity of mg/patch) 00:00: area(s) [place] patch 00 every 8 Medical (eight) Branch hours as needed for Localized pain. methocarbam Yes [id number] 750mg Take 1 [facility] ol 750 mg 5-24 tablet by ity o f tablet 00:00: mouth 4 00 (four) Medical times Branch daily. donepezil 2018- Yes [id number] 10mg Take 1 [facility] 10 mg 5-24 tablet by ity of disintegrat 00:00: [place] tablet 00 bedtime. Medic al Branch butalbital- 2020- No [id number] 1{tbl} Take 1 [facility] acetaminoph 5-24 03-06 tablet by it y of en-caff 00:00: 00:00 mouth [place] (ESGIC) 00 :00 every 6 Medical 50-325-40 (six) Branch mg tablet hours as needed. lidocaine 5 2020- No [id number] 1{patch Apply 1 [facility] % (700 5-24 03-06 07 } Patch to ity of mg/patch) 00:00: 00:00 [place] patch [place] :00 every 8 Medical (eight) Branch hours as needed for Localized pain. methocarbam 2020- No [id number] 750mg Take 1 [facility] ol 750 mg 5-24 03-06 tablet by ity of tablet 00:00: 00:00 mouth 4 [place] 00 :00 (four) Medical times Branch daily. donepezil 2018- 2020- No [id number] 10mg Take 1 U nivers 10 mg 5-24 - tablet by ity of disintegrat 00:00: 00:00 [place] tablet 00 :00 bedtime. [facility] Branch cloNIDine 0 Yes TK 1 T PO Uni vers 0.1 mg 5-13 BID ity of tablet 00:00: [place] [facility] cloNIDine 2018-0 Yes TK 1 T PO Uni vers 0.1 mg 5-13 BID ity of tablet 00:00: [place] [facility] cloNIDine 2018- Yes TK 1 T PO Uni vers 0.1 mg 5-13 BID ity of tablet 00:00: [place] [facility] cloNIDine 2018- Yes TK 1 T PO Uni vers 0.1 mg 5-13 BID ity of tablet 00:00: [place] [facility] cloNIDine 2018-0 Yes TK 1 T PO Uni vers 0.1 mg 5-13 BID ity of tablet 00:00: [place] [facility] cloNIDine 2018-0 Yes TK 1 T PO Uni vers 0.1 mg 5-13 BID ity of tablet 00:00: [place] [facility] cloNIDine 2019-0 Yes TK 1 T PO Uni vers 0.1 mg 5-13 BID ity of tablet 00:00: [place] [facility] cloNIDine 2019-0 Yes TK 1 T PO Uni vers 0.1 mg 5-13 BID ity of tablet 00:00: [place] [facility] cloNIDine 2019-0 Yes TK 1 T PO Uni vers 0.1 mg 5-13 BID ity of tablet 00:00: [place] [facility] cloNIDine 2019-0 Yes TK 1 T PO Uni vers 0.1 mg 5-13 BID ity of tablet 00:00: [place] [facility] cloNIDine 2019-0 Yes TK 1 T PO Uni vers 0.1 mg 5-13 BID ity of tablet 00:00: [place] [facility] cloNIDine 2019-0 Yes TK 1 T PO Uni vers 0.1 mg 5-13 BID ity of tablet 00:00: [address] cloNIDine 2018-0 Yes TK 1 T PO Uni vers 0.1 mg 5-13 BID ity of tablet 00:00: [place] [facility] cloNIDine 2018-0 Yes TK 1 T PO Uni vers 0.1 mg 5-13 BID ity of tablet 00:00: [place] [facility] cloNIDine Yes TK 1 T PO Uni vers 0.1 mg 5-13 BID ity of tablet 00:00: [place] [facility] cloNIDine Yes TK 1 T PO Uni vers 0.1 mg 5-13 BID ity of tablet 00:00: [place] [facility] cloNIDine Yes TK 1 T PO Uni vers 0.1 mg 5-13 BID ity of tablet 00:00: [place] [facility] cloNIDine Yes TK 1 T PO Uni vers 0.1 mg 5-13 BID ity of tablet 00:00: [place] [facility] cloNIDine Yes TK 1 T PO Uni vers 0.1 mg 5-13 BID ity of tablet 00:00: [place] [facility] cloNIDine Yes TK 1 T PO Uni vers 0.1 mg 5-13 BID ity of tablet 00:00: [place] [facility] cloNIDine Yes TK 1 T PO Uni vers 0.1 mg 5-13 BID ity of tablet 00:00: [place] [facility] cloNIDine Yes TK 1 T PO Uni vers 0.1 mg 5-13 BID ity of tablet 00:00: [place] [facility] cloNIDine Yes TK 1 T PO Uni vers 0.1 mg 5-13 BID ity of tablet 00:00: [place] [facility] cloNIDine Yes TK 1 T PO Uni vers 0.1 mg 5-13 BID ity of tablet 00:00: [place] [facility] cloNIDine Yes TK 1 T PO Uni vers 0.1 mg 5-13 BID ity of tablet 00:00: [place] [facility] cloNIDine Yes TK 1 T PO Uni vers 0.1 mg 5-13 BID ity of tablet 00:00: [place] [facility] cloNIDine Yes TK 1 T PO Uni vers 0.1 mg 5-13 BID ity of tablet 00:00: [place] [facility] cloNIDine Yes TK 1 T PO Uni vers 0.1 mg 5-13 BID ity of tablet 00:00: [address] cloNIDine Yes TK 1 T PO Uni vers 0.1 mg 5-13 BID ity of tablet 00:00: [place] [facility] cloNIDine Yes TK 1 T PO Uni vers 0.1 mg 5-13 BID ity of tablet 00:00: [place] 00 [facility] cloNIDine 2019-0 Yes TK 1 T PO Uni vers 0.1 mg 5-13 BID ity of tablet 00:00: [place] [facility] cloNIDine 2019-0 Yes TK 1 T PO Uni vers 0.1 mg 5-13 BID ity of tablet 00:00: [place] [facility] cloNIDine 2019-0 Yes TK 1 T PO Uni vers 0.1 mg 5-13 BID ity of tablet 00:00: [place] [facility] cloNIDine 2019-0 Yes TK 1 T PO Uni vers 0.1 mg 5-13 BID ity of tablet 00:00: [place] [facility] cloNIDine 2018- Yes TK 1 T PO Uni vers 0.1 mg 5-13 BID ity of tablet 00:00: [place] [facility] cloNIDine 2018- Yes TK 1 T PO Uni vers 0.1 mg 5-13 BID ity of tablet 00:00: [place] [facility] cloNIDine 2018-0 Yes TK 1 T PO Uni vers 0.1 mg 5-13 BID ity of tablet 00:00: [place] [facility] cloNIDine 2018-0 Yes TK 1 T PO Uni vers 0.1 mg 5-13 BID ity of tablet 00:00: [place] [facility] cloNIDine 2018- Yes TK 1 T PO Uni vers 0.1 mg 5-13 BID ity of tablet 00:00: [place] [facility] cloNIDine 2019-0 Yes TK 1 T PO Uni vers 0.1 mg 5-13 BID ity of tablet 00:00: [place] [facility] cloNIDine 2019-0 Yes TK 1 T PO Uni vers 0.1 mg 5-13 BID ity of tablet 00:00: [place] [facility] cloNIDine 2019-0 Yes TK 1 T PO Uni vers 0.1 mg 5-13 BID ity of tablet 00:00: [place] [facility] cloNIDine 2019-0 Yes TK 1 T PO Uni vers 0.1 mg 5-13 BID ity of tablet 00:00: [place] [facility] cloNIDine 2019-0 Yes TK 1 T PO Uni vers 0.1 mg 5-13 BID ity of tablet 00:00: [place] [facility] cloNIDine 2019-0 Yes TK 1 T PO Uni vers 0.1 mg 5-13 BID ity of tablet 00:00: [place] 00 [facility] cloNIDine 2019-0 Yes TK 1 T PO Uni vers 0.1 mg 5-13 BID ity of tablet 00:00: [place] [facility] cloNIDine Yes TK 1 T PO Uni vers 0.1 mg 5-13 BID ity of tablet 00:00: [place] [facility] cloNIDine Yes TK 1 T PO Uni vers 0.1 mg 5-13 BID ity of tablet 00:00: [place] [facility] cloNIDine Yes TK 1 T PO Uni vers 0.1 mg 5-13 BID ity of tablet 00:00: [place] [facility] cloNIDine Yes TK 1 T PO Uni vers 0.1 mg 5-13 BID ity of tablet 00:00: [address] cloNIDine Yes TK 1 T PO Uni vers 0.1 mg 5-13 BID ity of tablet 00:00: [address] cloNIDine Yes TK 1 T PO Uni vers 0.1 mg 5-13 BID ity of tablet 00:00: [address] cloNIDine Yes TK 1 T PO Uni vers 0.1 mg 5-13 BID ity of tablet 00:00: [place] [facility] cloNIDine 2021- No TK 1 T PO Un brian 0.1 mg 5-13 02-20 BID ity of tablet 00:00: 00:00 [place] 00 :00 [facility] hydrALAZINE Yes TK 1 T PO U nivers 50 mg 4-29 TID WF ity of tablet 00:00: [place] [facility] hydrALAZINE Yes TK 1 T PO U nivers 50 mg 4-29 TID WF ity of tablet 00:00: [place] [facility] hydrALAZINE Yes TK 1 T PO U nivers 50 mg 4-29 TID WF ity of tablet 00:00: [place] [facility] hydrALAZINE Yes TK 1 T PO U nivers 50 mg 4-29 TID WF ity of tablet 00:00: [place] [facility] hydrALAZINE Yes TK 1 T PO U nivers 50 mg 4-29 TID WF ity of tablet 00:00: [address] hydrALAZINE Yes TK 1 T PO U nivers 50 mg 4-29 TID WF ity of tablet 00:00: [place] [facility] hydrALAZINE Yes TK 1 T PO U nivers 50 mg 4-29 TID WF ity of tablet 00:00: [place] [facility] hydrALAZINE [id number] Yes TK 1 T PO U nivers 50 mg 4-29 TID WF ity of tablet 00:00: [place] [facility] hydrALAZINE Yes TK 1 T PO U nivers 50 mg 4-29 TID WF ity of tablet 00:00: [place] [facility] hydrALAZINE Yes TK 1 T PO U nivers 50 mg 4-29 TID WF ity of tablet 00:00: [place] [facility] hydrALAZINE Yes TK 1 T PO U nivers 50 mg 4-29 TID WF ity of tablet 00:00: [address] hydrALAZINE Yes TK 1 T PO U nivers 50 mg 4-29 TID WF ity of tablet 00:00: [address] hydrALAZINE Yes TK 1 T PO U nivers 50 mg 4-29 TID WF ity of tablet 00:00: [address] hydrALAZINE Yes TK 1 T PO U nivers 50 mg 4-29 TID WF ity of tablet 00:00: [address] hydrALAZINE Yes TK 1 T PO U nivers 50 mg 4-29 TID WF ity of tablet 00:00: [address] hydrALAZINE Yes TK 1 T PO U nivers 50 mg 4-29 TID WF ity of tablet 00:00: [address] hydrALAZINE 0 Yes TK 1 T PO U nivers 50 mg 4-29 TID WF ity of tablet 00:00: [address] hydrALAZINE Yes TK 1 T PO U nivers 50 mg 4-29 TID WF ity of tablet 00:00: [address] hydrALAZINE 0 Yes TK 1 T PO U nivers 50 mg 4-29 TID WF ity of tablet 00:00: [address] hydrALAZINE Yes TK 1 T PO U nivers 50 mg 4-29 TID WF ity of tablet 00:00: [address] hydrALAZINE Yes TK 1 T PO U nivers 50 mg 4-29 TID WF ity of tablet 00:00: [place] [facility] hydrALAZINE [id number] Yes TK 1 T PO U nivers 50 mg 4-29 TID WF ity of tablet 00:00: [place] [facility] hydrALAZINE 0 Yes TK 1 T PO U nivers 50 mg 4-29 TID WF ity of tablet 00:00: [place] [facility] hydrALAZINE 0 Yes TK 1 T PO U nivers 50 mg 4-29 TID WF ity of tablet 00:00: [place] [facility] hydrALAZINE 0 Yes TK 1 T PO U nivers 50 mg 4-29 TID WF ity of tablet 00:00: [place] [facility] hydrALAZINE Yes TK 1 T PO U nivers 50 mg 4-29 TID WF ity of tablet 00:00: [address] hydrALAZINE Yes TK 1 T PO U nivers 50 mg 4-29 TID WF ity of tablet 00:00: [place] [facility] hydrALAZINE 20190 Yes TK 1 T PO U nivers 50 mg 4-29 TID WF ity of tablet 00:00: [address] hydrALAZINE 0 Yes TK 1 T PO U nivers 50 mg 4-29 TID WF ity of tablet 00:00: [place] [facility] hydrALAZINE 2018-0 Yes TK 1 T PO U nivers 50 mg 4-29 TID WF ity of tablet 00:00: [address] hydrALAZINE 0 Yes TK 1 T PO U nivers 50 mg 4-29 TID WF ity of tablet 00:00: [place] [facility] hydrALAZINE 2019-0 Yes TK 1 T PO U nivers 50 mg 4-29 TID WF ity of tablet 00:00: [place] [facility] hydrALAZINE 0 Yes TK 1 T PO U nivers 50 mg 4-29 TID WF ity of tablet 00:00: [place] [facility] hydrALAZINE 2018-0 Yes TK 1 T PO U nivers 50 mg 4-29 TID WF ity of tablet 00:00: [address] hydrALAZINE 2018-0 Yes TK 1 T PO U nivers 50 mg 4-29 TID WF ity of tablet 00:00: [place] [facility] hydrALAZINE 2019-0 Yes TK 1 T PO U nivers 50 mg 4-29 TID WF ity of tablet 00:00: [place] [facility] hydrALAZINE 2019-0 Yes TK 1 T PO U nivers 50 mg 4-29 TID WF ity of tablet 00:00: [place] [facility] hydrALAZINE 0 Yes TK 1 T PO U nivers 50 mg 4-29 TID WF ity of tablet 00:00: [place] [facility] hydrALAZINE 2019-0 Yes TK 1 T PO U nivers 50 mg 4-29 TID WF ity of tablet 00:00: [place] [facility] hydrALAZINE 0 Yes TK 1 T PO U nivers 50 mg 4-29 TID WF ity of tablet 00:00: [place] [facility] hydrALAZINE 0 Yes TK 1 T PO U nivers 50 mg 4-29 TID WF ity of tablet 00:00: [place] [facility] hydrALAZINE 2019-0 Yes TK 1 T PO U nivers 50 mg 4-29 TID WF ity of tablet 00:00: [place] [facility] hydrALAZINE 0 Yes TK 1 T PO U nivers 50 mg 4-29 TID WF ity of tablet 00:00: [address] hydrALAZINE 2019-0 Yes TK 1 T PO U nivers 50 mg 4-29 TID WF ity of tablet 00:00: [place] [facility] hydrALAZINE 20190 Yes TK 1 T PO U nivers 50 mg 4-29 TID WF ity of tablet 00:00: [place] [facility] hydrALAZINE 2019-0 Yes TK 1 T PO U nivers 50 mg 4-29 TID WF ity of tablet 00:00: [place] [facility] hydrALAZINE 0 Yes TK 1 T PO U nivers 50 mg 4-29 TID WF ity of tablet 00:00: [address] hydrALAZINE 2019-0 Yes TK 1 T PO U nivers 50 mg 4-29 TID WF ity of tablet 00:00: [address] hydrALAZINE 0 Yes TK 1 T PO U nivers 50 mg 4-29 TID WF ity of tablet 00:00: [address] hydrALAZINE 2018-0 Yes TK 1 T PO U nivers 50 mg 4-29 TID WF ity of tablet 00:00: [place] [facility] hydrALAZINE 2019-0 Yes TK 1 T PO U nivers 50 mg 4-29 TID WF ity of tablet 00:00: [place] [facility] hydrALAZINE 2018-0 Yes TK 1 T PO U nivers 50 mg 4-29 TID WF ity of tablet 00:00: [place] [facility] hydrALAZINE 2018-0 Yes TK 1 T PO U nivers 50 mg 4-29 TID WF ity of tablet 00:00: [place] [facility] hydrALAZINE 2018-0 2021- No TK 1 T PO Univers 50 mg 4-29 02-20 TID WF ity of tablet 00:00: 00:00 [place] 00 : Medical Branch furosemide 2018-0 Yes TK 1 T PO Un brian 20 mg 4-12 QD ity of tablet 00:00: [place] [facility] furosemide 2018-0 Yes TK 1 T PO Un brian 20 mg 4-12 QD ity of tablet 00:00: [place] [facility] furosemide 2019-0 Yes TK 1 T PO Un brian 20 mg 4-12 QD ity of tablet 00:00: [place] [facility] furosemide 2019-0 Yes TK 1 T PO Un brian 20 mg 4-12 QD ity of tablet 00:00: [place] [facility] furosemide 2019-0 Yes TK 1 T PO Un brian 20 mg 4-12 QD ity of tablet 00:00: [place] [address] Medical Branch furosemide 2019-0 Yes TK 1 T PO Un brian 20 mg 4-12 QD ity of tablet 00:00: [place] [facility] furosemide 2019-0 Yes TK 1 T PO Un brian 20 mg 4-12 QD ity of tablet 00:00: [place] [facility] furosemide 2019-0 Yes TK 1 T PO Un brian 20 mg 4-12 QD ity of tablet 00:00: [place] [facility] furosemide 2019-0 Yes TK 1 T PO Un brian 20 mg 4-12 QD ity of tablet 00:00: [place] [facility] furosemide 2019-0 Yes TK 1 T PO Un brian 20 mg 4-12 QD ity of tablet 00:00: [place] [facility] furosemide 2019-0 Yes TK 1 T PO Un brian 20 mg 4-12 QD ity of tablet 00:00: [place] [facility] furosemide 2019-0 Yes TK 1 T PO Un brian 20 mg 4-12 QD ity of tablet 00:00: [place] [facility] furosemide 2019-0 Yes TK 1 T PO Un brian 20 mg 4-12 QD ity of tablet 00:00: [place] [facility] furosemide 2019- Yes TK 1 T PO Un brian 20 mg 4-12 QD ity of tablet 00:00: [place] [facility] furosemide 2019-0 Yes TK 1 T PO Un brian 20 mg 4-12 QD ity of tablet 00:00: [place] [facility] furosemide 2019- Yes TK 1 T PO Un brian 20 mg 4-12 QD ity of tablet 00:00: [place] [facility] furosemide 2019- Yes TK 1 T PO Un brian 20 mg 4-12 QD ity of tablet 00:00: [place] [facility] furosemide 2018- Yes TK 1 T PO Un brian 20 mg 4-12 QD ity of tablet 00:00: [place] [facility] furosemide 2019-0 Yes TK 1 T PO Un brian 20 mg 4-12 QD ity of tablet 00:00: [place] [facility] furosemide 2019- Yes TK 1 T PO Un brian 20 mg 4-12 QD ity of tablet 00:00: [place] [facility] furosemide 2019-0 Yes TK 1 T PO Un brian 20 mg 4-12 QD ity of tablet 00:00: [place] [facility] furosemide 2019-0 Yes TK 1 T PO Un brian 20 mg 4-12 QD ity of tablet 00:00: [place] [facility] furosemide 2019-0 Yes TK 1 T PO Un brian 20 mg 4-12 QD ity of tablet 00:00: [place] [facility] furosemide 2019-0 Yes TK 1 T PO Un brian 20 mg 4-12 QD ity of tablet 00:00: [place] [facility] furosemide 2019-0 Yes TK 1 T PO Un brian 20 mg 4-12 QD ity of tablet 00:00: [place] [facility] furosemide 2019-0 Yes TK 1 T PO Un brian 20 mg 4-12 QD ity of tablet 00:00: [place] [facility] furosemide 2019-0 Yes TK 1 T PO Un brian 20 mg 4-12 QD ity of tablet 00:00: [place] [facility] furosemide 2019-0 Yes TK 1 T PO Un brian 20 mg 4-12 QD ity of tablet 00:00: [place] [facility] furosemide 2019-0 Yes TK 1 T PO Un brian 20 mg 4-12 QD ity of tablet 00:00: [place] [facility] furosemide 2019-0 Yes TK 1 T PO Un brian 20 mg 4-12 QD ity of tablet 00:00: [place] [facility] furosemide 2019-0 Yes TK 1 T PO Un brian 20 mg 4-12 QD ity of tablet 00:00: [place] [facility] furosemide 2019-0 Yes TK 1 T PO Un brian 20 mg 4-12 QD ity of tablet 00:00: [place] [facility] furosemide 2019- Yes TK 1 T PO Un brian 20 mg 4-12 QD ity of tablet 00:00: [place] [facility] furosemide 2019- Yes TK 1 T PO Un brian 20 mg 4-12 QD ity of tablet 00:00: [place] [facility] furosemide 2018- Yes TK 1 T PO Un brian 20 mg 4-12 QD ity of tablet 00:00: [place] [facility] furosemide 2019-0 Yes TK 1 T PO Un brian 20 mg 4-12 QD ity of tablet 00:00: [place] [facility] furosemide 2019-0 Yes TK 1 T PO Un brian 20 mg 4-12 QD ity of tablet 00:00: [place] [facility] furosemide 2019-0 Yes TK 1 T PO Un brian 20 mg 4-12 QD ity of tablet 00:00: [place] [facility] furosemide 2019-0 Yes TK 1 T PO Un brian 20 mg 4-12 QD ity of tablet 00:00: [place] [facility] furosemide 2019-0 Yes TK 1 T PO Un brian 20 mg 4-12 QD ity of tablet 00:00: [place] [facility] furosemide 2019-0 Yes TK 1 T PO Un brian 20 mg 4-12 QD ity of tablet 00:00: [place] [facility] furosemide 2019-0 Yes TK 1 T PO Un brian 20 mg 4-12 QD ity of tablet 00:00: [place] [facility] furosemide 2019-0 Yes TK 1 T PO Un brian 20 mg 4-12 QD ity of tablet 00:00: [place] [facility] furosemide 2019-0 Yes TK 1 T PO Un brian 20 mg 4-12 QD ity of tablet 00:00: [place] [facility] furosemide 2019-0 Yes TK 1 T PO Un brian 20 mg 4-12 QD ity of tablet 00:00: [place] [facility] furosemide 2019-0 Yes TK 1 T PO Un brian 20 mg 4-12 QD ity of tablet 00:00: [place] [facility] furosemide 2019-0 Yes TK 1 T PO Un brian 20 mg 4-12 QD ity of tablet 00:00: [place] [facility] furosemide 2019-0 Yes TK 1 T PO Un brian 20 mg 4-12 QD ity of tablet 00:00: [place] [facility] furosemide 2019-0 Yes TK 1 T PO Un brian 20 mg 4-12 QD ity of tablet 00:00: [place] [facility] furosemide 2019-0 Yes TK 1 T PO Un brian 20 mg 4-12 QD ity of tablet 00:00: [place] [facility] furosemide 2019-0 Yes TK 1 T PO Un brian 20 mg 4-12 QD ity of tablet 00:00: [place] [facility] furosemide 2019-0 Yes TK 1 T PO Un brian 20 mg 4-12 QD ity of tablet 00:00: [place] [facility] furosemide 2019-0 Yes TK 1 T PO Un brian 20 mg 4-12 QD ity of tablet 00:00: [place] [facility] furosemide 2019-0 Yes TK 1 T PO Un brian 20 mg 4-12 QD ity of tablet 00:00: [place] [facility] furosemide 2019-0 Yes TK 1 T PO Un brian 20 mg 4-12 QD ity of tablet 00:00: [place] [facility] furosemide 2019-0 Yes TK 1 T PO Un brian 20 mg 4-12 QD ity of tablet 00:00: [place] [facility] furosemide 2019-0 Yes TK 1 T PO Un brian 20 mg 4-12 QD ity of tablet 00:00: [place] [facility] furosemide 2019-0 Yes TK 1 T PO Un brian 20 mg 4-12 QD ity of tablet 00:00: [place] [facility] furosemide 2019-0 Yes TK 1 T PO Un brian 20 mg 4-12 QD ity of tablet 00:00: [place] [facility] furosemide 2019-0 Yes TK 1 T PO Un brian 20 mg 4-12 QD ity of tablet 00:00: [place] [facility] furosemide 2019-0 Yes TK 1 T PO Un brian 20 mg 4-12 QD ity of tablet 00:00: [place] 00 [facility] furosemide 2019-0 Yes TK 1 T PO Un brian 20 mg 4-12 QD ity of tablet 00:00: [place] 00 [facility] furosemide 2019-0 Yes TK 1 T PO Un brian 20 mg 4-12 QD ity of tablet 00:00: [place] 00 [facility] furosemide 2019-0 2020- No TK 1 T PO U nivers 20 mg 4-12 06-11 QD ity of tablet 00:00: 00:00 [place] 00 :00 [facility] atenolol 25 2018-0 Yes Univer s mg tablet 828 ity of 00:00: [place] [facility] atenolol 25 2018-0 Yes Univer s mg tablet 828 ity of 00:00: [place] [facility] atenolol 25 2018-0 Yes Univer s mg tablet 8 ity of 00:00: [place] [address] [facility] atenolol 25 2018-0 Yes Univer s mg tablet 8 ity of 00:00: [place] [address] [facility] atenolol 25 2018-0 Yes Univer s mg tablet 06-21 ity of 00:00: [place] [address] [facility] atenolol 25 2018-0 Yes Univer s mg tablet 06-21 ity of 00:00: [place] [address] [facility] atenolol 25 2018-0 Yes Univer s mg tablet 06-21 ity of 00:00: [place] [address] [facility] atenolol 25 2018-0 Yes Univer s mg tablet 8 ity of 00:00: [place] [address] [facility] atenolol 25 2018-0 Yes Univer s mg tablet 828 ity of 00:00: [place] 00 [facility] atenolol 25 2018-0 Yes Univer s mg tablet 828 ity of 00:00: [place] 00 [facility] atenolol 25 2018-0 Yes Univer s mg tablet 828 ity of 00:00: [place] 00 [facility] atenolol 25 2018-0 Yes Univer s mg tablet 8-28 ity of 00:00: [place] 00 [facility] atenolol 25 2018-0 Yes Univer s mg tablet 828 ity of 00:00: [place] 00 [facility] atenolol 25 2018-0 Yes Univer s mg tablet 828 ity of 00:00: [place] [address] [facility] atenolol 25 2018-0 Yes Univer s mg tablet 06-21 ity of 00:00: [place] [facility] atenolol 25 Yes Univer s mg tablet 06-21 ity of 00:00: [place] [facility] atenolol 25 Yes Univer s mg tablet 06-21 ity of 00:00: [place] [facility] atenolol 25 2020- No Unive rs mg tablet 06-21 ity of 00:00: 00:00 [place] 00 :00 [facility] finasteride Yes TK 1 T PO U nivers 5 mg tablet 8-23 QD ity of 00:00: [place] [facility] finasteride Yes TK 1 T PO U nivers 5 mg tablet 8-23 QD ity of 00:00: [place] [facility] finasteride Yes TK 1 T PO U nivers 5 mg tablet 8-23 QD ity of 00:00: [place] [facility] finasteride Yes TK 1 T PO U nivers 5 mg tablet 8-23 QD ity of 00:00: [place] [facility] finasteride Yes TK 1 T PO U nivers 5 mg tablet 8-23 QD ity of 00:00: [place] [facility] finasteride Yes TK 1 T PO U nivers 5 mg tablet 8-23 QD ity of 00:00: [place] [facility] finasteride Yes TK 1 T PO U nivers 5 mg tablet 8-23 QD ity of 00:00: [place] [facility] finasteride Yes TK 1 T PO U nivers 5 mg tablet 8-23 QD ity of 00:00: [place] [facility] finasteride Yes TK 1 T PO U nivers 5 mg tablet 8-23 QD ity of 00:00: [place] [facility] finasteride Yes TK 1 T PO U nivers 5 mg tablet 8-23 QD ity of 00:00: [place] [facility] finasteride Yes TK 1 T PO U nivers 5 mg tablet 8-23 QD ity of 00:00: [place] [facility] finasteride Yes TK 1 T PO U nivers 5 mg tablet 8-23 QD ity of 00:00: [place] [facility] finasteride 2018 Yes TK 1 T PO U nivers 5 mg tablet 8-23 QD ity of 00:00: [place] [facility] finasteride 2018 Yes TK 1 T PO U nivers 5 mg tablet 8-23 QD ity of 00:00: [place] [facility] finasteride Yes TK 1 T PO U nivers 5 mg tablet 8-23 QD ity of 00:: [place] [facility] finasteride Yes TK 1 T PO U nivers 5 mg tablet 8-23 QD ity of 00:: [place] [facility] finasteride Yes TK 1 T PO U nivers 5 mg tablet 8-23 QD ity of 00:: [place] [facility] finasteride Yes TK 1 T PO U nivers 5 mg tablet 8-23 QD ity of 00:: [place] [facility] finasteride Yes TK 1 T PO U nivers 5 mg tablet 8-23 QD ity of :: [place] [facility] finasteride Yes TK 1 T PO U nivers 5 mg tablet 8-23 QD ity of 00:: [place] [facility] finasteride Yes TK 1 T PO U nivers 5 mg tablet 8-23 QD ity of :: [place] [facility] finasteride Yes TK 1 T PO U nivers 5 mg tablet 8-23 QD ity of 00:00: [place] [facility] finasteride Yes TK 1 T PO U nivers 5 mg tablet 8-23 QD ity of 00:00: [place] [facility] finasteride 2018 Yes TK 1 T PO U nivers 5 mg tablet 8-23 QD ity of 00:00: [place] [facility] finasteride Yes TK 1 T PO U nivers 5 mg tablet 8-23 QD ity of 00:00: [place] [facility] finasteride Yes TK 1 T PO U nivers 5 mg tablet 8-23 QD ity of 00:00: [place] [facility] finasteride Yes TK 1 T PO U nivers 5 mg tablet 8-23 QD ity of 00:00: [place] [facility] finasteride Yes TK 1 T PO U nivers 5 mg tablet 8-23 QD ity of 00:00: [place] [facility] finasteride 2018 Yes TK 1 T PO U nivers 5 mg tablet 8-23 QD ity of 00:00: [place] [facility] finasteride 2018 Yes TK 1 T PO U nivers 5 mg tablet 8-23 QD ity of 00:00: [place] [facility] finasteride Yes TK 1 T PO U nivers 5 mg tablet 8-23 QD ity of 00:00: [place] [facility] finasteride 2018 Yes TK 1 T PO U nivers 5 mg tablet 8-23 QD ity of 00:00: [place] [facility] finasteride Yes TK 1 T PO U nivers 5 mg tablet 8-23 QD ity of :: [place] [facility] finasteride Yes TK 1 T PO U nivers 5 mg tablet 8-23 QD ity of 00:00: [place] [facility] finasteride Yes TK 1 T PO U nivers 5 mg tablet 8-23 QD ity of 00:: [place] [facility] finasteride Yes TK 1 T PO U nivers 5 mg tablet 8-23 QD ity of 00:00: [place] [facility] finasteride 2018 Yes TK 1 T PO U nivers 5 mg tablet 8-23 QD ity of 00:00: [place] [facility] finasteride Yes TK 1 T PO U nivers 5 mg tablet 8-23 QD ity of 00:00: [place] [facility] finasteride 2018 Yes TK 1 T PO U nivers 5 mg tablet 8-23 QD ity of 00:00: [place] [facility] finasteride 2018 Yes TK 1 T PO U nivers 5 mg tablet 8-23 QD ity of 00:00: [place] [facility] finasteride 2018 Yes TK 1 T PO U nivers 5 mg tablet 8-23 QD ity of 00:00: [place] [facility] finasteride Yes TK 1 T PO U nivers 5 mg tablet 8-23 QD ity of 00:00: [place] [facility] finasteride Yes TK 1 T PO U nivers 5 mg tablet 8-23 QD ity of 00:00: [place] [facility] finasteride 2018 Yes TK 1 T PO U nivers 5 mg tablet 8-23 QD ity of 00:00: [place] [facility] finasteride 2018 Yes TK 1 T PO U nivers 5 mg tablet 8-23 QD ity of 00:: [place] [facility] finasteride Yes TK 1 T PO U nivers 5 mg tablet 8-23 QD ity of 00:00: [place] [facility] finasteride Yes TK 1 T PO U nivers 5 mg tablet 8-23 QD ity of 00:00: [place] [facility] finasteride Yes TK 1 T PO U nivers 5 mg tablet 8-23 QD ity of 00:00: [place] [facility] finasteride Yes TK 1 T PO U nivers 5 mg tablet 8-23 QD ity of :: [place] [facility] finasteride Yes TK 1 T PO U nivers 5 mg tablet 8-23 QD ity of 00:: [place] [facility] finasteride Yes TK 1 T PO U nivers 5 mg tablet 8-23 QD ity of 00:: [place] [facility] finasteride Yes TK 1 T PO U nivers 5 mg tablet 8-23 QD ity of 00:: [place] [facility] finasteride Yes TK 1 T PO U nivers 5 mg tablet 8-23 QD ity of 00:00: [place] [facility] finasteride Yes TK 1 T PO U nivers 5 mg tablet 8-23 QD ity of 00:00: [place] [facility] finasteride Yes TK 1 T PO U nivers 5 mg tablet 8-23 QD ity of 00:00: [place] [facility] finasteride Yes TK 1 T PO U nivers 5 mg tablet 8-23 QD ity of 00:00: [place] [facility] finasteride Yes TK 1 T PO U nivers 5 mg tablet 8-23 QD ity of 00:00: [place] [facility] finasteride Yes TK 1 T PO U nivers 5 mg tablet 8-23 QD ity of 00:00: [place] [facility] finasteride Yes TK 1 T PO U nivers 5 mg tablet 8-23 QD ity of 00:00: [place] [facility] finasteride 20180 Yes TK 1 T PO U nivers 5 mg tablet 8-23 QD ity of 00:00: [facility] finasteride 2018-0 Yes TK 1 T PO U nivers 5 mg tablet 8-23 QD ity of 00:00: [facility] finasteride 20180 Yes TK 1 T PO U nivers 5 mg tablet 8-23 QD ity of 00:00: [facility] finasteride 2018-0 Yes TK 1 T PO U nivers 5 mg tablet 8-23 QD ity of 00:00: [facility] finasteride 0 Yes TK 1 T PO U nivers 5 mg tablet 8-23 QD ity of 00:00: [facility] finasteride 20180 Yes TK 1 T PO U nivers 5 mg tablet 8-23 QD ity of 00:00: [facility] Branch triamcinolo 2016-0 Yes Univer s [...] 00 Medical 0.1 % Branch ointment triamcinolo 20160 Yes Univer s ne 5-09 ity of acetonide 00:00: [place] (KENALOG) 00 Medical 0.1 % Branch ointment triamcinolo 20160 Yes Univer s ne 5-09 ity of acetonide 00:00: [place] (KENALOG) 00 Medical 0.1 % Branch ointment triamcinolo 20160 Yes Univer s ne 5-09 ity of acetonide 00:00: [place] (KENALOG) 00 Medical 0.1 % Branch ointment triamcinolo 20160 Yes Univer s ne 5-09 ity of [...] 00 Medical 0.1 % Branch ointment triamcinolo 20160 Yes Univer s ne 5-09 ity of acetonide 00:00: [place] (KENALOG) 00 Medical 0.1 % Branch ointment triamcinolo 20160 Yes Univer s ne 5-09 ity of acetonide 00:00: [place] (KENALOG) 00 Medical 0.1 % Branch ointment triamcinolo 0 2020- No Unive rs ne 5- 06-23 ity of acetonide 00:00: 00:00 [place] [...] 1,000 mg SR Branch tablet niacin ER 0 Yes Univers (NIASPAN 5-02 ity of EXTENDED-RE [...] 1,000 mg SR Branch tablet niacin ER 0 Yes Univers (NIASPAN 5-02 ity of EXTENDED-RE 00:00: [place] LEASE) 00 Medical 1,000 mg SR Branch tablet niacin ER 2020- No Univers (NIASPAN 5-02 03-06 ity of EXTENDED-RE 00:00: 00:00 [place] [...] tablet 00 Medical Branch losartan 0 Yes 100mg Take 100 Univ ers (COZAAR) 3-18 mg by ity of 100 mg 00:00: mouth at [place] tablet 00 bedtime. Medical Branch losartan 0 Yes 100mg Take 100 Univ ers (COZAAR) [...] 00:00: [place] tablet 00 Medical Branch losartan 20160 Yes Univers (COZAAR) 3-18 ity of 100 mg 00:00: [place] tablet 00 Medical Branch losartan 2016-0 Yes Univers (COZAAR) 3-18 ity of 100 mg 00:00: [place] tablet 00 Medical Branch losartan 2016-0 Yes Univers (COZAAR) 3-18 ity of 100 mg 00:00: [place] tablet 00 Medical Branch losartan 20160 Yes Univers (COZAAR) 3-18 ity of 100 [...] [place] tablet 00 Medical Branch losartan 2015-0 1- No 100mg Take 100 Uni vers (COZAAR) 3-18 02-20 mg by ity of 100 mg 00:00: 00:00 mouth at [place] tablet 00 :00 bedtime. Medical Branch SYNTHROID 0 Yes Univers 100 mcg 2-22 ity of tablet 00:00: [place] 00 [facility] SYNTHROID 0 Yes Univers 100 mcg 2-22 ity of tablet 00:00: [place] 00 [facility] SYNTHROID 0 Yes Univers 100 mcg 2-22 ity of tablet 00:00: [place] 00 [facility] SYNTHROID Yes Univers 100 mcg 2-22 ity of tablet 00:00: [place] 00 [facility] SYNTHROID 2016-0 Yes Univers 100 mcg 2-22 ity of tablet 00:00: [place] [facility] SYNTHROID 2016-0 Yes Univers 100 mcg 2-22 ity of tablet 00:00: [place] [facility] SYNTHROID 2016-0 Yes Univers 100 mcg 2-22 ity of tablet 00:00: [place] [address] [facility] SYNTHROID 2016-0 Yes Univers 100 mcg 2-22 ity of tablet 00:00: [place] [address] [facility] SYNTHROID 2016-0 Yes Univers 100 mcg 2-22 ity of tablet 00:00: [place] [address] [facility] SYNTHROID 2016-0 Yes Univers 100 mcg 2-22 ity of tablet 00:00: [place] [address] [facility] SYNTHROID 2016-0 Yes Univers 100 mcg 2-22 ity of tablet 00:00: [place] [address] [facility] SYNTHROID 2016-0 Yes Univers 100 mcg 2-22 ity of tablet 00:00: [place] [address] [facility] SYNTHROID 2016-0 Yes Univers 100 mcg 2-22 ity of tablet 00:00: [place] [address] [facility] SYNTHROID 2016-0 Yes Univers 100 mcg 2-22 ity of tablet 00:00: [place] [address] [facility] SYNTHROID 2016-0 Yes Univers 100 mcg 2-22 ity of tablet 00:00: [place] [address] [facility] SYNTHROID 2016-0 Yes Univers 100 mcg 2-22 ity of tablet 00:00: [place] [address] [facility] SYNTHROID 2016-0 Yes Univers 100 mcg 2-22 ity of tablet 00:00: [place] [address] [facility] SYNTHROID 2016-0 Yes Univers 100 mcg 2-22 ity of tablet 00:00: [place] [address] [facility] SYNTHROID 2016-0 Yes Univers 100 mcg 2-22 ity of tablet 00:00: [place] [address] [facility] SYNTHROID 2016-0 Yes Univers 100 mcg 2-22 ity of tablet 00:00: [place] [facility] SYNTHROID 2016-0 Yes Univers 100 mcg 2-22 ity of tablet 00:00: [place] [address] [facility] SYNTHROID 2016-0 Yes Univers 100 mcg 2-22 ity of tablet 00:00: [place] [address] [facility] SYNTHROID 2016-0 Yes Univers 100 mcg 2-22 ity of tablet 00:00: [place] [address] [facility] SYNTHROID 2016-0 Yes Univers 100 mcg 2-22 ity of tablet 00:00: [place] [address] [facility] SYNTHROID 2016-0 Yes Univers 100 mcg 2-22 ity of tablet 00:00: [place] [address] [facility] SYNTHROID 2016-0 Yes Univers 100 mcg 2-22 ity of tablet 00:00: [place] [address] [facility] SYNTHROID 2016-0 Yes Univers 100 mcg 2-22 ity of tablet 00:00: [place] [facility] SYNTHROID 2016-0 Yes Univers 100 mcg 2-22 ity of tablet 00:00: [place] [address] [facility] SYNTHROID 2016-0 Yes Univers 100 mcg 2-22 ity of tablet 00:00: [place] [address] [facility] SYNTHROID 2016-0 Yes Univers 100 mcg 2-22 ity of tablet 00:00: [place] [address] [facility] SYNTHROID 2016-0 Yes Univers 100 mcg 2-22 ity of tablet 00:00: [place] [address] [facility] SYNTHROID 2016-0 Yes Univers 100 mcg 2-22 ity of tablet 00:00: [place] [address] [facility] SYNTHROID 2016-0 Yes Univers 100 mcg 2-22 ity of tablet 00:00: [place] [address] [facility] SYNTHROID 2016-0 Yes Univers 100 mcg 2-22 ity of tablet 00:00: [place] [address] [facility] SYNTHROID 2016-0 Yes Univers 100 mcg 2-22 ity of tablet 00:00: [place] [address] [facility] SYNTHROID 2016-0 Yes Univers 100 mcg 2-22 ity of tablet 00:00: [place] [address] [facility] SYNTHROID 2016-0 Yes Univers 100 mcg 2-22 ity of tablet 00:00: [place] [address] [facility] SYNTHROID 2016-0 Yes Univers 100 mcg 2-22 ity of tablet 00:00: [place] [address] [facility] SYNTHROID 2016-0 Yes Univers 100 mcg 2-22 ity of tablet 00:00: [place] [address] [facility] SYNTHROID 2016-0 Yes Univers 100 mcg 2-22 ity of tablet 00:00: [place] [address] [facility] SYNTHROID 2016-0 Yes Univers 100 mcg 2-22 ity of tablet 00:00: [place] [address] [facility] SYNTHROID 2016-0 Yes Univers 100 mcg 2-22 ity of tablet 00:00: [place] [address] [facility] SYNTHROID 2016-0 Yes Univers 100 mcg 2-22 ity of tablet 00:00: [place] [address] [facility] SYNTHROID 2016-0 Yes Univers 100 mcg 2-22 ity of tablet 00:00: [place] [address] [facility] SYNTHROID 2016-0 Yes Univers 100 mcg 2-22 ity of tablet 00:00: [place] [address] [facility] SYNTHROID 2016-0 Yes Univers 100 mcg 2-22 ity of tablet 00:00: [place] 00 [facility] SYNTHROID 2016-0 Yes Univers 100 mcg 2-22 ity of tablet 00:00: [place] 00 [facility] SYNTHROID 2016-0 Yes Univers 100 mcg 2-22 ity of tablet 00:00: [place] [address] [facility] SYNTHROID 2016-0 Yes Univers 100 mcg 2-22 ity of tablet 00:00: [place] [address] [facility] SYNTHROID 2016-0 Yes Univers 100 mcg 2-22 ity of tablet 00:00: [place] [address] [facility] SYNTHROID 2016-0 Yes Univers 100 mcg 2-22 ity of tablet 00:00: [place] [address] [facility] SYNTHROID 2016-0 Yes Univers 100 mcg 2-22 ity of tablet 00:00: [place] [address] [facility] SYNTHROID 2016-0 Yes Univers 100 mcg 2-22 ity of tablet 00:00: [place] [address] [facility] SYNTHROID 2016-0 Yes Univers 100 mcg 2-22 ity of tablet 00:00: [place] [address] [facility] SYNTHROID 2016-0 Yes Univers 100 mcg 2-22 ity of tablet 00:00: [place] [address] [facility] SYNTHROID 2016-0 Yes Univers 100 mcg 2-22 ity of tablet 00:00: [place] [address] [facility] SYNTHROID 2016-0 Yes Univers 100 mcg 2-22 ity of tablet 00:00: [place] [address] [facility] SYNTHROID 2016-0 Yes Univers 100 mcg 2-22 ity of tablet 00:00: [place] [address] [facility] SYNTHROID 2016-0 Yes Univers 100 mcg 2-22 ity of tablet 00:00: [place] [address] [facility] SYNTHROID 2016-0 Yes Univers 100 mcg 2-22 ity of tablet 00:00: [place] [address] [facility] SYNTHROID 2016-0 Yes Univers 100 mcg 2-22 ity of tablet 00:00: [place] [address] [facility] SYNTHROID 2016-0 Yes Univers 100 mcg 2-22 ity of tablet 00:00: [place] [address] [facility] SYNTHROID 2016-0 Yes Univers 100 mcg 2-22 ity of tablet 00:00: [place] [address] [facility] SYNTHROID 2016-0 1- No Univers 100 mcg 2-22 06-11 ity of tablet 00:00: 00:00 [place] 00 :00 Medical Branch guanFACINE 2016-0 Yes Univers (TENEX) 1 2-16 ity of mg tablet 00:00: [place] [address] [facility] Branch guanFACINE 2015-0 Yes Univers (TENEX) 1 2-16 ity of mg tablet 00:00: [place] [address] [facility] Branch guanFACINE 2016-0 Yes Univers (TENEX) 1 2-16 ity of mg tablet 00:00: [facility] guanFACINE 2016-0 Yes Univers (TENEX) 1 2-16 ity of mg tablet 00:00: [facility] guanFACINE 2016-0 Yes Univers (TENEX) 1 2-16 ity of mg tablet 00:00: [facility] guanFACINE 2016-0 Yes Univers (TENEX) 1 2-16 ity of mg tablet 00:00: [facility] guanFACINE 2016-0 Yes Univers (TENEX) 1 2-16 ity of mg tablet 00:00: [facility] guanFACINE 2016-0 Yes Univers (TENEX) 1 2-16 [facility] ity of mg tablet 00:00: [place] [facility] 2016-0 Yes Univers (TENEX) 1 2-16 ity of mg tablet 00:00: [facility] guanFACINE 2016-0 Yes Univers (TENEX) 1 2-16 ity of mg tablet 00:00: [place] [facility] guanFACINE 2016-0 Yes Univers (TENEX) 1 2-16 ity of mg tablet 00:00: [facility] guanFACINE 2016-0 Yes Univers (TENEX) 1 2-16 ity of mg tablet 00:00[facility] [place] [facility]EX[facility] 1 2-16 ity of mg tablet 00:00: [facility] guanFACINE 2016-0 Yes Univers (TENEX) 1 2-16 ity of mg tablet 00:00: [facility] guanFACINE 2016-0 Yes Univers (TENEX) 1 2-16 ity of mg tablet 00:00: [facility] guanFACINE 2016-0 Yes Univers (TENEX) 1 2-16 ity of mg tablet 00:00: [facility] guanFACINE 2016-0 Yes Univers (TENEX) 1 2-16 ity of mg tablet 00:00: [facility] guanFACINE 2016-0 Yes Univers (TENEX) 1 2-16 ity of mg tablet 00:00: [facility] guanFACINE 2016-0 Yes Univers (TENEX) 1 2-16 ity of mg tablet 00:00: [place] [facility] guanFACINE 2016-0 Yes Univers (TENEX) 1 2-16 ity of mg tablet 00:00: [facility] guanFACINE 2016-0 Yes Univers (TENEX) 1 2-16 ity [facility] mg tablet [facility] 1 2-16 ity of mg tablet 00:00: [facility] guanFACINE 2016-0 Yes Univers (TENEX) 1 2-16 ity of mg tablet 00:00: [facility] guanFACINE 2016-0 Yes Univers (TENEX) 1 2-16 [facility]-16 ity of mg tablet 00:00: [place] [facility] 2016-0 Yes Univers (TENEX) 1 2-16 ity of mg tablet 00:00: [facility] 2016-0 Yes Univers (TENEX) 1 2-16 ity of mg tablet 00:00: [facility] guanFACINE 2016-0 Yes Univers (TENEX) 1 2-16 ity of mg tablet 00:00: [facility] guanFACINE 2016-0 Yes Univers (TENEX) 1 2-16 [facility] mg tablet [facility] 2-16 ity of mg tablet 00:00: [facility] guanFACINE 2016-0 Yes Univers (TENEX) 1 2-16 ity of mg tablet 00:00: [facility] guanFACINE 2016-0 Yes Univers (TENEX) 1 2-16 ity of mg tablet 00:00: [facility] guanFACINE 2016-0 Yes Univers (TENEX) 1 2-16 ity of mg tablet 00:00: [facility] guanFACINE 2016-0 Yes Univers (TENEX) 1 2-16 ity of mg tablet 00:00: [place] [facility] guanFACINE 2016-0 Yes Univers (TENEX) 1 2-16 ity [facility] mg tablet [facility]16 [facility] 1 2-16 ity of mg tablet 00:00: [facility] guanFACINE 2016-0 Yes Univers (TENEX) 1 2-16 ity of mg tablet 00:00: [facility] 2016-0 Yes Univers (TENEX) 1 2-16 ity [facility] mg tablet [facility]EX[facility] 1 2-16 ity of mg tablet 00:00: [place] [facility] (TENEX[facility] 1 2-16 ity of mg tablet 00:00: [place] [facility] 2016-0 Yes Univers (TENEX) 1 2-16 ity of mg tablet 00:00: [address] 2016-0 Yes Univers (TENEX) 1 2-16 ity of mg tablet 00:00: [address] 2016-0 Yes Univers (TENEX) 1 2-16 ity of mg tablet 00:00[facility] [place] [facility] ([facility] 1 2-16 ity of mg tablet 00:00: [address] 2016-0 Yes Univers (TENEX) 1 2-16 ity of mg tablet 00:00: [place] [facility] 2016-0 Yes Univers (TENEX) 1 2-16 ity of mg tablet 00:00: [place] [facility] 2016-0 Yes Univers (TENEX) 1 2-16 ity of mg tablet 00:00: [facility] guanFACINE 2016-0 Yes Univers (TENEX) 1 2-16 ity of mg tablet 00:00: [place] [facility] guanFACINE 2016-0 Yes Univers (TENEX) 1 2-16 ity of mg tablet 00:00: [address] guanFACINE 2016-0 Yes Univers (TENEX) 1 2-16 ity of mg tablet 00:00: [address] [facility] ([facility]) 1 2-16 ity of mg tablet 00:00: [address] guanFACINE 2016-0 Yes Univers (TENEX) 1 2-16 ity of mg tablet 00:00: [place] [facility] guanFACINE [id number] Yes Univers (TENEX) 1 2-16 ity of mg tablet 00:00: [facility] guanFACINE 2016-0 Yes Univers (TENEX) 1 2-16 ity of mg tablet 00:00: [facility] guanFACINE 2016-0 Yes Univers (TENEX) 1 2-16 ity of mg tablet 00:00: [facility] guanCINE 2016-0 Yes Univers (TENEX) 1 2-16 ity of mg tablet 00:00: [facility] guanCINE 2016-0 Yes Univers (TENEX) 1 2-16 ity of mg tablet 00:00: [facility] guanCINE 2016-0 Yes Univers (TENEX) 1 2-16 ity of mg tablet 00:00: [place] [facility] 2016-0 Yes Univers (TENEX) 1 2-16 ity of mg tablet 00:00: [place] [facility] 0 Yes Univers (TENEX) 1 2-16 ity of mg tablet 00:00: [facility] guanCINE 0 Yes Univers (TENEX) 1 2-16 ity of mg tablet 00:00: [place] [facility] guanCINE 2021- No Univer s (TENEX) 1 2-16 06-11 ity of mg tablet 00:00: 00:00 [place] 00 :00 [facility] Immunizations Ordered Filled Immunization Date Status Comments Sour e Immunization Name Name Td 2020-12-16 Completed University of 00:00:00 [facility] Td 2020-12-16 Completed University of 00:00:00 [facility] Td 2020-12-16 Completed University of 00:00:00 [facility] Td 2020-12-16 Completed University of 00:00:00 [facility] Td 2020-12-16 Completed University of 00:00:00 [facility] Td 2020-12-16 Completed University of 00:00:00 [facility] Td 2020-12-16 Completed University of 00:00:00 [facility] Td 2020-12-16 Completed University of 00:00:00 [facility] Td 2020-12-16 Completed University of 00:00:00 [facility] Td 2020-12-16 Completed University of 00:00:00 [facility] Td 2020-12-16 Completed University of 00:00:00 [facility] SARS-COV-2 COVID-19 2020-11-30 Completed Unive rsity of MODERNA VACCINE 00:00:00 [facility] SARS-COV-2 COVID-19 2020-11-30 Completed Unive rsity of [facility] VACCINE 00:00:00 [facility] SARS-COV-2 COVID-19 2020-11-30 Completed Unive rsity of [facility] VACCINE 00:00:00 [facility] SARS-COV-2 COVID-19 2020-11-30 Completed Unive rsity of [facility] VACCINE 00:00:00 [facility] SARS-COV-2 COVID-19 2020-11-30 Completed Unive rsity of [facility] VACCINE 00:00:00 [facility] SARS-COV-2 COVID-19 2020-11-30 Completed Unive rsity of [facility] VACCINE 00:00:00 [facility] SARS-COV-2 COVID-19 2020-11-30 Completed Unive rsity of [facility] VACCINE 00:00:00 [facility] SARS-COV-2 COVID-19 2020-11-30 Completed Unive rsity of [facility] VACCINE 00:00:00 [facility] SARS-COV-2 COVID-19 2020-11-30 Completed Unive rsity of [facility] VACCINE 00:00:00 [facility] SARS-COV-2 COVID-19 2020-11-30 Completed Unive rsity of [facility] VACCINE 00:00:00 [facility] SARS-COV-2 COVID-19 2020-11-30 Completed Unive rsity of [facility] VACCINE 00:00:00 [facility] SARS-COV-2 COVID-19 2020-11-30 Completed Unive rsity of [facility] VACCINE 00:00:00 [facility] SARS-COV-2 COVID-19 2020-11-30 Completed Unive rsity of [facility] VACCINE 00:00:00 [facility] SARS-COV-2 COVID-19 2020-11-30 Completed Unive rsity of [facility] VACCINE 00:00:00 [facility] Vital Signs Vital Name Observation Time Observation Value Comments Source Systolic blood 2021-04-06 16:00:00 106 mm[Hg] Univer sity of pressure [facility] Diastolic blood 2021-04-06 16:00:00 75 mm[Hg] Unive rsity of pressure [facility] Heart rate 2021-04-06 16:00:00 74 /min Universi ty of [facility] Body temperature 2021-04-06 16:00:00 36.22 Fela Univ ersity of [facility] Respiratory rate 2021-04-06 16:00:00 16 /min Univ ersity of [facility] Oxygen saturation in 2021-04-06 16:00:00 98 /min [facility] of Arterial blood by [place] [facility] Body weight 2021-04-05 09:26:00 73.483 kg [facility] [place] [facility] [place] BMI 2021-04-05 09:26:00 23.24 kg/m2 [facility]i ty of [facility] Body height 2021-03-30 09:57:00 177.8 cm Universi ty of [facility] Systolic blood 2021-04-06 16:00:00 106 mm[Hg] Univer sity of pressure [facility] Diastolic blood 2021-04-06 16:00:00 75 mm[Hg] Unive rsity of pressure [facility] Heart rate 2021-04-06 16:00:00 74 /min [facility] [place] [facility] Body temperature 2021-04-06 16:00:00 36.22 Fela Univ ersity of [facility] Respiratory rate 2021-04-06 16:00:00 16 /min Univ ersity of [facility] Oxygen saturation in 2021-04-06 16:00:00 98 /min [facility] of Arterial blood by [employer] [facility] Body weight 2021-04-05 09:26:00 73.483 kg [facility] [place] [facility] BMI 2021-04-05 09:26:00 23.24 kg/m2 [facility]i ty of [facility] Body height 2021-03-30 09:57:00 177.8 cm [facility] [place] [facility] Systolic blood 2021-01-18 18:25:00 156 mm[Hg] Univer sity of pressure [facility] Diastolic blood 2021-01-18 18:25:00 84 mm[Hg] Unive rsity of pressure [facility] Heart rate 2021-01-18 18:24:00 101 /min [facility] Body temperature 2021-01-18 18:24:00 36.56 Fela [facility] Respiratory rate 2021-01-18 18:24:00 19 /min Univ ersity of [facility] Body height 2021-01-18 18:24:00 177.8 cm [facility] Body weight 2021-01-18 18:24:00 74.844 kg [facility] BMI 2021-01-18 18:24:00 23.68 kg/m2 [facility] Oxygen saturation in 2021-01-18 18:24:00 96 /min [facility] Ar[facility] blood by [place] [facility] Systolic blood 2021-01-18 18:25:00 156 mm[Hg] Univer sity of pressure [facility] [place] [facility] Diastolic blood 2021-01-18 18:25:00 84 mm[Hg] Unive rsity of pressure [facility] Heart rate 2021-01-18 18:24:00 101 /min [facility] Body temperature 2021-01-18 18:24:00 36.56 Fela [facility] Respiratory rate 2021-01-18 18:24:00 19 /min Univ ers[facility] Body height 2021-01-18 18:24:00 177.8 cm [facility] Body weight 2021-01-18 18:24:00 74.844 kg [facility] BMI 2021-01-18 18:24:00 23.68 kg/m2 [facility] Oxygen saturation in 2021-01-18 18:24:00 96 /min [facility] Arterial blood by [place] [facility] Systolic blood 2020-12-16 16:00:00 140 mm[Hg] Univer sity of pressure [facility] Diastolic blood 2020-12-16 16:00:00 87 mm[Hg] Unive rsity of pressure [facility] Heart rate 2020-12-16 16:00:00 74 /min [facility] Respiratory rate 2020-12-16 16:00:00 20 /min Univ ersity of [place] [facility] Oxygen saturation in 2020-12-16 16:00:00 99 /min [facility] Arterial blood by [place] [facility] Body weight 2020-12-16 15:17:00 74.844 kg [facility] [place] [facility] BMI 2020-12-16 15:17:00 25.09 kg/m2 [facility] [place] [facility] Body temperature 2020-12-16 15:15:00 36.94 Fela [facility] [place] [facility] Systolic blood 2020-12-16 16:00:00 140 mm[Hg] Univer [facility]ity of pressure [facility] [place] [facility] Diastolic blood 2020-12-16 16:00:00 87 mm[Hg] Unive rsity of pressure [facility] [place] [facility] Heart rate 2020-12-16 16:00:00 74 /min [facility] [place] [facility] Respiratory rate 2020-12-16 16:00:00 20 /min Univ ers[facility] [place] [facility] Oxygen saturation in 2020-12-16 16:00:00 99 /min [facility] of Arterial blood by [facility] Body weight 2020-12-16 15:17:00 74.844 kg [facility] [place] [facility] BMI 2020-12-16 15:17:00 25.09 kg/m2 [facility] [place] [facility] Body temperature 2020-12-16 15:15:00 36.94 Fela [facility] [place] [facility] Systolic blood 2020-12-14 17:12:00 119 mm[Hg] Univer sity of pressure [facility] [place] [facility] Diastolic blood 2020-12-14 17:12:00 81 mm[Hg] Unive rsity of pressure [facility] Heart rate 2020-12-14 17:12:00 70 /min [facility] [place] [facility] Body temperature 2020-12-14 17:12:00 36.28 Fela [facility] [place] [facility] Respiratory rate 2020-12-14 17:12:00 18 /min [facility] ers[facility] of [place] [facility] Oxygen saturation in 2020-12-14 17:12:00 97 /min [facility] Arterial blood by [facility] Body weight 2020-12-14 10:15:00 74.481 kg [facility] [place] [facility] BMI 2020-12-14 10:15:00 24.97 kg/m2 [facility] [place] [facility] Body height 2020-12-08 04:26:00 172.7 cm [facility] [place] [facility] Systolic blood 2020-12-14 17:12:00 119 mm[Hg] Univer sity of pressure [facility] [place] [facility] Diastolic blood 2020-12-14 17:12:00 81 mm[Hg] Unive rsity of pressure [facility] [place] [facility] Heart rate 2020-12-14 17:12:00 70 /min [facility] [place] [facility] Body temperature 2020-12-14 17:12:00 36.28 Fela [facility] [place] [facility] Respiratory rate 2020-12-14 17:12:00 18 /min Univ ers[facility] of [place] [facility] Oxygen saturation in 2020-12-14 17:12:00 97 /min [facility] Arterial blood by [place] [facility] Body weight 2020-12-14 10:15:00 74.481 kg [facility] [place] [facility] BMI 2020-12-14 10:15:00 24.97 kg/m2 [facility] [place] [facility] Body height 2020-12-08 04:26:00 172.7 cm [facility] [place] [facility] Systolic blood 2020-12-02 21:59:00 139 mm[Hg] Univer sity of pressure [facility] [place] [facility] Diastolic blood 2020-12-02 21:59:00 84 mm[Hg] Unive rsity of pressure [facility] [place] [facility] Heart rate 2020-12-02 21:59:00 67 /min [facility] [place] [facility] Body height 2020-12-02 21:59:00 172.7 cm [facility] [place] [facility] Body weight 2020-12-02 21:59:00 76.204 kg [facility] [place] [facility] BMI 2020-12-02 21:59:00 25.54 kg/m2 [facility] [place] [facility] Oxygen saturation in 2020-12-02 21:59:00 99 /min [facility] Arterial blood by [employer] [facility] Systolic blood 2020-12-02 21:59:00 139 mm[Hg] Univer sity of pressure [facility] [place] [facility] Diastolic blood 2020-12-02 21:59:00 84 mm[Hg] Unive rsity of pressure [facility] [place] [facility] Heart rate 2020-12-02 21:59:00 67 /min [facility] [place] [facility] Body height 2020-12-02 21:59:00 172.7 cm [facility] [place] [facility] Body weight 2020-12-02 21:59:00 76.204 kg [facility] [place] [facility] BMI 2020-12-02 21:59:00 25.54 kg/m2 [facility] [place] [facility] Oxygen saturation in 2020-12-02 21:59:00 99 /min [facility] Arterial blood by [facility] Systolic blood 2020-10-28 17:40:00 156 mm[Hg] Univer sity of pressure [facility] [place] [facility] Diastolic blood 2020-10-28 17:40:00 85 mm[Hg] Unive rsity of pressure [facility] Heart rate 2020-10-28 17:40:00 65 /min [facility] [place] [facility] Respiratory rate 2020-10-28 17:40:00 20 /min Univ ersity of [facility] Oxygen saturation in 2020-10-28 17:40:00 97 /min [facility] of Arterial blood by [facility] Body temperature 2020-10-28 17:26:00 36.56 Fela [facility] [place] [facility] Body height 2020-10-28 16:02:00 172.7 cm [facility] [place] [facility] Body weight 2020-10-28 16:02:00 81.647 kg [facility] [place] [facility] BMI 2020-10-28 16:02:00 27.37 kg/m2 [facility] [place] [facility] Systolic blood 2020-09-24 15:13:00 155 mm[Hg] Univer sity of pressure [facility] [place] [facility] Diastolic blood 2020-09-24 15:13:00 91 mm[Hg] Unive rsity of pressure [facility] Heart rate 2020-09-24 15:12:00 58 /min [facility] [place] [facility] Respiratory rate 2020-09-24 15:12:00 18 /min Univ ersity [facility] [place] [facility] Body weight 2020-09-24 15:12:00 77.656 kg [facility] [place] [facility] BMI 2020-09-24 15:12:00 24.56 kg/m2 [facility] [place] [facility] Oxygen saturation in 2020-09-24 15:12:00 98 /min [facility] Arterial blood by [facility] Systolic blood 2020-07-15 13:40:00 158 mm[Hg] Univer sity of pressure [facility] [place] [facility] Diastolic blood 2020-07-15 13:40:00 81 mm[Hg] Unive rsity of pressure [facility] Heart rate 2020-07-15 13:40:00 63 /min [facility] [place] [facility] Oxygen saturation in 2020-07-15 13:40:00 98 /min [facility] Arterial blood by [facility] Body temperature 2020-07-15 13:21:00 36.67 Fela [facility] [place] [facility] Respiratory rate 2020-07-15 11:38:00 16 /min Univ ersity [facility] [place] [facility] Body height 2020-07-15 11:38:00 177.8 cm [facility] [place] [facility] Body weight 2020-07-15 11:38:00 72.576 kg [facility] [place] [facility] BMI 2020-07-15 11:38:00 22.96 kg/m2 [facility] [place] [facility] Systolic blood 2020-07-10 13:45:00 165 mm[Hg] Univer sity of pressure [facility] Diastolic blood 2020-07-10 13:45:00 80 mm[Hg] Unive rsity of pressure [facility] Heart rate 2020-07-10 13:45:00 68 /min [facility] [place] [facility] Respiratory rate 2020-07-10 13:45:00 15 /min Univ ersity of [place] [facility] Oxygen saturation in 2020-07-10 13:45:00 100 /min [facility] Arterial blood by [facility] Body temperature 2020-07-10 13:30:00 36.33 Fela [facility] [place] [facility] Body height 2020-07-09 14:00:00 177.8 cm [facility] [place] [facility] Body weight 2020-07-09 14:00:00 73.483 kg [facility] [place] [facility] BMI 2020-07-09 14:00:00 23.24 kg/m2 [facility] [place] [facility] Systolic blood 2020-06-25 14:49:00 200 mm[Hg] Univer sity of pressure [facility] [place] [facility] Diastolic blood 2020-06-25 14:49:00 99 mm[Hg] Unive rsity of pressure [facility] [place] [facility] Heart rate 2020-06-25 14:48:00 58 /min [facility] [place] [facility] Body height 2020-06-25 14:48:00 172.7 cm [facility] [place] [facility] Body weight 2020-06-25 14:48:00 75.297 kg [facility] [place] [facility] BMI 2020-06-25 14:48:00 25.24 kg/m2 [facility] [place] [facility] Oxygen saturation in 2020-06-25 14:48:00 98 /min [facility] Arterial blood by [place] [facility] Systolic blood 2020-05-24 20:35:00 152 mm[Hg] Univer sity of pressure [facility] [place] [facility] Diastolic blood 2020-05-24 20:35:00 92 mm[Hg] Unive rsity of pressure [facility] [place] [facility] Heart rate 2020-05-24 20:34:00 65 /min [facility] [place] [facility] [place] Body weight 2020-05-24 20:34:00 73.211 kg [facility] [place] [facility] BMI 2020-05-24 20:34:00 23.16 kg/m2 [facility] [place] [facility] Systolic blood 2020-04-22 14:45:00 166 mm[Hg] Univer sity of pressure [facility] [place] [facility] Diastolic blood 2020-04-22 14:45:00 85 mm[Hg] Unive rsity of pressure [facility] [place] [facility] Heart rate 2020-04-22 14:45:00 69 /min [facility] [place] [facility] Respiratory rate 2020-04-22 14:45:00 13 /min Univ ersity [facility] [place] [facility] Oxygen saturation in 2020-04-22 14:45:00 95 /min [facility] Arterial blood by [place] [facility] Body temperature 2020-04-22 14:15:00 36.67 Fela [facility] [place] [facility] Body height 2020-04-22 13:15:00 177.8 cm [facility] [place] [facility] Body weight 2020-04-22 13:15:00 71.668 kg [facility] [place] [facility] BMI 2020-04-22 13:15:00 22.67 kg/m2 [facility] [place] [facility] Systolic blood 2020-04-02 15:27:00 126 mm[Hg] Univer sity of pressure [facility] [place] [facility] Diastolic blood 2020-04-02 15:27:00 71 mm[Hg] Unive rsity of pressure [facility] [place] [facility] Heart rate 2020-04-02 15:27:00 84 /min [facility] [place] [facility] Respiratory rate 2020-04-02 15:27:00 16 /min [facility] [place] [facility] Body height 2020-04-02 15:27:00 177.8 cm [facility] [place] [facility] Body weight 2020-04-02 15:27:00 71.668 kg [facility] [place] [facility] BMI 2020-04-02 15:27:00 22.67 kg/m2 Universi ty of [facility] Oxygen saturation in 2020-04-02 15:27:00 98 /min [facility] Arterial blood by [place] [facility] Systolic blood 2020-01-08 15:00:00 139 mm[Hg] Univer sity of pressure [facility] Diastolic blood 2020-01-08 15:00:00 75 mm[Hg] Unive rsity of pressure [facility] Heart rate 2020-01-08 15:00:00 61 /min [facility] [place] [facility] Respiratory rate 2020-01-08 15:00:00 16 /min Univ ersity of [facility] Oxygen saturation in 2020-01-08 15:00:00 95 /min [facility] Arterial blood by [place] [facility] Body temperature 2020-01-08 14:36:00 36.44 Fela Univ ersity of [facility] Body height 2020-01-08 13:48:00 172.7 cm [facility] [place] [facility] Body weight 2020-01-08 13:48:00 72.576 kg [facility] [place] [facility] BMI 2020-01-08 13:48:00 24.33 kg/m2 [facility] [place] [facility] Systolic blood 2019-12-12 16:29:00 128 mm[Hg] Univer sity of pressure [facility] Diastolic blood 2019-12-12 16:29:00 74 mm[Hg] Unive rsity of pressure [facility] Heart rate 2019-12-12 16:29:00 57 /min [facility] [place] [facility] Respiratory rate 2019-12-12 16:29:00 16 /min Univ [facility] [place] [facility] Body height 2019-12-12 16:29:00 175.3 cm [facility] [place] [facility] Body weight 2019-12-12 16:29:00 78.744 kg [facility] [place] [facility] BMI 2019-12-12 16:29:00 25.64 kg/m2 [facility] [place] [facility] Oxygen saturation in 2019-12-12 16:29:00 98 /min [facility] Arterial blood by [facility] Systolic blood 2019-12-09 01:55:00 146 mm[Hg] Univer sity of pressure [facility] Diastolic blood 2019-12-09 01:55:00 90 mm[Hg] Unive rsity of pressure [place] [facility] [place] Heart rate 2019-12-09 01:49:00 53 /min [facility] [place] [facility] Body temperature 2019-12-09 01:49:00 36.33 Fela [facility] [place] [facility] Respiratory rate 2019-12-09 01:49:00 17 /min Univ ersity of [facility] Body height 2019-12-09 01:49:00 177.8 cm [facility] Body weight 2019-12-09 01:49:00 78.189 kg [facility] BMI 2019-12-09 01:49:00 24.73 kg/m2 [facility] Oxygen saturation in 2019-12-09 01:49:00 97 /min [facility] of Arterial blood by [facility] Systolic blood 2019-11-28 15:35:00 130 mm[Hg] Univer sity of pressure [facility] Diastolic blood 2019-11-28 15:35:00 70 mm[Hg] Unive rsity of pressure [facility] Heart rate 2019-11-28 15:35:00 55 /min [facility] [place] [facility] Body height 2019-11-28 15:35:00 177.8 cm [facility] [place] [facility] Body weight 2019-11-28 15:35:00 78.518 kg [facility] [place] [facility] BMI 2019-11-28 15:35:00 24.84 kg/m2 [facility] Oxygen saturation in 2019-11-28 15:35:00 96 /min [facility] Arterial blood by [facility] Procedures Procedure Date / Time Performing Source Performed Clinician [id number] 2021-04-08 [facility] 00:00:00 [facility] [id number] 2021-04-08 [facility] 00:00:00 [facility] [id number] 2021-04-08 [facility] 00:00:00 [facility] [id number] 2021-04-08 [facility] 00[facility]00:00 [facility] [id number] 2021-04-08 [facility] 00:00:00 [facility] [id number] 2021-04-08 [facility] 00:00:00 [facility] [id number] 2021-04-08 [facility] 00:00:00 [facility] [id number] 2021-04-08 [facility] 00:00:00 [facility] [id number] 2021-04-08 [facility] 00:00:00 [facility] [id number] 2021-04-08 [facility] 00:00:00 [facility] [id number] 2021-04-08 [facility] 00:00:00 [facility] [id number] 2021-04-08 [facility] 00:00:00 [facility] [id number] 2021-04-08 [facility] 00:00:00 [facility] [id number] 2021-04-08 [facility] 00:00:00 [facility] [id number] 2021-04-08 [facility] 00:00:00 [facility] [id number] 2021-04-08 [facility] 00:00:00 [facility] [id number] 2021-04-08 [facility] 00:00:00 [facility] [id number] 2021-04-08 [facility] 00:00:00 [facility] [id number] 2021-04-08 [facility] 00:00:00 [facility] [id number] 2021-04-08 [facility] 00:00:00 [facility] [id number] 2021-04-08 [facility] 00:00:00 [facility] POCT GLUCOSE (AUTOMATED) 2021-04-06 Humberto Reyna [facility] 16:28:00 [facility] POCT GLUCOSE (AUTOMATED) 2021-04-06 Humberto Reyna [facility] 12:33:00 [facility] MAGNESIUM 2021-04-06 [place], [facility] 08:58:00 [facility] [place] BASIC METABOLIC PANEL 2021-04-06 [facility] (NA, K, CL, CO2, GLUCOSE, 08:58:00 Medica l Branch BUN, CREATININE, CA) CBC WITH DIFF [facility]-04-[facility] 08:58:00 [facility] N-TERMINAL PRO-BNP 2021-04-06 [facility] 08:58[facility] POCT GLUCOSE (AUTOMATED) 2021-04-06 Humberto Reyna [facility] 01:30:00 [facility] POCT GLUCOSE (AUTOMATED) 2021-04-05 NicholeidZohreh nelsonbasilia [facility] [facility] 21:15:00 [facility] POCT GLUCOSE (AUTOMATED) 2021-04-05 NicholeidHumberto nelson [facility] 16:35:00 Medical Branch POCT GLUCOSE (AUTOMATED) 2021-04-05 NicholeidHumberto nelson [facility] 12:43:00 Medical Branch CBC WITH DIFF 2021-04-05 [facility] 11:12:00 Medical Branch MAGNESIUM 2021-04-05 [facility] 11:11:00 [facility] [place] BASIC METABOLIC PANEL 2021-04-05 [facility] (NA, K, CL, CO2, GLUCOSE, 11:11:00 Medica l Branch BUN, CREATININE, CA) N-TERMINAL PRO-BNP 2021-04-05 [facility] 11:11:00 Medical Branch POCT GLUCOSE (AUTOMATED) 2021-04-05 Humberto Reyna [facility] 01:28:00 Medical Branch POCT GLUCOSE (AUTOMATED) 2021-04-04 Nicholeidleslie Ilalta [facility] 21:46:00 Medical Branch POCT GLUCOSE (AUTOMATED) 2021-04-04 Humberto Reyna [facility] 16:56:00 Medical Branch POCT GLUCOSE (AUTOMATED) 2021-04-04 Humberto Reyna [facility] 12:41:00 Medical Branch MAGNESIUM 2021-04-04 [facility] 10:10:00 Medical Branch BASIC METABOLIC PANEL 2021-04-04 [facility] (NA, K, CL, CO2, GLUCOSE, 10:10:00 Medica l Branch BUN, CREATININE, CA) CBC WITH DIFF 2021-04-04 [facility] xa 10:10:00 [facility] N-TERMINAL PRO-BNP 2021-04-04 [facility] 10:10:00 [facility] PROCALCITONIN 2021-04-04 [facility] 10:10:00 [facility] POCT GLUCOSE (AUTOMATED) 2021-04-04 [facility] 00:35:00 [facility] POCT GLUCOSE (AUTOMATED) 2021-04-03 [facility] 21:37:00 Medical Branch POCT GLUCOSE (AUTOMATED) 2021-04-03 [facility] 16:48:00 [facility] POCT GLUCOSE (AUTOMATED) 2021-04-03 [facility] 12:37:00 Medical Branch MAGNESIUM 2021-04-03 [facility] 10:51:00 [facility] BASIC METABOLIC PANEL 2021-04-03 [facility] (NA, K, CL, CO2, GLUCOSE, 10:51:00 [facility] BUN, CREATININE, CA) CBC WITH DIFF 2021-04-03 [facility] xa 10:51:00 [facility] N-TERMINAL PRO-BNP 2021-04-03 [facility] 10:51:00 [facility] POCT GLUCOSE (AUTOMATED) 2021-04-03 [facility] 01:03:00 Medical Branch XR CHEST 1 VW 2021-04-03 [facility] xa 00:00:04 Medical Branch COMP. METABOLIC PANEL 2021-04-02 Nguyễn Wray [facility] ([id number]) 09:03:00 Medical Branch CBC WITH DIFF 2021-04-02 [facility] 09:03[facility] GLYCOSYLATED HEMOGLOBIN 2021-04-02 Monster Alcantar [facility] (A1C) 09:03:00 [facility] TRANSTHORACIC ECHO (TTE) 2021-04-01 Nguyễn Wray [facility] COMPLETE 19:58:17 [facility] COMP. METABOLIC PANEL 2021-04-01 Nils [facility] ([id number]) 07:40:00 Medical Branch CBC WITH DIFF 2021-04-01 [facility] 07:40:00 [facility] N-TERMINAL PRO-BNP 2021-04-01 [facility] 07:40:00 [facility] [place] MODIFIED BARIUM 2021-03-31 [facility] SWALLOW 17:16:07 [facility] BASIC METABOLIC PANEL 2021-03-31 [facility] (NA, K, CL, CO2, GLUCOSE, 09:33:00 Medica l Branch BUN, CREATININE, CA) CBC WITH DIFF 2021-03-31 [facility] xa 09:29:00 [facility] ACUTE CARE ARTERIAL BLOOD 2021-03-31 [facility] GAS 01:06:00 Medical Branch XR CHEST 1 VW 2021-03-31 [facility] 00:16:43 [facility] US GALL BLADDER 2021-03-30 [facility] x[place] 10:04:[address] ABDOMEN PELVIS WO 2021-03-30 Humberto Reyna [facility] CONTRAST 07:38:[address] [place] [address] HEAD WO CONTRAST 2021-03-30 [facility] 07:37:23 Medical Branch XR CHEST 1 VW 2021-03-30 Humberto Reyna [facility] exas 07:37:03 Medical Branch EKG-12 LEAD 2021-03-30 Humberto Reyna [facility] exas 07:07:26 Medical Branch URINALYSIS 2021-03-30 Jules Reynali [facility] [place] 07:05:00 Medical Branch URINE CULTURE 2021-03-30 Humberto Reyna [facility] ex 07:05:00 Medical Branch BLOOD CULTURE SCREEN 2021-03-30 Humberto Reyna [facility] 06:58:00 Medical Branch LIPASE 2021-03-30 [facility] 06:58:00 [facility] TROPONIN I 2021-03-30 [facility] 06:58:00 [facility] COMP. METABOLIC PANEL 2021-03-30 Humberto Reyna [facility] ([id number]) 06:58:00 Medical Branch CBC WITH DIFF 2021-03-30 [facility] 06:58:00 [facility] LACTIC ACID WHOLE BLOOD 2021-03-30 Humberto Reyna [facility] 06:58:00 [facility] COVID-19 (ID NOW RAPID 2021-03-30 [facility] 06:58:00 Medical Branch LAB ONLY COVID 2021-03-30 [facility] ex INTERPRETATION 06:58:00 Medical Branch CONSENT/REFUSAL FOR 2021-03-30 Doctor Unassigned, [facility] DIAGNOSIS AND TREATMENT 06:38:14 [facility] EMERGENCY DEPARTMENT 2021-03-30 Doctor Unassigned, [facility] DOCUMENTS 05:01:00 [place] [facility] REFERRAL- 2021-03-14 Doctor Unassigned, [facility] REQUEST/RESPONSE 05:01:00 [facility] [facility] XR CHEST 2 VW 2021-03-12 Taisha [facility] 21:23:08 Medical Branch ASSIGNMENT OF BENEFITS 2021-03-12 Doctor Unassigned, [facility] 21:10:54 [facility] HOME HEALTH - OTHER 2021-03-03 Doctor Unassigned, [facility] 05:01:00 [facility] [facility] HOME HEALTH - OTHER 2021-02-06 Doctor Unassigned, [facility] 05:01:00 [facility] [facility] POCT URINALYSIS 2021-01-18 Jasen, [facility] De [facility] [place] 18:21:00 [facility] Branch XR ELBOW <3 VW RIGHT 2020-12-16 Vira Henriquez [facility] 16:31:[address] CERVICAL SPINE WO 2020-12-16 Vira Henriquez [facility] CONTRAST 16:17:[address] HEAD WO CONTRAST 2020-12-16 Vira Henriquez [facility] 16:17:23 Medical Branch ASSIGNMENT OF BENEFITS 2020-12-16 Doctor Unassigned, [facility] 15:20:42 [facility] NOTICE OF PRIVACY 2020-12-16 Doctor Unassigned, [facility] PRACTICES 15:20:09 [facility] [place] CONSENT/REFUSAL FOR 2020-12-16 Doctor Unassigned, [facility] DIAGNOSIS AND TREATMENT 15:19:57 [facility] [place] POCT GLUCOSE (AUTOMATED) 2020-12-14 Margarita Case [facility] 17:15:00 Medical Branch POCT GLUCOSE (AUTOMATED) 2020-12-14 Margarita Case [facility] 13:50:00 Medical Branch XR ABDOMEN 1 VW 2020-12-14 [facility] 01:33:55 Medical Branch POCT GLUCOSE (AUTOMATED) 2020-12-13 Margarita Case [facility] 23:15:00 Medical Branch XR CHEST 1 VW 2020-12-13 [facility] 23:00:17 Medical Branch BASIC METABOLIC PANEL 2020-12-13 [facility] (NA, K, CL, CO2, GLUCOSE, 19:48:00 Medica l Branch BUN, CREATININE, CA) CBC WITH DIFF 2020-12-13 [facility] 19:48:00 Medical Branch POCT GLUCOSE (AUTOMATED) 2020-12-13 Margarita Case [facility] 17:17:00 Medical Branch POCT GLUCOSE (AUTOMATED) 2020-12-13 Evie [facility] [address] 13:52:00 Medical Branch POCT GLUCOSE (AUTOMATED) 2020-12-12 Margarita Case [facility] 23:15:00 Medical Branch POCT GLUCOSE (AUTOMATED) 2020-12-12 [facility] 17:55[facility]00 [facility] POCT GLUCOSE (AUTOMATED) 2020-12-12 [facility] 14:14:00 [facility] BASIC METABOLIC PANEL 2020-12-12 [facility] (NA, K, CL, CO2, GLUCOSE, 09:48:00 [facility] BUN, CREATININE, CA) CBC WITH DIFF 2020-12-12 [facility] xa 09:48:00 [facility] N-TERMINAL PRO-BNP 2020-12-12 [facility] 09:48:00 [facility] POCT GLUCOSE (AUTOMATED) 2020-12-11 [facility] 23:13:00 [facility] POCT GLUCOSE (AUTOMATED) 2020-12-11 [facility] 17:59:00 [facility] POCT GLUCOSE (AUTOMATED) 2020-12-11 [facility] 13:59:00 [facility] BASIC METABOLIC PANEL 2020-12-11 [facility] (NA, K, CL, CO2, GLUCOSE, 08:57:00 [facility] BUN, CREATININE, CA) CBC WITH DIFF 2020-12-11 [facility] [address] xas 08:57:00 [facility] N-TERMINAL PRO-BNP 2020-12-11 [facility], [facility] 08:57:00 [facility] URINALYSIS 2020-12-10 Evie, [facility] [address] xas 17:48:00 [facility] URINE CULTURE 2020-12-10 Evie, [facility] [address] xas 17:48:00 [facility] XR CHEST 1 VW 2020-12-10 [facility], [facility] [address] xas 13:30:33 [facility] BLOOD CULTURE SCREEN 2020-12-10 [facility], [facility] 10:48:00 [facility] MAGNESIUM 2020-12-10 Evie, [facility] [address] xas 10:48:00 [facility] HEPATIC FUNCTION PANEL 2020-12-10 [facility] ([id number]) (ALB,T.PRO,BILI 10:48:00 Medical Branch T,BU/BC,ALT,AST,ALK PHOS) BASIC METABOLIC PANEL 2020-12-10 [facility], [facility] (NA, K, CL, CO2, GLUCOSE, 10:48:00 [facility] BUN, CREATININE, CA) CBC WITH DIFF 2020-12-10 [facility], [facility] [address] [place] 10:48:00 [facility] N-TERMINAL PRO-BNP 2020-12-10 [facility], [facility] 10:48:00 [facility] BLOOD CULTURE SCREEN 2020-12-10 [facility], [facility] 10:43:00 [facility] URIC ACID 2020-12-09 [facility], [facility] [address] xas 07:50:00 [facility] MAGNESIUM 2020-12-09 Evie, [facility] [address] xas 07:50:00 [facility] BILI UNCONJUGATED/BILI 2020-12-09 [facility], [facility] CONJUG 07:50:00 [facility] COMP. METABOLIC PANEL 2020-12-09 Nguyễn Wray [facility] ([id number]) 07:50:00 [facility] CBC WITH DIFF 2020-12-09 [facility], [facility] [address] xas 07:50:00 [facility] N-TERMINAL PRO-BNP 2020-12-09 [facility], [facility] 07:50:00 [facility] POCT GLUCOSE (AUTOMATED) 2020-12-09 [facility] 03:48:00 [facility] XR ABDOMEN 1 VW 2020-12-09 [facility], [facility] [address] [place] 02:27:22 [facility] PHOSPHORUS 2020-12-08 [facility], [facility] [address] [place] 11:03:00 [facility] URIC ACID 2020-12-08 [facility], [facility] [address] xas 11:03:00 [facility] MAGNESIUM 2020-12-08 [facility], [facility] [address] xas 11:03:00 [facility] HEPATIC FUNCTION PANEL 2020-12-08 [facility] ([id number]) (ALB,T.PRO,BILI 11:03:00 [facility] T,BU/BC,ALT,AST,ALK PHOS) BASIC METABOLIC PANEL 2020-12-08 [facility] (NA, K, CL, CO2, GLUCOSE, 11:03:00 [facility] BUN, CREATININE, CA) SEDIMENTATION RATE 2020-12-08 [facility] 11:03:00 [facility] CBC WITH DIFF 2020-12-08 Evie [facility] [address] [place] 11:03:00 [facility] N-TERMINAL PRO-BNP 2020-12-08 Evie, [facility] 11:03:00 [facility] LACTIC ACID WHOLE BLOOD 2020-12-08 [facility] 11:03:00 [facility] PROTHROMBIN TIME / INR 2020-12-08 [facility], [facility] 07:27:00 [facility] LACTIC ACID WHOLE BLOOD 2020-12-08 Evie, [facility] 07:27:00 [facility] PROCALCITONIN 2020-12-08 Evie [facility] [address] x[place] 07:27:[address] [facility] CT ABDOMEN PELVIS WO 2020-12-08 Evie [facility] CONTRAST 07:16:40 [facility] LACTIC ACID WHOLE BLOOD 2020-12-08 [facility] 01:55:00 [facility] COVID-19 (MOLECULAR 2020-12-08 [facility] 01:55[facility]00 [facility] NUCLEIC ACID AMPLIFICATION) LAB ONLY COVID 2020-12-08 [facility] INTERPRETATION 01:55:00 [facility] URINALYSIS 2020-12-08 [facility] 01:35:00 [facility] URINE CULTURE 2020-12-08 [facility] 01:35:00 [facility] BLOOD CULTURE SCREEN 2020-12-07 [facility] 23:15:00 [facility] BLOOD CULTURE WORKUP 2020-12-07 Mehrdad [facility] 23:15:00 [facility] GRAM NEGATIVE BLOOD 2020-12-07 [facility] PATHOGENS DNA 23:15:00 [facility] PROBE-AEROBIC XR CHEST 1 VW 2020-12-07 Mehrdad [facility] exas 23:12:26 [facility] LACTIC ACID WHOLE BLOOD 2020-12-07 [facility] 22:59:00 Medical Branch BLOOD CULTURE SCREEN 2020-12-07 [facility] 22:58:00 Medical Branch PHOSPHORUS 2020-12-07 Evie, [facility] [address] [place] 22:58:00 Medical Branch CREATINE KINASE 2020-12-07 Evie, [facility] [address] xas 22:58:00 Medical Branch URIC ACID 2020-12-07 Evie, [facility] [address] x[place] 22:58:00 Medical Branch MAGNESIUM 2020-12-07 Evie, [facility] [address] x[place] 22:58:00 Medical Branch TROPONIN I 2020-12-07 [facility] 22:58:00 Medical Branch THYROID STIMULATING 2020-12-07 Evie, [facility] HORMONE 22:58:00 Medical [place] HEPATIC FUNCTION PANEL 2020-12-07 [facility] ([id number]) (ALB,T.PRO,BILI 22:58:00 Medical Branch T,BU/BC,ALT,AST,ALK PHOS) BASIC METABOLIC PANEL 2020-12-07 [facility] (NA, K, CL, CO2, GLUCOSE, 22:58:00 Medica Branch BUN, CREATININE, CA) LIPID PANEL ([id number])(TOTAL 2020-12-07 [facility] CHOLESTEROL, 22:58:00 [facility] TRIGLYCERIDES, HDL) CBC WITH DIFF 2020-12-07 [facility] 22:58:00 [facility] GLYCOSYLATED HEMOGLOBIN 2020-12-07 [facility] (A1C) 22:58:00 [facility] N-TERMINAL PRO-BNP 2020-12-07 [facility] 22:58:00 [facility] Branch COVID-19 (ID NOW RAPID 2020-12-07 [facility] TESTING) 22:58:00 Medical Branch LAB ONLY COVID 2020-12-07 [facility] INTERPRETATION 22:58:00 Medical Branch HB ECG ROUTINE & RHYTHM 2020-12-07 Celi Cronin [facility] STRIP 22:48:20 Medical Branch FL TIME OR 2020-10-28 Camacho Lazar [facility] xa (NON-REPORTABLE) 17:21:54 Medical Branch ASSIGNMENT OF BENEFITS 2020-10-28 Doctor Unassigned, [facility] 15:33:20 [facility] DISCLOSURE AND CONSENT, 2020-09-24 Doctor Unassigned, [facility] MEDICAL AND SURGICAL 06:01:00 [facility] PROCEDURES [place] TIME OR 2020-07-15 Charles Crenshaw [facility] (NON-REPORTABLE) 13:17:48 Medical Branch DAY SURGERY - VICTORY 2020-07-15 Doctor Unassrosita [facility] [place] 05:01:00 [facility] [facility] COLONOSCOPY (ENDO) 2020-07-10 Bowen Donahue [facility] 12:47:38 Medical Branch NOTICE OF PRIVACY 2020-07-09 Doctor Unassigned, [facility] PRACTICES 16:05:22 [place] [facility] CONSENT/REFUSAL FOR 2020-07-09 [facility] DIAGNOSIS AND TREATMENT 16:05:10 [facility] [facility] ASSIGNMENT OF BENEFITS 2020-07-09 Doctor Unassrosita, [facility] 16:04:50 [facility] [place] MODIFIED BARIUM 2020-06-26 Jim Cook [facility] SWALLOW 18:54:41 C Medical Branch CONSENT/REFUSAL FOR 2020-06-26 [facility] DIAGNOSIS AND TREATMENT 18:08:02 [facility] [facility] ASSIGNMENT OF BENEFITS 2020-06-26 Doctor Unassigned, [facility] 18:07:34 [facility] [facility] DISCLOSURE AND CONSENT, 2020-06-25 Doctor Unassigned, [facility] MEDICAL AND SURGICAL 05:01:00 [facility] PROCEDURES DSU PRE-OP 2020-06-12 Doctor Unaeuniceigned, [facility] 05:01:00 [place] [facility] PHYSICIAN ORDERS 2020-05-30 Doctor Unassigned, [facility] 05:01:00 [facility] FL TIME OR 2020-04-22 Denia Aguirre [facility] [place] (NON-REPORTABLE) 14:08:43 [facility] Medical Branch ASSIGNMENT OF BENEFITS 2020-04-22 Doctor Unassigned, [facility] 12:57:06 [facility] [facility] FL TIME OR 2020-01-08 Tracy Ryan [facility] x[facility] (NON-REPORTABLE) 14:28:40 Medical Branch RETROPERITONEAL 2019-12-19 Ness Veronicasunil [facility] LIMITED 15:57:12 Medical Branch NOTICE OF PRIVACY 2019-12-19 Doctor Unassigned, [facility] PRACTICES 14:56:13 [place] [facility] CONSENT/REFUSAL FOR 2019-12-19 Doctor Unassigned, [facility] DIAGNOSIS AND TREATMENT 14:55:38 [place] [facility] ASSIGNMENT OF BENEFITS 2019-12-19 Doctor Unassigned, [facility] 14:55:16 [facility] [facility] DISCLOSURE AND CONSENT, 2019-12-12 Doctor Unassigned, [facility] MEDICAL AND SURGICAL 06:01:00 [facility] [facility] PROCEDURES MR LUMBAR SPINE WO 2019-12-05 [facility] CONTRAST 17:03:02 Medical Branch CONSENT/REFUSAL FOR 2019-12-05 Doctor Unassigned, [facility] DIAGNOSIS AND TREATMENT 16:02:19 [place] [facility] ASSIGNMENT OF BENEFITS 2019-12-05 Doctor Unassigned, [facility] 16:02:00 [place] [facility] DISCLOSURE AND CONSENT, 2019-05-10 Doctor Unassigned, [facility] MEDICAL AND SURGICAL 05:01:00 [facility] PROCEDURES Encounters Start End Encounter Admission Attending Care Care Encounter Source Date/Time Date/Time Type Type Clinicians Facility Department ID 2021-11-20 Outpatient [id number] [facility] REF [id number] [facility] 12:19:18 [facility] [place] 2021-11-20 Outpatient 3 CARLO RDZ CRD [facility] 11:37:20 NADIA 0223 [facility] [place] 2021-11-20 Outpatient 3 [id number] ENCPL REF [id number] [facility] 11:36:38 0222 [facility] [place] 2021-08-24 Emergency [facility] [id number] Univers 23:23:35 [facility] [facility] 2021-08-24 Emergency [facility] [id number] Univers 00:24:23 rissa [facility] 2021-08-23 Outpatient R DAQUAN [facility] DSU [id number] Univers 12:40:42 ELLIOT [facility] 2021-08-22 Outpatient R TOÑO [facility] ZOILA [id number] Univers 17:33:44 E, JIM rissa [facility] 2021-08-22 Outpatient [facility] [id number] Univers 12:21:10 E, JIM barnes [facility] 2021-07-24 2021-07-24 Outpatient R DAQUAN [facility] [id number] Univers 10:00:00 10:00:00 ELLIOT barnes [facility] 2021-06-12 2021-06-12 Outpatient R TOÑO SENA [facility] [id number] Univers 15:00:00 15:00:00 TOÑO SENA i [facility] 2021-04-18 2021-04-18 Outpatient Myrna, HCAPM RADI [id number] [facility] 20:04:00 20:04:00 Nadia 13 [facility] 2021-04-16 2021-04-16 Outpatient Myrna, HCAPM RADI [id number] [facility] 10:05:00 10:05:00 Nadia 81 [facility] 2021-04-15 2021-04-15 Outpatient Mary Jane, HCAPM LABO [id number] [facility] 19:46:00 19:46:00 Shayy 71 [facility] 2021-04-08 2021-04-08 Transition Callie Davis [id number] 00:00:00 00:00:00 of Care Magdalenaalexis Valencia [id number] [place] [id number] [facility] 2021-04-08 2021-04-08 Transition Callie Davis [id number] Univers 00:00:00 00:00:00 of Care Magdalenaalexis [place] [id number] [id number] [id number] [address] 2021-03-30 2021-04-06 [facility] 1.2.840. [id number] 01:37:00 13:48:00 Encounter Jann Hamlinbrodie Ayala [id number] [place] [id number] [place] [id number] 2021-03-30 2021-04-06 [facility] 1.2.840. [id number] [facility] 01:37:00 13:48:00 Encounter Jann Hamlinbrodie Ayala [id number] [facility] [place] 4.2.7.2.686 [facility] [id number] [facility] 081 Branch 2021-03-28 2021-03-28 Outpatient Vincent BUTT [facility] [id number] Univers 09:30:00 09:30:00 ELLIOT barnes [facility] 2021-03-21 2021-03-21 Outpatient DIANDRA Veronica [facility] [id number] [facility] 15:45:52 15:45:[address] [facility] 2021-03-14 2021-03-14 Orders Doctor CARDONA [id number] 00:00:00 00:00:00 Only Unassigned, JASMIN [id number] [place] [id number] 2021-03-14 2021-03-14 Orders Doctor CARDONA [id number] Univers 00:00:00 00:00:00 Only Unassigned, JASMIN [id number] ity of [place] [facility] [id number] [place] [id number] [facility] 009 Branch 2021-03-12 2021-03-12 [facility] [id number] 16:13:03 23:59:00 Encounter Taisha Lucy [id number] [place] [id number] [place] [address] [id number] 2021-03-12 2021-03-12 [facility] [id number] Univers 16:13:03 23:59:00 Encounter Taisha Ayala [id number] ity of [place] 4.2.7.2.686 [place] [facility] [id number] [facility] 807 Branch 2021-03-12 2021-03-12 [facility] [id number] Univers 00:00:00 00:00:00 TAISHA meyery o f [facility] 2021-03-12 2021-03-12 Orders Doctor CARDONA 1.2.840.114 [id number] 00:00:00 00:00:00 Only Unassigned, JASMIN 350.1.13.10 Rosine [facility] 4.2.7.2.686 [id number] 009 2021-03-12 2021-03-12 Orders Doctor CARDONA 1.2.840.114 [id number] Univers 00:00:00 00:00:00 Only Unassigned, JASMIN 350.1.13.10 ity of [place] [facility] 4.2.7.2.686 Robe as [phone] [address] 2021-03-03 2021-03-03 Outpatient [facility] [id number] Univers 00:00:00 00:00:00 ity of [facility] 2021-03-03 2021-03-03 Orders Doctor CARDONA 1.2.840.114 [id number] 00:00:00 00:00:00 Only Unassigned, JASMIN 350.1.13.10 Rosine [facility] 4.2.7.2.686 [phone] 009 2021-03-03 2021-03-03 Orders Doctor CARDONA 1.2.840.114 [id number] 10 Univers 00:00:00 00:00:00 Only Unassigned, JASMIN 350.1.13.10 ity of [place] [facility] 4.2.7.2.686 Robe as [phone] [address] 2021-02-06 2021-02-06 Outpatient [facility] [id number] Univers 00:00:00 00:00:00 ity [facility] 2021-02-06 2021-02-06 Orders Doctor BRENDAN 1.2.840.114 [id number] 00:00:00 00:00:00 Only Unassigned, JASMIN 350.1.13.10 Rosine [facility] 4.2.7.2.686 [phone] 009 2021-02-06 2021-02-06 Orders Doctor BRENDAN 1.2.840.114 [id number] Univers 00:00:00 00:00:00 Only Unassigned, JASMIN 350.1.13.10 ity of [place] [facility] 4.2.7.2.686 Robe as [phone] [address] 2021-01-29 2021-01-29 Outpatient TESSY SmithWDevang [facility] [id number] [facility] 11:07:00 11:07:[address] [facility] 2021-01-18 2021-01-18 Urgent Provider, [facility] 1.2.875.287 [id number] 7624 13:05:30 13:48:58 Care [facility] 350.1.13.10 Care [place] 4.2.7.2.686 Professio [phone] nal [facility] Office Building One 2021-01-18 2021-01-18 Urgent Provider, [facility] 1.2.840.114 [id number] Univers 13:05:30 13:48:58 Care Jasen, [facility] 350.1.13.10 ity of [place] 4.2.7.2.686 Robe as Professio [phone] Mn dical [address] Office Building One 2021-01-18 2021-01-18 Outpatient Vincent GOMES [facility] [id number] Univers 13:20:00 13:20:00 JOSE DE JESUS [facility] 2020-12-31 2020-12-31 Outpatient Vincent BUTT [facility] [id number] Univers 10:30:00 10:30:00 ELLIOT [facility] 2020-12-28 2020-12-28 Outpatient [facility] [id number] Univers 13:35:00 13:35:[facility] 2020-12-23 2020-12-23 Telephone Sher [facility] 1.2.981.948 [id number] 00:00:00 00:00:00 Vicky Ayala 350.1.13.10 [place] 4.2.7.2.686 Professio [phone] nal 059 [facility] 2020-12-23 2020-12-23 Kaleva Sher, [facility] 1.2.913.256 1099 5633 [facility] 00:00:00 00:00:00 Vicky Ayala 350.1.13.10 ity of [place].2.7.2.686 [place] [facility] [phone] Mn dical nal 059 [facility] 2020-12-21 2020-12-21 Outpatient MARY JANE, [facility] LABO [id number] [facility] 11:15:00 11:15:00 SHAYY 06 [facility] 2020-12-16 2020-12-16 [facility] 1.2.840.114 [id number] 09:13:00 12:14:00 Vira Ayala 350.1.13.10 [place] 4.2.7.2.686 [place] [phone] 084 2020-12-16 2020-12-16 Emergency [facility] 1.2.840.114 [id number] [facility] 09:13:00 12:14:00 Vira Ayala 350.1.13.10 ity of [place].2.7.2.686 [place] [phone] [facility] [address] 2020-12-16 2020-12-16 Transition Callei Davis 1.2.840.114 [id number] 00:00:00 00:00:00 of Care Magdalena Valencia 350.1.13.10 [place] [phone] 403 2020-12-16 2020-12-16 Transition Callie Davis 1.2.840.114 [id number] Univers 00:00:00 00:00:00 of Care Magdalena Valencia 350.1.13.10 it y of [place] 4.2.7.2.686 [place] [phone] [facility] [address] 2020-12-07 2020-12-14 Hospital Celi Cronin [facility] 1.2.840. 114 [id number] 16:40:00 14:30:00 Encounter Margarita Case 350.1.13.10 [place] 4.2.7.2.686 [facility] [phone] [facility] 2020-12-07 2020-12-14 [facility] Celi Cronin [facility] 1.2.840. 114 [id number] Univers 16:40:00 14:30:00 Encounter Margarita Case 350.1.13.10 ity [place] 4.2.7.2.686 [place] [facility] [phone] [address] 2020-12-07 2020-12-14 Inpatient X EVIE [facility] [id number] Univers 16:40:00 14:30:00 MARGARITA [facility] 2020-12-02 2020-12-02 [facility] 1.2.840.114 [id number] 15:47:20 16:24:08 Visit Gio Ayala 350.1.13.10 [place] 4.2.7.2.686 Professio [phone] [address] 2020-12-02 2020-12-02 Office Leah [facility] 1.2.840.114 [id number] Univers 15:47:20 16:24:08 Visit Gio Ayala 350.1.13.10 itrissa [place] 4.2.7.2.686 [facility] Professio [phone] Mn dical [address] 2020-12-02 2020-12-02 Outpatient GIO ADDISON [facility] [id number] Univers 15:40:00 15:40:00 GIO MEREDITH [facility] 2020-11-30 2020-11-30 Outpatient [facility] [id number] Univers 13:30:00 13:30:00 molly [facility] 2020-11-25 2020-11-25 Outpatient GIO ADDISON [facility] [id number] Univers 09:20:00 09:20:00 GIO MEREDITH ity of [facility] 2020-11-01 2020-11-01 Refjuan Meredith [facility] 1.2.840.114 [id number] Univers 00:00:00 00:00:00 Gio Ayala 350.1.13.10 ity of [place] 4.2.7.2.686 [place] [facility] [phone] Mn dical nal 092 [address] [facility] 2020-10-31 2020-10-31 Patient Doctor [facility] 1.2.840.114 [id number] Univers 00:00:00 00:00:00 Secure Msg Unassigned, HEALTH 350.1.13.10 ity of [place] 4.2.7.2.686 [place] [facility] [phone] [facility] & [address] [facility] 2020-10-28 2020-10-28 Hospital Daquan [facility] 1.2.840.114 [id number] Univers 09:34:00 11:45:00 Encounter Elliot SPECIALTY 350.1.13.10 ity of [facility] 4.2.7.2.686 [place] AT [phone] Mn dical VICTORY 020 [facility] 2020-10-28 2020-10-28 Orders Doctor BRENDAN 1.2.840.114 [id number] Univers 00:00:00 00:00:00 Only Unassigned, JASMIN 350.1.13.10 ity of [place] [facility] 4.2.7.2.686 Robe as [phone] [facility] [address] 2020-10-25 2020-10-25 Laboratory Only, Robe Test [facility] 1.2.840. 114 [id number] Univers 16:17:10 16:28:43 Only Daquan Elliot [facility] 350.1.13.1 0 ity of [place] 4.2.7.2.[place] [facility] [phone] [facility] 357 [facility] 2020-10-25 2020-10-25 Outpatient R DAQUAN [facility] [id number] Univers 16:00:00 16:00:00 ELLIOT ity [facility] 2020-09-24 2020-09-24 Office [facility] 1.2.840.114 [id number] Univers 08:52:04 10:12:31 Visit Elliot CHILD 350.1.13.10 ity of [place].2.7.2.686 [place] C[place] [phone] [facility] AND [place] [address] [place] [facility] 2020-09-24 2020-09-24 Outpatient [facility] [id number] Univers 09:00:00 09:00:00 ELLIOT itrissa of [facility] 2020-08-30 2020-08-30 Refjuan [facility] 1.2.840.114 [id number] Univers 00:00:00 00:00:00 Elliot CHILD 350.1.13.10 ity of [place].2.7.2.[place] C[place] [phone] [facility] [place] [address] [place] [facility] 2020-08-28 2020-08-28 Cande [facility] 1.2.840.114 [id number] Univers 00:00:00 00:00:00 Gio Ayala 350.1.13.10 ity of [place] 4.2.7.2.686 [place] [facility] [phone] Mn elisabet martinez 092 [facility] 2020-07-16 2020-07-16 Telephone MonteroFormerly [facility] 1.2.650.301 [id number] 2837 Univers 00:00:00 00:00:00 Bebeto CHILD 350.1.13.10 ity of [place].2.7.2.686 [place] C[place] [phone] [facility] [place] [address] [place] [facility] 2020-07-15 2020-07-15 [facility] 1.2.840.114 [id number] Univers 06:17:00 09:00:00 Encounter Elliot LOPEZ 350.1.13.10 ity of [place] 4.2.7.2.686 [place] C[place] AT [phone] Mn elisabet MULLINSY 020 [facility] 2020-07-15 2020-07-15 Outpatient R [facility] VLS [id number] Univers 08:24:00 08:24:00 ELLIOT barnes of [facility] 2020-07-15 2020-07-15 Orders Doctor BRENDAN 1.2.840.114 [id number] Univers 00:00:00 00:00:00 Only Unassigned, JASMIN 350.1.13.10 ity of [place] [facility] 4.2.7.2.686 Robe as [phone] [facility] [address] [place] 2020-07-12 2020-07-12 Outpatient R DAQUAN [facility] [id number] Univers 14:00:00 14:00:00 ELLIOT itrissa of [facility] 2020-07-12 2020-07-12 Laboratory Only, Adc Test [facility] 1.2.840. 114 [id number] Univers 12:47:57 13:02:57 Only Elliot Butt 350.1.13. 10 ity of [place] 4.2.7.2.686 [place] [phone] [facility] [address] [place] 2020-07-10 2020-07-10 [facility] 1.2.840.114 [id number] Univers 07:25:00 08:54:00 Encounter Jim pepe 350.1.13.10 ity of [place] 4.2.7.2.686 [place] Surgical [phone] [facility] [address] [place] 2020-07-09 2020-07-09 Outpatient R [facility] [id number] Univers 12:15:00 12:15:00 JIM Pepe o f [facility] 2020-07-09 2020-07-09 Laboratory Only, Adc Test [facility] 1.2.840. 114 [id number] Univers 11:05:07 11:20:07 Only Jim Cook 350.1.1 3.10 ity of [place] 4.2.7.2.686 [place] [phone] [facility] [address] [place] 2020-06-26 2020-06-26 [facility] 1.2.840.114 [id number] Univers 13:00:00 23:59:00 Encounter Jim pepe 350.1.13.10 ity of [place] 4.2.7.2.686 [place] [phone] [facility] [address] 2020-06-26 2020-06-26 Ancillary Jasmyne De La Rosa [facility] 1.2.8 40.114 [id number] Univers 14:46:04 15:31:04 Visit Elio Richardson 350.1.13.10 ity of [place] 4.2.7.2.686 [place] [facility] [phone] Mn dical [facility] [address] Building 2020-06-26 2020-06-26 Outpatient R DEBRA [facility] [id number] Univers 14:15:00 14:15:00 ELIO barnes [facility] 2020-06-26 2020-06-26 Outpatient R TOÑO [facility] [id number] [id number] Univers 00:00:00 00:00:00 JIM Pepe o f [facility] 2020-06-25 2020-06-25 Office Daquan [facility] 1.2.840.114 [id number] Univers 09:34:20 11:21:20 Visit Elliot CHILD 350.1.13.10 ity of [place]2.7.2.686 [place] C[place] [phone] [facility] AND [place] [address] [facility] 2020-06-25 2020-06-25 Outpatient R DAQUAN [facility] [id number] Univers 09:30:00 09:30:00 ELLIOT barnes [facility] 2020-06-25 2020-06-25 Prep For Robinson [facility] 1.2.840.114 [id number] Univers 00:00:00 00:00:00 Surgery Dany CHILD 350.1.13.10 ity of [place]2.7.2.[place] [phone] [facility] AND [place] [address] [facility] 2020-06-12 2020-06-12 Orders Doctor CARDONA 1.2.840.114 [id number] Univers 00:00:00 00:00:00 Only Unassigned, JASMIN 350.1.13.10 ity of [place] [facility] 4.2.7.2.686 Robe as [phone] [facility] [address]9 [address] 2020-06-07 2020-06-07 Telephone Rj [facility] 1.2.840.114 [id number] Univers 00:00:00 00:00:00 Jasmyne Ayala 350.1.13.10 ity of [place].2.7.2.[place] Profess[place] [phone] Mn dical nal 145 [facility] 2020-05-30 2020-05-30 Film Coater [facility] Main [facility] 1.2.8 40.114 [id number] Univers 15:11:19 15:26:19 Visit Jim Cook 350.1.1 3.10 ity of [place] 4.2.7.2.686 [place] Profess[place] [phone] Mn dical nal 353 [facility] 2020-05-30 2020-05-30 Outpatient R TOÑO [facility] [id number] Univers 15:15:00 15:15:00 JIM Pepe f [facility] 2020-05-30 2020-05-30 Telephone Rj [facility] 1.2.840.114 [id number] Univers 00:00:00 00:00:00 Jasmyne Lucy 350.1.13.10 ity of [place] 4[place]2.7.2.686 [place] Profess[place] [phone] Mn dical nal 145 [facility] 2020-05-30 2020-05-30 Orders Doctor BRENDAN 1.2.840.114 [id number] Univers 00:00:00 00:00:00 Only Unassigned, JASMIN 350.1.13.10 ity of [place] [facility] 4.2.7.2.686 Robe as [phone] [address] 2020-05-24 2020-05-24 Office Leah [facility] 1.2.840.114 [id number] Univers 15:14:55 16:00:27 Visit Gio Ayala 350.1.13.10 ity of [place] 4.2.7.2.686 [place] Profess[place] [phone] Mn dical nal 092 [facility] 2020-05-24 2020-05-24 Outpatient R GIO MEREDITH [facility] [id number] Univers 15:20:00 15:20:00 GIO MEREDITH ity of [facility] 2020-04-22 2020-04-22 [facility] [id number] Univers 15:38:00 15:38:00 ELLIOT ity of [facility] 2020-04-22 2020-04-22 Hospital Daquan [facility] 1.2.840.114 [id number] Univers 07:56:00 09:54:00 Encounter Elliot Hicks 350.1.13.10 ity of [place] 4.2.7.2.686 [facility] [phone] [address] ([facility]) 2020-04-22 2020-04-22 Orders Doctor BRENDAN 1.2.840.114 [id number] Univers 00:00:00 00:00:00 Only Unassigned, JASMIN 350.1.13.10 ity of [facility] 4.2.7.2.686 [facility] [place] [facility] [phone] [place] [address] Branch 2020-04-19 2020-04-19 Laboratory Only, Adc Test [facility] 1.2.840. 114 [id number] Univers 09:46:35 11:01:51 Only Андрей Weiss 350.1.13.10 ity of [place] 4.2.7.2.686 [facility] [phone] [place] [address] Branch 2020-04-19 2020-04-19 Outpatient R АНДРЕЙ WEISS [facility] [id number] Univers 09:30:00 09:30:00 ity of [facility] 2020-04-19 2020-04-19 Outpatient R АНДРЕЙ WEISS [facility] [id number] Univers 09:30:00 09:30:00 ity of [facility] 2020-04-02 2020-04-02 Office [facility] 1.2.840.114 [id number] Univers 09:52:51 12:21:25 Visit Elliot CHILD 350.1.13.10 ity of [place] 4.2.7.[address] [place] [phone] [facility] 2020-04-02 2020-04-02 Outpatient R DAQUAN [facility] [id number] Univers 10:30:00 10:30:00 ELLIOT barnes [facility] 2020-03-21 2020-03-21 Cande Meredith [facility] 1.2.840.114 [id number] Univers 00:00:00 00:00:00 Gio Ayala 350.1.13.10 ity of [place].2.[place] [facility] [phone] [address] 2020-03-13 2020-03-13 Refjuan [facility] 1.2.840.114 [id number] Univers 00:00:00 00:00:00 Elliot MULTISPEC 350.1.13.10 ity of [place]2.7.2.686 [place] C[place] [phone] [address] [facility] 2020-03-07 2020-03-07 Telephone [facility] 1.2.113.527 [id number] Univers 00:00:00 00:00:00 Elliot MULTISPEC 350.1.13.10 ity of [place]2.7.2.[place] [phone] [address] [facility] 2020-02-07 2020-02-07 Outpatient R [facility] [id number] Univers 11:00:00 11:00:00 ELLIOT ity [facility] 2020-02-07 2020-02-07 Telemedici [facility] 1.2.840.114 [id number] Univers 08:13:21 08:43:21 ne Visit Elliot CHILD 350.1.13.10 ity of [place]2.7.2.686 [place] [phone] [address] [facility] 2020-01-08 2020-01-08 Outpatient R [facility]SU [id number] Univers 08:20:00 10:21:00 ELLIOT ity of [facility] 2020-01-08 2020-01-08 [facility] 1.2.840.114 [id number] Univers 08:20:00 10:21:00 Encounter [facility] 350.1.13.10 ity of [place]2.7.2.686 [place] [facility] [phone] [address] ([facility]) 2019-12-19 2019-12-19 Outpatient R RADIOLOGY [facility] [id number] Univers 09:01:16 23:59:00 ity of [facility] 2019-12-19 2019-12-19 Hospital Radiology [facility] 1.2.840.114 [id number] Univers 09:01:00 23:59:00 Encounter Lucy 350.1.13.10 ity of [place] 4.2.7.2.686 [facility] [phone] [facility] [address] [place] 2019-12-12 2019-12-12 Office [facility] 1.2.840.114 [id number] Univers 10:12:57 11:33:05 Visit Elliot CHILD 350.1.13.10 ity of [place] 4.2.7.[address] [place] [address] [phone] [facility] AND [address] [facility] 2019-12-12 2019-12-12 Outpatient R [facility] [id number] Univers 10:00:00 11:33:05 ELLIOT ity of [facility] 2019-12-08 2019-12-08 Urgent Marli Leiva [facility] 1.2.840.114 [id number] Univers 19:46:07 21:02:47 Care Unknown, Attending Health 350.1.13.10 ity of [place] Surgical 4.2.7.2.[address] [place] [address] [phone] Mn dical es 370 [facility] 2019-12-05 2019-12-05 Outpatient R [facility] [id number] Univers 10:06:22 23:59:00 ELLIOT ity of [facility] 2019-12-05 2019-12-05 [facility] 1.2.840.114 [id number] Univers 10:06:00 23:59:00 Encounter Elliot Ayala 350.1.13.10 ity of [place] 4.2.7.2.686 [facility] [phone] [facility] [address] [place] 2019-11-29 2019-11-29 Telephone [facility] 1.2.263.703 [id number] 0461 Univers 00:00:00 00:00:00 Elliot CHILD 350.1.13.10 ity of [place]2.7.2.686 [place] [phone] [facility] [place] [address] [facility] 2019-11-28 2019-11-28 Office Daquan STORMYLAURIE 1.2.840.114 [id number] [facility] 09:03:19 10:23:33 Visit Elliot CHILD 350.1.13.10 ity of [place].2.7.2.686 [place] [phone] [facility] [address] [place] [facility] 2019-05-10 2019-05-10 Orders Doctor BRENDAN 1.2.840.114 [id number] Univers 00:00:00 00:00:00 Only Unassigned, JASMIN 350.1.13.10 ity of [place] [facility] 4.2.7.2.686 Robe as [phone] [facility] [address] Results Test Description Test Time Test Comments Results Result [facility] e Comments - CT ABD PELVIS 2021-04-18 W/O CONT 20:57:00 [facility] : 1935 Sex: M Name: KRISTEN FERREIRA [facility] : 1935 Age/S: 85 / M [address] [address] [place] Unit #: [id number] Loc: [place] [address] Phys: Undefined Provider Acct: [id number] Dis Date: Status: REG REF PHONE #: [phone] Exam Date: 04/18/20212034 FAX #: Reason: hematoma EXAMS: CPT: [id number] CT ABD PELVIS W/O CONT 13903 Dictation location: H37. CT ABDOMEN AND PELVIS WITHOUT IV CONTRAST [...] 1 Signed Report (CONTINUED) Name: KRISTEN FERREIRA [place] : 1935 Age/S: 85 / M [address] [facility] [place] Unit #: [id number] Loc: [place] [address] Phys: Undefined Provider Acct: [id number] Dis Date: Status: REG REF PHONE #: [phone] Exam Date: 04/18/20212034 FAX #: Reason: hematoma EXAMS: CPT: [id number] CT ABD PELVIS W/O CONT 46008 (Continued) portion of the colon. No obstruction. Atherosclerotic [...] effusions. at 2056 Reported and signed by: Sofai Quarles M.D. CC: Technologist:Maria D Henderson, RT(R)(CT)(MRI) CTDI: DLP: Trnscb Date/Time: 04/18/2021 (2056) [email or web address] Orig Print D/T: S: 04/18/2021 (2099) PAGE 2 Signed Report - CT ABDOMEN W/O 2021-04-16 CONTRAST 11:17:00 [facility] : 1935 Sex: M Name: KRISTEN FERREIRA [facility] : 1935 Age/S: 85 / M [address] [facility] Unit #: [id number] Loc: [place] [address] Phys: Nadia Rdz MD Acct: [id number] Dis Date: Status: REG REF PHONE #: [phone] Exam Date: 04/16/2021 1025 FAX #: Reason: PAIN/ECCHYMOSIS EXAMS: CPT: [id number] CT ABDOMEN W/O CONTRAST 26550 EXAMINATION: - CT ABDOMEN W/O CONTRAST. LOCATION: [...] and/or use of iterative reconstruction technique. FINDINGS: Lower chest: Moderate left and small right [...] within normal limits. Large 11.7 x 7.8 x 6.6 cm right iliopsoas and retroperitoneal hematoma is [...] 1 Signed Report (CONTINUED) Name: KRISTEN [facility] : 1935 Age/S: 85 / M [address] [facility] [place] Unit #: [id number] Loc: [place] [address] Phys: Nadia Rdz MD Acct: [id number] Dis Date: Status: REG REF PHONE #: [phone] Exam Date: 04/16/2021 102 FAX #: Reason: PAIN/ECCHYMOSIS EXAMS: CPT: [id number] CT ABDOMEN W/O CONTRAST 95530 (Continued) 11.7 x 7.8 cm right iliopsoas retroperitoneal [...] D/T: S: 04/16/2021 (1120) PAGE 2 Signed Report POCT GLUCOSE (AUTOMATED) 2021-04-06 16:50:16 Test Item Value Reference Range Interpretation Comme nts POCT GLU (test code = 4036504893) 121 mg/dL 70-110 H Lab Interpretation (test code = 08714-4) [facility]normal [facility]2021-[facility]-06 12:47:00 Test Item Value Reference Range Interpretation Comments POCT GLU (test code = 2733872921) 131 mg/dL 70-110 H Lab Interpretation (test code = Abnormal 27156-5) [facility] [id number] 11:47:19 Test Item Value Reference Range Interpretation Comments NT-proBNP (test code 3640 pg/mL See_Comment H [Autom ated = 1168330176) message] The system which generated this result transmitted reference range : <=450. The reference range was not used to interpret this result as normal/abnormal . BRIGIDO (test code = BRIGIDO) Biotin has been reported to cause a negative bias, interpret results relative to patient's use of biotin. Lab Interpretation Abnormal (test code = 83787-5) [facility] METABOLIC PANEL (NA, K, CL, CO2, GLUCOSE, BUN, CREATININE, CA)2021-04-06 11:38:42 Test Item Value Reference Range Interpretation Comments NA (test code = 139 mmol/L 135-145 0824167212) K (test code = 3.0 mmol/L 3.5-5.0 L 6084139676) CL (test code = 104 mmol/L 98-108 6862470482) CO2 TOTAL (test code = 25 mmol/L 23-31 5059001287) AGAP (test code = 2-16 9980887782) BUN (test code = 23 mg/dL 7-23 5880270546) GLUCOSE (test code = 129 mg/dL 70-110 H 0270537288) CREATININE (test code = 1.18 mg/dL 0.60-1.25 9553122397) CALCIUM (test code = 9.1 mg/dL 8.6-10.6 4860771036) eGFR (test code = mL/min/1.73m2 9673786736) BRIGIDO (test code = BRIGIDO) Association of [...] tests). Lab Interpretation Abnormal (test code = 11334-3) [facility] 11:[facility]:42 Test Item Value Reference Range Interpretation Comments MAGNESIUM (test code = 3116811062) 1.9 mg/dL 1.7-2.4 Lab Interpretation (test code = Normal 37816-5) [facility] WITH [id number] 09:49:36 Test Item Value Reference Range Interpretation Comments WBC (test code = See_Comment H [Automated 6690-2) message] The sy stem which [...] RDW-SD (test code = 45.8 fL 38.5-51.6 83672-1) RDW-CV (test code = 14.3 % 12.1-15.4 788-0) PLT (test code = See_Comment [Automated 777-3) message] The sy stem which generated this result transmitted reference range : 150 - 328 10*3/ ?L. The reference r harvinder was not used to interpret this result as normal/abnormal . MPV (test code = 9.4 fL 9.8-13.0 L 59356-3) NRBC/100 WBC (test See_Comment [Automat ed code = 2215952265) message] The system which generated this result transmitted reference range : 0.0 - 10.0 /100 WBCs. The refer ence range was not u sed to interpret th is result as normal/abnormal . NRBC x10^3 (test code <0.01 See_Comment [Auto mated = 2435747363) message] The s ystem which generated this result transmitted reference range : 10*3/?L. The reference range was not used to interpret this result as normal/abnormal . GRAN MAT (NEUT) % 74.6 % (test code = 770-8) IMM GRAN % (test code 1.20 % = 8574197232) LYMPH % (test code = 7.4 % 736-9) MONO % (test code = 14.7 % 5905-5) EOS % (test code = 1.7 % 713-8) BASO % (test code = 0.4 % 706-2) GRAN MAT x10^3(ANC) 8.73 10*3/uL 1.99-6.95 H (test code = 7612386124) IMM GRAN x10^3 (test 0.14 10*3/uL 0.00-0.06 H code = 2319432572) LYMPH x10^3 (test code 0.86 10*3/uL 1.09-3.23 L = 731-0) MONO x10^3 (test code 1.72 10*3/uL 0.36-1.02 H = 742-7) EOS x10^3 (test code = 0.20 10*3/uL 0.06-0.53 711-2) BASO x10^3 (test code 0.05 10*3/uL 0.01-0.09 = 704-7) Lab Interpretation Abnormal (test code = 27637-3) [facility] GLUCOSE (AUTOMATED)2021-04-06 01:45:02 Test Item Value Reference Range Interpretation Comments POCT GLU (test code = 0638390360) 123 mg/dL 70-110 H Lab Interpretation (test code = Abnormal 07239-8) [facility] GLUCOSE (AUTOMATED)2021-04-05 21:25:46 Test Item Value Reference Range Interpretation Comments POCT GLU (test code = 1216382557) 116 mg/dL 70-110 H Lab Interpretation (test code = Abnormal 83205-1) [facility] GLUCOSE (AUTOMATED)2021-04-05 16:41:44 Test Item Value Reference Range Interpretation Comments POCT GLU (test code = 4819441298) 112 mg/dL 70-110 H Lab Interpretation (test code = Abnormal 71219-2) [id number] 14:08:11 Test Item Value Reference Range Interpretation Comments NT-proBNP (test code 4150 pg/mL See_Comment H [Autom ated = 8542549958) message] The system which generated this result transmitted reference range : <=450. The reference range was not used to interpret this result as normal/abnormal . BRIGIDO (test code = BRIGIDO) Biotin has been reported to cause a negative bias, interpret results relative to patient's use of biotin. Lab Interpretation Abnormal (test code = 47519-0) [facility] GLUCOSE (AUTOMATED)2021-04-05 12:54:57 Test Item Value Reference Range Interpretation Comments POCT GLU (test code = 0475503784) 105 mg/dL 70-110 Lab Interpretation (test code = Normal 58925-6) [facility] GLUCOSE (AUTOMATED)2021-04-05 12:54:51 Test Item Value Reference Range Interpretation Comments POCT GLU (test code = 5163023543) 114 mg/dL 70-110 H Lab Interpretation (test code = Abnormal 71458-9) [facility] GLUCOSE (AUTOMATED)2021-04-05 12:54:51 Test Item Value Reference Range Interpretation Comments POCT GLU (test code = 7210565814) 124 mg/dL 70-110 H Lab Interpretation (test code = Abnormal 78053-1) [facility] WITH [id number] 11:46:12 Test Item Value Reference Range Interpretation Comments WBC (test code = See_Comment H [Automated 0090-2) message] The sy stem which generated this result transmitted reference range : 4.20 - 10.70 10*3/?L. The reference range was not used to interpret this result as normal/abnormal . RBC (test code = See_Comment [Automated 219-8) message] The sy stem which generated this [...] RDW-SD (test code = 46.3 fL 38.5-51.6 82156-6) RDW-CV (test code = 14.3 % 12.1-15.4 788-0) PLT (test code = See_Comment H [Automated 777-3) message] The sy stem which generated this result transmitted reference range : 150 - 328 10*3/ ?L. The reference r harvinder was not used to interpret this result as normal/abnormal . MPV (test code = 9.2 fL 9.8-13.0 L 15852-9) NRBC/100 WBC (test See_Comment [Automat ed code = 8719717331) message] The system which generated this result transmitted reference range : 0.0 - 10.0 /100 WBCs. The refer ence range was not u sed to interpret th is result as normal/abnormal . NRBC x10^3 (test code <0.01 See_Comment [Auto mated = 7197325371) message] The s ystem which generated this result transmitted reference range : 10*3/?L. The reference range was not used to interpret this result as normal/abnormal . GRAN MAT (NEUT) % 75.4 % (test code = 770-8) IMM GRAN % (test code 1.80 % = 1064039671) LYMPH % (test code = 7.1 % 736-9) MONO % (test code = 13.1 % 5905-5) EOS % (test code = 2.4 % 713-8) BASO % (test code = 0.2 % 706-2) GRAN MAT x10^3(ANC) 9.86 10*3/uL 1.99-6.95 H (test code = 2910968901) IMM GRAN x10^3 (test 0.23 10*3/uL 0.00-0.06 H code = 7217874184) LYMPH x10^3 (test code 0.93 10*3/uL 1.09-3.23 L = 731-0) MONO x10^3 (test code 1.72 10*3/uL 0.36-1.02 H = 742-7) EOS x10^3 (test code = 0.31 10*3/uL 0.06-0.53 711-2) BASO x10^3 (test code 0.03 10*3/uL 0.01-0.09 = 704-7) Lab Interpretation Abnormal (test code = 54745-8) [facility] METABOLIC PANEL (NA, K, CL, CO2, GLUCOSE, BUN, CREATININE, CA)2021-04-05 11:34:45 Test Item Value Reference Range Interpretation Comments NA (test code = 139 mmol/L 135-145 9640621744) K (test code = 3.6 mmol/L 3.5-5.0 8202336795) CL (test code = 103 mmol/L 98-108 7239752277) CO2 TOTAL (test code = 26 mmol/L 23-31 4267986014) AGAP (test code = 2-16 5743142288) BUN (test code = 23 mg/dL 7-23 7925645203) GLUCOSE (test code = 122 mg/dL 70-110 H 1406946247) CREATININE (test code = 1.32 mg/dL 0.60-1.25 H 9272438703) CALCIUM (test code = 9.4 mg/dL 8.6-10.6 1410664034) eGFR (test code = mL/min/1.73m2 7903765073) BRIGIDO (test code = BRIGIDO) Association of [...] tests). Lab Interpretation Abnormal (test code = 25416-8) [facility] 11:34:45 Test Item Value Reference Range Interpretation Comments MAGNESIUM (test code = 4705977961) 1.9 mg/dL 1.7-2.4 Lab Interpretation (test code = Normal 44440-5) [facility]21-[facility]-05 01:33:32 Test Item Value Reference Range Interpretation Comments POCT GLU (test code = 0349110145) 124 mg/dL 70-110 H Lab Interpretation (test code = Abnormal 71452-7) [facility] 16:32:38 Test Item Value Reference Range Interpretation Comments Procalcitonin (test 0.13 ng/mL <0.07 H code = 7957951042) BRIGIDO (test code = BRIGIDO) INTERPRETATION OF [...] lung abscess/empyema. For further information please refer to:[email or web address] Lab Interpretation Abnormal (test code = 20284-2) [facility] 12:49:52 Test Item Value Reference Range Interpretation Comments POCT GLU (test code = 0081268966) 144 mg/dL 70-110 H Lab Interpretation (test code = Abnormal 70159-4) [facility] 11:17:31 Test Item Value Reference Range Interpretation Comments MAGNESIUM (test code = 6666307297) 1.9 mg/dL 1.7-2.4 Lab Interpretation (test code = Normal 85733-5) [facility] METABOLIC PANEL (NA, K, CL, CO2, GLUCOSE, BUN, CREATININE, CA)2021-04-04 11:17:11 Test Item Value Reference Range Interpretation Comments NA (test code = 136 mmol/L 135-145 6261127411) K (test code = 3.8 mmol/L 3.5-5.0 2653359078) CL (test code = 104 mmol/L 98-108 2481482712) CO2 TOTAL (test code = 24 mmol/L 23-31 0097880088) AGAP (test code = 2-16 9398236026) BUN (test code = 22 mg/dL 7-23 5091532845) GLUCOSE (test code = 135 mg/dL 70-110 H 7004595008) CREATININE (test code = 1.14 mg/dL 0.60-1.25 2199008204) CALCIUM (test code = 9.0 mg/dL 8.6-10.6 6978791162) eGFR (test code = mL/min/1.73m2 9181705842) BRIGIDO (test code = BRIGIDO) Association of [...] tests). Lab Interpretation Abnormal (test code = 52944-8) [facility] [id number] 11:15:50 Test Item Value Reference Range Interpretation Comments NT-proBNP (test code 4620 pg/mL See_Comment H [Autom ated = 9330820501) message] The system which generated this result transmitted reference range : <=450. The reference range was not used to interpret this result as normal/abnormal . BRIGIDO (test code = BRIGIDO) Biotin has been reported to cause a negative bias, interpret results relative to patient's use of biotin. Lab Interpretation Abnormal (test code = 90966-6) [facility] WITH [id number] 10:38:29 Test Item Value Reference Range Interpretation Comments WBC (test code = See_Comment H [Automated 1690-2) message] The sy stem which generated this [...] RDW-SD (test code = 45.8 fL 38.5-51.6 86195-9) RDW-CV (test code = 14.3 % 12.1-15.4 788-0) PLT (test code = See_Comment [Automated 777-3) message] The sy stem which generated this result transmitted reference range : 150 - 328 10*3/ ?L. The reference r harvinder was not used to interpret this result as normal/abnormal . MPV (test code = 9.3 fL 9.8-13.0 L 49474-5) NRBC/100 WBC (test See_Comment [Automat ed code = 7285511170) message] The system which generated this result transmitted reference range : 0.0 - 10.0 /100 WBCs. The refer ence range was not u sed to interpret th is result as normal/abnormal . NRBC x10^3 (test code <0.01 See_Comment [Auto mated = 9245662908) message] The s ystem which generated this result transmitted reference range : 10*3/?L. The reference range was not used to interpret this result as normal/abnormal . GRAN MAT (NEUT) % 79.9 % (test code = 770-8) IMM GRAN % (test code 0.60 % = 5521770705) LYMPH % (test code = 5.7 % 736-9) MONO % (test code = 11.6 % 5905-5) EOS % (test code = 2.0 % 713-8) BASO % (test code = 0.2 % 706-2) GRAN MAT x10^3(ANC) 9.87 10*3/uL 1.99-6.95 H (test code = 9429904552) IMM GRAN x10^3 (test 0.08 10*3/uL 0.00-0.06 H code = 2285809317) LYMPH x10^3 (test code 0.71 10*3/uL 1.09-3.23 L = 731-0) MONO x10^3 (test code 1.43 10*3/uL 0.36-1.02 H = 742-7) EOS x10^3 (test code = 0.25 10*3/uL 0.06-0.53 711-2) BASO x10^3 (test code 0.03 10*3/uL 0.01-0.09 = 704-7) Lab Interpretation Abnormal (test code = 15913-3) [facility] CULTURE [id number] 08:01:11 Test Item Value Reference Range Interpretation Comments Blood Culture-Aerobic No organisms No growth Previo us (test code = 09165-6) isolated prelim inary verified result was Culture [...] Culture-Anaerobic isolated preliminar y (test code = 92040-2) verifi ed result was Culture In Progress [...] CDT Lab Interpretation Normal (test code = 72062-0) [facility] CULTURE [id number] 08:01:11 Test Item Value Reference Range Interpretation Comments Blood Culture-Aerobic No organisms No growth Previo us (test code = 89725-8) isolated prelim inary verified result was Culture [...] Culture-Anaerobic isolated preliminar y (test code = 09691-1) verifi ed result was Culture In Progress [...] CDT Lab Interpretation Normal (test code = 21030-1) [facility] GLUCOSE (AUTOMATED)2021-04-04 02:08:34 Test Item Value Reference Range Interpretation Comments POCT GLU (test code = 1438805250) 124 mg/dL 70-110 H Lab Interpretation (test code = Abnormal 03787-5) [facility] GLUCOSE (AUTOMATED)2021-04-03 22:37:53 Test Item Value Reference Range Interpretation Comments POCT GLU (test code = 0293296760) 117 mg/dL 70-110 H Lab Interpretation (test code = Abnormal 41272-5) [facility] GLUCOSE (AUTOMATED)2021-04-03 17:11:58 Test Item Value Reference Range Interpretation Comments POCT GLU (test code = 5744722657) 119 mg/dL 70-110 H Lab Interpretation (test code = Abnormal 87710-9) [facility] GLUCOSE (AUTOMATED)2021-04-03 13:39:13 Test Item Value Reference Range Interpretation Comments POCT GLU (test code = 8119149201) 127 mg/dL 70-110 H Lab Interpretation (test code = Abnormal 54467-1) [facility] [id number] 11:26:17 Test Item Value Reference Range Interpretation Comments NT-proBNP (test code 5250 pg/mL See_Comment H [Autom ated = 8221933638) message] The system which generated this result transmitted reference range : <=450. The reference range was not used to interpret this result as normal/abnormal . BRIGIDO (test code = BRIGIDO) Biotin has been reported to cause a negative bias, interpret results relative to patient's use of biotin. Lab Interpretation Abnormal (test code = 23569-7) [facility] METABOLIC PANEL (NA, K, CL, CO2, GLUCOSE, BUN, CREATININE, CA)2021-04-03 11:21:19 Test Item Value Reference Range Interpretation Comments NA (test code = 134 mmol/L 135-145 L 1976631299) K (test code = 3.5 mmol/L 3.5-5.0 5041365199) CL (test code = 102 mmol/L 98-108 1962404337) CO2 TOTAL (test code = 23 mmol/L 23-31 3161197966) AGAP (test code = 2-16 8184193148) BUN (test code = 17 mg/dL 7-23 7480608394) GLUCOSE (test code = 138 mg/dL 70-110 H 1287990591) CREATININE (test code = 0.97 mg/dL 0.60-1.25 3281881366) CALCIUM (test code = 9.1 mg/dL 8.6-10.6 7366771329) eGFR (test code = mL/min/1.73m2 8774667752) BRIGIDO (test code = BRIGIDO) Association of [...] tests). Lab Interpretation Abnormal (test code = 09891-0) [facility] Test Item Value Reference Range Interpretation Comments MAGNESIUM (test code = 2850314467) 1.8 mg/dL 1.7-2.4 Lab Interpretation (test code = Normal 58175-2) [facility] WITH [id number] 11:10:36 Test Item Value Reference Range Interpretation [...] RDW-SD (test code = 46.4 fL 38.5-51.6 04410-5) RDW-CV (test code = 14.2 % 12.1-15.4 788-0) PLT (test code = See_Comment [Automated 777-3) message] The system which generated this result transmit chava reference range : 150 - 328 10*3/ ?L. The reference range was not u sed to interpret th is result as normal/abnormal . MPV (test code = 9.3 fL 9.8-13.0 L 27709-6) NRBC/100 WBC (test See_Comment [Automat ed code = 1265610227) message] The system which generated this result transmit chava reference range : 0.0 - 10.0 /100 WBCs. The reference range was not used to interpret this result as normal/abnormal . NRBC x10^3 (test code <0.01 See_Comment [Auto mated = 3223254609) message] The system which generated this result transmit chava reference range : 10*3/?L. The reference range was not used to interpret this result as normal/abnormal . GRAN MAT (NEUT) % 80.5 % (test code = 770-8) IMM GRAN % (test code 0.70 % = 8233904565) LYMPH % (test code = 6.3 % 736-9) MONO % (test code = 11.0 % 5905-5) EOS % (test code = 1.3 % 713-8) BASO % (test code = 0.2 % 706-2) GRAN MAT x10^3(ANC) 10.96 10*3/uL 1.99-6.95 H (test code = 5027386521) IMM GRAN x10^3 (test 0.10 10*3/uL 0.00-0.06 H code = 4405742687) LYMPH x10^3 (test code 0.85 10*3/uL 1.09-3.23 L = 731-0) MONO x10^3 (test code 1.49 10*3/uL 0.36-1.02 H = 742-7) EOS x10^3 (test code = 0.17 10*3/uL 0.06-0.53 711-2) BASO x10^3 (test code 0.03 10*3/uL 0.01-0.09 = 704-7) Lab Interpretation Abnormal (test code = 64231-8) [facility] [id number] 03:58:26Impression: Stable cardiomegaly. Hazy opacities in the right midlung, new or more pronounced compared to theprevious exam, suggestive of pneumonia. Follow-up is recommended to ensureresolution. Small left pleural effusion. RL: 460 AFC: [id number] Ordering physician: SARAH HAMLIN Indication: Pneumonia Comparison: Chest dated 03/30/2021 Findings: Single AP view of the chest. The cardiopericardial silhouette isstably enlarged. There are hazy opacities in the right midlung. There is asmall left pleural effusion. The visualized bony thorax is intact. [facility], Radiant Results Inft User - 04/02/2021 10:59 PM CDT Ordering physician: SARAH HAMLINIndication: PneumoniaComparison: Chestdated 03/30/2021Findings: Single AP view of the chest. The cardiopericardial silhouette isstably enlarged. There are hazy opacities in the right midlung. There is asmall left pleural effusion. The visualized bony thorax is intact.IMPRESSIONImpression:Stable cardiomegaly.Hazy opacities in the right midlung, new or more pronounced compared to theprevious exam, suggestive of pneumonia. Follow-up is recommended to ensureresolution.Small left pleural effusion.RL: 460AF: [id number] signed by Ninoska Avila MD, PhD at 04/02/2021 10:58 PMUn[facility] ([facility]) 2021-04-03 01:10:23 Test Item Value Reference Range Interpretation Comments POCT GLU (test code = 2626956339) 131 mg/dL 70-110 H Lab Interpretation (test code = Abnormal 27648-5) [facility] (A1C)2021-04-02 18:08:22 Test Item Value Reference Range Interpretation Comments HGB A1C (test code = 6.9 % 4.0-5.7 H 4548-4) BRIGIDO (test code = BRIGIDO) Reference RangesNormal: <5.7%Prediabetes: 5.7 - 6.4%Diabetes: > 6.5% Lab Interpretation (test Abnormal code = 43927-2) [facility]OL[facility] (20374)2021-04-02 11:15:24 Test Item Value Reference Range Interpretation Comments NA (test code = 136 mmol/L 135-145 2829822560) K (test code = 3.9 mmol/L 3.5-5.0 6597140859) CL (test code = 106 mmol/L 98-108 0277270307) CO2 TOTAL (test code = 21 mmol/L 23-31 L 8117186711) AGAP (test code = 2-16 0398533001) BUN (test code = 15 mg/dL 7-23 3358577344) GLUCOSE (test code = 188 mg/dL 70-110 H 3378897650) CREATININE (test code = 1.13 mg/dL 0.60-1.25 9152309211) TOTAL BILI (test code = 0.5 mg/dL 0.1-1.9 2766246523) CALCIUM (test code = 8.8 mg/dL 8.6-10.6 1552821791) T PROTEIN (test code = 5.5 g/dL 6.3-8.2 L 7974134301) ALBUMIN (test code = 2.8 g/dL 3.5-5.0 L 9546466385) ALK PHOS (test code = 78 U/L 34-122 4821676068) ALTv (test code = 7 U/L 5-50 1742-6) AST(SGOT) (test code = 16 U/L 13-40 6999326012) eGFR (test code = mL/min/1.73m2 7599749045) BRIGIDO (test code = BRIGIDO) Association of [...] tests). Lab Interpretation Abnormal (test code = 31007-8) [facility] WITH [id number] 10:49:42 Test Item Value Reference Range Interpretation Comments WBC (test code = See_Comment H [Automated 6282-2) message] The system which generated this result [...] RDW-SD (test code = 47.3 fL 38.5-51.6 06070-1) RDW-CV (test code = 14.5 % 12.1-15.4 788-0) PLT (test code = See_Comment [Automated 777-3) message] The system which generated this result transmit chava reference range : 150 - 328 10*3/ ?L. The reference range was not u sed to interpret th is result as normal/abnormal . MPV (test code = 9.7 fL 9.8-13.0 L 78209-0) NRBC/100 WBC (test See_Comment [Automat ed code = 9776280631) message] The system which generated this result transmit chava reference range : 0.0 - 10.0 /100 WBCs. The reference range was not used to interpret this result as normal/abnormal . NRBC x10^3 (test code <0.01 See_Comment [Auto mated = 9790923731) message] The system which generated this result transmit chava reference range : 10*3/?L. The reference range was not used to interpret this result as normal/abnormal . GRAN MAT (NEUT) % 85.3 % (test code = 770-8) IMM GRAN % (test code 0.50 % = 5578116650) LYMPH % (test code = 4.5 % 736-9) MONO % (test code = 8.6 % 5905-5) EOS % (test code = 0.9 % 713-8) BASO % (test code = 0.2 % 706-2) GRAN MAT x10^3(ANC) 13.80 10*3/uL 1.99-6.95 H (test code = 3428813889) IMM GRAN x10^3 (test 0.08 10*3/uL 0.00-0.06 H code = 1235252405) LYMPH x10^3 (test code 0.72 10*3/uL 1.09-3.23 L = 731-0) MONO x10^3 (test code 1.39 10*3/uL 0.36-1.02 H = 742-7) EOS x10^3 (test code = 0.14 10*3/uL 0.06-0.53 711-2) BASO x10^3 (test code 0.04 10*3/uL 0.01-0.09 = 704-7) Lab Interpretation Abnormal (test code = 57458-5) [facility] [id number] 18:53:38 Test Item Value Reference Range Interpretation Comments NT-proBNP (test code 4360 pg/mL See_Comment H [Autom ated = 4544777870) message] The system which generated this result transmitted reference range : <=450. The reference range was not used to interpret this result as normal/abnormal . BRIGIDO (test code = BRIGIDO) Biotin has been reported to cause a negative bias, interpret results relative to patient's use of biotin. Lab Interpretation Abnormal (test code = 87926-2) [facility] MOD[facility] BARIUM [id number] 17:23:46 1. ?Laryngeal penetration without aspiration. 2. ?Please see separate Speech Pathology report for recommendations andadditional findings.EXAM: [place] MODIFIED BARIUM SWALLOW HISTORY: 85 years old Male with concern for aspiration TECHNIQUE: A video swallowing exam with fluoroscopy was performed inconjunction with Speech Pathology who administered multiple consistenciesof barium. Fluoroscopy was performedunder the supervision of aradiologist. COMPARISON: Modified barium swallow, 06/26/2020 FINDINGS:Statements: None. Pharynx: Laryngeal penetration. No aspiration Other: None. [facility], Radiant Results Inft User - 04/01/2021 12:24 PM CDT EXAM: FL MODIF IED BARIUM SWALLOWHISTORY: 85 years old Male with concern for aspiration TECHNIQUE: A video swallowing exam with fluoroscopy was performed inconjunction with Speech Pathology who administered multiple consistenciesof barium. Fluoroscopy was performed under the supervision of aradiologist. COMPARISON: M odified barium swallow, 06/26/2020FINDINGS:Statements: None.Pharynx: Laryngeal penetration. No aspirationOther: None.IMPRESSION1. Laryngeal penetration without aspiration.2. Please see separate Speech Pathology report for recommendations andadditional findings.[facility] WITH [id number] 12:34:21 Test Item Value Reference Range Interpretation Comments WBC (test code = See_Comment H [Automated 2757-2) message] The system which generated this result transmit chava reference range : 4.20 - 10.70 10*3/?L. The reference range was not used to interpret this result as normal/abnormal . RBC (test code = See_Comment [Automated 507-8) message] The system which generated this result [...] RDW-SD (test code = 47.9 fL 38.5-51.6 24543-6) RDW-CV (test code = 14.6 % 12.1-15.4 788-0) PLT (test code = See_Comment [Automated 777-3) message] The system which generated this result transmit chava reference range : 150 - 328 10*3/ ?L. The reference range was not u sed to interpret th is result as normal/abnormal . MPV (test code = 9.9 fL 9.8-13.0 35379-8) NRBC/100 WBC (test See_Comment [Automat ed code = 9974214711) message] The system which generated this result transmit chava reference range : 0.0 - 10.0 /100 WBCs. The reference range was not used to interpret this result as normal/abnormal . NRBC x10^3 (test code <0.01 See_Comment [Auto mated = 2394473292) message] The system which generated this result transmit chava reference range : 10*3/?L. The reference range was not used to interpret this result as normal/abnormal . GRAN MAT (NEUT) % 89.5 % (test code = 770-8) IMM GRAN % (test code 0.60 % = 2577255313) LYMPH % (test code = 3.6 % 736-9) MONO % (test code = 5.8 % 5905-5) EOS % (test code = 0.4 % 713-8) BASO % (test code = 0.1 % 706-2) GRAN MAT x10^3(ANC) 15.27 10*3/uL 1.99-6.95 H (test code = 6678442260) IMM GRAN x10^3 (test 0.10 10*3/uL 0.00-0.06 H code = 4797883330) LYMPH x10^3 (test code 0.62 10*3/uL 1.09-3.23 L = 731-0) MONO x10^3 (test code 0.99 10*3/uL 0.36-1.02 = 742-7) EOS x10^3 (test code = 0.06 10*3/uL 0.06-0.53 711-2) BASO x10^3 (test code <0.03 0.01-0.09 = 704-7) BANDS (test code = Increased A 1752990788) Lab Interpretation Abnormal (test code = 90515-9) [facility]. METABOLIC PANEL (27000)2021-04-01 10:30:37 Test Item Value Reference Range Interpretation Comments NA (test code = 136 mmol/L 135-145 6792102030) K (test code = 4.8 mmol/L 3.5-5.0 8146889600) CL (test code = 110 mmol/L 98-108 H 3512416226) CO2 TOTAL (test code = 17 mmol/L 23-31 L 4103394955) AGAP (test code = 2-16 5696564793) BUN (test code = 18 mg/dL 7-23 8373922194) GLUCOSE (test code = 184 mg/dL 70-110 H 9505312562) CREATININE (test code = 1.10 mg/dL 0.60-1.25 0301829305) TOTAL BILI (test code = 0.5 mg/dL 0.1-1.3 0486923474) CALCIUM (test code = 8.9 mg/dL 8.6-10.6 0311440280) T PROTEIN (test code = 5.6 g/dL 6.3-8.2 L 6488339227) ALBUMIN (test code = 2.8 g/dL 3.5-5.0 L 3716201547) ALK PHOS (test code = 77 U/L 34-122 4135310178) ALTv (test code = 7 U/L 5-50 1742-6) AST(SGOT) (test code = 20 U/L 13-40 1151694828) eGFR (test code = mL/min/1.73m2 8077213563) BRIGIDO (test code = BRIGIDO) Association of [...] tests). Lab Interpretation Abnormal (test code = 72240-2) [facility] GALL [id number] 19:45:57 Hydropic gallbladder without evidence of cholelithiasis. No sonographicevidence of acute cholecystitis. I, Airam Bates MD., have reviewed this study and agree with the abovereport.EXAM: US GALL BLADDER HISTORY: 85 years-old Male with RUQ US for possible acute cholecystitis . TECHNIQUE: Limited abdominal ultrasound performed focused on thegallbladder. Main portal vein was evaluated with color Doppler imaging.Gang Head Saw Operator images were obtained for the record. COMPARISON: None FINDINGS: LIVER: Normal parenchymal echogenicity and echotexture. No focal lesionidentified. Hepatopetal flow in the mainportal vein. The main portal veinmeasures 1.0 cm in transverse diameter at the jeremiah hepatis. GALLBLADDER:No cholelithiasis. Hydropic gallbladder measuring 9.7 x 5.3 x 5.5 cm.Normal gallbladder wall thickness, 3.0 mm.Negative sonographic Ríos's sign. BILE DUCTS:No intra- or extrahepatic biliary dilatation.Common Duct diameter: 4.0 mm. PANCREAS: Limited visualization due to shadowing from bowel gas.OTHER: None. [facility], Radiant Results Inft User - 03/31/2021 2:47 PM CDT EXAM: US GALL BLADDERHISTORY: 85 years-old Male with RUQ US for possible acute cholecystitis .TECHNIQUE: Limited abdominal ultrasound performed focused on thegallbladder. Main portal vein was evaluated with color Doppler imaging.Gang Head Saw Operator images were obtained for the r ecord.COMPARISON: NoneFINDINGS: LIVER: Normal parenchymal echogenicity and echotexture. No focal lesionidentified. Hepatopetal flow in the main portal vein. The main portal veinmeasures 1.0 cm in transverse diameter at the jeremiah hepatis.GALLBLADDER:No cholelithiasis. Hydropic gallbladder measuring 9.7x 5.3 x 5.5 cm.Normal gallbladder wall thickness, 3.0 mm.Negative sonographic Ríos's sign.BILE DUCTS:No intra- or extrahepatic biliary dilatation.Common Duct diameter: 4.0 mm.PANCREAS: Limited visualization due to shadowing from bowel gas. OTHER: None. IMPRESSIONHydropic gallbladder without evidenceof cholelithiasis. No sonographicevidence of acute cholecystitis.Airam Goddard MD., have reviewed this study and agree with the abovereport.[facility] 1 [id number] 18:23:09 Left lower lung retrocardiac airspace opacity, [...] joints. Surgical clips project over theupper abdomen. [facility], Radiant Results Inft User - 03/31/2021 1:24 [...] this study and agree with the abovereport.[facility] ONLY COVID [id number] 17:28:16COVID DMT InterpretationInterpretation/Recommendations: Molecular NAAT Tests for [...] IgM and/or IgG Antibodies to the SARS-CoV-2 Virus: If the patient develops COVID-19 illness in the future, testing for IgM and IgG antibodies approximately 3 weeks [...] COVID-19 testing the patient has had at [facility], including molecular NAAT testing (more commonly known as PCR testing and Rapid ID Now testing) and antibody testing. It does not take into account any testing that a patient has had outside of the [facility] medical record. [facility] LABORATORY SERVICESCOVID ResultsSA RS-CoV-2 NAAT (no units) ? ? Date ? Value ? 12/07/2020 ? Not Detected ? ? ? 10/25/2020 ? Not Detected ? ? ? 07/12/2020 ? Not Detected ?? ? 04/19/2020 ? Not Detected ? SARS-CoV-2 Rapid ID NOW (no units) ? ? Date ? Value ? 03/30/2021 ? Not Detected ? ? ? 12/07/2020 ? Not Detected ? ? ? 07/09/2020 ? Not Detected ? [facility]UnThe [facility] URINE [id number] 12:12:09 Test Item Value Reference Range Interpretation Comments URINE CULTURE (test No aerobic growth (< code = 630-4) 1000 CFU/mL) [facility] (NA, K, CL, CO2, GLUCOSE, BUN, CREATININE, CA)2021-03-31 10:17:05 Test Item Value Reference Range Interpretation Comments NA (test code = 137 mmol/L 135-145 4790031471) K (test code = 4.7 mmol/L 3.5-5.0 8477482018) CL (test code = 111 mmol/L 98-108 H 5980753594) CO2 TOTAL (test code = 18 mmol/L 23-31 L 8831503123) AGAP (test code = 2-16 9274430668) BUN (test code = 22 mg/dL 7-23 8823642411) GLUCOSE (test code = 150 mg/dL 70-110 H 5350890114) CREATININE (test code = 1.38 mg/dL 0.60-1.25 H 2758606548) CALCIUM (test code = 9.0 mg/dL 8.6-10.6 8331569264) eGFR (test code = mL/min/1.73m2 0854756386) BRIGIDO (test code = BRIGIDO) Association of [...] tests). Lab Interpretation Abnormal (test code = 58256-6) [facility] with [id number] 09:33:40 Test Item Value Reference Range Interpretation Comments WBC (test code = See_Comment H [Automated 3390-2) message] The system which generated this result [...] RDW-SD (test code = 48.3 fL 38.5-51.6 56524-4) RDW-CV (test code = 14.4 % 12.1-15.4 788-0) PLT (test code = See_Comment [Automated 777-3) message] The system which generated this result transmit chava reference range : 150 - 328 10*3/ ?L. The reference range was not u sed to interpret th is result as normal/abnormal . MPV (test code = 10.2 fL 9.8-13.0 56790-1) NRBC/100 WBC (test See_Comment [Automat ed code = 1915834680) message] The system which generated this result transmit chava reference range : 0.0 - 10.0 /100 WBCs. The reference range was not used to interpret this result as normal/abnormal . NRBC x10^3 (test code <0.01 See_Comment [Auto mated = 8475999381) message] The system which generated this result transmit chava reference range : 10*3/?L. The reference range was not used to interpret this result as normal/abnormal . GRAN MAT (NEUT) % 88.0 % (test code = 770-8) IMM GRAN % (test code 1.20 % = 2887509844) LYMPH % (test code = 4.4 % 736-9) MONO % (test code = 6.1 % 5905-5) EOS % (test code = 0.1 % 713-8) BASO % (test code = 0.2 % 706-2) GRAN MAT x10^3(ANC) 14.54 10*3/uL 1.99-6.95 H (test code = 0691432101) IMM GRAN x10^3 (test 0.19 10*3/uL 0.00-0.06 H code = 0174638839) LYMPH x10^3 (test code 0.73 10*3/uL 1.09-3.23 L = 731-0) MONO x10^3 (test code 1.00 10*3/uL 0.36-1.02 = 742-7) EOS x10^3 (test code = <0.03 0.06-0.53 L 711-2) BASO x10^3 (test code 0.04 10*3/uL 0.01-0.09 = 704-7) Lab Interpretation Abnormal (test code = 56001-0) [facility] Arterial Blood Gas.2021-03-31 01:08:49 Test Item Value Reference Range Interpretation Comments PH (test code = 2) 7.35-7.45 PCO2 (test code = See_Comment L [Automate d message] 6867949883) The system Pikum generated this result transmitted ref erence range: 35 - 45 mmHg. The reference r harvinder was not used to interpret this result as normal/abnor mal. PO2 (test code = See_Comment L [Automated message] 7535687689) The system Pikum generated this result transmitted ref erence range: 80 - 100 mmHg. The reference r harvinder was not used to interpret this result as normal/abnor mal. HCO3 (test code = See_Comment L [Automate d message] 5985610635) The system Pikum generated this result transmitted ref erence range: 22 - 26 mEq/L. The reference r harvinder was not used to interpret this result as normal/abnor mal. BE (test code = See_Comment L [Automated message] 3237535317) The system Pikum generated this result transmitted ref erence range: -3.0 - 3 .0 mEq/L. The refe rence range was not u sed to interpret this result as normal/abnor mal. Lab Interpretation (test Abnormal code = 63056-5) [facility] 1 [id number] 00:44:46 Slight increase in left basilar airspace disease compared to radiographfrom earlier on the same daymay be from atelectasis or early milddeveloping pneumonia. RL: 3726AFC: [id number] END OF REPORT ORDERING PHYSICIAN: HARIS LOPES HISTORY: ?Shortness of breath. TECHNIQUE: ?Frontal view of the chest. COMPARISON: ?03/30/2021 and 2:05 AM FINDINGS: ? The cardiomediastinal contours are unremarkable. Vascular calcifications.Mild increase in left basilar airspace disease. No pleural effusion orpneumothorax. The osseous structures are unremarkable. [facility], Radiant Results Inft User - 03/30/2021 7:45 PM CDTFormatting of this note might be different from theoriginal.ORDERING PHYSICIAN: HARIS NOLANHISTORY: Shortness of breath.TECHNIQUE: Frontal view of thechest.COMPARISON: 03/30/2021 and 2:05 AMFINDINGS: The cardiomediastinal contours are unremarkable. Vascular calcifications.Mild increase in left basilar airspace disease. No pleural effusion orpneumothorax. The osseous structures are unremarkable. IMPRESSIONSlight increase in left basilar airspace disease compared to radiographfrom earlier on the same day may be from atelectasis or early milddevelopingpneumonia. RL: 3726AFC: [id number] OF REPORT UnThe [facility] Medical CenterCT ABDOMEN PELVIS WO [id number] 15:20:14 1. ?Left lower lobe dependent airspace [...] Numerousleft renal hypoattenuating and hyperattenuating cystic structures.Prostatomegaly. Preliminary Report Dictated by Resident: Avis Lynch ?MD. Sandra, have reviewed this study and agree with [...] airspace opacities, likelyrepresent aspiration or developing infection. Hypoattenuatingcontentwithin the left ventricular related to the myocardium, could be seen withlow hematocrit status. LIVER: No focal hepatic lesions within the limits of this unenhanced CT.Normal liver contour. GALLBLADDER AND BILIARY TREE: Hydropic gallbladder with subtlepericholecystic fat stranding. No biliary ductal dilation. No radiopaquecholelithiasis. No gallbladder wall thickening. SPLEEN: No splenomegaly.Small calcified splenic granuloma. PANCREAS: No ductal dilation or masses within the limits of this unenhancedCT. Fatty replacement of pancreatic parenchyma is noted. ADRENAL GLANDS: No adrenal nodules. 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 No left hydronephrosis orstones. Numerous left kenna l intraparenchymal and exophytic hypoattenuatingcystic structures measuring up to 4.6 cm some of which simple fluid densityand some demonstrated greater than simple fluid density. PERITONEUM AND RETROPERITONEUM: No free air or fluid. LYMPH NODES: No lymphadenopathy. GI TRACT: Extensive descending and sigmoid colonic diverticulosis [...] bony lesions.Eventration of the right lateral abdominal wall with herniation of smalland large bowel loops. [facility], Radiant Results Inft User - 03/30/2021 10:21 AM CDT EXAM: CT ABDOMEN/PELVIS WITHOUT CONTRASTHISTORY: 85 years-old [...] lack of IV contrast material and streak artifact.LOWER THORAX: Left lower lobe dependent airspace opacities, [...] unenhancedCT. Fatty replacement of pancreatic parenchyma is noted.ADRENALGLANDS: No adrenal nodules.KIDNEYS: Changes of right nephrectomy [...] cm in transversedimension at the level of thefemoral heads with internal concretions.VESSELS: Unremarkable, within the limits of this unenhanced CT.BONES AND SOFT TISSUES: No suspicious lytic or sclerotic bony lesions.Eventration of the right lateral abdominal wall with herniation of smalland large [...] this study and agree with theabove report.[facility]CT HEAD WO CONTRAST 2021-03-30 12:33:04 No acute [...] globalcerebral volume loss. No hydrocephalus. The sethi-white matterdifferentiation is preserved. The calvarium and skull base [...] such as hemorrhage, edema, mass, mass-effect,midline shift, orextra axial fluid collection is appreciated.The ventricles and sulci are prominent suggestive of mild degree of globalcerebral volume loss. No hydrocephalus.The sethi-white matter differentiation is pres erved.The calvarium and skull base are intact. The visualized paranasal sinusesand mastoid air cellsare clear.IMPRESSIONNo acute intracranial abnormality.Preliminary Report Dictated by Resident: Cailin Serrano MD., have reviewed this study and agree with the abovereport.[facility]evilleTRCONWAY MEDICAL CENTERNIN [id number] 08:01:01 Test Item Value Reference Range Interpretation Comments TROPONIN I (test 0.004 ng/mL See_Comment [Automated code = 7153068757) message] The system which generated this result [...] ? Lab Interpretation Normal (test code = 78198-6) [facility]evilleCOM. METABOLIC PANEL (68128)2021-03-30 07:49:23 Test Item Value Reference Range Interpretation Comments NA (test code = 132 mmol/L 135-145 L 8056605924) K (test code = 4.2 mmol/L 3.5-5.0 2859115165) CL (test code = 105 mmol/L 98-108 2983417022) CO2 TOTAL (test code = 19 mmol/L 23-31 L 2035681900) AGAP (test code = 2-16 9272851344) BUN (test code = 37 mg/dL 7-23 H 3610507189) GLUCOSE (test code = 139 mg/dL 70-110 H 0994158467) CREATININE (test code = 2.32 mg/dL 0.60-1.25 H 9408516475) TOTAL BILI (test code = 0.7 mg/dL 0.1-1.0 2993132591) CALCIUM (test code = 9.1 mg/dL 8.6-10.6 5582408029) T PROTEIN (test code = 6.4 g/dL 6.3-8.2 9327614402) ALBUMIN (test code = 3.5 g/dL 3.5-5.0 9172578642) ALK PHOS (test code = 92 U/L 34-122 3468660459) ALTv (test code = 8 U/L 5-50 1742-6) AST(SGOT) (test code = 17 U/L 13-40 4226201292) eGFR (test code = mL/min/1.73m2 8084759729) BRIGIDO (test code = BRIGIDO) Association of [...] tests). Lab Interpretation Abnormal (test code = 80812-8) [facility]evilleLIPASE2021-06-06 07:49:03 Test Item Value Reference Range Interpretation Comments LIPASE (test code = 4671887634) 43 U/L 0-220 Lab Interpretation (test code = Normal 91466-0) [facility]evilleCOVID-19 (ID NOW RAPID TESTING)2021-03-30 07:48:03 Test Item Value Reference Range Interpretation Comments SARS-CoV-2 Rapid ID NOW Not Detected Not Detected (test code = 93574-8) BRIGIDO (test code = BRIGIDO) ID NOW COVID-19 Assay is an isothermal nucleic acid amplification test intended for the qualitative detection of nucleic acid from SARS-CoV-2 viral RNA in nasopharyngeal (IN FLIGHT REFUELING OPERATOR) specimens. It is used under Emergency Use [...] indicated. Lab Interpretation Normal (test code = 58424-6) [facility]evilleURINALYSIS2021-06-06 07:27:45 Test Item Value Reference Range Interpretation Comments APPEARANCE (test code = Clear Clear 4186920984) COLOR (test code = Yellow Yellow 5539136845) PH (test code = 4.8-8.0 0355454577) SP GRAVITY (test code = 1.003-1.030 8773612746) GLU U QUAL (test code = Normal Normal 6506546069) BLOOD (test code = 3+ Negative A 5861186376) KETONES (test code = 5 mg/dL Negative A 1968776884) PROTEIN (test code = 30 mg/dL Negative A 2887-8) UROBILIN (test code = Normal Normal 1833585693) BILIRUBIN (test code = Negative Negative 1918722127) NITRITE (test code = Negative Negative 4934409598) LEUK CARLOS A (test code = Negative Negative 3557331002) RBC/HPF (test code = >182 See_Comment H [Autom ated message] 1656793822) The system nvite generated this result transmitted ref erence range: 0 - 3 HP F. The reference range was not used to int erpret this result as normal/abnormal . WBC/HPF (test code = See_Comment [Autom ated message] 6351419189) The system nvite generated this result transmitted ref erence range: 0 - 5 HP F. The reference range was not used to int erpret this result as normal/abnormal . BACTERIA (test code = Few Negative A 7639111219) HYAL CAST (test code = See_Comment [Aut omated message] 6424914843) The system nvite generated this result transmitted ref erence range: <=2 LPF. The reference range was not used to int erpret this result as normal/abnormal . Lab Interpretation (test Abnormal code = 31565-7) [facility] WITH [id number] 07:14:23 Test Item Value Reference Range Interpretation [...] RDW-SD (test code = 48.4 fL 38.5-51.6 92339-2) RDW-CV (test code = 14.3 % 12.1-15.4 788-0) PLT (test code = See_Comment [Automated 777-3) message] The system which generated this result transmit chava reference range : 150 - 328 10*3/ ?L. The reference range was not u sed to interpret th is result as normal/abnormal . MPV (test code = 10.1 fL 9.8-13.0 25547-2) NRBC/100 WBC (test See_Comment [Automat ed code = 7790818883) message] The system which generated this result transmit chava reference range : 0.0 - 10.0 /100 WBCs. The reference range was not used to interpret this result as normal/abnormal . NRBC x10^3 (test code <0.01 See_Comment [Auto mated = 4606949365) message] The system which generated this result transmit chava reference range : 10*3/?L. The reference range was not used to interpret this result as normal/abnormal . GRAN MAT (NEUT) % 85.7 % (test code = 770-8) IMM GRAN % (test code 1.40 % = 4717643319) LYMPH % (test code = 6.0 % 736-9) MONO % (test code = 5.8 % 5905-5) EOS % (test code = 0.9 % 713-8) BASO % (test code = 0.2 % 706-2) GRAN MAT x10^3(ANC) 14.10 10*3/uL 1.99-6.95 H (test code = 2930963761) IMM GRAN x10^3 (test 0.23 10*3/uL 0.00-0.06 H code = 2352801264) LYMPH x10^3 (test code 0.98 10*3/uL 1.09-3.23 L = 731-0) MONO x10^3 (test code 0.95 10*3/uL 0.36-1.02 = 742-7) EOS x10^3 (test code = 0.14 10*3/uL 0.06-0.53 711-2) BASO x10^3 (test code 0.03 10*3/uL 0.01-0.09 = 704-7) Lab Interpretation Abnormal (test code = 29724-1) [facility]evilleLactic Acid Whole [id number] 07:01:50 Test Item Value Reference Range Interpretation Comments LACTIC ACID (test code = 1.85 mmol/L 0.50-2.20 0694456479) Lab Interpretation (test code = Normal 97296-6) [facility]evillePROSTATE,[id number] 10:44:00 Test Item Value Reference Range Interpretation Comments PROSTATE,TUR (test code = PROSTTUR) RUN DATE: 03/26/21 [facility] PAGE 1 RUN TIME: 1044 Specimen Inquiry RUN USER: INTERFACE PATIENT: KRISTEN FERREIRA [place] [facility] [place] #: [id number] AGE/SX: 85/M ROOM: [facility] RE03/21/21REG DR: Ness Veronica MD : 35 BED: A DIS: 03/22/21 STATUS: DIS Jaqui TLOC: SPEC #: [id number]:[id number] RECD: 03/21/21 STATUS: GIUSEPPE RICE #: [id number] JUAN C: 03/21/[address]: Ness Veronica MD ENTERED: 03/21/21 SP TYPE: PROSTTUR OTHR DR: No Primary or Family PhysicianORDERED: SURG PATH LVL 4 CODES: G86914 - PROSTATE, NOS S80187 M57238 - PROSTATE, NOS NODULAR HYPERPL H18897 [id number] - PROSTATE, NOS EXCISION, NOS COPIES TO: No Primary [place] [address] [facility] [address] [place] [address] PROCEDURES: SURG PATH LVL 4 (03/21/21) TISSUES: A. PROSTATE, NOS - PROSTATE CHIPS CPT CODES CPT CODE(S): 16773 , , , , , , FINAL [...] evidence of malignancy. /louie Signed SIGNATURE ON FILE Antonia Cat 03/26/21 1044 END OF REPORT PROTHROMBIN [id number] 10:45:00 Test Item Value Reference Range Interpretation Comments PROTHROMBIN TIME PATIENT 10.7 9.5-12.7 N (test code = PTP) INTERNATIONAL NORMAL RATIO 1.0 0.86-1.14 N T he INR is to be used (test code = INR) only for m onitoring oral anticoagulantth erapy. INDICATION INR VALUE ------- ------- -----1. Prophylaxis, de ep venous thrombos is, including high risk surgery. 2.0 - 3.0 2. Prophylaxis, de ep venous thrombos is, hip surgery, treatm ent for deep venous thr ombosis or pulmonary prevention of s ystemic embolism in pat ients with valvular h eart disease, atrial fibrillation, t issue heart valve, or acute myocardial infa rction. 2.0 - 3.0 3. Mechanical pros thesis heart valves, recurrent syste candi embolism. 3.0 - 4.5 PTT [id number] 10:45:00 Test Item Value Reference Range Interpretation Comments PTT ACTIVATED (test code = APTT) 38.1 SECONDS 25.1-36.5 H CBC W/AUTO [id number] 10:35:00 Test Item Value Reference Range Interpretation [...] 0.0-0.1 N NRBC#) COVID 19 Asymptomatic IH [id number] 09:50:00 Test Item Value Reference Range Interpretation Comments COVID 19 NEGATIVE Negative "Negative resul ts from Asymptomatic IH AG patients with symptom (test code = onset beyondfiv e days, COVNONPUIAG) should be treat ed as presumptive, andconfirmation with a molecular assay [...] in the sample." - XR CHEST 2 [id number] 09:35:00 [facility] : 1935 Sex: M Patient Name: KRISTEN FERREIRA Unit No: [id number] EXAMS: CPT CODE: [id number] XR CHEST 2 V 97403 EXAMINATION: Frontal and lateral chest radiographs INDICATION: Cough COMPARISON: None LOCATION: S17 FINDINGS: Minimal left basilar atelectasis with otherwise clear lungs. No pleural effusion or pneumothorax. Enlarged cardiac silhouette. IMPRESSION: Minimal left basilar atelectasis. at 0935 Reported and signed by: Bowen Salnias MD CC: Brad Gan MD Technologist: Yuli Spencer RT(R) Transcrpt Date/Tm/Trnsp: 03/21/2021 (0935) DinoraR.PE1 Orig Print D/T: S: 03/21/2021 (0939) [facility] NAME: KRISTEN FERREIRA [address] PHYS: [place] [address] : 1935 AGE: 85 SEX: M LOC: [facility] PHONE #: [phone] EXAM DATE: 03/21/2021 STATUS: REG SDC FAX #: [phone] RADIOLOGY NO: PAGE 1 Signed ReportCOMPREHENSIVE METABOLIC PANEL 2021-03-21 08:42:00 Test Item Value Reference Range Interpretation [...] newinformation regarding the potential i nterference ofEltrombopag ( a bone marrow stimulan t used to treatthrombocyt onmenia and aplastic anemia ) with specific assays on the Vitros 5600 of which Total Protein is one of thoseassays per formed in our lab.Interfe rence testing perform ed at [facility] determined that Eltrombopag does interfere with Vitros Total Protein asfollowsEltrom bopag Interference fo r Vitros Product Total Protein:======= Eltrombopag Max Observed Av g. BiasConcentrati on Concentration Concentration== ==== 2.5 mg/dl 6.0 g/dl +0.41 +0.34 3.5 mg/dl 6.0 g /dl +0.50 +0.45 5 mg/dl 6 .0 g/dl +0.73 +0.65 2.5 mg/dl 8.0 g/dl +0.44 +0.4 1 3.5 mg/dl 8.0 g/dl +0.55 +0.52 5 mg/dl 8.0 g/dl +0.86 +0.77 ALBUMIN (test 3.7 G/DL 3.5-5.0 N code = ALB) CALCIUM (test 8.8 MG/DL 8.4-10.2 N code = CA) BILIRUBIN TOTAL 0.4 MG/DL 0.2-1.3 N Eltrombopag Interference (test code = for Vitros Prod uct TBil, BILT) BuBc: Assa y Eltrombopag Annie lyte/ Max Observed Avg. B ias Concentration C oncentration Concentration== ====TBil 7mg/dl TBil/ 1. 2mg/dl +0.23mg.dl +0.2 0mg/dlBuBc 3.5mg/dl Bu/0.8 mg/dl +0.25mg/dl +0.2 4mg/dlBuBc 7 mg/dl Bu/14.2mg /dl +0.38mg/dl +0.2 5mg/dlBuBc 5mg/dl Bc/0mg/d l +0.25mg/dl +0.15mg/dlBuBc 3.5mg/dl Bc/2.8mg/dl +0. 25mg/dl +0.23mg/dl SGOT/AST (test 22 UNITS/L 17-59 N code = AST) SGPT/ALT (test 13 UNITS/L <50 code = ALT) ALKALINE 83 UNITS/L 38-126 N PHOSPHATASE (test code = ALKP) POC VENOUS BLOOD [id number] 08:12:00 Test Item Value Reference Range Interpretation Comments POC VENOUS BLOOD GAS PH (test 7.325 7.35-7.45 L code = POCPHV) POC VENOUS BLOOD GAS PCO2 45.8 mmHg 35.0-45.0 H (test code = BDHTUZ1S) POC VENOUS BLOOD GAS PO2 25.1 mmHG 0-40 N (test code = LXFRF3C) POC HCO3 VENOUS (test code = 23.9 MMOL/L 20-26 N RLZRMS2R) POC BASE EXCESS VENOUS (test -2.4 MMOL/L -3.0-3.0 N code = POCBEV) POC O2 SATURATION VENOUS 40.6 % 72-77 L (test code = PQGA3XZ) POC SAMPLE SOURCE (test code Venous Descript Specimen = POCSAMPLE) LACTIC ACID POC (test code = 1.25 mmol/L 0.7-2.0 N LACTP) XR CHEST 2 [id number] 21:25:03HISTORY: Upper respiratory tract infection. TECHNIQUE: 2 [...] noted.CONCLUSIONS: No signs of acute cardiopulmonary disease. [facility]eville[facility]OVI 19 Asymptomatic IH [id number] 14:32:00 Test Item Value Reference Range Interpretation Comments COVID 19 NEGATIVE Negative "Negative resul ts from Asymptomatic IH AG patients with symptom (test code = onset beyondfiv e days, COVNONPUIAG) should be treat ed as presumptive, andconfirmation with a molecular assay [...] virus (antigen) in the sample." BASIC METABOLIC [id number] 14:06:00 Test Item Value Reference Range Interpretation [...] 9.8 MG/DL 8.4-10.2 N CA) CBC W/AUTO [id number] 13:40:00 Test Item Value Reference Range Interpretation [...] = 0.00 K/mm3 0.0-0.1 N NRBC#) DIFFERENTIAL [id number] 13:40:00 Test Item Value Reference Range Interpretation Comments RBC MORPHOLOGY REQUIRED (test code = RBCM) PLATELET ESTIMATE (test code = PLTEST) ADEQUATE PLATELET MORPHOLOGY (test code = NORMAL PLTMORPH) CBC W/AUTO [id number] 13:40:00 Test Item Value Reference Range Interpretation [...] = 0.00 K/mm3 0.0-0.1 N NRBC#) DIFFERENTIAL [id number] 13:40:00 Test Item Value Reference Range Interpretation Comments RBC MORPHOLOGY REQUIRED (test code = RBCM) PLATELET ESTIMATE (test code = PLTEST) [facility] (test code = NORMAL PLTMORPH) POCT URINALYSIS W SPECIFIC [id number] 18:27:00 Test Item Value Reference Range Interpretation [...] controls Lab Interpretation Abnormal (test code = 61962-1) [facility] A[facility]ELVIS W/O [id number] 00:10:00 [facility] 1935 Sex: M Name: KRISTEN FERREIRA : 1935 Age/S: 85 / M [address] [address] [place] Unit #: [id number] Loc: [place] [address] Phys: Undefined Provider Acct: [id number] Dis Date: Status: REG REF PHONE #: [phone] Exam Date: 12/26/2020 7215 FAX #: Reason: LEUKOCYTOSIS EXAMS: CPT: [id number] CT ABD PELVIS W/O CONT 84096 EXAM: - CT ABD PELVIS W/O CONT LOCATION: H61 CLINICAL HISTORY/INDICATION: LEUKOCYTOSIS COMPARISON: None TECHNIQUE: Axial CT images of the abdomen and pelvis were obtained from the diaphragm to the lesser trochanter without IV contrast administration. Coronal and sagittal reformations were reconstructed from [...] in the left hepatic lobe and 12 mm hypodense lesion in the right hepatic lobe cannot be further characterized on this noncontrast study. If further evaluation is desired, consider ultrasound or contrast-enhanced CT evaluation. GALLBLADDER/BILIARY SYSTEM: Normal CT appearance of the gallbladder. No common duct dilatation. PANCREAS: Unremarkable. SPLEEN: Calcified granuloma noted in the spleen. ADRENALS: No adrenal nodules. KIDNEYS/URETERS: Postsurgical changes of right nephrectomy. 5.1cm cyst in the inferior pole left kidney. 1.8 similar cyst in the midpole the left kidney. A few centimeter cortical hypodensities in the superior pole of left kidney are too small to characterize. No perinephric fluid collection or hydronephrosis. Mild nonspecific left-sided perinephric stranding. PAGE 1 Signed Report (CONTINUED) Name: KRISTEN FERREIRAland : 1935 Age/S: 85 / M [address] [address] [place] Unit #: [id number] Loc: [place] [address] Phys: Undefined Provider Acct: [id number] Dis Date: Status: REG REF PHONE #: [phone] Exam Date: 12/26/2020 4763 FAX #: Reason: LEUKOCYTOSIS EXAMS: CPT: [id number] CT ABD PELVIS W/O CONT 48944 (Continued) VESSELS: Aneurysmal dilatation of the infrarenal abdominal aorta 3 cm. Mild aortic atherosclerosis. LYMPH NODES: No lymphadenopathy. PERITONEUM / RETROPERITONEUM: No free air or fluid. GI TRACT: Small bowel and colon are not [...] Unremarkable. 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 Small [...] costovertebral angle IMPRESSION: 1. Mild nonspecific left per inephric fat stranding which could be age related changes versus pyelonephritis. Correlation with UAand focal CVA tenderness is recommended. 2. Otherwise, no acute abnormalities demonstrated and pelvis. 3. 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 CT follow-up every 3 years is recommendedto assess for size stability. 4. 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 5. Small right lower quadrant abdominal wall hernia with short segment herniation of the colon through the defect. PAGE 2 Signed Report (CONTINUED) [facility] 1935 Age/S: 85 / M [address] [address] [place] Unit #: [id number] Loc: [place] [address] Phys: Undefined Provider Acct: [id number] Dis Date: Status: REG REF PHONE #: [phone] Exam Date: 12/26/2020 2344 FAX #: Reason: LEUKOCYTOSIS EXAMS: CPT: [id number] CT ABD PELVIS W/O CONT 59797 (Continued) 6. Severe sigmoid colon diverticulosis. at 0010 Reported and signed by: Ny Delgado M.D. CC: Technologist:RT Bisi(R)(CT) CTDI: DLP: Trnscb Date/Time: 12/27/2020 (0010) [email or web address] Orig Print D/T: S: 12/27/2020 (0014) PAGE 3 Signed ReportCBC W/AUTO [id number] 12:07:00 Test Item Value Reference Range Interpretation [...] NT WITH AUTO DIFFERENTI AL. CBC W/AUTO [id number] 11:55:00 Test Item Value Reference Range Interpretation [...] code DIFF/SCN CRITERIA = MDIFF) BASIC METABOLIC [id number] 11:36:00 Test Item Value Reference Range Interpretation [...] MG/DL 8.5-10.1 N XR ELBOW <3 VW [id number] 17:12:15 1. ?No fracture. RL: 1105 HISTORY: ?elbow pain s/p fall ? right COMPARISON: ?None FINDINGS: 2 views right elbow. There is slight cortical irregularity to the lateral radial head which isfavored to be osteophyte formation rather than a nondisplaced fracture.There is no joint effusion. Distal humerus and proximal ulna are intact. Comb, Radiant Results Inft User - 12/16/2020 11:13 AM CSTHISTORY: elbow pain s/p fall rightCOMPARISON: NoneFINDINGS:2 views right elbow.There is slight cortical irregularity to the lateral radial head which isfavored to be osteophyte formation rather than a nondisplaced fracture.There is no joint effusion.Distal humerus and proximal ulna are intact.IMPRESSION1. No fracture.RL: 1105 [facility] CenterCT [facility] W/O [id number] 17:01:34 No acute intracranial abnormality. No acute [...] reformatted imageswere generated. FINDINGS: CT HEAD:No calvarial fracture. The ventricles and cerebral sulci are normal in caliber and configuration.No hydrocephalus, midline shift or pathological extra- axial fluidcollection is present. The basal cisterns are unremarkable. There is no acute intracranial hemorrhage or significant mass effect. Noparenchymal attenuation abnormality. The sethi-white matter differentiationis preserved. The mastoid air cellsand visualized paranasal air sinuses are clear.Bilateral pseudophakia is seen. CT CERVICAL SPINE: The vertebral bodies are normal in height and alignment. No facet fractureor subluxation is present. The craniocervical junction is intact. Mild spondylotic changes of the cervical spine are noted with minimalanterior marginal osteophytes as well as uncovertebral arthrosis, thelatter most conspicuous at C6-C7 and C7-T1. Multilevel facet arthrosis withpartial osseous fusion of the right C2-C3 facets. Theprevertebral soft tissues are unremarkable. Comb, Radiant Results Inft User - 12/16/2020 11:02 AM CSTExam: CT HEAD WITHOUT CONTRASTExam: CT CERVICAL SPINE WITHOUT CONTRASTHISTORY: fall, on blood thinners COMPARISON: CT head without contrast, 03/05/2019. CTA head and neck,03/14/2019.TECHNIQUE: Routine CTs of the head and cervical spine were performedwithout intravenous contrast, and coronal and sagittalreformatted imageswere generated. FINDINGS: CT HEAD:No calvarial fracture.The ventricles and cerebral sulci are normal in caliber and configuration.No hydrocephalus, midline shift or pathological extra-axial fluidcollection is present. The basal cisterns are unremarkable.There is no acute intracranialhemorrhage or significant mass effect. Noparenchymal attenuation abnormality. The sethi-white matter differentiationis preserved.The mastoid air cells and visualized paranasal air sinuses are clear.Bilateral pseudophakia is seen.CT CERVICAL SPINE:The vertebral bodies are normal in height and alignment.No facet fractureor subluxation is present. The craniocervical [...] this study and agree with theabove report.[facility]/O [id number] 17:01:34 No acute intracranial abnormality. No acute [...] reformatted imageswere generated. FINDINGS: CT HEAD:No calvarial fracture. The ventricles and cerebral sulci are normal in caliber and configuration.No hydrocephalus, midline shift or pathological extra-axial fluidcollection is present. The basal cisterns are unremarkable. There is no acute intracranial hemorrhage or significant mass effect. Noparenchymal attenuation abnormality. The sethi-white matter differentiationis preserved. The mastoid air cellsand visualized paranasal air sinuses are clear.Bilateral pseudophakia is seen. CT CERVICAL SPINE: The vertebral bodies are normal in height and alignment. No facet fractureor subluxation is present. The craniocervical junction is intact. Mild spondylotic changes of the cervical spine are noted with minimalanterior marginal osteophytes as well as uncovertebral arthrosis, thelatter most conspicuous at C6-C7 and C7-T1. Multilevel facet arthrosis withpartial osseous fusion of the right C2-C3 facets. Theprevertebral soft tissues are unremarkable. Rust, Radiant Results Inft User - 12/16/2020 11:02 AM CSTExam: CT HEAD WITHOUT CONTRASTExam: CT CERVICAL SPINE WITHOUT CONTRASTHISTORY: fall, on blood thinners COMPARISON: CT head without contrast, 03/05/2019. CTA head and neck,03/14/2019.TECHNIQUE: Routine CTs of the head and cervical spine were performedwithout intravenous contrast, and coronal and sagittalreformatted imageswere generated. FINDINGS: CT HEAD:No calvarial fracture.The ventricles and cerebral sulci are normal in caliber and configuration.No hydrocephalus, midline shift or pathological extra-axial fluidcollection is present. The basal cisterns are unremarkable.There is no acute intracranialhemorrhage or significant mass effect. Noparenchymal attenuation abnormality. The sethi-white matter d ifferentiationis preserved.The mastoid air cells and visualized paranasal air sinuses are clear.Bilateral pseudophakia is seen.CT CERVICAL SPINE:The vertebral bodies are normal in height and alignment.No facet fractureor subluxation is present. The craniocervical [...] this study and agree with theabove report. [facility] GLUCOSE (AUTOMATED)2020-12-14 17:36:00 Test Item Value Reference Range Interpretation Comments POCT GLU (test code = 2356589788) 139 mg/dL 70-110 H Lab Interpretation (test code = Abnormal 56458-8) [facility] GLUCOSE (AUTOMATED)2020-12-14 17:36:00 Test Item Value Reference Range Interpretation Comments POCT GLU (test code = 5534036306) 117 mg/dL 70-110 H Lab Interpretation (test code = Abnormal 79027-2) [facility] [id number] 02:57:44 Overall nonobstructive bowel gas pattern. RL: 135 END OF REPORT ORDERING PHYSICIAN: MARGARITA CASE CLINICAL INFORMATION: ? abd pain COMPARISON: None Technique: ? Single view of the abdomen Findings: Overall bowel gas pattern is nonobstructive. Air-filled stomach is noted.Surgical clips are seen in the left paramedian location in the uppera bdomen. No distinct abnormal calcifications are seen. Osseous structuresshow no evidence of acute abnormalities in [facility], Radiant Results Inft User - 12/13/2020 8:58 PM CSTORDERING PHYSICIAN: MARGARITA CASTORENAINICAL INFORMATION: abd pain COMPARISON: NoneTechnique: Single view of the abdomenFindings:Overall bowel gas pattern is nonobstructive. Air-filled stomach is noted.Surgical clips are seen in the left paramedian location in the upperabdomen. No distinct abnormal calcifications are seen. Osseous structuresshow no evidence of acute abnormalities inIMPRESSIONOverall nonobstructive bowel gas pattern.RL: 135END OF REPORT UnThe [facility] CenterXR CHEST 1 [id number] 23:31:01 1. New Right PICC project over the upper to mid SVC.2. Persistent subtle central predominant aspiration changes or ongoingbronchopneumonia-like changes in the right lung greater than left. EXAM: XR CHEST 1 VW COMPARISON: 12/10/2020 HISTORY: picc placement FINDINGS: The new right PICC tip overlies the upper to mid SVC Lungs: The lungs are well-expanded. Accounting for differences intechnique, similar a ppearance of peribronchial cuffing and hazy opacitiesin the central lungs, right greater than left. No new focal opacities. Nopneumothorax or pleural effusions. Heart/Mediastinum: The cardiomediastinalsilhouette is borderline in sizeaccounting for technique. Atherosclerotic calcifications of the aorta withmild unfolding of the descending portion. Bones: Thoracic spondylosis. The soft tissues appear normal [facility], Radiant Results Inft User - 12/13/2020 5:32 PM CSTEXAM: XR CHEST 1 VWCOMPARISON: 12/10/2020HISTORY: picc placement FINDINGS:The new right PICC tip overlies the upper to mid SVCLungs: The lungs are well- expanded. Accounting for differences intechnique, similar appearance of peribronchial cuffing and hazy opacitiesin the central lungs, right greater than left. No new focal opacities. Nopneumothorax or pleural effusions.Heart/Mediastinum: The cardiomediastinal silhouette is borderline in sizeaccounting for technique. Atherosclerotic calcifications of the aorta withmild unfolding of the descending portion.Bones: Thoracic spondylosis. The soft tissues appear normalIMPRESSION1. New Right PICCproject over the upper to mid SVC.2. Persistent subtle central predominant aspiration changes or ongo ingbronchopneumonia-like changes in the right lung greater than left.[facility] GLUCOSE (AUTOMATED)2020-12-13 23:19:00 Test Item Value Reference Range Interpretation Comments POCT GLU (test code = 4055055067) 165 mg/dL 70-110 H Lab Interpretation (test code = Abnormal 94826-1) [facility] GLUCOSE (AUTOMATED)2020-12-13 22:46:00 Test Item Value Reference Range Interpretation Comments POCT GLU (test code = 5530523659) 150 mg/dL 70-110 H Lab Interpretation (test code = Abnormal 84496-5) [facility] METABOLIC PANEL (NA, K, CL, CO2, GLUCOSE, BUN, CREATININE, CA)2020-12-13 21:05:00 Test Item Value Reference Range Interpretation Comments NA (test code = 134 mmol/L 135-145 L 4158885278) K (test code = 3.8 mmol/L 3.5-5 4660488393) CL (test code = 102 mmol/L 98-108 5813219212) CO2 TOTAL (test code = 27 mmol/L 23-31 1854649859) AGAP (test code = 2-16 4810648157) BUN (test code = 27 mg/dL 7-23 H 2131300886) GLUCOSE (test code = 130 mg/dL 70-110 H 4560005112) CREATININE (test code = 1.14 mg/dL 0.6-1.25 5277765447) CALCIUM (test code = 8.3 mg/dL 8.6-10.6 L 2156351656) eGFR Calculation mL/min/1.73m2 (Non-) (test code = 4626630329) eGFR Calculation mL/min/1.73m2 () (test code = 9126361750) BRIGIDO (test code = BRIGIDO) Association of [...] tests). Lab Interpretation Abnormal (test code = 93039-5) [facility] WITH [id number] 20:03:00 Test Item Value Reference Range Interpretation Comments WBC (test code = See_Comment H [Automated 2390-2) message] The system which generated this result transmit chava reference range : 4.20 - 10.70 10*3/?L. The reference range was not used to interpret this result as normal/abnormal . RBC (test code = See_Comment [Automated 098-8) message] The system which generated this result [...] RDW-SD (test code = 40.5 fL 38.5-51.6 14110-5) RDW-CV (test code = 12.2 % 12.1-15.4 788-0) PLT (test code = See_Comment [Automated 777-3) message] The system which generated this result transmit chava reference range : 150 - 328 10*3/ ?L. The reference range was not u sed to interpret th is result as normal/abnormal . MPV (test code = 9.8 fL 9.8-13 20655-9) NRBC/100 WBC (test See_Comment [Automat ed code = 6306248131) message] The system which generated this result transmit chava reference range : 0.0 - 10.0 /100 WBCs. The reference range was not used to interpret this result as normal/abnormal . NRBC x10^3 (test code <0.01 See_Comment [Auto mated = 8578201870) message] The system which generated this result transmit chava reference range : 10*3/?L. The reference range was not used to interpret this result as normal/abnormal . GRAN MAT (NEUT) % 76.6 % (test code = 770-8) IMM GRAN % (test code 1.40 % = 0482977982) LYMPH % (test code = 9.8 % 736-9) MONO % (test code = 9.8 % 5905-5) EOS % (test code = 2.0 % 713-8) BASO % (test code = 0.4 % 706-2) GRAN MAT x10^3(ANC) 10.11 10*3/uL 1.99-6.95 H (test code = 0766598779) IMM GRAN x10^3 (test 0.19 10*3/uL 0-0.06 H code = 4436211152) LYMPH x10^3 (test code 1.30 10*3/uL 1.09-3.23 = 731-0) MONO x10^3 (test code 1.30 10*3/uL 0.36-1.02 H = 742-7) EOS x10^3 (test code = 0.26 10*3/uL 0.06-0.53 711-2) BASO x10^3 (test code 0.05 10*3/uL 0.01-0.09 = 704-7) Lab Interpretation Abnormal (test code = 59410-5) [facility] GLUCOSE (AUTOMATED)2020-12-13 14:05:00 Test Item Value Reference Range Interpretation Comments POCT GLU (test code = 8086774277) 134 mg/dL 70-110 H Lab Interpretation (test code = Abnormal 41391-4) [facility] GLUCOSE (AUTOMATED)2020-12-13 04:15:00 Test Item Value Reference Range Interpretation Comments POCT GLU (test code = 2831912866) 159 mg/dL 70-110 H Lab Interpretation (test code = Abnormal 90330-8) [facility] [id number] 01:01:00 Test Item Value Reference Range Interpretation Comments Blood Culture-Aerobic No organisms No growth Previo us (test code = 29849-5) isolated prelim inary verified result was Culture In Progress on 12/07/2020 at 21 01 CSTPrevious preliminary verified result was No growth a t 24 hours on 12/08/2020 at 18 01 CSTPrevious preliminary verified result was No growth a t 48 hours on 12/09/2020 at 18 01 CSTPrevious preliminary verified result was No growth a t 72 hours on 12/10/2020 at 18 02 SYSTEM MANAGER Blood No organisms No growth Previous Culture-Anaerobic isolated preliminar y (test code = 33118-2) verifi ed result was Culture In Progress on 12/07/2020 at 21 01 CSTPrevious preliminary verified result was No growth a t 24 hours on 12/08/2020 at 18 01 CSTPrevious preliminary verified result was No growth a t 48 hours on 12/09/2020 at 18 01 CSTPrevious preliminary verified result was No growth a t 72 hours on 12/10/2020 at 18 02 SYSTEM MANAGER Lab Interpretation Normal (test code = 53642-5) [facility] GLUCOSE (AUTOMATED)2020-12-12 18:04:00 Test Item Value Reference Range Interpretation Comments POCT GLU (test code = 6896450781) 132 mg/dL 70-110 H Lab Interpretation (test code = Abnormal 07929-9) [facility] GLUCOSE (AUTOMATED)2020-12-12 14:46:00 Test Item Value Reference Range Interpretation Comments POCT GLU (test code = 6282742108) 134 mg/dL 70-110 H Lab Interpretation (test code = Abnormal 46096-2) [facility] [id number] 11:21:00 Test Item Value Reference Range Interpretation Comments NT-proBNP (test code 2010 pg/mL See_Comment H [Autom ated = 4284211892) message] The system which generated this result transmitted reference range : <=450. The reference range was not used to interpret this result as normal/abnormal . BRIGIDO (test code = BRIGIDO) Biotin has been reported to cause a negative bias, interpret results relative to patient's use of biotin. Lab Interpretation Abnormal (test code = 71650-5) [facility] (NA, K, CL, CO2, GLUCOSE, BUN, CREATININE, CA)2020-12-12 11:19:00 Test Item Value Reference Range Interpretation Comments NA (test code = 136 mmol/L 135-145 0688790911) K (test code = 3.6 mmol/L 3.5-5 2251539047) CL (test code = 100 mmol/L 98-108 1780919845) CO2 TOTAL (test code = 29 mmol/L 23-31 3519163746) AGAP (test code = 2-16 9413079484) BUN (test code = 31 mg/dL 7-23 H 5379832366) GLUCOSE (test code = 148 mg/dL 70-110 H 1782563586) CREATININE (test code = 1.33 mg/dL 0.6-1.25 H 9464323417) CALCIUM (test code = 9.0 mg/dL 8.6-10.6 4046607666) eGFR Calculation mL/min/1.73m2 (Non-) (test code = 6070184293) eGFR Calculation mL/min/1.73m2 () (test code = 5669984483) BRIGIDO (test code = BRIGIDO) Association of [...] tests). Lab Interpretation Abnormal (test code = 62956-2) [facility] WITH [id number] 10:26:00 Test Item Value Reference Range Interpretation Comments WBC (test code = See_Comment H [Automated 3184-2) message] The sy stem which generated this result transmitted reference range : 4.20 - 10.70 10*3/?L. The reference range was not used to interpret this result as normal/abnormal . RBC (test code = See_Comment [Automated 039-8) message] The sy stem which generated this [...] RDW-SD (test code = 40.5 fL 38.5-51.6 85613-4) RDW-CV (test code = 12.3 % 12.1-15.4 788-0) PLT (test code = See_Comment [Automated 777-3) message] The sy stem which generated this result transmitted reference range : 150 - 328 10*3/ ?L. The reference r harvinder was not used to interpret this result as normal/abnormal . MPV (test code = 10.2 fL 9.8-13 12781-9) NRBC/100 WBC (test See_Comment [Automat ed code = 3244187807) message] The system which generated this result transmitted reference range : 0.0 - 10.0 /100 WBCs. The refer ence range was not u sed to interpret th is result as normal/abnormal . NRBC x10^3 (test code <0.01 See_Comment [Auto mated = 3138033360) message] The s ystem which generated this result transmitted reference range : 10*3/?L. The reference range was not used to interpret this result as normal/abnormal . GRAN MAT (NEUT) % 74.9 % (test code = 770-8) IMM GRAN % (test code 1.20 % = 4572073184) LYMPH % (test code = 11.3 % 736-9) MONO % (test code = 10.1 % 5905-5) EOS % (test code = 2.2 % 713-8) BASO % (test code = 0.3 % 706-2) GRAN MAT x10^3(ANC) 8.69 10*3/uL 1.99-6.95 H (test code = 7854769072) IMM GRAN x10^3 (test 0.14 10*3/uL 0-0.06 H code = 6418740718) LYMPH x10^3 (test code 1.32 10*3/uL 1.09-3.23 = 731-0) MONO x10^3 (test code 1.18 10*3/uL 0.36-1.02 H = 742-7) EOS x10^3 (test code = 0.26 10*3/uL 0.06-0.53 711-2) BASO x10^3 (test code 0.04 10*3/uL 0.01-0.09 = 704-7) Lab Interpretation Abnormal (test code = 02539-1) [facility] GLUCOSE (AUTOMATED)2020-12-12 10:20:00 Test Item Value Reference Range Interpretation Comments POCT GLU (test code = 6439305922) 142 mg/dL 70-110 H Lab Interpretation (test code = Abnormal 05636-2) [facility] GLUCOSE (AUTOMATED)2020-12-11 18:13:00 Test Item Value Reference Range Interpretation Comments POCT GLU (test code = 3713088102) 152 mg/dL 70-110 H Lab Interpretation (test code = Abnormal 09700-5) [facility] [id number] 17:31:00 Test Item Value Reference Range Interpretation Comments URINE CULTURE (test <10,000 CFU/mL code = 630-4) Gram-Negative Bacilli [facility] GLUCOSE (AUTOMATED)2020-12-11 14:12:00 Test Item Value Reference Range Interpretation Comments POCT GLU (test code = 2300591567) 142 mg/dL 70-110 H Lab Interpretation (test code = Abnormal 22052-9) [facility] [id number] 11:28:00 Test Item Value Reference Range Interpretation Comments NT-proBNP (test code 4980 pg/mL See_Comment H [Autom ated = 4651948772) message] The system which generated this result transmitted reference range : <=450. The reference range was not used to interpret this result as normal/abnormal . BRIGIDO (test code = BRIGIDO) Biotin has been reported to cause a negative bias, interpret results relative to patient's use of biotin. Lab Interpretation Abnormal (test code = 06400-8) [facility] (NA, K, CL, CO2, GLUCOSE, BUN, CREATININE, CA)2020-12-11 11:20:00 Test Item Value Reference Range Interpretation Comments NA (test code = 136 mmol/L 135-145 3141866009) K (test code = 3.5 mmol/L 3.5-5 2834507126) CL (test code = 98 mmol/L 98-108 1938977072) CO2 TOTAL (test code = 29 mmol/L 23-31 2112339568) AGAP (test code = 2-16 8752184792) BUN (test code = 26 mg/dL 7-23 H 9430613960) GLUCOSE (test code = 155 mg/dL 70-110 H 4335688572) CREATININE (test code = 1.24 mg/dL 0.6-1.25 8824724484) CALCIUM (test code = 9.5 mg/dL 8.6-10.6 3422569208) eGFR Calculation mL/min/1.73m2 (Non-) (test code = 3439096664) eGFR Calculation mL/min/1.73m2 () (test code = 3253074600) BRIGIDO (test code = BRIGIDO) Association of [...] tests). Lab Interpretation Abnormal (test code = 03968-0) [facility] WITH [id number] 10:29:00 Test Item Value Reference Range Interpretation Comments WBC (test code = See_Comment H [Automated 6690-2) message] The sy stem which [...] RDW-SD (test code = 41.0 fL 38.5-51.6 09279-1) RDW-CV (test code = 12.3 % 12.1-15.4 788-0) PLT (test code = See_Comment [Automated 777-3) message] The sy stem which generated this result transmitted reference range : 150 - 328 10*3/ ?L. The reference r harvinder was not used to interpret this result as normal/abnormal . MPV (test code = 10.4 fL 9.8-13 09106-7) NRBC/100 WBC (test See_Comment [Automat ed code = 9441647581) message] The system which generated this result transmitted reference range : 0.0 - 10.0 /100 WBCs. The refer ence range was not u sed to interpret th is result as normal/abnormal . NRBC x10^3 (test code <0.01 See_Comment [Auto mated = 1621760756) message] The s ystem which generated this result transmitted reference range : 10*3/?L. The reference range was not used to interpret this result as normal/abnormal . GRAN MAT (NEUT) % 78.3 % (test code = 770-8) IMM GRAN % (test code 1.10 % = 0860047354) LYMPH % (test code = 9.7 % 736-9) MONO % (test code = 8.9 % 5905-5) EOS % (test code = 1.7 % 713-8) BASO % (test code = 0.3 % 706-2) GRAN MAT x10^3(ANC) 9.00 10*3/uL 1.99-6.95 H (test code = 2323601147) IMM GRAN x10^3 (test 0.13 10*3/uL 0-0.06 H code = 4277356337) LYMPH x10^3 (test code 1.11 10*3/uL 1.09-3.23 = 731-0) MONO x10^3 (test code 1.02 10*3/uL 0.36-1.02 = 742-7) EOS x10^3 (test code = 0.19 10*3/uL 0.06-0.53 711-2) BASO x10^3 (test code 0.03 10*3/uL 0.01-0.09 = 704-7) Lab Interpretation Abnormal (test code = 82435-3) [facility] Test Item Value Reference Range Interpretation Comments APPEARANCE (test code = Clear Clear 9766524115) COLOR (test code = Yellow Yellow 7378524707) PH (test code = 4.8-8.0 2527960391) SP GRAVITY (test code = 1.003-1.030 7811121747) GLU U QUAL (test code = Normal Normal 7190341863) BLOOD (test code = Negative Negative 4687968065) KETONES (test code = Negative Negative 7144693273) PROTEIN (test code = 100 mg/dL Negative A 2887-8) UROBILIN (test code = Normal Normal 2266683754) BILIRUBIN (test code = Negative Negative 5009180895) NITRITE (test code = Negative Negative 7061958765) LEUK CARLOS A (test code = Negative Negative 7199340457) RBC/HPF (test code = See_Comment [Autom ated message] 7249794968) The system nvite generated this result transmit chava reference range : 0 - 3 HPF. The refe rence range was not u sed to interpret th is result as normal/abnormal . WBC/HPF (test code = See_Comment [Autom ated message] 7117187924) The system nvite generated this result transmit chava reference range : 0 - 5 HPF. The refe rence range was not u sed to interpret th is result as normal/abnormal . BACTERIA (test code = Negative Negative 6073195455) Lab Interpretation (test Abnormal code = 61878-1) [facility] 1 [id number] 14:47:13 1. ?Mildly increased interstitial infiltrates. RL: 1105 HISTORY: ?chf ? shortness of breath COMPARISON: ?December 07, 2020 FINDINGS: AP chest shows mild interstitial infiltrates in a predominantly perihilardistribution slightly increased. Nopleural effusion. sleep medicine physician leadsoverlie the chest. [facility], Radiant Results Inft User - 12/10/2020 8:48 AM CSTHISTORY: chf shortness of breathCOMPARISON: December 07, 2020FINDINGS:AP chest shows mild interstitial infiltrates in a predominantly perihilardistribution slightly increased. No pleural effusion. sleep medicine physician leadsoverlie the chest.IMPRESSION1. Mildly increased interstitial infiltrates .RL: 1105 [facility] [id number] 14:13:00 Test Item Value Reference Range Interpretation Comments NT-proBNP (test code 8710 pg/mL See_Comment H [Autom ated = 7619330604) message] The system which generated this result transmitted reference range : <=450. The reference range was not used to interpret this result as normal/abnormal . BRIGIDO (test code = BRIGIDO) Biotin has been reported to cause a negative bias, interpret results relative to patient's use of biotin. Lab Interpretation Abnormal (test code = 49510-3) [facility] (NA, K, CL, CO2, GLUCOSE, BUN, CREATININE, CA)2020-12-10 14:06:00 Test Item Value Reference Range Interpretation Comments NA (test code = 136 mmol/L 135-145 0257537881) K (test code = 3.2 mmol/L 3.5-5 L 6456886970) CL (test code = 98 mmol/L 98-108 9901122924) CO2 TOTAL (test code = 28 mmol/L 23-31 8807299307) AGAP (test code = 2-16 8159521810) BUN (test code = 18 mg/dL 7-23 7046866585) GLUCOSE (test code = 175 mg/dL 70-110 H 8819413459) CREATININE (test code = 1.14 mg/dL 0.6-1.25 0189671834) CALCIUM (test code = 9.4 mg/dL 8.6-10.6 1675276872) eGFR Calculation mL/min/1.73m2 (Non-) (test code = 2564034503) eGFR Calculation mL/min/1.73m2 () (test code = 4030211272) BRIGIDO (test code = BRIGIDO) Association of [...] tests). Lab Interpretation Abnormal (test code = 09274-0) [facility] PAN[facility] (53224) (ALB,T.PRO,BILI T,BU/BC,ALT,AST,ALK PHOS)2020-12-10 14:06:00 Test Item Value Reference Range Interpretation Comments TOTAL BILI (test code = 2050040925) 0.8 mg/dL 0.1-1.1 BILI UNCON (test code = 5293745077) 0.5 mg/dL 0.1-1.1 BILI CONJ (test code = 1317833905) 0.0 mg/dL 0-0.3 T PROTEIN (test code = 3486201875) 7.1 g/dL 6.3-8.2 ALBUMIN (test code = 3242258966) 4.2 g/dL 3.5-5 ALK PHOS (test code = 6783494449) 115 U/L 34-122 ALTv (test code = 1742-6) 14 U/L 5-50 AST(SGOT) (test code = 6992919351) 36 U/L 13-40 Lab Interpretation (test code = Normal 06943-0) [facility]2021-[facility]-16 14:06:00 Test Item Value Reference Range Interpretation Comments MAGNESIUM (test code = 8574450679) 2.0 mg/dL 1.7-2.4 Lab Interpretation (test code = Normal 39924-0) [facility] WITH [id number] 13:31:00 Test Item Value Reference Range Interpretation Comments WBC (test code = See_Comment H [Automated 8740-2) message] The system which generated this result transmit chava reference range : 4.20 - 10.70 10*3/?L. The reference range was not used to interpret this result as normal/abnormal . RBC (test code = See_Comment [Automated 383-8) message] The system which generated this result [...] RDW-SD (test code = 41.2 fL 38.5-51.6 61642-4) RDW-CV (test code = 12.0 % 12.1-15.4 L 788-0) PLT (test code = See_Comment [Automated 777-3) message] The system which generated this result transmit chava reference range : 150 - 328 10*3/ ?L. The reference range was not u sed to interpret th is result as normal/abnormal . MPV (test code = 10.6 fL 9.8-13 08492-0) NRBC/100 WBC (test See_Comment [Automat ed code = 6975674642) message] The system which generated this result transmit chava reference range : 0.0 - 10.0 /100 WBCs. The reference range was not used to interpret this result as normal/abnormal . NRBC x10^3 (test code <0.01 See_Comment [Auto mated = 6669707023) message] The system which generated this result transmit chava reference range : 10*3/?L. The reference range was not used to interpret this result as normal/abnormal . GRAN MAT (NEUT) % 88.0 % (test code = 770-8) IMM GRAN % (test code 0.50 % = 8335456137) LYMPH % (test code = 5.9 % 736-9) MONO % (test code = 5.2 % 5905-5) EOS % (test code = 0.2 % 713-8) BASO % (test code = 0.2 % 706-2) GRAN MAT x10^3(ANC) 14.64 10*3/uL 1.99-6.95 H (test code = 8460339037) IMM GRAN x10^3 (test 0.08 10*3/uL 0-0.06 H code = 3020665457) LYMPH x10^3 (test code 0.99 10*3/uL 1.09-3.23 L = 731-0) MONO x10^3 (test code 0.87 10*3/uL 0.36-1.02 = 742-7) EOS x10^3 (test code = 0.03 10*3/uL 0.06-0.53 L 711-2) BASO x10^3 (test code 0.03 10*3/uL 0.01-0.09 = 704-7) Lab Interpretation Abnormal (test code = 91492-2) [facility] COVID [id number] 02:15:00COVID DMT InterpretationInterpretation/Recommendations:Molecular NAAT Tests for Active [...] COVID-19 testing the patient has had at [facility], including molecular NAAT testing (more commonly known as PCRtesting and Rapid ID Now testing) and antibody testing. It does not take into account any testing that a patient has had outside of the [facility] medical record. [facility] LABORATORY SERVICESCOVID [id number]-YvR-0 NAAT (no units) ? ? Date ? Value ? 12/07/2020 ? Not Detected ? ? ? 10/25/2020 ? Not Detected ? ? ? 07/12/2020 ? Not Detected ? ? ? 04/19/2020 ? Not Detected ? SARS-CoV-2 Rapid ID NOW (no units) ? ? Date ? Value ? 12/07/2020 ? Not Detected ? ? ? 07/09/2020 ? Not Detected ? [facility] LABOR[facility]evilleBLOOD CULTURE [id number] 15:04:00 Test Item Value Reference Range Interpretation Comments Blood Culture-Aerobic Culture positive. No growth AA P revious (test code = 08098-6) See Blood Culture p reliminary Workup for verified result additional was Culture In information. Progress on 12/07/2020 at 21 01 SYSTEM MANAGER Blood Culture positive. No growth AA Previous Culture-Anaerobic See Blood Culture preli minary (test code = 08546-5) Workup for verifi ed result additional was Culture In information. Progress on 12/07/2020 at 21 01 SYSTEM MANAGER Lab Interpretation Abnormal (test code = 88310-6) [facility]MINAL [id number] 10:38:00 Test Item Value Reference Range Interpretation Comments NT-proBNP (test code 5120 pg/mL See_Comment H [Autom ated = 1629276758) message] The system which generated this result transmitted reference range : <=450. The reference range was not used to interpret this result as normal/abnormal . BRIGIDO (test code = BRIGIDO) Biotin has been reported to cause a negative bias, interpret results relative to patient's use of biotin. Lab Interpretation Abnormal (test code = 31131-0) [facility] [id number] 08:18:00 Test Item Value Reference Range Interpretation Comments URIC ACID (test code = 6925203124) 6.7 mg/dL 3.6-8 Lab Interpretation (test code = Normal 86364-1) [facility]2021-02-15 08:18:00 Test Item Value Reference Range Interpretation Comments MAGNESIUM (test code = 2054368709) 1.7 mg/dL 1.7-2.4 Lab Interpretation (test code = Normal 38701-4) [facility]COMP. METABOLIC PANEL (32455)2020-12-09 08:18:00 Test Item Value Reference Range Interpretation Comments NA (test code = 137 mmol/L 135-145 4020784909) K (test code = 3.8 mmol/L 3.5-5 8823557360) CL (test code = 105 mmol/L 98-108 8076344378) CO2 TOTAL (test code = 22 mmol/L 23-31 L 3724552610) AGAP (test code = 2-16 2435877996) BUN (test code = 19 mg/dL 7-23 7066871110) GLUCOSE (test code = 221 mg/dL 70-110 H 6438532340) CREATININE (test code = 1.15 mg/dL 0.6-1.25 1676693183) TOTAL BILI (test code = 0.6 mg/dL 0.1-1.3 2906672146) CALCIUM (test code = 8.5 mg/dL 8.6-10.6 L 8139795243) T PROTEIN (test code = 6.3 g/dL 6.3-8.2 3075560539) ALBUMIN (test code = 3.8 g/dL 3.5-5 4218197439) ALK PHOS (test code = 86 U/L 34-122 4361752703) ALTv (test code = 12 U/L 5-50 1742-6) AST(SGOT) (test code = 25 U/L 13-40 8059314640) eGFR Calculation mL/min/1.73m2 (Non-) (test code = 9344717821) eGFR Calculation mL/min/1.73m2 () (test code = 6062738094) BRIGIDO (test code = BRIGIDO) Association of [...] tests). Lab Interpretation Abnormal (test code = 01276-0) [facility] UNCONJUGATED/BILI [id number] 08:17:00 Test Item Value Reference Range Interpretation Comments BILI CONJ (test code = 6193063364) 0.0 mg/dL 0-0.3 BILI UNCON (test code = 8342371646) 0.4 mg/dL 0.1-1.1 Lab Interpretation (test code = Normal 47585-8) [facility] WITH [id number] 08:04:00 Test Item Value Reference Range Interpretation [...] RDW-SD (test code = 41.1 fL 38.5-51.6 52426-2) RDW-CV (test code = 12.4 % 12.1-15.4 788-0) PLT (test code = See_Comment [Automated 777-3) message] The system which generated this result transmit chava reference range : 150 - 328 10*3/ ?L. The reference range was not u sed to interpret th is result as normal/abnormal . MPV (test code = 9.9 fL 9.8-13 08381-9) NRBC/100 WBC (test See_Comment [Automat ed code = 4606627218) message] The system which generated this result transmit chava reference range : 0.0 - 10.0 /100 WBCs. The reference range was not used to interpret this result as normal/abnormal . NRBC x10^3 (test code <0.01 See_Comment [Auto mated = 2063390508) message] The system which generated this result transmit chava reference range : 10*3/?L. The reference range was not used to interpret this result as normal/abnormal . GRAN MAT (NEUT) % 94.0 % (test code = 770-8) IMM GRAN % (test code 0.50 % = 9097963895) LYMPH % (test code = 2.3 % 736-9) MONO % (test code = 3.1 % 5905-5) EOS % (test code = 0.0 % 713-8) BASO % (test code = 0.1 % 706-2) GRAN MAT x10^3(ANC) 14.08 10*3/uL 1.99-6.95 H (test code = 8518471217) IMM GRAN x10^3 (test 0.08 10*3/uL 0-0.06 H code = 0745070572) LYMPH x10^3 (test code 0.35 10*3/uL 1.09-3.23 L = 731-0) MONO x10^3 (test code 0.47 10*3/uL 0.36-1.02 = 742-7) EOS x10^3 (test code = <0.03 0.06-0.53 L 711-2) BASO x10^3 (test code <0.03 0.01-0.09 = 704-7) Lab Interpretation Abnormal (test code = 85336-4) [facility]SE (AUTOMATED)2020-12-09 03:50:00 Test Item Value Reference Range Interpretation Comments POCT GLU (test code = 8766318750) 212 mg/dL 70-110 H Lab Interpretation (test code = Abnormal 81125-3) [facility] 1 [id number] 02:32:31No bowel distention. RL: 5611 END OF [...] hoursTechnical Quality: GoodFindings: There are surgical clips in the right medial abdomen. There is nobowel distention. There is no visceromegaly.IMPRESSIONNo bowel distention.RL: 5611END OF REPORT [facility]LAB [facility] COVID [id number] 00:21:00COVID DMT InterpretationInterpretation/Recommendations:Molecular NAAT Tests for Active [...] COVID-19 testing the patient has had at [facility], including molecular NAAT testing (more commonly known as PCRtesting and Rapid ID Now testing) and antibody testing. It does not take into account any testing that a patient has had outside of the [facility] medical record. [facility] LABORATORY SERVICESCOVID [id number]-[id number]-7 NAAT (no units) ? ? Date ? Value ? 12/07/2020 ? Not Detected ? ? ? 10/25/2020 ? Not Detected ? ? ? 07/12/2020 ? Not Detected ? ? ? 04/19/2020 ? Not Detected ? SARS-CoV-2 Rapid ID NOW (no units) ? ? Date ? Value ? 12/07/2020 ? Not Detected ? ? ? 07/09/2020 ? Not Detected ? [facility]evilleGRAM NEGATIVE BLOOD PATHOGENS DNA [id number] 21:50:00 Test Item Value Reference Range Interpretation Comments Escherichia coli (test Positive Negative, See A code = 00411-3) Comment/Narrative CTX-M (test code = Positive Negative, See A 17381-4) Comment/Narrative BRIGIDO (test code = BRIGIDO) Gram-negative bacteria with extended-spectrum beta-lactamase (ESBL) production detected by DNA probe. Preferred therapy is ertapenem. ?Infectious Diseases consultationis recommended. Please contact the Antimicrobial Stewardship Program with questions.ASP Pager: ?[phone] __ See blood culture result for additional information. ?Testing included eight identification and six resistance marker targets. Lab Interpretation Abnormal (test code = 00424-2) [facility]evillePROCALCITONIN2021-02-14 16:47:00 Test Item Value Reference Range Interpretation Comments Procalcitonin (test 19.12 ng/mL <0.07 H code = 4915083231) BRIGIDO (test code = BRIGIDO) INTERPRETATION OF [...] lung abscess/empyema. For further information please refer to:[email or web address] Lab Interpretation Abnormal (test code = 66034-3) [facility]evilleSEDIMENTATION [id number] 12:27:00 Test Item Value Reference Range Interpretation Comments ESR (test code = See_Comment H [Automated message] 5584430001) The system nvite generated this result transmitted ref erence range: 0 - 10 m m/HR. The reference r harvinder was not used to interpret this result as normal/abnor mal. Lab Interpretation (test Abnormal code = 40115-4) [facility]-TERMINAL [id number] 12:13:00 Test Item Value Reference Range Interpretation Comments NT-proBNP (test code 4860 pg/mL See_Comment H [Autom ated = 9896806539) message] The system which generated this result transmitted reference range : <=450. The reference range was not used to interpret this result as normal/abnormal . BRIGIDO (test code = BRIGIDO) Biotin has been reported to cause a negative bias, interpret results relative to patient's use of biotin. Lab Interpretation Abnormal (test code = 81136-3) [facility] METABOLIC PANEL (NA, K, CL, CO2, GLUCOSE, BUN, CREATININE, CA)2020-12-08 12:05:00 Test Item Value Reference Range Interpretation Comments NA (test code = 137 mmol/L 135-145 8922150119) K (test code = 3.8 mmol/L 3.5-5 0028006251) CL (test code = 107 mmol/L 98-108 7967654261) CO2 TOTAL (test code = 23 mmol/L 23-31 3112964260) AGAP (test code = 2-16 3934746270) BUN (test code = 25 mg/dL 7-23 H 7531265120) GLUCOSE (test code = 128 mg/dL 70-110 H 2326329111) CREATININE (test code = 1.39 mg/dL 0.6-1.25 H 6315210151) CALCIUM (test code = 8.2 mg/dL 8.6-10.6 L 1408558068) eGFR Calculation mL/min/1.73m2 (Non-) (test code = 5529905845) eGFR Calculation mL/min/1.73m2 () (test code = 9669460471) BRIGIDO (test code = BRIGIDO) Association of [...] tests). Lab Interpretation Abnormal (test code = 27341-5) [facility] FUN[facility] PANEL (24882) (ALB,T.PRO,BILI T,BU/BC,ALT,AST,ALK PHOS)2020-12-08 12:05:00 Test Item Value Reference Range Interpretation Comments TOTAL BILI (test code = 0351821283) 0.6 mg/dL 0.1-1.1 BILI UNCON (test code = 7707436467) 0.6 mg/dL 0.1-1.1 BILI CONJ (test code = 0721773373) 0.0 mg/dL 0-0.3 T PROTEIN (test code = 2891330728) 5.3 g/dL 6.3-8.2 L ALBUMIN (test code = 1904931950) 3.0 g/dL 3.5-5 L ALK PHOS (test code = 8221330350) 71 U/L 34-122 ALTv (test code = 1742-6) 10 U/L 5-50 AST(SGOT) (test code = 9879081612) 20 U/L 13-40 Lab Interpretation (test code = Abnormal 69880-0) [facility] [id number] 12:05:00 Test Item Value Reference Range Interpretation Comments URIC ACID (test code = 3919425844) 7.3 mg/dL 3.6-8 Lab Interpretation (test code = Normal 45694-0) [facility]UM2021-02-14 12:05:00 Test Item Value Reference Range Interpretation Comments MAGNESIUM (test code = 6848903199) 1.8 mg/dL 1.7-2.4 Lab Interpretation (test code = Normal 00889-3) [facility]evillePHOSPHORUS2021-02-14 12:05:00 Test Item Value Reference Range Interpretation Comments PHOSPHORUS (test code = 6814642920) 2.7 mg/dL 2.5-5 Lab Interpretation (test code = Normal 08457-6) [facility]evilleCB WITH [id number] 11:57:00 Test Item Value Reference Range Interpretation Comments WBC (test code = See_Comment H [Automated 4490-2) message] The system which generated this result transmit chava reference range : 4.20 - 10.70 10*3/?L. The reference range was not used to interpret this result as normal/abnormal . RBC (test code = See_Comment L [Automated 919-8) message] The system which generated this result [...] RDW-SD (test code = 43.5 fL 38.5-51.6 49607-5) RDW-CV (test code = 12.6 % 12.1-15.4 788-0) PLT (test code = See_Comment [Automated 777-3) message] The system which generated this result transmit chava reference range : 150 - 328 10*3/ ?L. The reference range was not u sed to interpret th is result as normal/abnormal . MPV (test code = 10.3 fL 9.8-13 89256-5) NRBC/100 WBC (test See_Comment [Automat ed code = 8065885027) message] The system which generated this result transmit chava reference range : 0.0 - 10.0 /100 WBCs. The reference range was not used to interpret this result as normal/abnormal . NRBC x10^3 (test code <0.01 See_Comment [Auto mated = 8401815128) message] The system which generated this result transmit chava reference range : 10*3/?L. The reference range was not used to interpret this result as normal/abnormal . GRAN MAT (NEUT) % 89.3 % (test code = 770-8) IMM GRAN % (test code 0.60 % = 1210406336) LYMPH % (test code = 5.6 % 736-9) MONO % (test code = 4.0 % 5905-5) EOS % (test code = 0.3 % 713-8) BASO % (test code = 0.2 % 706-2) GRAN MAT x10^3(ANC) 15.77 10*3/uL 1.99-6.95 H (test code = 6095556107) IMM GRAN x10^3 (test 0.10 10*3/uL 0-0.06 H code = 9796366790) LYMPH x10^3 (test code 0.98 10*3/uL 1.09-3.23 L = 731-0) MONO x10^3 (test code 0.71 10*3/uL 0.36-1.02 = 742-7) EOS x10^3 (test code = 0.06 10*3/uL 0.06-0.53 711-2) BASO x10^3 (test code 0.03 10*3/uL 0.01-0.09 = 704-7) Lab Interpretation Abnormal (test code = 35843-3) [facility] BeevilleLactic Acid Whole [id number] 11:14:00 Test Item Value Reference Range Interpretation Comments LACTIC ACID (test code = 1.55 mmol/L 0.5-2.2 4772510868) Lab Interpretation (test code = Normal 26384-4) [facility]evilleCORONAVIRUS COVID-19 [id number] 09:34:00 Test Item Value Reference Range Interpretation Comments SARS-CoV-2 NAAT (test Not Detected Not Detected code = 27744-3) BRIGIDO (test code = BRIGIDO) [employer] Fusion SARS-CoV-2 Assay is a real-time RT-PCR test intended for the qualitative detection of RNA from SARS-CoV-2 from nasopharyngeal (IN [employer] REFUELING [employer]PERATOR) specimens. It is used under Emergency Use [...] indicated. Lab Interpretation Normal (test code = 15493-7) [facility]evilleGLYCOSYLATED HEMOGLOBIN (A1C)2020-12-08 08:08:00 Test Item Value Reference Range Interpretation Comments HGB A1C (test code = 7.4 % 4-6 H 4548-4) BRIGIDO (test code = BRIGIDO) %A1C (NGSP) Interpretation (ADA)4.8-5.6 ? ? Normal or (Non-Diabetic Range)5.7-6.4 ? ? Increased Risk (Pre-Diabetic)>6.5 ?Diabetes Indicated Lab Interpretation Abnormal (test code = 37410-1) [facility] BeevillePROTHROMBIN TIME / [id number] 07:53:00 Test Item Value Reference Range Interpretation Comments PROTIME PATIENT (test See_Comment [Auto mated message] code = 5964-2) The system Hunie generated this result transmitted ref erence range: 12.0 - 1 4.7 Seconds. The re ference range was not u sed to interpret this result as normal/abnor mal. INR (test code = 6301-6) Nor mal INR <1.1; Warfarin Therap eutic range 2.0 to 3. 0 or 2.5 to 3.5, dep ending upon the indica tions. Lab Interpretation (test Normal code = 79400-3) [facility]eville[facility] [id number] 07:52:00 Test Item Value Reference Range Interpretation Comments URIC ACID (test code = 3108299363) 8.1 mg/dL 3.6-8 H Lab Interpretation (test code = Abnormal 84070-6) [facility] BeevilleLIPID PANEL (01134)(TOTAL CHOLESTEROL, TRIGLYCERIDES, HDL)2020-12-08 07:52:00 Test Item Value Reference Range Interpretation Comments CHOL (test code = 193 mg/dL 120-200 0686143344) HDL (test code = 36 mg/dL >40 L 8980544151) HDLC RATIO (test code = See_Comment H [Au tomated message] 5821293283) The system nvite generated this result transmit chava reference range : <=5.0. The refe rence range was not u sed to interpret th is result as normal/abnormal . TRIG (test code = 134 mg/dL 30-170 2665529965) LDL CHOL (test code = 130 mg/dL See_Comment [Auto mated message] 43685-4) The system nvite generated this result transmit chava reference range : <=160. The refe rence range was not u sed to interpret th is result as normal/abnormal . VLDL (test code = 27 mg/dL 5-60 5656717425) Lab Interpretation (test Abnormal code = 42573-5) [facility]evilleTHYROID STIMULATING [id number] 07:42:00 Test Item Value Reference Range Interpretation Comments TSH (test code = See_Comment [Automated message] 5492822526) The system nvite generated this result transmitted ref erence range: 0.45 - 4 .70 mIU/L. The refe rence range was not u sed to interpret this result as normal/abnor mal. Lab Interpretation (test Normal code = 55378-0) [facility]evilleCT ABDOMEN PELVIS WO [id number] 07:37:10 No acute process identified in the abdomen or pelvis. Status post right nephrectomy. Persistent hematuria in the absence of urinary system calculus may warrantfurther evaluation. Multiple cortical cysts without hydronephrosis or renal calculus. Colonic diverticulosis without evidence for acute diverti culitis. RL: 460 AFC: [id number] Ordering physician: MARGARITA CASE Indication: Abdominal pain, flank pain, hematuria COMPARISON: None TECHNIQUE: Axial images of the abdomen and pelvis [...] - 12/08/2020 1:38 AM CSTOrdering physician: MARGARITA JOHNSONndication: Abdominal pain, flank pain, hematuriaCOMPARISON: NoneTECHNIQUE: Axial [...] abdomen and pelvis demonstrate no osseous destructive lesion.IMPRESSIONNo acute process identified in the abdomen or pelvis.Status post right nephrectomy.Persistent hematuria in the absence of urinary system calculus may warrantfurther evaluation.Multiple cortical cysts without hydronephrosis or renal calculus.Colonic diverticulosis without evidence for acute diverticulitis.RL: [id number]: [id number] signed by Ninoska Avila MD, PhD at 12/08/2020 1:37 AMUnThe [facility] at Westlake Medical CenterLactic Acid Whole [id number] 07:35:00 Test Item Value Reference Range Interpretation Comments LACTIC ACID (test code = 2.72 mmol/L 0.5-2.2 H 8036717350) Lab Interpretation (test code = Abnormal 69285-0) [facility] 07[facility]11:00 Test Item Value Reference Range Interpretation Comments MAGNESIUM (test code = 0212434479) 1.8 mg/dL 1.7-2.4 Lab Interpretation (test code = Normal 54205-8) [facility]2021-02-14 07:11:00 Test Item Value Reference Range Interpretation Comments PHOSPHORUS (test code = 2703616154) 1.7 mg/dL 2.5-5 L Lab Interpretation (test code = Abnormal 73746-6) [facility]evilleCREATINE [id number] 07:10:00 Test Item Value Reference Range Interpretation Comments CK (test code = 9584874701) 36 U/L 33-194 Lab Interpretation (test code = Normal 41627-6) [facility]eville[facility]inalysis2021-02-14 02:26:00 Test Item Value Reference Range Interpretation Comments APPEARANCE (test code = Hazy Clear A 0157306317) COLOR (test code = Yellow Yellow 5687296781) PH (test code = 4.8-8.0 1134997468) SP GRAVITY (test code = 1.003-1.030 1676935922) GLU U QUAL (test code = Normal Normal 5191219948) BLOOD (test code = 3+ Negative A 8271497480) KETONES (test code = Negative Negative 2427358208) PROTEIN (test code = 30 mg/dL Negative A 2887-8) UROBILIN (test code = Normal Normal 0383635053) BILIRUBIN (test code = Negative Negative 7262629234) NITRITE (test code = Negative Negative 4401639749) LEUK CARLOS A (test code = 25/uL Negative A 1813524717) RBC/HPF (test code = >182 See_Comment H [Autom ated message] 5242934049) The system nvite generated this result transmitted ref erence range: 0 - 3 HP F. The reference range was not used to int erpret this result as normal/abnormal . WBC/HPF (test code = See_Comment H [Autom ated message] 8672229591) The system nvite generated this result transmitted ref erence range: 0 - 5 HP F. The reference range was not used to int erpret this result as normal/abnormal . BACTERIA (test code = Moderate Negative A 7821252804) Lab Interpretation (test Abnormal code = 63011-4) [facility]evilleL[facility] Acid Whole [id number] 02:08:00 Test Item Value Reference Range Interpretation Comments LACTIC ACID (test code = 2.92 mmol/L 0.5-2.2 H 9328853857) Lab Interpretation (test code = Abnormal 37220-2) [facility]OVID[facility] (ID NOW RAPID TESTING)2020-12-08 00:03:00 Test Item Value Reference Range Interpretation Comments SARS-CoV-2 Rapid ID NOW Not Detected Not Detected (test code = 84987-5) BRIGIDO (test code = BRIGIDO) ID NOW COVID-19 Assay is an isothermal nucleic acid amplification test intended for the qualitative detection of nucleic acid from SARS-CoV-2 viral RNA in nasopharyngeal ([employer]) specimens. It is used under Emergency Use [...] indicated. Lab Interpretation Normal (test code = 31880-4) [facility]evilleTroponin [id number] 23:49:00 Test Item Value Reference Range Interpretation Comments TROPONIN I (test 0.010 ng/mL See_Comment [Automated code = 3029033273) message] The system which generated this result [...] ? Lab Interpretation Normal (test code = 91752-0) [facility]evilleN-TERMINAL [id number] 23:45:00 Test Item Value Reference Range Interpretation Comments NT-proBNP (test code 2170 pg/mL See_Comment H [Autom ated = 8334535916) message] The system which generated this result transmitted reference range : <=450. The reference range was not used to interpret this result as normal/abnormal . BRIGIDO (test code = BRIGIDO) Biotin has been reported to cause a negative bias, interpret results relative to patient's use of biotin. Lab Interpretation Abnormal (test code = 83771-6) [facility] Metabolic Panel (NA, K, CL, CO2, GLUCOSE, BUN, CREATININE, CA)2020-12-07 23:37:00 Test Item Value Reference Range Interpretation Comments NA (test code = 136 mmol/L 135-145 8701067056) K (test code = 3.8 mmol/L 3.5-5 6345292364) CL (test code = 102 mmol/L 98-108 1127783610) CO2 TOTAL (test code = 22 mmol/L 23-31 L 3022012150) AGAP (test code = 2-16 0778346700) BUN (test code = 25 mg/dL 7-23 H 0256123719) GLUCOSE (test code = 202 mg/dL 70-110 H 1926248355) CREATININE (test code = 1.41 mg/dL 0.6-1.25 H 9500019940) CALCIUM (test code = 9.0 mg/dL 8.6-10.6 0276940797) eGFR Calculation mL/min/1.73m2 (Non-) (test code = 1208025495) eGFR Calculation mL/min/1.73m2 () (test code = 4046491694) BRIGIDO (test code = BRIGIDO) Association of [...] tests). Lab Interpretation Abnormal (test code = 22784-3) [facility] (ALB, T.PRO, BILI T, BU/BC, ALT, AST, ALK PHOS)2020-12-07 23:37:00 Test Item Value Reference Range Interpretation Comments TOTAL BILI (test code = 4101480932) 0.7 mg/dL 0.1-1.1 BILI UNCON (test code = 5327816254) 0.6 mg/dL 0.1-1.1 BILI CONJ (test code = 2797761813) 0.0 mg/dL 0-0.3 T PROTEIN (test code = 9198430853) 6.3 g/dL 6.3-8.2 ALBUMIN (test code = 7778354555) 3.9 g/dL 3.5-5 ALK PHOS (test code = 4048941739) 104 U/L 34-122 ALTv (test code = 1742-6) 12 U/L 5-50 AST(SGOT) (test code = 3218213791) 23 U/L 13-40 Lab Interpretation (test code = Normal 79283-8) [facility]evilleCBC with [id number] 23:30:00 Test Item Value Reference Range Interpretation Comments WBC (test code = See_Comment [Automated 9822-2) message] The sy stem which generated this result transmitted reference range : 4.20 - 10.70 10*3/?L. The reference range was not used to interpret this result as normal/abnormal . RBC (test code = See_Comment [Automated 170-8) message] The sy stem which generated this [...] RDW-SD (test code = 42.0 fL 38.5-51.6 10273-3) RDW-CV (test code = 12.2 % 12.1-15.4 788-0) PLT (test code = See_Comment [Automated 777-3) message] The sy stem which generated this result transmitted reference range : 150 - 328 10*3/ ?L. The reference r harvinder was not used to interpret this result as normal/abnormal . MPV (test code = 9.7 fL 9.8-13 L 92707-2) NRBC/100 WBC (test See_Comment [Automat ed code = 5974756968) message] The system which generated this result transmitted reference range : 0.0 - 10.0 /100 WBCs. The refer ence range was not u sed to interpret th is result as normal/abnormal . NRBC x10^3 (test code <0.01 See_Comment [Auto mated = 4018173107) message] The s ystem which generated this result transmitted reference range : 10*3/?L. The reference range was not used to interpret this result as normal/abnormal . GRAN MAT (NEUT) % 97.3 % (test code = 770-8) IMM GRAN % (test code 0.40 % = 1808276460) LYMPH % (test code = 1.5 % 736-9) MONO % (test code = 0.4 % 5905-5) EOS % (test code = 0.2 % 713-8) BASO % (test code = 0.2 % 706-2) GRAN MAT x10^3(ANC) 8.05 10*3/uL 1.99-6.95 H (test code = 7758501856) IMM GRAN x10^3 (test 0.03 10*3/uL 0-0.06 code = 3423294938) LYMPH x10^3 (test code 0.12 10*3/uL 1.09-3.23 L = 731-0) MONO x10^3 (test code 0.03 10*3/uL 0.36-1.02 L = 742-7) EOS x10^3 (test code = <0.03 0.06-0.53 L 711-2) BASO x10^3 (test code <0.03 0.01-0.09 = 704-7) Lab Interpretation Abnormal (test code = 57865-1) [facility] 1 [id number] 23:22:21 No acute cardiopulmonary abnormality. Preliminary Report Dictated by Resident: Yefri Cheatham MD., have reviewed this study and agree withthe above report.XR CHEST 1 VW Comparison: None available History: fever Technique: Frontal radiograph Findings: Mild hilar vascular congestion. Left basilar subsegmental atelectasis ispresent. No pleural effusion, focal consolid ation, or pneumothorax isidentified. The cardiomediastinal silhouette is normal in size. Atheroscleroticcalcifications are seen in the aortic arch. No acute osseous abnormality is present. [facility], Radiant Results Inft User - 12/07/2020 5:23 PM CSTXR CHEST 1 VWComparison: None availableHistory: fever Technique: Frontal radiographFindings:Mild hilar vascular congestion. Left basilar subsegmental atelectasis ispresent. No pleural effusion, focal consolidation, or pneumothorax isidentified. The cardiomediastinal silhouette is normal in size. Atheroscleroticcalcifications are seen in the aortic arch.No acute osseous abnormality is present.IMPRESSIONNo acute cardiopulmonary abnormality.Preliminary Report Dictated by Resident: Yefri Hernandes MD., have reviewed this study and agree withthe above report.[facility]evilleLactic Acid Whole [id number] 23:19:00 Test Item Value Reference Range Interpretation Comments LACTIC ACID (test code = 4.60 mmol/L 0.5-2.2 H 7378261653) Lab Interpretation (test code = Abnormal 30932-5) [facility] TIME OR (NON-REPORTABLE)2020-10-28 17:22:44 These images do not require a Radiology diagnostic report.[facility] TIME OR (NON-REPORTABLE)2020-07-15 13:18:40These images do not require a Radiology diagnostic report.[facility] MODIFIED BARIUM [id number] 19:07:34HISTORY: Dysphagia. Change in bowel habits TECHNIQUE: [...] without aspiration into the larynx or trachea. [facility], Radiant Results Inft User - 06/26/2020 2:08 PM CDTHISTORY: Dysphagia. Change in bowel habitsTECHNIQUE: Swallowing function was evaluated with the patient sittingupright in a chair, in the presence of speech therapist. C-arm fluoroscopywith video imaging of her utilized. Swallowing function was evaluated usingthin barium, thick barium, barium mixed with pudding, piece of grahamcra cker.FINDINGS: Swallowing function appeared normal. Patient was able [...] without aspiration into the larynx or trachea. [facility] TIME OR (NON-REPORTABLE)2020-04-22 14:11:11 These images do not require a Radiology diagnostic report.[facility]evilleFL [facility] (NON-REPORTABLE)2020-01-08 14:29:04These images do not require a Radiology diagnostic report.[facility]evilleUS RETROPERITONEAL [id number] 16:04:37HISTORY: UTI. TECHNIQUE: Left kidney was evaluated [...] CT scan of12/24/2017. CONCLUSIONS:1. 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 Nohydronephrosis.2. S/P right nephrectomy.[facility], Radiant Results Inft User - 12/19/2019 10:05 AM CSTHISTORY: UTI.TECHNIQUE: Left kidney was evaluated in multiple planes with the patient indifferent positions. FINDINGS: Comparison is made with noncontrast enhanced CT scan of theabdomen dated 12/24/2017.Patient is status post right nephrectomy.Left kidneymeasured approximately 11.6 x 7.1 x 5.6 cm with corticalthickness up to 17 mm. Large anechoic lesionof 4.7 x 5.3 x 3.4 cm sizenoted [...] II left renal cystic lesions discussed above. Nohy dronephrosis.2. S/P right nephrectomy.[facility] LUMBAR SPINE WO [id number] 17:13:23HISTORY: Chronic low back pain. TECHNIQUE: Sagittal [...] nodesor hydronephrosis. Focal ectasia of the lower abdominalaorta are noted atthe level of L4 with maximum diameter of 27 mm. Multiple cysts arepartially visualized and the left kidney. Right kidney is absent.Comparison is made with 12/24/2017 CT scan.L1-L2: Shallow Schmorl's nodes in the vertebral endplates, smallosteophytes along the ventral vertebral margins and mild facet arthritis.No disc bulge or disc herniation into the spinal canal.L2-L3: Small osteophytes along the ventral vertebral margins, mild facetarthritis. No disc bulge into the spinal canal or into the neural foramina.L3-L4: Minimal deformity in the upper plate could be due to remote trauma.Small osteophytes along the ventral vertebral margins, bilateral facetarthritis noted. Bulging of the disc into right lateral recess is causingmild lateral recess stenosis with thecal sac compression. No significantnerve root compression suspected.L4-L5: Small osteophytes along the ventral vertebral margins, minimaldiffuse bulging of the disc, facet arthritis with slightly thickenedligaments causing spinal stenosis with mild to moderate circumferentialthecal sac compression. Foraminal encroachment noted on both sides but nosignificant nerve root compression suspected.L5-S1: Minimal disc bulge in the midline with minimal thecal saccompression. Bilateral facet arthritis with fluid in both facet joints a ndslightly thickened ligaments causing minimal thecal sac compression.Foraminal [...] to bulging disc withoutsignificant nerve root compression.[facility]
--- NOTE | 2022-11-28 15:36 | RAD REPORT ---
EXAM DESCRIPTION: USExtrem Venous W Compress Bil11/28/2022 3:26 pm CLINICAL HISTORY: Leg swelling COMPARISON: none FINDINGS: The common femoral, superficial femoral, greater saphenous, popliteal and posterior tibial veins bilaterally are compressible and demonstrate augmentation. Doppler demonstrates good flow. Grayscale, color and spectral analysis performed on all vessels IMPRESSION: No evidence of deep venous thrombosis involving either lower extremity.
[2022-11-28 15:52] LABS: Absolute Lymphocytes (CBC) 1.9 K/uL (0.7-4.9); Protime INR 1.12
[2022-11-28 16:04] LABS: Albumin 3.5 g/dL (3.4-5.0); Bilirubin Direct 0.1 mg/dL (0-0.2); Bilirubin Total 0.4 mg/dL (0.2-1.0); Magnesium 2.3 mg/dL (1.6-2.4); Potassium 3.6 mmol/L (3.5-5.1); Protein, Total 6.9 g/dL (6.4-8.2); Troponin High Sensitivity 10.1 pg/mL (<58.9)
[2022-11-28 16:05] LABS: Hematocrit 45.3 % (39.6-49.0); MCV 92.3 fL (80-100); MPV 8.2 fL (7.6-11.3)
[2022-11-28] MEDS ORDERED: FUROSEMIDE 40 MG/4 ML VIAL ONE (16:23)
--- NOTE | 2022-11-28 16:33 | RAD REPORT ---
EXAM DESCRIPTION: Alexandrea Single View11/28/2022 3:44 pm CLINICAL HISTORY: Shortness of breath COMPARISON: October 2022 FINDINGS: The lungs appear clear of acute infiltrate. The heart is mildly enlarged IMPRESSION: No acute abnormalities displayed
[2022-11-28 18:17] LABS: Urine Blood Negative (Negative); Urine Glucose Negative (Negative); Urine Protein Negative (Negative); Urine Specific Gravity 1.015 (1.005-1.030); Urine pH 5.5 (5.0-7.0)
--- NOTE | 2022-11-28 18:17 | ER ---
Nurse's Notes [facility] Name: Mauro Marina Age: 87 yrs Sex: Male : 1935 Arrival Date: 11/28/2022 Time: 13:55 Bed 17 Private MD: Ragini Linton; Taisha Florence Atiq Diagnosis: Edema, unspecified;Unspecified combined systolic (congestive) and diastolic (congestive) heart failure;Chronic atrial fibrillation Presentation: 11/28 13:59 Chief complaint: Daughter reports worsening bilateral lower leg swelling x 3 months, hb weeping foot wounds this week. Coronavirus screen: At this time, the client does not indicate any symptoms associated with coronavirus-19. Ebola Screen: No symptoms or risks identified at this time. Initial Sepsis Screen: Does the patient meet any 2 criteria? No. Patient's initial sepsis screen is negative. Does the patient have a suspected source of infection? No. Patient's initial sepsis screen is negative. Risk Assessment: Do you want to hurt yourself or someone else? Patient reports no desire to harm self or others. Onset of symptoms is unknown. 13:59 Method Of Arrival: Ambulatory hb 13:59 Acuity: CYRUS 3 hb Triage Assessment: 14:05 General: Behavior is. kr3 14:15 General: Appears in no apparent distress. comfortable. kr3 Historical: - Allergies: 14:00 Demerol; hb 14:00 PENICILLINS; hb - PMHx: 14:00 Atrial fibrillation; CHF; Dementia; diabetes mellitus; Hypertensive disorder; hb Hypothyroidism; BPH; - PSHx: 14:00 neck; Right Nephrectomy; hb - Immunization history:: Adult Immunizations unknown. - Social history:: Smoking status: unknown. Screenin:05 Abuse screen: Denies threats or abuse. Nutritional screening: No deficits noted. kr3 Tuberculosis screening: No symptoms or risk factors identified. Assessment: 15:00 Reassessment: Patient appears in no apparent distress at this time. Patient and/or kr3 family updated on plan of care and expected duration. Pain level reassessed. 16:00 Reassessment: Patient appears in no apparent distress at this time. Patient and/or kr3 family updated on plan of care and expected duration. Pain level reassessed. 17:25 Reassessment: assisted patient bedside, was able to pass 425 mL of clear yellow urine. kr3 18:07 Reassessment: client assisted to beside. was able to void approximately 280 mL of kc6 clear, yellow urine into the urinal. Vital Signs: 13:59 BP 148 / 71; Pulse 67; Resp 16; Temp 98.3; Pulse Ox 98% on R/A; Weight 81.65 kg; Height hb 5 ft. 9 in. (175.26 cm); 15:00 BP 143 / 83; Pulse 56; Resp 17; Pulse Ox 100% ; kr3 16:00 BP 147 / 79; Pulse 63; Resp 17; Pulse Ox 100% on R/A; kr3 17:00 BP 154 / 105; Pulse 82; Resp 18 S; Pulse Ox 99% on R/A; kc6 13:59 Body Mass Index 26.58 (81.65 kg, 175.26 cm) hb ED Course: 13:55 Patient arrived in ED. as 13:55 Ragini Linton is Private Physician. as 13:55 Taisha Florence MD is Private Physician. as 13:55 Ming Smith PA is PHCP. cp 13:55 Doug Clarke MD is Attending Physician. cp 13:56 Doug Clarke MD is Attending Physician. cp 14:00 Triage completed. hb 14:00 Arm band placed on. hb 14:00 Bed in low position. Call light in reach. Side rails up X 1. kr3 14:04 Christina Sutton, RN is Primary Nurse. kr3 15:28 US Extremity Venous W Compression Travis In Process Unspecified. EDMS 15:34 Lab(s) recollected, by me, sent to lab. Inserted saline lock: 22 gauge in left vg1 antecubital area, using aseptic technique. Blood collected. 15:45 XRAY Chest (1 view) In Process Unspecified. EDMS 17:46 Bladder scan completed. 288 mL. kr3 18:17 Urine Microscopic Only Sent. kc6 19:00 No provider procedures requiring assistance completed. IV discontinued, intact, kr3 bleeding controlled, No redness/swelling at site. Pressure dressing applied. Administered Medications: 16:31 Drug: Lasix (furosemide) 40 mg Route: IVP; Site: left antecubital; kr3 21:33 Follow up: Response: No adverse reaction kr3 Medication: 16:15 VIS not applicable for this client. kr3 Outcome: 18:17 Discharge ordered by . franko 19:00 Discharged to home ambulatory. kr3 19:00 Condition: stable 19:00 Discharge instructions given to patient, family, Instructed on discharge instructions, follow up and referral plans. Demonstrated understanding of instructions, follow-up care. 19:05 Patient left the ED. kr3 Signatures: Dispatcher [employer] EDMS Haley Melendez Corey, PA PA cp Baxter, Heather, RN RN Jaycee Dumas RN RN vg1 Christina Sutton RN RN kr3 Lexii Diamond RN RN kc6 Corrections: (The following items were deleted from the chart) 16:35 14:00 BP 124 / 63; Pulse 65bpm; Resp 18bpm; Pulse Ox 100% RA; kr3 kr3
--- NOTE | 2022-11-28 18:17 | EDPHYS ---
Physician Documentation [facility] Name: Mauro Marina Age: 87 yrs Sex: Male : 1935 Arrival Date: 11/28/2022 Time: 13:55 Bed 17 Private MD: Ragini Linton; Taisha Florence Atiq ED Physician Doug Clarke HPI: 11/28 14:25 This 87 yrs old Male presents to ER via Ambulatory with complaints of Leg Swelling, cp Feet Swelling, Wound Check. 14:25 The patient presents with swelling, tenderness. cp 14:25 The complaints affect the right lower leg and left lower leg. Onset: The cp symptoms/episode began/occurred 3 month(s) ago, and became worse 1 week(s) ago. Associated signs and symptoms: Pertinent negatives warmth, fever, cough, shortness of breath. 14:25 Daughter reports [facility] a [facility] and concerned that cp patient has not been receiving prescribed Lasix as scheduled. Reports increasing swelling to lower legs and feet over past week. Reports noticing fluids leak from lower legs. Historical: - Allergies: 14:00 Demerol; hb 14:00 PENICILLINS; hb - PMHx: 14:00 Atrial fibrillation; CHF; Dementia; diabetes mellitus; Hypertensive disorder; hb Hypothyroidism; BPH; - PSHx: 14:00 neck; Right Nephrectomy; hb - Immunization history:: Adult Immunizations unknown. - Social history:: Smoking status: unknown. ROS: 14:30 Constitutional: Negative for body aches, chills, fever, poor PO intake. cp 14:30 Eyes: Negative for injury, pain, redness, and discharge. cp 14:30 ENT: Negative for drainage from ear(s), ear pain, sore throat, difficulty swallowing, difficulty handling secretions. 14:30 Cardiovascular: Positive for edema, Negative for chest pain, palpitations. 14:30 Respiratory: Negative for cough, shortness of breath, wheezing. 14:30 Abdomen/GI: Negative for abdominal pain, nausea, vomiting, and diarrhea. 14:30 Back: Negative for pain at rest, pain with movement. 14:30 : Negative for urinary symptoms. 14:30 Neuro: Negative for altered mental status, dizziness, headache, numbness, syncope, weakness. 14:30 All other systems are negative. Exam: 14:35 Constitutional: The patient appears in no acute distress, alert, awake, cp non-diaphoretic, non-toxic, well developed, well nourished. 14:35 Head/Face: Normocephalic, atraumatic. cp 14:35 Eyes: Periorbital structures: appear normal, Conjunctiva: normal, no exudate, no injection, Sclera: no appreciated abnormality, Lids and lashes: appear normal, bilaterally. 14:35 ENT: External ear(s): are unremarkable, Nose: is normal, Mouth: Lips: moist, Oral mucosa: moist, Posterior pharynx: is normal, airway is patent, no erythema, no exudate. 14:35 Chest/axilla: Inspection: normal. cp 14:35 Cardiovascular: Rate: normal, Rhythm: irregular, Edema: pedal edema, that is moderate, ankle edema, that is moderate, JVD: is not appreciated. 14:35 Respiratory: the patient does not display signs of respiratory distress, Respirations: normal, no use of accessory muscles, no retractions, labored breathing, is not present, Breath sounds: are clear throughout, no decreased breath sounds, no stridor, no wheezing. 14:35 Abdomen/GI: Inspection: distension, that is moderate, Bowel sounds: active, all quadrants, Palpation: abdomen is soft and non-tender, in all quadrants. 14:35 Skin: cellulitis, is not appreciated. 14:35 Neuro: Orientation: no acute changes, per family, Mentation: no acute changes, per family, Motor: moves all fours, strength is normal. 15:43 ECG was reviewed by the Attending Physician. cp Vital Signs: 13:59 BP 148 / 71; Pulse 67; Resp 16; Temp 98.3; Pulse Ox 98% on R/A; Weight 81.65 kg; Height hb 5 ft. 9 in. (175.26 cm); 15:00 BP 143 / 83; Pulse 56; Resp 17; Pulse Ox 100% ; kr3 16:00 BP 147 / 79; Pulse 63; Resp 17; Pulse Ox 100% on R/A; kr3 17:00 BP 154 / 105; Pulse 82; Resp 18 S; Pulse Ox 99% on R/A; kc6 13:59 Body Mass Index 26.58 (81.65 kg, 175.26 cm) hb MDM: 14:01 Patient medically screened. cp 18:15 Data reviewed: vital signs, nurses notes, lab test result(s), EKG, radiologic studies, cp plain films, ultrasound. 18:15 Consideration of Admission/Observation Escalation of care including cp admission/observation considered. Test considered but Not performed: CT: chest. Historians other than the Patient: Daughter/Son: daughter provides HPI. Care significantly affected by the following chronic conditions: Diabetes, Hypertension, Congestive Heart Failure, A-fib. Counseling: I had a detailed discussion with the patient and/or guardian regarding: the historical points, exam findings, and any diagnostic results supporting the discharge/admit diagnosis, lab results, radiology results, the need for outpatient follow up, an die drawing checker, to return to the emergency department if symptoms worsen or persist or if there are any questions or concerns that arise at home. Response to treatment: the patient's symptoms have mildly improved after treatment, and as a result, I will discharge patient. ED course: Discussed results of labs, vitals and radiology studies with hospitalist DR Clarke. Reports patient does not meet admission criteria and that prescribed meds need to be taken as scheduled. Recommends discharge and Lasix can be doubled for next 5 days if Lasix has been taken as prescribed. 11/28 14:21 Order name: Basic Metabolic Panel; Complete Time: 16:10 cp / 16:10 Interpretation: Normal except: CL 108; BUN 30; CRE 1.75; GFR 37. cp 11/28 14:21 Order name: CBC with Diff; Complete Time: 16:10 cp 11/28 14:21 Order name: LFT's; Complete Time: 16:10 cp 02/04 16:11 Interpretation: Normal except: ALK 131; A/G 1.0. cp 11/28 14:21 Order name: Magnesium; Complete Time: 16:10 cp / 14:21 Order name: NT PRO-BNP; Complete Time: 16:10 cp 02/04 16:10 Interpretation: Abnormal: NT PRO-BNP 2075. cp / 14:21 Order name: PT-INR; Complete Time: 16:10 cp 02/ 14:21 Order name: Troponin HS; Complete Time: 16:10 cp 11/28 14:21 Order name: XRAY Chest (1 view); Complete Time: 16:42 cp 02/ 14:21 Order name: EKG; Complete Time: 14:21 cp 11/28 14:21 Order name: Cardiac monitoring; Complete Time: 15:42 cp 11/28 14:21 Order name: US Extremity Venous W Compression Travis; Complete Time: 16:10 cp 11/28 17:51 Order name: Urine Microscopic Only cp 11/28 18:17 Order name: Urine Dipstick-Ancillary EDMS 11/28 14:21 Order name: EKG - Nurse/Tech; Complete Time: 15:42 cp 11/28 14:21 Order name: IV Saline Lock; Complete Time: 15:39 cp 11/28 14:21 Order name: Labs collected and sent; Complete Time: 15:01 cp 11/28 14:21 Order name: O2 Per Protocol; Complete Time: 15:01 cp 11/28 14:21 Order name: O2 Sat Monitoring; Complete Time: 15:01 cp 11/28 15:12 Order name: Labs - recollect needed: recollect all the blood/ hemolyzed; Complete Time: eb 15:40 11/28 16:59 Order name: Bladder Scanner; Complete Time: 17:46 cp 11/28 17:51 Order name: Urine Dipstick-Ancillary (obtain specimen); Complete Time: 18:17 cp EC:43 Rate is 78 beats/min. Rhythm is irregular. QRS interval is normal. QT interval is cp normal. T waves are Inverted in leads V5, V6. Interpreted by me. Reviewed by me. Administered Medications: 16:31 Drug: Lasix (furosemide) 40 mg Route: IVP; Site: left antecubital; kr3 21:33 Follow up: Response: No adverse reaction kr3 Disposition Summary: 11/28/22 18:17 Discharge Ordered Location: Home cp Problem: an acute exacerbation cp Symptoms: have improved cp Condition: Stable cp Diagnosis - Edema, unspecified cp - Unspecified combined systolic (congestive) and diastolic (congestive) heart failure cp - Chronic atrial fibrillation cp Followup: cp - With: Private Physician - When: 2 - 3 days - Reason: Recheck today's complaints Discharge Instructions: - Discharge Summary Sheet cp - Heart Failure, Diagnosis cp - Edema cp - Peripheral Edema cp Forms: - Medication Reconciliation Form cp - Thank You Letter cp - Antibiotic Education cp - Prescription Opioid Use cp Signatures: Dispatcher [employer] EDMS Ming Smith PA PA cp Silva, Aysha, JUSTUS RN Courtney Grimaldo Kelley RN RN kr3 Corrections: (The following items were deleted from the chart) 18: 16:59 Pam [email or web address] 11/29 18:12 0204 14:25 Onset: The symptoms/episode began/occurred gradually, cp cp
[2022-11-28 18:37] LABS: Urine Bacteria None Seen /HPF (<20); Urine Mucus Slight /HPF (None Seen); Urine RBC <5 /HPF (None Seen)
[2022-11-28 19:15] VITALS: TEMP 98.3
[2022-11-28 19:31] VITALS: BP 154/105; O2SAT 99
== END 2022-11-28 19:05 | disposition home or self-care (01) ==
LOC: ER 13:50
DX: R60.9 Edema, unspecified (principal); I50.40 Unspecified combined systolic (congestive) and diastolic (congestive) heart failure; I48.19 Other persistent atrial fibrillation; I10 Essential (primary) hypertension; F03.90 Unspecified dementia, unspecified severity, without behavioral disturbance, psychotic disturbance, mood disturbance, and anxiety; Z88.0 Allergy status to penicillin; Z88.5 Allergy status to narcotic agent
CPT/HCPCS: 85025; 80048; 36415; 83735; 85610; 80076; 84484; 83880; 71045; 93970; J1940; 81003; 81015; 93005; 96374; 99284